=== PATIENT | male | born 1960 | race Caucasian/White ===

== ENCOUNTER 2019-11-02 23:58 | Inpatient (IN) ==
[2019-11-03] MEDS ORDERED: methylPREDNISolone 125 MG/2 ML VIAL IV STA (00:19)
[2019-11-03] MEDS ORDERED: ALBUT/IPRATROP 3MG/0.5MG NEB 3 ML VIAL NEB ONE (00:19)
[2019-11-03] MEDS ORDERED: ASPIRIN 300 MG SUPP PR ONE (00:21)
[2019-11-03 00:28] LABS: iSTAT Creatinine 2.4 mg/dl (0.6-1.3); iSTAT Hemoglobin 14.6 g/dl (14.0-18.0); iSTAT Ionized Calcium 1.13 mmol/l (1.12-1.32); iSTAT Potassium 4.3 mEq/L (3.3-5.0)
[2019-11-03] MEDS ORDERED: SODIUM CHLORIDE 0.9% 1000ML 1,000 ML IV SCH (00:30)
[2019-11-03] MEDS: MAGNESIUM SULFATE / D5W 1 GM/100 ML BAG IV SCH ×2 (00:30→01:48)
[2019-11-03] MEDS ORDERED: OPTIRAY 320 125ml IV PRN (00:31)
[2019-11-03] MEDS ORDERED: fentaNYL citrate 100 MCG/2 ML VIAL IV STA (00:31)
[2019-11-03] MEDS ORDERED: ONDANSETRON INJ 2 MG/ML 2 ML VIAL IV STA (00:31)
[2019-11-03] MEDS ORDERED: RAPID SEQUENCE INDUCTION BAG ONE (00:35)
[2019-11-03 00:41] LABS: Basophils # (auto) 0.05 K/uL (0-0.2); Basophils % (auto) 0.4 %; Eosinophils # (auto) 0.27 K/uL (0-0.5); Eosinophils % (auto) 2.4 %; Hematocrit (blood only) 40.2 % (42-52); Immature Granulocytes # (auto) 0.03 K/uL (0.00-0.02); Immature Granulocytes % (auto) 0.3 %; Lymphocytes # (auto) 4.31 K/uL (1.2-3.4); Lymphocytes % (auto) 37.6 %; Mean Corpuscular Hemoglobin 33.3 pg (25-34); Mean Corpuscular Hgb Conc 34.8 g/dL (32-36); Mean Corpuscular Volume 95.5 fL (80-100); Mean Platelet Volume 9.4 fL (7.4-10.4); Monocytes # (auto) 1.26 K/uL (0.11-0.59); Neutrophils # (auto) 5.53 K/uL (1.4-6.5); Neutrophils % (auto) 48.3 %; Platelet Count 282 K/uL (130-400); RDW Coefficient of Variation 13.2 % (11.5-14.5); RDW Standard Deviation 46.1 fL (36.4-46.3); Red Blood Count 4.21 M/uL (4.7-6.1); White Blood Count 11.45 K/uL (4.8-10.8)
[2019-11-03] MEDS ORDERED: FUROSEMIDE 40 MG/4 ML VIAL IV STA (00:46)
[2019-11-03] MEDS ORDERED: PROPOFOL IV EMULSION 10 MG/ML 100 ML VIAL IV ONE (00:46)
[2019-11-03] MEDS ORDERED: NITROGLYCERIN 2% OINTMENT 30GM TUBE EXT STA (00:48)
[2019-11-03] MEDS ORDERED: FUROSEMIDE 40 MG/4 ML VIAL IV ONE (00:48)
[2019-11-03 00:49] LABS: Albumin Level 3.3 gm/dl (3.4-5.0); BUN Creatinine Ratio 9.9 (10-20); Calcium 8.7 mg/dl (8.5-10.1); Creatinine Clr Calc Pharmacy 30.9 ml/min; Est GFR (Non-African American) 30.2; Potassium 4.2 mmol/L (3.5-5.1)
[2019-11-03] MEDS ORDERED: NITROGLYCERIN 2% OINTMENT 30GM TUBE ONE (00:49)
[2019-11-03 00:52] LABS: Albumin Globulin Ratio 0.8 (0.9-2); Bilirubin,Total 0.3 mg/dl (0.2-1); Globulin 4.3 gm/dl (2.5-4.0); Total Protein 7.6 gm/dl (6.4-8.2)
[2019-11-03 00:53] LABS: INR 0.9 (0.9-1.1); Partial Thromboplastin Ratio 0.9; Partial Thromboplastin Time 24.8 Seconds (21.0-31.0); Prothrombin Time 9.7 Seconds (9.0-12.0)
[2019-11-03] MEDS: PROPOFOL 1,000 MG/100 ML VIAL IV SCH ×2 (00:53→07:16)
[2019-11-03] MEDS ORDERED: PROPOFOL IV EMULSION 10 MG/ML 20 ML VIAL IV STA (01:05)
[2019-11-03] MEDS ORDERED: fentaNYL citrate 100 MCG/2 ML VIAL IV ONE (01:32)
--- NOTE | 2019-11-03 01:39 | History & Physical Report ---
Date of Service November 03, 2019 Assessment & Plan (1) Admitted to intensive care unit: Patient is admitted to the intensive care unit with acute respiratory failure and intubated in ED. Present on Admission?: Yes (2) Acute respiratory failure with hypoxia and hypercapnia: Acute respiratory failure with hypoxia and hypercapnia/acute exacerbation of CHF/COPD- Admitted to the ICU on mechanical ventilator- Follow serial CBC with differential, chemistry profile, magnesium, coags, serial troponins, and ABGs. Order 2D echocardiogram with Dopplers. Bicarb supplementation by push or drip Present on Admission?: Yes (3) Acute exacerbation of CHF (congestive heart failure): Order 2D echocardiogram with Dopplers. Chest x-ray suggests CHF. Will need diuresis. Pressure will need to be monitored closely, and may need to be supported while diuresing Present on Admission?: Yes (4) COPD (chronic obstructive pulmonary disease): Placed on duo nebs. Patient did have vomiting after intubation. OG tube was placed. Monitor for aspiration pneumonia Present on Admission?: Yes (5) Peripheral vascular disease: History of previous surgeries as noted in HPI. No acute issues at this time Present on Admission?: Yes (6) Hyperlipidemia: Unknown if on medications at this time. Check a fasting lipid panel Present on Admission?: Yes (7) Hypertension: Noted in history, Medication list unavailable at this time. Blood pressure decrease significantly from the 170s to the 130s as propofol has been titrated. Severe right kidney injury noted on ultrasound. Noted severe renal artery stenosis on the right and moderate stenosis on the left. Given IV dye by necessity during examination in ED. Monitor labs serially. Present on Admission?: Yes (8) CAD (coronary artery disease): History of severe RCA occlusion noted from chart review in 2003. History is limited. Present on Admission?: Yes History of Present Illness Chief Complaint: The patient initially presented to the emergency department with complaint of chest and left arm pain and shortness of breath that began about 2 hours prior to arrival, and worsened about 1 hour prior to arrival Primary Care Provider: Carmen Viramontes PA-C The patient is a 59-year-old male with a past medical history including PVD s/p right common iliac to right femoral bypass in 1999, aortobifemoral bypass in 06/2004, CAD with chronic RCA occlusion, HTN, tobacco abuse, COPD and hyperlipidemia as determined from chart review. He presented with the above symptoms, worsening during examination in the ED, and was intubated by Dr. Atkinson. At the time of my exam, the patient was intubated and sedated and not able to contribute to HPI or review of systems. Allergies Allergy/AdvReac Type Severity Reaction Status Date / Time No Known Allergies Allergy Unknown Verified 11/03/19 00:34 Home Medications Home Medications Medication Instructions Recorded Confirmed Type aspirin 81 mg PO DAILY 11/03/19 11/03/19 History Past Med/Surg History Medical History No pertinent past medical history Surgical History No pertinent past surgical history Social History Preferred Language: Indonesian Current Living Situation: Other Current Living Situation Comment: unknown pt intubated and sedated. no family present Feels Safe at Home: Yes Smoking Status: Unknown if ever smoked Review of Systems Review of Systems: Unobtainable due to reduced consciousness Physical Exam Physical Exam: The patient is intubated and sedated, normocephalic and atraumatic. HEENT--PERRL, mucous membranes and oropharynx dry. Neck--supple. No JVD. No bruits. Thyroid normal, trachea midline, no adenopathy. Heart--normal S1 and S2. No murmurs, rubs or gallops. Lungs--coarse breath sounds bilaterally. Abdomen--normal bowel sounds and soft. Nontender. Nondistended. Extremities--no cyanosis or clubbing. No edema. Dermatologic--normal skin turgor, normal color, no abnormal lymph nodes, no rash. Neurologic--limited exam Rheumatologic--limited exam Psychiatric--sedated and intubated Results & Data Vital Signs (Past 12 Hours) Vital Signs Temp Pulse Pulse Resp BP Pulse Ox 11/03/19 00:50 94 H 12 90 11/03/19 00:42 91 11/03/19 00:40 119 H 24 90 11/03/19 00:39 93 H 18 91 11/03/19 00:30 105 H 35 H 183/95 H 99 11/03/19 00:25 105 H 35 H 99 11/03/19 00:24 103 H 36 H 179/104 H 96 11/03/19 00:21 104 H 31 H 145/101 H 11/03/19 00:20 94 11/03/19 00:19 109 H 31 H 168/107 H 99 11/03/19 00:03 99 H 30 H 133/80 66 L 11/02/19 23:59 98.4 F 101 H 36 H 133/80 66 L Laboratory Results Laboratory Results WBC 11.45 K/uL (4.8-10.8) H 11/03/19 00:05 RBC 4.21 M/uL (4.7-6.1) L 11/03/19 00:05 Hgb 14.0 g/dL (14.0-18.0) 11/03/19 00:05 POC Hgb 14.6 g/dl (14.0-18.0) 11/03/19 00:16 Hct 40.2 % (42-52) L 11/03/19 00:05 POC Hct 43 % (42-52) 11/03/19 00:16 MCV 95.5 fL (80-100) 11/03/19 00:05 MCH 33.3 pg (25-34) 11/03/19 00:05 MCHC 34.8 g/dL (32-36) 11/03/19 00:05 RDW Std Deviation 46.1 fL (36.4-46.3) 11/03/19 00:05 RDW Coeff of Monika 13.2 % (11.5-14.5) 11/03/19 00:05 Plt Count 282 K/uL (130-400) 11/03/19 00:05 MPV 9.4 fL (7.4-10.4) 11/03/19 00:05 Immature Gran % (Auto) 0.3 % 11/03/19 00:05 Neut % (Auto) 48.3 % 11/03/19 00:05 Lymph % (Auto) 37.6 % 11/03/19 00:05 Irwin % (Auto) 11.0 % 11/03/19 00:05 Eos % (Auto) 2.4 % 11/03/19 00:05 Baso % (Auto) 0.4 % 11/03/19 00:05 Immature Gran # (Auto) 0.03 K/uL (0.00-0.02) H 11/03/19 00:05 Neut # (Auto) 5.53 K/uL (1.4-6.5) 11/03/19 00:05 Lymph # (Auto) 4.31 K/uL (1.2-3.4) H 11/03/19 00:05 Irwin # (Auto) 1.26 K/uL (0.11-0.59) H 11/03/19 00:05 Eos # (Auto) 0.27 K/uL (0-0.5) 11/03/19 00:05 Baso # (Auto) 0.05 K/uL (0-0.2) 11/03/19 00:05 PT 9.7 Seconds (9.0-12.0) 11/03/19 00:05 INR 0.9 (0.9-1.1) 11/03/19 00:05 APTT 24.8 Seconds (21.0-31.0) 11/03/19 00:05 PTT Ratio 0.9 11/03/19 00:05 POC Sodium 128 mEq/L (135-144) L 11/03/19 00:16 Sodium 129 mmol/L (136-145) L 11/03/19 00:05 POC Potassium 4.3 mEq/L (3.3-5.0) 11/03/19 00:16 Potassium 4.2 mmol/L (3.5-5.1) 11/03/19 00:05 POC Chloride 98 mEq/L (101-112) L 11/03/19 00:16 Chloride 97 mmol/L (98-107) L 11/03/19 00:05 Carbon Dioxide 21 mmol/L (21-32) 11/03/19 00:05 POC Total CO2 21 mEq/l (24-31) L 11/03/19 00:16 Anion Gap 11.0 (3-11) 11/03/19 00:05 POC Anion Gap 14.0 mmol/L (16-25) L 11/03/19 00:16 POC BUN 22 mg/dl (7-18) H 11/03/19 00:16 BUN 22 mg/dl (7-18) H 11/03/19 00:05 Creatinine 2.26 mg/dl (0.6-1.4) H 11/03/19 00:05 POC Creatinine 2.4 mg/dl (0.6-1.3) H 11/03/19 00:16 Est Cr Clr Drug Dosing 30.9 ml/min 11/03/19 00:05 Est GFR ( Amer) 35.0 11/03/19 00:05 Est GFR (Non-Af Amer) 30.2 11/03/19 00:05 BUN/Creatinine Ratio 9.9 (10-20) L 11/03/19 00:05 Glucose 104 mg/dl (70-99) H 11/03/19 00:05 POC Glucose (other) 104 mg/dl (70-99) H 11/03/19 00:16 Lactate 1.6 mmol/L (0.4-2.0) 11/03/19 01:36 Calcium 8.7 mg/dl (8.5-10.1) 11/03/19 00:05 POC Ioniz Calcium Alejandro 1.13 mmol/l (1.12-1.32) 11/03/19 00:16 Total Bilirubin 0.3 mg/dl (0.2-1) 11/03/19 00:05 AST 20 U/L (15-37) 11/03/19 00:05 ALT 16 U/L (12-78) 11/03/19 00:05 Alkaline Phosphatase 89 U/L (45-117) 11/03/19 00:05 POC Troponin I 0.07 ng/ml (0-0.045) H 11/03/19 00:22 Troponin I 0.619 ng/ml (0-0.045) H* 11/03/19 01:36 Total Protein 7.6 gm/dl (6.4-8.2) 11/03/19 00:05 Albumin 3.3 gm/dl (3.4-5.0) L 11/03/19 00:05 Globulin 4.3 gm/dl (2.5-4.0) H 11/03/19 00:05 Albumin/Globulin Ratio 0.8 (0.9-2) L 11/03/19 00:05 Lipase 359 U/L (73-393) 11/03/19 00:05 Ethyl Alcohol mg/dL < 3.0 mg/dl (0-3) 11/03/19 01:36 Code Status & VTE Plan Code Status Full code VTE Prophylaxis Plan VTE Prophylaxis will be ordered: Yes Critical Care Time Critical Care Time: Yes Total Critical Care Time: 45 Total critical care time was 45 minutes PG Care Time/CCT Total # of Minutes Spent Total Time Spent with Patient: Total time spent is greater than 50% in coordination of care (as documented) at patient's floor/unit and/or counseling patient: Critical Care Time: Yes Total Critical Care Time: 45
--- NOTE | 2019-11-03 01:45 | Emergency Department Note ---
Entered by Binta Gómez acting as a scribe for Maki Atkinson MD History of Present Illness General Chief complaint: Chest Pain Stated complaint: CAN'T BREATHE,CHEST PAIN,PAIN LFT ARM Source: patient History of Present Illness Onset (ago): hour(s) 2 Location: chest Severity: similar to prior episodes Pain Consistency: + constant Maximum Pain Intensity: 10 Current Pain Intensity: 10 Exacerbated By: + other (breathing) Associated symptoms: + denies other symptoms (denies back pain), + chest pain and + shortness of breath The patient is a 59 year old male who presents to the Emergency Room with complaints of chest pain that first began 2 hours prior to arrival, around 22:00. The patient states that he was in bed tonight when he experienced pain in his left chest and left arm, which was exacerbated with breathing. He reports that about an hour later, he was unable to catch his breath. The patient notes that he has had a heart attack in the past, but denies a history of coronary stents. He denies back pain. The patient has a history of smoking and drinking. Home Medications Home Medications Medication Instructions Recorded Confirmed Type aspirin 81 mg PO DAILY 11/03/19 11/03/19 History Allergies Allergy/AdvReac Type Severity Reaction Status Date / Time No Known Allergies Allergy Unknown Verified 11/03/19 00:34 Past Med/Surg History Medical History CAD (coronary artery disease) COPD (chronic obstructive pulmonary disease) Hyperlipidemia Hypertension No pertinent past medical history Peripheral vascular disease Surgical History No pertinent past surgical history Social History Preferred Language: Amharic Current Living Situation: Other Current Living Situation Comment: unknown pt intubated and sedated. no family present Feels Safe at Home: Yes Smoking Status: Unknown if ever smoked Review of Systems See HPI for pertinent positives & negatives. and A total of 10 systems reviewed and were otherwise negative Physical Exam Vital Signs Vital Signs - 24 hr 11/02/19 23:59 11/03/19 00:03 11/03/19 00:19 Temperature 36.9 C Temperature Source Oral Pulse Rate 101 H 99 H 109 H Pulse Rate [Right Finger] Pulse Rate from SpO2 Sensor 100 H 108 H Pulse Rhythm Regular Pulse Strength Normal Respiratory Rate 36 H 30 H 31 H Respiratory Effort / Characteristics Labored Retracting Short of Breath Respiratory Depth Respiratory Pattern Regular Blood Pressure 133/80 133/80 168/107 H Blood Pressure Mean 97 84 131 Blood Pressure Position Lying Pulse Oximetry 66 L 66 L 99 Oxygen Delivery Method Room Air Oxygen Flow Rate Fraction of Inspired Oxygen Sepsis Recent Fever Within 48 Hours No Sepsis New/Unexplained Change in Mental Status No Sepsis Action Taken by Nursing No Action Required 11/03/19 00:20 11/03/19 00:21 11/03/19 00:24 Temperature Temperature Source Pulse Rate 104 H 103 H Pulse Rate [Right Finger] Pulse Rate from SpO2 Sensor 103 H Pulse Rhythm Pulse Strength Respiratory Rate 31 H 36 H Respiratory Effort / Characteristics Respiratory Depth Respiratory Pattern Blood Pressure 145/101 H 179/104 H Blood Pressure Mean 119 121 Blood Pressure Position Pulse Oximetry 94 96 Oxygen Delivery Method Non-rebreather Oxygen Flow Rate 15 Fraction of Inspired Oxygen Sepsis Recent Fever Within 48 Hours Sepsis New/Unexplained Change in Mental Status Sepsis Action Taken by Nursing 11/03/19 00:25 11/03/19 00:30 11/03/19 00:39 Temperature Temperature Source Pulse Rate 105 H 93 H Pulse Rate [Right Finger] 105 H Pulse Rate from SpO2 Sensor 104 H Pulse Rhythm Pulse Strength Respiratory Rate 35 H 35 H 18 Respiratory Effort / Characteristics Spontaneous Accessory Muscle Use Moaning Spontaneous Accessory Muscle Use Labored Respiratory Depth Deep Respiratory Pattern Tachypnea Blood Pressure 183/95 H Blood Pressure Mean 139 Blood Pressure Position Pulse Oximetry 99 99 91 Oxygen Delivery Method BiPAP Oxygen Flow Rate Fraction of Inspired Oxygen 70 70 100 Sepsis Recent Fever Within 48 Hours Sepsis New/Unexplained Change in Mental Status Sepsis Action Taken by Nursing 11/03/19 00:40 11/03/19 00:42 11/03/19 00:50 Temperature Temperature Source Pulse Rate 119 H 94 H Pulse Rate [Right Finger] Pulse Rate from SpO2 Sensor 120 H 94 H Pulse Rhythm Pulse Strength Respiratory Rate 24 12 Respiratory Effort / Characteristics Respiratory Depth Respiratory Pattern Blood Pressure Blood Pressure Mean Blood Pressure Position Pulse Oximetry 90 91 90 Oxygen Delivery Method Oxygen Flow Rate Fraction of Inspired Oxygen Sepsis Recent Fever Within 48 Hours Sepsis New/Unexplained Change in Mental Status Sepsis Action Taken by Nursing 11/03/19 01:00 11/03/19 01:10 11/03/19 01:15 Temperature Temperature Source Pulse Rate 107 H 95 H 95 H Pulse Rate [Right Finger] Pulse Rate from SpO2 Sensor 108 H 95 H 97 H Pulse Rhythm Pulse Strength Respiratory Rate 32 H 34 H 35 H Respiratory Effort / Characteristics Respiratory Depth Respiratory Pattern Blood Pressure 175/93 H 154/81 H Blood Pressure Mean 128 115 Blood Pressure Position Pulse Oximetry 90 92 95 Oxygen Delivery Method Oxygen Flow Rate Fraction of Inspired Oxygen Sepsis Recent Fever Within 48 Hours Sepsis New/Unexplained Change in Mental Status Sepsis Action Taken by Nursing 11/03/19 01:20 11/03/19 01:25 11/03/19 01:30 Temperature Temperature Source Pulse Rate 101 H 93 H 94 H Pulse Rate [Right Finger] Pulse Rate from SpO2 Sensor 101 H 94 H 95 H Pulse Rhythm Pulse Strength Respiratory Rate 36 H 30 H 30 H Respiratory Effort / Characteristics Respiratory Depth Respiratory Pattern Blood Pressure 153/70 H 143/76 H Blood Pressure Mean 96 93 Blood Pressure Position Pulse Oximetry 94 97 96 Oxygen Delivery Method Oxygen Flow Rate Fraction of Inspired Oxygen Sepsis Recent Fever Within 48 Hours Sepsis New/Unexplained Change in Mental Status Sepsis Action Taken by Nursing Vital signs reviewed. General: Critically ill-appearing male, in no significant distress. HEENT: No scleral icterus, PERRLA, neck supple. Atraumatic. Cardiovascular: Tachycardic. Regular rate and rhythm, no extra sounds. Pulmonary: Tachypneic. Course breath sounds bilaterally, increased work of breathing. Abdomen: Soft, nontender, nondistended, positive bowel sounds. Post-surgical change to the mid abdomen Musculoskeletal: Atraumatic, no peripheral edema. Neurologic: Awake but somnolent. Answers simple questions appropriately Skin: Warm, dry, no rash Procedures Intubation Time out performed: Yes sedative: Etomidate Mg Given: 20 paralytic: Succinylcholine Mg Given: 100 Laryngoscope: fiber optic video scope ET Tube Size: 7.5 ET Tube Uncuffed: No Tube Secured Depth (cm): 23 Tube Secured Location: teeth Tube Placement Confirmation: visualized tube passing through cords, equal breath sounds bilaterally and confirmation by capnometry Patient Tolerated Procedure: well and no complications Intubation Complications: none Course Course 0002: Past medical records reviewed. The patient was evaluated in room A09B. A complete history and physical exam was performed. 0010: The patient will go for CT. 0057: I rechecked on the patient, who is going for ultrasound and receiving a Propofol bolus and Lasix 0148: I spoke to Dr. Thomas, who agreed to take over care of the patient. He is evaluating the patient at bedside. Administered Medications Propofol (Diprivan) 1,000 mg in 100 mls @ 11.448 mls/hr IV .Q8H45M [facility]; Protocol Stop: 11/06/19 00:59 Last Titration: 11/03/19 06:59 Dose: 35 mcg/kg/min, 13.4 mls/hr Documented by: [id number] Cosigned by: [id number] Titration: 11/03/19 06:45 Dose: 30 mcg/kg/min, 11.4 mls/hr Documented by: [id number] Cosigned by: [id number] Titration: 11/03/19 05:25 Dose: 30 mcg/kg/min, 11.4 mls/hr Documented by: [id number] Titration: 11/03/19 01:43 Dose: 35 mcg/kg/min, 13.4 mls/hr Documented by: [id number] Titration: 11/03/19 01:15 Dose: 30 mcg/kg/min, 11.4 mls/hr Documented by: [id number] Titration: 11/03/19 01:10 Dose: 20 mcg/kg/min, 7.6 mls/hr Documented by: [id number] Titration: 11/03/19 00:58 Dose: 10 mcg/kg/min, 3.8 mls/hr Documented by: [id number] Admin: 11/03/19 00:53 Dose: 5 mcg/kg/min, 1.9 mls/hr Documented by: [id number] Cosigned by: [id number] Famotidine 20 mg/ Syringe 5 mls @ 2.5 mls/min IV Q12H [facility] Stop: 12/03/19 02:59 Last Admin: 11/03/19 03:20 Dose: 2.5 mls/min Documented by: [id number] Fentanyl Citrate (Fentanyl Drip) 1,250 mcg in 250 mls @ 10 mls/hr IV .Q24H [facility]; Protocol Stop: 11/17/19 02:31 Last Titration: 11/03/19 06:59 Dose: 50 mcg/hr, 10 mls/hr Documented by: [id number] Cosigned by: [id number] Titration: 11/03/19 04:38 Dose: 50 mcg/hr, 10 mls/hr Documented by: [id number] Admin: 11/03/19 03:20 Dose: 25 mcg/hr, 5 mls/hr Documented by: [id number] Cosigned by: [id number] Discontinued Medications Albuterol (Duoneb) 12 ml NEB ONE ONE Stop: 11/03/19 00:20 Last Admin: 11/03/19 01:05 Dose: 12 ml Documented by: [id number] Aspirin (Aspirin) 300 mg OH ONE ONE Stop: 11/03/19 00:22 Last Admin: 11/03/19 00:31 Dose: 300 mg Documented by: [id number] Fentanyl Citrate (Fentanyl Citrate) 50 mcg IV NOW STA Stop: 11/03/19 00:32 Last Admin: 11/03/19 00:44 Dose: Not Given Documented by: [id number] Fentanyl Citrate (Fentanyl Citrate) 25 mcg IV NOW ONE Stop: 11/03/19 01:33 Last Admin: 11/03/19 01:43 Dose: 25 mcg Documented by: [id number] Furosemide (Lasix) 40 mg IV NOW STA Stop: 11/03/19 00:47 Last Admin: 11/03/19 00:53 Dose: 40 mg Documented by: [id number] Furosemide (Lasix) Confirm Administered Dose 40 mg IV .STK-MED ONE Stop: 11/03/19 00:49 Last Admin: 11/03/19 00:54 Dose: Not Given Documented by: [id number] Sodium Chloride (Nss 1000ml) 1,000 mls @ 100 mls/hr IV .Q10H [facility] Stop: 11/03/19 10:29 Last Infusion: 11/03/19 01:46 Dose: 0 mls/hr Documented by: [id number] Admin: 11/03/19 00:30 Dose: 100 mls/hr Documented by: [id number] Magnesium Sulfate/Dextrose (Magnesium Sulfate / D5w) 1 gm in 100 mls @ 100 mls/hr IV Q1H [facility] Stop: 11/03/19 02:29 Last Infusion: 11/03/19 02:14 Dose: 0 mls/hr Documented by: [id number] Admin: 11/03/19 01:48 Dose: 100 mls/hr Documented by: [id number] Infusion: 11/03/19 01:46 Dose: 0 mls/hr Documented by: [id number] Admin: 11/03/19 00:30 Dose: 100 mls/hr Documented by: [id number] Furosemide 40 mg/ Syringe 4 mls @ 4 mls/min IV ONE ONE Stop: 11/03/19 03:46 Last Admin: 11/03/19 04:04 Dose: 4 mls/min Documented by: [id number] Ioversol (Optiray 320 125ml) 125 ml IV ONCE PRN PRN Reason: Interaction Checking Stop: 11/07/19 00:30 Last Admin: 11/03/19 00:32 Dose: 118 ml Documented by: [id number] Methylprednisolone (Solumedrol) 125 mg IV NOW STA Stop: 11/03/19 00:20 Last Admin: 11/03/19 00:30 Dose: 125 mg Documented by: [id number] Miscellaneous () Confirm Administered Dose 1 ea .ROUTE .STK-MED ONE Stop: 11/03/19 00:36 Last Admin: 11/03/19 00:54 Dose: 1 ea Documented by: [id number] Nitroglycerin (Nitro-Bid 2%) 1 inch EXT NOW STA Stop: 11/03/19 00:49 Last Admin: 11/03/19 00:53 Dose: 1 inch Documented by: [id number] Nitroglycerin (Nitro-Bid 2%) Confirm Administered Dose 18 inch .ROUTE .STK-MED ONE Stop: 11/03/19 00:50 Last Admin: 11/03/19 00:54 Dose: Not Given Documented by: [id number] Ondansetron HCl (Zofran) 4 mg IV NOW STA Stop: 11/03/19 00:32 Last Admin: 11/03/19 00:44 Dose: Not Given Documented by: [id number] Propofol (Diprivan) Confirm Administered Dose 1,000 mg IV .STK-MED ONE Stop: 11/03/19 00:47 Last Admin: 11/03/19 00:54 Dose: Not Given Documented by: [id number] Propofol (Diprivan) 50 mg IV NOW STA Stop: 11/03/19 01:06 Last Admin: 11/03/19 01:00 Dose: 50 mg Documented by: [id number] Cosigned by: [id number] Critical Care Time Critical Care Time: Yes I have personally spent greater than 60 minutes of critical care time in the direct management of this patient. This includes bedside care, interpretation of diagnostic studies, and testing, discussion with consultants, patient, and family members, and other required patient management activities. This 60 minutes is in excess of all separately billable procedures. Medical Decision Making Differential Diagnosis Differential diagnosis: Etiologies such as infections, reactive airway disease, COPD, pneumonia, pleural effusion, pulmonary edema, ARDS, pneumothorax, CHF, cardiac ischemia, cardiac tamponade, dysrhythmia, anemia, pulmonary embolism, musculoskeletal, gastrointestinal process, as well as others were entertained. Medical Records Attestation: I reviewed the patient's medical records. Home Medications Current Medication List: was personally reviewed by me Laboratory Data Attestation: I reviewed the patient's lab results. Result diagrams: 11/03/19 04:55 11/03/19 04:55 Lab Results 11/03/19 11/03/19 11/03/19 Range/Units 00:05 00:05 00:05 WBC 11.45 H (4.8-10.8) K/uL RBC 4.21 L (4.7-6.1) M/uL Hgb 14.0 (14.0-18.0) g/dL POC Hgb (14.0-18.0) g/dl Hct 40.2 L (42-52) % POC Hct (42-52) % MCV 95.5 (80-100) fL MCH 33.3 (25-34) pg MCHC 34.8 (32-36) g/dL RDW Std Deviation 46.1 (36.4-46.3) fL RDW Coeff of Monika 13.2 (11.5-14.5) % Plt Count 282 (130-400) K/uL MPV 9.4 (7.4-10.4) fL Immature Gran % (Auto) 0.3 % Neut % (Auto) 48.3 % Lymph % (Auto) 37.6 % [place] % (Auto) 11.0 % Eos % (Auto) 2.4 % Baso % (Auto) 0.4 % Immature Gran # (Auto) 0.03 H (0.00-0.02) K/uL Neut # (Auto) 5.53 (1.4-6.5) K/uL Lymph # (Auto) 4.31 H (1.2-3.4) K/uL [place] # (Auto) 1.26 H (0.11-0.59) K/uL Eos # (Auto) 0.27 (0-0.5) K/uL Baso # (Auto) 0.05 (0-0.2) K/uL PT 9.7 (9.0-12.0) Seconds INR 0.9 (0.9-1.1) APTT 24.8 (21.0-31.0) Seconds PTT Ratio 0.9 POC Sodium (135-144) mEq/L Sodium 129 L (136-145) mmol/L POC Potassium (3.3-5.0) mEq/L Potassium 4.2 (3.5-5.1) mmol/L POC Chloride (101-112) mEq/L Chloride 97 L (98-107) mmol/L Carbon Dioxide 21 (21-32) mmol/L POC Total CO2 (24-31) mEq/l Anion Gap 11.0 (3-11) POC Anion Gap (16-25) mmol/L POC BUN (7-18) mg/dl BUN 22 H (7-18) mg/dl Creatinine 2.26 H (0.6-1.4) mg/dl POC Creatinine (0.6-1.3) mg/dl Est Cr Clr Drug Dosing 30.9 ml/min Est GFR ( Amer) 35.0 Est GFR (Non-Af Amer) 30.2 BUN/Creatinine Ratio 9.9 L (10-20) Glucose 104 H (70-99) mg/dl POC Glucose (other) (70-99) mg/dl Lactate (0.4-2.0) mmol/L Calcium 8.7 (8.5-10.1) mg/dl POC Ioniz Calcium Alejandro (1.12-1.32) mmol/l Total Bilirubin 0.3 (0.2-1) mg/dl AST 20 (15-37) U/L ALT 16 (12-78) U/L Alkaline Phosphatase 89 (45-117) U/L POC Troponin I (0-0.045) ng/ml Troponin I (0-0.045) ng/ml Total Protein 7.6 (6.4-8.2) gm/dl Albumin 3.3 L (3.4-5.0) gm/dl Globulin 4.3 H (2.5-4.0) gm/dl Albumin/Globulin Ratio 0.8 L (0.9-2) Lipase 359 (73-393) U/L Ethyl Alcohol mg/dL (0-3) mg/dl 11/03/19 11/03/19 11/03/19 Range/Units 00:16 00:22 01:36 WBC (4.8-10.8) K/uL RBC (4.7-6.1) M/uL Hgb (14.0-18.0) g/dL POC Hgb 14.6 (14.0-18.0) g/dl Hct (42-52) % POC Hct 43 (42-52) % MCV (80-100) fL MCH (25-34) pg MCHC (32-36) g/dL RDW Std Deviation (36.4-46.3) fL RDW Coeff of Monika (11.5-14.5) % Plt Count (130-400) K/uL MPV (7.4-10.4) fL Immature Gran % (Auto) % Neut % (Auto) % Lymph % (Auto) % [place] % (Auto) % Eos % (Auto) % Baso % (Auto) % Immature Gran # (Auto) (0.00-0.02) K/uL Neut # (Auto) (1.4-6.5) K/uL Lymph # (Auto) (1.2-3.4) K/uL [place] # (Auto) (0.11-0.59) K/uL Eos # (Auto) (0-0.5) K/uL Baso # (Auto) (0-0.2) K/uL PT (9.0-12.0) Seconds INR (0.9-1.1) APTT (21.0-31.0) Seconds PTT Ratio POC Sodium 128 L (135-144) mEq/L Sodium (136-145) mmol/L POC Potassium 4.3 (3.3-5.0) mEq/L Potassium (3.5-5.1) mmol/L POC Chloride 98 L (101-112) mEq/L Chloride (98-107) mmol/L Carbon Dioxide (21-32) mmol/L POC Total CO2 21 L (24-31) mEq/l Anion Gap (3-11) POC Anion Gap 14.0 L (16-25) mmol/L POC BUN 22 H (7-18) mg/dl BUN (7-18) mg/dl Creatinine (0.6-1.4) mg/dl POC Creatinine 2.4 H (0.6-1.3) mg/dl Est Cr Clr Drug Dosing ml/min Est GFR ( Amer) Est GFR (Non-Af Amer) BUN/Creatinine Ratio (10-20) Glucose (70-99) mg/dl POC Glucose (other) 104 H (70-99) mg/dl Lactate 1.6 (0.4-2.0) mmol/L Calcium (8.5-10.1) mg/dl POC Ioniz Calcium Alejandro 1.13 (1.12-1.32) mmol/l Total Bilirubin (0.2-1) mg/dl AST (15-37) U/L ALT (12-78) U/L Alkaline Phosphatase (45-117) U/L POC Troponin I 0.07 H (0-0.045) ng/ml Troponin I (0-0.045) ng/ml Total Protein (6.4-8.2) gm/dl Albumin (3.4-5.0) gm/dl Globulin (2.5-4.0) gm/dl Albumin/Globulin Ratio (0.9-2) Lipase (73-393) U/L Ethyl Alcohol mg/dL (0-3) mg/dl 11/03/19 11/03/19 Range/Units 01:36 01:36 WBC (4.8-10.8) K/uL RBC (4.7-6.1) M/uL Hgb (14.0-18.0) g/dL POC Hgb (14.0-18.0) g/dl Hct (42-52) % POC Hct (42-52) % MCV (80-100) fL MCH (25-34) pg MCHC (32-36) g/dL RDW Std Deviation (36.4-46.3) fL RDW Coeff of Monika (11.5-14.5) % Plt Count (130-400) K/uL MPV (7.4-10.4) fL Immature Gran % (Auto) % Neut % (Auto) % Lymph % (Auto) % [place] % (Auto) % Eos % (Auto) % Baso % (Auto) % Immature Gran # (Auto) (0.00-0.02) K/uL Neut # (Auto) (1.4-6.5) K/uL Lymph # (Auto) (1.2-3.4) K/uL [place] # (Auto) (0.11-0.59) K/uL Eos # (Auto) (0-0.5) K/uL Baso # (Auto) (0-0.2) K/uL PT (9.0-12.0) Seconds INR (0.9-1.1) APTT (21.0-31.0) Seconds PTT Ratio POC Sodium (135-144) mEq/L Sodium (136-145) mmol/L POC Potassium (3.3-5.0) mEq/L Potassium (3.5-5.1) mmol/L POC Chloride (101-112) mEq/L Chloride (98-107) mmol/L Carbon Dioxide (21-32) mmol/L POC Total CO2 (24-31) mEq/l Anion Gap (3-11) POC Anion Gap (16-25) mmol/L POC BUN (7-18) mg/dl BUN (7-18) mg/dl Creatinine (0.6-1.4) mg/dl POC Creatinine (0.6-1.3) mg/dl Est Cr Clr Drug Dosing ml/min Est GFR ( Amer) Est GFR (Non-Af Amer) BUN/Creatinine Ratio (10-20) Glucose (70-99) mg/dl POC Glucose (other) (70-99) mg/dl Lactate (0.4-2.0) mmol/L Calcium (8.5-10.1) mg/dl POC Ioniz Calcium Alejandro (1.12-1.32) mmol/l Total Bilirubin (0.2-1) mg/dl AST (15-37) U/L ALT (12-78) U/L Alkaline Phosphatase (45-117) U/L POC Troponin I (0-0.045) ng/ml Troponin I 0.619 H* (0-0.045) ng/ml Total Protein (6.4-8.2) gm/dl Albumin (3.4-5.0) gm/dl Globulin (2.5-4.0) gm/dl Albumin/Globulin Ratio (0.9-2) Lipase (73-393) U/L Ethyl Alcohol mg/dL < 3.0 (0-3) mg/dl Imaging Data Radiologist's Impression: Radiology results as stated below per my review and the radiologist's interpretation: CT CHEST Without Contrast: Interstitial edema and trace bilateral pleural effusions. No pneumonia CTA CHEST: No pulmonary embolism or acute aortic syndrome. Coronary artery calcifications. No pericardial effusion. 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 Severe stenosis within the right renal artery. Moderate stenosis in the left renal artery. US RENAL: Severe right hydronephrosis with diffuse cortical thinning in proximal ureteral dilatation as was seen on the prior CT on 02/03/2014. Unremarkable appearance of the left kidney. Radiologist: Kobi Cleveland MD Study ready at 01:46 and initial results transmitted at 01:51 ECG Data Attestation: I personally reviewed and interpreted this ECG as follows: Indication: + chest pain Rate (beats per minute): 98 Rhythm: + normal sinus ECG Intervals/blocks: + Left bundle branch block and + Prolonged QT (490) ECG [place]: + Left axis deviation ECG ST segments: + ST depression (Lateral) Additional Comments: 0019: Sinus tachycardia. PACs present. Left axis deviation. LBBB. Prolonged QTC at 501. Persistent T wave abnormalities in lateral leads 0057: Normal sinus rhythm, rate of 95. Left atrial enlargement. Left axis dev iation. Prolonged QTC. Lateral repolarization abnormality. LBBB. Blood Pressure Blood Pressure Findings: Normal blood pressure MDM Narrative This patient was evaluated and appeared to be in significant respiratory difficulty. IV access was obtained and laboratory work was drawn. Patient was placed on the monitor worker. EKG reveals no evidence of acute ischemia, left bundle branch block. He was placed on a nonrebreather with improvement in his oxygen saturations. Patient was taken quickly to CT scan to rule out aortic dissection given his history of vasculopathy. This study was obtained and is negative. There is evidence of congestive failure. Patient seemed to be getting fatigued with his respirations and was placed on BiPAP. Patient's initial laboratory work is fairly reassuring with the exception of a creatinine of 2.3. CT imaging does reveal a grossly abnormal right kidney. Follow-up ultrasound was performed and reveals a hydronephrosis that is consistent with previous imaging. Patient's initial troponin is only slightly elevated at 0.07. Lactic acid is normal at 1.6. Patient was intubated shortly after returning to the emergency department for respiratory fatigue and hypoxia on BiPAP. Please see my procedure note above. Follow-up chest x-ray reveals gross pulmonary edema. Patient was given 40 mg of IV Lasix and 1 inch of Nitropaste was applied. Patient was discussed with Dr. Canales of the hospitalist service as well as Jgauar Mcdowell PA-C of the ICU. Patient will be evaluated for further management. Impression & Plan Acute exacerbation of CHF (congestive heart failure), Flash pulmonary edema Discharge Plan Visit Data *Final* Discharge Date/Time: 11/03/19 01:57 Chief Complaint: Chest Pain Stated Complaint: CAN'T BREATHE,CHEST PAIN,PAIN LFT ARM ED Provider: Maki Atkinson Discharge Problem: Acute exacerbation of CHF (congestive heart failure), Flash pulmonary edema Patient Disposition: Admitted As Inpatient Discharge Instructions Interventions: ED Discharge Assessment Last Done: 11/03/19 01:57 The scribe's documentation has been prepared under my direction and personally reviewed by me in its entirety. I confirm that the note above accurately reflects all work, treatment, procedures, and medical decision making performed by me.
[2019-11-03] MEDS ORDERED: ICU PROTOCOL FOR HYPERGLYCEMIA PRN (02:31)
[2019-11-03] MEDS ORDERED: fentaNYL citrate 100 MCG/2 ML VIAL IV PRN ×2 (02:32)
[2019-11-03] MEDS ORDERED: fentaNYL DRIP 1,250 MCG/250 ML BAG IV SCH (02:32)
--- NOTE | 2019-11-03 02:34 | Critical Care Consultation ---
Date of Consultation November 03, 2019 Assessment & Plan (1) Admitted to intensive care unit: Reason Critically Ill: 59-year-old male with flash pulmonary edema with acute hypoxia with respiratory failure requiring emergent endotracheal intubation and close hemodynamic monitoring. Noted to have an STEMI with concerning findings of left bundle branch block on EKG. NEURO - * CAM ICU: NEGATIVE * Sedation: Propofol gtt * Pain: Fenanyl gtt * Chronic EtOH Abuse: * Currently on Propofol gtt. * Consider transitioning to CIWA protocol w/ benzos when extubated. CARDIAC/VASCULAR - * Acute CHF Exacerbation: * Florid pulmonary edema noted on initial CXR. * Received IV Lasix and topical nitroglycerin in the emergency department. * Slight elevation of troponin on presentation. * Initially hypertensive. * Continue with spot dose Lasix and scheduled nitro. * Aggressive ventilator therapy. * NSETMI: * Leaked troponins of concern with acute presentation of CHF. EKG concerning with left bundle branch block as well. Unable to find previous EKGs. When patient arrived in the ICU, he is awake, alert, and oriented. He declines any pain, specifically chest pain at this time. * Will trend troponins. * Repeat EKGs with complaints of chest pain. * Concerning in the patient with history of coronary artery disease/peripheral arterial disease * EKG: ST@108bpm. LBBB, No ST elevation. QTc 501ms. * Monitor on telemetry. RESPIRATORY - * Acute hypoxic with hypercapnic respiratory failure in the setting of acute pulmonary edema: * Required emergent endotracheal intubation. * Initial ABG in the emergency department of 7.18/60/97/23. * Concerning for severe ARDS with a P:F ration of 97. * On exam, patient appears to have mixed pulmonary disease with COPD likely contributing as well as he is dyssynchronous with the ventilator and with inspiratory wheezes. After adequate sedation and albuterol nebulizers, the patient did improve and became much more synchronous with the ventilator and was moving air much better. * Repeat ABG after sedation demonstrates improvement with a blood gas of 7.306/43/272/22.1. Will titrate down FiO2. Will not proceed with ARDSNet protocol at this time. * Did have vomiting shortly after intubation. Will add Zosyn. GI/NUTRITION - * N.p.o. at this time. * Prophylaxis: Famotidine RENAL/LYTES - * Acute kidney injury: * Unknown from baseline. * Will attempt diuresis in this patient with caution. * Monitor lytes - replace appropriately. * Hyponatremia: * Presumed to be related to chronic EtOH abuse. * IVF: Will hold initially while attempting to diurese. - * Ding in place - Strict I&Os. ENDO - * No h/o DM or Thyroid Dz. * BSGs per unit protocol. ISS --> gtt per unit policy. HEME - * Stable H&H ID - * Will add Zosyn for ?? Aspiration event. LINES/IV ACCESS - * PIVs x2 * LEFT Radial A-line. * Ding DVT PROPHYLAXIS - * Heparin gtt to be started 2/2 NSTEMI w/ LBBB and elevated Troponin. * SCDs I have personally spent 75 minutes of critical care time in the direct management of this patient. This is a life/limb threatening event. This includes time spent evaluating patient, direct bedside care, chart review, placing orders, interpretation of diagnostic studies, discussion with consultants, patient, and family members, as well as other required patient management activities. This time is exclusive of all separately billable procedures, and teaching time and separate from and in addition to any other critical care service time. Thank you for allowing us to participate in the care of this patient. Please refer to my attending physician's documentation for any further recommendations. (2) Acute respiratory failure with hypoxia and hypercapnia: (3) Acute exacerbation of CHF (congestive heart failure): (4) COPD (chronic obstructive pulmonary disease): (5) Peripheral vascular disease: (6) Hyperlipidemia: (7) Hypertension: (8) CAD (coronary artery disease): (9) NSTEMI (non-ST elevated myocardial infarction): (10) Flash pulmonary edema: (11) Respiratory acidosis: (12) LINDSAY (acute kidney injury): (13) Hyponatremia: Supervising Physician Co-Signing Physician Notes I was made aware of the patient via telephone call at approximately 7 AM. Please refer to my documentation for further details. History of Present Illness Attending Physician: Abimael Thomas MD History of Present Illness Patient is a 59-year-old male with a significant past medical history of peripheral arterial disease, coronary artery disease, COPD, hyperlipidemia, and hypertension who presented to the emergency department with abrupt onset of shortness of breath that started approximately 1/2 hours prior to arrival in the emergency department. Patient was brought by private vehicle and upon arrival in the emergency department his oxygen saturations were in the 60s. His respiratory rate was in the 40s. He initially was tried on BiPAP without succes s. He was subsequently intubated and emergently sent for CTA of the chest with concern for possible dissection. Chest x-ray postintubation was concerning for fluid pulmonary edema. He received IV Lasix and received topical nitroglycerin. EKG concerning for left bundle branch block. No recent EKGs available for comparison. Upon evaluation in the emergency department, the patient is intubated and sedated. He is dyssynchronous with the ventilator. He is tachypneic. Patient tachycardic with heart rate in the 1 teens. Patient does not respond at this time secondary to sedation. Allergies Allergy/AdvReac Type Severity Reaction Status Date / Time No Known Allergies Allergy Unknown Verified 11/03/19 00:34 Home Medications Home Medications Medication Instructions Recorded Confirmed Type aspirin 81 mg PO DAILY 11/03/19 11/03/19 History Patient History Medical History CAD (coronary artery disease) COPD (chronic obstructive pulmonary disease) Hyperlipidemia Hypertension No pertinent past medical history Peripheral vascular disease Surgical History No pertinent past surgical history Social History Preferred Language: Qat[place] Current Living Situation: Other Current Living Situation Comment: unknown pt intubated and sedated. no family present Feels Safe at Home: Yes Smoking Status: Unknown if ever smoked Review of Systems Review of Systems: Unobtainable due to cognitive status and Unobtainable due to endotracheal tube Physical Exam Physical Exam: VITAL SIGNS - Vital signs and nursing notes were reviewed. GENERAL - 59-year-old male appearing older than h is stated age who is in no acute distress. Intubated and sedated. Respiratory distress. SKIN - Without rashes. HEAD - NC/AT. EYES - PERRL with EOMI bilaterally. Sclera anicteric. EARS - No deformities of external structures noted on gross examination bilaterally. NOSE - Midline and without cyanosis. No epistaxis or purulent drainage noted. MOUTH/OROPHARYNX - Without perioral cyanosis. ET Tube in place. NECK - Neck with FROM. Supple to palpation. No nuchal rigidity. LUNGS -tachypneic and dyssynchronous with the ventilator. Decreased breath sounds noted to the RIGHT sided lung field with scant inspiratory wheezes noted. Coarse breath sounds at the bases bilaterally. CARDIAC - RRR with S1/S2. No murmur, rubs, or gallops appreciated. ABDOMEN - Abdominal contour flat without pulsations or visible masses. BS normoactive all four quadrants. No tenderness, palpable masses, hepatosplenomegaly, or ascites noted. EXTREMITIES - No clubbing or peripheral cyanosis. Slight pretibial edema present. +3/5 radial and dorsalis pedis pulses palpated throughout. +5/5 strength noted in UE/LE bilaterally. NEUROLOGIC - No focal neurological deficits. Results & Data Vital Signs (Past 12 Hours) Vital Signs Temp Pulse Pulse Resp BP BP Pulse Ox 11/03/19 02:10 94 H 100 11/03/19 02:09 98 H 11/03/19 02:05 36.5 C 100 H 33 H 152/81 H 100 11/03/19 01:50 89 124/75 100 11/03/19 01:47 94 H 130/75 98 11/03/19 01:45 24 11/03/19 01:42 185 H 98 11/03/19 01:40 187 H 150/82 H 98 11/03/19 01:39 98 H 146/106 H 97 11/03/19 01:30 94 H 30 H 96 11/03/19 01:25 93 H 30 H 143/76 H 97 11/03/19 01:20 101 H 36 H 153/70 H 94 11/03/19 01:15 95 H 35 H 154/81 H 95 11/03/19 01:10 95 H 34 H 92 11/03/19 01:00 107 H 32 H 175/93 H 90 11/03/19 00:50 94 H 12 90 11/03/19 00:42 91 11/03/19 00:40 119 H 24 90 11/03/19 00:39 93 H 18 91 11/03/19 00:30 105 H 35 H 183/95 H 99 11/03/19 00:25 105 H 35 H 99 11/03/19 00:24 103 H 36 H 179/104 H 96 11/03/19 00:21 104 H 31 H 145/101 H 11/03/19 00:20 94 11/03/19 00:19 109 H 31 H 168/107 H 99 11/03/19 00:03 99 H 30 H 133/80 66 L 11/02/19 23:59 36.9 C 101 H 36 H 133/80 66 L Coding Level of Care Code Critical Care 1st 30-74 mins Diagnoses Admitted to intensive care unit Z78.9 Acute respiratory failure with hypoxia and hypercapnia J96.01; J96.02 Acute exacerbation of CHF (congestive heart failure) I50.9 COPD (chronic obstructive pulmonary disease) J44.9 Peripheral vascular disease I73.9 Hyperlipidemia E78.5 Hypertension I10 CAD (coronary artery disease) I25.10 NSTEMI (non-ST elevated myocardial infarction) I21.4 Flash pulmonary edema J81.0 Respiratory acidosis E87.2 LINDSAY (acute kidney injury) N17.9 Hyponatremia E87.1 Time Spent (min) 75
[2019-11-03] MEDS ORDERED: FAMOTIDINE 20 MG in SYRINGE 3 ML IV SCH (03:00)
--- NOTE | 2019-11-03 03:03 | Procedure Note ---
Procedure Note Date of Service November 03, 2019 Procedure: Arterial Line Placement Attending: Dr. Vega APC: Jaguar Mcdowell PA-C Indication: Monitoring on Pressors Anesthesia: Lidocaine 1% Emergent consent implied in the setting of acute respiratory failure requiring endotracheal intubation and need for frequent ABGs. Patient is able to nod yes/no and agrees to procedure. A time-out was completed verifying correct patient, procedure, site, positioning, and implant(s) or special equipment if applicable. Allens test was performed to ensure adequate perfusion. Patients LEFT wrist was prepped and draped in the usual sterile fashion. Ultrasound guidance was used to aid needle placement. A 20g Arrow arterial line was introduced into the LEFT Radial artery. Catheter was threaded, and the needle was removed with appropriate blood return. Good waveform was observed. The patient tolerated the procedure well. Confirmation of placement with ultrasound. Blood Loss: Minimal Complications: None Procedural Ultrasound Guidance: Procedure Date: 11/03/2019 Indication: Frequent ABGs, BP Monitoring Attending: Dr. Vega APC: Jaguar Mcdowell PA-C Artery Identified: YES Line confirmed in Artery with ultrasound: YES Complications: NONE Patient tolerated procedure: WELL Coding CPT Codes Tubes, Drains, and Vasc Access - Tubes, Drains, and Vasc Access: [id number] Place Catheter In Artery ([id number])
[2019-11-03 03:25] LABS: iSTAT Arterial Blood Gas HCO3 22 meg/L (19-24); iSTAT Arterial Blood Gas pCO2 44 mmHg (35-46); iSTAT Arterial Blood Gas pH 7.31 (7.35-7.45); iSTAT Arterial Blood Gas pO2 274 mmHg (80-95); iSTAT Carbon Dioxide 23 mEq/l (24-31); iSTAT Site Art Line
[2019-11-03] MEDS ORDERED: FUROSEMIDE 40 MG in SYRINGE 0 ML IV ONE (03:45)
[2019-11-03 05:18] LABS: Basophils # (auto) 0.01 K/uL (0-0.2); Basophils % (auto) 0.1 %; Hematocrit (blood only) 34.7 % (42-52); Hemoglobin 12.2 g/dL (14.0-18.0); Immature Granulocytes # (auto) 0.03 K/uL (0.00-0.02); Immature Granulocytes % (auto) 0.3 %; Lymphocytes # (auto) 0.38 K/uL (1.2-3.4); Lymphocytes % (auto) 4.2 %; Mean Corpuscular Hemoglobin 32.9 pg (25-34); Mean Corpuscular Hgb Conc 35.2 g/dL (32-36); Mean Corpuscular Volume 93.5 fL (80-100); Mean Platelet Volume 9.3 fL (7.4-10.4); Monocytes # (auto) 0.17 K/uL (0.11-0.59); Monocytes % (auto) 1.9 %; Neutrophils # (auto) 8.55 K/uL (1.4-6.5); Neutrophils % (auto) 93.5 %; Platelet Count 239 K/uL (130-400); RDW Coefficient of Variation 13.2 % (11.5-14.5); RDW Standard Deviation 45.4 fL (36.4-46.3); Red Blood Count 3.71 M/uL (4.7-6.1); White Blood Count 9.14 K/uL (4.8-10.8)
[2019-11-03 05:27] LABS: Partial Thromboplastin Ratio 0.9; Partial Thromboplastin Time 24.5 Seconds (21.0-31.0)
[2019-11-03 05:46] LABS: iSTAT Arterial Blood Gas HCO3 20 meg/L (19-24); iSTAT Arterial Blood Gas pCO2 36 mmHg (35-46); iSTAT Arterial Blood Gas pH 7.36 (7.35-7.45); iSTAT Arterial Blood Gas pO2 132 mmHg (80-95); iSTAT Carbon Dioxide 21 mEq/l (24-31); iSTAT Site Art Line
[2019-11-03 05:58] LABS: Alanine Aminotransferase 19 U/L (12-78); Albumin Level 2.7 gm/dl (3.4-5.0); Alkaline Phosphatase 77 U/L (45-117); Aspartate Aminotransferase 71 U/L (15-37); Bilirubin Direct < 0.1 mg/dl (0-0.2); Bilirubin,Total 0.3 mg/dl (0.2-1); Lipase 170 U/L (73-393); Magnesium 2.9 mg/dl (1.8-2.4); Total Protein 6.4 gm/dl (6.4-8.2)
[2019-11-03] MEDS ORDERED: HEPARIN SODIUM/DEXTROSE 25,000 UNITS/500 ML BAG IV SCH (06:15)
[2019-11-03 06:23] LABS: BUN Creatinine Ratio 10.9 (10-20); Creatinine Clr Calc Pharmacy 32.1 ml/min; Est GFR (African American) 36.3; Est GFR (Non-African American) 31.3; Potassium 4.8 mmol/L (3.5-5.1)
[2019-11-03] MEDS ORDERED: NITROGLYCERIN 2% OINTMENT 30GM TUBE EXT SCH (07:00)
[2019-11-03] MEDS ORDERED: ALBUT/IPRATROP 3MG/0.5MG NEB 3 ML VIAL INH SCH (07:00)
--- NOTE | 2019-11-03 07:14 | XRay Report ---
XR chest 1V portable HISTORY: intubation COMPARISON: None. FINDINGS: Endotracheal tube terminates 6.8 cm in the dorina. No pneumothorax. The heart is mildly enl arged. Trace bilateral pleural effusions. Diffuse interstitial thickening with perihilar hazy airspac e opacities. This likely represents pulmonary edema. IMPRESSION: 1. The endotracheal tube terminates 6.8 cm from the dorina. This should be advanced by approximately 3 cm. 2. Moderate to severe pulmonary edema. 3. These findings were called/faxed to the referring physician following dictation. ACT 112: Negative or not required by law. Electronically signed by: Uvaldo Bolaños M.D. 11/03/2019 7:13 AM
--- NOTE | 2019-11-03 07:18 | Ultrasound Report ---
RENAL ULTRASOUND HISTORY: Right-sided hydronephrosis. R renal abnormality on CT, unstable resp, creat 2.4 COMPARISON: Chest CTA 11/03/2019. Abdomen and pelvis CTA 02/03/2014. FINDINGS: Right kidney: 13.7 cm. Chronic moderate to severe hydroureteronephrosis to the level of the mid urete r. This is similar to the prior studies. Diffuse thinning and echogenic renal cortex likely secondary to the chronic hydronephrosis. This is also unchanged. Left kidney: 9.8 cm. No hydronephrosis. Normal corticomedullary differentiation and cortical thicknes s. Bladder: Decompressed by Ding catheter and not well visualized. IMPRESSION: 1. Chronic moderate to severe right-sided hydroureteronephrosis. This is not significantly changed co mpared to the 2013 examination. 2. Normal left kidney. ACT 112: Negative or not required by law. Electronically signed by: Uvaldo Bolaños M.D. 11/03/2019 7:17 AM
--- NOTE | 2019-11-03 07:28 | XRay Report ---
KUB HISTORY: Nasogastric tube placement COMPARISON: None. FINDINGS: Moderate well-formed stool seen throughout the colon. No evidence for bowel obstruction. Na sogastric tube terminates in the expected location of the body of the stomach. No renal calculi. No ureteral calculi. No pneumoperitoneum or pneumatosis. IMPRESSION: Nasogastric tube terminates in the body of the stomach. ACT 112: Negative or not required by law. Electronically signed by: Uvaldo Bolaños M.D. 11/03/2019 7:27 AM
--- NOTE | 2019-11-03 07:33 | CT Scan Report ---
CT ANGIOGRAM OF THE CHEST COMBO CLINICAL HISTORY: Cough and dyspnea. COMPARISON STUDY: No priors. TECHNIQUE: Before and following the IV administration of 118 cc of Optiray 320, CT angiogram of the c hest was performed from the thoracic inlet to the upper abdomen utilizing the dissection protocol. Im ages are reviewed in the axial, sagittal, and coronal planes. 3-D MIPS images are created and assesse d. IV contrast was administered without complication. A dose lowering technique was utilized adherin g to the principles of ALARA. The examination is compromised by motion artifact. CT DOSE: 561.09 mGy.cm FINDINGS: Thyroid: Imaged portions of the thyroid gland are normal in size and attenuation. Thoracic aorta: No intramural hematoma is seen on the unenhanced series. There is atherosclerotic arturo cification of the thoracic aorta, which is normal in caliber and demonstrates standard 3-vessel arch anatomy. No thoracic aorta dissection is seen. The arch vessels are patent. 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 Question dissection versus low bifurcation of the left common carotid artery . This is only seen on image #1. Heart: The heart is mildly enlarged and without pericardial effusion. The coronary arteries are dense ly calcified. The pulmonary trunk is normal in caliber. Lungs and pleural spaces: Evaluation of the lung parenchyma is degraded by motion artifact. Emphysema tous change is noted. Diffuse peribronchial thickening is observed. Additionally, there is diffuse in traocular septal thickening consistent with congestive failure. There are small pleural effusions wit h bibasilar atelectasis. A 1.5 cm nodular density is questioned at the right lung base on image #182 of the postcontrast series. Layering secretions are noted in the trachea. Mediastinum: There are numerous subcentimeter mediastinal lymph nodes. These are not pathologically e nlarged by size criteria. Ester: Clear. Axillae: There is no axillary lymphadenopathy. Upper abdomen: There is a small hiatal hernia. The partially visualized kidneys are atrophic. Moderat e to severe right-sided hydronephrosis is noted. There is high-grade stenosis of the superior mesente khadijah artery seen on image #350. High-grade stenosis is also seen at the origin of the right renal alyssa ry. Skeletal structures: The skeletal structures are osteopenic. Mild degenerative change is noted in the shoulders and thoracic spine. No lytic or blastic bony lesions are seen. IMPRESSION: 1. There is no aneurysm or dissection of the thoracic aorta. 2. Cardiomegaly and emphysema with evidence of congestive failure and interstitial edema. 3. Small pleural effusions. 4. A 1.5 cm nodular density is questioned at the right lung base. This is not well assessed due to badillo rrounding atelectasis. A follow-up chest CT in 3 months time is recommended for reassessment. 5. 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 6. Question dissection versus low bifurcation of the left common carotid artery. This is only partial ly visualized and follow-up with a CT angiogram of the neck is recommended for further assessment. 7. 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 8. Moderate to severe right-sided hydronephrosis. 9. Additional findings as above. ACT 112: Positive. There are findings on this exam that require communication between the performing entity and the patient following Patient Test Result Information Act ([place] Act 112) guidelines. Electronically signed by: Tyler Gresham M.D. 11/03/2019 7:32 AM
--- NOTE | 2019-11-03 07:38 | XRay Report ---
XR chest 1V portable CLINICAL HISTORY: f/u dyspnea COMPARISON STUDY: 11/03/2019 12:43 AM FINDINGS: Endotracheal tube 5.4 cm with a chronic. Findings a mildly improved pulmonary edema. Diaphragms are smooth. Small left as well as right pleural effusion. IMPRESSION: 1. Improving pulmonary edema. 2. Endotracheal tube 5.4 cm above the dorina. ACT 112: Negative or not required by law. The above report was generated using voice recognition software. It may contain grammatical, syntax or spelling errors. Electronically signed by: Erlin Navarro M.D. 11/03/2019 7:36 AM
[2019-11-03] MEDS ORDERED: PIPERACILL/TAZOBAC CONSULT ACTIVE PRN (07:39)
[2019-11-03] MEDS: [UNRECOGNIZED DRUG - REMARK] IV SCH ×2 (07:51→07:52)
[2019-11-03] MEDS ORDERED: PIPERACILLIN/TAZOBACTAM 4.5 GM in DEXTROSE 5% 100 ML IV STA (07:58)
[2019-11-03] MEDS ORDERED: MIDAZOLAM HCL 125 MG/250 ML BAG IV SCH (09:03)
[2019-11-03] MEDS ORDERED: HEPARIN SOD (PORCINE) 1000 UNIT/ML 10 ML VIAL IV STA (09:07)
--- NOTE | 2019-11-03 09:17 | Cardiology Consultation ---
Date of Consultation November 03, 2019 Assessment & Plan (1) NSTEMI (non-ST elevated myocardial infarction): Patient has significant elevation in his cardiac biomarkers. His presentation is consistent with an acute coronary syndrome. It is possible that he had decompensation a prior cardiomyopathy resulting in demand ischemia, but I think more likely scenario given his known vascular disease is acute coronary syndrome. He was placed on heparin infusion. He did receive aspirin. We will give him beta-blockade. Given his renal dysfunction we will defer Karl inhibition currently. He currently claims to be pain free. Unfortunately, his left bundle branch block precludes use of the EKG has a valuable tool. He will need consideration for coronary angiography. As we cannot perform this at our institution currently, we will arrange for transfer. (2) Peripheral vascular disease: He is known to have stenosis of the right renal artery, claudication involving both lower extremities, surgical revascularization including an ileo femoral bypass on the right and subsequent aortobifemoral bypass. His recent CT also suggests occlusion of the vertebral artery as well as stenosis of the superior mesenteric artery. (3) Acute respiratory failure with hypoxia and hypercapnia: This appears to be related to pulmonary edema. Likely from acute ischemia. With diuresis and positive pressure ventilation he has improved significantly. (4) Aortic regurgitation: [id number] (5) Left bundle branch block: Unknown chronicity (6) CAD (coronary artery disease): Reported to have occlusion of the right coronary artery. Whether this is chronic and total occlusion is unclear by report. (7) Cardiomyopathy: Likely ischemic. Of unknown chronicity. Certainly acute LV failure resulted in significant pulmonary edema which is now resolving. This could been related to acute ischemia. It is unclear what his outpatient medical regimen consisted of. He does not endorse frequent visits with a adolescent coordinator. However, he will be on beta-blockade. He has undergone diuresis. Ideally he would also be on Karl inhibition but will need to monitor his renal function before initiating that therapy. Revascularization may also improve his LV function. History of Present Illness Reason for Consultation: Congestive heart failure, elevated troponin Requesting Physician: July Attending Physician: Maik Spencer History of Present Illness The patient is a 59-year-old gentleman with extensive history of both peripheral and coronary vascular disease who experienced the acute onset of substernal chest and left arm discomfort last evening. This quickly progressed to involve significant breathing difficulty as well. He was driven to our facility where he experienced decompensation due to declining pulmonary status and required intubation with mechanical ventilation. Patient is known to have occlusion of the right coronary artery by history. He also has significant peripheral vascular disease to involve both an ileo femoral bypass on the right followed by a aortobifemoral bypass several years later. Right renal artery stenosis. Occlusion the vertebral artery based on CT performed last evening. Nonfunctioning right kidney with hydronephrosis. 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 The history is limited as the patient is currently intubated and sedated. However, he is able to respond to questions. He denies any symptoms of chest pain currently. He did endorse symptoms of chest pain and arm discomfort last evening. He denies any abdominal complaints. He does endorse claudication. Allergies Allergy/AdvReac Type Severity Reaction Status Date / Time No Known Allergies Allergy Unknown Verified 11/03/19 00:34 Home Medications Home Medications Medication Instructions Recorded Confirmed Type aspirin 81 mg PO DAILY 11/03/19 11/03/19 History Patient History Medical History CAD (coronary artery disease) COPD (chronic obstructive pulmonary disease) Hyperlipidemia Hypertension No pertinent past medical history Peripheral vascular disease Surgical History No pertinent past surgical history Social History Preferred Language: Frisian Current Living Situation: Other Current Living Situation Comment: unknown pt intubated and sedated. no family present Feels Safe at Home: Yes Smoking Status: Unknown if ever smoked Review of Systems Review of Systems: Unobtainable due to endotracheal tube Physical Exam Physical Exam: The patient is alert and can answer questions despite being intubated. HEENT: Pupils are equal and reactive to light and accommodation. Extraocular movements are intact. The sclerae are anicteric. Neuro: Cranial nerves intact Neck: Patient's neck is supple. Lungs: Clear to auscultation bilaterally. Some coarse upper airway sounds. He has good air movement without use of accessory muscles. No rales wheezes or rhonchi. Cardiac: Heart demonstrates a regular rate and rhythm. Normal S1 and S2. Very soft crescendo systolic murmur. Pulses: There is a radial art line and left radial artery. The right radial pulses faint. There is a strong palpable right femoral pulse. Left femoral pulses normal. No bruits. Extremities: There was no evidence of hypoperfusion. There is no cyanosis or clubbing. There is no edema. Skin: I did not appreciate any rashes on examination today. Results & Data Vital Signs (Past 12 Hours) Vital Signs Temp Pulse Pulse Resp BP BP Pulse Ox 11/03/19 07:35 68 68 20 100 11/03/19 06:00 68 126/66 100 11/03/19 05:30 65 20 100 11/03/19 05:00 69 93/58 L 98 11/03/19 04:03 103 H 112/67 98 11/03/19 04:00 72 94 11/03/19 03:43 77 22 98 11/03/19 03:33 94 H 102/64 97 11/03/19 03:15 93 H 124/66 100 11/03/19 03:01 91 H 129/77 100 11/03/19 03:00 93 H 99 11/03/19 02:51 87 99/67 L 100 11/03/19 02:15 100 H 152/81 H 11/03/19 02:10 94 H 100 11/03/19 02:09 98 H 11/03/19 02:05 36.5 C 100 H 33 H 152/81 H 100 11/03/19 01:50 89 124/75 100 11/03/19 01:47 94 H 130/75 98 11/03/19 01:45 24 11/03/19 01:42 185 H 98 11/03/19 01:40 187 H 150/82 H 98 11/03/19 01:39 98 H 146/106 H 97 11/03/19 01:30 94 H 30 H 96 11/03/19 01:25 93 H 30 H 143/76 H 97 11/03/19 01:20 101 H 36 H 153/70 H 94 11/03/19 01:15 95 H 35 H 154/81 H 95 11/03/19 01:10 95 H 34 H 92 11/03/19 01:00 107 H 32 H 175/93 H 90 11/03/19 00:50 94 H 12 90 11/03/19 00:42 91 12/30/19 00:40 119 H 24 90 11/03/19 00:39 93 H 18 91 11/03/19 00:30 105 H 35 H 183/95 H 99 11/03/19 00:25 105 H 35 H 99 11/03/19 00:24 103 H 36 H 179/104 H 96 11/03/19 00:21 104 H 31 H 145/101 H 11/03/19 00:20 94 11/03/19 00:19 109 H 31 H 168/107 H 99 11/03/19 00:03 99 H 30 H 133/80 66 L 11/02/19 23:59 36.9 C 101 H 36 H 133/80 66 L Laboratory Results Abnormal Lab Results 11/03/19 11/03/19 11/03/19 00:05 00:05 00:05 WBC 11.45 H RBC 4.21 L Hgb 14.0 POC Hgb Hct 40.2 L POC Hct MCV 95.5 MCH 33.3 MCHC 34.8 RDW Std Deviation 46.1 RDW Coeff of Monika 13.2 Plt Count 282 MPV 9.4 Immature Gran % (Auto) 0.3 Neut % (Auto) 48.3 Lymph % (Auto) 37.6 Jackson % (Auto) 11.0 Eos % (Auto) 2.4 Baso % (Auto) 0.4 Immature Gran # (Auto) 0.03 H Neut # (Auto) 5.53 Lymph # (Auto) 4.31 H Jackson # (Auto) 1.26 H Eos # (Auto) 0.27 Baso # (Auto) 0.05 PT 9.7 INR 0.9 APTT 24.8 PTT Ratio 0.9 Sample Site POC pH POC pCO2 POC pO2 POC HCO3 POC Base Excess POC ABG O2 Sat Michael Test O2 Delivery Device POC O2 Rate Minute Ventilation Tidal Volume PEEP POC Sodium Sodium 129 L POC Potassium Potassium 4.2 POC Chloride Chloride 97 L Carbon Dioxide 21 POC Total CO2 Anion Gap 11.0 POC Anion Gap POC BUN BUN 22 H Creatinine 2.26 H POC Creatinine Est Cr Clr Drug Dosing 30.9 Est GFR ( Amer) 35.0 Est GFR (Non-Af Amer) 30.2 BUN/Creatinine Ratio 9.9 L Glucose 104 H POC Glucose (other) Lactate Calcium 8.7 POC Ioniz Calcium Alejandro Phosphorus Magnesium Total Bilirubin 0.3 Direct Bilirubin AST 20 ALT 16 Alkaline Phosphatase 89 POC Troponin I Troponin I Total Protein 7.6 Albumin 3.3 L Globulin 4.3 H Albumin/Globulin Ratio 0.8 L Lipase 359 Procalcitonin Random Cortisol Nasal Screen MRSA (PCR) Ethyl Alcohol mg/dL 11/03/19 11/03/19 11/03/19 00:16 00:22 01:36 WBC RBC Hgb POC Hgb 14.6 Hct POC Hct 43 MCV MCH MCHC RDW Std Deviation RDW Coeff of Monika Plt Count MPV Immature Gran % (Auto) Neut % (Auto) Lymph % (Auto) Jackson % (Auto) Eos % (Auto) Baso % (Auto) Immature Gran # (Auto) Neut # (Auto) Lymph # (Auto) Jackson # (Auto) Eos # (Auto) Baso # (Auto) PT INR APTT PTT Ratio Sample Site POC pH POC pCO2 POC pO2 POC HCO3 POC Base Excess POC ABG O2 Sat Michael Test O2 Delivery Device POC O2 Rate Minute Ventilation Tidal Volume PEEP POC Sodium 128 L Sodium POC Potassium 4.3 Potassium POC Chloride 98 L Chloride Carbon Dioxide POC Total CO2 21 L Anion Gap POC Anion Gap 14.0 L POC BUN 22 H BUN Creatinine POC Creatinine 2.4 H Est Cr Clr Drug Dosing Est GFR ( Amer) Est GFR (Non-Af Amer) BUN/Creatinine Ratio Glucose POC Glucose (other) 104 H Lactate 1.6 Calcium POC Ioniz Calcium Alejandro 1.13 Phosphorus Magnesium Total Bilirubin Direct Bilirubin AST ALT Alkaline Phosphatase POC Troponin I 0.07 H Troponin I Total Protein Albumin Globulin Albumin/Globulin Ratio Lipase Procalcitonin Random Cortisol Nasal Screen MRSA (PCR) Ethyl Alcohol mg/dL 11/03/19 11/03/19 11/03/19 01:36 01:36 02:15 WBC RBC Hgb POC Hgb Hct POC Hct MCV MCH MCHC RDW Std Deviation RDW Coeff of Monika Plt Count MPV Immature Gran % (Auto) Neut % (Auto) Lymph % (Auto) Jackson % (Auto) Eos % (Auto) Baso % (Auto) Immature Gran # (Auto) Neut # (Auto) Lymph # (Auto) Jackson # (Auto) Eos # (Auto) Baso # (Auto) PT INR APTT PTT Ratio Sample Site POC pH POC pCO2 POC pO2 POC HCO3 POC Base Excess POC ABG O2 Sat Michael Test O2 Delivery Device POC O2 Rate Minute Ventilation Tidal Volume PEEP POC Sodium Sodium POC Potassium Potassium POC Chloride Chloride Carbon Dioxide POC Total CO2 Anion Gap POC Anion Gap POC BUN BUN Creatinine POC Creatinine Est Cr Clr Drug Dosing Est GFR ( Amer) Est GFR (Non-Af Amer) BUN/Creatinine Ratio Glucose POC Glucose (other) Lactate Calcium POC Ioniz Calcium Alejandro Phosphorus Magnesium Total Bilirubin Direct Bilirubin AST ALT Alkaline Phosphatase POC Troponin I Troponin I 0.619 H* Total Protein Albumin Globulin Albumin/Globulin Ratio Lipase Procalcitonin Random Cortisol Nasal Screen MRSA (PCR) Negative Ethyl Alcohol mg/dL < 3.0 11/03/19 11/03/19 11/03/19 03:08 04:55 04:55 WBC 9.14 RBC 3.71 L Hgb 12.2 L POC Hgb Hct 34.7 L POC Hct MCV 93.5 MCH 32.9 MCHC 35.2 RDW Std Deviation 45.4 RDW Coeff of Monika 13.2 Plt Count 239 MPV 9.3 Immature Gran % (Auto) 0.3 Neut % (Auto) 93.5 Lymph % (Auto) 4.2 Jackson % (Auto) 1.9 Eos % (Auto) 0.0 Baso % (Auto) 0.1 Immature Gran # (Auto) 0.03 H Neut # (Auto) 8.55 H Lymph # (Auto) 0.38 L Jackson # (Auto) 0.17 Eos # (Auto) 0.00 Baso # (Auto) 0.01 PT 10.0 INR 1.0 APTT 24.5 PTT Ratio 0.9 Sample Site Art Line POC pH 7.31 L POC pCO2 44 POC pO2 274 H POC HCO3 22 POC Base Excess -4.0 POC ABG O2 Sat 100.0 H Michael Test NA O2 Delivery Device Ventilator POC O2 Rate 24 Minute Ventilation 16.9 Tidal Volume 500 PEEP 10 POC Sodium Sodium POC Potassium Potassium POC Chloride Chloride Carbon Dioxide POC Total CO2 23 L Anion Gap POC Anion Gap POC BUN BUN Creatinine POC Creatinine Est Cr Clr Drug Dosing Est GFR ( Amer) Est GFR (Non-Af Amer) BUN/Creatinine Ratio Glucose POC Glucose (other) Lactate Calcium POC Ioniz Calcium Alejandro Phosphorus Magnesium Total Bilirubin Direct Bilirubin AST ALT Alkaline Phosphatase POC Troponin I Troponin I Total Protein Albumin Globulin Albumin/Globulin Ratio Lipase Procalcitonin Random Cortisol Nasal Screen MRSA (PCR) Ethyl Alcohol mg/dL 11/03/19 11/03/19 11/03/19 04:55 04:55 04:55 WBC RBC Hgb POC Hgb Hct POC Hct MCV MCH MCHC RDW Std Deviation RDW Coeff of Monika Plt Count MPV Immature Gran % (Auto) Neut % (Auto) Lymph % (Auto) Jackson % (Auto) Eos % (Auto) Baso % (Auto) Immature Gran # (Auto) Neut # (Auto) Lymph # (Auto) Jackson # (Auto) Eos # (Auto) Baso # (Auto) PT INR APTT PTT Ratio Sample Site POC pH POC pCO2 POC pO2 POC HCO3 POC Base Excess POC ABG O2 Sat Michael Test O2 Delivery Device POC O2 Rate Minute Ventilation Tidal Volume PEEP POC Sodium Sodium POC Potassium Potassium POC Chloride Chloride Carbon Dioxide POC Total CO2 Anion Gap POC Anion Gap POC BUN BUN Creatinine POC Creatinine Est Cr Clr Drug Dosing Est GFR ( Amer) Est GFR (Non-Af Amer) BUN/Creatinine Ratio Glucose POC Glucose (other) Lactate 0.8 Calcium POC Ioniz Calcium Alejandro Phosphorus 4.0 Magnesium 2.9 H Total Bilirubin 0.3 Direct Bilirubin < 0.1 AST 71 H ALT 19 Alkaline Phosphatase 77 POC Troponin I Troponin I 10.500 H* Total Protein 6.4 Albumin 2.7 L Globulin Albumin/Globulin Ratio Lipase 170 Procalcitonin Random Cortisol 37.55 Nasal Screen MRSA (PCR) Ethyl Alcohol mg/dL 11/03/19 11/03/19 11/03/19 04:55 04:55 05:30 WBC RBC Hgb POC Hgb Hct POC Hct MCV MCH MCHC RDW Std Deviation RDW Coeff of Monika Plt Count MPV Immature Gran % (Auto) Neut % (Auto) Lymph % (Auto) Jackson % (Auto) Eos % (Auto) Baso % (Auto) Immature Gran # (Auto) Neut # (Auto) Lymph # (Auto) Jackson # (Auto) Eos # (Auto) Baso # (Auto) PT INR APTT PTT Ratio Sample Site Art Line POC pH 7.36 POC pCO2 36 POC pO2 132 H POC HCO3 20 POC Base Excess -5.0 POC ABG O2 Sat 99.0 H Michael Test NA O2 Delivery Device Ventilator POC O2 Rate 22 Minute Ventilation 10.4 Tidal Volume 500 PEEP 8 POC Sodium Sodium 127 L POC Potassium Potassium 4.8 POC Chloride Chloride 94 L Carbon Dioxide 22 POC Total CO2 21 L Anion Gap 11.0 POC Anion Gap POC BUN BUN 24 H Creatinine 2.19 H POC Creatinine Est Cr Clr Drug Dosing 32.1 Est GFR ( Amer) 36.3 Est GFR (Non-Af Amer) 31.3 BUN/Creatinine Ratio 10.9 Glucose 137 H POC Glucose (other) Lactate Calcium 8.0 L POC Ioniz Calcium Alejandro Phosphorus Magnesium Total Bilirubin Direct Bilirubin AST ALT Alkaline Phosphatase POC Troponin I Troponin I Total Protein Albumin Globulin Albumin/Globulin Ratio Lipase Procalcitonin 0.20 Random Cortisol Nasal Screen MRSA (PCR) Ethyl Alcohol mg/dL Diagnostic Findings CT of the chest did not reveal any pulmonary embolus. He did have pulmonary edema and a pulmonary nodule. Vertebral artery is felt to be occluded. There was notable stenosis of the right renal artery with right kidney hydronephrosis. There is evidence stenosis involving the superior mesenteric artery. Chest x-ray demonstrated severe pulmonary edema Echocardiogram performed today revealed moderately reduced LV systolic function with an estimated ejection fraction 35 percent. Mild to moderate aortic insufficiency. Regional wall motion abnormalities. ECG Additional Comments: Normal sinus rhythm with left bundle branch block PG Care Time/CCT Total # of Minutes Spent Total Time Spent with Patient: Total time spent is greater than 50% in coordination of care (as documented) at patient's floor/unit and/or counseling patient:
[2019-11-03] MEDS ORDERED: DOXYCYCLINE HYCLATE 200 MG in DEXTROSE 5% 250 ML IV STA (09:34)
--- NOTE | 2019-11-03 09:36 | Communication Note ---
Date of Service: November 03, 2019 I have seen and evaluated the patient. Patient is able to follow complex commands despite sedation, he reports that he is not having active chest pain at this time. In review of prior records and discussion with my PA, the patient syndrome started with 2 hours of chest pain with radiation into the left arm preceding his presentation to the ED. In the emergency department he was found to have acute hypoxic respiratory failure and required intubation. His initial troponins were elevated mildly we thought this was a type II ischemic complex, he gets most of his care from the DC in [place], I do not have prior records. His initial EKG demonstrated a left bundle dirk block, age indeterminate, repeat EKGs x2 have not demonstrated significant change. Repeat troponins revealed an elevation to 10. At this time we have received an echo and he has been evaluated by cardiology. At the time of this dictation the creative technologist is interpreting his echo, it is their opinion that the patient needs emergent transfer to a facility that can perform cardiac PCI. We contacted [facility] they do not have a Criminal Justice Program Director. The second choice was [facility] there is a 4- hour wait for beds and they encourage us to look elsewhere. At this time [facility] has an available bed and he is being transferred to the neuro ICU under the care of Dr. Carrillo. He was started on a heparin infusion without bolus, when I evaluated the patient he had been on the infusion for 2 hours we have decided to give him a bolus of 5000 units. We will transition from propofol sedation to Versed and fentanyl. He has been treated empirically with Zosyn for possible pneumonia. Per report the patient vomited at some point after intubation. His KUB demonstrates a large amount of stool in the colon, we will continue with NG suction however he is only had approximately 300 mL's out since OG placement. If this is a pneumonia we will cover atypical organisms with Doxy 200 mg load IV x1, his QTC was prolonged on EKG therefore I am avoiding fluoroquinolones and macrolides. He has been treated with Solu-Medrol, he is got a 300 mg aspirin suppository, he received 2 doses of Lasix and had urine output of 1 L since admission. I discussed with Dr. Quinonez of cardiology his echo of her via verbal report revealed an EF of 35% focal regional wall abnormalities to include the inferior wall and the distal anterior wall he has mild to moderate aortic regurgitation. Of note I was informed by cardiology he underwent a renal perfusion scan his right kidney is nonfunctional via scanning in August of this year and he had a renal artery stenosis on the right kidney. His current ventilator settings mode: PRVC tidal volume 500 ml, PEEP of 8, rate of 22, FiO2 75 Most recent ABG at 530 demonstrated a pH of 7.36, PCO2 36, PaO2 of 132 bicarb 20 base excess of -5 sats 99%. Most recent labs demonstrate sodium 127, potassium 4.8, chloride mildly low at 94, carbon dioxide 22 normal anion gap, BUN mildly elevated at 24, creatinine mildly improved from admission 2.19 (of note patient received contrast CT scan to rule out PE from the emergency department) glucose mildly elevated 137 calcium low at 8, magnesium 2.9 AST is mildly elevated at 71 ALT within normal limits at 19. Troponins elevated from 0.619-10.5, lipase procalcitonin and random cortisol all normal. At this point time we are attempting to secure emergent ground transportation, we have contacted both [employer] and and [facility] which are not flying. At this time the closest facility that can accept the patient in a timely fashion is [facility]. I have personally spent 105 minutes of critical care time in the direct management of this patient. This is a life/limb threatening event. This includes time spent evaluating patient, direct bedside care, chart review, placing orders, interpretation of diagnostic studies, discussion with consultants, patient, and/or family members regarding treatment decisions, as well as other required patient management activities. This time is exclusive of all separately billable procedures, and teaching time and separate from and in addition to any other critical care service time. Of note the the [facility] is in contact for possible transfer, at this time the closest [facility] facility would be [facility] which would be a 3-hour ground transport while [facility] would be 1 hour in the setting of having a possible acute coronary syndrome it is my medical recommendation that the patient transfer to [facility].
[2019-11-03] MEDS ORDERED: METOPROLOL TARTRATE 1 MG/ML VIAL IV STA (09:38)
[2019-11-03] MEDS ORDERED: FENTANYL BOLUS FROM BAG IV ONE (10:00)
[2019-11-03] MEDS ORDERED: SUCCINYLCHOLINE CHLORIDE 20 MG/ML 10 ML VIAL IV ONE (11:32)
[2019-11-03] MEDS ORDERED: ETOMIDATE 2 MG/ML 20 ML VIAL IV ONE (11:32)
--- NOTE | 2019-11-05 22:49 | Discharge Summary ---
Date of Service November 03, 2019 Admission HPI Per Admitting Provider The patient is a 59-year-old male with a past medical history including PVD s/p right common iliac to right femoral bypass in 1999, aortobifemoral bypass in 06/2004, CAD with chronic RCA occlusion, HTN, tobacco abuse, COPD and hyperlipidemia as determined from chart review. He presented with the above symptoms, worsening during examination in the ED, and was intubated by Dr. Atkisnon. At the time of my exam, the patient was intubated and sedated and not able to contribute to HPI or review of systems. Principal Diagnosis Acute respiratory failure Discharge Exam The patient is intubated and sedated, normocephalic and atraumatic. HEENT--PERRL, mucous membranes and oropharynx dry. Neck--supple. No JVD. No bruits. Thyroid normal, trachea midline, no adenopathy. Heart--normal S1 and S2. No murmurs, rubs or gallops. Lungs--coarse breath sounds bilaterally. Abdomen--normal bowel sounds and soft. Nontender. Nondistended. Extremities--no cyanosis or clubbing. No edema. Dermatologic--normal skin turgor, normal color, no abnormal lymph nodes, no rash. Neurologic--limited exam Rheumatologic--limited exam Psychiatric--sedated and intubated Discharge Data Allergies Allergy/AdvReac Type Severity Reaction Status Date / Time No Known Allergies Allergy Unknown Verified 11/03/19 00:34 Consultations 11/03/19 00:52 ED Decision to Admit Stat 11/03/19 02:31 Consult Case Management - Discharge Planning Routine Consult Trial Management Associate Routine 11/03/19 06:04 Consult Cardiology Routine 11/03/19 09:42 Burn CD for patient Stat Ordered Studies 11/03/19 00:05 CT angio chest dissec wo/w con Urgent 11/03/19 00:27 US renal/blad retro comp Urgent Hospital Course (1) Admitted to intensive care unit: Patient is admitted to the intensive care unit with acute respiratory failure and intubated in ED. Patient was evaluated by Trial Management Associate. [facility]l be transferred to [facility]. Appreciate input from Trial Management Associate: Noted below: Patient is able to follow complex commands despite sedation, he reports that he is not having active chest pain at this time. In review of prior records and discussion with my PA, the patient syndrome started with 2 hours of chest pain with radiation into the left arm preceding his presentation to the ED. In the emergency department he was found to have acute hypoxic respiratory failure and required intubation. His initial troponins were elevated mildly we thought this was a type II ischemic complex, he gets most of his care from the [facility] in [place], I do not have prior records. His initial EKG demonstrated a left bundle dirk block, age indeterminate, repeat EKGs x2 have not demonstrated significant change. Repeat troponins revealed an elevation to 10. At this time we have received an echo and he has been evaluated by cardiology. At the time of this dictation the clinical auditor is interpreting his echo, it is their opinion that the patient needs emergent transfer to a facility that can perform cardiac PCI. We contacted [facility] they do not have a [facility]. The second choice was [facility] there is a 4-hour wait for beds and they encourage us to look elsewhere. At this time [facility] has an available bed and he is being transferred to the neuro ICU under the care of Dr. Carrillo. He was started on a heparin infusion without bolus, when I evaluated the patient he had been on the infusion for 2 hours we have decided to give him a bolus of 5000 units. We will transition from propofol sedation to Versed and fentanyl. He has been treated empirically with Zosyn for possible pneumonia. Per report the patient vomited at some point after intubation. His KUB demonstrates a large amount of stool in the colon, we will continue with NG suction however he is only had approximately 300 mL's out since OG placement. If this is a pneumonia we will cover atypical organisms with Doxy 200 mg load IV x1, his QTC was prolonged on EKG therefore I am avoiding fluoroquinolones and macrolides. He has been treated with Solu-Medrol, he is got a 300 mg aspirin suppository, he received 2 doses of Lasix and had urine output of 1 L since admission. I discussed with Dr. Quinonez of cardiology his echo of her via verbal report revealed an EF of 35% focal regional wall abnormalities to include the inferior wall and the distal anterior wall he has mild to moderate aortic regurgitation. Of note I was informed by cardiology he underwent a renal perfusion scan his right kidney is nonfunctional via scanning in August of this year and he had a renal artery stenosis on the right kidney. His current ventilator settings mode: PRVC tidal volume 500 ml, PEEP of 8, rate of 22, FiO2 75 Most recent ABG at 530 demonstrated a pH of 7.36, PCO2 36, PaO2 of 132 bicarb 20 base excess of -5 sats 99%. Most recent labs demonstrate sodium 127, potassium 4.8, chloride mildly low at 94, carbon dioxide 22 normal anion gap, BUN mildly elevated at 24, creatinine mildly improved from admission 2.19 (of note patient received contrast CT scan to rule out PE from the emergency department) glucose mildly elevated 137 calcium low at 8, magnesium 2.9 AST is mildly elevated at 71 ALT within normal limits at 19. Troponins elevated from 0.619-10.5, lipase procalcitonin and random cortisol all normal. At this point time we are attempting to secure emergent ground transportation, we have contacted both [facility] and and [facility] which are not flying. At this time the closest facility that can accept the patient in a timely fashion is [facility]. (2) Acute respiratory failure with hypoxia and hypercapnia: Acute respiratory failure with hypoxia and hypercapnia/acute exacerbation of CHF/COPD- Admitted to the ICU on mechanical ventilator- Follow serial CBC with differential, chemistry profile, magnesium, coags, serial troponins, and ABGs. Order 2D echocardiogram with Dopplers. Bicarb supplementation by push or drip (3) Acute exacerbation of CHF (congestive heart failure): Order 2D echocardiogram with Dopplers. Chest x-ray suggests CHF. Will need diuresis. Pressure will need to be monitored closely, and may need to be supported while diuresing (4) COPD (chronic obstructive pulmonary disease): Placed on duo nebs. Patient did have vomiting after intubation. OG tube was placed. Monitor for aspiration pneumonia (5) Peripheral vascular disease: History of previous surgeries as noted in HPI. No acute issues at this time (6) Hyperlipidemia: Unknown if on medications at this time. Check a fasting lipid panel (7) Hypertension: Noted in history, Medication list unavailable at this time. Blood pressure decrease significantly from the 170s to the 130s as propofol has been titrated. Severe right kidney injury noted on ultrasound. Noted severe renal artery stenosis on the right and moderate stenosis on the left. Given IV dye by necessity during examination in ED. Monitor labs serially. (8) CAD (coronary artery disease): History of severe RCA occlusion noted from chart review in 2003. History is limited. Total Time Total Time Spent Total Time Spent (In Minutes): 32 Discharge Plan Discharge Items Patient Disposition: Transfer Acute Care Hospital Reason For Visit: ACUTE RESPIRATORY FAILURE W/ HYPOXIA & HYPERCAPNEA Discharge Diagnosis: Acute Coronary Syndrome, Pulmonary Edema, CHF Activity: As commented below Non-emergency contact: Hospitalist and Hog Worker Call non-emergency contact if: your symptoms worsen and your pain is worsening Follow-up/Referrals: Carmen Viramontes PA-C [Primary Care Provider] - Diet: Heart Healthy Addtl Attending Provider Instructions: Patient 59 year old man with no direct PMH here for 1 hour history of chest pain and left shoulder pain. ECG with possibly new left bundle and elevated troponins .65 on admission up to 10 on repeat. Patient decompensated shortly after arriving in ED and was intubated and chest x ray showed florid pulmonary edema. patient diuresing well down about a liter since admission and O2 requirement on vent decreasing Pending Studies at Discharge: No Stand-Alone Forms: Call Back Authorization, [facility] Skilled Items Patient informed of condition?: Yes DNR: No Discharge Level of Care: Other Communicable Disease: No Discharge Prognosis: Improving Lines: Peripheral IV Urinary Catheter: Yes Medications and DC Order Prescriptions: Continued aspirin 81 mg Tablet,Delayed Release (Dr/Ec) 81 mg PO DAILY RF: 0 Discharge Orders: Discharge Order (Routine); Ordered 11/03/19 Ordered By: Walter Singh Admission Data Admit Date/Time: 11/03/19 01:37 Attending Provider: Maik Spencer Admit Provider: Abimael Thomas Primary Care Provider: Carmen Viramontes Other Providers: Abimael Thomas ; Wilfred Piedra ; Apolinar Doherty Other Interventions: Discharge Summary Assessment (RN) Last Done: 11/03/19 11:29 DC Date/Time DO NOT enter until pt leaves facility: 11/03/19 11:33
== END 2019-11-03 11:33 | disposition short-term general hospital (02) | DRG 189 ==
LOC: ED 23:58 → SUATTDRO 11-03 01:37 → 1E 11-03 01:37

== ENCOUNTER 2019-11-30 19:27 | Inpatient (IN) ==
[2019-11-30] MEDS ORDERED: ALBUT/IPRATROP 3MG/0.5MG NEB 3 ML VIAL NEB STA (19:45)
[2019-11-30] MEDS ORDERED: PIPERACILLIN/TAZOBACTAM 4.5 GM/120 ML BAG IV ONE (19:45)
[2019-11-30] MEDS ORDERED: PIPERACILL/TAZOBAC CONSULT ACTIVE PRN (19:45)
[2019-11-30] MEDS ORDERED: METOCLOPRAMIDE HCL INJ 5 MG/ML 2 ML VIAL IV STA (19:57)
--- NOTE | 2019-11-30 20:00 | XRay Report ---
XR chest 1V portable HISTORY: 59 years-old Male Dyspnea acute shortness of breath COMPARISON: Chest radiograph 11/03/2019, CTA chest 11/03/2019 TECHNIQUE: Portable AP view of the chest FINDINGS: Cardiac silhouette is enlarged, unchanged. Calcified plaque of the thoracic aortic arch. Pulmonary va scular congestion with suggestion of mild pulmonary edema. No pneumothorax. Small pleural effusions w ith right greater than left bibasilar opacities. Emphysema with chronic fibrotic changes. Degenerativ e changes of the shoulders and spine. IMPRESSION: 1. Cardiomegaly with pulmonary edema and small pleural effusions. 2. Right greater than left bibasilar opacities suggest probable atelectasis. 3. Emphysema. ACT 112: Negative or not required by law. The above report was generated using voice recognition software. It may contain grammatical, syntax o r spelling errors. Electronically signed by: Ranulfo Horton M.D. 11/30/2019 7:59 PM
[2019-11-30 20:17] LABS: Basophils # (auto) 0.03 K/uL (0-0.2); Basophils % (auto) 0.2 %; Eosinophils # (auto) 0.25 K/uL (0-0.5); Eosinophils % (auto) 2.1 %; Hematocrit (blood only) 32.5 % (42-52); Hemoglobin 11.2 g/dL (14.0-18.0); Immature Granulocytes # (auto) 0.05 K/uL (0.00-0.02); Immature Granulocytes % (auto) 0.4 %; Lymphocytes # (auto) 2.97 K/uL (1.2-3.4); Lymphocytes % (auto) 24.6 %; Mean Corpuscular Hemoglobin 31.8 pg (25-34); Mean Corpuscular Hgb Conc 34.5 g/dL (32-36); Mean Corpuscular Volume 92.3 fL (80-100); Mean Platelet Volume 9.5 fL (7.4-10.4); Monocytes # (auto) 1.14 K/uL (0.11-0.59); Monocytes % (auto) 9.4 %; Neutrophils # (auto) 7.64 K/uL (1.4-6.5); Neutrophils % (auto) 63.3 %; Platelet Count 290 K/uL (130-400); RDW Coefficient of Variation 13.4 % (11.5-14.5); RDW Standard Deviation 44.8 fL (36.4-46.3); Red Blood Count 3.52 M/uL (4.7-6.1); White Blood Count 12.08 K/uL (4.8-10.8)
[2019-11-30 20:17] LABS: Base Excess VBG -10.2 mEq/L; Oxygen Saturation VBG 83.8 %; pH VBG 7.28 (7.36-7.41)
[2019-11-30 20:29] LABS: Alanine Aminotransferase 13 U/L (12-78); Albumin Level 3.4 gm/dl (3.4-5.0); Aspartate Aminotransferase 15 U/L (15-37); BUN Creatinine Ratio 12.2 (10-20); Blood Urea Nitrogen 25 mg/dl (7-18); Calcium 8.9 mg/dl (8.5-10.1); Carbon Dioxide 15 mmol/L (21-32); Chloride 96 mmol/L (98-107); Est GFR (African American) 39.4; Glucose 113 mg/dl (70-99); Magnesium 2.1 mg/dl (1.8-2.4); Potassium 4.3 mmol/L (3.5-5.1); Sodium 127 mmol/L (136-145)
[2019-11-30 20:34] LABS: Albumin Globulin Ratio 0.8 (0.9-2); Alkaline Phosphatase 99 U/L (45-117); Bilirubin,Total 0.4 mg/dl (0.2-1); Globulin 4.4 gm/dl (2.5-4.0); NT Pro B Type Natriuretic Pept 6044 pg/ml (0-900); Total Protein 7.8 gm/dl (6.4-8.2); Troponin I 0.033 ng/ml (0-0.045)
[2019-11-30 20:38] LABS: Influenza A virus by PCR Neg for Influ A (Neg); Influenza B virus by PCR Neg for Influ B (Neg)
[2019-11-30] MEDS ORDERED: NITROGLYCERIN 2% OINTMENT 30GM TUBE EXT STA (20:38)
[2019-11-30] MEDS ORDERED: FUROSEMIDE 40 MG/4 ML VIAL IV STA ×2 (20:38→22:12)
[2019-11-30 22:03] LABS: Appearance Urine Clear (Clear); Bacteria Urine Automated Negative (Negative); Bilirubin Urine Negative (Negative); Blood Urine Trace (Negative); Cast Urine Automated 0 /lpf (0-5); Color Urine Yellow; Epithelial Cell Urine Auto 0-5 /lpf (0-5); Glucose Urine UA Negative (Negative); Ketones Urine Negative (Negative); Leukocyte Esterase Urine Negative (Negative); Nitrite Urine Negative (Negative); Protein Urine 2+ (Negative); RBC Urine Automated 0-4 /hpf (0-4); Specific Gravity Urine 1.008 (1.000-1.030); Urobilinogen Urine Negative (Negative); WBC Urine Automated 0 /hpf (0-5); pH Urine 5.5 (4.5-7.5)
[2019-11-30 22:12] LABS: Partial Thromboplastin Ratio 0.9; Partial Thromboplastin Time 23.2 Seconds (21.0-31.0); Prothrombin Time 10.4 Seconds (9.0-12.0)
--- NOTE | 2019-11-30 22:30 | History & Physical Report ---
Date of Service November 30, 2019 Assessment & Plan (1) Acute respiratory failure with hypoxia and hypercapnia: Acute respiratory failure with hypoxia and hypercapnia/acute CHF exacerbation- Continue BiPAP, taper as clinically improves to nasal cannula. Increase Lasix to 40 mg IV now and every morning. Consult cardiology, Dr. Doherty aware Present on Admission?: Yes (2) Acute exacerbation of CHF (congestive heart failure): see above Present on Admission?: Yes (3) Left bundle branch block: stable Present on Admission?: Yes (4) Hyponatremia: Sodium 127 upon admission, due to hypervolemia. Should improve with IV furosemide. Repeat labs in a.m. Present on Admission?: Yes (5) CAD (coronary artery disease): CAD/hypertension/stented coronary arteries x3/cardiomyopathy- Continue amlodipine, aspirin, carvedilol, clopidogrel and lisinopril- Present on Admission?: Yes (6) Cardiomyopathy: Present on Admission?: Yes (7) Hypertension: See above Present on Admission?: Yes (8) Hyperlipidemia: Continue atorvastatin 80 mg daily Present on Admission?: Yes History of Present Illness Chief Complaint: The patient presents to the ED with complaint of the acute onset of SOB shortly after awakening this AM. Primary Care Provider: Carmen Viramontes PA-C The patient is a 59 yo male with PMH cardiomyopathy, LBBB, AI, Hypontremia, LINDSAY, NSTEMI, CAD, HTN, hyperlipidemia, PVD, and acute respiratory failure due to CHF exacerbation on 11/03/2019 requiring intubation. He presents to the ED with the Acute onset today of SOB/DAVIS and acute respiratory failure, somewhat improved on BIPAP in the ED. in the ED he also received Zosyn 4.5 g IV, DuoNeb treatment, Reglan IV, Nitro-Bid, and Lasix 20 mg IV. Allergies Allergy/AdvReac Type Severity Reaction Status Date / Time No Known Allergies Allergy Unknown Verified 11/30/19 20:31 Home Medications Home Medications Medication Instructions Recorded Confirmed Type aspirin 81 mg PO DAILY 11/03/19 11/30/19 History amlodipine 10 mg PO DAILY 11/30/19 11/30/19 History atorvastatin 80 mg PO PM 11/30/19 11/30/19 History carvedilol 6.25 mg PO BID 11/30/19 11/30/19 History clopidogrel [Plavix] 75 mg PO DAILY 11/30/19 11/30/19 History lisinopril 5 mg PO DAILY 11/30/19 11/30/19 History pantoprazole 40 mg PO DAILY 11/30/19 11/30/19 History Past Med/Surg History Medical History CAD (coronary artery disease) COPD (chronic obstructive pulmonary disease) Hyperlipidemia Hypertension No pertinent past medical history Peripheral vascular disease Surgical History No pertinent past surgical history Social History Preferred Language: Maori Communication Ability: Effective Despatch Clerk Required: No Beliefs That Will Affect Care: None Current Living Situation: Alone Current Living Situation Comment: unknown pt intubated and sedated. no family present Other Information That Helps Us Care for You: No Feels Safe at Home: Yes Safety Concerns: Feels Safe At This Time Smoking Status: Former smoker Cigarettes Per Day: 10-15 ; Smoking End Date: 11/2019 ; Hx Alcohol Use: Yes Alcohol type: beer Hx Substance Use: No Review of Systems Review of Systems: The patient denies chest pain, palpitations, cough, lower extremity swelling, sore throat, fevers, chills, sweats, vomiting, diarrhea , constipation, abdominal pain, pelvic pain, blood in urine or stool, dysuria, urinary frequency or urgency, lightheadedness, dizziness, headache, memory loss, loss of consciousness, rash, abnormal bruising or bleeding, imbalance, focal weakness, numbness or tingling in arms or legs, generalized arthralgias or myalgias, back or neck pain, or night sweats. The review of systems is otherwise negative other than for that already noted above, and at least 10 systems have been reviewed. Physical Exam Physical Exam: The patient is awake, alert and oriented 3, well developed and well nourished, wearing BIPAP, sitting upright in bed and in mild respiratory distress. HEENT--PERRL, EOMI, mucous membranes and oropharynx dry. Neck--supple. No JVD. No bruits. Thyroid normal, trachea midline, no adenopathy. Heart--normal S1 and S2. No murmurs, rubs or gallops. Lungs--coarse breath sounds bilaterally with wheezes. Mild respiratory distress, no accessory muscle use. Abdomen--normal bowel sounds and soft. Nontender. Nondistended. Extremities--no cyanosis or clubbing. 1+ bilateral pretibial pitting edema. Dermatologic--normal skin turgor, normal color, no abnormal lymph nodes, no rash. Neurologic--cranial nerves II through XII grossly intact. Rheumatologic--normal range of motion. Psychiatric--normal affect. Results & Data Vital Signs (Past 12 Hours) Vital Signs Pulse Pulse Resp BP Pulse Ox 11/30/19 22:00 16 113/64 99 11/30/19 21:50 22 98 11/30/19 21:40 23 100 11/30/19 21:30 22 125/72 97 11/30/19 21:10 13 94 11/30/19 21:01 22 94 11/30/19 21:00 23 142/62 H 94 11/30/19 20:50 26 H 96 11/30/19 20:48 94 11/30/19 20:40 18 87 L 11/30/19 20:30 22 168/85 H 91 11/30/19 20:20 28 H 98 11/30/19 20:19 88 33 H 96 11/30/19 20:10 24 100 11/30/19 20:01 29 H 100 11/30/19 20:00 93 H 32 H 181/88 H 99 11/30/19 19:58 101 H 35 H 98 11/30/19 19:53 101 H 35 H 98 11/30/19 19:50 107 H 31 H 94 11/30/19 19:41 99 H 26 H 96 11/30/19 19:39 100 H 34 H 176/96 H 95 11/30/19 19:30 105 H 36 H 168/74 H 86 L Laboratory Results Laboratory Results WBC 12.08 K/uL (4.8-10.8) H 11/30/19 20:06 RBC 3.52 M/uL (4.7-6.1) L 11/30/19 20:06 Hgb 11.2 g/dL (14.0-18.0) L 11/30/19 20:06 Hct 32.5 % (42-52) L 11/30/19 20:06 MCV 92.3 fL (80-100) 11/30/19 20:06 MCH 31.8 pg (25-34) 11/30/19 20:06 MCHC 34.5 g/dL (32-36) 11/30/19 20:06 RDW Std Deviation 44.8 fL (36.4-46.3) 11/30/19 20: RDW Coeff of Monika 13.4 % (11.5-14.5) 11/30/19 20: Plt Count 290 K/uL (130-400) 11/30/19 20:06 MPV 9.5 fL (7.4-10.4) 11/30/19 20:06 Immature Gran % (Auto) 0.4 % 11/30/19 20:06 Neut % (Auto) 63.3 % 11/30/19 20:06 Lymph % (Auto) 24.6 % 11/30/19 20:06 [place] % (Auto) 9.4 % 11/30/19 20:06 Eos % (Auto) 2.1 % 11/30/19 20:06 Baso % (Auto) 0.2 % 11/30/19 20:06 Immature Gran # (Auto) 0.05 K/uL (0.00-0.02) H 11/30/19 20:06 Neut # (Auto) 7.64 K/uL (1.4-6.5) H 11/30/19 20:06 Lymph # (Auto) 2.97 K/uL (1.2-3.4) 11/30/19 20:06 [place] # (Auto) 1.14 K/uL (0.11-0.59) H 11/30/19 20:06 Eos # (Auto) 0.25 K/uL (0-0.5) 11/30/19 20:06 Baso # (Auto) 0.03 K/uL (0-0.2) 11/30/19 20:06 PT 10.4 Seconds (9.0-12.0) 11/30/19 21:45 INR 1.0 (0.9-1.1) 11/30/19 21:45 APTT 23.2 Seconds (21.0-31.0) 11/30/19 21:45 PTT Ratio 0.9 11/30/19 21:45 VBG pH 7.28 (7.36-7.41) L 11/30/19 20:02 VBG pCO2 34 mmHg (38-50) L 11/30/19 20:02 VBG pO2 56 mmHg 11/30/19 20:02 VBG HCO3 16 mmol/L 11/30/19 20:02 VBG O2 Saturation 83.8 % 11/30/19 20:02 VBG Base Excess -10.2 mEq/L 11/30/19 20:02 Barometric Pressure 726.6 mm/Hg 11/30/19 20:02 Sodium 127 mmol/L (136-145) L 11/30/19 20:06 Potassium 4.3 mmol/L (3.5-5.1) 11/30/19 20:06 Chloride 96 mmol/L (98-107) L 11/30/19 20:06 Carbon Dioxide 15 mmol/L (21-32) L 11/30/19 20:06 Anion Gap 16.0 (3-11) H 11/30/19 20:06 BUN 25 mg/dl (7-18) H 11/30/19 20:06 Creatinine 2.05 mg/dl (0.6-1.4) H 11/30/19 20:06 Est Cr Clr Drug Dosing Not Reportable 11/30/19 20:06 Est GFR ( Amer) 39.4 11/30/19 20:06 Est GFR (Non-Af Amer) 34.0 11/30/19 20:06 BUN/Creatinine Ratio 12.2 (10-20) 11/30/19 20:06 Glucose 113 mg/dl (70-99) H 11/30/19 20:06 Lactate 1.2 mmol/L (0.4-2.0) 11/30/19 21:50 Calcium 8.9 mg/dl (8.5-10.1) 11/30/19 20:06 Magnesium 2.0 mg/dl (1.8-2.4) 11/30/19 23:07 Total Bilirubin 0.4 mg/dl (0.2-1) 11/30/19 20:06 AST 15 U/L (15-37) 11/30/19 20:06 ALT 13 U/L (12-78) 11/30/19 20:06 Alkaline Phosphatase 99 U/L (45-117) 11/30/19 20:06 Troponin I 0.097 ng/ml (0-0.045) H* 11/30/19 23:07 NT-Pro-B Natriuret Pep 6044 pg/ml (0-900) H 11/30/19 20:06 Total Protein 7.8 gm/dl (6.4-8.2) 11/30/19 20:06 Albumin 3.4 gm/dl (3.4-5.0) 11/30/19 20:06 Globulin 4.4 gm/dl (2.5-4.0) H 11/30/19 20:06 Albumin/Globulin Ratio 0.8 (0.9-2) L 11/30/19 20:06 Urine Color Yellow 11/30/19 21:49 Urine Appearance Clear (Clear) 11/30/19 21:49 Urine pH 5.5 (4.5-7.5) 11/30/19 21:49 Ur Specific [place] 1.008 (1.000-1.030) 11/30/19 21:49 Urine Protein 2+ (Negative) H 11/30/19 21:49 Urine Glucose (UA) Negative (Negative) 11/30/19 21:49 Urine Ketones Negative (Negative) 11/30/19 21:49 Urine Blood Trace (Negative) H 11/30/19 21:49 Urine Nitrite Negative (Negative) 11/30/19 21:49 Urine Bilirubin Negative (Negative) 11/30/19 21:49 Urine Urobilinogen Negative (Negative) 11/30/19 21:49 Ur Leukocyte Esterase Negative (Negative) 11/30/19 21:49 Urine WBC (Auto) 0 /hpf (0-5) 11/30/19 21:49 Urine RBC (Auto) 0-4 /hpf (0-4) 11/30/19 21:49 U Hyaline Cast (Auto) 0 /lpf (0-5) 11/30/19 21:49 U Epithel Cells (Auto) 0-5 /lpf (0-5) 11/30/19 21:49 Urine Bacteria (Auto) Negative (Negative) 11/30/19 21:49 Nasal Screen MRSA (PCR) Negative (Negative) 11/30/19 20:50 Influenza Type A (PCR) Neg for Influ A (Neg) 11/30/19 19:51 Influenza Type B (PCR) Neg for Influ B (Neg) 11/30/19 19:51 Diagnostic Findings [facility] [place], [place] [phone] XRay Report Patient: JULIAN ARGUETA Date: 11/30/19 MR#: [id number]: [address] Acct ID:[id number]: Date: 1960[facility] Zip: [place] [id number] Age: 59Location: ED Sex: M Room/Bed: Att Phy:Diagnosis: SOB Tyesha Phy: Carmen Viramontes PA-CService Date: 11/30/19 Fam Phy:Interpreting Phy: John Horton Admit Phy: Ordering Phy: Gopal Baez M.D. cc: ~ XR chest 1V portable HISTORY: 59 years-old Male Dyspnea acute shortness of breath COMPARISON: Chest radiograph 11/03/2019, CTA chest 11/03/2019 TECHNIQUE: Portable AP view of the chest FINDINGS: Cardiac silhouette is enlarged, unchanged. Calcified plaque of the thoracic aortic arch. Pulmonary vascular congestion with suggestion of mild pulmonary edema. No pneumothorax. Small pleural effusions with right greater than left bibasilar opacities. Emphysema with chronic fibrotic changes. Degenerative changes of the shoulders and spine. IMPRESSION: 1. Cardiomegaly with pulmonary edema and small pleural effusions. 2. Right greater than left bibasilar opacities suggest probable atelectasis. 3. Emphysema. ACT 112: Negative or not required by law. The above report was generated using voice recognition software. It may contain grammatical, syntax or spelling errors. Electronically signed by: Ranulfo Horton M.D. 11/30/2019 7:59 PM Dictated: 11/30/191956 Transcribed: 11/30/191956 Code Status & VTE Plan Code Status FULL CODE VTE Prophylaxis Plan VTE Prophylaxis will be ordered: Yes PG Care Time/CCT Total # of Minutes Spent Total Time Spent with Patient: Total time spent is greater than 50% in coordination of care (as documented) at patient's floor/unit and/or counseling patient: Coding Level of Care Code 35475 Initial Inpt Care Lvl 3 Diagnoses Acute respiratory failure with hypoxia and hypercapnia J96.01; J96.02 Acute exacerbation of CHF (congestive heart failure) I50.9 Left bundle branch block I44.7 Hyponatremia E87.1 CAD (coronary artery disease) I25.10 Cardiomyopathy I42.9 Hypertension I10 Hyperlipidemia E78.5
[2019-11-30] MEDS ORDERED: ALUMINUM/MAGNESIUM SUSP 30 ML UDC PO PRN (22:50)
[2019-11-30] MEDS ORDERED: ONDANSETRON INJ 2 MG/ML 2 ML VIAL IV PRN (22:50)
[2019-11-30] MEDS ORDERED: MAGNESIUM HYDROXIDE SUSP 30 ML UDC PO PRN (22:50)
[2019-11-30] MEDS ORDERED: ACETAMINOPHEN 325 MG TAB PO PRN (22:50)
[2019-11-30] MEDS ORDERED: PATIENT'S HEIGHT AND/OR WEIGHT NEEDED SCH (23:15)
[2019-11-30 23:56] LABS: Troponin I 0.097 ng/ml (0-0.045)
[2019-12-01] MEDS: carvediloL 6.25 MG TAB PO SCH ×3 (00:14→20:26)
--- NOTE | 2019-12-01 00:52 | Emergency Department Note ---
Entered by Binta Gómez acting as a scribe for Gopal Baez MD History of Present Illness General Chief complaint: Shortness of Breath/Dyspnea Stated complaint: SOB Time Seen by Provider: 11/30/19 19:35 Source: patient History of Present Illness Onset (ago): minute(s) 30 Location: chest Pain Consistency: + constant Quality: + other (shortness of breath) Relieved By: + other (supplemental oxygen) Associated symptoms: + denies other symptoms (denies abdominal pain), + chest pain and + shortness of breath; no cough and no fever/chills Treatments prior to arrival: aspirin and other (Plavix) The patient is a 59 year old white male w/ PMHx CAD, COPD, and hypertension, who presents to the ED w/ CC of shortness of breath beginning earlier today and worsening about a half hour ago. The patient has been taking aspirin and Plavix. He notes that his shortness of breath worsened about a half hour ago. He comp lains of some chest pain. The patient denies cough, fever, abdominal pain, swelling in legs, and recent travel. The patient notes that his symptoms improve with supplemental oxygen, and he states that he does not use it at home. Home Medications Home Medications Medication Instructions Recorded Confirmed Type aspirin 81 mg PO DAILY 11/03/19 11/30/19 History amlodipine 10 mg PO DAILY 11/30/19 11/30/19 History atorvastatin 80 mg PO PM 11/30/19 11/30/19 History carvedilol 6.25 mg PO BID 11/30/19 11/30/19 History clopidogrel [Plavix] 75 mg PO DAILY 11/30/19 11/30/19 History lisinopril 5 mg PO DAILY 11/30/19 11/30/19 History pantoprazole 40 mg PO DAILY 11/30/19 11/30/19 History Allergies Allergy/AdvReac Type Severity Reaction Status Date / Time No Known Allergies Allergy Unknown Verified 11/30/19 20:31 Past Med/Surg History Medical History CAD (coronary artery disease) COPD (chronic obstructive pulmonary disease) Hyperlipidemia Hypertension No pertinent past medical history Peripheral vascular disease Surgical History No pertinent past surgical history Social History Preferred Language: Gambian Communication Ability: Effective Supervisor Last Model Department Required: No Beliefs That Will Affect Care: None Current Living Situation: Alone Current Living Situation Comment: unknown pt intubated and sedated. no family present Other Information That Helps Us Care for You: No Feels Safe at Home: Yes Safety Concerns: Feels Safe At This Time Smoking Status: Former smoker Cigarettes Per Day: 10-15 ; Smoking End Date: 11/2019 ; Hx Alcohol Use: Yes Alcohol type: beer Hx Substance Use: No Review of Systems See HPI for pertinent positives & negatives. and A total of 10 systems reviewed and were otherwise negative Physical Exam Vital Signs Vital Signs - 24 hr 11/30/19 19:30 11/30/19 19:39 11/30/19 19:41 Pulse Rate 105 H 100 H 99 H Pulse Rate [Finger] Pulse Rate from SpO2 Sensor Respiratory Rate 36 H 34 H 26 H Respiratory Effort / Characteristics Spontaneous Labored Short of Breath Respiratory Depth Shallow Respiratory Pattern Regular Blood Pressure 168/74 H 176/96 H Blood Pressure Mean 105 129 Pulse Oximetry 86 L 95 96 Oxygen Delivery Method Room Air Oxygen Flow Rate 6 Fraction of Inspired Oxygen Sepsis Recent Fever Within 48 Hours No Sepsis Action Taken by Nursing No Action Required Oxygen Flow Rate - Titration 15 Pulse Oximetry Post Tiitration 97 11/30/19 19:50 11/30/19 19:53 11/30/19 19:58 Pulse Rate 107 H 101 H Pulse Rate [Finger] 101 H Pulse Rate from SpO2 Sensor Respiratory Rate 31 H 35 H 35 H Respiratory Effort / Characteristics Spontaneous Short of Breath Spontaneous Short of Breath Respiratory Depth Deep Respiratory Pattern Tachypnea Blood Pressure Blood Pressure Mean Pulse Oximetry 94 98 98 Oxygen Delivery Method BiPAP Oxygen Flow Rate Fraction of Inspired Oxygen 40 40 Sepsis Recent Fever Within 48 Hours Sepsis Action Taken by Nursing Oxygen Flow Rate - Titration Pulse Oximetry Post Tiitration 11/30/19 20:00 11/30/19 20:01 11/30/19 20:10 Pulse Rate 93 H Pulse Rate [Finger] Pulse Rate from SpO2 Sensor 90 93 H Respiratory Rate 32 H 29 H 24 Respiratory Effort / Characteristics Respiratory Depth Respiratory Pattern Blood Pressure 181/88 H Blood Pressure Mean 132 Pulse Oximetry 99 100 100 Oxygen Delivery Method BiPAP Oxygen Flow Rate Fraction of Inspired Oxygen 40 Sepsis Recent Fever Within 48 Hours Sepsis Action Taken by Nursing Oxygen Flow Rate - Titration Pulse Oximetry Post Tiitration 11/30/19 20:19 11/30/19 20:20 11/30/19 20:29 Pulse Rate 88 Pulse Rate [Finger] Pulse Rate from SpO2 Sensor 90 Respiratory Rate 33 H 28 H Respiratory Effort / Characteristics Spontaneous Short of Breath Respiratory Depth Deep Respiratory Pattern Tachypnea Blood Pressure Blood Pressure Mean Pulse Oximetry 96 98 94 Oxygen Delivery Method BiPAP Oxygen Flow Rate Fraction of Inspired Oxygen 30 40 21 Sepsis Recent Fever Within 48 Hours Sepsis Action Taken by Nursing Oxygen Flow Rate - Titration Pulse Oximetry Post Tiitration 11/30/19 20:30 11/30/19 20:40 11/30/19 20:48 Pulse Rate Pulse Rate [Finger] Pulse Rate from SpO2 Sensor 98 H 95 H Respiratory Rate 22 18 Respiratory Effort / Characteristics Respiratory Depth Respiratory Pattern Blood Pressure 168/85 H Blood Pressure Mean 106 Pulse Oximetry 91 87 L 94 Oxygen Delivery Method BiPAP BiPAP Oxygen Flow Rate Fraction of Inspired Oxygen 20 20 28 Sepsis Recent Fever Within 48 Hours Sepsis Action Taken by Nursing Oxygen Flow Rate - Titration Pulse Oximetry Post Tiitration 11/30/19 20:50 11/30/19 21:00 11/30/19 21:01 Pulse Rate Pulse Rate [Finger] Pulse Rate from SpO2 Sensor 92 H 78 73 Respiratory Rate 26 H 23 22 Respiratory Effort / Characteristics Respiratory Depth Respiratory Pattern Blood Pressure 142/62 H Blood Pressure Mean 82 Pulse Oximetry 96 94 94 Oxygen Delivery Method BiPAP BiPAP BiPAP Oxygen Flow Rate Fraction of Inspired Oxygen 28 28 28 Sepsis Recent Fever Within 48 Hours Sepsis Action Taken by Nursing Oxygen Flow Rate - Titration Pulse Oximetry Post Tiitration 11/30/19 21:10 11/30/19 21:20 11/30/19 21:30 Pulse Rate Pulse Rate [Finger] Pulse Rate from SpO2 Sensor 75 71 Respiratory Rate 13 22 Respiratory Effort / Characteristics Respiratory Depth Respiratory Pattern Blood Pressure 125/72 Blood Pressure Mean 99 Pulse Oximetry 94 98 97 Oxygen Delivery Method BiPAP BiPAP Oxygen Flow Rate Fraction of Inspired Oxygen 28 40 28 Sepsis Recent Fever Within 48 Hours Sepsis Action Taken by Nursing Oxygen Flow Rate - Titration Pulse Oximetry Post Tiitration 11/30/19 21:40 11/30/19 21:50 11/30/19 22:00 Pulse Rate Pulse Rate [Finger] Pulse Rate from SpO2 Sensor 69 66 63 Respiratory Rate 23 22 16 Respiratory Effort / Characteristics Respiratory Depth Respiratory Pattern Blood Pressure 113/64 Blood Pressure Mean 72 Pulse Oximetry 100 98 99 Oxygen Delivery Method BiPAP BiPAP BiPAP Oxygen Flow Rate Fraction of Inspired Oxygen 40 40 Sepsis Recent Fever Within 48 Hours Sepsis Action Taken by Nursing Oxygen Flow Rate - Titration Pulse Oximetry Post Tiitration GENERAL: Severe distress. Tachypneic. EYE EXAM: Normal conjunctiva. PERRL, no anisocoria and EOM's grossly intact w/o pain. OROPHARYNX: Moist mucous membranes. Grossly normal dentition. NECK: Supple, no nuchal rigidity. No signs of meningismus. LUNGS: Tachypnea noted. Coarse breath sounds, more to the right base. HEART: NSR, no MRG. ABDOMEN: Well healed surgical scar. Abdomen soft, non-tender, no masses, no rebound or guarding. BACK: No CVA TTP. SKIN: No rashes and no bruising. UPPER EXTREMITIES: Upper extremities are grossly normal. LOWER EXTREMITIES: No pitting edema. No calf pain. Extremities are warm and soft no crepitus. NEURO EXAM: A&O x3, cranial nerves II-XII grossly intact, normal speech, moves all 4 extremities on command w/o issue. Course Course 1937: Past medical records reviewed. The patient was evaluated in room A04B. A complete history and physical exam was performed. 2019: I rechecked on the patient, who looks somewhat better. He is now on Bipap. 2112: I spoke to Dr. Thomas, [facility] hospitalist, regarding the patient. He recommended talking to cardiology since the patient has had 3 stents. 2114: I spoke to Dr. Doherty, [facility] corrections officer, who recommended that blood pressure management and current management is appropriate. He states that if there was a true cardiac stent issue, the patient would most likely have chest pain as well as EKG changes. 2130: After speaking with Dr. Thomas again, he agrees to take over care of the patient. The patient is agreeable to staying in the hospital and understands the treatment plan. The patient will be evaluated for further treatment. Administered Medications Carvedilol (Coreg) 6.25 mg PO BID GILBERT Stop: 12/30/19 22:49 Last Admin: 12/01/19 00:14 Dose: Not Given Documented by: [id number] Discontinued Medications Albuterol (Duoneb) 6 ml NEB NOW STA Stop: 11/30/19 19:46 Last Admin: 11/30/19 19:58 Dose: 6 ml Documented by: [id number] Furosemide (Lasix) 20 mg IV NOW STA Stop: 11/30/19 20:39 Last Admin: 11/30/19 20:47 Dose: 20 mg Documented by: [id number] Furosemide (Lasix) 20 mg IV NOW STA Stop: 11/30/19 22:13 Last Admin: 11/30/19 22:15 Dose: 20 mg Documented by: [id number] Piperacillin Sod/Tazobactam Sod (Zosyn) 4.5 gm in 120 mls @ 240 mls/hr IV NOW ONE Stop: 11/30/19 20:14 Last Infusion: 11/30/19 20:53 Dose: 0 mls/hr Documented by: [id number] Admin: 11/30/19 20:13 Dose: 240 mls/hr Documented by: [id number] Metoclopramide HCl (Reglan) 10 mg IV NOW STA Stop: 11/30/19 19:58 Last Admin: 11/30/19 20:13 Dose: 10 mg Documented by: [id number] Miscellaneous (Patient's Height And/Or Weight Needed) 1 ea N/A Q2H GILBERT Stop: 12/30/19 23:14 Last Admin: 12/01/19 00:36 Dose: Not Given Documented by: [id number] Nitroglycerin (Nitro-Bid 2%) 1 inch EXT NOW STA Stop: 11/30/19 20:39 Last Admin: 11/30/19 20:46 Dose: 1 inch Documented by: [id number] Critical Care Time Critical Care Time: Yes Total Critical Care Time: 95 I have personally spent 95 minutes of critical care time in the direct management of this patient. This includes bedside care, interpretation of diagnostic studies, and testing, discussion with consultants, patient, and family members, and other required patient management activities. This 95 minutes is in excess of all separately billable procedures. Medical Decision Making Differential Diagnosis Differential diagnosis includes: infections, reactive airway disease, pneumonia, pneumothorax, COPD, CHF, cardiac ischemia, pulmonary embolism, musculoskeletal, gastrointestinal, as well as others were entertained. Medical Records Attestation: I reviewed the patient's medical records. Home Medications Current Medication List: was personally reviewed by me Laboratory Data Attestation: I reviewed the patient's lab results. Result diagrams: 11/30/19 20:06 11/30/19 20:06 Lab Results 11/30/19 11/30/19 11/30/19 Range/Units 19:51 20:02 20:02 WBC (4.8-10.8) K/uL RBC (4.7-6.1) M/uL Hgb (14.0-18.0) g/dL Hct (42-52) % MCV (80-100) fL MCH (25-34) pg MCHC (32-36) g/dL RDW Std Deviation (36.4-46.3) fL RDW Coeff of Monika (11.5-14.5) % Plt Count (130-400) K/uL MPV (7.4-10.4) fL Immature Gran % (Auto) % Neut % (Auto) % Lymph % (Auto) % Callahan % (Auto) % Eos % (Auto) % Baso % (Auto) % Immature Gran # (Auto) (0.00-0.02) K/uL Neut # (Auto) (1.4-6.5) K/uL Lymph # (Auto) (1.2-3.4) K/uL Callahan # (Auto) (0.11-0.59) K/uL Eos # (Auto) (0-0.5) K/uL Baso # (Auto) (0-0.2) K/uL PT INR APTT PTT Ratio VBG pH 7.28 L (7.36-7.41) VBG pCO2 34 L (38-50) mmHg VBG pO2 56 mmHg VBG HCO3 16 mmol/L VBG O2 Saturation 83.8 % VBG Base Excess -10.2 mEq/L Barometric Pressure 726.6 mm/Hg Sodium (136-145) mmol/L Potassium (3.5-5.1) mmol/L Chloride (98-107) mmol/L Carbon Dioxide (21-32) mmol/L Anion Gap (3-11) BUN (7-18) mg/dl Creatinine (0.6-1.4) mg/dl Est Cr Clr Drug Dosing Est GFR ( Amer) Est GFR (Non-Af Amer) BUN/Creatinine Ratio (10-20) Glucose (70-99) mg/dl Lactate 3.7 H* (0.4-2.0) mmol/L Calcium (8.5-10.1) mg/dl Magnesium (1.8-2.4) mg/dl Total Bilirubin (0.2-1) mg/dl AST (15-37) U/L ALT (12-78) U/L Alkaline Phosphatase (45-117) U/L Troponin I (0-0.045) ng/ml NT-Pro-B Natriuret Pep (0-900) pg/ml Total Protein (6.4-8.2) gm/dl Albumin (3.4-5.0) gm/dl Globulin (2.5-4.0) gm/dl Albumin/Globulin Ratio (0.9-2) Urine Color Urine Appearance (Clear) Urine pH (4.5-7.5) Ur Specific [place] (1.000-1.030) Urine Protein (Negative) Urine Glucose (UA) (Negative) Urine Ketones (Negative) Urine Blood (Negative) Urine Nitrite (Negative) Urine Bilirubin (Negative) Urine Urobilinogen (Negative) Ur Leukocyte Esterase (Negative) Urine WBC (Auto) (0-5) /hpf Urine RBC (Auto) (0-4) /hpf U Hyaline Cast (Auto) (0-5) /lpf U Epithel Cells (Auto) (0-5) /lpf Urine Bacteria (Auto) (Negative) Nasal Screen MRSA (PCR) (Negative) Influenza Type A (PCR) Neg for Influ A (Neg) Influenza Type B (PCR) Neg for Influ B (Neg) 11/30/19 11/30/19 11/30/19 Range/Units 20:06 20:06 20:06 WBC 12.08 H (4.8-10.8) K/uL RBC 3.52 L (4.7-6.1) M/uL Hgb 11.2 L (14.0-18.0) g/dL Hct 32.5 L (42-52) % MCV 92.3 (80-100) fL MCH 31.8 (25-34) pg MCHC 34.5 (32-36) g/dL RDW Std Deviation 44.8 (36.4-46.3) fL RDW Coeff of Monika 13.4 (11.5-14.5) % Plt Count 290 (130-400) K/uL MPV 9.5 (7.4-10.4) fL Immature Gran % (Auto) 0.4 % Neut % (Auto) 63.3 % Lymph % (Auto) 24.6 % Callahan % (Auto) 9.4 % Eos % (Auto) 2.1 % Baso % (Auto) 0.2 % Immature Gran # (Auto) 0.05 H (0.00-0.02) K/uL Neut # (Auto) 7.64 H (1.4-6.5) K/uL Lymph # (Auto) 2.97 (1.2-3.4) K/uL Callahan # (Auto) 1.14 H (0.11-0.59) K/uL Eos # (Auto) 0.25 (0-0.5) K/uL Baso # (Auto) 0.03 (0-0.2) K/uL PT Cancelled INR Cancelled APTT Cancelled PTT Ratio Cancelled VBG pH (7.36-7.41) VBG pCO2 (38-50) mmHg VBG pO2 mmHg VBG HCO3 mmol/L VBG O2 Saturation % VBG Base Excess mEq/L Barometric Pressure mm/Hg Sodium 127 L (136-145) mmol/L Potassium 4.3 (3.5-5.1) mmol/L Chloride 96 L (98-107) mmol/L Carbon Dioxide 15 L (21-32) mmol/L Anion Gap 16.0 H (3-11) BUN 25 H (7-18) mg/dl Creatinine 2.05 H (0.6-1.4) mg/dl Est Cr Clr Drug Dosing Not Reportable Est GFR ( Amer) 39.4 Est GFR (Non-Af Amer) 34.0 BUN/Creatinine Ratio 12.2 (10-20) Glucose 113 H (70-99) mg/dl Lactate (0.4-2.0) mmol/L Calcium 8.9 (8.5-10.1) mg/dl Magnesium 2.1 (1.8-2.4) mg/dl Total Bilirubin 0.4 (0.2-1) mg/dl AST 15 (15-37) U/L ALT 13 (12-78) U/L Alkaline Phosphatase 99 (45-117) U/L Troponin I 0.033 (0-0.045) ng/ml NT-Pro-B Natriuret Pep 6044 H (0-900) pg/ml Total Protein 7.8 (6.4-8.2) gm/dl Albumin 3.4 (3.4-5.0) gm/dl Globulin 4.4 H (2.5-4.0) gm/dl Albumin/Globulin Ratio 0.8 L (0.9-2) Urine Color Urine Appearance (Clear) Urine pH (4.5-7.5) Ur Specific [place] (1.000-1.030) Urine Protein (Negative) Urine Glucose (UA) (Negative) Urine Ketones (Negative) Urine Blood (Negative) Urine Nitrite (Negative) Urine Bilirubin (Negative) Urine Urobilinogen (Negative) Ur Leukocyte Esterase (Negative) Urine WBC (Auto) (0-5) /hpf Urine RBC (Auto) (0-4) /hpf U Hyaline Cast (Auto) (0-5) /lpf U Epithel Cells (Auto) (0-5) /lpf Urine Bacteria (Auto) (Negative) Nasal Screen MRSA (PCR) (Negative) Influenza Type A (PCR) (Neg) Influenza Type B (PCR) (Neg) 11/30/19 11/30/19 11/30/19 Range/Units 20:50 21:45 21:49 WBC (4.8-10.8) K/uL RBC (4.7-6.1) M/uL Hgb (14.0-18.0) g/dL Hct (42-52) % MCV (80-100) fL MCH (25-34) pg MCHC (32-36) g/dL RDW Std Deviation (36.4-46.3) fL RDW Coeff of Monika (11.5-14.5) % Plt Count (130-400) K/uL MPV (7.4-10.4) fL Immature Gran % (Auto) % Neut % (Auto) % Lymph % (Auto) % Callahan % (Auto) % Eos % (Auto) % Baso % (Auto) % Immature Gran # (Auto) (0.00-0.02) K/uL Neut # (Auto) (1.4-6.5) K/uL Lymph # (Auto) (1.2-3.4) K/uL Callahan # (Auto) (0.11-0.59) K/uL Eos # (Auto) (0-0.5) K/uL Baso # (Auto) (0-0.2) K/uL PT 10.4 INR 1.0 APTT 23.2 PTT Ratio 0.9 VBG pH (7.36-7.41) VBG pCO2 (38-50) mmHg VBG pO2 mmHg VBG HCO3 mmol/L VBG O2 Saturation % VBG Base Excess mEq/L Barometric Pressure mm/Hg Sodium (136-145) mmol/L Potassium (3.5-5.1) mmol/L Chloride (98-107) mmol/L Carbon Dioxide (21-32) mmol/L Anion Gap (3-11) BUN (7-18) mg/dl Creatinine (0.6-1.4) mg/dl Est Cr Clr Drug Dosing Est GFR ( Amer) Est GFR (Non-Af Amer) BUN/Creatinine Ratio (10-20) Glucose (70-99) mg/dl Lactate (0.4-2.0) mmol/L Calcium (8.5-10.1) mg/dl Magnesium (1.8-2.4) mg/dl Total Bilirubin (0.2-1) mg/dl AST (15-37) U/L ALT (12-78) U/L Alkaline Phosphatase (45-117) U/L Troponin I (0-0.045) ng/ml NT-Pro-B Natriuret Pep (0-900) pg/ml Total Protein (6.4-8.2) gm/dl Albumin (3.4-5.0) gm/dl Globulin (2.5-4.0) gm/dl Albumin/Globulin Ratio (0.9-2) Urine Color Yellow Urine Appearance Clear (Clear) Urine pH 5.5 (4.5-7.5) Ur Specific [place] 1.008 (1.000-1.030) Urine Protein 2+ H (Negative) Urine Glucose (UA) Negative (Negative) Urine Ketones Negative (Negative) Urine Blood Trace H (Negative) Urine Nitrite Negative (Negative) Urine Bilirubin Negative (Negative) Urine Urobilinogen Negative (Negative) Ur Leukocyte Esterase Negative (Negative) Urine WBC (Auto) 0 (0-5) /hpf Urine RBC (Auto) 0-4 (0-4) /hpf U Hyaline Cast (Auto) 0 (0-5) /lpf U Epithel Cells (Auto) 0-5 (0-5) /lpf Urine Bacteria (Auto) Negative (Negative) Nasal Screen MRSA (PCR) Negative (Negative) Influenza Type A (PCR) (Neg) Influenza Type B (PCR) (Neg) 11/30/19 Range/Units 21:50 WBC (4.8-10.8) K/uL RBC (4.7-6.1) M/uL Hgb (14.0-18.0) g/dL Hct (42-52) % MCV (80-100) fL MCH (25-34) pg MCHC (32-36) g/dL RDW Std Deviation (36.4-46.3) fL RDW Coeff of Monika (11.5-14.5) % Plt Count (130-400) K/uL MPV (7.4-10.4) fL Immature Gran % (Auto) % Neut % (Auto) % Lymph % (Auto) % Callahan % (Auto) % Eos % (Auto) % Baso % (Auto) % Immature Gran # (Auto) (0.00-0.02) K/uL Neut # (Auto) (1.4-6.5) K/uL Lymph # (Auto) (1.2-3.4) K/uL Callahan # (Auto) (0.11-0.59) K/uL Eos # (Auto) (0-0.5) K/uL Baso # (Auto) (0-0.2) K/uL PT INR APTT PTT Ratio VBG pH (7.36-7.41) VBG pCO2 (38-50) mmHg VBG pO2 mmHg VBG HCO3 mmol/L VBG O2 Saturation % VBG Base Excess mEq/L Barometric Pressure mm/Hg Sodium (136-145) mmol/L Potassium (3.5-5.1) mmol/L Chloride (98-107) mmol/L Carbon Dioxide (21-32) mmol/L Anion Gap (3-11) BUN (7-18) mg/dl Creatinine (0.6-1.4) mg/dl Est Cr Clr Drug Dosing Est GFR ( Amer) Est GFR (Non-Af Amer) BUN/Creatinine Ratio (10-20) Glucose (70-99) mg/dl Lactate 1.2 (0.4-2.0) mmol/L Calcium (8.5-10.1) mg/dl Magnesium (1.8-2.4) mg/dl Total Bilirubin (0.2-1) mg/dl AST (15-37) U/L ALT (12-78) U/L Alkaline Phosphatase (45-117) U/L Troponin I (0-0.045) ng/ml NT-Pro-B Natriuret Pep (0-900) pg/ml Total Protein (6.4-8.2) gm/dl Albumin (3.4-5.0) gm/dl Globulin (2.5-4.0) gm/dl Albumin/Globulin Ratio (0.9-2) Urine Color Urine Appearance (Clear) Urine pH (4.5-7.5) Ur Specific [place] (1.000-1.030) Urine Protein (Negative) Urine Glucose (UA) (Negative) Urine Ketones (Negative) Urine Blood (Negative) Urine Nitrite (Negative) Urine Bilirubin (Negative) Urine Urobilinogen (Negative) Ur Leukocyte Esterase (Negative) Urine WBC (Auto) (0-5) /hpf Urine RBC (Auto) (0-4) /hpf U Hyaline Cast (Auto) (0-5) /lpf U Epithel Cells (Auto) (0-5) /lpf Urine Bacteria (Auto) (Negative) Nasal Screen MRSA (PCR) (Negative) Influenza Type A (PCR) (Neg) Influenza Type B (PCR) (Neg) Imaging Data Radiologist's Impression: Radiology results as stated below per my review and the radiologist's interpretation: XR chest 1V portable HISTORY: 59 years-old Male Dyspnea acute shortness of breath COMPARISON: Chest radiograph 11/03/2019, CTA chest 11/03/2019 TECHNIQUE: Portable AP view of the chest FINDINGS: Cardiac silhouette is enlarged, unchanged. Calcified plaque of the thoracic aortic arch. Pulmonary vascular congestion with suggestion of mild pulmonary edema. No pneumothorax. Small pleural effusions with right greater than left bibasilar opacities. Emphysema with chronic fibrotic changes. Degenerative changes of the shoulders and spine. IMPRESSION: 1. Cardiomegaly with pulmonary edema and small pleural effusions. 2. Right greater than left bibasilar opacities suggest probable atelectasis. 3. Emphysema. ACT 112: Negative or not required by law. The above report was generated using voice recognition software. It may contain grammatical, syntax or spelling errors. Electronically signed by: Ranulfo Horton M.D. 11/30/2019 7:59 PM ECG Data Attestation: I personally reviewed and interpreted this ECG as follows: Indication: + SOB/dyspnea Rate (beats per minute): 103 Rhythm: + sinus tachycardia ECG Intervals/blocks: + Left bundle branch block ECG Findings: + Other (wide QRS) Comparison ECG Date: from (11/03/19) Change: the following changes noted (Rate is faster. LBBB is old. Mims un changed. Q waves unchanged. ) Blood Pressure Blood Pressure Findings: Elevated blood pressure Blood Pressure Disposition: further management by hospitalist JUDAH Sharp The patient is a 59 year old white male w/ PMHx CAD, COPD, and hypertension, who presents to the ED w/ CC of shortness of breath beginning earlier today and worsening about a half hour ago. Patient was seen and evaluated the bedside. The patient was in severe respiratory distress and I was concerned about the possibility of the patient requiring intubation. The patient was immediately placed on a nonrebreather. T he patient was subsequently placed on BiPAP at the bedside after being called. Patient did have some coarse breath sounds worse on the right side. The patient did have a chest x-ray blood work blood and urine cultures and the patient was ordered Zosyn given the concern for possible chest infection. Patient does relate he had recently did have LAD stents placed. The patient denies any chest pains. The patient does have mildly elevated heart rate as well. The patient does have baseline CKD and hyponatremia. Troponin is not elevated but BNP is. The patient's chest x-ray does show pulmonary edema. MRSA swab was ordered. The patient was given Zosyn. The patient is much improved after the nitro, Lasix, and BiPAP. I did speak the on-call corrections officer who recommended the same treatment given the circumstances. I did speak the on-call hospitalist agreed to further evaluate treat the patient. Patient was subsequently made to the medicine service. Impression & Plan Acute respiratory failure with hypoxia, Hypertensive crisis, Volume overload Discharge Plan Visit Data *Final* Discharge Date/Time: 11/30/19 22:26 Chief Complaint: Shortness of Breath/Dyspnea Stated Complaint: SOB ED Provider: Gopal Baez Discharge Problem: Acute respiratory failure with hypoxia, Hypertensive crisis, Volume overload Patient Disposition: Admitted As Inpatient Discharge Instructions Interventions: ED Discharge Assessment Last Done: 11/30/19 22:26 Discharge Problem: Volume overload Qualifiers: Hypervolemia type: unspecified Qualified Code(s): E87.70 - Fluid overload, unspecified The scribe's documentation has been prepared under my direction and personally reviewed by me in its entirety. I confirm that the note above accurately reflects all work, treatment, procedures, and medical decision making performed by me.
[2019-12-01] MEDS: PIPERACILLIN/TAZOBACTAM 3.375 GM in DEXTROSE 5% 100 ML IV SCH ×3 (01:59→17:21)
[2019-12-01] MEDS: NITROGLYCERIN 2% OINTMENT 30GM TUBE EXT SCH ×3 (04:50→16:35)
[2019-12-01 07:27] LABS: Basophils # (auto) 0.03 K/uL (0-0.2); Basophils % (auto) 0.5 %; Eosinophils # (auto) 0.09 K/uL (0-0.5); Eosinophils % (auto) 1.6 %; Hematocrit (blood only) 26.3 % (42-52); Hemoglobin 9.1 g/dL (14.0-18.0); Immature Granulocytes # (auto) 0.01 K/uL (0.00-0.02); Immature Granulocytes % (auto) 0.2 %; Lymphocytes # (auto) 1.32 K/uL (1.2-3.4); Lymphocytes % (auto) 23.3 %; Mean Corpuscular Hemoglobin 31.5 pg (25-34); Mean Corpuscular Hgb Conc 34.6 g/dL (32-36); Mean Platelet Volume 9.2 fL (7.4-10.4); Monocytes # (auto) 0.72 K/uL (0.11-0.59); Monocytes % (auto) 12.7 %; Neutrophils % (auto) 61.7 %; Platelet Count 214 K/uL (130-400); RDW Coefficient of Variation 13.3 % (11.5-14.5); RDW Standard Deviation 44.1 fL (36.4-46.3); Red Blood Count 2.89 M/uL (4.7-6.1); White Blood Count 5.67 K/uL (4.8-10.8)
[2019-12-01 07:40] LABS: Prothrombin Time 10.7 Seconds (9.0-12.0)
[2019-12-01 07:48] LABS: Albumin Level 2.8 gm/dl (3.4-5.0); BUN Creatinine Ratio 11.2 (10-20); Calcium 8.6 mg/dl (8.5-10.1); Creatinine Clr Calc Pharmacy 29.9 ml/min; Est GFR (African American) 33.4; Est GFR (Non-African American) 28.8; Potassium 4.3 mmol/L (3.5-5.1)
[2019-12-01 07:51] LABS: Albumin Globulin Ratio 0.8 (0.9-2); Bilirubin,Total 0.6 mg/dl (0.2-1); Globulin 3.7 gm/dl (2.5-4.0); Total Protein 6.5 gm/dl (6.4-8.2)
[2019-12-01] MEDS: PANTOprazole 40 MG TAB PO SCH (08:22)
[2019-12-01] MEDS: AMLODIPINE BESYLATE 5 MG TAB PO SCH (08:22)
[2019-12-01] MEDS: CLOPIDOGREL BISULFATE 75 MG TAB PO SCH (08:22)
[2019-12-01] MEDS: ASPIRIN 81 MG ECTAB PO SCH (08:23)
[2019-12-01] MEDS ORDERED: lisinopriL 5 MG TAB PO SCH (09:00)
[2019-12-01 12:21] LABS: iSTAT Arterial Blood Gas pCO2 27 mmHg (35-46); iSTAT Arterial Blood Gas pH 7.41 (7.35-7.45); iSTAT Arterial Blood Gas pO2 59 mmHg (80-95); iSTAT Carbon Dioxide 18 mmol/L (24-31); iSTAT Hematocrit 30 % (42-52); iSTAT Hemoglobin 10.2 g/dl (14.0-18.0); iSTAT Potassium 4.8 mmol/L (3.3-5.0); iSTAT Sodium 125 mmol/L (135-144)
[2019-12-01 12:22] LABS: iSTAT Arterial Blood Gas HCO3 17 meg/L (19-24); iSTAT Sample Type Arterial
--- NOTE | 2019-12-01 12:23 | Cardiology Consultation ---
Date of Consultation December 01, 2019 Assessment & Plan (1) Cardiomyopathy: (2) Left bundle branch block: (3) Aortic regurgitation: (4) CAD (coronary artery disease): (5) Hypertension: (6) Acute exacerbation of CHF (congestive heart failure): 1. Decompensated congestive heart failure: The patient presented with pulmonary edema. He seems to respond well to the therapies described above. The etiology for decompensation is unclear. He certainly follows a high sodium diet, but no change recently. His blood pressures were also elevated at the time of admission which could have contributed. I do not think this was likely related to ischemia. His dyspnea seem to precede any chest pain that he had. His biomarkers are not significantly elevated. No evidence of an arrhythmia causes decompensation. Seems to have diuresed quite well and respond well clinically. He still has an element of pulmonary vascular congestion I would advocate additional doses of diuretic. He may benefit from being placed on a daily dose of diuretic. We will need to monitor his renal function closely. He effectively has a single functioning kidney. 2. Coronary disease: Recent PCI to the LAD. Do not believe his mildly elevated biomarkers are reflective any recent event or stent thrombosis. I will continue aggressive secondary prevention. This includes dual anti-platelet therapy and high-dose atorvastatin. 3. Cardiomyopathy: Echocardiogram pending. Patient does have a known cardiomyopathy that is likely ischemic in nature. He is on lisinopril although with compromised renal function. Will continue beta-blockade and likely increase medications given his presenting hypertension. 4. Hypertension: He will require more aggressive antihypertensive therapy. Would advocate increasing his carvedilol and continuing low-dose nitrates. Increase in lisinopril and adding spironolactone would generally be attractive options given his cardiomyopathy, but his degree of renal dysfunction likely precludes this therapy. History of Present Illness Reason for Consultation: Dyspnea Requesting Physician: Lisa Attending Physician: Emre Carroll DO History of Present Illness He reports very mild chest discomfort at that time but nothing severe. He has not been aware of any additional symptoms earlier in the day such as palpitations, dizziness or lightheadedness. He did not report symptoms of syncope. He has not report constitutional symptoms recently such as fevers, chills, coughing or upper respiratory illness. He denies any recent swelling in his lower extremities. At the time of presentation the patient was significantly dyspneic and tachypn eic. He did undergo noninvasive ventilation with BiPAP, diuresis and application nitroglycerin both for pulmonary vascular congestion as well as hypertension. His symptoms appear to have improved. This morning he states his breathing is nearly back to baseline. Appears quite comfortable. He is not endorsing symptoms of chest discomfort. He has not been aware of any palpitations recently. He denies dizziness or lightheadedness currently. Claims to be eating and drinking well. No specific change in his diet although he does eat lunch meat and ham fairly regularly. Allergies Allergy/AdvReac Type Severity Reaction Status Date / Time No Known Allergies Allergy Unknown Verified 11/30/19 20:31 Home Medications Home Medications Medication Instructions Recorded Confirmed Type aspirin 81 mg PO DAILY 11/03/19 11/30/19 History amlodipine 10 mg PO DAILY 11/30/19 11/30/19 History atorvastatin 80 mg PO PM 11/30/19 11/30/19 History carvedilol 6.25 mg PO BID 11/30/19 11/30/19 History clopidogrel [Plavix] 75 mg PO DAILY 11/30/19 11/30/19 History lisinopril 5 mg PO DAILY 11/30/19 11/30/19 History pantoprazole 40 mg PO DAILY 11/30/19 11/30/19 History Patient History Medical History CAD (coronary artery disease) COPD (chronic obstructive pulmonary disease) Hyperlipidemia Hypertension No pertinent past medical history Peripheral vascular disease Surgical History No pertinent past surgical history Social History Preferred Language: Beninese 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 no family present Other Information That Helps Us Care for You: No Feels Safe at Home: Yes Safety Concerns: Feels Safe At This Time Smoking Status: Former smoker Cigarettes Per Day: 10-15 ; Smoking End Date: 11/2019 ; Hx Alcohol Use: Yes Alcohol type: beer Hx Substance Use: No Review of Systems Review of Systems: All systems reviewed & are unremarkable except as noted in HPI & below Physical Exam Physical Exam: The patient is alert and oriented. Mood and affect appeared normal. He answered all questions appropriately. HEENT: Pupils are equal and reactive to light and accommodation. Extraocular movements are intact. The sclerae are anicteric. Neuro: Cranial nerves intact Neck: Patient's neck is supple. He has palpable carotid pulses bilaterally without bruits on auscultation. There is no evidence of jugular venous distention. The thyroid is not enlarged. Lungs: Crackles in the bases bilaterally. Good air movement overall. Prolonged expiratory phase. No expiratory wheezing. Cardiac: Heart demonstrates a regular rate and rhythm. Normal S1 and S2. Harsh holosystolic murmur. Pulses: The patient has palpable radial pulses bilaterally that are equal in intensity Extremities: There was no evidence of hypoperfusion. There is no cyanosis or clubbing. There is no edema. Skin: I did not appreciate any rashes on examination today. Results & Data Vital Signs (Past 12 Hours) Vital Signs Temp Pulse Pulse Pulse Resp BP BP 12/01/19 12:04 37.3 C 83 22 149/67 H 12/01/19 08:00 60 12/01/19 07:52 36.7 C 60 19 118/64 12/01/19 07:05 64 19 12/01/19 03:53 36.6 C 73 20 128/68 12/01/19 02:22 83 Pulse Ox 12/01/19 12:04 12/01/19 08:00 12/01/19 07:52 97 12/01/19 07:05 98 12/01/19 03:53 100 12/01/19 02:22 Laboratory Results Abnormal Lab Results 11/30/19 11/30/19 11/30/19 19:51 20:02 20:02 WBC RBC Hgb POC Hgb Hct POC Hct MCV MCH MCHC RDW Std Deviation RDW Coeff of Monika Plt Count MPV Immature Gran % (Auto) Neut % (Auto) Lymph % (Auto) Whitfield % (Auto) Eos % (Auto) Baso % (Auto) Immature Gran # (Auto) Neut # (Auto) Lymph # (Auto) Whitfield # (Auto) Eos # (Auto) Baso # (Auto) PT INR APTT PTT Ratio Specimen Type POC pH POC pCO2 POC pO2 POC HCO3 POC Total CO2 POC Base Excess POC O2 Saturation VBG pH 7.28 L VBG pCO2 34 L VBG pO2 56 VBG HCO3 16 VBG O2 Saturation 83.8 VBG Base Excess -10.2 Barometric Pressure 726.6 POC Sodium Sodium POC Potassium Potassium Chloride Carbon Dioxide Anion Gap BUN Creatinine Est Cr Clr Drug Dosing Est GFR ( Amer) Est GFR (Non-Af Amer) BUN/Creatinine Ratio Glucose Lactate 3.7 H* Calcium Magnesium Total Bilirubin AST ALT Alkaline Phosphatase Troponin I NT-Pro-B Natriuret Pep Total Protein Albumin Globulin Albumin/Globulin Ratio Urine Color Urine Appearance Urine pH Ur Specific Den[place] Urine Protein Urine Glucose (UA) Urine Ketones Urine Blood Urine Nitrite Urine Bilirubin Urine Urobilinogen Ur Leukocyte Esterase Urine WBC (Auto) Urine RBC (Auto) U Hyaline Cast (Auto) U Epithel Cells (Auto) Urine Bacteria (Auto) Nasal Screen MRSA (PCR) Influenza Type A (PCR) Neg for Influ A Influenza Type B (PCR) Neg for Influ B 11/30/19 11/30/19 11/30/19 20:06 20:06 20:06 WBC 12.08 H RBC 3.52 L Hgb 11.2 L POC Hgb Hct 32.5 L POC Hct MCV 92.3 MCH 31.8 MCHC 34.5 RDW Std Deviation 44.8 RDW Coeff of Monika 13.4 Plt Count 290 MPV 9.5 Immature Gran % (Auto) 0.4 Neut % (Auto) 63.3 Lymph % (Auto) 24.6 Whitfield % (Auto) 9.4 Eos % (Auto) 2.1 Baso % (Auto) 0.2 Immature Gran # (Auto) 0.05 H Neut # (Auto) 7.64 H Lymph # (Auto) 2.97 Whitfield # (Auto) 1.14 H Eos # (Auto) 0.25 Baso # (Auto) 0.03 PT Cancelled INR Cancelled APTT Cancelled PTT Ratio Cancelled Specimen Type POC pH POC pCO2 POC pO2 POC HCO3 POC Total CO2 POC Base Excess POC O2 Saturation VBG pH VBG pCO2 VBG pO2 VBG HCO3 VBG O2 Saturation VBG Base Excess Barometric Pressure POC Sodium Sodium 127 L POC Potassium Potassium 4.3 Chloride 96 L Carbon Dioxide 15 L Anion Gap 16.0 H BUN 25 H Creatinine 2.05 H Est Cr Clr Drug Dosing Not Reportable Est GFR ( Amer) 39.4 Est GFR (Non-Af Amer) 34.0 BUN/Creatinine Ratio 12.2 Glucose 113 H Lactate Calcium 8.9 Magnesium 2.1 Total Bilirubin 0.4 AST 15 ALT 13 Alkaline Phosphatase 99 Troponin I 0.033 NT-Pro-B Natriuret Pep 6044 H Total Protein 7.8 Albumin 3.4 Globulin 4.4 H Albumin/Globulin Ratio 0.8 L Urine Color Urine Appearance Urine pH Ur Specific [place] Urine Protein Urine Glucose (UA) Urine Ketones Urine Blood Urine Nitrite Urine Bilirubin Urine Urobilinogen Ur Leukocyte Esterase Urine WBC (Auto) Urine RBC (Auto) U Hyaline Cast (Auto) U Epithel Cells (Auto) Urine Bacteria (Auto) Nasal Screen MRSA (PCR) Influenza Type A (PCR) Influenza Type B (PCR) 11/30/19 11/30/19 11/30/19 20:50 21:18 21:45 WBC RBC Hgb POC Hgb 10.2 L Hct POC Hct 30 L MCV MCH MCHC RDW Std Deviation RDW Coeff of Monika Plt Count MPV Immature Gran % (Auto) Neut % (Auto) Lymph % (Auto) Whitfield % (Auto) Eos % (Auto) Baso % (Auto) Immature Gran # (Auto) Neut # (Auto) Lymph # (Auto) Whitfield # (Auto) Eos # (Auto) Baso # (Auto) PT 10.4 INR 1.0 APTT 23.2 PTT Ratio 0.9 Specimen Type Arterial POC pH 7.41 POC pCO2 27 L POC pO2 59 L POC HCO3 17 L POC Total CO2 18 L POC Base Excess -7.0 POC O2 Saturation 91 VBG pH VBG pCO2 VBG pO2 VBG HCO3 VBG O2 Saturation VBG Base Excess Barometric Pressure POC Sodium 125 L Sodium POC Potassium 4.8 Potassium Chloride Carbon Dioxide Anion Gap BUN Creatinine Est Cr Clr Drug Dosing Est GFR ( Amer) Est GFR (Non-Af Amer) BUN/Creatinine Ratio Glucose Lactate Calcium Magnesium Total Bilirubin AST ALT Alkaline Phosphatase Troponin I NT-Pro-B Natriuret Pep Total Protein Albumin Globulin Albumin/Globulin Ratio Urine Color Urine Appearance Urine pH Ur Specific [place] Urine Protein Urine Glucose (UA) Urine Ketones Urine Blood Urine Nitrite Urine Bilirubin Urine Urobilinogen Ur Leukocyte Esterase Urine WBC (Auto) Urine RBC (Auto) U Hyaline Cast (Auto) U Epithel Cells (Auto) Urine Bacteria (Auto) Nasal Screen MRSA (PCR) Negative Influenza Type A (PCR) Influenza Type B (PCR) 11/30/19 11/30/19 11/30/19 21:49 21:50 23:07 WBC RBC Hgb POC Hgb Hct POC Hct MCV MCH MCHC RDW Std Deviation RDW Coeff of Monika Plt Count MPV Immature Gran % (Auto) Neut % (Auto) Lymph % (Auto) Whitfield % (Auto) Eos % (Auto) Baso % (Auto) Immature Gran # (Auto) Neut # (Auto) Lymph # (Auto) Whitfield # (Auto) Eos # (Auto) Baso # (Auto) PT INR APTT PTT Ratio Specimen Type POC pH POC pCO2 POC pO2 POC HCO3 POC Total CO2 POC Base Excess POC O2 Saturation VBG pH VBG pCO2 VBG pO2 VBG HCO3 VBG O2 Saturation VBG Base Excess Barometric Pressure POC Sodium Sodium POC Potassium Potassium Chloride Carbon Dioxide Anion Gap BUN Creatinine Est Cr Clr Drug Dosing Est GFR ( Amer) Est GFR (Non-Af Amer) BUN/Creatinine Ratio Glucose Lactate 1.2 Calcium Magnesium 2.0 Total Bilirubin AST ALT Alkaline Phosphatase Troponin I 0.097 H* NT-Pro-B Natriuret Pep Total Protein Albumin Globulin Albumin/Globulin Ratio Urine Color Yellow Urine Appearance Clear Urine pH 5.5 Ur Specific Den[place] 1.008 Urine Protein 2+ H Urine Glucose (UA) Negative Urine Ketones Negative Urine Blood Trace H Urine Nitrite Negative Urine Bilirubin Negative Urine Urobilinogen Negative Ur Leukocyte Esterase Negative Urine WBC (Auto) 0 Urine RBC (Auto) 0-4 U Hyaline Cast (Auto) 0 U Epithel Cells (Auto) 0-5 Urine Bacteria (Auto) Negative Nasal Screen MRSA (PCR) Influenza Type A (PCR) Influenza Type B (PCR) 12/01/19 12/01/19 12/01/19 07:06 07:06 07:06 WBC 5.67 RBC 2.89 L Hgb 9.1 L POC Hgb Hct 26.3 L POC Hct MCV 91.0 MCH 31.5 MCHC 34.6 RDW Std Deviation 44.1 RDW Coeff of Monika 13.3 Plt Count 214 MPV 9.2 Immature Gran % (Auto) 0.2 Neut % (Auto) 61.7 Lymph % (Auto) 23.3 Whitfield % (Auto) 12.7 Eos % (Auto) 1.6 Baso % (Auto) 0.5 Immature Gran # (Auto) 0.01 Neut # (Auto) 3.50 Lymph # (Auto) 1.32 Whitfield # (Auto) 0.72 H Eos # (Auto) 0.09 Baso # (Auto) 0.03 PT 10.7 INR 1.0 APTT PTT Ratio Specimen Type POC pH POC pCO2 POC pO2 POC HCO3 POC Total CO2 POC Base Excess POC O2 Saturation VBG pH VBG pCO2 VBG pO2 VBG HCO3 VBG O2 Saturation VBG Base Excess Barometric Pressure POC Sodium Sodium 130 L POC Potassium Potassium 4.3 Chloride 99 Carbon Dioxide 22 Anion Gap 9.0 BUN 26 H Creatinine 2.35 H D Est Cr Clr Drug Dosing 29.9 Est GFR ( Amer) 33.4 Est GFR (Non-Af Amer) 28.8 BUN/Creatinine Ratio 11.2 Glucose 96 Lactate Calcium 8.6 Magnesium Total Bilirubin 0.6 AST 13 L ALT 11 L Alkaline Phosphatase 81 Troponin I NT-Pro-B Natriuret Pep Total Protein 6.5 Albumin 2.8 L Globulin 3.7 Albumin/Globulin Ratio 0.8 L Urine Color Urine Appearance Urine pH Ur Specific [place] Urine Protein Urine Glucose (UA) Urine Ketones Urine Blood Urine Nitrite Urine Bilirubin Urine Urobilinogen Ur Leukocyte Esterase Urine WBC (Auto) Urine RBC (Auto) U Hyaline Cast (Auto) U Epithel Cells (Auto) Urine Bacteria (Auto) Nasal Screen MRSA (PCR) Influenza Type A (PCR) Influenza Type B (PCR) 12/01/19 07:06 WBC RBC Hgb POC Hgb Hct POC Hct MCV MCH MCHC RDW Std Deviation RDW Coeff of Monika Plt Count MPV Immature Gran % (Auto) Neut % (Auto) Lymph % (Auto) Whitfield % (Auto) Eos % (Auto) Baso % (Auto) Immature Gran # (Auto) Neut # (Auto) Lymph # (Auto) Whitfield # (Auto) Eos # (Auto) Baso # (Auto) PT INR APTT PTT Ratio Specimen Type POC pH POC pCO2 POC pO2 POC HCO3 POC Total CO2 POC Base Excess POC O2 Saturation VBG pH VBG pCO2 VBG pO2 VBG HCO3 VBG O2 Saturation VBG Base Excess Barometric Pressure POC Sodium Sodium POC Potassium Potassium Chloride Carbon Dioxide Anion Gap BUN Creatinine Est Cr Clr Drug Dosing Est GFR ( Amer) Est GFR (Non-Af Amer) BUN/Creatinine Ratio Glucose Lactate Calcium Magnesium Total Bilirubin AST ALT Alkaline Phosphatase Troponin I 0.115 H* NT-Pro-B Natriuret Pep Total Protein Albumin Globulin Albumin/Globulin Ratio Urine Color Urine Appearance Urine pH Ur Specific [place] Urine Protein Urine Glucose (UA) Urine Ketones Urine Blood Urine Nitrite Urine Bilirubin Urine Urobilinogen Ur Leukocyte Esterase Urine WBC (Auto) Urine RBC (Auto) U Hyaline Cast (Auto) U Epithel Cells (Auto) Urine Bacteria (Auto) Nasal Screen MRSA (PCR) Influenza Type A (PCR) Influenza Type B (PCR) Diagnostic Findings Echocardiogram performed 11/03/2019: Moderate reduced LV systolic function with ejection fraction 35-40%. Aortic valve sclerosis without stenosis. Siva-pi-wviejulr aortic regurgitation. Cardiac catheterization performed 11/06/2019: 95% mid LAD lesion. Total occlusion of the right coronary artery. Nonobstructive disease involving the circumflex system. PCI to the LAD x3 PG Care Time/CCT Total # of Minutes Spent Total Time Spent with Patient: Total time spent is greater than 50% in coordination of care (as documented) at patient's floor/unit and/or counseling patient: Coding Level of Care Code 39732 Office/OBS Consult Lvl 4 Diagnoses Cardiomyopathy I42.9 Left bundle branch block I44.7 Aortic regurgitation I35.1 CAD (coronary artery disease) I25.10 Hypertension I10 Acute exacerbation of CHF (congestive heart failure) I50.9
[2019-12-01 12:29] LABS: Base Excess VBG -1.3 mEq/L; Oxygen Saturation VBG 88.8 %; pH VBG 7.51 (7.36-7.41)
--- NOTE | 2019-12-01 13:27 | Hospitalist Progress Note ---
Date of Service December 01, 2019 Assessment & Plan (1) Acute respiratory failure with hypoxia: 59 y/o M w/ pMHx. of cardiomyopathy, LBBB, hyponatremia, LINDSAY, NSTEMI, CKD III, HTN, HLD, CAD, Discharged from [facility] [address] after heart attack w/ stents placed presenting with acute hypoxic respiratory failure. - AHRF likely 2/2 acute CHF exacerbation ECHO 11/03 EF 35-40% repeat today EF 35-40% w/ left ventricle borderline dilated. LVSF is mildly reduced. Mild global hypokinesis of left ventricle. Moderate aortic regurgitation - initial VBG - pH 7.28, pCO2 34 - CXR w/ cardiomegaly, pulmonary edema, small effusions, and R>L probable atelectasis and emphysema - weaned from BiPAP to NC this AM - Lasix 40 mg given yesterday - Cr. bumped from 2.05 to 2.35 - Troponin elevated but downtrendin/26 @ 23:07 - 0.097 ; 12/01 @ 7:06 - 0.115 ; 12/01 @ 14:40 0.080 - Cardiology consulted appreciate recs - continue to monitor BMP and patient's fluid status (2) LINDSAY (acute kidney injury): - History of CKD stage III Cr. at discharge from [facility] [address] was 2.1 - Cr. 2.35 today - continue to monitor with AM BMP (3) CAD (coronary artery disease): - s/p stents X3 - continue ASA, Clopidogrel, Amlodipine, Carvedilol - continue Atorvastatin 80 mg - Holding Lisinopril given elevated Cr. (4) Hyponatremia: - improving w/ current Na. at 130 - continue to monitor w/ AM BMP Supervising Physician Co-Signing Physician Notes I saw the patient with the resident physician and I agree with the above impression and plan. The patient generally feels somewhat better this morning compared to admission. Echocardiogram shows decreased LV function, 35-40% range. Cardiology consultation appreciated. Acute respiratory failure with hypoxia, secondary to acute on chronic systolic heart failure He does not appear to be on a diuretic at home; will need to review records from [facility] to confirm. Discontinue antibiotics Repeat CXR in AM CKD, III, with acute kidney injury Cr 2.35 today, up from 2.1 at [facility] Will need to monitor with diuretic dosing Hyponatremia Assume hypervolemic BMP in AM CAD S/P stenting at [facility] cardiology consult ASA, Plavix, Beta feli, CCB, high dose statin Hold ASHLIE for now Anemia Does not appear acute Monitor Subjective He was feeling better this morning. He states that he was switched from BiPAP to NC this morning at 7:30 AM. His one question this morning was why this continues to happen. I informed him that we were waiting on the results of the ECHO and that we would continue to evaluate him through the day. Review of Systems Constitutional: no fever and no chills Respiratory: no cough and no sputum production denies shortness of breath this morning Cardiovascular: no chest pain and no palpitations Gastrointestinal: + vomiting (last night) Physical Exam Constitutional: WD/WN, vitals as above Eyes: PERRL, conjunctivae normal, anicteric sclerae ENMT: external ear and nose normal, oropharynx normal Neck: trachea midline, no thyromegaly Respiratory: normal respiratory effort, lungs clear to auscultation Cardiovascular: Rate/Rhythm: regular rate and regular rhythm Extremities: no edema 2/6 murmur heard best at the right sternal border Gastrointestinal (Abdomen): normal bowel sounds, soft, nontender, no hepatosplenomegaly Skin: no rashes, warm and dry Psychiatric: A+Ox3, euthymic affect Results & Data Vital Signs (Past 12 Hours) Vital Signs Temp Pulse Pulse Pulse Resp BP BP 12/01/19 13:04 12/01/19 12:04 37.3 C 83 22 149/67 H 12/01/19 08:00 60 12/01/19 07:52 36.7 C 60 19 118/64 12/01/19 07:05 64 19 12/01/19 03:53 36.6 C 73 20 128/68 12/01/19 02:22 83 Pulse Ox 12/01/19 13:04 96 12/01/19 12:04 12/01/19 08:00 12/01/19 07:52 97 12/01/19 07:05 98 12/01/19 03:53 100 12/01/19 02:22 Resident Activity Tracking Resident Involvement: Resident Care Provided Care Provided: Adult Hospital Medicine
[2019-12-01] MEDS: NICOTINE 7 MG/24 HR TDSY TD SCH (15:08)
[2019-12-01] MEDS: [UNRECOGNIZED DRUG - REMARK] SCH (15:42)
--- NOTE | 2019-12-01 19:55 | Electrocardiogram Report ---
Test Reason : Blood Pressure : / mmHG Vent. Rate : 103 BPM Atrial Rate : 103 BPM P-R Int : 142 ms QRS Dur : 142 ms QT Int : 374 ms P-R-T Axes : 053 -25 110 degrees QTc Int : 489 ms Poor data quality, interpretation may be adversely affected Sinus tachycardia Possible Left atrial enlargement Left bundle branch block Abnormal ECG When compared with ECG of 03-NOV-2019 08:14, Vent. rate has increased BY 39 BPM Inverted T waves have replaced nonspecific T wave abnormality in Lateral leads Confirmed by David Doherty ([id number]) on 12/01/2019 7:55:21 PM Referred By: REFERRED SELF Confirmed By:Ankit Doherty
--- NOTE | 2019-12-01 20:02 | Electrocardiogram Report ---
Test Reason : Blood Pressure : / mmHG Vent. Rate : 065 BPM Atrial Rate : 065 BPM P-R Int : 140 ms QRS Dur : 142 ms QT Int : 492 ms P-R-T Axes : 076 -32 086 degrees QTc Int : 511 ms Normal sinus rhythm Left axis deviation Left bundle branch block Abnormal ECG When compared with ECG of 30-NOV-2019 19:39, (unconfirmed) Vent. rate has decreased BY 38 BPM T wave inversion no longer evident in Lateral leads Confirmed by David Doherty ([id number]) on 12/01/2019 8:01:50 PM Referred By: REFERRED SELF Confirmed By:Ankit Doherty
[2019-12-01] MEDS: ATORVASTATIN 40 MG TAB PO SCH (20:26)
[2019-12-02] MEDS: [UNRECOGNIZED DRUG - REMARK] SCH ×4 (01:08→23:39)
[2019-12-02] MEDS: PIPERACILLIN/TAZOBACTAM 3.375 GM in DEXTROSE 5% 100 ML IV SCH (02:24)
[2019-12-02 07:11] LABS: Basophils # (auto) 0.04 K/uL (0-0.2); Basophils % (auto) 0.7 %; Eosinophils # (auto) 0.35 K/uL (0-0.5); Eosinophils % (auto) 5.8 %; Hematocrit (blood only) 26.8 % (42-52); Hemoglobin 9.2 g/dL (14.0-18.0); Immature Granulocytes # (auto) 0.01 K/uL (0.00-0.02); Immature Granulocytes % (auto) 0.2 %; Mean Corpuscular Hemoglobin 31.7 pg (25-34); Mean Corpuscular Hgb Conc 34.3 g/dL (32-36); Mean Corpuscular Volume 92.4 fL (80-100); Mean Platelet Volume 9.3 fL (7.4-10.4); Monocytes # (auto) 0.83 K/uL (0.11-0.59); Monocytes % (auto) 13.7 %; Neutrophils # (auto) 2.83 K/uL (1.4-6.5); Neutrophils % (auto) 46.6 %; Platelet Count 221 K/uL (130-400); RDW Coefficient of Variation 13.5 % (11.5-14.5); RDW Standard Deviation 45.5 fL (36.4-46.3); White Blood Count 6.06 K/uL (4.8-10.8)
[2019-12-02 07:18] LABS: Prothrombin Time 10.7 Seconds (9.0-12.0)
[2019-12-02 07:47] LABS: Albumin Level 2.7 gm/dl (3.4-5.0); BUN Creatinine Ratio 10.8 (10-20); Calcium 8.5 mg/dl (8.5-10.1); Creatinine Clr Calc Pharmacy 27.6 ml/min; Est GFR (African American) 30.8; Est GFR (Non-African American) 26.6; Potassium 4.3 mmol/L (3.5-5.1)
[2019-12-02 07:49] LABS: Albumin Globulin Ratio 0.8 (0.9-2); Bilirubin,Total 0.5 mg/dl (0.2-1); Globulin 3.6 gm/dl (2.5-4.0); Total Protein 6.3 gm/dl (6.4-8.2)
--- NOTE | 2019-12-02 08:35 | XRay Report ---
XR chest 2V PA/lateral HISTORY: Congestive heart failure. Shortness of breath. COMPARISON: Chest 11/30/2019. FINDINGS: Interval improvement in the mild congestive change and small bilateral pleural effusions. T he heart is normal in size. No pneumothorax. No new focal lung consolidations. IMPRESSION: Improvement in the mild congestive change and small bilateral pleural effusions. ACT 112: Negative or not required by law. Electronically signed by: Uvaldo Bolaños M.D. 12/02/2019 8:34 AM
[2019-12-02] MEDS: AMLODIPINE BESYLATE 5 MG TAB PO SCH (08:42)
[2019-12-02] MEDS: CLOPIDOGREL BISULFATE 75 MG TAB PO SCH (08:42)
[2019-12-02] MEDS: carvediloL 6.25 MG TAB PO SCH (08:42)
[2019-12-02] MEDS: PANTOprazole 40 MG TAB PO SCH (08:43)
[2019-12-02] MEDS: ASPIRIN 81 MG ECTAB PO SCH (08:43)
--- NOTE | 2019-12-02 10:33 | XCELERA ---
[id number] \\[id number]
--- NOTE | 2019-12-02 11:19 | Hospitalist Progress Note ---
Date of Service December 02, 2019 Assessment & Plan (1) Acute respiratory failure with hypoxia: 59 y/o M w/ pMHx. of cardiomyopathy, LBBB, hyponatremia, LINDSAY, NSTEMI, CKD III, HTN, HLD, CAD, Discharged from [facility] after heart attack w/ stents placed presenting with acute hypoxic respiratory failure. Overnight was back on BiPAP and then CPAP. We are considering that sleep apnea may be contributing to his oxygen requirement overnight. - AHRF likely 2/2 acute CHF exacerbation ECHO 11/03 EF 35-40% repeat EF 35-40% w/ left ventricle borderline dilated. LVSF is mildly reduced. Mild global hypokinesis of left ventricle. Moderate aortic regurgitation - CXR 12/02 - improvement in mild congestive change and small bilateral pleural effusion - weaned from BiPAP to NC this AM - placed order for CPAP HS - Cr. bumped from 2.35 again to 2.51 - Troponin initially elevated but downtrendin/26 @ 23:07 - 0.097 ; 12/01 @ 7:06 - 0.115 ; 12/01 @ 14:40 0.080 - Cardiology consulted appreciate recs - continue to monitor BMP and patient's fluid status Code: Full (2) LINDSAY (acute kidney injury): - History of CKD stage III Cr. at discharge from [facility] was 2.1 - Cr. 2.51 today up from 2.35 12/01 - continue to monitor with AM BMP - if Cr. increases in the AM will consult nephrology (3) CAD (coronary artery disease): - s/p stents X3 - continue ASA, Clopidogrel, Amlodipine, - increased Carvedilol to 12.5 BID - continue Atorvastatin 80 mg - Holding Lisinopril given elevated Cr. (4) Hyponatremia: - improving w/ current Na. at 131 - continue to monitor w/ AM BMP Supervising Physician Co-Signing Physician Notes I saw the patient with the resident physician and I confirmed peck portions of the history and physical examination. I agree with the above impression and plan as noted the resident documentation. Acute respiratory failure with hypoxia, secondary to acute on chronic systolic heart failure Repeat chest x-ray shows improvement in congestive change He will probably need a low-dose diuretic, although we will need to see what his kidney will tolerate. If is able to follow daily weights, may need to have a as needed dose. Reinforced low-salt diet CKD, III, with acute kidney injury Creatinine up to 2.5 from 2.3 Daily BMP Hyponatremia Assume hypervolemic Trending up Daily BMP CAD S/P stenting at [facility] cardiology consult ASA, Plavix, Beta feli, CCB, high dose statin Increase Coreg to 12.5 mg p.o. twice daily Continue to hold ASHLIE inhibitor in light of renal function Anemia Does not appear acute Monitor Subjective He is doing well today. He was having shortness of breath when he was lying in bed overnight. He was interested with getting CPAP at home. We discussed using CPAP overnight while he is here in the hospital. The patient in the bed next to his did state that he did snore overnight. Review of Systems Constitutional: no fever and no chills Respiratory: no cough and no sputum production admits shortness of breath that has improved Cardiovascular: no chest pain and no palpitations Gastrointestinal: no vomiting Physical Exam Constitutional: WD/WN, vitals as above Eyes: PERRL, conjunctivae normal, anicteric sclerae ENMT: external ear and nose normal, oropharynx normal Neck: trachea midline, no thyromegaly Respiratory: normal respiratory effort, lungs clear to auscultation Cardiovascular: Rate/Rhythm: regular rate and regular rhythm Extremities: no edema Gastrointestinal (Abdomen): normal bowel sounds, soft, nontender, no hepatosplenomegaly Skin: no rashes, warm and dry Psychiatric: A+Ox3, euthymic affect Results & Data Vital Signs (Past 12 Hours) Vital Signs Temp Pulse Pulse Pulse Resp BP BP 12/02/19 08:00 59 L 12/02/19 07:10 36.5 C 59 L 18 130/66 12/02/19 03:50 36.5 C 74 18 126/69 12/02/19 02:59 69 15 12/02/19 00:05 76 Pulse Ox 12/02/19 08:00 12/02/19 07:10 94 12/02/19 03:50 100 12/02/19 02:59 97 12/02/19 00:05 Resident Activity Tracking Resident Involvement: Resident Care Provided Care Provided: Adult Hospital Medicine
[2019-12-02] MEDS: NICOTINE 7 MG/24 HR TDSY TD SCH (13:38)
[2019-12-02] MEDS: carvediloL 12.5 MG TAB PO SCH (20:05)
[2019-12-02] MEDS: ATORVASTATIN 40 MG TAB PO SCH (20:05)
[2019-12-03 05:35] LABS: Basophils # (auto) 0.04 K/uL (0-0.2); Basophils % (auto) 0.6 %; Eosinophils # (auto) 0.52 K/uL (0-0.5); Eosinophils % (auto) 8.1 %; Hematocrit (blood only) 29.2 % (42-52); Immature Granulocytes # (auto) 0.03 K/uL (0.00-0.02); Immature Granulocytes % (auto) 0.5 %; Lymphocytes # (auto) 1.79 K/uL (1.2-3.4); Lymphocytes % (auto) 27.8 %; Mean Corpuscular Hemoglobin 31.8 pg (25-34); Mean Corpuscular Hgb Conc 34.2 g/dL (32-36); Monocytes # (auto) 1.03 K/uL (0.11-0.59); Neutrophils # (auto) 3.04 K/uL (1.4-6.5); Platelet Count 211 K/uL (130-400); RDW Coefficient of Variation 13.7 % (11.5-14.5); RDW Standard Deviation 46.2 fL (36.4-46.3); Red Blood Count 3.14 M/uL (4.7-6.1); White Blood Count 6.45 K/uL (4.8-10.8)
[2019-12-03 05:43] LABS: INR 1.1 (0.9-1.1); Prothrombin Time 10.9 Seconds (9.0-12.0)
[2019-12-03 06:00] LABS: Albumin Level 2.6 gm/dl (3.4-5.0); BUN Creatinine Ratio 11.9 (10-20); Calcium 8.8 mg/dl (8.5-10.1); Creatinine Clr Calc Pharmacy 27.3 ml/min; Est GFR (African American) 30.4; Est GFR (Non-African American) 26.2; Potassium 4.5 mmol/L (3.5-5.1)
[2019-12-03 06:02] LABS: Albumin Globulin Ratio 0.7 (0.9-2); Bilirubin,Total 0.3 mg/dl (0.2-1); Globulin 3.8 gm/dl (2.5-4.0); Total Protein 6.4 gm/dl (6.4-8.2)
[2019-12-03] MEDS: AMLODIPINE BESYLATE 5 MG TAB PO SCH (08:23)
[2019-12-03] MEDS: ASPIRIN 81 MG ECTAB PO SCH (08:23)
[2019-12-03] MEDS: CLOPIDOGREL BISULFATE 75 MG TAB PO SCH (08:23)
[2019-12-03] MEDS: PANTOprazole 40 MG TAB PO SCH (08:23)
[2019-12-03] MEDS: [UNRECOGNIZED DRUG - REMARK] SCH (08:23)
[2019-12-03] MEDS: carvediloL 12.5 MG TAB PO SCH (08:23)
--- NOTE | 2019-12-03 17:29 | Electrocardiogram Report ---
Test Reason : Blood Pressure : / mmHG Vent. Rate : 061 BPM Atrial Rate : 061 BPM P-R Int : 138 ms QRS Dur : 140 ms QT Int : 478 ms P-R-T Axes : 039 -33 050 degrees QTc Int : 481 ms Normal sinus rhythm Left axis deviation Left bundle branch block Abnormal ECG When compared with ECG of 01-DEC-2019 06:35, No significant change was found Confirmed by David Doherty ([id number]) on 12/03/2019 5:29:07 PM Referred By: REFERRED SELF Confirmed By:Ankit Doherty
--- NOTE | 2019-12-03 21:47 | Discharge Summary ---
Date of Service December 03, 2019 Admission HPI Per Admitting Provider The patient is a 59 yo male with PMH cardiomyopathy, LBBB, AI, Hypontremia, LINDSAY, NSTEMI, CAD, HTN, hyperlipidemia, PVD, and acute respiratory failure due to CHF exacerbation on 11/03/2019 requiring intubation. He presents to the ED with the Acute onset today of SOB/DAVIS and acute respiratory failure, somewhat improved on BIPAP in the ED. in the ED he also received Zosyn 4.5 g IV, DuoNeb treatment, Reglan IV, Nitro-Bid, and Lasix 20 mg IV. Admission Exam Per Admitting Provider The patient is awake, alert and oriented 3, well developed and well nourished, wearing BIPAP, sitting upright in bed and in mild respiratory distress. HEENT--PERRL, EOMI, mucous membranes and oropharynx dry. Neck--supple. No JVD. No bruits. Thyroid normal, trachea midline, no adenopathy. Heart--normal S1 and S2. No murmurs, rubs or gallops. Lungs--coarse breath sounds bilaterally with wheezes. Mild respiratory distress, no accessory muscle use. Abdomen--normal bowel sounds and soft. Nontender. Nondistended. Extremities--no cyanosis or clubbing. 1+ bilateral pretibial pitting edema. Dermatologic--normal skin turgor, normal color, no abnormal lymph nodes, no rash. Neurologic--cranial nerves II through XII grossly intact. Rheumatologic--normal range of motion. Psychiatric--normal affect. Principal Diagnosis CHF acute hypoxic respiratory failure 2/2 acute CHF exacerbation LINDSAY CKD CAD Hyponatremia LBBB HTN HLD Discharge Exam Constitutional WD/WN, vitals as above Eyes PERRL, conjunctivae normal, anicteric sclerae ENMT external ear and nose normal, oropharynx normal Neck trachea midline, no thyromegaly Respiratory normal respiratory effort, lungs clear to auscultation Cardiovascular Rate/Rhythm: regular rate and regular rhythm Extremities: no edema Gastrointestinal (Abdomen) normal bowel sounds, soft, nontender, no hepatosplenomegaly Skin no rashes, warm and dry Psychiatric A+Ox3, euthymic affect Discharge Data Allergies Allergy/AdvReac Type Severity Reaction Status Date / Time No Known Allergies Allergy Unknown Verified 11/30/19 20:31 Consultations 11/30/19 20:38 ED Decision to Admit Stat 11/30/19 22:50 Consult Cardiology Routine Consult Case Management - Discharge Planning Routine Hospital Course (1) Acute respiratory failure with hypoxia: 59 y/o M w/ pMHx. of cardiomyopathy, LBBB, hyponatremia, LINDSAY, NSTEMI, CKD III, HTN, HLD, CAD, Discharged from [facility] after heart attack (1/) w/ stents placed presenting with acute hypoxic respiratory failure. was initially on BiPAP and weaned to room air prior to discharge. We are considering that sleep apnea may be contributing to his oxygen requirement since he is did have some difficulty with saturations primarily at night. - AHRF likely 2/2 acute CHF exacerbation ECHO 11/03 EF 35-40% repeat during hospitalization with EF 35-40% w/ left ventricle borderline dilated. LVSF is mildly reduced. Mild global hypokinesis of left ventricle. Moderate aortic regurgitation - CXR 12/02 - improvement in mild congestive change and small bilateral pleural effusion - weaned from BiPAP to to nasal canula and eventually to room air and was given a walking trial which he paced - Cr. bumped from prior hospitalization where it was 2.1 and during this hospitalization he was between 2.3 and 2.5 - Troponin initially elevated but downtrended: 11/30 @ 23:07 - 0.097 ; 12/01 @ 7:06 - 0.115 ; 12/01 @ 14:40 0.080 - Cardiology consulted appreciate recs - Lisinopril was discontinued during the hospitalization due to worsening kidney function but was added back at 2.5 mg at discharge - Lasix was given in the ER and was found to improve his difficulty breathing, we discharged him on 20 mg lasix every other day. - Follow up with Dr. Duncan with [facility] on Tuesday 11/07 - recommend BMP during clinic visit to monitor kidney function Code: Full (2) LINDSAY (acute kidney injury): - History of CKD stage III Cr. at discharge from [facility] was 2.1 - Cr. trended up to 2.5 but stabilized before discharge - continue to monitor with BMP outpatient (3) CAD (coronary artery disease): - s/p stents X3 - continue ASA, Clopidogrel, Amlodipine, - increased Carvedilol to 12.5 BID - continue Atorvastatin 80 mg (4) Hyponatremia: - improving w/ current Na. at 136 at discharge - continue to monitor with outpatient BMP Total Time Total Time Spent Total Time Spent (In Minutes): Discharge Plan Discharge Items Patient Disposition: Home - Self-Care Reason For Visit: ACUTE ON CHRONIC RESP FAILURE W HYPOXIA AND HYPERC Discharge Diagnosis: Acute hypoxic respiratory failure 2/2 acute CHF exacerbation LINDSAY CKD CAD Hyponatremia Activity: Per Instructions section Non-emergency contact: Primary Care Provider and Ghost Writer Call non-emergency contact if: your symptoms worsen Follow-up/Referrals: Carmen Schroeder PA-C [Physician Supervisor Rides] - 12/10/19 2:00 pm Carmen Viramontes PA-C [Primary Care Provider] - Diet: Heart Healthy and Low Sodium (2gm) Addtl Attending Provider Instructions: You were admitted to the hospital for worsening heart failure that was causing you to have shortness of breath. Your heart is weak and does not squeeze normally. Symptoms of heart failure include trouble breathing - at first, people might have trouble breathing only with activity. Over time, they can have trouble breathing when resting or lying down. You may experience swelling in your feet, ankles, legs, or belly. You may also feel tired. Treatment of heart failure includes taking medications. Changes to your medications include decreasing your Lisinopril to 2.5 from 5 mg. The other change to your medications will be to add Lasix. you will take 20 mg of Lasix every other day. It will be important to follow up with your Ghost Writer on Sunday to inform him of the changes that have been made to the medication and discuss the hospitalization. You will need to have blood work to evaluate your kidney function. Call your doctor if you are dizzy or weak, or you lose or gain weight suddenly. Weigh yourself every morning after you urinate but before breakfast. Try to wear about the same amount of clothes every time. Bring your daily weights to your cardiology visit. Pending Studies at Discharge: Yes Studies:: blood cultures negative at 48 hours Stand-Alone Forms: My [employer], Smoking Cessation Medications and DC Order Prescriptions: New lisinopril 2.5 mg tablet 2.5 mg PO DAILY Qty: 30 RF: 0 furosemide [Lasix] 20 mg tablet 20 mg PO Q OTHER DAY Qty: 30 RF: 0 lisinopril 2.5 mg tablet 2.5 mg PO DAILY Qty: 10 RF: 0 furosemide [Lasix] 20 mg tablet 20 mg PO Q OTHER DAY Qty: 5 RF: 0 furosemide [Lasix] 20 mg tablet 20 mg PO Q OTHER DAY Qty: 5 RF: 0 lisinopril 2.5 mg tablet 2.5 mg PO DAILY Qty: 10 RF: 0 Continued aspirin 81 mg Tablet,Delayed Release (Dr/Ec) 81 mg PO DAILY RF: 0 atorvastatin 80 mg Tablet 80 mg PO PM RF: 0 carvedilol 12.5 mg Tablet 6.25 mg PO BID RF: 0 clopidogrel [Plavix] 75 mg Tablet 75 mg PO DAILY RF: 0 amlodipine 10 mg Tablet 10 mg PO DAILY RF: 0 pantoprazole 40 mg Tablet,Delayed Release (Dr/Ec) 40 mg PO DAILY RF: 0 Discontinued lisinopril 10 mg Tablet 5 mg PO DAILY RF: 0 Discharge Orders: Discharge Order (Routine); Ordered 12/03/19 Ordered By: Buddy Toscano/Other Patient Handouts: Hypertension Control, Heart Failure, Heart Failure Tracking Weight, Heart Failure Diet Changes, Hypertension Dc, Lisinopril Oral tablet, Furosemide Oral tablet Admission Data Admit Date/Time: 11/30/19 22:09 Attending Provider: Emre Carroll Admit Provider: Abimael Thomas Primary Care Provider: Carmen Viramontes Other Providers: Abimael Thomas ; Apolinar Doherty ; Carmen Schroeder Other Interventions: Discharge Summary Assessment (RN) Last Done: 12/03/19 12:11 DC Date/Time DO NOT enter until pt leaves facility: 12/03/19 13:03 Supervising Physician Co-Signing Physician Notes I saw the patient with the resident physician and I confirmed peck portions of the history and physical examination. I agree with the above impression and plan as noted the resident documentation. Acute respiratory failure with hypoxia, secondary to acute on chronic systolic heart failure Lasix 20 mg every other day He will probably need a low-dose diuretic, although we will need to see what his kidney will tolerate. If is able to follow daily weights, may need to have a as needed dose. Reinforced low-salt diet CKD, III, with acute kidney injury Creatinine 2.5 upon discharge, baseline around 2 Lisinopril 2.5 mg daily (reduced from 5 mg upon admission) Monitor creatinine CAD S/P stenting at [facility] in [place] in early November He has outpatient follow-up with [facility] next week ASA, Plavix, Beta feli, CCB, high dose statin Increase Coreg to 12.5 mg p.o. twice daily this admission Resident Activity Tracking Resident Involvement: Resident Care Provided Care Provided: Adult Hospital Medicine
== END 2019-12-03 13:03 | disposition home or self-care (01) | DRG 189 ==
LOC: ED 19:27 → SUATTDRO 22:09 → 2S 22:09

== ENCOUNTER 2019-12-24 21:20 | Inpatient (IN) ==
[2019-12-24] MEDS ORDERED: ALBUT/IPRATROP 3MG/0.5MG NEB 3 ML VIAL INH STA (21:38)
[2019-12-24] MEDS ORDERED: NITROGLYCERIN 2% OINTMENT 30GM TUBE ONE (21:38)
[2019-12-24] MEDS ORDERED: FUROSEMIDE 40 MG/4 ML VIAL IV STA (21:41)
[2019-12-24] MEDS ORDERED: ONDANSETRON INJ 2 MG/ML 2 ML VIAL IV STA (21:44)
--- NOTE | 2019-12-24 21:57 | XRay Report ---
SINGLE VIEW CHEST CLINICAL HISTORY: Dyspnea. FINDINGS: An AP, portable, upright chest radiograph is compared to study dated 11/24/2019 and correlat ed with chest CT dated 11/03/2019. The examination is degraded by portable technique and patient rota tion. The heart is enlarged noting atherosclerotic calcification of the thoracic aorta. There is pulm onary vascular congestion with evidence of interstitial edema. Airspace opacities are noted in the jean ng bases. There are small layering pleural effusions. No pneumothorax is seen. The skeletal structure s are osteopenic. The bony thorax is grossly intact. IMPRESSION: 1. Cardiomegaly with evidence of congestive failure and interstitial edema. 2. Small layering pleural effusions. 3. Bibasilar airspace opacities likely represent atelectasis/edema. Correlate clinically for evidence of superimposed pneumonia. ACT 112: Negative or not required by law. Electronically signed by: Tyler Gresham M.D. 12/24/2019 9:56 PM
[2019-12-24] MEDS: LORazepam 1 MG/2 ML VIAL IV STA ×2 (21:59→22:15)
[2019-12-24 22:04] LABS: Basophils # (auto) 0.12 K/uL (0-0.2); Basophils % (auto) 0.9 %; Eosinophils % (auto) 3.8 %; Hematocrit (blood only) 30.2 % (42-52); Hemoglobin 10.2 g/dL (14.0-18.0); Immature Granulocytes # (auto) 0.03 K/uL (0.00-0.02); Immature Granulocytes % (auto) 0.2 %; Lymphocytes # (auto) 3.36 K/uL (1.2-3.4); Lymphocytes % (auto) 25.5 %; Mean Corpuscular Hemoglobin 30.6 pg (25-34); Mean Corpuscular Hgb Conc 33.8 g/dL (32-36); Mean Corpuscular Volume 90.7 fL (80-100); Mean Platelet Volume 9.6 fL (7.4-10.4); Monocytes # (auto) 1.25 K/uL (0.11-0.59); Monocytes % (auto) 9.5 %; Neutrophils # (auto) 7.93 K/uL (1.4-6.5); Neutrophils % (auto) 60.1 %; Platelet Count 357 K/uL (130-400); RDW Coefficient of Variation 13.3 % (11.5-14.5); RDW Standard Deviation 43.9 fL (36.4-46.3); Red Blood Count 3.33 M/uL (4.7-6.1); White Blood Count 13.19 K/uL (4.8-10.8)
[2019-12-24 22:15] LABS: Partial Thromboplastin Ratio 0.8; Prothrombin Time 10.3 Seconds (9.0-12.0)
[2019-12-24 22:20] LABS: Alanine Aminotransferase 15 U/L (12-78); Albumin Level 3.5 gm/dl (3.4-5.0); Aspartate Aminotransferase 15 U/L (15-37); BUN Creatinine Ratio 15.4 (10-20); Blood Urea Nitrogen 37 mg/dl (7-18); Calcium 8.8 mg/dl (8.5-10.1); Carbon Dioxide 19 mmol/L (21-32); Chloride 105 mmol/L (98-107); Creatinine Clr Calc Pharmacy 29.7 ml/min; Est GFR (Non-African American) 27.6; Glucose 107 mg/dl (70-99); Magnesium 2.3 mg/dl (1.8-2.4); Potassium 4.1 mmol/L (3.5-5.1); Sodium 134 mmol/L (136-145)
[2019-12-24] MEDS ORDERED: ALBUT/IPRATROP 3MG/0.5MG NEB 3 ML VIAL NEB STA (22:21)
[2019-12-24 22:25] LABS: Albumin Globulin Ratio 0.8 (0.9-2); Alkaline Phosphatase 93 U/L (45-117); Bilirubin,Total 0.3 mg/dl (0.2-1); Globulin 4.5 gm/dl (2.5-4.0); NT Pro B Type Natriuretic Pept 6077 pg/ml (0-900); Troponin I < 0.015 ng/ml (0-0.045)
[2019-12-24 22:50] LABS: Influenza A virus by PCR Neg for Influ A (Neg); Influenza B virus by PCR Neg for Influ B (Neg)
--- NOTE | 2019-12-24 23:38 | History & Physical Report ---
Date of Service December 24, 2019 Assessment & Plan (1) Acute respiratory failure with hypoxia: Acute respiratory failure with hypoxia/acute CHF with pulmonary edema- Continue on BiPAP for now, and try to titrate downward as situation improves. Present on Admission?: Yes (2) CAD (coronary artery disease): CAD/hypertension/flash pulmonary edema/cardiomyopathy/left bundle branch block/aortic regurgitation- The patient will be admitted to telemetry for serial cardiac enzymes, serial EKG's, cardiac rhythm monitoring and a 2-D echocardiogram with Dopplers. Continue amlodipine 10 mg p.o. daily, aspirin 81 mg daily, carvedilol 6.25 mg p.o. twice daily, clopidogrel 75 mg p.o. daily, isosorbide dinitrate 30 mg daily. Patient is responding to Lasix 60 mg IV in ED will continue at 40 mg IV every 8 hours, and follow laboratory serially Continue Nitropaste added onto isosorbide dinitrate for antianginal effect and to help with diuresis. Present on Admission?: Yes (3) Flash pulmonary edema: See above Present on Admission?: Yes (4) Cardiomyopathy: See above Present on Admission?: Yes (5) Left bundle branch block: Stable Present on Admission?: Yes (6) Aortic regurgitation: Will repeat echo Present on Admission?: Yes (7) Peripheral vascular disease: See above Present on Admission?: Yes (8) Hypertension: See above Present on Admission?: Yes (9) Acute kidney injury superimposed on chronic kidney disease: Creatinine 2.43, with range 2.05-2.54. Follow serially Present on Admission?: Yes (10) Hyperlipidemia: Continue atorvastatin 80 mg daily Present on Admission?: Yes History of Present Illness Chief Complaint: The patient presents to the ED with the acute onset of SOB at 8:00 this evening while lying down. Primary Care Provider: Carmen petit PA-C The patient is a 59yo male with PMH of CM, LBBB, AI, Hyponatremia, NSTEMI, CAD, HTN, HLD, PVD, and most recent admission for acute resp failure secondary to acute CHF from 11/30-12/03/19. He presents to the ED with similar symptoms of acute onset of SOB at 8:00 this evening. In the ED CXR was suggestive of CHF, and he did begin to respond to the Furosemide 60mg IV given by the ED, but kelley catheter did need to be placed due urinary retention. He also noes significant fatigue. Allergies Allergy/AdvReac Type Severity Reaction Status Date / Time No Known Allergies Allergy Unknown Verified 12/24/19 22:49 Home Medications Home Medications Medication Instructions Recorded Confirmed Type aspirin 81 mg PO DAILY 11/03/19 12/24/19 History amlodipine 10 mg PO DAILY 11/30/19 12/24/19 History atorvastatin 80 mg PO PM 11/30/19 12/24/19 History carvedilol 6.25 mg PO BID 11/30/19 12/24/19 History clopidogrel [Plavix] 75 mg PO DAILY 11/30/19 12/24/19 History pantoprazole 40 mg PO DAILY 11/30/19 12/24/19 History furosemide [Lasix] 20 mg PO Q OTHER DAY #5 tab 12/03/19 12/24/19 Rx isosorbide dinitrate 30 mg tablet 30 mg PO DAILY tab 12/10/19 12/24/19 History cholecalciferol (vitamin D3) 2,000 unit PO DAILY 12/24/19 12/24/19 History Past Med/Surg History Medical History CAD (coronary artery disease) COPD (chronic obstructive pulmonary disease) Hyperlipidemia Hypertension No pertinent past medical history Peripheral vascular disease Surgical History No pertinent past surgical history Social History Preferred Language: Nepali Communication Ability: Effective Building Performance Specialist Required: No Beliefs That Will Affect Care: None Current Living Situation: Alone Current Living Situation Comment: unknown pt intubated and sedated. no family present Feels Safe at Home: Yes Smoking Status: Former smoker Cigarettes Per Day: 10-15 ; Hx Alcohol Use: Yes Alcohol type: beer Hx Substance Use: No Review of Systems Review of Systems: The patient denies cough, lower extremity swelling, sore throat, fevers, chills, sweats, nausea, vomiting, diarrhea , constipation, abdominal pain, pelvic pain, blood in urine or stool, dysuria, urinary frequency or urgency, lightheadedness, dizziness, headache, memory loss, loss of consciousness, rash, abnormal bruising or bleeding, imbalance, focal or generalized weakness, numbness or tingling in arms or legs, generalized arthralgias or myalgias, back or neck pain, or night sweats. The review of systems is otherwise negative other than for that already noted above, and at least 10 systems have been reviewed. Physical Exam Physical Exam: The patient is awake, alert and oriented 3, well developed and well nourished, normocephalic and atraumatic, sitting upright in bed with BiPAP mask in place, and in mild respiratory distress. HEENT--PERRL, EOMI, mucous membranes and oropharynx normal. Neck--supple. No JVD. No bruits. Thyroid normal, trachea midline, no adenopathy. Heart--normal S1 and S2. No murmurs, rubs or gallops. Lungs--coarse breath sounds bilaterally but overall decreased throughout. Mild respiratory distress, no accessory muscle use. Abdomen--normal bowel sounds and soft. Nontender. Nondistended. Extremities--no cyanosis or clubbing. There is 1+ bilateral pretibial pitting edema. Dermatologic--normal skin turgor, normal color, no abnormal lymph nodes, no rash. Neurologic--cranial nerves II through XII grossly intact. Rheumatologic--normal range of motion. Psychiatric--normal affect. Results & Data Vital Signs (Past 12 Hours) Vital Signs Temp Pulse Pulse Resp BP Pulse Ox 12/24/19 23:15 77 21 112/70 100 12/24/19 23:00 79 23 121/63 100 12/24/19 22:45 86 28 H 115/74 100 12/24/19 22:40 90 30 H 99 12/24/19 22:30 151 H 37 H 145/73 H 95 12/24/19 22:15 114 H 33 H 167/88 H 94 12/24/19 22:10 115 H 28 H 88 L 12/24/19 22:01 117 H 27 H 90 12/24/19 22:00 121 H 39 H 164/84 H 91 12/24/19 21:52 108 H 29 H 164/82 H 92 12/24/19 21:44 116 H 27 H 96 12/24/19 21:39 118 H 32 H 90 12/24/19 21:35 124 H 20 170/94 H 97 12/24/19 21:24 97.5 F L 105 H 32 H 151/77 H 84 L Laboratory Results Laboratory Results WBC 13.19 K/uL (4.8-10.8) H 12/24/19 21:52 RBC 3.33 M/uL (4.7-6.1) L 12/24/19 21:52 Hgb 10.2 g/dL (14.0-18.0) L 12/24/19 21:52 Hct 30.2 % (42-52) L 12/24/19 21:52 MCV 90.7 fL (80-100) 12/24/19 21:52 MCH 30.6 pg (25-34) 12/24/19 21:52 MCHC 33.8 g/dL (32-36) 12/24/19 21:52 RDW Std Deviation 43.9 fL (36.4-46.3) 12/24/19 21:52 RDW Coeff of Monika 13.3 % (11.5-14.5) 12/24/19 21:52 Plt Count 357 K/uL (130-400) 12/24/19 21:52 MPV 9.6 fL (7.4-10.4) 12/24/19 21:52 Immature Gran % (Auto) 0.2 % 12/24/19 21:52 Neut % (Auto) 60.1 % 12/24/19 21:52 Lymph % (Auto) 25.5 % 12/24/19 21:52 Greene % (Auto) 9.5 % 12/24/19 21:52 Eos % (Auto) 3.8 % 12/24/19 21:52 Baso % (Auto) 0.9 % 12/24/19 21:52 Immature Gran # (Auto) 0.03 K/uL (0.00-0.02) H 12/24/19 21:52 Neut # (Auto) 7.93 K/uL (1.4-6.5) H 12/24/19 21:52 Lymph # (Auto) 3.36 K/uL (1.2-3.4) 12/24/19 21:52 Greene # (Auto) 1.25 K/uL (0.11-0.59) H 12/24/19 21:52 Eos # (Auto) 0.50 K/uL (0-0.5) 12/24/19 21:52 Baso # (Auto) 0.12 K/uL (0-0.2) 12/24/19 21:52 PT 10.3 Seconds (9.0-12.0) 12/24/19 21:52 INR 1.0 (0.9-1.1) 12/24/19 21:52 APTT 23.0 Seconds (21.0-31.0) 12/24/19 21:52 PTT Ratio 0.8 12/24/19 21:52 Sodium 134 mmol/L (136-145) L 12/24/19 21:52 Potassium 4.1 mmol/L (3.5-5.1) 12/24/19 21:52 Chloride 105 mmol/L (98-107) 12/24/19 21:52 Carbon Dioxide 19 mmol/L (21-32) L 12/24/19 21:52 Anion Gap 11.0 (3-11) 12/24/19 21:52 BUN 37 mg/dl (7-18) H 12/24/19 21:52 Creatinine 2.43 mg/dl (0.6-1.4) H 12/24/19 21:52 Est Cr Clr Drug Dosing 29.7 ml/min 12/24/19 21:52 Est GFR ( Amer) 32.0 12/24/19 21:52 Est GFR (Non-Af Amer) 27.6 12/24/19 21:52 BUN/Creatinine Ratio 15.4 (10-20) 12/24/19 21:52 Glucose 107 mg/dl (70-99) H 12/24/19 21:52 Calcium 8.8 mg/dl (8.5-10.1) 12/24/19 21:52 Magnesium 2.3 mg/dl (1.8-2.4) 12/24/19 21:52 Total Bilirubin 0.3 mg/dl (0.2-1) 12/24/19 21:52 AST 15 U/L (15-37) 12/24/19 21:52 ALT 15 U/L (12-78) 12/24/19 21:52 Alkaline Phosphatase 93 U/L (45-117) 12/24/19 21:52 Troponin I < 0.015 ng/ml (0-0.045) 12/24/19 21:52 NT-Pro-B Natriuret Pep 6077 pg/ml (0-900) H 12/24/19 21:52 Total Protein 8.0 gm/dl (6.4-8.2) 12/24/19 21:52 Albumin 3.5 gm/dl (3.4-5.0) 12/24/19 21:52 Globulin 4.5 gm/dl (2.5-4.0) H 12/24/19 21:52 Albumin/Globulin Ratio 0.8 (0.9-2) L 12/24/19 21:52 Influenza Type A (PCR) Neg for Influ A (Neg) 12/24/19 21:30 Influenza Type B (PCR) Neg for Influ B (Neg) 12/24/19 21:30 Diagnostic Findings [facility], [place] [phone] XRay Report Patient: JULIAN ARGUETA EAdmit Date: 12/24/19 MR#: [id number]: [address] [facility] [address] Acct ID:[id number]: Date: 1960[facility] [place] [id number] Age: 59Location: ED Sex: M Room/Bed: Att Phy:Diagnosis: FLUID IN LUNGS - CANT CATCH BREATH Tyesha Phy: Carmen Viramontes PA-CService Date: 12/24/19 Fam Phy:Interpreting Phy: Tyler Gresham MD Admit Phy: Ordering Phy: Tyler Baltazar M.D. cc: ~ SINGLE VIEW CHEST CLINICAL HISTORY: Dyspnea. FINDINGS: An AP, portable, upright chest radiograph is compared to study dated 11/24/2019 and correlated with chest CT dated 11/03/2019. The examination is degraded by portable technique and patient rotation. The heart is enlarged noting atherosclerotic calcification of the thoracic aorta. There is pulmonary vascular congestion with evidence of interstitial edema. Airspace opacities are noted in the lung bases. There are small layering pleural effusions. No pneumothorax is seen. The skeletal structures are osteopenic. The bony thorax is grossly intact. IMPRESSION: 1. Cardiomegaly with evidence of congestive failure and interstitial edema. 2. Small layering pleural effusions. 3. Bibasilar airspace opacities likely represent atelectasis/edema. Correlate clinically for evidence of superimposed pneumonia. ACT 112: Negative or not required by law. Electronically signed by: Tyler Gresham M.D. 12/24/2019 9:56 PM Dictated: 12/24/192154 Transcribed: 12/24/192154 Code Status & VTE Plan Code Status Full code VTE Prophylaxis Plan VTE Prophylaxis will be ordered: Yes PG Care Time/CCT Total # of Minutes Spent Total Time Spent with Patient: Total time spent is greater than 50% in coordination of care (as documented) at patient's floor/unit and/or counseling patient: Coding Level of Care Code 52143 Initial Inpt Care Lvl 3 Diagnoses Acute respiratory failure with hypoxia J96.01 CAD (coronary artery disease) I25.10 Flash pulmonary edema J81.0 Cardiomyopathy I42.9 Left bundle branch block I44.7 Aortic regurgitation I35.1 Peripheral vascular disease I73.9 Hypertension I10 Acute kidney injury superimposed on chronic kidney disease N17.9; N18.9 Hyperlipidemia E78.5
--- NOTE | 2019-12-25 00:55 | Emergency Department Note ---
Entered by Olga Loredo acting as a scribe for History of Present Illness General Chief complaint: Respiratory Problems Stated complaint: FLUID IN LUNGS - CANT CATCH BREATH Time Seen by Provider: 12/24/19 21:34 Source: patient History of Present Illness Onset (ago): minute(s) 30 Location: chest Severity: similar to prior episodes Pain Consistency: + other (persistent ) Maximum Pain Intensity: 9 Quality: + other (shortness of breath ) Associated symptoms: + cough The patient is a 59 year old male who presents to the Emergency Room with complaints of persistent shortness of breath that began at 2100, approximately 30 minutes prior to arrival. The patient states that he began to have a cough at this time as well. The patient states that he felt at his baseline the entire day until his symptoms began. The patient states that this is similar to prior episodes for him, stating that last time he was in the ED for similar symptoms he was told this was due to fluid buildup. The patient denies being on oxygen at home. He states that he has never had a COPD diagnosis. The patient reports that he recently quit smoking approximately 52 days ago. The patient's history and ROS are limited secondary to significant respiratory distress. Home Medications Home Medications Medication Instructions Recorded Confirmed Type aspirin 81 mg PO DAILY 11/03/19 12/24/19 History amlodipine 10 mg PO DAILY 11/30/19 12/24/19 History atorvastatin 80 mg PO PM 11/30/19 12/24/19 History carvedilol 6.25 mg PO BID 11/30/19 12/24/19 History clopidogrel [Plavix] 75 mg PO DAILY 11/30/19 12/24/19 History pantoprazole 40 mg PO DAILY 11/30/19 12/24/19 History furosemide [Lasix] 20 mg PO Q OTHER DAY #5 tab 12/03/19 12/24/19 Rx isosorbide dinitrate 30 mg tablet 30 mg PO DAILY tab 12/10/19 12/24/19 History cholecalciferol (vitamin D3) 2,000 unit PO DAILY 12/24/19 12/24/19 History Allergies Allergy/AdvReac Type Severity Reaction Status Date / Time No Known Allergies Allergy Unknown Verified 12/24/19 22:49 Past Med/Surg History Medical History CAD (coronary artery disease) COPD (chronic obstructive pulmonary disease) Hyperlipidemia Hypertension No pertinent past medical history Peripheral vascular disease Surgical History No pertinent past surgical history Social History Preferred Language: Mexican Communication Ability: Effective Mortgage Loan Assistant Required: No Beliefs That Will Affect Care: None Current Living Situation: Alone Current Living Situation Comment: unknown pt intubated and sedated. no family present Feels Safe at Home: Yes Smoking Status: Former smoker Tobacco Type: cigarettes ; Cigarettes Per Day: 10-15 ; Second Hand Exposure: No ; Hx Alcohol Use: Yes Alcohol type: beer Hx Substance Use: No Review of Systems The patient's history and ROS are limited secondary to significant respiratory distress. Physical Exam Vital Signs Vital Signs - 24 hr 12/24/19 21:21 12/24/19 21:24 12/24/19 21:35 Temperature 36.4 C L Temperature Source Oral Pulse Rate 105 H 124 H Pulse Rate [Left Finger] Pulse Rate from SpO2 Sensor 104 H Respiratory Rate 32 H 20 Respiratory Effort / Characteristics Spontaneous Labored Non-Labored Respiratory Depth Retractive Normal Respiratory Pattern Tachypnea Regular Blood Pressure 151/77 H 170/94 H Blood Pressure Mean 101 130 Pulse Oximetry 84 L 97 Oxygen Delivery Method Non-rebreather Room Air Oxygen Flow Rate Fraction of Inspired Oxygen Sepsis Recent Fever Within 48 Hours No Sepsis Action Taken by Nursing No Action Required Oxygen Flow Rate - Titration Pulse Oximetry Post Tiitration 12/24/19 21:39 12/24/19 21:44 12/24/19 21:52 Temperature Temperature Source Pulse Rate 118 H 116 H 108 H Pulse Rate [Left Finger] Pulse Rate from SpO2 Sensor 118 H 109 H Respiratory Rate 32 H 27 H 29 H Respiratory Effort / Characteristics Respiratory Depth Respiratory Pattern Blood Pressure 164/82 H Blood Pressure Mean 120 Pulse Oximetry 90 96 92 Oxygen Delivery Method Non-rebreather Oxygen Flow Rate 2 Fraction of Inspired Oxygen Sepsis Recent Fever Within 48 Hours Sepsis Action Taken by Nursing Oxygen Flow Rate - Titration 15 Pulse Oximetry Post Tiitration 90 12/24/19 22:00 12/24/19 22:01 12/24/19 22:10 Temperature Temperature Source Pulse Rate 121 H 117 H Pulse Rate [Left Finger] 115 H Pulse Rate from SpO2 Sensor 111 H 115 H Respiratory Rate 39 H 27 H 28 H Respiratory Effort / Characteristics Spontaneous Accessory Muscle Use Short of Breath Respiratory Depth Respiratory Pattern Blood Pressure 164/84 H Blood Pressure Mean 123 Pulse Oximetry 91 90 88 L Oxygen Delivery Method Non-rebreather Oxygen Flow Rate 16 Fraction of Inspired Oxygen 100 Sepsis Recent Fever Within 48 Hours Sepsis Action Taken by Nursing Oxygen Flow Rate - Titration Pulse Oximetry Post Tiitration 12/24/19 22:15 12/24/19 22:30 12/24/19 22:40 Temperature Temperature Source Pulse Rate 114 H 151 H Pulse Rate [Left Finger] 90 Pulse Rate from SpO2 Sensor 114 H 101 H Respiratory Rate 33 H 37 H 30 H Respiratory Effort / Characteristics Spontaneous Accessory Muscle Use Short of Breath Spontaneous Short of Breath Respiratory Depth Normal Respiratory Pattern Tachypnea Blood Pressure 167/88 H 145/73 H Blood Pressure Mean 119 99 Pulse Oximetry 94 95 99 Oxygen Delivery Method BiPAP Oxygen Flow Rate Fraction of Inspired Oxygen 100 100 Sepsis Recent Fever Within 48 Hours Sepsis Action Taken by Nursing Oxygen Flow Rate - Titration Pulse Oximetry Post Tiitration 12/24/19 22:45 12/24/19 23:00 12/24/19 23:15 Temperature Temperature Source Pulse Rate 86 79 77 Pulse Rate [Left Finger] Pulse Rate from SpO2 Sensor 88 82 76 Respiratory Rate 28 H 23 21 Respiratory Effort / Characteristics Respiratory Depth Respiratory Pattern Blood Pressure 115/74 121/63 112/70 Blood Pressure Mean 78 74 75 Pulse Oximetry 100 100 100 Oxygen Delivery Method Oxygen Flow Rate Fraction of Inspired Oxygen Sepsis Recent Fever Within 48 Hours Sepsis Action Taken by Nursing Oxygen Flow Rate - Titration Pulse Oximetry Post Tiitration GENERAL: Patient is in significant respiratory distress. HEENT: No acute trauma, normocephalic atraumatic, mucous membranes moist, no nasal congestion, no scleral icterus. NECK: No stridor, no adenopathy, no meningismus, trachea is midline. LUNGS: Significant respiratory distress. Wheezing and rhonchi at the bilateral bases. Diminished breath sounds bilaterally. Increased respiratory rate. HEART: Tachycardic. Regular rhythm. No murmurs. ABDOMEN: Soft, nontender, bowel sounds positive, no hernias, no peritonitis. EXTREMITIES: Mild edema. No cyanosis, full range of motion of all the joints without pain or difficulty, no signs for acute trauma. NEUROLOGIC: Oriented x 3, no acute motor or sensory deficits, no focal weakness. SKIN: No rash, no jaundice, no diaphoresis. Course Course 2133: Past medical records reviewed. The patient was evaluated in room A9B. A complete history and physical exam was performed. 2219: Upon reevaluation, the patient is currently being placed on Bipap. 2247: The patient's condition is improving with the use of Bipap. 2258: I discussed the case with Dr. Thomas-[facility] Hospitalist who accepts the patient for further evaluation. 2301: The patient's condition is continuing to improve on Bipap. Administered Medications Carvedilol (Coreg) 6.25 mg PO BID GILBERT Stop: 01/24/20 01:14 Last Admin: 12/25/19 01:52 Dose: 6.25 mg Documented by: [id number] Discontinued Medications Albuterol (Duoneb) 3 ml INH NOW STA Stop: 12/24/19 21:39 Last Admin: 12/24/19 22:10 Dose: 3 ml Documented by: [id number] Albuterol (Duoneb) 3 ml NEB NOW STA Stop: 12/24/19 22:22 Last Admin: 12/24/19 22:27 Dose: 3 ml Documented by: [id number] Furosemide (Lasix) 60 mg IV NOW STA Stop: 12/24/19 21:42 Last Admin: 12/24/19 21:55 Dose: 60 mg Documented by: [id number] Lorazepam (Ativan) 1 mg in 2 mls @ 2 mls/min IV NOW STA Stop: 12/24/19 21:46 Last Admin: 12/24/19 22:15 Dose: 2 mls/min Documented by: [id number] Nitroglycerin (Nitro-Bid 2%) Confirm Administered Dose 54 inch .ROUTE .STK-MED ONE Stop: 12/24/19 21:39 Last Admin: 12/24/19 21:55 Dose: 2 inch Documented by: [id number] Nitroglycerin (Nitro-Bid 2%) 1 inch EXT Q6 GILBERT Stop: 01/24/20 01:14 Last Admin: 12/25/19 01:52 Dose: 1 inch Documented by: [id number] Ondansetron HCl (Zofran) 4 mg IV NOW STA Stop: 12/24/19 21:45 Last Admin: 12/24/19 21:55 Dose: 4 mg Documented by: [id number] Critical Care Time Critical Care Time: Yes Total Critical Care Time: 46 I have personally spent 46 minutes of critical care time in the direct management of this patient. This includes bedside care, interpretation of diagnostic studies, and testing, discussion with consultants, patient, and family members, and other required patient management activities. This 46 minutes is in excess of all separately billable procedures. Medical Decision Making Differential Diagnosis Differential diagnoses include CHF, exacerbation of COPD, pneumonia, pneumothorax, anemia, electrolyte imbalance, renal failure, influenza, OR, and others were considered. Medical Records Attestation: I reviewed the patient's medical records. Home Medications Current Medication List: was personally reviewed by me Laboratory Data Attestation: I reviewed the patient's lab results. Result diagrams: 12/24/19 21:52 12/24/19 21:52 Lab Results 12/24/19 12/24/19 12/24/19 Range/Units 21:30 21:52 21:52 WBC 13.19 H (4.8-10.8) K/uL RBC 3.33 L (4.7-6.1) M/uL Hgb 10.2 L (14.0-18.0) g/dL Hct 30.2 L (42-52) % MCV 90.7 (80-100) fL MCH 30.6 (25-34) pg MCHC 33.8 (32-36) g/dL RDW Std Deviation 43.9 (36.4-46.3) fL RDW Coeff of Monika 13.3 (11.5-14.5) % Plt Count 357 (130-400) K/uL MPV 9.6 (7.4-10.4) fL Immature Gran % (Auto) 0.2 % Neut % (Auto) 60.1 % Lymph % (Auto) 25.5 % [place] % (Auto) 9.5 % Eos % (Auto) 3.8 % Baso % (Auto) 0.9 % Immature Gran # (Auto) 0.03 H (0.00-0.02) K/uL Neut # (Auto) 7.93 H (1.4-6.5) K/uL Lymph # (Auto) 3.36 (1.2-3.4) K/uL [place] # (Auto) 1.25 H (0.11-0.59) K/uL Eos # (Auto) 0.50 (0-0.5) K/uL Baso # (Auto) 0.12 (0-0.2) K/uL PT (9.0-12.0) Seconds INR (0.9-1.1) APTT (21.0-31.0) Seconds PTT Ratio Sodium 134 L (136-145) mmol/L Potassium 4.1 (3.5-5.1) mmol/L Chloride 105 (98-107) mmol/L Carbon Dioxide 19 L (21-32) mmol/L Anion Gap 11.0 (3-11) BUN 37 H (7-18) mg/dl Creatinine 2.43 H (0.6-1.4) mg/dl Est Cr Clr Drug Dosing 29.7 ml/min Est GFR ( Amer) 32.0 Est GFR (Non-Af Amer) 27.6 BUN/Creatinine Ratio 15.4 (10-20) Glucose 107 H (70-99) mg/dl Calcium 8.8 (8.5-10.1) mg/dl Magnesium 2.3 (1.8-2.4) mg/dl Total Bilirubin 0.3 (0.2-1) mg/dl AST 15 (15-37) U/L ALT 15 (12-78) U/L Alkaline Phosphatase 93 (45-117) U/L Troponin I < 0.015 (0-0.045) ng/ml NT-Pro-B Natriuret Pep 6077 H (0-900) pg/ml Total Protein 8.0 (6.4-8.2) gm/dl Albumin 3.5 (3.4-5.0) gm/dl Globulin 4.5 H (2.5-4.0) gm/dl Albumin/Globulin Ratio 0.8 L (0.9-2) Influenza Type A (PCR) Neg for Influ A (Neg) Influenza Type B (PCR) Neg for Influ B (Neg) 12/24/19 Range/Units 21:52 WBC (4.8-10.8) K/uL RBC (4.7-6.1) M/uL Hgb (14.0-18.0) g/dL Hct (42-52) % MCV (80-100) fL MCH (25-34) pg MCHC (32-36) g/dL RDW Std Deviation (36.4-46.3) fL RDW Coeff of Monika (11.5-14.5) % Plt Count (130-400) K/uL MPV (7.4-10.4) fL Immature Gran % (Auto) % Neut % (Auto) % Lymph % (Auto) % [place] % (Auto) % Eos % (Auto) % Baso % (Auto) % Immature Gran # (Auto) (0.00-0.02) K/uL Neut # (Auto) (1.4-6.5) K/uL Lymph # (Auto) (1.2-3.4) K/uL [place] # (Auto) (0.11-0.59) K/uL Eos # (Auto) (0-0.5) K/uL Baso # (Auto) (0-0.2) K/uL PT 10.3 (9.0-12.0) Seconds INR 1.0 (0.9-1.1) APTT 23.0 (21.0-31.0) Seconds PTT Ratio 0.8 Sodium (136-145) mmol/L Potassium (3.5-5.1) mmol/L Chloride (98-107) mmol/L Carbon Dioxide (21-32) mmol/L Anion Gap (3-11) BUN (7-18) mg/dl Creatinine (0.6-1.4) mg/dl Est Cr Clr Drug Dosing ml/min Est GFR ( Amer) Est GFR (Non-Af Amer) BUN/Creatinine Ratio (10-20) Glucose (70-99) mg/dl Calcium (8.5-10.1) mg/dl Magnesium (1.8-2.4) mg/dl Total Bilirubin (0.2-1) mg/dl AST (15-37) U/L ALT (12-78) U/L Alkaline Phosphatase (45-117) U/L Troponin I (0-0.045) ng/ml NT-Pro-B Natriuret Pep (0-900) pg/ml Total Protein (6.4-8.2) gm/dl Albumin (3.4-5.0) gm/dl Globulin (2.5-4.0) gm/dl Albumin/Globulin Ratio (0.9-2) Influenza Type A (PCR) (Neg) Influenza Type B (PCR) (Neg) Imaging Data Radiologist's Impression: Radiology results as stated below per my review and the radiologist's interpretation: SINGLE VIEW CHEST CLINICAL HISTORY: Dyspnea. FINDINGS: An AP, portable, upright chest radiograph is compared to study dated 11/24/2019 and correlated with chest CT dated 11/03/2019. The examination is degraded by portable technique and patient rotation. The heart is enlarged noting atherosclerotic calcification of the thoracic aorta. There is pulmonary vascular congestion with evidence of interstitial edema. Airspace opacities are noted in the lung bases. There are small layering pleural effusions. No pneumothorax is seen. The skeletal structures are osteopenic. The bony thorax is grossly intact. IMPRESSION: 1. Cardiomegaly with evidence of congestive failure and interstitial edema. 2. Small layering pleural effusions. 3. Bibasilar airspace opacities likely represent atelectasis/edema. Correlate clinically for evidence of superimposed pneumonia. ACT 112: Negative or not required by law. Electronically signed by: Tyler Gresham M.D. 12/24/2019 9:56 PM ECG Data Attestation: I personally reviewed and interpreted this ECG as follows: Indication: + SOB/dyspnea Rate (beats per minute): 106 Rhythm: + sinus tachycardia ECG Intervals/blocks: + Left bundle branch block and + Prolonged QT (512 ) ECG ST segments: no ST elevation ECG Findings: + Other (baseline artifact ); no PVCs Comparison ECG Date: from (12/02/19) Change: no significant change (rate increased today; more artifact today) Blood Pressure Blood Pressure Findings: Elevated blood pressure Blood Pressure Disposition: further management by hospitalist [facility] Narrative There is a mild leukocytosis, this could be consistent with infection or his respiratory distress. A mild anemia was noted with a hemoglobin of 10.2. The anemia finding is baseline. There was no coagulopathy. Creatinine was elevated but this is baseline. No significant electrolyte abnormality requiring correction. No concerning liver enzyme elevation. BNP was elevated consistent with fluid overload. EKG showed a sinus tachycardia with a left bundle branch block, there was no acute ischemia. Cardiac enzyme testing x1 is not consistent with acute cardiac injury. Chest film does suggest CHF, no pneumothorax, no pneumonia. Influenza testing was negative. The patient was in respiratory distress. He was aggressively managed. He received O2 supplementation. He was given nitroglycerin paste, IV Lasix. He was given a DuoNeb, the patient was eventually placed on BiPAP and then was given a second DuoNeb. He did receive IV Ativan for anxiety. He was given IV Zofran for nausea. The patient has made some improvement in his breathing with the above treatment. He is in need of a hospital stay. I spoke to the patient and case management, the on-call hospitalist has been consulted. I do think the pulmonary edema led to his sudden respiratory distress. Continuous Cardiac Monitoring: An order was placed for continuous cardiac monitoring. The monitor shows a rate of 115 with sinus tachycardia. Impression & Plan Respiratory distress, Hypoxia, Pulmonary edema, Wheezing Discharge Plan Visit Data *Final* Discharge Date/Time: 12/25/19 00:28 Chief Complaint: Respiratory Problems Stated Complaint: FLUID IN LUNGS - CANT CATCH BREATH ED Provider: Tyler Baltazar Discharge Problem: Respiratory distress, Hypoxia, Pulmonary edema, Wheezing Patient Disposition: Admitted As Inpatient Discharge Instructions Interventions: ED Discharge Assessment Last Done: 12/25/19 00:28 Discharge Problem: Pulmonary edema Qualifiers: Chronicity: acute Qualified Code(s): J81.0 - Acute pulmonary edema The scribe's documentation has been prepared under my direction and personally reviewed by me in its entirety. I confirm that the note above accurately refle cts all work, treatment, procedures, and medical decision making performed by me.
[2019-12-25] MEDS ORDERED: POLYETHYLENE (MIRALAX) 17 GM PACK PO PRN (01:15)
[2019-12-25] MEDS ORDERED: carvediloL 6.25 MG TAB PO ONE (01:15)
[2019-12-25] MEDS ORDERED: ACETAMINOPHEN 325 MG TAB PO PRN (01:15)
[2019-12-25] MEDS ORDERED: ONDANSETRON INJ 2 MG/ML 2 ML VIAL IV PRN (01:15)
[2019-12-25] MEDS ORDERED: ALUMINUM/MAGNESIUM SUSP 30 ML UDC PO PRN (01:15)
[2019-12-25] MEDS ORDERED: MAGNESIUM HYDROXIDE SUSP 30 ML UDC PO PRN (01:15)
[2019-12-25] MEDS ORDERED: NITROGLYCERIN 2% OINTMENT 30GM TUBE EXT SCH (01:15)
[2019-12-25] MEDS ORDERED: MoRPHine SULFATE 2 MG/ML CARP IV PRN (01:15)
[2019-12-25] MEDS: carvediloL 6.25 MG TAB PO SCH ×3 (01:52→20:29)
[2019-12-25 06:02] LABS: Basophils # (auto) 0.04 K/uL (0-0.2); Basophils % (auto) 0.5 %; Eosinophils # (auto) 0.09 K/uL (0-0.5); Hematocrit (blood only) 25.6 % (42-52); Hemoglobin 8.5 g/dL (14.0-18.0); Immature Granulocytes # (auto) 0.01 K/uL (0.00-0.02); Immature Granulocytes % (auto) 0.1 %; Lymphocytes # (auto) 1.49 K/uL (1.2-3.4); Lymphocytes % (auto) 17.4 %; Mean Corpuscular Hemoglobin 30.1 pg (25-34); Mean Corpuscular Hgb Conc 33.2 g/dL (32-36); Mean Corpuscular Volume 90.8 fL (80-100); Mean Platelet Volume 9.3 fL (7.4-10.4); Monocytes # (auto) 0.97 K/uL (0.11-0.59); Monocytes % (auto) 11.3 %; Neutrophils # (auto) 5.98 K/uL (1.4-6.5); Neutrophils % (auto) 69.7 %; Platelet Count 258 K/uL (130-400); RDW Coefficient of Variation 13.3 % (11.5-14.5); RDW Standard Deviation 44.2 fL (36.4-46.3); Red Blood Count 2.82 M/uL (4.7-6.1); White Blood Count 8.58 K/uL (4.8-10.8)
[2019-12-25 06:13] LABS: Prothrombin Time 10.6 Seconds (9.0-12.0)
[2019-12-25 06:33] LABS: BUN Creatinine Ratio 15.7 (10-20); Calcium 8.5 mg/dl (8.5-10.1); Est GFR (Non-African American) 26.7; Potassium 4.4 mmol/L (3.5-5.1)
[2019-12-25 06:34] LABS: Phosphorus 4.4 mg/dl (2.5-4.9)
[2019-12-25] MEDS: NITROGLYCERIN 2% OINTMENT 30GM TUBE EXT SCH ×3 (07:45→20:25)
[2019-12-25] MEDS: CHOLECALCIFEROL 1,000 UNITS 25 MCG TAB PO SCH (07:46)
[2019-12-25] MEDS: ASPIRIN 81 MG ECTAB PO SCH (07:47)
[2019-12-25] MEDS: PANTOprazole 40 MG TAB PO SCH (07:47)
[2019-12-25] MEDS: ISOSORBIDE MONO EXTENDED REL 30 MG TABCR PO SCH (07:47)
[2019-12-25] MEDS: AMLODIPINE BESYLATE 5 MG TAB PO SCH (07:47)
[2019-12-25] MEDS: CLOPIDOGREL BISULFATE 75 MG TAB PO SCH (07:48)
[2019-12-25] MEDS: NICOTINE 7 MG/24 HR TDSY TD SCH (07:48)
[2019-12-25] MEDS: FUROSEMIDE 40 MG in SYRINGE 0 ML IV SCH ×2 (07:50→17:12)
[2019-12-25] MEDS: HEPARIN SOD 5,000 UNIT/0.5 ML VIAL SQ SCH ×2 (07:51→20:30)
[2019-12-25] MEDS ORDERED: FUROSEMIDE 20 MG TAB PO SCH (09:00)
--- NOTE | 2019-12-25 11:03 | Cardiology Consultation ---
Date of Consultation December 25, 2019 Assessment & Plan (1) Acute on chronic heart failure with reduced ejection fraction and diastolic dysfunction: (2) Cardiorenal syndrome: (3) Ischemic cardiomyopathy: (4) Elevated troponin I level: (5) Aortic regurgitation: Complex 59-year-old patient admitted with acute decompensated heart failure secondary to systolic dysfunction. Per history, patient has gained weight slowly over the past 3 weeks. Most recent dry weight approximately 135 pounds. Continue IV diuretic therapy with close attention to fluid balance, daily weight, electrolytes, and GFR. Mildly elevated troponin secondary to acute decompensated heart failure. Coronary anatomy recently defined for cardiac catheterization with intervention to left anterior descending artery. Current symptoms were not consistent with acute stent thrombosis. Patient will require titration of diuretic therapy in the outpatient setting to maintain euvolemia. Likely will transition Lasix to 20 mg daily. Continue topical nitrates for afterload reduction currently. Continue dual antiplatelet therapy for minimum of 6 months post drug-eluting stent implantation. Subcutaneous heparin ordered for DVT prophylaxis. No indication for intravenous anticoagulation at this time. I will continue to follow patient during hospitalization. Thank you for allowing to participate in the care of your patient. History of Present Illness Reason for Consultation: Congestive heart failure Requesting Physician: Dr. Hampton Attending Physician: Michael Hampton MD History of Present Illness 59-year-old patient admitted with acute shortness of breath. Patient recently transitioned his cardiovascular care from [facility] to [facility]. Complex cardiovascular medical history listed below. Patient describes acute onset of shortness of breath last evening while watching television. Assess his daily weight. Dry weight at time of most recent hospital discharge was 135 pounds. His weight has slowly trended upward to 141 pounds per his home scale. Patient treated with intravenous diuretic therapy and BiPAP overnight. He has improved clinically. Currently lying flat without dyspnea. No peripheral edema, PND, or orthopnea. Denies palpitations, lightheadedness, dizziness, syncope, or near syncope. Denies chest pain or heaviness. Mildly elevated troponin noted. Denies any fever, chills, dysuria, or sick contacts. Influenza screen is negative. 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 Patient is followed by the [facility]. Cardiac catheterization report summary 11/07/2019: The proximal LAD had a 70% lesion s/p PCI with a 2.75 x 16 mm synergy MARY.The mid LAD had a 95% calcified stenosis s/p PCI with a 2.5 x 20 mm synergy MARY and a 2.5 x 8 mm synergy MARY.The 2nd marginal had a 40% stenosis.The medium sized RCA had a chronic total occlusion. Cardiovascular medical history: 1. ASCVD, ischemic cardiomyopathy, ejection fraction 35% 2. Chronic RCA occlusion 3. Status post PCI to the proximal and mid LAD with 3 drug-eluting stents. Residual 40% 2nd obtuse marginal stenosis. 4. [place] heart Association class 3 dyspnea 5. Left bundle branch block 6. Valvular heart disease, mixed aortic valve disease, mitral regurgitation 7. Hyponatremia 8. Peripheral vascular disease with bilateral carotid bruits bilateral SFA occlusions, history of presumed right fem-pop bypass, right 5th toe amputation, aortobifemoral bypass in 2003, prior right iliofemoral bypass. 9. 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 Stage 3 to 4 chronic kidney disease 12. Hypertension 13. Dyslipidemia 14. Tobacco abuse 15. Impotence 16. Osteoarthritis Allergies Allergy/AdvReac Type Severity Reaction Status Date / Time No Known Allergies Allergy Unknown Verified 12/24/19 22:49 Home Medications Home Medications Medication Instructions Recorded Confirmed Type aspirin 81 mg PO DAILY 11/03/19 12/24/19 History amlodipine 10 mg PO DAILY 11/30/19 12/24/19 History atorvastatin 80 mg PO PM 11/30/19 12/24/19 History carvedilol 6.25 mg PO BID 11/30/19 12/24/19 History clopidogrel [Plavix] 75 mg PO DAILY 11/30/19 12/24/19 History pantoprazole 40 mg PO DAILY 11/30/19 12/24/19 History furosemide [Lasix] 20 mg PO Q OTHER DAY #5 tab 12/03/19 12/24/19 Rx isosorbide dinitrate 30 mg tablet 30 mg PO DAILY tab 12/10/19 12/24/19 History cholecalciferol (vitamin D3) 2,000 unit PO DAILY 12/24/19 12/24/19 History Patient History Medical History CAD (coronary artery disease) COPD (chronic obstructive pulmonary disease) Hyperlipidemia Hypertension No pertinent past medical history Peripheral vascular disease Surgical History No pertinent past surgical history Social History Preferred Language: Iraqi Communication Ability: Effective Malted Milk Mixer Required: No Beliefs That Will Affect Care: None Current Living Situation: Alone Current Living Situation Comment: unknown pt intubated and sedated. no family present Feels Safe at Home: Yes Smoking Status: Former smoker Tobacco Type: cigarettes ; Cigarettes Per Day: 10-15 ; Second Hand Exposure: No ; Hx Alcohol Use: Yes Alcohol type: beer Hx Substance Use: No Review of Systems Review of Systems: All systems reviewed & are unremarkable except as noted in HPI & below Physical Exam Constitutional: well developed and well nourished; no acute distress Respiratory: normal respiratory effort; no respiratory distress, no labored breathing, no retractions and does not use accessory muscles Auscultation: + diminished lung sounds (Bases bilaterally) and + rales (Bases bilaterally); no rhonchi and no wheezes Cardiovascular: Rate/Rhythm: regular rate and regular rhythm Heart Sounds: normal S1 and normal S2; no gallop, no murmur and no cardiac rub Palpation: normal PMI Vessels: radial pulses present; no JVD Extremities: no edema Gastrointestinal (Abdomen): Inspection/Auscultation: abdomen normal to inspection and normal bowel sounds; abdomen not distended Percussion/Palpation: abdomen soft; abdomen nontender, no guarding and abdomen not rigid Musculoskeletal: no cyanosis or clubbing, extremities motor strength 5/5 Skin: no rashes, warm and dry Neurologic: moves all extremities; no focal motor deficits Psychiatric: A+Ox3, euthymic affect Results & Data ([facility]) Vital Signs (Past 12 Hours) Vital Signs Temp Pulse Pulse Resp BP BP Pulse Ox 12/25/19 08:16 69 12/25/19 07:23 36.4 C L 70 20 134/72 93 12/25/19 03:34 36.7 C 88 18 127/72 97 12/25/19 00:35 36.6 C 74 22 150/80 H 99 12/25/19 00:25 74 25 H 99 12/25/19 00:15 104 H 25 H 110/80 100 12/25/19 00:00 74 20 108/59 L 100 12/24/19 23:46 77 22 128/86 100 12/24/19 23:30 71 19 122/70 100 12/24/19 23:15 77 21 112/70 100 12/24/19 23:00 79 23 121/63 100 (1) Aortic regurgitation Cardiac valve disease etiology: nonrheumatic Qualified Code(s): I35.1 - Nonrheumatic aortic (valve) insufficiency
--- NOTE | 2019-12-25 15:25 | Hospitalist Progress Note ---
Date of Service December 25, 2019 Assessment & Plan (1) Acute on chronic systolic (congestive) heart failure: EF is 35-40% on echo in 11/2019. Baseline weight is ~135 lbs on patient's home scale. Over the last few weeks, he has climbed to 141.6 lbs. He has also had gradually increasing dyspnea on exertion and orthopnea. - Continue Lasix IV - Monitor I&Os; daily weights - Supplemental O2 PRN (2) CAD (coronary artery disease): S/p 1 MARY to proximal LAD (70%) and 2 MARY to the mid-LAD (95% lesion) on 11/07/2019. RCA was completely occluded, but appeared chronic and no intervention done. No chest pain presently. - Continue ASA, Plavix, beta-feli, Imdur, statin (3) Left bundle branch block: Stable. - No issues inpatient (4) Aortic regurgitation: Noted on prior echo. I do not believe this is acutely contributing to his hospitalization. - Follow up echo. (5) Hypertension: BP presently 130/70. - Continue home meds: amlodipine, beta-feli, and Imdur (6) DVT prophylaxis: Heparin 5000 units SQ Q12h Admission and Anticipated Discharge Date Admission Date: December 24, 2019 Subjective Feels better already after a few doses of Lasix. Less shortness of breath. Reports no fevers/chills, chest pain, abdominal pain, nausea, or vomiting. Physical Exam Constitutional: WD/WN, vitals as above Eyes: EOM intact bilaterally; no conjunctival abnormality ENMT: external ear and nose normal, oropharynx normal Neck: trachea midline, no thyromegaly normal visual inspection Respiratory: normal respiratory effort, lungs clear to auscultation no respiratory distress Cardiovascular: RRR, no murmur, no edema Gastrointestinal (Abdomen): Inspection/Auscultation: abdomen normal to inspe ction; abdomen not distended Musculoskeletal: no cyanosis or clubbing, extremities motor strength 5/5 Skin: no rashes, warm and dry Neurologic: moves all extremities and awake Psychiatric: Orientation: alert, oriented to person and cooperative Results & Data ([facility]) Vital Signs (Past 12 Hours) Vital Signs Temp Pulse Pulse Resp BP Pulse Ox 12/25/19 11:11 36.8 C 98 H 20 120/52 L 95 12/25/19 08:16 69 12/25/19 07:23 36.4 C L 70 20 134/72 93 12/25/19 03:34 36.7 C 88 18 127/72 97 PG Care Time/CCT Total # of Minutes Spent Total Time Spent with Patient: Total time spent is greater than 50% in coordination of care (as documented) at patient's floor/unit and/or counseling patient: Coding Level of Care Code 77463 Subseq Hosp Care Lvl 3 Diagnoses Acute on chronic systolic (congestive) heart failure I50.23 CAD (coronary artery disease) I25.10 Left bundle branch block I44.7 Aortic regurgitation I35.1 Cardiac valve disease etiology: nonrheumatic Hypertension I10 DVT prophylaxis Z29.9 (1) Aortic regurgitation Cardiac valve disease etiology: nonrheumatic Qualified Code(s): I35.1 - Nonrheumatic aortic (valve) insufficiency
--- NOTE | 2019-12-25 19:51 | XCELERA ---
[id number] \\[id number]
[2019-12-25] MEDS: ATORVASTATIN 40 MG TAB PO SCH (20:29)
--- NOTE | 2019-12-25 22:27 | Electrocardiogram Report ---
Test Reason : Blood Pressure : / mmHG Vent. Rate : 098 BPM Atrial Rate : 098 BPM P-R Int : 134 ms QRS Dur : 142 ms QT Int : 412 ms P-R-T Axes : 058 -21 078 degrees QTc Int : 525 ms Normal sinus rhythm Possible Left atrial enlargement Left bundle branch block Abnormal ECG When compared with ECG of 02-DEC-2019 06:43, Vent. rate has increased BY 37 BPM T wave amplitude has increased in Inferior leads Confirmed by Jean-Claude Payton ([id number]) on 12/25/2019 10:27:52 PM Referred By: REFERRED SELF Confirmed By:Jean-Claude Payton
--- NOTE | 2019-12-25 22:41 | Electrocardiogram Report ---
Test Reason : Blood Pressure : / mmHG Vent. Rate : 072 BPM Atrial Rate : 072 BPM P-R Int : 138 ms QRS Dur : 144 ms QT Int : 458 ms P-R-T Axes : 055 -33 074 degrees QTc Int : 501 ms Normal sinus rhythm Possible Left atrial enlargement Left axis deviation Left bundle branch block Abnormal ECG When compared with ECG of 24-DEC-2019 22:35, No significant change was found Confirmed by Jean-Claude Payton ([id number]) on 12/25/2019 10:42:06 PM Referred By: REFERRED SELF Confirmed By:Jean-Claude Payton
[2019-12-26] MEDS: FUROSEMIDE 40 MG in SYRINGE 0 ML IV SCH (00:40)
[2019-12-26] MEDS: NITROGLYCERIN 2% OINTMENT 30GM TUBE EXT SCH ×2 (02:03→08:19)
[2019-12-26 05:59] LABS: Basophils # (auto) 0.05 K/uL (0-0.2); Basophils % (auto) 0.8 %; Eosinophils # (auto) 0.58 K/uL (0-0.5); Eosinophils % (auto) 9.2 %; Hematocrit (blood only) 25.9 % (42-52); Hemoglobin 8.7 g/dL (14.0-18.0); Immature Granulocytes # (auto) 0.01 K/uL (0.00-0.02); Immature Granulocytes % (auto) 0.2 %; Lymphocytes # (auto) 2.45 K/uL (1.2-3.4); Lymphocytes % (auto) 38.8 %; Mean Corpuscular Hemoglobin 30.2 pg (25-34); Mean Corpuscular Hgb Conc 33.6 g/dL (32-36); Mean Corpuscular Volume 89.9 fL (80-100); Mean Platelet Volume 9.9 fL (7.4-10.4); Monocytes # (auto) 0.71 K/uL (0.11-0.59); Monocytes % (auto) 11.3 %; Neutrophils # (auto) 2.51 K/uL (1.4-6.5); Neutrophils % (auto) 39.7 %; Platelet Count 265 K/uL (130-400); RDW Coefficient of Variation 13.4 % (11.5-14.5); RDW Standard Deviation 44.2 fL (36.4-46.3); Red Blood Count 2.88 M/uL (4.7-6.1); White Blood Count 6.31 K/uL (4.8-10.8)
[2019-12-26 06:24] LABS: Prothrombin Time 10.5 Seconds (9.0-12.0)
[2019-12-26 06:39] LABS: Albumin Level 3.1 gm/dl (3.4-5.0); BUN Creatinine Ratio 15.7 (10-20); Calcium 8.7 mg/dl (8.5-10.1); Creatinine Clr Calc Pharmacy 23.6 ml/min; Est GFR (Non-African American) 23.3; Phosphorus 4.1 mg/dl (2.5-4.9); Potassium 3.6 mmol/L (3.5-5.1)
[2019-12-26] MEDS: carvediloL 6.25 MG TAB PO SCH ×2 (08:05→20:39)
[2019-12-26] MEDS: CLOPIDOGREL BISULFATE 75 MG TAB PO SCH (08:05)
[2019-12-26] MEDS: ASPIRIN 81 MG ECTAB PO SCH (08:06)
[2019-12-26] MEDS: CHOLECALCIFEROL 1,000 UNITS 25 MCG TAB PO SCH (08:06)
[2019-12-26] MEDS: AMLODIPINE BESYLATE 5 MG TAB PO SCH (08:06)
[2019-12-26] MEDS: PANTOprazole 40 MG TAB PO SCH (08:06)
[2019-12-26] MEDS: ISOSORBIDE MONO EXTENDED REL 30 MG TABCR PO SCH (08:06)
[2019-12-26] MEDS: NICOTINE 7 MG/24 HR TDSY TD SCH (08:06)
[2019-12-26] MEDS: HEPARIN SOD 5,000 UNIT/0.5 ML VIAL SQ SCH ×2 (08:07→20:40)
--- NOTE | 2019-12-26 11:06 | Cardiology Progress Note ---
Date of Service December 26, 2019 Assessment & Plan (1) Acute on chronic heart failure with reduced ejection fraction and diastolic dysfunction: (2) Cardiorenal syndrome: (3) Ischemic cardiomyopathy: (4) Elevated troponin I level: (5) Aortic regurgitation: Volume status improved with IV diuretic therapy. Weight down to 135 pounds which is patient's dry weight. Creatinine trending upward to 2.8 today. Unfortunately, management of volume status has been challenging due to cardiorenal syndrome. Patient instructed to take additional Lasix if weight increases more than 2 pounds in 1 week. Recommend holding diuretic therapy for an additional 24 hours. Restart Lasix on a daily basis in the outpatient setting Sunday. Previously taking Lasix every other day. Close outpatient cardiology CHF clinic follow-up in 1 week with repeat basic metabolic panel. Continue other cardiovascular medications as previously ordered. Subjective Patient seen and examined the bedside. Weight is down to 135 pounds which appears to be his outpatient dry weight. Ambulating in the halls with mild dyspnea. Notes mild headache this morning as well. No orthopnea or PND. No dysrhythmias on telemetry. Denies chest pain, lightheadedness, dizziness, syncope, or near syncope. Review of Systems Review of Systems: All systems reviewed & are unremarkable except as noted in HPI & below Physical Exam Constitutional: well developed and well nourished; no acute distress Respiratory: normal respiratory effort; no respiratory distress, no labored breathing, no retractions and does not use accessory muscles Auscultation: no diminished lung sounds (Bases bilaterally), no rales (Bases bilaterally), no rhonchi and no wheezes Cardiovascular: Rate/Rhythm: regular rate and regular rhythm Heart Sounds: normal S1 and normal S2; no gallop, no murmur and no cardiac rub Palpation: normal PMI Vessels: radial pulses present; no JVD Extremities: no edema Gastrointestinal (Abdomen): Inspection/Auscultation: abdomen normal to inspection and normal bowel sounds; abdomen not distended Percussion/Palpation: abdomen soft; abdomen nontender, no guarding and abdomen not rigid Musculoskeletal: no cyanosis or clubbing, extremities motor strength 5/5 Skin: no rashes, warm and dry Neurologic: moves all extremities; no focal motor deficits Psychiatric: A+Ox3, euthymic affect Results & Data Vital Signs (Past 12 Hours) Vital Signs Temp Pulse Pulse Resp BP BP Pulse Ox 12/26/19 08:25 96 12/26/19 07:53 36.8 C 60 19 135/65 97 12/26/19 04:44 36.7 C 66 17 123/69 100 12/26/19 00:00 36.8 C 75 68 17 131/58 L 100 (1) Aortic regurgitation Cardiac valve disease etiology: nonrheumatic Qualified Code(s): I35.1 - Nonrheumatic aortic (valve) insufficiency
--- NOTE | 2019-12-26 15:46 | Hospitalist Progress Note ---
Date of Service December 26, 2019 Assessment & Plan (1) Acute on chronic systolic (congestive) heart failure: EF is 35-40% on echo in 11/2019. Baseline weight is ~135 lbs on patient's home scale. Over the last few weeks, he has climbed to 141.6 lbs. He has also had gradually increasing dyspnea on exertion and orthopnea. - Temporarily hold Lasix IV -> Restart tomorrow after BMP. - Monitor I&Os; daily weights - Supplemental O2 PRN (2) CAD (coronary artery disease): S/p 1 MARY to proximal LAD (70%) and 2 MARY to the mid-LAD (95% lesion) on 11/07/2019. RCA was completely occluded, but appeared chronic and no intervention done. No chest pain presently. - Continue ASA, Plavix, beta-feli, Imdur, statin (3) Left bundle branch block: Stable. - No issues inpatient (4) Aortic regurgitation: Noted on prior echo. I do not believe this is acutely contributing to his hospitalization. - Follow up echo. (5) Hypertension: BP presently 140/70. - Continue home meds: amlodipine, beta-feli, and Imdur (6) DVT prophylaxis: Heparin 5000 units SQ Q12h Admission and Anticipated Discharge Date Admission Date: December 24, 2019 Subjective Feels like he is still shortness of breath with exertion. Reports no fevers/chills, chest pain, abdominal pain, nausea, or vomiting. Physical Exam Constitutional: WD/WN, vitals as above Eyes: EOM intact bilaterally; no conjunctival abnormality ENMT: external ear and nose normal, oropharynx normal Neck: trachea midline, no thyromegaly normal visual inspection Respiratory: normal respiratory effort, lungs clear to auscultation no respiratory distress Cardiovascular: RRR, no murmur, no edema Gastrointestinal (Abdomen): Inspection/Auscultation: abdomen normal to inspection; abdomen not distended Musculoskeletal: no cyanosis or clubbing, extremities motor strength 5/5 Skin: no rashes, warm and dry Neurologic: moves all extremities and awake Psychiatric: Orientation: alert, oriented to person and cooperative Results & Data ([facility]) Vital Signs (Past 12 Hours) Vital Signs Temp Pulse Pulse Resp BP BP Pulse Ox 12/26/19 15:25 68 12/26/19 15:11 36.4 C L 67 19 143/73 H 94 12/26/19 11:02 36.6 C 58 L 18 119/62 95 12/26/19 08:25 96 12/26/19 07:53 36.8 C 60 19 135/65 97 12/26/19 04:44 36.7 C 66 17 123/69 100 PG Care Time/CCT Total # of Minutes Spent Total Time Spent with Patient: Total time spent is greater than 50% in coordination of care (as documented) at patient's floor/unit and/or counseling patient: Coding Level of Care Code 33878 Subseq Hosp Care Lvl 2 Diagnoses Acute on chronic systolic (congestive) heart failure I50.23 CAD (coronary artery disease) I25.10 Left bundle branch block I44.7 Aortic regurgitation I35.1 Cardiac valve disease etiology: nonrheumatic Hypertension I10 DVT prophylaxis Z29.9 (1) Aortic regurgitation Cardiac valve disease etiology: nonrheumatic Qualified Code(s): I35.1 - Nonrheumatic aortic (valve) insufficiency
[2019-12-26] MEDS: ATORVASTATIN 40 MG TAB PO SCH (20:39)
--- NOTE | 2019-12-26 21:25 | Electrocardiogram Report ---
Test Reason : Blood Pressure : / mmHG Vent. Rate : 065 BPM Atrial Rate : 065 BPM P-R Int : 146 ms QRS Dur : 142 ms QT Int : 464 ms P-R-T Axes : 071 -51 096 degrees QTc Int : 482 ms Normal sinus rhythm Left axis deviation Left bundle branch block Abnormal ECG When compared with ECG of 25-DEC-2019 06:56, No significant change was found Confirmed by Jean-Claude Payton ([id number]) on 12/26/2019 9:24:46 PM Referred By: REFERRED SELF Confirmed By:Jean-Claude Payton
[2019-12-27 06:11] LABS: Hematocrit (blood only) 26.6 % (42-52); Hemoglobin 8.8 g/dL (14.0-18.0); Mean Corpuscular Hgb Conc 33.1 g/dL (32-36); Mean Corpuscular Volume 90.8 fL (80-100); Mean Platelet Volume 9.8 fL (7.4-10.4); Platelet Count 288 K/uL (130-400); RDW Coefficient of Variation 13.4 % (11.5-14.5); RDW Standard Deviation 44.1 fL (36.4-46.3); Red Blood Count 2.93 M/uL (4.7-6.1); White Blood Count 7.82 K/uL (4.8-10.8)
[2019-12-27 06:47] LABS: Calcium 8.8 mg/dl (8.5-10.1); Est GFR (African American) 27.8; Potassium 4.2 mmol/L (3.5-5.1)
[2019-12-27 06:58] LABS: Ferritin 15.9 ng/ml (8-388)
[2019-12-27] MEDS ORDERED: IRON SUCROSE 200 MG in 0.9 % SODIUM CHLORIDE 100 ML IV ONE (07:30)
[2019-12-27] MEDS: CLOPIDOGREL BISULFATE 75 MG TAB PO SCH (07:33)
[2019-12-27] MEDS: carvediloL 6.25 MG TAB PO SCH (07:33)
[2019-12-27] MEDS: ASPIRIN 81 MG ECTAB PO SCH (07:34)
[2019-12-27] MEDS: ISOSORBIDE MONO EXTENDED REL 30 MG TABCR PO SCH (07:34)
[2019-12-27] MEDS: AMLODIPINE BESYLATE 5 MG TAB PO SCH (07:34)
[2019-12-27] MEDS: NICOTINE 7 MG/24 HR TDSY TD SCH (07:34)
[2019-12-27] MEDS: PANTOprazole 40 MG TAB PO SCH (07:34)
[2019-12-27] MEDS: CHOLECALCIFEROL 1,000 UNITS 25 MCG TAB PO SCH (07:34)
[2019-12-27 09:21] LABS: Folate (Folic Acid) 5.98 ng/ml (>5.38)
[2019-12-27] MEDS: HEPARIN SOD 5,000 UNIT/0.5 ML VIAL SQ SCH (09:25)
--- NOTE | 2019-12-27 16:05 | Discharge Summary ---
Date of Service December 27, 2019 Admission HPI Per Admitting Provider The patient is a 59yo male with PMH of CM, LBBB, AI, Hyponatremia, NSTEMI, CAD, HTN, HLD, PVD, and most recent admission for acute resp failure secondary to acute CHF from 11/30-12/03/19. He presents to the ED with similar symptoms of acute onset of SOB at 8:00 this evening. In the ED CXR was suggestive of CHF, and he did begin to respond to the Furosemide 60mg IV given by the ED, but kelley catheter did need to be placed due urinary retention. He also noes significant fatigue. Principal Diagnosis CHF exacerbation Discharge Exam Constitutional WD/WN, vitals as above Eyes EOM intact bilaterally; no conjunctival abnormality ENMT external ear and nose normal, oropharynx normal Neck trachea midline, no thyromegaly normal visual inspection Respiratory normal respiratory effort, lungs clear to auscultation no respiratory distress Cardiovascular RRR, no murmur, no edema Gastrointestinal (Abdomen) Inspection/Auscultation: abdomen normal to inspection; abdomen not distended Musculoskeletal no cyanosis or clubbing, extremities motor strength 5/5 Skin no rashes, warm and dry Neurologic moves all extremities and awake Psychiatric Orientation: alert, oriented to person and cooperative Discharge Data Allergies Allergy/AdvReac Type Severity Reaction Status Date / Time No Known Allergies Allergy Unknown Verified 12/24/19 22:49 Consultations 12/24/19 23:00 ED Decision to Admit Stat 12/25/19 01:15 Consult Case Management - Discharge Planning Routine 12/25/19 07:29 Consult Cardiology Routine Hospital Course (1) Acute on chronic systolic (congestive) heart failure: EF is 35-40% on echo in 11/2019. Baseline weight is ~135 lbs on patient's home scale. Over the last few weeks, he has climbed to 141.6 lbs. He has also had gradually increasing dyspnea on exertion and orthopnea. - Quickly diuresed with IV Lasix. - Discharged on Lasix 20 mg PO daily. Multiple, long conversations about needing to contact cardiology even if his weight gradually goes up or if s ymptoms gradually worsen. He was overall back to baseline by discharge. Dry weight is likely ~135 lbs, and he was asked to go home and weigh himself right away to get his new "dry" weight on his home scales. - Will follow up with [facility] Heart Failure (2) Iron deficiency anemia: Hgb noted to be ~11 in 11/2019, now in the 9 range. - Iron studies review iron deficiency with ferritin of 15. Given 200 mg IV iron on the day of discharge and sent out on QOD iron supplement. - Can discuss with PCP: 1) Whether he needs repeat colonoscopy (last one 2-3 years ago he reports) or EGD 2) Any further iron IV. Studies indicate iron repletion can reduce CHF symptoms and exacerbations, so occasional IV iron may be beneficial for him. (3) CAD (coronary artery disease): S/p 1 MARY to proximal LAD (70%) and 2 MARY to the mid-LAD (95% lesion) on 11/07/2019. RCA was completely occluded, but appeared chronic and no intervention done. No chest pain presently. - Continued ASA, Plavix, beta-feli, Imdur, statin (4) Left bundle branch block: Stable. - No issues inpatient (5) Aortic regurgitation: Noted on prior echo. I do not believe this is acutely contributing to his hospitalization. - Follow up echo. (6) Hypertension: BP presently 140/70. - Continue home meds: amlodipine, beta-feli, and Imdur (7) DVT prophylaxis: Heparin 5000 units SQ Q12h Total Time Total Time Spent Total Time Spent (In Minutes): 35 Discharge Plan Discharge Items Patient Disposition: Home - Self-Care Reason For Visit: ACUTE RESPIRATORY FAILURE WITH HYPOXIA Discharge Diagnosis: Acute CHF exacerbation Activity: Resume your previous activity Non-emergency contact: Primary Care Provider and [employer] Call non-emergency contact if: your symptoms worsen Follow-up/Referrals: Erlin Duncan [Physician Retail Support Specialist] - (Please see Mr. Winterardo next week.) Carmen Viramontes PA-C [Primary Care Provider] - (THE [facility] OFFICE WILL CALL YOU WITH AN APT THIS WEEK. ) Diet: Heart Healthy and Low Sodium (2gm) Addtl Attending Provider Instructions: Starting tomorrow, take Lasix 20 mg (1 tablet) every day. Your dry weight is 135 lbs on our scales. Please go home, dress in your usual pajamas, and weigh yourself. This is your "dry weight," meaning you should aim to stay around this weight. If you gain more than 3 lbs. from your dry weight (even if it's over more than a few days), please call the [facility] cardiology team to ask about how to adjust your Lasix. You may need to double a dose or take two doses for a few days to get you back to your weight. If your symptoms get worse (harder walking around the house, more trouble lying flat, more shortness of breath with stairs), please call your cardiology team right away. Do this even if your weight is not changing. The peck to staying out of the hospital is to keep in contact your heart doctors if you see changes that are concerning to you. Finally, we found that your iron levels are low. Please see your PCP about this. You indicated you had a clear colonoscopy in the last 2-3 years. Your PCP may refer you to a GI doctor for a scope of your esophagus and stomach (called an EGD). I would encourage you to start an iron tablet every other day. You do not need to take one every day and not two or three times per day. Your body doesn't absorb the iron that quickly, and it is a waste of money and can cause upset stomach and constipation. Taking it every other day will help your body absorb the most iron the most effectively. Pending Studies at Discharge: No Stand-Alone Forms: My [facility], Smoking Cessation Medications and DC Order Prescriptions: New furosemide 20 mg tablet 20 mg PO DAILY Qty: 30 RF: 0 ferrous sulfate [iron] 325 mg (65 mg iron) tablet 325 mg PO Q OTHER DAY Qty: 30 RF: 0 Continued isosorbide dinitrate 30 mg tablet 30 mg PO DAILY RF: 0 aspirin 81 mg Tablet,Delayed Release (Dr/Ec) 81 mg PO DAILY RF: 0 atorvastatin 80 mg Tablet 80 mg PO PM RF: 0 carvedilol 12.5 mg Tablet 6.25 mg PO BID RF: 0 clopidogrel [Plavix] 75 mg Tablet 75 mg PO DAILY RF: 0 amlodipine 10 mg Tablet 10 mg PO DAILY RF: 0 pantoprazole 40 mg Tablet,Delayed Release (Dr/Ec) 40 mg PO DAILY RF: 0 cholecalciferol (vitamin D3) 2,000 unit Tablet,Chewable 2,000 unit PO DAILY RF: 0 Discontinued furosemide [Lasix] 20 mg tablet 20 mg PO Q OTHER DAY Qty: 5 RF: 0 Discharge Orders: Discharge Order (Routine); Ordered 12/27/19 Ordered By: Michael Toscano/Other Patient Handouts: Heart Failure, Heart Failure Tracking Weight, Heart Failure Proctor, Heart Failure Making Changes to Your Diet, Cardiomyopathy Dc Admission Data Admit Date/Time: 12/24/19 23:20 Attending Provider: Michael Hampton Admit Provider: Abimael Thomas Primary Care Provider: Carmen Viramontes Other Providers: Michael Hampton ; Azam De La Cruz Other Interventions: Discharge Summary Assessment (RN) Last Done: 12/27/19 11:09 DC Date/Time DO NOT enter until pt leaves facility: 12/27/19 11:47 Coding Level of Care Code D/C Day Management >30 mins Diagnoses Acute on chronic systolic (congestive) heart failure I50.23 Iron deficiency anemia D50.9 CAD (coronary artery disease) I25.10 Left bundle branch block I44.7 Aortic regurgitation I35.1 Cardiac valve disease etiology: nonrheumatic Hypertension I10 DVT prophylaxis Z29.9
== END 2019-12-27 11:47 | disposition home or self-care (01) | DRG 189 ==
LOC: ED 21:20 → 2S 23:20 → SUATTDRO 23:20 → 2S 12-25 00:28

== ENCOUNTER 2020-02-17 11:24 | Inpatient (IN) ==
[2020-02-17] MEDS ORDERED: ONDANSETRON INJ 2 MG/ML 2 ML VIAL IV STA (11:31)
[2020-02-17] MEDS ORDERED: ALBUT/IPRATROP 3MG/0.5MG NEB 3 ML VIAL NEB STA ×2 (11:32→13:05)
[2020-02-17 12:02] LABS: Basophils # (auto) 0.08 K/uL (0-0.2); Basophils % (auto) 0.7 %; Eosinophils # (auto) 0.36 K/uL (0-0.5); Eosinophils % (auto) 3.1 %; Hematocrit (blood only) 35.2 % (42-52); Hemoglobin 11.7 g/dL (14.0-18.0); Immature Granulocytes # (auto) 0.04 K/uL (0.00-0.02); Immature Granulocytes % (auto) 0.3 %; Lymphocytes # (auto) 2.71 K/uL (1.2-3.4); Lymphocytes % (auto) 23.1 %; Mean Corpuscular Hemoglobin 30.5 pg (25-34); Mean Corpuscular Hgb Conc 33.2 g/dL (32-36); Mean Corpuscular Volume 91.7 fL (80-100); Mean Platelet Volume 9.8 fL (7.4-10.4); Monocytes # (auto) 0.83 K/uL (0.11-0.59); Monocytes % (auto) 7.1 %; Neutrophils # (auto) 7.69 K/uL (1.4-6.5); Neutrophils % (auto) 65.7 %; Platelet Count 312 K/uL (130-400); RDW Coefficient of Variation 15.5 % (11.5-14.5); RDW Standard Deviation 52.4 fL (36.4-46.3); Red Blood Count 3.84 M/uL (4.7-6.1); White Blood Count 11.71 K/uL (4.8-10.8)
--- NOTE | 2020-02-17 12:02 | XRay Report ---
SINGLE VIEW CHEST CLINICAL HISTORY: Atypical chest pain. FINDINGS: An AP, portable, upright chest radiograph is compared to study dated 12/24/2019 and correlat ed with chest CT dated 11/03/2019. The examination is degraded by portable technique and patient rota tion. The heart is enlarged noting atherosclerotic calcification of the thoracic aorta. There is pulm onary vascular congestion with evidence of interstitial edema. Emphysema and chronic interstitial thi ckening are similar to previous. There are small pleural effusions with bibasilar consolidation. Pleu ral thickening is noted at the right lateral apex. No pneumothorax is seen. The skeletal structures a re osteopenic. The bony thorax is grossly intact. IMPRESSION: 1. Cardiomegaly and emphysema. There is evidence of congestive failure and interstitial edema. 2. Small pleural effusions with bibasilar consolidation which likely represents atelectasis. Correlat e clinically for evidence of superimposed pneumonia. Radiographic follow-up to resolution is recommen ded. 3. Pleural thickening is again seen at the lateral right apex. The right lower lobe nodular density q uestioned by CT on 11/03/2019 cannot be assessed by x-ray. ACT 112: Negative or not required by law. Electronically signed by: Tyler Gresham M.D. 02/17/2020 12:01 PM
[2020-02-17 12:06] LABS: Base Excess VBG -6.6 mEq/L; Oxygen Saturation VBG 91.9 %; pH VBG 7.27 (7.36-7.41)
[2020-02-17 12:13] LABS: Partial Thromboplastin Ratio 0.9; Partial Thromboplastin Time 25.6 Seconds (21.0-31.0)
--- NOTE | 2020-02-17 12:22 | Emergency Department Note ---
Impression & Plan Acute respiratory failure, Left bundle branch block, Cardiomyopathy, Pulmonary edema, Wheezing ED Provider Note NAME: JULIAN ARGUETA AGE: 60 SEX: M ARRIVES VIA: Walk-In INFORMANT: Patient, ED PROVIDER(S): Sohail Shipley MD CHIEF COMPLAINT: Respiratory distress PLAN: Disposition: Admit MEDICAL DECISION MAKING: The patient is a pleasant 60-year-old gentleman with a past medical history of ischemic cardiomyopathy with an EF of 35%, CKD, chronic left bundle branch block, hypertension, hyperlipidemia, COPD, aortic regurgitation who presents [facility] department for evaluation of severe respiratory distress acute elevation of blood pressure of 160s/100s which occurred in the setting of having outpatient EGD performed for concern for GI bleed/blood loss anemia where he had received 400 cc of IV fluids in preparation for his procedure procedure and prior to receiving any medications for sedation he lay flat and suddenly became acutely short of breath with significant work of breathing and with production of white frothy sputum referred to the emergency department for evaluation. The patient denies any recent illness including fevers, cough, congestion, nausea, vomiting, diarrhea prior to his outpatient procedure today. He denies any travel to high risk areas or contact with any known individuals diagnosed with COVID-19. He reports he quit smoking 110 days ago. On arrival the patient is in severe respiratory distress, tachypneic with increased work of breathing. On exam the patient had scattered rales and rhonchi with scant intermittent wheeze. Given the report of the acute onset of symptoms in the setting of his exam fi ndings the patient's presentation is most consistent with flash pulmonary edema, so he was placed immediately on BiPAP with improvement in his work of breathing. Given the patient's history of COPD with evidence of bronchospasm on exam he was also given duo nebs with steroid. Chest x-ray demonstrates congestive failure with interstitial edema. There is also comment of small pleural effusions with bibasilar validation which is likely atelectasis. WBC 11.7, nonspecific. H/H 11.7/35.2 improved from prior values. Platelets within normal limits. VBG with pH of 7.27 likely related to transient acute onset hypercapnia that is now resolved. 124 with serum and urine osms pending. Calcium 3.4 with repletion provided. Creatinine 2.09 approximate 2 prior range of values. Electrolytes and LFTs otherwise unremarkable. Troponin negative/undetectable. BNP 4400, just decreased from patient's prior values. The patient's component of bronchospasm will additionally treated with dose of doxycycline. Of note, I did speak with Kendra Estrada who explained that they would still like to proceed with his endoscopy during his admission once the patient is stabilized from a respiratory perspective. They will reach out to the admitting team. Case was discussed with Dr. Woods, [facility] hospitalist, who will evaluate the patient for admission. Triage Nursing notes reviewed and agree them. Prior medical records reviewed Vital Signs: reviewed and remarkable for no significant abnormalities Differential diagnosis: Reactive airway disease, pneumonia, pneumothorax, COPD, CHF, infections, cardiac ischemia, pulmonary embolism, musculoskeletal, gastrointestinal, as well as other pathologies. ER treatment provided: See Below. Diagnostics interpreted by me: ECG: Sinus rhythm, 90 bpm, left bundle branch block, no ectopy, No Sgarbossa criteria. Cardiac Monitoring: An order for cardiac monitoring was placed. Normal sinus rhythm, 90 bpm, no ectopy. Laboratory studies: See below Imaging studies: SINGLE VIEW CHEST CLINICAL HISTORY: Atypical chest pain. FINDINGS: An AP, portable, upright chest radiograph is compared to study dated 12/24/2019 and correlated with chest CT dated 11/03/2019. The examination is degraded by portable technique and patient rotation. The heart is enlarged noting atherosclerotic calcification of the thoracic aorta. There is pulmonary vascular congestion with evidence of interstitial edema. Emphysema and chronic interstitial thickening are similar to previous. There are small pleural effusions with bibasilar consolidation. Pleural thickening is noted at the right lateral apex. No pneumothorax is seen. The skeletal structures are osteopenic. The bony thorax is grossly intact. IMPRESSION: 1. Cardiomegaly and emphysema. There is evidence of congestive failure and interstitial edema. 2. Small pleural effusions with bibasilar consolidation which likely represents atelectasis. Correlate clinically for evidence of superimposed pneumonia. Radiographic follow-up to resolution is recommended. 3. Pleural thickening is again seen at the lateral right apex. The right lower lobe nodular density questioned by CT on 11/03/2019 cannot be assessed by x-ray. Consultation(s): None HPI: The patient is a pleasant 60-year-old gentleman with a past medical history of ischemic cardiomyopathy with an EF of 35%, CKD, chronic left bundle branch block, hypertension, hyperlipidemia, COPD, aortic regurgitation who presents emergency department for evaluation of severe respiratory distress acute elevation of blood pressure of 160s/100s which occurred in the setting of having outpatient EGD performed for concern for GI bleed/blood loss anemia where he had received 400 cc of IV fluids in preparation for his procedure procedure and prior to receiving any medications for sedation he lay flat and suddenly became acutely short of breath with significant work of breathing and with production of white frothy sputum referred to the emergency department for evaluation. The patient denies any recent illness including fevers, cough, congestion, nausea, vomiting, diarrhea prior to his outpatient procedure today. He denies any travel to high risk areas or contact with any known individuals diagnosed with COVID-19. He reports he quit smoking 110 days ago. ROS: See above HPI for pertinent positives & negatives. A total of 10 systems reviewed and were otherwise negative. PAST MEDICAL HISTORY:See Below PAST SURGICAL HISTORY:See Below FAMILY HISTORY:See Below SOCIAL HISTORY:See Below HOME MEDICATIONS:See Below ALLERGIES:See Below VITALS:See Below PHYSICAL EXAMINATION: GENERAL: Awake, alert, comfortable/ill-appearing, in severe respiratory distress. HENT: Normocephalic, atraumatic. Oropharynx unremarkable. EYES: Normal conjunctiva. Sclera non-icteric. NECK: Supple. No nuchal rigidity. FROM. No JVD. RESPIRATORY: Severe respiratory distress, tachypneic with increased work of breathing. He has scattered rales and rhonchi throughout with scant intermittent wheezes. CARDIAC: Tachycardic rate, normal rhythm. Extremities warm and well perfused. Pulses equal. ABDOMEN: Soft, non-distended. No tenderness to palpation. No rebound or guarding. No masses. RECTAL: Deferred. MUSCULOSKELETAL: Chest examination reveals no tenderness. The back is symmetrical on inspection without obvious abnormality. There is no CVA tenderness to palpation. No joint edema. LOWER EXTREMITIES: Calves are equal size bilaterally and non-tender. No edema. No discoloration. NEURO: Normal sensorium. No sensory or motor deficits noted. SKIN: No rash or jaundice noted. Critical Care: I have personally spent greater than 75 minutes of critical care time in the direct management of this patient. This includes bedside care, interpretation of diagnostic studies, and testing, discussion with consultants, patient, and family members, and other required patient management activities. This 75 minutes is in excess of all separately billable procedures. Sohail Shipley MD Past Med/Surg History Medical History Anemia CAD (coronary artery disease) MIXED AORTIC VALVE DISORDER; MITRAL REGURGITATION Chronic congestive heart failure 02/16/2020 - CURRENTLY DENIES ANY INCREASED SHORTNESS OF BREATH FROM BASELINE. CHEST PAIN HAS SUBSIDED SINCE STARTING HYDRALAZINE Chronic kidney disease STAGE 3-4 COPD (chronic obstructive pulmonary disease) Heme positive stool REASON FOR COLONOSCOPY/EGD Hyperlipidemia Hypertension Hyponatremia CHRONIC Iron deficiency anemia REASON FOR COLONOSCOPY/EGD Ischemic cardiomyopathy EJECTION FRACTION 35-40% Left bundle branch block (Acute) Nocturnal hypoxemia due to emphysema 3 L OF O2 AT HS. DOES NOT NEED ANY OXYGEN DURING THE DAY. 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 RESIDUAL 40% 2ND OBTUSE MARGINAL STENOSIS. (PATIENT INSTRUCTED TO STAY ON BOTH ASPIRIN AND PLAVIX FOR HIS COLONOSCOPY AND EGD PROCEDURE ON 02/17/2020.) Social History Preferred Language: Moroccan Communication Ability: Effective Senior Solutions Architect Required: No Beliefs That Will Affect Care: None Current Living Situation: Alone Current Living Situation Comment: unknown pt intubated and sedated. no family present Other Information That Helps Us Care for You: No Feels Safe at Home: Yes Safety Concerns: Feels Safe At This Time Smoking Status: Former smoker Tobacco Type: cigarettes ; Cigarettes Per Day: QUIT 11/02/2019 ; Do You Dip or Chew Tobacco: No ; Smoking End Date: 11/02/2019 ; Second Hand Exposure: No ; Tobacco Cessation Education Requested by Patient: No Hx Alcohol Use: Yes Alcohol type: beer Hx Substance Use: No Allergies Allergies Allergy/AdvReac Type Severity Reaction Status Date / Time No Known Allergies Allergy Unknown Verified 02/17/20 12:52 Home Meds Home Medications Medication Instructions Recorded Confirmed aspirin 81 mg PO QAM 11/03/19 02/17/20 amlodipine 10 mg PO QAM 11/30/19 02/17/20 atorvastatin 80 mg PO HS 11/30/19 02/17/20 carvedilol 6.25 mg PO BID 11/30/19 02/17/20 clopidogrel [Plavix] 75 mg PO QAM 11/30/19 02/17/20 pantoprazole 40 mg PO QAM 11/30/19 02/17/20 cholecalciferol (vitamin D3) 2,000 unit PO QAM 12/24/19 02/17/20 ferrous sulfate [iron] 325 mg PO QAM 02/16/20 02/17/20 furosemide 20 mg PO [facility] 02/16/20 02/17/20 furosemide [Lasix] 40 mg PO QAM 02/16/20 02/17/20 hydralazine 12.5 mg PO BID 02/16/20 02/17/20 isosorbide mononitrate 30 mg PO DAILY 02/17/20 02/17/20 Results & Data (ED) Vital Signs Vital Signs - 24 hr 02/17/20 11:28 02/17/20 11:29 02/17/20 11:30 Temperature Temperature Source Pulse Rate 93 H 100 H 104 H Pulse Rate [Left] Pulse Rate from SpO2 Sensor 93 H 99 H 107 H Pulse Rhythm Pulse Strength Respiratory Rate 23 20 27 H Respiratory Effort / Characteristics Respiratory Depth Respiratory Pattern Blood Pressure 146/87 H Blood Pressure Mean 108 Blood Pressure Position Pulse Oximetry 92 84 L 80 L Oxygen Delivery Method Oxygen Flow Rate Fraction of Inspired Oxygen Sepsis Recent Fever Within 48 Hours Sepsis New/Unexplained Change in Mental Status Sepsis Action Taken by Nursing 02/17/20 11:32 02/17/20 11:40 02/17/20 11:44 Temperature Temperature Source Pulse Rate 102 H 95 H Pulse Rate [Left] Pulse Rate from SpO2 Sensor 103 H Pulse Rhythm Pulse Strength Respiratory Rate 30 H 30 H Respiratory Effort / Characteristics Spontaneous Tripoding Spontaneous Gasping/Agonal Grunting Labored Respiratory Depth Shallow Normal Respiratory Pattern Tachypnea Regular Blood Pressure Blood Pressure Mean Blood Pressure Position Pulse Oximetry 85 L 95 Oxygen Delivery Method Oxymask Oxygen Flow Rate 10 Fraction of Inspired Oxygen 50 Sepsis Recent Fever Within 48 Hours Sepsis New/Unexplained Change in Mental Status Sepsis Action Taken by Nursing 02/17/20 11:46 02/17/20 11:49 02/17/20 11:50 Temperature 36.4 C L Temperature Source Oral Pulse Rate 91 H 91 H Pulse Rate [Left] 95 H Pulse Rate from SpO2 Sensor 91 H Pulse Rhythm Regular Pulse Strength Normal Respiratory Rate 28 H 32 H 27 H Respiratory Effort / Characteristics Spontaneous Grunting Labored Tripoding Respiratory Depth Shallow Respiratory Pattern Tachypnea Blood Pressure 146/87 H Blood Pressure Mean 106 Blood Pressure Position Sitting Pulse Oximetry 98 88 L 98 Oxygen Delivery Method BiPAP Oxymask Oxygen Flow Rate 10 Fraction of Inspired Oxygen 50 Sepsis Recent Fever Within 48 Hours No Sepsis New/Unexplained Change in Mental Status No Sepsis Action Taken by Nursing No Action Required 02/17/20 11:55 02/17/20 12:00 02/17/20 12:09 Temperature Temperature Source Pulse Rate 90 95 H Pulse Rate [Left] Pulse Rate from SpO2 Sensor 89 96 H Pulse Rhythm Pulse Strength Respiratory Rate 34 H 35 H Respiratory Effort / Characteristics Respiratory Depth Respiratory Pattern Blood Pressure 172/81 H Blood Pressure Mean 115 Blood Pressure Position Pulse Oximetry 98 97 Oxygen Delivery Method BiPAP Oxygen Flow Rate Fraction of Inspired Oxygen 50 Sepsis Recent Fever Within 48 Hours Sepsis New/Unexplained Change in Mental Status Sepsis Action Taken by Nursing 02/17/20 12:10 02/17/20 12:20 02/17/20 12:30 Temperature Temperature Source Pulse Rate 94 H 88 89 Pulse Rate [Left] Pulse Rate from SpO2 Sensor 94 H 88 89 Pulse Rhythm Pulse Strength Respiratory Rate 32 H 27 H 31 H Respiratory Effort / Characteristics Respiratory Depth Respiratory Pattern Blood Pressure 158/77 H Blood Pressure Mean 96 Blood Pressure Position Pulse Oximetry 99 99 99 Oxygen Delivery Method Oxygen Flow Rate Fraction of Inspired Oxygen Sepsis Recent Fever Within 48 Hours Sepsis New/Unexplained Change in Mental Status Sepsis Action Taken by Nursing 02/17/20 12:40 02/17/20 12:45 02/17/20 12:50 Temperature Temperature Source Pulse Rate 87 86 85 Pulse Rate [Left] Pulse Rate from SpO2 Sensor 86 86 85 Pulse Rhythm Pulse Strength Respiratory Rate 32 H 33 H 29 H Respiratory Effort / Characteristics Respiratory Depth Respiratory Pattern Blood Pressure 163/100 H Blood Pressure Mean 110 Blood Pressure Position Pulse Oximetry 99 100 100 Oxygen Delivery Method Oxygen Flow Rate Fraction of Inspired Oxygen Sepsis Recent Fever Within 48 Hours Sepsis New/Unexplained Change in Mental Status Sepsis Action Taken by Nursing 02/17/20 13:00 02/17/20 13:02 02/17/20 13:10 Temperature Temperature Source Pulse Rate 87 83 Pulse Rate [Left] Pulse Rate from SpO2 Sensor 89 83 84 Pulse Rhythm Pulse Strength Respiratory Rate 34 H 30 H 29 H Respiratory Effort / Characteristics Respiratory Depth Respiratory Pattern Blood Pressure 134/60 Blood Pressure Mean 74 Blood Pressure Position Pulse Oximetry 100 100 100 Oxygen Delivery Method Oxygen Flow Rate Fraction of Inspired Oxygen Sepsis Recent Fever Within 48 Hours Sepsis New/Unexplained Change in Mental Status Sepsis Action Taken by Nursing Laboratory Data Attestation: I reviewed the patient's lab results. Result diagrams: 02/17/20 11:48 02/17/20 11:48 Lab Results 02/17/20 02/17/20 02/17/20 Range/Units 11:48 11:48 11:48 WBC 11.71 H (4.8-10.8) K/uL RBC 3.84 L (4.7-6.1) M/uL Hgb 11.7 L (14.0-18.0) g/dL Hct 35.2 L (42-52) % MCV 91.7 (80-100) fL MCH 30.5 (25-34) pg MCHC 33.2 (32-36) g/dL RDW Std Deviation 52.4 H (36.4-46.3) fL RDW Coeff of Monika 15.5 H (11.5-14.5) % Plt Count 312 (130-400) K/uL MPV 9.8 (7.4-10.4) fL Immature Gran % (Auto) 0.3 % Neut % (Auto) 65.7 % Lymph % (Auto) 23.1 % Wilkin % (Auto) 7.1 % Eos % (Auto) 3.1 % Baso % (Auto) 0.7 % Immature Gran # (Auto) 0.04 H (0.00-0.02) K/uL Neut # (Auto) 7.69 H (1.4-6.5) K/uL Lymph # (Auto) 2.71 (1.2-3.4) K/uL Wilkin # (Auto) 0.83 H (0.11-0.59) K/uL Eos # (Auto) 0.36 (0-0.5) K/uL Baso # (Auto) 0.08 (0-0.2) K/uL PT 11.0 (9.0-12.0) Seconds INR 1.0 (0.9-1.1) APTT 25.6 (21.0-31.0) Seconds PTT Ratio 0.9 VBG pH (7.36-7.41) VBG pCO2 (38-50) mmHg VBG pO2 mmHg VBG HCO3 mmol/L VBG O2 Saturation % VBG Base Excess mEq/L Barometric Pressure mm/Hg Sodium 124 L (136-145) mmol/L Potassium 3.4 L (3.5-5.1) mmol/L Chloride 94 L (98-107) mmol/L Carbon Dioxide 23 (21-32) mmol/L Anion Gap 7.0 (3-11) BUN 29 H (7-18) mg/dl Creatinine 2.09 H (0.6-1.4) mg/dl Est Cr Clr Drug Dosing 35.5 ml/min Est GFR ( Amer) 38.2 Est GFR (Non-Af Amer) 32.9 BUN/Creatinine Ratio 13.8 (10-20) Glucose 176 H (70-99) mg/dl Osmolality (280-300) mOsm/kg Calcium 8.6 (8.5-10.1) mg/dl Phosphorus 4.4 (2.5-4.9) mg/dl Magnesium 1.9 (1.8-2.4) mg/dl Total Bilirubin 0.6 (0.2-1) mg/dl Direct Bilirubin 0.2 (0-0.2) mg/dl AST 19 (15-37) U/L ALT 17 (12-78) U/L Alkaline Phosphatase 82 (45-117) U/L Troponin I < 0.015 (0-0.045) ng/ml NT-Pro-B Natriuret Pep 4440 H (0-900) pg/ml Total Protein 7.6 (6.4-8.2) gm/dl Albumin 3.7 (3.4-5.0) gm/dl Globulin 3.9 (2.5-4.0) gm/dl Albumin/Globulin Ratio 0.9 (0.9-2) Lipase 99 (73-393) U/L Blood Type Antibody Screen 02/17/20 02/17/20 02/17/20 Range/Units 11:48 11:48 11:55 WBC (4.8-10.8) K/uL RBC (4.7-6.1) M/uL Hgb (14.0-18.0) g/dL Hct (42-52) % MCV (80-100) fL MCH (25-34) pg MCHC (32-36) g/dL RDW Std Deviation (36.4-46.3) fL RDW Coeff of Monika (11.5-14.5) % Plt Count (130-400) K/uL MPV (7.4-10.4) fL Immature Gran % (Auto) % Neut % (Auto) % Lymph % (Auto) % Wilkin % (Auto) % Eos % (Auto) % Baso % (Auto) % Immature Gran # (Auto) (0.00-0.02) K/uL Neut # (Auto) (1.4-6.5) K/uL Lymph # (Auto) (1.2-3.4) K/uL Wilkin # (Auto) (0.11-0.59) K/uL Eos # (Auto) (0-0.5) K/uL Baso # (Auto) (0-0.2) K/uL PT (9.0-12.0) Seconds INR (0.9-1.1) APTT (21.0-31.0) Seconds PTT Ratio VBG pH 7.27 L (7.36-7.41) VBG pCO2 45 (38-50) mmHg VBG pO2 75 mmHg VBG HCO3 20 mmol/L VBG O2 Saturation 91.9 % VBG Base Excess -6.6 mEq/L Barometric Pressure 734.2 mm/Hg Sodium (136-145) mmol/L Potassium (3.5-5.1) mmol/L Chloride (98-107) mmol/L Carbon Dioxide (21-32) mmol/L Anion Gap (3-11) BUN (7-18) mg/dl Creatinine (0.6-1.4) mg/dl Est Cr Clr Drug Dosing ml/min Est GFR ( Amer) Est GFR (Non-Af Amer) BUN/Creatinine Ratio (10-20) Glucose (70-99) mg/dl Osmolality 275 L (280-300) mOsm/kg Calcium (8.5-10.1) mg/dl Phosphorus (2.5-4.9) mg/dl Magnesium (1.8-2.4) mg/dl Total Bilirubin (0.2-1) mg/dl Direct Bilirubin (0-0.2) mg/dl AST (15-37) U/L ALT (12-78) U/L Alkaline Phosphatase (45-117) U/L Troponin I (0-0.045) ng/ml NT-Pro-B Natriuret Pep (0-900) pg/ml Total Protein (6.4-8.2) gm/dl Albumin (3.4-5.0) gm/dl Globulin (2.5-4.0) gm/dl Albumin/Globulin Ratio (0.9-2) Lipase (73-393) U/L Blood Type AB Positive Antibody Screen NEGATIVE Administered Medications Albuterol (Duoneb) 3 ml NEB QIDR GILBERT Stop: 03/18/20 14:59 Last Admin: 02/17/20 15:27 Dose: 3 ml Documented by: [id number] Discontinued Medications Albuterol (Duoneb) 3 ml NEB NOW STA Stop: 02/17/20 11:33 Last Admin: 02/17/20 11:39 Dose: 3 ml Documented by: [id number] Albuterol (Duoneb) 3 ml NEB NOW STA Stop: 02/17/20 13:06 Last Admin: 02/17/20 13:34 Dose: 3 ml Documented by: [id number] Dexamethasone Sodium Phosphate (Decadron Pf) 10 mg IV NOW ONE Stop: 02/17/20 13:06 Last Admin: 02/17/20 13:14 Dose: 10 mg Documented by: [id number] Furosemide (Lasix) 20 mg IV NOW STA Stop: 02/17/20 12:34 Last Admin: 02/17/20 12:49 Dose: 20 mg Documented by: [id number] Potassium Chloride (K David / Wtr) 10 meq in 100 mls @ 100 mls/hr IV ONE ONE Stop: 02/17/20 13:31 Last Infusion: 02/17/20 14:59 Dose: 0 mls/hr Documented by: [id number] Admin: 02/17/20 12:49 Dose: 100 mls/hr Documented by: [id number] Doxycycline Hyclate 100 mg/ (Dextrose) 110 mls @ 50 mls/hr IV NOW STA Stop: 02/17/20 15:16 Last Infusion: 02/17/20 16:03 Dose: 0 mls/hr Documented by: [id number] Admin: 02/17/20 13:51 Dose: 50 mls/hr Documented by: [id number] Furosemide 40 mg/ Syringe 4 mls @ 4 mls/min IV TODAY@1515 ONE Stop: 02/17/20 15:16 Last Admin: 02/17/20 15:34 Dose: 4 mls/min Documented by: [id number] Ondansetron HCl (Zofran) 4 mg IV NOW STA Stop: 02/17/20 11:32 Last Admin: 02/17/20 11:45 Dose: 4 mg Documented by: [id number] Potassium Chloride (Klor-Con M20) 40 meq PO NOW STA Stop: 02/17/20 12:33 Last Admin: 02/17/20 12:49 Dose: 40 meq Documented by: [id number] Blood Pressure Blood Pressure Findings: Elevated blood pressure Blood Pressure Disposition: further management by hospitalist Discharge Plan Visit Data *Final* Discharge Date/Time: 02/17/20 14:09 Chief Complaint: Shortness of Breath/Dyspnea Stated Complaint: Endo procedure, sudden onset SOB/cough ED Provider: Sohail Shipley Discharge Problem: Acute respiratory failure, Left bundle branch block, Cardiomyopathy, Pulmonary edema, Wheezing Patient Disposition: Admitted As Inpatient Discharge Instructions Interventions: ED Discharge Assessment Last Done: 02/17/20 14:09 Discharge Problem: Acute respiratory failure Qualifiers: Respiratory failure complication: hypoxia Qualified Code(s): J96.01 - Acute respiratory failure with hypoxia Cardiomyopathy Qualifiers: Cardiomyopathy type: ischemic Qualified Code(s): I25.5 - Ischemic cardiomyopathy Pulmonary edema Qualifiers: Chronicity: acute Qualified Code(s): J81.0 - Acute pulmonary edema
[2020-02-17 12:23] LABS: Alanine Aminotransferase 17 U/L (12-78); Albumin Level 3.7 gm/dl (3.4-5.0); Aspartate Aminotransferase 19 U/L (15-37); BUN Creatinine Ratio 13.8 (10-20); Bilirubin Direct 0.2 mg/dl (0-0.2); Bilirubin,Total 0.6 mg/dl (0.2-1); Blood Urea Nitrogen 29 mg/dl (7-18); Calcium 8.6 mg/dl (8.5-10.1); Carbon Dioxide 23 mmol/L (21-32); Chloride 94 mmol/L (98-107); Creatinine Clr Calc Pharmacy 35.5 ml/min; Est GFR (African American) 38.2; Est GFR (Non-African American) 32.9; Glucose 176 mg/dl (70-99); Lipase 99 U/L (73-393); Magnesium 1.9 mg/dl (1.8-2.4); Phosphorus 4.4 mg/dl (2.5-4.9); Potassium 3.4 mmol/L (3.5-5.1); Sodium 124 mmol/L (136-145)
[2020-02-17 12:25] LABS: Albumin Globulin Ratio 0.9 (0.9-2); Alkaline Phosphatase 82 U/L (45-117); Globulin 3.9 gm/dl (2.5-4.0); NT Pro B Type Natriuretic Pept 4440 pg/ml (0-900); Total Protein 7.6 gm/dl (6.4-8.2); Troponin I < 0.015 ng/ml (0-0.045)
[2020-02-17] MEDS ORDERED: POTASSIUM CHLORIDE 20 MEQ TABCR PO STA (12:32)
[2020-02-17] MEDS ORDERED: POTASSIUM CHLORIDE / WTR 10 MEQ/100 ML PLCT IV ONE (12:32)
[2020-02-17] MEDS ORDERED: FUROSEMIDE 40 MG/4 ML VIAL IV STA ×2 (12:33→13:28)
--- NOTE | 2020-02-17 12:41 | Gastrointestinal Consultation ---
Date of Consultation February 17, 2020 Assessment & Plan (1) Iron deficiency anemia: (2) Heme positive stool: (3) Respiratory distress: (4) Congestive heart disease: (5) Pulmonary edema: Pt is a 60 y/o male who was originally scheduled for EGD/Colonoscopy for anemia, heme positive stools evaluation. Procedures aborted as pt started having coughing, SOB, retching while in exam room. CXR showed signs of pulmonary edema and congestive failure. EGD/colonoscopy aborted. Pt currently in ED on BiPAP FiO2 50%, O2 sat 99%. Plans for hospital admission. Please place pt on CL diet. GI will re-evaluated pt tomorrow and once he's optimized from cardiopulmonary status will plan for EGD/colonoscopy evaluation prior to pt's discharge. Supervising Physician Co-Signing Physician Notes I performed a history and physical examination of the patient today, including specifically on physical exam - soft abdomen. I have discussed the patient's management with the advanced practitioner. Please refer to the nurse practition er's note for the documented findings and plan of care. History of Present Illness Reason for Consultation: Anemia Requesting Physician: Dr. Sohail Shipley Attending Physician: Dr. Alex Robison History of Present Illness Pt is a 60 y/o male w hx of CKD, ischemic cardiomyopathy, on dual antiplatelet therapy for hx of NSTEMI, CAD s/p 3 stents placement 11/2019, emphysema; who was scheduled for EGD/Colonoscopy today for evaluation of anemia, heme positive stools. He started to have coughing, SOB, retching prior to endoscopic procedure was started. The procedures were canceled and he was referred to ED for further evaluation. He is afebrile. CXR: 1. Cardiomegaly and emphysema. There is evidence of congestive failure and interstitial edema. 2. Small pleural effusions with bibasilar consolidation which likely represents atelectasis. Correlate clinically for evidence of superimposed pneumonia. Radiographic follow-up to resolution is recommended. 3. Pleural thickening is again seen at the lateral right apex. The right lower lobe nodular density questioned by CT on 11/03/2019 cannot be assessed by x-ray. Allergies Allergy/AdvReac Type Severity Reaction Status Date / Time No Known Allergies Allergy Unknown Verified 02/17/20 12:52 Home Medications Home Medications Medication Instructions Recorded Confirmed Type aspirin 81 mg PO QAM 11/03/19 02/17/20 History amlodipine 10 mg PO QAM 11/30/19 02/17/20 History atorvastatin 80 mg PO HS 11/30/19 02/17/20 History carvedilol 6.25 mg PO BID 11/30/19 02/17/20 History clopidogrel [Plavix] 75 mg PO QAM 11/30/19 02/17/20 History pantoprazole 40 mg PO QAM 11/30/19 02/17/20 History isosorbide dinitrate 30 mg tablet 30 mg PO QAM tab 12/10/19 02/17/20 History cholecalciferol (vitamin D3) 2,000 unit PO QAM 12/24/19 02/17/20 History ferrous sulfate [iron] 325 mg PO QAM 02/16/20 02/17/20 History furosemide 20 mg PO TUTH 02/16/20 02/17/20 History furosemide [Lasix] 40 mg PO QAM 02/16/20 02/17/20 History hydralazine 12.5 mg PO BID 02/16/20 02/17/20 History Patient History Medical History Anemia CAD (coronary artery disease) MIXED AORTIC VALVE DISORDER; MITRAL REGURGITATION Chronic congestive heart failure 02/16/2020 - CURRENTLY DENIES ANY INCREASED SHORTNESS OF BREATH FROM BASELINE. CHEST PAIN HAS SUBSIDED SINCE STARTING HYDRALAZINE Chronic kidney disease STAGE 3-4 COPD (chronic obstructive pulmonary disease) Heme positive stool REASON FOR COLONOSCOPY/EGD Hyperlipidemia Hypertension Hyponatremia CHRONIC Iron deficiency anemia REASON FOR COLONOSCOPY/EGD Ischemic cardiomyopathy EJECTION FRACTION 35-40% Left bundle branch block Nocturnal hypoxemia due to emphysema 3 L OF O2 AT HS. DOES NOT NEED ANY OXYGEN DURING THE DAY. 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 RESIDUAL 40% 2ND OBTUSE MARGINAL STENOSIS. (PATIENT INSTRUCTED TO STAY ON BOTH ASPIRIN AND PLAVIX FOR HIS COLONOSCOPY AND EGD PROCEDURE ON 02/17/2020.) Social History Preferred Language: Bulgarian Communication Ability: Effective Grain Sacker Required: No Beliefs That Will Affect Care: None Current Living Situation: Alone Current Living Situation Comment: unknown pt intubated and sedated. no family present Other Information That Helps Us Care for You: No Feels Safe at Home: Yes Safety Concerns: Feels Safe At This Time Smoking Status: Former smoker Tobacco Type: cigarettes ; Cigarettes Per Day: QUIT 11/02/2019 ; Do You Dip or Chew Tobacco: No ; Smoking End Date: 11/02/2019 ; Second Hand Exposure: No ; Tobacco Cessation Education Requested by Patient: No Hx Alcohol Use: Yes Alcohol type: beer Hx Substance Use: No Review of Systems Review of Systems: All systems reviewed & are unremarkable except as noted in HPI & below Physical Exam Constitutional: WD/WN, vitals as above well groomed, cooperative and comfortable Eyes: PERRL, conjunctivae normal, anicteric sclerae ENMT: external ear and nose normal, oropharynx normal Respiratory: normal respiratory effort; no respiratory distress on BiPAP Cardiovascular: Rate/Rhythm: regular rate and regular rhythm Skin: no rashes, warm and dry no jaundice Psychiatric: A+Ox3, euthymic affect Lymphatic: no lymphedema Results & Data ([facility]) Vital Signs (Past 12 Hours) Vital Signs Temp Pulse Pulse Resp BP Pulse Ox 02/17/20 12:20 88 27 H 99 02/17/20 12:10 94 H 32 H 99 02/17/20 12:09 95 H 35 H 172/81 H 97 02/17/20 12:00 90 34 H 98 02/17/20 11:50 91 H 27 H 98 02/17/20 11:49 36.4 C L 91 H 32 H 146/87 H 88 L 02/17/20 11:46 95 H 28 H 98 02/17/20 11:44 95 H 30 H 95 02/17/20 11:40 102 H 30 H 85 L 02/17/20 11:30 104 H 27 H 80 L 02/17/20 11:29 100 H 20 84 L 02/17/20 11:28 93 H 23 146/87 H 92
--- NOTE | 2020-02-17 13:04 | History & Physical Report ---
Date of Service February 17, 2020 Assessment & Plan (1) Acute respiratory failure with hypoxia: Secondary to pulmonary edema as below. No chest pain to suggest ACS and EKG similar to prior with some right axis. Possible concern for aspiration given retching noted prior to procedure starting therefore will have low threshold to starting antibiotics to cover for aspiration pneumonia if he spikes a fever. Aim O2 sats > 94% in light of recent TX. Continue BiPAP as needed during the day and at night. (2) Acute on chronic heart failure with reduced ejection fraction and diastolic dysfunction: Admit to PCU Multiple hospitalizations since November for heart failure after NSTEMI - patient quickly diureses with small doses of lasix. Flash pulmonary edema and bilateral pleural effusions related to lying flat prior to EGD, holding lasix and given IV fluids this morning. EKG with LBBB similar to prior, will trend troponins. Daily weights, strict I&Os. Lasix 20mg IV given in ER. Additional 40mg IV lasix once he gets to the tucker. Usual home dosing of 40mg QAM (+ additional 20mg on /). Will presumptively start on lasix 40mg IV BID but future dosing to be determined as per renal function and clinical status. Noted history of urinary retention on prior admission requiring kelley catheter and we should have a low threshold to perform bladder scan if output is lower than expected. (3) Ischemic cardiomyopathy: Continue carvedilol. Not on ACEi/ARB presumably due to reduced renal function. LVEF 35-40% with moderate mitral regurgitation. (4) Acute hyponatremia: Suspected due to acute heart failure versus GI losses with bowel prep. Will continue to trend with diuretic use. (5) Left bundle branch block: Noted. Not acute. (6) Chronic kidney disease, stage 3 (moderate): Stable. Continue to monitor Cr with lasix use. (7) Wheezing: Suspected due to pulmonary edema as above rather than COPD exacerbation. Dexamethasone, doxycyline and duonebs given in ER due to concern for this however since patient was feeling well prior to lying flat this is much more consistent with flash pulmonary edema. Given improvement with duonebs will continue these QID but fold further steroids or antibiotics at this stage. (8) CAD (coronary artery disease): s/p 1 MARY to proximal LAD (70%) and 2 MARY to the mid-LAD (95% lesion) on 11/07/2019 (NSTEMI). RCA was completely occluded, but appeared chronic and no intervention done. No chest pain presently. - Continued ASA, Plavix, beta-feli, Imdur, statin (9) Hypertension: Continue home doses of amlodipine, carvedilol, ISMN, hydralazine. Lasix as above. Could consider restarting ACEi if Cr stable. (10) Peripheral vascular disease: s/p right common iliac to right femoral bypass in 1999, aortobifemoral bypass in 06/2004 (11) COPD (chronic obstructive pulmonary disease): On no inhalers for this. No outpatient PFTs. CXR consistent with PFTs and given improvement with duonebs could consider a maintenance inhaler on discharge with PFTs in approx 6 weeks once feeling well. (12) Iron deficiency anemia: Transferrin saturation 4% in December. Will repeat with AM labs. Reason for EGD/colonoscopy. Noted GI consult - I do not feel the patient will be medically optimized for this tomorrow. Given history since TX that he has orthopnea while lying flat unless he can have his head elevated for the duration of the procedure it appears unlikely he will be optimized this admission. Although notably would be safer performed as inpatient. (13) Pulmonary nodule seen on imaging study: Noted on CT on October. Patient reports outpatient CT scan planned as follow up. Possible cause of hyponatremia above with SIADH but suspect this is less likely than GI losses vs. hypervolemia as above.If hyponatremia not correcting with diuretics would entertain this diagnosis more. (14) DVT prophylaxis: Hold off VTE prophylaxis at present and monitor Hgb given investigations for GI bleed. Admission and Anticipated Discharge Date Admission Date: 02/17/20 History of Present Illness Chief Complaint: Shortness of breath Primary Care Provider: Carmen Viramontes PA-C Keron Fall is a 60 year old male with recent NSTEMI who presented to the ER due to acute onset shortness of breath, cough and retching prior to planned outpatient EGD/colonoscopy today for iron def. anemia. Reportedly he held his lasix this morning and was given 400cc IV fluid prior to the procedure. Only became short of breath once he lied down flat. He reports sleeping with two pillows since his heart attack due to shortness of breath when lying flat. Even prior to this episode he has not been able to walk upstairs. He became hypoxic and therefore was transferred to the ER for continued care. He reports feeling well leading up to this procedure. Managed to tolerate the bowel prep. He denies any chest pain, diaphoresis, fevers, chills, palpitations, claudication. Allergies Allergy/AdvReac Type Severity Reaction Status Date / Time No Known Allergies Allergy Unknown Verified 02/17/20 12:52 Home Medications Home Medications Medication Instructions Recorded Confirmed Type aspirin 81 mg PO QAM 11/03/19 02/17/20 History amlodipine 10 mg PO QAM 11/30/19 02/17/20 History atorvastatin 80 mg PO HS 11/30/19 02/17/20 History carvedilol 6.25 mg PO BID 11/30/19 02/17/20 History clopidogrel [Plavix] 75 mg PO QAM 11/30/19 02/17/20 History pantoprazole 40 mg PO QAM 11/30/19 02/17/20 History cholecalciferol (vitamin D3) 2,000 unit PO QAM 12/24/19 02/17/20 History ferrous sulfate [iron] 325 mg PO QAM 02/16/20 02/17/20 History furosemide 20 mg PO TUTH 02/16/20 02/17/20 History furosemide [Lasix] 40 mg PO QAM 02/16/20 02/17/20 History hydralazine 12.5 mg PO BID 02/16/20 02/17/20 History isosorbide mononitrate 30 mg PO DAILY 02/17/20 02/17/20 History Past Med/Surg History Medical History Anemia CAD (coronary artery disease) MIXED AORTIC VALVE DISORDER; MITRAL REGURGITATION Chronic congestive heart failure 02/16/2020 - CURRENTLY DENIES ANY INCREASED SHORTNESS OF BREATH FROM BASELINE. CHEST PAIN HAS SUBSIDED SINCE STARTING HYDRALAZINE Chronic kidney disease STAGE 3-4 COPD (chronic obstructive pulmonary disease) Heme positive stool REASON FOR COLONOSCOPY/EGD Hyperlipidemia Hypertension Hyponatremia CHRONIC Iron deficiency anemia REASON FOR COLONOSCOPY/EGD Ischemic cardiomyopathy EJECTION FRACTION 35-40% Left bundle branch block (Acute) Nocturnal hypoxemia due to emphysema 3 L OF O2 AT HS. DOES NOT NEED ANY OXYGEN DURING THE DAY. 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 RESIDUAL 40% 2ND OBTUSE MARGINAL STENOSIS. (PATIENT INSTRUCTED TO STAY ON BOTH ASPIRIN AND PLAVIX FOR HIS COLONOSCOPY AND EGD PROCEDURE ON 02/17/2020.) Social History Preferred Language: Hebrew Communication Ability: Effective Director Of Event Marketing Required: No Beliefs That Will Affect Care: None Current Living Situation: Alone Current Living Situation Comment: unknown pt intubated and sedated. no family present Other Information That Helps Us Care for You: No Feels Safe at Home: Yes Safety Concerns: Feels Safe At This Time Smoking Status: Former smoker Tobacco Type: cigarettes ; Cigarettes Per Day: QUIT 11/02/2019 ; Do You Dip or Chew Tobacco: No ; Smoking End Date: 11/02/2019 ; Second Hand Exposure: No ; Tobacco Cessation Education Requested by Patient: No Hx Alcohol Use: Yes Alcohol type: beer Hx Substance Use: No Review of Systems Review of Systems: All systems reviewed & are unremarkable except as noted in HPI & below Physical Exam Constitutional: well developed, well nourished and + acute distress (respiratory distress on BiPAP) Eyes: + anicteric sclerae; normal pupil size ENMT: Ears: no external ear abnormality Nose: no external nose abnormality Neck: trachea midline Respiratory: + respiratory distress (on BiPAP), + retractions and + uses accessory muscles; + abnormal respiratory effort, no cough, + not able to speak in complete sentence and normal respiratory pattern Auscultation: no diminished lung sounds, no crackles, no rales, no rhonchi and no wheezes Cardiovascular: Rate/Rhythm: regular rate and regular rhythm Heart Sounds: no murmur Extremities: normal capillary refill; no calf tenderness and no pedal edema Gastrointestinal (Abdomen): normal bowel sounds, soft, nontender, no hepatosplenomegaly Musculoskeletal: no cyanosis or clubbing, extremities motor strength 5/5 Skin: no rashes, warm and dry Neurologic: moves all extremities and awake; no focal motor deficits and not confused Psychiatric: A+Ox3, euthymic affect Lymphatic: no cervical or axillary lymphadenopathy Results & Data Results & Data ([facility]) Vital Signs (Past 12 Hours) Vital Signs Temp Pulse Pulse Resp BP Pulse Ox 02/17/20 12:20 88 27 H 99 02/17/20 12:10 94 H 32 H 99 02/17/20 12:09 95 H 35 H 172/81 H 97 02/17/20 12:00 90 34 H 98 02/17/20 11:50 91 H 27 H 98 02/17/20 11:49 36.4 C L 91 H 32 H 146/87 H 88 L 02/17/20 11:46 95 H 28 H 98 02/17/20 11:44 95 H 30 H 95 02/17/20 11:40 102 H 30 H 85 L 02/17/20 11:30 104 H 27 H 80 L 02/17/20 11:29 100 H 20 84 L 02/17/20 11:28 93 H 23 146/87 H 92 Diagnostic Findings SINGLE VIEW CHEST IMPRESSION: 1. Cardiomegaly and emphysema. There is evidence of congestive failure and interstitial edema. 2. Small pleural effusions with bibasilar consolidation which likely represents atelectasis. Correlate clinically for evidence of superimposed pneumonia. Radiographic follow-up to resolution is recommended. 3. Pleural thickening is again seen at the lateral right apex. The right lower lobe nodular density questioned by CT on 11/03/2019 cannot be assessed by x-ray. ECG Indication: SOB/dyspnea Rate (beats per minute): 90 Rhythm: normal sinus Findings: + LBBB Comparison ECG Date: from (12/26/19) Change: no significant change Code Status & VTE Plan Code Status Full as discussed with the patient VTE Prophylaxis Plan VTE Prophylaxis will be ordered: Yes PG Care Time/CCT Total # of Minutes Spent Total Time Spent with Patient: Total time spent is greater than 50% in c oordination of care (as documented) at patient's floor/unit and/or counseling patient: Coding Level of Care Code 90821 Initial Inpt Care Lvl 3 Diagnoses Acute respiratory failure with hypoxia J96.01 Acute on chronic heart failure with reduced ejection fraction and diastolic dysfunction I50.43 Ischemic cardiomyopathy I25.5 Acute hyponatremia E87.1 Left bundle branch block I44.7 Chronic kidney disease, stage 3 (moderate) N18.3 Wheezing R06.2 CAD (coronary artery disease) I25.10 Associated angina: without angina Coronary Disease-Associated Artery/Lesion type: [place] artery [place] vs. transplanted heart: kake heart Hypertension I10 Peripheral vascular disease I73.9 COPD (chronic obstructive pulmonary disease) J44.9 Iron deficiency anemia D50.9 Iron deficiency anemia type: unspecified iron deficiency Pulmonary nodule seen on imaging study R91.1 DVT prophylaxis Z29.9 (1) CAD (coronary artery disease) Associated angina: without angina Coronary Disease-Associated Artery/Lesion type: [place] artery [place] vs. transplanted heart: k[place] heart Qualified Code(s): I25.10 - Atherosclerotic heart disease of [place] coronary artery without angina pectoris (2) Iron deficiency anemia Iron deficiency anemia type: unspecified iron deficiency Qualified Code(s): D50.9 - Iron deficiency anemia, unspecified
[2020-02-17] MEDS ORDERED: DOXYCYCLINE HYCLATE 100 MG in DEXTROSE 5% 100 ML IV STA (13:05)
[2020-02-17] MEDS ORDERED: DEXAMETHASONE **PF** INJ 10 MG/ML VIAL IV ONE (13:05)
[2020-02-17] MEDS ORDERED: ACETAMINOPHEN 325 MG TAB PO PRN (14:41)
[2020-02-17] MEDS ORDERED: ONDANSETRON INJ 2 MG/ML 2 ML VIAL IV PRN (14:41)
[2020-02-17] MEDS ORDERED: FUROSEMIDE 40 MG in SYRINGE 0 ML IV ONE (15:15)
[2020-02-17] MEDS: ALBUT/IPRATROP 3MG/0.5MG NEB 3 ML VIAL NEB SCH ×2 (15:27→19:06)
--- NOTE | 2020-02-17 16:14 | Electrocardiogram Report ---
Test Reason : Blood Pressure : / mmHG Vent. Rate : 090 BPM Atrial Rate : 090 BPM P-R Int : 146 ms QRS Dur : 154 ms QT Int : 432 ms P-R-T Axes : 059 -19 081 degrees QTc Int : 528 ms Poor data quality, interpretation may be adversely affected Normal sinus rhythm Possible Left atrial enlargement Left bundle branch block Abnormal ECG When compared with ECG of 26-DEC-2019 06:27, QRS axis Shifted right Confirmed by Jean-Claude Payton ([id number]) on 02/17/2020 4:13:55 PM Referred By: REFERRED SELF Confirmed By:Jean-Claude Payton
[2020-02-17 19:10] LABS: Appearance Urine Clear (Clear); Bacteria Urine Automated Negative (Negative); Bilirubin Urine Negative (Negative); Blood Urine Trace (Negative); Color Urine Yellow; Epithelial Cell Urine Auto 0-5 /lpf (0-5); Glucose Urine UA Negative (Negative); Ketones Urine Negative (Negative); Leukocyte Esterase Urine Negative (Negative); Nitrite Urine Negative (Negative); Protein Urine 2+ (Negative); RBC Urine Automated 0-4 /hpf (0-4); Urobilinogen Urine Negative (Negative); WBC Urine Automated 0 /hpf (0-5); pH Urine 5.5 (4.5-7.5)
[2020-02-17 20:08] LABS: BUN Creatinine Ratio 13.9 (10-20); Calcium 8.5 mg/dl (8.5-10.1); Creatinine Clr Calc Pharmacy 34.3 ml/min; Est GFR (African American) 36.7; Est GFR (Non-African American) 31.7; Potassium 4.2 mmol/L (3.5-5.1)
[2020-02-17 20:31] LABS: Troponin I 0.067 ng/ml (0-0.045)
[2020-02-17] MEDS: ATORVASTATIN 40 MG TAB PO SCH (21:17)
[2020-02-17] MEDS: carvediloL 6.25 MG TAB PO SCH (21:17)
[2020-02-18] MEDS: ALBUT/IPRATROP 3MG/0.5MG NEB 3 ML VIAL NEB SCH ×5 (05:38→19:42)
[2020-02-18] MEDS ORDERED: FUROSEMIDE 40 MG in SYRINGE 0 ML IV STA (05:54)
[2020-02-18] MEDS ORDERED: FUROSEMIDE 40 MG/4 ML VIAL IV ONE ×2 (05:54→06:21)
[2020-02-18] MEDS ORDERED: methylPREDNISolone 125 MG/2 ML VIAL ONE (06:00)
[2020-02-18 06:07] LABS: Hematocrit (blood only) 34.6 % (42-52); Hemoglobin 11.7 g/dL (14.0-18.0); Immature Granulocytes # (auto) 0.02 K/uL (0.00-0.02); Immature Granulocytes % (auto) 0.2 %; Lymphocytes # (auto) 1.21 K/uL (1.2-3.4); Lymphocytes % (auto) 13.3 %; Mean Corpuscular Hgb Conc 33.8 g/dL (32-36); Mean Corpuscular Volume 91.8 fL (80-100); Mean Platelet Volume 9.9 fL (7.4-10.4); Monocytes % (auto) 3.3 %; Neutrophils # (auto) 7.57 K/uL (1.4-6.5); Neutrophils % (auto) 83.2 %; Platelet Count 317 K/uL (130-400); RDW Coefficient of Variation 15.6 % (11.5-14.5); Red Blood Count 3.77 M/uL (4.7-6.1)
[2020-02-18 06:15] LABS: Base Excess ABG -8.3 mEq/L (-9-1.8); HCO3 ABG 17 mmol/L (19-24); Oxygen Saturation ABG 80.2 % (90-95); PCO2 ABG 33 mmHg (35-46); PO2 ABG 50 mmHg (80-95); pH ABG 7.32 (7.35-7.45)
[2020-02-18] MEDS ORDERED: methylPREDNISolone 125 MG in SYRINGE 0 ML IV ONE (06:15)
[2020-02-18] MEDS ORDERED: CEFEPIME 2,000 MG in SYRINGE 7.5 ML IV ONE (06:15)
[2020-02-18 06:17] LABS: Allen Test Pos (Pos)
[2020-02-18] MEDS ORDERED: FUROSEMIDE 40 MG in SYRINGE 0 ML IV ONE (06:19)
[2020-02-18] MEDS ORDERED: PANTOprazole 40 MG in SYRINGE 0 ML IV ONE (06:45)
[2020-02-18 06:46] LABS: BUN Creatinine Ratio 13.8 (10-20); Creatinine Clr Calc Pharmacy 30.4 ml/min; Est GFR (African American) 32.8; Est GFR (Non-African American) 28.3; Magnesium 2.1 mg/dl (1.8-2.4); Potassium 4.2 mmol/L (3.5-5.1)
[2020-02-18 06:57] LABS: Thyroid Stimulating Hormone 2.39 uIu/ml (0.300-4.500); Troponin I 0.063 ng/ml (0-0.045)
[2020-02-18] MEDS ORDERED: MoRPHine SULFATE 2 MG/ML CARP ONE (06:57)
[2020-02-18] MEDS ORDERED: MoRPHine SULFATE 2 MG/ML CARP IV STA (07:15)
--- NOTE | 2020-02-18 07:40 | Critical Care Consultation ---
Date of Consultation February 18, 2020 Assessment & Plan (1) Admitted to intensive care unit: Reason Critically Ill: 60-year-old male admitted for CHF exacerbation, transferred to the ICU for worsening S OB with hypoxia Neuro - [facility] ICU: Negative Cardiac - Ischemic cardiomyopathy/diastolic heart failure with reduced EF/aortic regurg -EF from December 35%, global hypokinesis -Mild elevation in troponin likely attributed to CKD/ischemic demand, will trend -EKG sinus rhythm with chronic LBBB -Elevated BNP -We will continue with diuresis -Monitor strict I's and O's and daily weights -Continue Imdur, Plavix, Coreg, Lipitor, ASA regimen Respiratory - Hypoxic respiratory failure/COPDpatient became significantly hypoxic respiratory distress following 400 mL bolus yesterday -Most likely CHF exacerbation given history, no indications for infection at this time -Hypoxia worsened despite high flow nasal cannula, transition to BiPAP and wean as tolerated -Chest x-ray consistent with pulmonary congestion -Patient was previously started on Solu-Medrol and nebs for COPD -Given 40 Lasix prior to transfer, will continue to diuresis as indicated -Minimize IV intake, monitor strict I's and O's -Continuous monitoring pulse ox GI - GIB?Patient with prior heme positive stools and anemia, was undergoing EGD to rule out GI bleed -Continue PPI -GI consulted, follow-up recs -Monitor RENAL/LYTES - CKD stage IIIcreatinine at baseline, will trend -Careful with IV fluids as patient is in CHF exacerbation -Avoid nephrotoxins -Monitor routine BMPs, replete electrolytes as necessary - Foleystrict I's and as ENDO - No history diabetes or thyroid disease, TSH within normal limits ICU hyperglycemic protocol HEME - Anemiahistory of iron deficiency anemia and recent heme positive stools -Was scheduled for EGD yesterday but canceled due to respiratory insufficien cy -H&H currently stable, will follow up with GI in regards to rescheduling -Continue ferrous sulfate -Trend CBCs ID - Patient afebrile, WBC within normal limits No indication for infectious process at this time LINES/IV ACCESS - Peripheral IVs DVT PROPHYLAXIS - SCDs, no anticoagulation as patient is under investigation for GI bleeding I have personally spent 40 minutes of critical care time in the direct management of this patient. This is a life/limb threatening event. This includes time spent evaluating patient, direct bedside care, chart review, placing orders, interpretation of diagnostic studies, discussion with consultants, patient, and family members, as well as other required patient management activities. This time is exclusive of all separately billable procedures, and teaching time and separate from and in addition to any other critical care service time. Thank you for allowing us to participate in the care of this patient. Please refer to my attending physician's documentation for any further recommendations. (2) Chronic kidney disease, stage 3 (moderate): (3) Acute hyponatremia: (4) Acute respiratory failure with hypoxia: (5) Pulmonary edema: (6) Congestive heart disease: (7) Heme positive stool: (8) Aortic regurgitation: (9) Acute on chronic heart failure with reduced ejection fraction and diastolic dysfunction: (10) COPD (chronic obstructive pulmonary disease): Supervising Physician Co-Signing Physician Notes I have personally evaluated and examined this patient. I agree with assessment and plan of Cris JOHNSON. Patient improved during my examination. Weaning noninvasive pressure support. Should be able to be discontinued later today. Patient to ambulate about the room and wear SCDs in order to avoid chemoprophylaxis. Discussed with gastroenterology plan for EGD tomorrow, n.p.o. after midnight, additional 1 L of GoLYTELY not full container for bowel prep. I feel it is prudent that the patient can remain in the ICU given fluid issues. Continue volume restriction despite GoLYTELY to avoid flash pulmonary edema. Patient was discussed on multi disciplinary rounds. History of Present Illness Attending Physician: Bhavesh Frye DO History of Present Illness Mr. Fall is a 60-year-old male with past medical history of ischemic cardiomyopathy with a EF of 35%, recent and STEMI, CKD, LBBB, HTN, aortic regurg who presented to the hospital yesterday for a scheduled outpatient EGD for work- up of anemia and suspected GI bleed. Preprocedure he received 400 cc of crystalloid and became short of breath and hypoxic and was transferred to the ER and admitted to the hospital. He was initially placed on BiPAP but had been switched to HF NC for patient's comfort last night. He continued to decompensate and became increasingly hypoxic, tachypneic and was exhibiting labored breathing and use of accessory muscles. At this point I was contacted regarding the patient's respiratory distress and patient was transferred to the ICU. He was given IV Lasix prior to transfer and placed on BiPAP on arrival and showed significant improvement. On arrival to the ICU patient reports significant shortness of breath and anxi ety which was significantly improved with application of BiPAP and IV morphine. He currently denies recent illness, fevers, contact with COVID-19 patient. He does report having to sleep upright sentences DE in November. He denies headache, dizziness, sore throat, chest pain, palpitations, abdominal pain, nausea or vomiting. Patient to remain in ICU for further management at this time. Allergies Allergy/AdvReac Type Severity Reaction Status Date / Time No Known Allergies Allergy Unknown Verified 02/17/20 12:52 Home Medications Home Medications Medication Instructions Recorded Confirmed Type aspirin 81 mg PO QAM 11/03/19 02/17/20 History amlodipine 10 mg PO QAM 11/30/19 02/17/20 History atorvastatin 80 mg PO HS 11/30/19 02/17/20 History carvedilol 6.25 mg PO BID 11/30/19 02/17/20 History clopidogrel [Plavix] 75 mg PO QAM 11/30/19 02/17/20 History pantoprazole 40 mg PO QAM 11/30/19 02/17/20 History cholecalciferol (vitamin D3) 2,000 unit PO QAM 12/24/19 02/17/20 History ferrous sulfate [iron] 325 mg PO QAM 02/16/20 02/17/20 History furosemide 20 mg PO TUTH 02/16/20 02/17/20 History furosemide [Lasix] 40 mg PO QAM 02/16/20 02/17/20 History hydralazine 12.5 mg PO BID 02/16/20 02/17/20 History isosorbide mononitrate 30 mg PO DAILY 02/17/20 02/17/20 History Patient History Medical History Anemia CAD (coronary artery disease) MIXED AORTIC VALVE DISORDER; MITRAL REGURGITATION Chronic congestive heart failure 02/16/2020 - CURRENTLY DENIES ANY INCREASED SHORTNESS OF BREATH FROM BASELINE. CHEST PAIN HAS SUBSIDED SINCE STARTING HYDRALAZINE Chronic kidney disease STAGE 3-4 COPD (chronic obstructive pulmonary disease) Heme positive stool REASON FOR COLONOSCOPY/EGD Hyperlipidemia Hypertension Hyponatremia CHRONIC Iron deficiency anemia REASON FOR COLONOSCOPY/EGD Ischemic cardiomyopathy EJECTION FRACTION 35-40% Left bundle branch block (Acute) Nocturnal hypoxemia due to emphysema 3 L OF O2 AT HS. DOES NOT NEED ANY OXYGEN DURING THE DAY. 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 RESIDUAL 40% 2ND OBTUSE MARGINAL STENOSIS. (PATIENT INSTRUCTED TO STAY ON BOTH ASPIRIN AND PLAVIX FOR HIS COLONOSCOPY AND EGD PROCEDURE ON 02/17/2020.) Social History Preferred Language: Wolof Communication Ability: Effective Chart Clerk Required: No Beliefs That Will Affect Care: None Current Living Situation: Alone Current Living Situation Comment: unknown pt intubated and sedated. no family present Other Information That Helps Us Care for You: No Feels Safe at Home: Yes Safety Concerns: Feels Safe At This Time Smoking Status: Former smoker Tobacco Type: cigarettes ; Cigarettes Per Day: QUIT 11/02/2019 ; Do You Dip or Chew Tobacco: No ; Smoking End Date: 11/02/2019 ; Second Hand Exposure: No ; Tobacco Cessation Education Requested by Patient: No Hx Alcohol Use: Yes Alcohol type: beer Hx Substance Use: No Review of Systems Review of Systems: All systems reviewed & are unremarkable except as noted in HPI & below Physical Exam Constitutional: cooperative and + in distress Eyes: PERRL, conjunctivae normal, anicteric sclerae Respiratory: Fine crackles auscultated bilaterally in all lung mccormack, symmetrical chest wall movement, tachypnea, nonproductive cough, labored breathing with use of accessory muscles. Cardiovascular: Rate/Rhythm: regular rate and regular rhythm Heart Sounds: normal S1 and normal S2 Extremities: normal capillary refill; no edema Gastrointestinal (Abdomen): normal bowel sounds, soft, nontender, no hepatosp lenomegaly Skin: no rashes, warm and dry Neurologic: PERRL, EOMI, accommodation nl, no face palsy, no dysarthria Psychiatric: A+Ox3, euthymic affect Genitourinary: Indwelling Ding present Results & Data Results & Data ([facility]) Vital Signs (Past 12 Hours) Vital Signs Temp Pulse Pulse Resp BP BP Pulse Ox 02/18/20 07:04 97 H 94 02/18/20 06:55 109 H 97 02/18/20 06:54 112 H 93 02/18/20 06:50 118 H 118 H 34 H 79 L 02/18/20 06:21 125 H 36 H 140/77 91 02/18/20 06:05 113 H 36 H 91 02/18/20 05:38 113 H 36 H 30 L 02/18/20 03:15 36.6 C 79 17 121/69 98 02/18/20 00:43 78 16 97 02/17/20 23:51 36.6 C 74 19 134/71 97 02/17/20 22:07 81 23 100 02/17/20 19:46 36.8 C 72 17 143/77 H 100 Coding Level of Care Code Critical Care 1st 30-74 mins Diagnoses Admitted to intensive care unit Z78.9 Chronic kidney disease, stage 3 (moderate) N18.3 Acute hyponatremia E87.1 Acute respiratory failure with hypoxia J96.01 Pulmonary edema J81.0 Chronicity: acute Congestive heart disease I50.9 Heme positive stool R19.5 Aortic regurgitation I35.1 Cardiac valve disease etiology: nonrheumatic Acute on chronic heart failure with reduced ejection fraction and diastolic dysfunction I50.43 COPD (chronic obstructive pulmonary disease) J44.9 (1) Aortic regurgitation Cardiac valve disease etiology: nonrheumatic Qualified Code(s): I35.1 - Nonrheumatic aortic (valve) insufficiency (2) Pulmonary edema Chronicity: acute Qualified Code(s): J81.0 - Acute pulmonary edema
--- NOTE | 2020-02-18 07:44 | XRay Report ---
XR chest 1V portable HISTORY: 60 years-old Male SOB acute shortness of breath COMPARISON: Chest radiograph 02/17/2020, CTA chest 11/03/2019 TECHNIQUE: Portable AP view of the chest FINDINGS: Cardiac silhouette is enlarged. Pulmonary vascular congestion with interstitial coarsening, not signi ficant changed. No pneumothorax. Small pleural effusions with bibasilar mild consolidation. Emphysema . There is no significant change from comparison study. Degenerative changes of the shoulders and spi ne. Dense opacity of the lateral aspect right upper hemithorax appears unchanged and may correlate wi th soft tissue density seen within this distribution on comparison CTA. IMPRESSION: 1. Cardiomegaly with unchanged pulmonary edema. 2. Small pleural effusions with bibasilar opacities suggestive of atelectasis versus pneumonitis. 3. Emphysema. ACT 112: Negative or not required by law. The above report was generated using voice recognition software. It may contain grammatical, syntax o r spelling errors. Electronically signed by: Ranulfo Horton M.D. 02/18/2020 7:42 AM
[2020-02-18] MEDS ORDERED: AMLODIPINE BESYLATE 5 MG TAB PO SCH (09:00)
[2020-02-18] MEDS ORDERED: PANTOprazole 40 MG TAB PO SCH (09:00)
[2020-02-18] MEDS: FERROUS SULFATE 325 MG TAB PO SCH (09:10)
[2020-02-18] MEDS: ASPIRIN 81 MG ECTAB PO SCH (09:11)
[2020-02-18] MEDS: PANTOprazole 40 MG TAB PO SCH (09:12)
[2020-02-18] MEDS: ISOSORBIDE MONO EXTENDED REL 30 MG TABCR PO SCH (09:12)
[2020-02-18] MEDS: CHOLECALCIFEROL 1,000 UNITS 25 MCG TAB PO SCH (09:12)
[2020-02-18] MEDS: carvediloL 6.25 MG TAB PO SCH ×2 (09:13→20:09)
[2020-02-18] MEDS: CLOPIDOGREL BISULFATE 75 MG TAB PO SCH (09:13)
[2020-02-18] MEDS ORDERED: BUMETANIDE 0.5 MG in SYRINGE 0 ML IV ONE (10:15)
[2020-02-18] MEDS ORDERED: POTASSIUM CHLORIDE 20 MEQ TABCR PO ONE (10:15)
--- NOTE | 2020-02-18 10:52 | Gastroenterology Progress Note ---
Date of Service February 18, 2020 Assessment & Plan (1) Iron deficiency anemia: (2) Heme positive stool: (3) Respiratory distress: (4) Congestive heart disease: (5) Pulmonary edema: Pt is a 60 y/o male w hx of anemia, heme positive stools scheduled yesterday for EGD/Colonoscopy evals but this was aborted due to pt developed flash pulmonary edema w IVF. He was transferred to ICU overnight due to continued respiratory distress, maintained on BiPAP. Blood ct stable, no abd pain, n/v. - Will continue to evaluate pt's condition and defer endoscopic workup until his cardiopulmonary status is optimized and stable. If he's able to tolerate being off BiPAP, may have CL diet from our standpoint Admission and Anticipated Discharge Date Admission Date: February 17, 2020 Supervising Physician Co-Signing Physician Notes I performed a history and physical examination of the patient today, including specifically on physical exam - soft abdomen. I have discussed the patient's management with the advanced practitioner. Please refer to the nurse practitioner's note for the documented findings and plan of care. Significantly improved today. EGD/colonoscopy tomorrow. Subjective Pt sitting up in ICU bed, on BiPAP 50% 92%. Denies CP, reports breathing a little better compared to a few hours ago. Per hospitalist pt couldn't tolerate being off BiPAP even for 5 mins. Denies abd pain, n/v symptoms. Review of Systems Review of Systems: All systems reviewed & are unremarkable except as noted in HPI & below Physical Exam Constitutional: + frail appearing, well groomed, cooperative and comfortable Eyes: PERRL, conjunctivae normal, anicteric sclerae ENMT: external ear and nose normal, oropharynx normal Respiratory: Auscultation: + crackles and + rhonchi on BiPAP Cardiovascular: Rate/Rhythm: regular rate and regular rhythm Skin: no rashes, warm and dry no jaundice Psychiatric: A+Ox3, euthymic affect Lymphatic: no lymphedema Results & Data ([facility]) Vital Signs (Past 12 Hours) Vital Signs Temp Pulse Pulse Resp BP BP Pulse Ox 02/18/20 10:16 35.7 C L 89 20 137/80 83 L 02/18/20 10:13 96 H 25 H 99 02/18/20 09:00 96 H 139/72 98 02/18/20 08:00 100 H 22 147/81 H 98 04/15/20 07:44 94 H 02/18/20 07:04 97 H 94 02/18/20 07:00 35.7 C L 100 H 22 128/74 98 02/18/20 06:55 109 H 97 02/18/20 06:54 112 H 93 02/18/20 06:50 118 H 118 H 34 H 79 L 02/18/20 06:21 125 H 36 H 140/77 91 02/18/20 06:05 113 H 36 H 91 02/18/20 05:38 113 H 36 H 30 L 02/18/20 03:15 36.6 C 79 17 121/69 98 02/18/20 00:43 78 16 97 02/17/20 23:51 36.6 C 74 19 134/71 97 (1) Pulmonary edema Chronicity: acute Qualified Code(s): J81.0 - Acute pulmonary edema (2) Iron deficiency anemia Iron deficiency anemia type: unspecified iron deficiency Qualified Code(s): D50.9 - Iron deficiency anemia, unspecified
[2020-02-18] MEDS: DOCUSATE SODIUM 100 MG CAP PO SCH ×2 (13:14→20:09)
--- NOTE | 2020-02-18 13:24 | Hospitalist Progress Note ---
Date of Service February 18, 2020 Assessment & Plan (1) Acute respiratory failure with hypoxia: Secondary to significant acute CHF as described below. Patient seems to be tolerating BiPAP for now and should be continued while the patient is being diuresed. (2) Acute on chronic heart failure with reduced ejection fraction and diastolic dysfunction: Patient has combined systolic and diastolic failure. Acute component causing hypoxia at this time. Patient is previously documented LVEF of 35-40%. Currently being diuresed with Lasix 40 mg every 12 hours. Fluid balance over the past 24 hours is -540 mL's but the patient was just yesterday afternoon. Considering significant cardiac history, would suggest cardiology consultation, will defer to planishing press operator as he is in the ICU. (3) Ischemic cardiomyopathy: Continue carvedilol. Not on ACEi/ARB presumably due to reduced renal function. LVEF 35-40% with moderate mitral regurgitation. (4) Acute hyponatremia: Suspected due to acute heart failure versus GI losses with bowel prep. Will continue to trend with diuretic use. (5) Left bundle branch block: Noted. Not acute. (6) Chronic kidney disease, stage 3 (moderate): Stable. Continue to monitor Cr with lasix use. (7) Wheezing: Suspected due to pulmonary edema as above rather than COPD exacerbation. Dexamethasone, doxycyline and duonebs given in ER due to concern for this however since patient was feeling well prior to lying flat this is much more consistent with flash pulmonary edema. I believe the patient's pathology is more our cardiac event pulmonary, hold further antibiotics and steroids. (8) CAD (coronary artery disease): s/p 1 MARY to proximal LAD (70%) and 2 MARY to the mid-LAD (95% lesion) on 11/07/2019 (NSTEMI). RCA was completely occluded, but appeared chronic and no intervention done. No chest pain presently. - Continued ASA, Plavix, beta-feli, Imdur, statin (9) Hypertension: Continue home doses of amlodipine, carvedilol, ISMN, hydralazine. Lasix as above. Could consider restarting ACEi if Cr stable. (10) Peripheral vascular disease: s/p right common iliac to right femoral bypass in 1999, aortobifemoral bypass in 06/2004 (11) COPD (chronic obstructive pulmonary disease): On no inhalers for this. No outpatient PFTs. CXR consistent with PFTs and given improvement with duonebs could consider a maintenance inhaler on discharge with PFTs in approx 6 weeks once feeling well. (12) Iron deficiency anemia: Transferrin saturation 4% in December. Will repeat with AM labs. Reason for EGD/colonoscopy. Noted GI consult -patient has known iron deficiency and was initially scheduled for an EGD and colonoscopy to be done electively to rule out GI sources of bleeding. I did speak to the endoscopy lab earlier today. Considering the patient's significant cardiac issues and active CHF, I did request that this procedure be postponed until the patient is more optimized from that standpoint. Therefore the procedure is on hold for the time being. (13) Pulmonary nodule seen on imaging study: Noted on CT on October. Patient reports outpatient CT scan planned as follow up. Possible cause of hyponatremia above with SIADH but suspect this is less likely than GI losses vs. hypervolemia as above.If hyponatremia not correcting with diuretics would entertain this diagnosis more. (14) DVT prophylaxis: Hold off VTE prophylaxis at present and monitor Hgb given investigations for GI bleed. Admission and Anticipated Discharge Date Admission Date: February 17, 2020 Subjective Patient seen and examined earlier today. He is awake alert in no distress. He is currently on BiPAP which is tolerating well. He does admit to some orthopnea if he tries to lie flat. He tells me that early in the morning he was taken off BiPAP but was having significant shortness of breath within 5 minutes in the mask needed to be replaced. He denies any chest pain. Physical Exam Constitutional: cooperative; no acute distress Neck: trachea midline, no thyromegaly Respiratory: normal respiratory effort Auscultation: lungs clear to auscultation bilaterally and + rales (Coarse rales bilaterally, no dullness to percussion); no crackles, no rhonchi and no wheezes Cardiovascular: Rate/Rhythm: regular rate and regular rhythm Heart Sounds: normal S1 and normal S2 Vessels: + JVD Extremities: + pedal edema (Minimal, patient has SCDs in place) Gastrointestinal (Abdomen): Inspection/Auscultation: abdomen normal to inspection Percussion/Palpation: abdomen soft; abdomen nontender, no guarding, abdomen not rigid and no hepatosplenomegaly Skin: no rashes, warm and dry Results & Data Results & Data ([facility]) Vital Signs (Past 12 Hours) Vital Signs Temp Pulse Pulse Resp BP BP Pulse Ox 02/18/20 12:00 36.5 C 100 H 22 129/70 91 02/18/20 11:01 76 76 17 97 02/18/20 11:00 36.5 C 80 20 135/71 99 02/18/20 10:16 35.7 C L 89 20 137/80 96 02/18/20 10:13 96 H 25 H 99 02/18/20 09:00 96 H 139/72 98 02/18/20 08:00 100 H 22 147/81 H 98 02/18/20 07:44 94 H 02/18/20 07:04 97 H 94 02/18/20 07:00 35.7 C L 100 H 22 128/74 98 02/18/20 06:55 109 H 97 02/18/20 06:54 112 H 93 02/18/20 06:52 85 L 02/18/20 06:50 118 H 118 H 34 H 79 L 02/18/20 06:21 125 H 36 H 140/77 91 02/18/20 06:05 113 H 36 H 91 02/18/20 05:38 113 H 36 H 30 L 02/18/20 03:15 36.6 C 79 17 121/69 98 PG Care Time/CCT Total # of Minutes Spent Total Time Spent with Patient: Total time spent is greater than 50% in coordination of care (as documented) at patient's floor/unit and/or counseling patient: Coding Level of Care Code 05170 Subseq Hosp Care Lvl 2 Diagnoses Acute respiratory failure with hypoxia J96.01 Acute on chronic heart failure with reduced ejection fraction and diastolic dysfunction I50.43 Ischemic cardiomyopathy I25.5 Acute hyponatremia E87.1 Left bundle branch block I44.7 Chronic kidney disease, stage 3 (moderate) N18.3 Wheezing R06.2 CAD (coronary artery disease) I25.10 Coronary Disease-Associated Artery/Lesion type: [place] artery Pala vs. transplanted heart: iliamna heart Associated angina: without angina Hypertension I10 Peripheral vascular disease I73.9 COPD (chronic obstructive pulmonary disease) J44.9 Iron deficiency anemia D50.9 Iron deficiency anemia type: unspecified iron deficiency Pulmonary nodule seen on imaging study R91.1 DVT prophylaxis Z29.9 (1) CAD (coronary artery disease) Coronary Disease-Associated Artery/Lesion type: [place] artery Pal[place] vs. transplanted heart: ili[place]na heart Associated angina: without angina Qualified Code(s): I25.10 - Atherosclerotic heart disease of [place] coronary artery without angina pectoris (2) Iron deficiency anemia Iron deficiency anemia type: unspecified iron deficiency Qualified Code(s): D50.9 - Iron deficiency anemia, unspecified
[2020-02-18] MEDS ORDERED: methylPREDNISolone 60 MG in SYRINGE 0 ML IV SCH (14:00)
[2020-02-18] MEDS ORDERED: LAVAGE SOLUTION 4000ML PO SCH (14:45)
[2020-02-18] MEDS: LAVAGE SOLN 240ML BOTTLE PO SCH ×4 (16:46→18:28)
[2020-02-18] MEDS: ATORVASTATIN 40 MG TAB PO SCH (20:10)
[2020-02-18] MEDS: MAGNESIUM OXIDE 400 MG TAB PO SCH (20:11)
[2020-02-19 04:16] LABS: Basophils # (auto) 0.01 K/uL (0-0.2); Basophils % (auto) 0.1 %; Hematocrit (blood only) 30.6 % (42-52); Hemoglobin 10.4 g/dL (14.0-18.0); Immature Granulocytes # (auto) 0.03 K/uL (0.00-0.02); Immature Granulocytes % (auto) 0.3 %; Lymphocytes # (auto) 0.85 K/uL (1.2-3.4); Lymphocytes % (auto) 7.3 %; Mean Corpuscular Hemoglobin 30.8 pg (25-34); Mean Corpuscular Volume 90.5 fL (80-100); Mean Platelet Volume 9.4 fL (7.4-10.4); Monocytes # (auto) 0.97 K/uL (0.11-0.59); Monocytes % (auto) 8.3 %; Neutrophils # (auto) 9.77 K/uL (1.4-6.5); Platelet Count 264 K/uL (130-400); RDW Coefficient of Variation 15.9 % (11.5-14.5); RDW Standard Deviation 52.6 fL (36.4-46.3); Red Blood Count 3.38 M/uL (4.7-6.1); White Blood Count 11.63 K/uL (4.8-10.8)
[2020-02-19 04:38] LABS: Albumin Level 3.4 gm/dl (3.4-5.0); BUN Creatinine Ratio 15.6 (10-20); Calcium 8.6 mg/dl (8.5-10.1); Est GFR (African American) 28.7; Est GFR (Non-African American) 24.7; Magnesium 2.1 mg/dl (1.8-2.4)
[2020-02-19 04:40] LABS: Albumin Globulin Ratio 0.9 (0.9-2); Bilirubin,Total 0.5 mg/dl (0.2-1); Globulin 3.6 gm/dl (2.5-4.0)
[2020-02-19] MEDS: ALBUT/IPRATROP 3MG/0.5MG NEB 3 ML VIAL NEB SCH ×4 (08:00→19:58)
[2020-02-19] MEDS ORDERED: LIDOCAINE HCL 2% 2 ML VIAL/AMP(20MG/ML) INFIL ONE (08:52)
[2020-02-19] MEDS ORDERED: PROPOFOL IV EMULSION 10 MG/ML 20 ML VIAL IV ONE (08:52)
--- NOTE | 2020-02-19 08:52 | Critical Care Progress Note ---
Date of Service February 19, 2020 Assessment & Plan (1) Admitted to intensive care unit: Reason Critically Ill: 60-year-old male admitted for CHF exacerbation, transferred to the ICU for worsening S OB with hypoxia Neuro - CAM ICU: Negative Cardiac - Ischemic cardiomyopathy/diastolic heart failure with reduced EF/aortic regurg -EF from December 35%, global hypokinesis -Mild elevation in troponin likely attributed to CKD/ischemic demand, will trend -EKG sinus rhythm with chronic LBBB -Restarting Lasix today Respiratory - Hypoxic respiratory failure/COPD: Improved y -On minimal nasal cannula GI - Gastritis Colon polyps -Status post EGD and colonoscopy RENAL/LYTES - CKD stage IIIcreatinine at baseline - Foleydiscontinue today ENDO - No history diabetes or thyroid disease, TSH within normal limits ICU hyperglycemic protocol HEME - Anemiahistory of iron deficiency anemia and recent heme positive stools -Was scheduled for EGD yesterday but canceled due to respiratory insufficiency -H&H currently stable, will follow up with GI in regards to rescheduling -Continue ferrous sulfate ID - Patient afebrile, WBC within normal limits No indication for infectious process at this time LINES/IV ACCESS - Peripheral IVs DVT PROPHYLAXIS - SCDs, patient is also ambulatory no strong indication for chemical prophylaxis Disposition: Patient stable for downgrade out of ICU. (2) Chronic kidney disease, stage 3 (moderate): (3) Acute hyponatremia: (4) Acute respiratory failure with hypoxia: (5) Pulmonary edema: (6) Congestive heart disease: (7) Heme positive stool: (8) Aortic regurgitation: (9) Acute on chronic heart failure with reduced ejection fraction and diastolic dysfunction: (10) COPD (chronic obstructive pulmonary disease): Admission and Anticipated Discharge Date Admission Date: February 17, 2020 Subjective Finished bowel prep overnight. Went to endoscopy and has subsequently returned. Patient not complaining of chest pain shortness of breath, lightheadedness or dizziness. Feels reasonably back to baseline, would like to know if he needs to take his Lasix for today. Review of Systems Review of Systems: As per the HPI. Physical Exam Physical Exam: General: Alert. nontoxic. Skin: Warm, dry, Head: Atraumatic Ears, nose, mouth and throat: airway patent Cardiovascular: Normal peripheral perfusion Respiratory: no respiratory distress Gastrointestinal: Non distended Musculoskeletal: No deformity Results & Data Results & Data ([facility]) Vital Signs (Past 12 Hours) Vital Signs Temp Pulse Pulse Resp BP BP Pulse Ox 02/19/20 08:30 81 132/72 91 02/19/20 08:00 70 19 97 02/19/20 07:30 36.7 C 68 129/74 98 02/19/20 06:00 84 19 97 02/19/20 05:40 79 17 138/76 96 02/19/20 05:00 36.8 C 66 69 16 132/79 96 02/19/20 04:00 36.8 C 74 20 131/69 95 02/19/20 03:35 105 H 24 98 02/19/20 03:00 36.8 C 70 22 131/72 02/19/20 02:00 83 15 97 02/19/20 01:50 77 14 95 02/19/20 01:41 79 13 96 02/19/20 01:40 73 13 132/65 98 02/19/20 01:30 77 13 93 02/19/20 01:20 83 16 92 02/19/20 01:10 83 16 95 02/19/20 01:00 79 12 96 02/19/20 00:41 95 H 18 148/98 H 98 02/19/20 00:00 36.7 C 93 H 17 96 02/18/20 23:40 87 16 122/78 97 02/18/20 23:00 79 16 93 02/18/20 22:46 88 18 96 02/18/20 22:00 95 H 19 92 02/18/20 21:50 98 H 19 92 02/18/20 21:41 86 17 94 02/18/20 21:40 92 H 16 125/72 92 02/18/20 21:30 92 H 20 92 02/18/20 21:20 105 H 21 91 02/18/20 21:10 112 H 15 88 L 02/18/20 21:00 106 H 21 89 L Laboratory Results 02/19/20 02/19/20 02/19/20 Range/Units 11:47 04:04 04:04 WBC 11.63 H (4.8-10.8) K/uL RBC 3.38 L (4.7-6.1) M/uL Hgb 10.4 L (14.0-18.0) g/dL Hct 30.6 L (42-52) % MCV 90.5 (80-100) fL MCH 30.8 (25-34) pg MCHC 34.0 (32-36) g/dL RDW Std Deviation 52.6 H (36.4-46.3) fL RDW Coeff of Monika 15.9 H (11.5-14.5) % Plt Count 264 (130-400) K/uL MPV 9.4 (7.4-10.4) fL Immature Gran % (Auto) 0.3 % Neut % (Auto) 84.0 % Lymph % (Auto) 7.3 % [place] % (Auto) 8.3 % Eos % (Auto) 0.0 % Baso % (Auto) 0.1 % Immature Gran # (Auto) 0.03 H (0.00-0.02) K/uL Neut # (Auto) 9.77 H (1.4-6.5) K/uL Lymph # (Auto) 0.85 L (1.2-3.4) K/uL [place] # (Auto) 0.97 H (0.11-0.59) K/uL Eos # (Auto) 0.00 (0-0.5) K/uL Baso # (Auto) 0.01 (0-0.2) K/uL Sodium 124 L (136-145) mmol/L Potassium 4.0 (3.5-5.1) mmol/L Chloride 98 (98-107) mmol/L Carbon Dioxide 21 (21-32) mmol/L Anion Gap 5.0 (3-11) BUN 41 H (7-18) mg/dl Creatinine 2.65 H (0.6-1.4) mg/dl Est Cr Clr Drug Dosing 28.0 ml/min Est GFR ( Amer) 28.7 Est GFR (Non-Af Amer) 24.7 BUN/Creatinine Ratio 15.6 (10-20) Glucose 115 H (70-99) mg/dl POC Glucose 109 H (70-99) mg/dl Calcium 8.6 (8.5-10.1) mg/dl Phosphorus 4.0 (2.5-4.9) mg/dl Magnesium 2.1 (1.8-2.4) mg/dl Total Bilirubin 0.5 (0.2-1) mg/dl AST 103 H (15-37) U/L ALT 28 (12-78) U/L Alkaline Phosphatase 66 (45-117) U/L Total Protein 7.0 (6.4-8.2) gm/dl Albumin 3.4 (3.4-5.0) gm/dl Globulin 3.6 (2.5-4.0) gm/dl Albumin/Globulin Ratio 0.9 (0.9-2) 02/18/20 Range/Units 16:18 WBC (4.8-10.8) K/uL RBC (4.7-6.1) M/uL Hgb (14.0-18.0) g/dL Hct (42-52) % MCV (80-100) fL MCH (25-34) pg MCHC (32-36) g/dL RDW Std Deviation (36.4-46.3) fL RDW Coeff of Monika (11.5-14.5) % Plt Count (130-400) K/uL MPV (7.4-10.4) fL Immature Gran % (Auto) % Neut % (Auto) % Lymph % (Auto) % [place] % (Auto) % Eos % (Auto) % Baso % (Auto) % Immature Gran # (Auto) (0.00-0.02) K/uL Neut # (Auto) (1.4-6.5) K/uL Lymph # (Auto) (1.2-3.4) K/uL [place] # (Auto) (0.11-0.59) K/uL Eos # (Auto) (0-0.5) K/uL Baso # (Auto) (0-0.2) K/uL Sodium (136-145) mmol/L Potassium (3.5-5.1) mmol/L Chloride (98-107) mmol/L Carbon Dioxide (21-32) mmol/L Anion Gap (3-11) BUN (7-18) mg/dl Creatinine (0.6-1.4) mg/dl Est Cr Clr Drug Dosing ml/min Est GFR ( Amer) Est GFR (Non-Af Amer) BUN/Creatinine Ratio (10-20) Glucose (70-99) mg/dl POC Glucose 130 H (70-99) mg/dl Calcium (8.5-10.1) mg/dl Phosphorus (2.5-4.9) mg/dl Magnesium (1.8-2.4) mg/dl Total Bilirubin (0.2-1) mg/dl AST (15-37) U/L ALT (12-78) U/L Alkaline Phosphatase (45-117) U/L Total Protein (6.4-8.2) gm/dl Albumin (3.4-5.0) gm/dl Globulin (2.5-4.0) gm/dl Albumin/Globulin Ratio (0.9-2) Coding Level of Care Code 56665 Subseq Hosp Care Lvl 3 Diagnoses Admitted to intensive care unit Z78.9 Chronic kidney disease, stage 3 (moderate) N18.3 Acute hyponatremia E87.1 Acute respiratory failure with hypoxia J96.01 Pulmonary edema J81.0 Chronicity: acute Congestive heart disease I50.9 Heme positive stool R19.5 Aortic regurgitation I35.1 Cardiac valve disease etiology: nonrheumatic Acute on chronic heart failure with reduced ejection fraction and diastolic dysfunction I50.43 COPD (chronic obstructive pulmonary disease) J44.9 (1) Aortic regurgitation Cardiac valve disease etiology: nonrheumatic Qualified Code(s): I35.1 - Nonrheumatic aortic (valve) insufficiency (2) Pulmonary edema Chronicity: acute Qualified Code(s): J81.0 - Acute pulmonary edema
--- NOTE | 2020-02-19 09:13 | Anesthesiology Consultation ---
Date of Service February 19, 2020 Assessment & Plan (1) Encounter for pre-operative examination: Chart Review Chart Review: Acceptable Risk for Surgery and Patient NOT seen in Pre Admission Testing Consults Requested none ASA ASA4 Proposed Anesthesia Anesthesia Type: MAC Risk / Benefits Reviewed With: PT / POA / Parent / Guardian, Accepts Plan and Informed Consent Obtained History Surgery Operation Date: 02/19/20 16:30 Proposed Procedures p Colonoscopy EGD Dr. Robison - Alex Robison MD Height/Weight Height: 5 ft 8 in Weight: 69 kg Allergies Allergy/AdvReac Type Severity Reaction Status Date / Time No Known Allergies Allergy Unknown Verified 02/17/20 12:52 Medications Home Medications Medication Instructions Recorded Confirmed Last Taken aspirin 81 mg PO QAM 11/03/19 02/17/20 02/17/20 05:00 amlodipine 10 mg PO QAM 11/30/19 02/17/20 02/17/20 05:00 atorvastatin 80 mg PO HS 11/30/19 02/17/20 02/17/20 05:00 carvedilol 6.25 mg PO BID 11/30/19 02/17/20 02/17/20 05:00 clopidogrel [Plavix] 75 mg PO QAM 11/30/19 02/17/20 02/17/20 05:00 pantoprazole 40 mg PO QAM 11/30/19 02/17/20 02/17/20 05:00 cholecalciferol (vitamin D3) 2,000 unit PO QAM 12/24/19 02/17/20 02/17/20 ferrous sulfate [iron] 325 mg PO QAM 02/16/20 02/17/20 02/17/20 furosemide 20 mg PO TUTH 02/16/20 02/17/20 02/17/20 furosemide [Lasix] 40 mg PO QAM 02/16/20 02/17/20 02/17/20 hydralazine 12.5 mg PO BID 02/16/20 02/17/20 02/17/20 05:00 isosorbide mononitrate 30 mg PO DAILY 02/17/20 02/17/20 Unknown Active Medications Generic Name Dose Route Start Last Admin Trade Name Freq PRN Reason Stop Dose Admin Albuterol 3 ml 02/17/20 15:00 02/19/20 08:00 Duoneb NEB 03/18/20 14:59 3 ml QIDR GILBERT Administration Aspirin 81 mg 02/18/20 09:00 02/18/20 09:11 Ecotrin Ectab PO 03/19/20 08:59 81 mg QAM GILBERT Administration Atorvastatin Calcium 80 mg 02/17/20 21:00 02/18/20 20:10 Lipitor PO 03/18/20 20:59 80 mg HS GILBERT Administration Carvedilol 6.25 mg 02/17/20 21:00 02/18/20 20:09 Coreg PO 03/18/20 20:59 6.25 mg BID GILBERT Administration Clopidogrel Bisulfate 75 mg 02/18/20 09:00 02/18/20 09:13 Plavix PO 03/19/20 08:59 75 mg QAM GILBERT Administration Docusate Sodium 100 mg 02/18/20 12:30 02/18/20 20:09 Colace PO 03/19/20 12:29 100 mg BID GILBERT Administration Ferrous Sulfate 325 mg 02/18/20 09:00 02/18/20 09:10 Feosol PO 03/19/20 08:59 325 mg QAM GILBERT Administration Isosorbide Mononitrate 30 mg 02/18/20 09:00 02/18/20 09:12 Imdur Extended Rel PO 03/19/20 08:59 30 mg QAM GILBERT Administration Magnesium Oxide 400 mg 02/18/20 21:00 02/18/20 20:11 Mag-Ox PO 03/19/20 20:59 400 mg QPM GILBERT Administration Pantoprazole Sodium 40 mg 02/18/20 09:00 02/18/20 09:12 Protonix PO 03/19/20 08:59 40 mg QAM GILBERT Administration Vitamin D 2,000 units 02/18/20 09:00 02/18/20 09:12 Vitamin D3 PO 03/19/20 08:59 2,000 units QAM GILBERT Administration Past Medical History Medical History Anemia CAD (coronary artery disease) MIXED AORTIC VALVE DISORDER; MITRAL REGURGITATION Chronic congestive heart failure 02/16/2020 - CURRENTLY DENIES ANY INCREASED SHORTNESS OF BREATH FROM BASELINE. CHEST PAIN HAS SUBSIDED SINCE STARTING HYDRALAZINE Chronic kidney disease STAGE 3-4 COPD (chronic obstructive pulmonary disease) Heme positive stool REASON FOR COLONOSCOPY/EGD Hyperlipidemia Hypertension Hyponatremia CHRONIC Iron deficiency anemia REASON FOR COLONOSCOPY/EGD Ischemic cardiomyopathy EJECTION FRACTION 35-40% Left bundle branch block (Acute) Nocturnal hypoxemia due to emphysema 3 L OF O2 AT HS. DOES NOT NEED ANY OXYGEN DURING THE DAY. NSTEMI (non-ST elevated myocardial infarction) Osteoarthritis Peripheral vascular disease WITH BL CAROTID BRUITS BILATERL SFA OCCLUSIONS Exercise / Class Metabolic Activity II 4-5 Yardwork/Stairs/Walk up hill Past Surgical History Surgical History Amputation of fifth toe of right foot H/O vascular surgery RIGHT FEM-POP BYBASS, AORTOBIFEMORAL BYPASS IN 2003, PRIOR RIGHT ILIOFEMORAL BYPASS (PATIENT STATE HE HAS HAD 4 VASCULAR SURGERIES) History of cardiac cath S/P PCI TO THE PROCIMAL AND MID LAD WITH 3 DRUG-ELUTING STENTS NOVEMBER 06, 2019. RESIDUAL 40% 2ND OBTUSE MARGINAL STENOSIS. (PATIENT INSTRUCTED TO STAY ON BOTH ASPIRIN AND PLAVIX FOR HIS COLONOSCOPY AND EGD PROCEDURE ON 02/17/2020.) Past Anesthesia History No Hx of Anesthesia Complications and No Family Hx of Anesthesia Complications History of PONV No Hx of PONV and No Hx of Motion Sickness Social History Smoking Status: Former smoker tobacco type: cigarettes Smoking cigarettes per day: QUIT 11/02/2019 Do You Dip or Chew Tobacco: No Smoking End Date: 11/02/2019 Hx Alcohol Use: Yes Alcohol type: beer alcohol intake frequency: 0-2 drinks per day Hx Substance Use: No substance use type: does not use Substance Use Type Other:: unknown pt intubated and sedated Physical Exam Vital Signs Last Vital Signs Temp 36.7 C 02/19/20 07:30 Pulse 81 02/19/20 08:30 Resp 19 02/19/20 08:00 BP 132/72 02/19/20 08:30 Pulse Ox 91 02/19/20 08:30 ENMT Mouth: no dentition abnormality Thyromental Distance: > or= 3.5 Finger Breadths Mallampati Class: II Neck normal visual inspection Respiratory normal respiratory effort Auscultation: + diminished lung sounds Cardiovascular Rate/Rhythm: regular rate and regular rhythm Psychiatric Orientation: alert Testing Laboratory Results 02/19/20 04:04 02/19/20 04:04 PT 11.0 Seconds (9.0-12.0) 02/17/20 11:48 INR 1.0 (0.9-1.1) 02/17/20 11:48 APTT 25.6 Seconds (21.0-31.0) 02/17/20 11:48 Urine Color Yellow 02/17/20 19:00 Urine Appearance Clear (Clear) 02/17/20 19:00 Urine pH 5.5 (4.5-7.5) 02/17/20 19:00 Ur Specific [place] 1.010 (1.000-1.030) 02/17/20 19:00 Urine Protein 2+ (Negative) H 02/17/20 19:00 Urine Glucose (UA) Negative (Negative) 02/17/20 19:00 Urine Ketones Negative (Negative) 02/17/20 19:00 Urine Nitrite Negative (Negative) 02/17/20 19:00 Ur Leukocyte Esterase Negative (Negative) 02/17/20 19:00 Urine WBC (Auto) 0 /hpf (0-5) 02/17/20 19:00 Urine RBC (Auto) 0-4 /hpf (0-4) 02/17/20 19:00 U Hyaline Cast (Auto) 1-5 /lpf (0-5) 02/17/20 19:00 U Epithel Cells (Auto) 0-5 /lpf (0-5) 02/17/20 19:00 Urine Bacteria (Auto) Negative (Negative) 02/17/20 19:00 Blood Type AB Positive 02/17/20 11:48 Antibody Screen NEGATIVE 02/17/20 11:48
--- NOTE | 2020-02-19 09:33 | Gastroenterology Progress Note ---
Date of Service February 19, 2020 Assessment & Plan (1) Iron deficiency anemia: (2) Heme positive stool: (3) Respiratory distress: (4) Congestive heart disease: (5) Pulmonary edema: Pt is a 60 y/o male w hx of anemia, heme positive stools scheduled 02/16 for EGD/Colonoscopy evals but this was aborted due to pt developed flash pulmonary edema w IVF. He was transferred to ICU overnight due to continued respiratory distress, maintained on BiPAP. Blood ct stable, no abd pain, n/v. He is tolerating O2 per NC now, had 2L UOP w diuresis. Lung sounds clearer than yesterday. Will attempt EGD/Colonoscopy. He had been NPO and given 1L Golytely prep overnight. Admission and Anticipated Discharge Date Admission Date: February 17, 2020 Supervising Physician Co-Signing Physician Notes I performed a history and physical examination of the patient today, including specifically on physical exam - soft abdomen. I have discussed the patient's management with the advanced practitioner. Please refer to the nurse practitioner's note for the documented findings and plan of care. Subjective Pt on BiPAP overnight but currently on O2 4L per NC, sat 92%. He feels less dyspneic, denies CP, abd pain, n/v. Review of Systems Review of Systems: All systems reviewed & are unremarkable except as noted in HPI & below Physical Exam Constitutional: + frail appearing, well groomed, cooperative and comfortable Eyes: PERRL, conjunctivae normal, anicteric sclerae ENMT: external ear and nose normal, oropharynx normal Respiratory: Auscultation: + diminished lung sounds; no crackles, no rhonchi and no wheezes Cardiovascular: RRR, no murmur, no edema Gastrointestinal (Abdomen): normal bowel sounds, soft, nontender, no hepatosplenomegaly Skin: no rashes, warm and dry no jaundice Psychiatric: A+Ox3, euthymic affect Lymphatic: no lymphedema Results & Data ([facility]) Vital Signs (Past 12 Hours) Vital Signs Temp Pulse Pulse Resp BP BP Pulse Ox 02/19/20 09:12 36.4 C L 92 H 20 135/84 92 02/19/20 08:30 81 132/72 91 02/19/20 08:00 90 70 19 97 02/19/20 07:30 36.7 C 68 129/74 98 02/19/20 06:00 84 19 97 02/19/20 05:40 79 17 138/76 96 02/19/20 05:00 36.8 C 66 69 16 132/79 96 02/19/20 04:00 36.8 C 74 20 131/69 95 02/19/20 03:35 105 H 24 98 02/19/20 03:00 36.8 C 70 22 131/72 02/19/20 02:00 83 15 97 02/19/20 01:50 77 14 95 02/19/20 01:41 79 13 96 02/19/20 01:40 73 13 132/65 98 02/19/20 01:30 77 13 93 02/19/20 01:20 83 16 92 02/19/20 01:10 83 16 95 02/19/20 01:00 79 12 96 02/19/20 00:41 95 H 18 148/98 H 98 02/19/20 00:00 36.7 C 93 H 17 96 02/18/20 23:40 87 16 122/78 97 02/18/20 23:00 79 16 93 02/18/20 22:46 88 18 96 02/18/20 22:00 95 H 19 92 02/18/20 21:50 98 H 19 92 02/18/20 21:41 86 17 94 02/18/20 21:40 92 H 16 125/72 92 (1) Pulmonary edema Chronicity: acute Qualified Code(s): J81.0 - Acute pulmonary edema (2) Iron deficiency anemia Iron deficiency anemia type: unspecified iron deficiency Qualified Code(s): D50.9 - Iron deficiency anemia, unspecified
--- NOTE | 2020-02-19 10:40 | GI REPORT ---
Patient Name: Keron Fall Procedure Date: 02/19/2020 9:26 AM Date of : 1960 Admit Type: Inpatient Age: 60 Gender: Male Attending MD: Alex Robison MD Procedure: Upper GI endoscopy Providers: Alex Robison MD Referring MD: Jacinda Tai Indications: Heme positive stool, Anemia Medicines: Propofol per Anesthesia Complications: No immediate complications. Estimated Blood Loss: Estimated blood loss: none. Procedure: Pre-Anesthesia Assessment: - Prior to the procedure, a History and Physical was performed, and patient medications, allergies and sensitivities were reviewed. The patient's tolerance of previous anesthesia was reviewed. - The risks and benefits of the procedure and the sedation options and risks were discussed with the patient. All questions were answered and informed consent was obtained. - Patient identification and proposed procedure were verified prior to the procedure by the physician and the nurse. The procedure was verified in the procedure room. - Pre-procedure physical examination revealed no contraindications to sedation. After obtaining informed consent, the endoscope was passed under direct vision. Throughout the procedure, the patient's blood pressure, pulse, and oxygen saturations were monitored continuously. The scope was introduced through the mouth, and advanced to the second part of duodenum. The upper GI endoscopy was accomplished without difficulty. The patient tolerated the procedure well. Findings: The examined esophagus was normal. Mild inflammation characterized by erosions and erythema was found in the gastric body. Biopsies were taken with a cold forceps for Helicobacter pylori testing. Verification of patient identification for the specimen was done by the physician and nurse using the patient's name and date. A single medium angioectasia with no bleeding was found in the gastric body. Vaporization for hemostasis using argon plasma was successful. For hemostasis, three hemostatic clips were successfully placed (MR conditional). There was no bleeding at the end of the procedure. The duodenal bulb and second portion of the duodenum were normal. Biopsies were taken with a cold forceps for histology. A single 6 mm sessile polyp was found in the second portion of the duodenum. The polyp was removed with a cold snare. Resection and retrieval were complete. Impression: - Normal esophagus. - Gastritis. Biopsied. - A single non-bleeding angioectasia in the stomach. Treated with argon plasma coagulation (APC). Clips (MR conditional) were placed. - Normal duodenal bulb and second portion of the duodenum. Biopsied. - A single duodenal polyp. Resected and retrieved. Recommendation: - Await pathology results. - Perform a colonoscopy today. Alex Robison MD 02/19/2020 10:40:13 AM This report has been signed electronically. Note Initiated On: 02/19/2020 9:26 AM Number of Addenda: 0 I attest to the content of the Intraoperative Record and orders documented therein, exceptions below {[id number]}
--- NOTE | 2020-02-19 10:44 | GI REPORT ---
Patient Name: Keron Fall Procedure Date: 02/19/2020 9:44 AM Date of : 1960 Admit Type: Inpatient Age: 60 Gender: Male Attending MD: Alex Robison MD Procedure: Colonoscopy Providers: Alex Robison MD Referring MD: Jacinda Tai Indications: Heme positive stool, Anemia Medicines: Propofol per Anesthesia Complications: No immediate complications. Estimated Blood Loss: Estimated blood loss: none. Procedure: Pre-Anesthesia Assessment: - Prior to the procedure, a History and Physical was performed, and patient medications, allergies and sensitivities were reviewed. The patient's tolerance of previous anesthesia was reviewed. - The risks and benefits of the procedure and the sedation options and risks were discussed with the patient. All questions were answered and informed consent was obtained. - Patient identification and proposed procedure were verified prior to the procedure by the physician and the nurse. The procedure was verified in the procedure room. - Pre-procedure physical examination revealed no contraindications to sedation. After I obtained informed consent, the scope was passed under direct vision. Throughout the procedure, the patient's blood pressure, pulse, and oxygen saturations were monitored continuously. The Scope was introduced through the anus and advanced to the cecum, identified by appendiceal orifice and ileocecal valve. The colonoscopy was performed without difficulty. The patient tolerated the procedure well. The quality of the bowel preparation was fair. The ileocecal valve, appendiceal orifice, and rectum were photographed. Findings: The perianal and digital rectal examinations were normal. Two sessile polyps were found in the cecum. The polyps were 6 mm in size. These polyps were removed with a cold snare. Resection and retrieval were complete. Verification of patient identification for the specimen was done by the physician and nurse using the patient's name and date. Two sessile polyps were found in the descending colon. The polyps were 6 mm in size. These polyps were removed with a cold snare. Resection and retrieval were complete. Non-bleeding internal hemorrhoids were found during retroflexion. The hemorrhoids were small. Impression: - Preparation of the colon was fair. - Two 6 mm polyps in the cecum, removed with a cold snare. Resected and retrieved. - Two 6 mm polyps in the descending colon, removed with a cold snare. Resected and retrieved. - Non-bleeding internal hemorrhoids. Recommendation: - Return patient to ICU for ongoing care. - Resume regular diet. - Await pathology results. - Repeat colonoscopy in 2 years for surveillance. - Iron therapy for 2 months, if H/H remains low then schedule VCE to evaluate small bowel. - Recall GI if needed. Alex Robison MD 02/19/2020 10:44:07 AM This report has been signed electronically. Note Initiated On: 02/19/2020 9:44 AM Number of Addenda: 0 I attest to the content of the Intraoperative Record and orders documented therein, exceptions below {[id number]}
[2020-02-19] MEDS: carvediloL 6.25 MG TAB PO SCH ×2 (11:50→20:39)
[2020-02-19] MEDS: CHOLECALCIFEROL 1,000 UNITS 25 MCG TAB PO SCH (11:51)
[2020-02-19] MEDS: DOCUSATE SODIUM 100 MG CAP PO SCH ×2 (11:51→20:41)
[2020-02-19] MEDS: FERROUS SULFATE 325 MG TAB PO SCH (11:51)
[2020-02-19] MEDS: PANTOprazole 40 MG TAB PO SCH (11:51)
[2020-02-19] MEDS: CLOPIDOGREL BISULFATE 75 MG TAB PO SCH (11:51)
[2020-02-19] MEDS: ISOSORBIDE MONO EXTENDED REL 30 MG TABCR PO SCH (11:51)
[2020-02-19] MEDS: ASPIRIN 81 MG ECTAB PO SCH (11:51)
[2020-02-19] MEDS ORDERED: FUROSEMIDE 40 MG TAB PO SCH (13:30)
--- NOTE | 2020-02-19 13:59 | Anesthesiology Progress Note ---
Date of Service February 19, 2020 Anesthesia Post Procedure Vital Signs Vital Signs: Temp Pulse Pulse Resp BP BP BP 02/19/20 12:30 83 21 129/70 02/19/20 12:01 85 23 119/81 02/19/20 11:45 74 17 125/66 02/19/20 11:30 80 20 127/66 02/19/20 11:25 71 20 114/63 02/19/20 11:15 78 18 125/68 02/19/20 10:57 78 21 123/67 02/19/20 10:35 74 18 104/62 02/19/20 10:20 65 16 91/50 L 02/19/20 09:12 36.4 C L 92 H 20 135/84 02/19/20 08:30 81 132/72 02/19/20 08:00 90 70 19 02/19/20 07:30 36.7 C 68 129/74 02/19/20 06:00 84 19 02/19/20 05:40 79 17 138/76 02/19/20 05:00 36.8 C 66 69 16 132/79 02/19/20 04:00 36.8 C 74 20 131/69 02/19/20 03:35 105 H 24 02/19/20 03:00 36.8 C 70 22 131/72 02/19/20 02:00 83 15 02/19/20 01:50 77 14 02/19/20 01:41 79 13 02/19/20 01:40 73 13 132/65 02/19/20 01:30 77 13 02/19/20 01:20 83 16 02/19/20 01:10 83 16 02/19/20 01:00 79 12 02/19/20 00:41 95 H 18 148/98 H 02/19/20 00:00 36.7 C 93 H 17 02/18/20 23:40 87 16 122/78 02/18/20 23:00 79 16 02/18/20 22:46 88 18 02/18/20 22:00 95 H 19 02/18/20 21:50 98 H 19 02/18/20 21:41 86 17 02/18/20 21:40 92 H 16 125/72 02/18/20 21:30 92 H 20 02/18/20 21:20 105 H 21 02/18/20 21:10 112 H 15 02/18/20 21:00 106 H 21 02/18/20 20:10 89 18 02/18/20 20:00 83 20 146/76 H 02/18/20 19:45 80 18 02/18/20 19:30 87 19 02/18/20 19:00 36.8 C 87 82 26 H 128/67 02/18/20 18:40 79 18 128/67 02/18/20 18:30 73 16 02/18/20 18:00 79 78 18 131/97 02/18/20 17:40 88 21 131/97 02/18/20 17:30 73 18 02/18/20 17:00 36.7 C 77 74 20 133/72 02/18/20 16:40 87 14 133/72 02/18/20 16:30 78 16 02/18/20 16:23 02/18/20 16:22 81 02/18/20 16:00 78 83 20 128/69 02/18/20 15:40 86 21 128/69 02/18/20 15:30 79 13 02/18/20 15:09 77 18 02/18/20 15:00 36.7 C 81 80 19 132/70 02/18/20 14:40 76 20 132/70 02/18/20 14:30 82 15 02/18/20 14:00 36.5 C 88 74 22 142/76 H Pulse Ox 02/19/20 12:30 92 02/19/20 12:01 91 02/19/20 11:45 92 02/19/20 11:30 94 02/19/20 11:25 99 02/19/20 11:15 92 02/19/20 10:57 94 02/19/20 10:35 100 02/19/20 10:20 99 02/19/20 09:12 92 02/19/20 08:30 91 02/19/20 08:00 97 02/19/20 07:30 98 02/19/20 06:00 97 02/19/20 05:40 96 02/19/20 05:00 96 02/19/20 04:00 95 02/19/20 03:35 98 02/19/20 03:00 02/19/20 02:00 97 02/19/20 01:50 95 02/19/20 01:41 96 02/19/20 01:40 98 02/19/20 01:30 93 02/19/20 01:20 92 02/19/20 01:10 95 02/19/20 01:00 96 02/19/20 00:41 98 02/19/20 00:00 96 02/18/20 23:40 97 02/18/20 23:00 93 02/18/20 22:46 96 02/18/20 22:00 92 02/18/20 21:50 92 02/18/20 21:41 94 02/18/20 21:40 92 02/18/20 21:30 92 02/18/20 21:20 91 02/18/20 21:10 88 L 02/18/20 21:00 89 L 02/18/20 20:10 89 L 02/18/20 20:00 89 L 02/18/20 19:45 90 02/18/20 19:30 91 02/18/20 19:00 93 02/18/20 18:40 92 02/18/20 18:30 93 02/18/20 18:00 93 02/18/20 17:40 95 02/18/20 17:30 94 02/18/20 17:00 94 02/18/20 16:40 93 02/18/20 16:30 94 02/18/20 16:23 94 02/18/20 16:22 02/18/20 16:00 94 02/18/20 15:40 95 02/18/20 15:30 94 02/18/20 15:09 92 02/18/20 15:00 92 02/18/20 14:40 92 02/18/20 14:30 91 02/18/20 14:00 88 L Transfer of Care Handoff Completed per policy Notes Mental Status: alert / awake / arousable Patient Amnestic to Procedure: Yes Nausea / Vomiting: adequately controlled Pain: adequately controlled Airway Patency, RR, SpO2: stable & adequate BP & HR: stable & adequate Hydration State: stable & adequate Anesthetic Complications: no major complications apparent
--- NOTE | 2020-02-19 18:48 | Hospitalist Progress Note ---
Date of Service February 19, 2020 Assessment & Plan (1) Acute respiratory failure with hypoxia: doing better. unclear inciting factor (2) Acute on chronic heart failure with reduced ejection fraction and diastolic dysfunction: Patient has combined systolic and diastolic failure. Acute component causing hypoxia at this time.- but is improving Patient is previously documented LVEF of 35-40%. looking dry - will cautiously hold lasix further right now (3) Ischemic cardiomyopathy: Continue carvedilol. Not on ACEi/ARB presumably due to reduced renal function. LVEF 35-40% with moderate mitral regurgitation. (4) Acute hyponatremia: acute on chronic - likely CHF volumee + GI losses; ?chronic either from chronic CHF or ?siadh (5) Left bundle branch block: Noted. Not acute. (6) Chronic kidney disease, stage 3 (moderate): Stable. Continue to monitor Cr with lasix use. (7) Wheezing: resolved (8) CAD (coronary artery disease): s/p 1 MARY to proximal LAD (70%) and 2 MARY to the mid-LAD (95% lesion) on 11/07/2019 (NSTEMI). RCA was completely occluded, but appeared chronic and no intervention done. - Continued ASA, Plavix, beta-feli, Imdur, statin (9) Hypertension: Continue home doses of amlodipine, carvedilol, ISMN, hydralazine. Lasix as above. hopefully entresto once creat allows (10) Peripheral vascular disease: s/p right common iliac to right femoral bypass in 1999, aortobifemoral bypass in 06/2004 (11) COPD (chronic obstructive pulmonary disease): On no inhalers for this. No outpatient PFTs. CXR consistent with PFTs and given improvement with duonebs could consider a maintenance inhaler on discharge with PFTs in approx 6 weeks once feeling well. (12) Iron deficiency anemia: Transferrin saturation 4% in December. ?culprit lesion on EGD? will need to f/u w GI on this. stable now. (13) Pulmonary nodule seen on imaging study: Noted on CT on October. Patient reports outpatient CT scan planned as follow up. 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 notes no dyspnea. no f/c/s. reviewed scopes with pt. d/w ICU - agree safe for transfer out of ICU Review of Systems Review of Systems: All systems reviewed & are unremarkable except as noted in HPI & below Physical Exam Physical Exam: gen aao pleasant nad heent nc at mmm lungs cta maybe faintly diminished bibasilar no accessory muscles good effort skin no rashes no pallor or icterus neuro no focal deficits Results & Data Results & Data ([facility]) Vital Signs (Past 12 Hours) Vital Signs Temp Pulse Pulse Pulse Resp BP BP 02/19/20 14:55 72 20 02/19/20 14:09 81 19 122/71 02/19/20 13:39 88 22 134/84 02/19/20 12:30 83 21 129/70 02/19/20 12:01 85 23 119/81 02/19/20 11:45 74 17 125/66 02/19/20 11:30 80 20 127/66 02/19/20 11:25 71 20 114/63 02/19/20 11:15 78 18 125/68 02/19/20 10:57 78 21 123/67 02/19/20 10:35 74 18 104/62 02/19/20 10:20 65 16 91/50 L 02/19/20 09:12 97.5 F L 92 H 20 135/84 02/19/20 08:30 81 132/72 02/19/20 08:00 90 70 19 02/19/20 07:30 98.1 F 68 129/74 Pulse Ox 02/19/20 14:55 93 02/19/20 14:09 95 02/19/20 13:39 96 02/19/20 12:30 92 02/19/20 12:01 91 02/19/20 11:45 92 02/19/20 11:30 94 02/19/20 11:25 99 02/19/20 11:15 92 02/19/20 10:57 94 02/19/20 10:35 100 02/19/20 10:20 99 02/19/20 09:12 92 02/19/20 08:30 91 02/19/20 08:00 97 02/19/20 07:30 98 PG Care Time/CCT Total # of Minutes Spent Total Time Spent with Patient: Total time spent is greater than 50% in coordination of care (as documented) at patient's floor/unit and/or counseling patient: Coding Level of Care Code 82079 Subseq Hosp Care Lvl 3 Diagnoses Acute respiratory failure with hypoxia J96.01 Acute on chronic heart failure with reduced ejection fraction and diastolic dysfunction I50.43 Ischemic cardiomyopathy I25.5 Acute hyponatremia E87.1 Left bundle branch block I44.7 Chronic kidney disease, stage 3 (moderate) N18.3 Wheezing R06.2 CAD (coronary artery disease) I25.10 Coronary Disease-Associated Artery/Lesion type: [place] artery [place] vs. transplanted heart: [place] heart Associated angina: without angina Hypertension I10 Peripheral vascular disease I73.9 COPD (chronic obstructive pulmonary disease) J44.9 Iron deficiency anemia D50.9 Iron deficiency anemia type: unspecified iron deficiency Pulmonary nodule seen on imaging study R91.1 DVT prophylaxis Z29.9 Discharge planning issues Z02.9 (1) CAD (coronary artery disease) Coronary Disease-Associated Artery/Lesion type: [place] artery [place] vs. transplanted heart: [place] heart Associated angina: without angina Qualified Code(s): I25.10 - Atherosclerotic heart disease of [place] coronary artery without angina pectoris (2) Iron deficiency anemia Iron deficiency anemia type: unspecified iron deficiency Qualified Code(s): D50.9 - Iron deficiency anemia, unspecified
[2020-02-19] MEDS: ATORVASTATIN 40 MG TAB PO SCH (20:39)
[2020-02-19] MEDS: MAGNESIUM OXIDE 400 MG TAB PO SCH (20:40)
[2020-02-20 05:14] LABS: BUN Creatinine Ratio 17.2 (10-20); Calcium 8.2 mg/dl (8.5-10.1); Creatinine Clr Calc Pharmacy 27.2 ml/min; Est GFR (African American) 27.8; Potassium 3.5 mmol/L (3.5-5.1)
[2020-02-20] MEDS: ALBUT/IPRATROP 3MG/0.5MG NEB 3 ML VIAL NEB SCH ×2 (07:16→11:16)
[2020-02-20] MEDS ORDERED: POTASSIUM CHLORIDE 20 MEQ TABCR PO STA (08:25)
[2020-02-20] MEDS ORDERED: MAGNESIUM OXIDE 400 MG TAB PO ONE (08:26)
[2020-02-20] MEDS: carvediloL 6.25 MG TAB PO SCH ×2 (09:15→20:55)
[2020-02-20] MEDS: ASPIRIN 81 MG ECTAB PO SCH (09:16)
[2020-02-20] MEDS: CLOPIDOGREL BISULFATE 75 MG TAB PO SCH (09:16)
[2020-02-20] MEDS: CHOLECALCIFEROL 1,000 UNITS 25 MCG TAB PO SCH (09:16)
[2020-02-20] MEDS: DOCUSATE SODIUM 100 MG CAP PO SCH ×3 (09:17→20:56)
[2020-02-20] MEDS: PANTOprazole 40 MG TAB PO SCH (09:17)
[2020-02-20] MEDS: ISOSORBIDE MONO EXTENDED REL 30 MG TABCR PO SCH (09:17)
[2020-02-20] MEDS: FERROUS SULFATE 325 MG TAB PO SCH (09:17)
--- NOTE | 2020-02-20 17:03 | Hospitalist Progress Note ---
Date of Service February 20, 2020 Assessment & Plan (1) Acute respiratory failure with hypoxia: doing better. after review - inciting factor was massive sodium load with pot pie. educated. (2) Acute on chronic heart failure with reduced ejection fraction and diastolic dysfunction: Patient has combined systolic and diastolic failure. now improving. resumed hydralazine to get ACEi-like benefit from hydralazine/imdur combo - on review baseline kidney function and apparent troubles with hyperkalemia will likely unfortunately preclude entresto caused by massive salt load in pot pie. educated. (3) Ischemic cardiomyopathy: Continue carvedilol. Not on ACEi/ARB due to reduced renal function and apparently hyperkalemia as well LVEF 35-40% with moderate mitral regurgitation. (4) Acute hyponatremia: acute on chronic - likely CHF volumee + GI losses; ?chronic either from chronic CHF or ?siadh - continue to follow inpt and then routinely as outpt but doing better today (5) Left bundle branch block: Noted. Not acute. short burst of vtach early this AM - replaced K and gave additional mag (6) Chronic kidney disease, stage 3 (moderate): higher end of basically baseline range now - continue to follow (7) Wheezing: resolved (8) CAD (coronary artery disease): s/p 1 MARY to proximal LAD (70%) and 2 MARY to the mid-LAD (95% lesion) on 11/07/2019 (NSTEMI). RCA was completely occluded, but appeared chronic and no intervention done. - Continued ASA, Plavix, beta-feli, Imdur, statin - no anginal complaints today (9) Hypertension: Continue home doses of amlodipine, carvedilol, ISMN, hydralazine (resumed today). Lasix as above. (10) Peripheral vascular disease: s/p right common iliac to right femoral bypass in 1999, aortobifemoral bypass in 06/2004 (11) COPD (chronic obstructive pulmonary disease): On no inhalers for this. No outpatient PFTs. CXR consistent with PFTs and given improvement with duonebs could consider a maintenance inhaler on discharge with PFTs in approx 6 weeks once feeling well. (12) Iron deficiency anemia: Transferrin saturation 4% in December. ?culprit lesion on EGD? will need to f/u w GI on this. stable now. (13) Pulmonary nodule seen on imaging study: Noted on CT on October. Patient reports outpatient CT scan planned as follow up. 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 outlined risks - he expressed good understanding. (also outlined risk of sodium content in typical camping foods) Admission and Anticipated Discharge Date Admission Date: February 17, 2020 Subjective feeling better breathing better wants to go home - did walk halls twice today - early in the day fairly dyspnic and pulse ox dropped to 88%; later walked 2 laps, less dyspnic and dropped only to a low of 90% after discussions he remembered that he did have ham pot pie the night before admission - on quick online search reasonable to assume that 1 cup has more than 3000mg sodium. he is aware asks about camping season and beer - normally drinks 8-10 beers a day over a weekend when camping. no other new complaints - generally feeling much better Review of Systems Review of Systems: All systems reviewed & are unremarkable except as noted in HPI & below Physical Exam Physical Exam: gen aao pleasant nad heent nc at mmm lungs cta b/l no rr//w good effort no accessory msucles good effort skin no rashes no pallor or icterus Results & Data Results & Data ([facility]) Vital Signs (Past 12 Hours) Vital Signs Temp Pulse Pulse Resp BP BP Pulse Ox 02/20/20 16:00 98.1 F 74 16 145/68 H 90 02/20/20 15:16 71 02/20/20 11:59 98.6 F 85 16 125/67 91 02/20/20 11:16 63 16 93 02/20/20 08:00 99.0 F 80 82 18 142/73 H 90 02/20/20 07:16 69 18 94 02/20/20 05:42 72 19 124/62 PG Care Time/CCT Total # of Minutes Spent Total Time Spent with Patient: Total time spent is greater than 50% in coordination of care (as documented) at patient's floor/unit and/or counseling patient: Coding Level of Care Code 23117 Subseq Hosp Care Lvl 3 Diagnoses Acute respiratory failure with hypoxia J96.01 Acute on chronic heart failure with reduced ejection fraction and diastolic dysfunction I50.43 Ischemic cardiomyopathy I25.5 Acute hyponatremia E87.1 Left bundle branch block I44.7 Chronic kidney disease, stage 3 (moderate) N18.3 Wheezing R06.2 CAD (coronary artery disease) I25.10 Coronary Disease-Associated Artery/Lesion type: [place] artery [place] vs. transplanted heart: [place] heart Associated angina: without angina Hypertension I10 Peripheral vascular disease I73.9 COPD (chronic obstructive pulmonary disease) J44.9 Iron deficiency anemia D50.9 Iron deficiency anemia type: unspecified iron deficiency Pulmonary nodule seen on imaging study R91.1 DVT prophylaxis Z29.9 Discharge planning issues Z02.9 Alcohol use disorder (1) CAD (coronary artery disease) Coronary Disease-Associated Artery/Lesion type: [place] artery [place] vs. transplanted heart: [place] heart Associated angina: without angina Qualified Code(s): I25.10 - Atherosclerotic heart disease of [place] coronary artery without angina pectoris (2) Iron deficiency anemia Iron deficiency anemia type: unspecified iron deficiency Qualified Code(s): D50.9 - Iron deficiency anemia, unspecified
[2020-02-20] MEDS: ALBUT/IPRATROP 3MG/0.5MG NEB 3 ML VIAL NEB PRN (20:42)
[2020-02-20] MEDS: MAGNESIUM OXIDE 400 MG TAB PO SCH (20:52)
[2020-02-20] MEDS: ATORVASTATIN 40 MG TAB PO SCH (20:56)
[2020-02-21 05:36] LABS: BUN Creatinine Ratio 18.8 (10-20); Calcium 8.6 mg/dl (8.5-10.1); Creatinine Clr Calc Pharmacy 25.9 ml/min; Est GFR (African American) 29.2; Est GFR (Non-African American) 25.2; Potassium 3.9 mmol/L (3.5-5.1)
[2020-02-21] MEDS: FERROUS SULFATE 325 MG TAB PO SCH (08:44)
[2020-02-21] MEDS: ISOSORBIDE MONO EXTENDED REL 30 MG TABCR PO SCH (08:44)
[2020-02-21] MEDS: ASPIRIN 81 MG ECTAB PO SCH (08:44)
[2020-02-21] MEDS: DOCUSATE SODIUM 100 MG CAP PO SCH (08:44)
[2020-02-21] MEDS: CLOPIDOGREL BISULFATE 75 MG TAB PO SCH (08:44)
[2020-02-21] MEDS: PANTOprazole 40 MG TAB PO SCH (08:44)
[2020-02-21] MEDS: carvediloL 6.25 MG TAB PO SCH (08:45)
[2020-02-21] MEDS: CHOLECALCIFEROL 1,000 UNITS 25 MCG TAB PO SCH (08:45)
[2020-02-21] MEDS ORDERED: FUROSEMIDE 40 MG TAB PO SCH (09:00)
[2020-02-21] MEDS: ALBUT/IPRATROP 3MG/0.5MG NEB 3 ML VIAL NEB PRN (09:02)
--- NOTE | 2020-02-21 14:40 | Discharge Summary ---
Date of Service February 21, 2020 Admission HPI Per Admitting Provider Keron Fall is a 60 year old male with recent NSTEMI who presented to the ER due to acute onset shortness of breath, cough and retching prior to planned outpatient EGD/colonoscopy today for iron def. anemia. Reportedly he held his lasix this morning and was given 400cc IV fluid prior to the procedure. Only became short of breath once he lied down flat. He reports sleeping with two pillows since his heart attack due to shortness of breath when lying flat. Even prior to this episode he has not been able to walk upstairs. He became hypoxic and therefore was transferred to the ER for continued care. He reports feeling well leading up to this procedure. Managed to tolerate the bowel prep. He denies any chest pain, diaphoresis, fevers, chills, palpitations, claudication. Principal Diagnosis acute on chronic systolic CHF brought on by massive salt load of ham pot-pie Discharge Exam gen aaox3 pleasant nad heent nc at mmm lungs cta b/l maybe very faintly diminished bibasilar but for all practical purposes normal no accessory muscles no overt r/r/w good effort. gait slow but steady, normal. does desaturate to 88% on RA after about 100ft walk with me. mild dyspnea at worst and quickly recovers. cn 2-12 grossly intact gross motor/sensory intact. no rashes no pallor or icterus Discharge Data Allergies Allergy/AdvReac Type Severity Reaction Status Date / Time No Known Allergies Allergy Unknown Verified 02/17/20 12:52 Consultations 02/17/20 12:36 ED Decision to Admit Stat 02/18/20 07:00 Consult Sales Driver Routine Procedures Performed Operation Date: 02/19/20 16:30 Actual Procedures s Colonoscopy Polypectomy - Alex Robison MD p EGD Polypectomy(Left) - Alex Robison MD Hospital Course (1) Acute respiratory failure with hypoxia: doing better. after review - inciting factor was massive sodium load with pot pie. educated repeatedly. does have ongoing hypoxia with activity - suspect some probably chronic (see below) - qualifies for home O2 with exertion - only has concentrator for HS use but has enough tubing to get around apartment -- [facility] now [facility] not [facility] to get [facility]; however, he only desaturates mildly with modest activity and is OK on RA at rest -- sister is coming to take him home -- and he really desires to leave the hospital. risk/benefit is that it is probably more dangerous from potential for hospital acquired infection and/or deconditioning to keep him in-house until Sunday to get approval from [place] for portable oxygen than it is for him to move slow and easy on the way home and then use his stationary O2 at home until portable O2 can be set up. he does have pulse ox and talks good understanding of how to use and interpret it. (2) Acute on chronic heart failure with reduced ejection fraction and diastolic dysfunction: Patient has combined systolic and diastolic failure. now improving. continue hydralazine bid, increase imdur to bid in order to get ACEi-like benefit from hydralazine/imdur combo (educated on orthostasis risk) - on review baseline kidney function and apparent troubles with hyperkalemia will likely unfortunately preclude entresto caused by massive salt load in pot pie. educated extensively, repeatedly, verbally and in writing. (3) Ischemic cardiomyopathy: Continue carvedilol. Not on ACEi/ARB due to reduced renal function and apparently hyperkalemia as well LVEF 35-40% with moderate mitral regurgitation. (4) Acute hyponatremia: acute on chronic - likely CHF volumee + GI losses; ?chronic either from chronic CHF or ?siadh - doing ok now - outpatient f/u of BMP (5) Left bundle branch block: Noted. Not acute. outpatient cardiology follow up. (6) Chronic kidney disease, stage 3 (moderate): higher end of basically baseline range now - continue to follow up as outpt - BMP as outpt in near future (7) Wheezing: resolved (8) CAD (coronary artery disease): s/p 1 MARY to proximal LAD (70%) and 2 MARY to the mid-LAD (95% lesion) on 11/07/2019 (NSTEMI). RCA was completely occluded, but appeared chronic and no intervention done. - Continued ASA, Plavix, beta-feli, Imdur, statin - no anginal complaints (9) Hypertension: Continue home doses of amlodipine, carvedilol, ISMN, hydralazine (resumed today). Lasix as above. (10) Peripheral vascular disease: s/p right common iliac to right femoral bypass in 1999, aortobifemoral bypass in 06/2004 (11) COPD (chronic obstructive pulmonary disease): does not recall having outpt PFTs, smoked for 46yrs. with walking desaturations but no significant dyspnea with this i suspect that he probably does harbor underlying COPD -PFTs ~4-6wks (once he's had a chance to return to baseline) -spiriva daily (and if PFTs show no COPD then can stop)(if PFTs do show COPD then depending on breathing can later add LABA/corticosteroid) -albuterol w spacer prn sob/wheeze (12) Iron deficiency anemia: Transferrin saturation 4% in December. probable culprit lesion cauterized by EGD. continue iron. CBC as outpt later this week. repeat iron studies in ~3 months (13) Pulmonary nodule seen on imaging study: Noted on CT on October. Patient reports outpatient CT scan planned as follow up. Possible cause of hyponatremia above with SIADH (14) DVT prophylaxis: no pharmacologic due to GI bleed concerns, scds and ambulation utilized (15) Alcohol use disorder: cautioned about his binge drinking with camping now that he has CHF/CKD. outlined risks - he expressed good understanding. (also outlined risk of sodium content in typical camping foods) (16) Discharge planning issues: stable for home, outpt f/u see instructions below as given to pt for further detail Total Time Total Time Spent Total Time Spent (In Minutes): >30 Discharge Plan Discharge Items Patient Disposition: Home - Self-Care Reason For Visit: SHORTNESS OF BREATH Discharge Diagnosis: congestive heart failure - see below Activity: Resume your previous activity Non-emergency contact: Primary Care Provider and Platform Loader Call non-emergency contact if: you have any medication questions Follow-up/Referrals: Carmen Viramontes PA-C [Primary Care Provider] - Diet: Low Sodium (2gm) Addtl Attending Provider Instructions: iron deficiency -the gastroenterologists saw a blood vessel in your stomach that was most likely culprit for the blood loss - they cauterized it, so hopefully things will be more stable from a blood count/iron standpoint -- please continue the iron supplementation for now -we would ask that you have bloodwork done later this week (CBC) as it relates to your blood counts (see below as we'd also want electrolytes checked at the same time as relates to your heart); and also we would recommend having iron studies checked in about 3 months (so around mid May) congestive heart failure -as we've been discussing, your biggest reason for getting SO short of breath when you arrived was fluid backing up into your lungs --> this happened because your heart is weaker than it used to be, and then the salt load from the pot pie caused you to retain more fluid than your heart and kidneys were able to manage. now you're doing much better but it is critically important to restrict sodium -- when you take in too much salt it will usually lead to fluid retention - which can then lead to situations like what happened during this hospital admission. I would suspect you'll do well if you stay at less than 2000mg of sodium a day (as we discussed, the one serving of pot pie may have had as much as 3500 just in that, and a small [employer] burger has somewhere around 1200 just in the burger alone!) - if you find that 2000mg is still leading to weight gain/shortness of breath/swelling, it's possible that you'll need to restrict to as tight as 1500mg a day, but i doubt you'll have to be this tight if you're always good with staying under 2000mg. -below, i pasted in a lengthy set of instructions as it relates to CHF -- please look it over as many folks have found it to be quite helpful in keeping out of trouble! -medication-bowles, the only thing we've switched up is that we added a dose of isosorbide (imdur) at night -- you've normally just been taking it in the morning. just follow to make sure you don't get lightheaded easily - unlikely to happen but if it did it would be when you first go from laying to sitting or sitting to standing --> sometimes people can even have a faint with that. if that were to happen, it's actually a "benign faint" but the problem would be the practical reality of what you hit on the way down -- so if you stay next to the bed or chair for a minute before you start moving, then if you do feel woozy you can just sit back down. if this happens, it usually is something that goes away fairly quickly once your body gets used to the medication changes. -we would recommend that you have bloodwork later this week (BMP - at the same time they draw the CBC referenced above) possible COPD -more than likely with the oxygen levels we're seeing, and with the smoking history you had, we expect that you probably do have a degree of smoker's lung (COPD). this is best diagnosed with what are called "pulmonary function tests" (or PFTs) - where they have you breathe in as deeply as you can, blow out as much as you can, and measure how much air you can move. this is better done on a "good day" when you're feeling well - so we didn't get them while you're in the hospital - but it's something your PCP should be able to set up. -in the meantime, we'll manage your breathing on the assumption that you do have COPD, and then if the PFTs are surprisingly good, they can simply stop the inhalers later -most people with COPD do the best if they have an inhaler of a class called "anticholinergics" (or antimuscarinics) - so usually i'll prescribe spiriva (tiotropium) given that it does well in this class of inhalers and is only once-a-day. it's an inhaler that you take once a day EVERY DAY, and usually people really don't feel much different right after they take it --> it works more slowly over time to reduce inflammation in your lungs; and statistically is the best class of inhaler at helping your breathing/keeping you out of the hospital/etc -we'll also send you out with an albuterol inhaler (a "rescue" inhaler) that you can take as needed - this would be the inhaler you take if you're coughing/wheezing/feeling tight. use the spacer (the plastic tube that clicks on to the end) as that helps the inhaler medicine actually get into your lungs better low oxygen -your oxygen levels are a bit low - i suspect given how short of breath you are NOT, that this is probably more chronic with a little bit of acute (new) thrown on top. because of this we're getting oxygen set up for you to have portable oxygen when you're walking around. unfortunately [facility] not [facility], this will be on hold for the short term. since you have oxygen at home with enough tubing to get around your apartment, as long as you move slow getting home and get the oxygen on once you're there, you'll do OK -use your pulse ox as a guide - generally speaking if you're above 90% you're safe, if you're below you would to either rest or use some oxygen to get you back up to more normal levels -the low oxygen is probably a combination of the CHF and (presumed) COPD alcohol and camping -as we discussed, this year will be a bit different with [facility] (if you're able to go in the midst of the coronavirus pandemic, but that's a different story) than things have been in the past. -given that your heart is now weaker than before, and kidneys don't work as wel l, your typical camping day of 8-10 beers really would put you at risk in 2 different ways: the fluid volume of 100-120 ounces is more than likely enough to really get you in trouble with fluid backing up into your lungs, and at "high doses" (probably more than ~5 beers in a day) alcohol can be directly toxic to your heart muscle making things weaker. -in that respect, technically there's no safe level of alcohol to drink but if you're going to anyway, if you can keep it to around 2 drinks in a day, that can probably be in the range of "playing with fire without getting burned" -- ie i can't safely condone/endorse any amount of beer with what's going on with you medically, but if you keep it that low, you're probably not going to get into trouble. as we discussed as well --> if you only bring a six pack with you for the weekend, it makes it safer to keep you from falling into old habits -the other BIG concern with [facility] is most of the typical [facility] food is absolutely loaded with sodium - so before you start to head out you'll need to really reconsider you menu paying attention to how much sodium you're taking in. nothing would ruin a good night around the campfire quite like getting short of breath and ending up in the ICU again. Congestive Heart Failure: Discharge Instructions Congestive Heart Failure essentially means your heart is able to have a "traffic jam" of fluid that backs up into your lungs. Fluid in lungs then blocks up breathing space making you feel short of breath. In the hospital, our job is to get the fluid off so that you are able to breathe better, and then get you back on track with medication and lifestyle adjustments to keep the traffic jam from happening again. Salt (Sodium) The vast majority of people admitted to the hospital with fluid back up into the lungs get there because of too much salt in their diet. The way our kidneys work: when you take a small amount of sodium, your kidneys hold onto a small amount of water. When you take a large amount of sodium, your kidneys hold onto a large amount of water. When this happens, your blood vessels get flooded, your heart gets overfilled, and the fluid backs up into your lungs. Most people know to avoid the salt shaker, but sodium is in almost anything prepackaged/prepared, as a preservative or as a flavoring agent. Most of the people we take care of who are here with congestive heart failure caused by too much sodium do not use a salt shaker at all. Get into the habit of looking at food labels, so you can see how much sodium is in the foods you eat. The most important number to look at is how much sodium is in each serving. But also notice the size of a serving. Food [employer] will frequently make a serving size so tiny that it does not look like there is much sodium per serving, but a normal person might eat 3 or 4 servings of the food and take in a lot more sodium than they realized. Keep a "budget" of how much sodium you take in in each day. Most people stay out of trouble and stay out of the hospital as long as they stay "under budget". The majority of congestive heart failure patients do well if they take less than 2000 mg of sodium a day. Because our kidneys retain water based on how much sodium they are seeing in any given moment, it is also important to stay at less than about 500 mg in any given meal. This is because even if you stayed at less than 2000 mg of sodium, but ate it all at once, your kidneys would retain fluid at a rate as though you are taking in much more sodium than you actually are. Occasionally your doctor may specifically recommend restricting even further (such as less than 1500mg per day) so if you have been told to be even stricter with sodium, please follow that advice. -Following How You Are Doing (Wet Versus Dry) Because managing congestive heart failure is an ongoing process, it is very important to learn how to follow your signs and symptoms and track how you are doing at home. This will allow you to catch problems before they become a big deal. In general, as your health care team, we look at managing congestive heart failure chronically as a balance of being "wet" (flooded with fluid) versu s being "dry" (dehydrated from treatment). Wet - signs of fluid retention that would warrant further evaluation: Check your weight daily. If your weight goes up by more than 2 pounds in 1 day, it is almost certainly fluid related. This should warrant further thought, and/or a call to your doctor Follow your breathingmost of the time, early on when fluid backs up into your lungs, you will first start to notice shortness of breath when walking, or when lying flat. If you notice either of these, this should warrant further thought, and/or a call to your doctor If you notice both an increase in weight and worsening breathing, that definitely warrants getting seen as soon as possible "Dry"while the goal of managing the disease is to keep you from getting "wet, the medications can sometimes cause a degree of dehydration. Most people with congestive heart failure need frequent lab work (basic metabolic panel). Generally when there has been a change in diuretic dosing (a change in the water pill) or any other major changes, lab work should be followed closely and more frequently afterwards. This is because lab work will frequently show early signs of dehydration before you start to feel bad. Frequent symptoms of being dehydrated include: feeling weak and lightheaded, hav ing lower blood pressures, making less urine than usual, or having a very dry mouth. If you notice any of these signs/symptoms, and you are not due for lab work, it would be quite reasonable to call your doctor to see if lab work or a visit could be arranged. Heart Failure Management Checklist: Limit Salt (Sodium) Intake to 2000mg (2g) per day and 500mg (0.5g) per meal Check weight daily (in same clothes, without shoes) every morning Use the provided chart to enter your weight and salt intake for the day Are you too wet? If you gained 2lb or more - make sure to take your water pill If your breathing is not good (you are more short of breath than usual) call your doctor regardless of weight change If you gained 2lb or more and you are short of breath, see your doctor or come to the emergency room Are you too dry? If you feel weak or lightheaded, have lower blood pressures, make less urine than usual, or have a very dry mouth. Call your doctor Pending Studies at Discharge: No Stand-Alone Forms: My [facility], Smoking Cessation Medications and DC Order Prescriptions: New Spiriva with HandiHaler 18 mcg capsule, w/inhalation device 1 cap INH DAILY Qty: 30 RF: 0 albuterol sulfate 90 mcg/actuation HFA aerosol inhaler 1 puffs INH Q6H PRN (Reason: shortness of breath or wheezing) Qty: 18 RF: 0 (DME) Spacer for Inhaler Misc See Rx Instructions .ROUTE .MEDSUPPLY Qty: 1 RF: 0 Continued aspirin 81 mg Tablet,Delayed Release (Dr/Ec) 81 mg PO QAM RF: 0 atorvastatin 80 mg Tablet 80 mg PO HS RF: 0 carvedilol 12.5 mg Tablet 6.25 mg PO BID RF: 0 clopidogrel [Plavix] 75 mg Tablet 75 mg PO QAM RF: 0 amlodipine 10 mg Tablet 10 mg PO QAM RF: 0 pantoprazole 40 mg Tablet,Delayed Release (Dr/Ec) 40 mg PO QAM RF: 0 cholecalciferol (vitamin D3) 2,000 unit Tablet,Chewable 2,000 unit PO QAM RF: 0 hydralazine 25 mg Tablet 12.5 mg PO BID RF: 0 ferrous sulfate [iron] 325 mg (65 mg iron) tablet 325 mg PO QAM RF: 0 furosemide [Lasix] 40 mg Tablet 40 mg PO QAM RF: 0 furosemide 20 mg tablet 20 mg PO TUTH RF: 0 Changed isosorbide mononitrate 30 mg tablet extended release 24 hr 30 mg PO BID Qty: 60 RF: 0 Discharge Orders: Discharge Order (Routine); Ordered 02/21/20 Ordered By: Nikhil Toscano/Other Patient Handouts: Shortness of Breath Maximizing Your Energy, Spirometer Incentive, Deep Breathing Admission Data Admit Date/Time: 02/17/20 13:12 Attending Provider: Nikhil Rivers Admit Provider: Zheng Woods Primary Care Provider: Carmen Viramontes Other Providers: Bhavesh Frye ; Zheng Woods ; Yonathan Vega Other Interventions: Discharge Summary Assessment (RN) Last Done: 02/21/20 13:17 DC Date/Time DO NOT enter until pt leaves facility: 02/21/20 14:20 Coding Level of Care Code D/C Day Management >30 mins Diagnoses Acute respiratory failure with hypoxia J96.01 Acute on chronic heart failure with reduced ejection fraction and diastolic dysfunction I50.43 Ischemic cardiomyopathy I25.5 Acute hyponatremia E87.1 Left bundle branch block I44.7 Chronic kidney disease, stage 3 (moderate) N18.3 Wheezing R06.2 CAD (coronary artery disease) I25.10 Coronary Disease-Associated Artery/Lesion type: [place] artery [place] vs. transplanted heart: [place] heart Associated angina: without angina Hypertension I10 Peripheral vascular disease I73.9 COPD (chronic obstructive pulmonary disease) J44.9 Iron deficiency anemia D50.9 Iron deficiency anemia type: unspecified iron deficiency Pulmonary nodule seen on imaging study R91.1 DVT prophylaxis Z29.9 Alcohol use disorder Discharge planning issues Z02.9
== END 2020-02-21 14:20 | disposition home or self-care (01) | DRG 291 ==
LOC: ED 11:24 → SUATTDRO 13:12 → 2S 13:12 → 1E 02-18 06:47 → 3E 02-20 16:22

== ENCOUNTER 2020-02-25 00:20 | Inpatient (IN) ==
[2020-02-25] MEDS ORDERED: RAPID SEQUENCE INDUCTION BAG ONE (00:29)
[2020-02-25] MEDS ORDERED: PROPOFOL IV EMULSION 10 MG/ML 100 ML VIAL IV ONE (00:31)
[2020-02-25] MEDS ORDERED: PROPOFOL IV EMULSION 10 MG/ML 20 ML VIAL IV ONE (00:32)
[2020-02-25] MEDS ORDERED: ALBUTEROL 0.083% NEBU SOLN 3 ML VIAL ONE (00:34)
[2020-02-25] MEDS ORDERED: methylPREDNISolone 125 MG/2 ML VIAL ONE (00:34)
[2020-02-25] MEDS ORDERED: ALBUT/IPRATROP 3MG/0.5MG NEB 3 ML VIAL ONE (00:34)
[2020-02-25] MEDS ORDERED: FUROSEMIDE 40 MG/4 ML VIAL IV STA (00:46)
[2020-02-25] MEDS ORDERED: NITROGLYCERIN 2% OINTMENT 30GM TUBE EXT ONE (00:46)
--- NOTE | 2020-02-25 01:03 | Emergency Department Note ---
Impression & Plan Respiratory failure with hypoxia, Elevated troponin I level, CHF (congestive heart failure), Hypertensive emergency ED Provider Note NAME: JULIAN ARGUETA AGE: 60 SEX: M : 1960 ARRIVES VIA: Ambulance INFORMANT: EMS ED PROVIDER(S): Gopal Baez MD Chief Complaint: Shortness of breath HPI: Upon my arrival to the room the patient was unresponsive. The patient would not respond to sternal rub but I was informed that the patient was complaining of some shortness of breath. The patient had recently been admitted has a very poor EF as well as a history of COPD. History is limited secondary to clinical acuity. ROS: Limited secondary to clinical acuity. Past medical history: See below Surgical history: See below Social history: See below Physical Exam: GENERAL: Severe distress, unresponsive. Wearing a mask. EYE EXAM: Normal conjunctiva. PERRL, no anisocoria. NECK: Supple, no nuchal rigidity, no adenopathy, non-tender. No signs of meningismus. Non-stridulous. LUNGS: Clear to auscultation. Normal chest wall mechanics. HEART: NSR, no MRG. ABDOMEN: Abdomen soft, non-tender, normo-active bowel sounds, no masses, no rebound or guarding. Midline scar well healed. BACK: No CVA TTP. SKIN: No rashes and no bruising. UPPER EXTREMITIES: Upper extremities are grossly normal. LOWER EXTREMITIES: Grossly normal, no edema. NEURO EXAM: Patient does not to move to sternal rub and does not open eyes or make any noises. Breathing spontaneously. GCS of 3. Differential diagnoses: Reactive airway disease, pneumonia, pneumothorax, COPD, CHF, infections, cardiac ischemia, pulmonary embolism, musculoskeletal, gastrointestinal, as well as other pathologies. Course: Patient was seen in [facility] at the bedside. Patient was in respiratory distress nonresponsive and was immediately moved to be 1. Patient was intubated emergently due to concern for respiratory failure and unresponsiveness. I did speak with Jaguar Mcdowell PA-C ICU. He also did speak with the [facility] medicine resident as well as Dr. Jimena Arce [facility] physician group hospitalist service. Patient was admitted to the intensive care unit X-ray was obtained. ET tube appears to be 4 cm above the dorina. I did ask RT to advance the tube 2 cm. EKG: Indication: Shortness of breath Sinus tachycardia, rate of 109, wide QRS, left bundle branch block pattern, T wave flattening in the lateral and high lateral leads. Q waves throughout. Imaging Studies: Chest x-ray 1 view Indication status post intubation Impression: ET tube 4 cm above the dorina, no obvious consolidation or pneumothorax. Cardiac monitoring: An order was placed for continuous cardiac monitoring. The monitor shows a rate of 95 with sinus rhythm. Procedures: Endotracheal Intubation performed by Dr. Baez Indication: Respiratory failure, unresponsiveness. The patient was on 100% oxygen via NRB prior to the procedure. Suction, airway equipment, RSI drugs, respiratory equipment, and appropriate personnel were prepared prior to the initiation of the procedure. A time out was taken. Induction was performed with rocuronium 75 mg. After observing the clinical benefit of the medications, the airway was easily visualized utilizing a glide scope 4.0. A 7-1/2 size ETT tube was placed atraumatically to 23 cm using standard technique. The cuff inflated without signs of malfunction. There were bilateral breath sounds, positive colormetric change, no gastric sounds, a good capnography waveform, and post procedure pulse oximetry was 99%. Post intubation sedation and paralysis was administered using propofol. There were no comp lications. Post intubation chest x-ray showed ET tube in place 4 cm above dorina. MDM: Patient was seen and evaluated the bedside. Patient was moved to be wanted respiratory distress subsequently intubated. The patient did have blood work completed and was admitted to the intensive care unit. Patient's initial ABG did show pH 7.1. Did increase the patient's rate and PEEP. EKG showed sinus t achycardia. Patient does have positive troponin elevated BNP. Kidney function is at baseline. White count is elevated. Globin mild anemia. Differin was ordered as needed for his blood pressure is when he initially came in it was 180. I did speak with the on-call hospitalist as well as office specialist. The patient was subsequently admitted to the intensive care unit. I have personally spent 120 minutes of critical care time in direct management of this patient. This includes bedside care, interpretation of diagnostic studies, and testing, discussion with consultants, patient, and family members, and other require inpatient management activities. This 120 minutes is in excess of all separately billable procedures. Past Med/Surg History Medical History Anemia CAD (coronary artery disease) MIXED AORTIC VALVE DISORDER; MITRAL REGURGITATION Chronic congestive heart failure 02/16/2020 - CURRENTLY DENIES ANY INCREASED SHORTNESS OF BREATH FROM BASELINE. CHEST PAIN HAS SUBSIDED SINCE STARTING HYDRALAZINE Chronic kidney disease STAGE 3-4 COPD (chronic obstructive pulmonary disease) Heme positive stool REASON FOR COLONOSCOPY/EGD Hyperlipidemia Hypertension Hyponatremia CHRONIC Iron deficiency anemia REASON FOR COLONOSCOPY/EGD Ischemic cardiomyopathy EJECTION FRACTION 35-40% Left bundle branch block (Acute) Nocturnal hypoxemia due to emphysema 3 L OF O2 AT HS. DOES NOT NEED ANY OXYGEN DURING THE DAY. 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 RESIDUAL 40% 2ND OBTUSE MARGINAL STENOSIS. (PATIENT INSTRUCTED TO STAY ON BOTH ASPIRIN AND PLAVIX FOR HIS COLONOSCOPY AND EGD PROCEDURE ON 02/17/2020.) Social History Preferred Language: Lao Communication Ability: Effective [employer] Required: No Beliefs That Will Affect Care: None Current Living Situation: Alone Current Living Situation Comment: unknown pt intubated and sedated. no family present Feels Safe at Home: Yes Smoking Status: Unknown if ever smoked Hx Alcohol Use: Yes Alcohol type: beer Hx Substance Use: No Allergies Allergies Allergy/AdvReac Type Severity Reaction Status Date / Time No Known Allergies Allergy Unknown Verified 02/25/20 00:53 Home Meds Home Medications Medication Instructions Recorded Confirmed aspirin 81 mg PO QAM 11/03/19 02/25/20 amlodipine 10 mg PO QAM 11/30/19 02/25/20 atorvastatin 80 mg PO HS 11/30/19 02/25/20 carvedilol 6.25 mg PO BID 11/30/19 02/25/20 clopidogrel [Plavix] 75 mg PO QAM 11/30/19 02/25/20 pantoprazole 40 mg PO QAM 11/30/19 02/25/20 cholecalciferol (vitamin D3) 2,000 unit PO QAM 12/24/19 02/25/20 ferrous sulfate [iron] 325 mg PO QAM 02/16/20 02/25/20 furosemide 20 mg PO TUTH 02/16/20 02/25/20 furosemide [Lasix] 40 mg PO QAM 02/16/20 02/25/20 hydralazine 12.5 mg PO BID 02/16/20 02/25/20 Previous Rx's Medication Instructions Recorded Spacer for Inhaler #1 ea 02/21/20 albuterol sulfate 1 puffs INH Q6H PRN #18 gm 02/21/20 isosorbide mononitrate 30 mg PO BID #60 tab 02/21/20 tiotropium bromide [Spiriva with 1 cap INH DAILY #30 puffs 02/21/20 HandiHaler] Results & Data (ED) Vital Signs Vital Signs - 24 hr 02/25/20 00:25 02/25/20 00:27 02/25/20 00:30 Temperature Temperature Source Pulse Rate 99 H 88 Pulse Rate from SpO2 Sensor Respiratory Rate 30 H 31 H 29 H Blood Pressure 191/98 H 191/98 H Blood Pressure Mean 149 129 Pulse Oximetry Oxygen Delivery Method Fraction of Inspired Oxygen Sepsis Recent Fever Within 48 Hours No Sepsis Action Taken by Nursing No Action Required End-Tidal CO2 02/25/20 00:31 02/25/20 00:36 02/25/20 00:40 Temperature Temperature Source Pulse Rate 85 85 117 H Pulse Rate from SpO2 Sensor 78 85 117 H Respiratory Rate Blood Pressure 174/108 H Blood Pressure Mean 142 Pulse Oximetry 100 100 100 Oxygen Delivery Method Fraction of Inspired Oxygen Sepsis Recent Fever Within 48 Hours Sepsis Action Taken by Nursing End-Tidal CO2 02/25/20 00:46 02/25/20 00:50 02/25/20 00:51 Temperature Temperature Source Pulse Rate 99 H 103 H 102 H Pulse Rate from SpO2 Sensor 99 H 103 H 102 H Respiratory Rate 16 Blood Pressure 122/73 145/82 H Blood Pressure Mean 90 100 Pulse Oximetry 100 99 99 Oxygen Delivery Method Fraction of Inspired Oxygen 40 Sepsis Recent Fever Within 48 Hours Sepsis Action Taken by Nursing End-Tidal CO2 64 65 02/25/20 01:00 02/25/20 01:08 02/25/20 01:10 Temperature 36.5 C Temperature Source Oral Pulse Rate 100 H 94 H Pulse Rate from SpO2 Sensor 100 H 94 H Respiratory Rate Blood Pressure Blood Pressure Mean Pulse Oximetry 99 97 96 Oxygen Delivery Method Mechanical Vent Fraction of Inspired Oxygen 60 Sepsis Recent Fever Within 48 Hours Sepsis Action Taken by Nursing End-Tidal CO2 59 55 02/25/20 01:11 02/25/20 01:20 02/25/20 01:30 Temperature Temperature Source Pulse Rate 93 H 88 Pulse Rate from SpO2 Sensor 93 H 88 Respiratory Rate Blood Pressure Blood Pressure Mean Pulse Oximetry 96 95 95 Oxygen Delivery Method Mechanical Vent Fraction of Inspired Oxygen Sepsis Recent Fever Within 48 Hours Sepsis Action Taken by Nursing End-Tidal CO2 55 53 02/25/20 01:40 02/25/20 01:50 02/25/20 02:00 Temperature Temperature Source Pulse Rate 85 83 81 Pulse Rate from SpO2 Sensor 85 83 81 Respiratory Rate Blood Pressure Blood Pressure Mean Pulse Oximetry 97 96 96 Oxygen Delivery Method Fraction of Inspired Oxygen Sepsis Recent Fever Within 48 Hours Sepsis Action Taken by Nursing End-Tidal CO2 41 39 39 02/25/20 02:04 Temperature Temperature Source Pulse Rate 82 Pulse Rate from SpO2 Sensor 82 Respiratory Rate Blood Pressure 165/83 H Blood Pressure Mean 104 Pulse Oximetry 96 Oxygen Delivery Method Fraction of Inspired Oxygen Sepsis Recent Fever Within 48 Hours Sepsis Action Taken by Nursing End-Tidal CO2 39 Home Medications Current Medication List: was personally reviewed by me Laboratory Data Attestation: I reviewed the patient's lab results. Result diagrams: 02/25/20 01:38 02/25/20 00:43 Lab Results 02/25/20 02/25/20 02/25/20 Range/Units 00:43 00:43 00:43 WBC Cancelled RBC Cancelled Hgb Cancelled Hct Cancelled MCV Cancelled MCH Cancelled MCHC Cancelled RDW Std Deviation Cancelled RDW Coeff of Monika Cancelled Plt Count Cancelled MPV Cancelled Immature Gran % (Auto) Cancelled Neut % (Auto) Cancelled Lymph % (Auto) Cancelled [place] % (Auto) Cancelled Eos % (Auto) Cancelled Baso % (Auto) Cancelled Immature Gran # (Auto) Cancelled Neut # (Auto) Cancelled Lymph # (Auto) Cancelled [place] # (Auto) Cancelled Eos # (Auto) Cancelled Baso # (Auto) Cancelled Absolute Nucleated RBC Cancelled Nucleated RBC % (auto) Cancelled Neutrophils % (Manual) Cancelled Band Neutrophils % Cancelled Lymphocytes % (Manual) Cancelled Prolymphocyte % Cancelled Reactive Lymphs % (Man) Cancelled Monocytes % (Manual) Cancelled Eosinophils % (Manual) Cancelled Basophils % (Manual) Cancelled Metamyelocytes % (Man) Cancelled Myelocytes % (Man) Cancelled Promyelocytes % (Man) Cancelled Blast Cells % (Manual) Cancelled Plasma Cell % (Manual) Cancelled Other Cells % Cancelled Nucleated RBC % Cancelled Neutrophils # (Manual) Cancelled Band Neutrophils # Cancelled Total Absolute Neuts Cancelled Lymphocytes # (Manual) Cancelled Prolymphocyte # Cancelled Reactive Lymphs # Cancelled Total Abs Lymphocytes Cancelled Monocytes # (Manual) Cancelled Eosinophils # (Manual) Cancelled Basophils # (Manual) Cancelled Metamyelocytes # (Man) Cancelled Myelocytes # (Manual) Cancelled Promyelocytes # (Man) Cancelled Blast Cells # (Man) Cancelled Plasma Cell # (Manual) Cancelled Other Cells # Cancelled Nucleated RBCs # (Man) Cancelled Hypersegmented Neuts Cancelled Hyposegmented Neuts Cancelled Hypogranular Neuts Cancelled Large Granular Lymphs Cancelled # Lrg Granular Lymphs Cancelled Hairy Cells Cancelled Smudge Cells Cancelled Toxic Granulation Cancelled Toxic Vacuolation Cancelled Dohle Bodies Cancelled Sue Rods Cancelled Platelet Estimate Cancelled Hypogranular Platelets Cancelled Clumped Platelets Cancelled Giant Platelets Cancelled Platelet Satelliting Cancelled RBC Morphology Cancelled Polychromasia Cancelled Hypochromasia Cancelled Poikilocytosis Cancelled Basophilic Stippling Cancelled Anisocytosis Cancelled Microcytosis Cancelled Macrocytosis Cancelled Spherocytes Cancelled Pappenheimer Bodies Cancelled Sickle Cells Cancelled Target Cells Cancelled Tear Drop Cells Cancelled Ovalocytes Cancelled Stomatocytes Cancelled Mazariegos-Penbrook Bodies Cancelled Echinocytes Cancelled Acanthocytes (Spur) Cancelled Rouleaux Cancelled RBC Agglutinates Cancelled Schistocytes Cancelled RBC Morph Comment Cancelled Sezary Cell Cancelled PT INR APTT PTT Ratio Sodium 133 L (136-145) mmol/L Potassium 3.9 (3.5-5.1) mmol/L Chloride 102 (98-107) mmol/L Carbon Dioxide 26 (21-32) mmol/L Anion Gap 5.0 (3-11) BUN 38 H (7-18) mg/dl Creatinine 2.51 H (0.6-1.4) mg/dl Est Cr Clr Drug Dosing Not Reportable Est GFR ( Amer) 30.6 Est GFR (Non-Af Amer) 26.4 BUN/Creatinine Ratio 15.3 (10-20) Glucose 111 H (70-99) mg/dl Lactate (0.4-2.0) mmol/L Calcium 8.9 (8.5-10.1) mg/dl Phosphorus 7.0 H (2.5-4.9) mg/dl Magnesium 2.6 H (1.8-2.4) mg/dl Total Bilirubin 0.3 (0.2-1) mg/dl AST 19 (15-37) U/L ALT 26 (12-78) U/L Alkaline Phosphatase 88 (45-117) U/L Troponin I 0.801 H* (0-0.045) ng/ml NT-Pro-B Natriuret Pep 6366 H (0-900) pg/ml Total Protein 8.4 H (6.4-8.2) gm/dl Albumin 3.8 (3.4-5.0) gm/dl Globulin 4.6 H (2.5-4.0) gm/dl Albumin/Globulin Ratio 0.8 L (0.9-2) Procalcitonin Cancelled 02/25/20 02/25/20 02/25/20 Range/Units 00:43 01:38 01:38 WBC RBC Hgb Hct MCV MCH MCHC RDW Std Deviation RDW Coeff of Monika Plt Count MPV Immature Gran % (Auto) Neut % (Auto) Lymph % (Auto) [place] % (Auto) Eos % (Auto) Baso % (Auto) Immature Gran # (Auto) Neut # (Auto) Lymph # (Auto) [place] # (Auto) Eos # (Auto) Baso # (Auto) Absolute Nucleated RBC Nucleated RBC % (auto) Neutrophils % (Manual) Band Neutrophils % Lymphocytes % (Manual) Prolymphocyte % Reactive Lymphs % (Man) Monocytes % (Manual) Eosinophils % (Manual) Basophils % (Manual) Metamyelocytes % (Man) Myelocytes % (Man) Promyelocytes % (Man) Blast Cells % (Manual) Plasma Cell % (Manual) Other Cells % Nucleated RBC % Neutrophils # (Manual) Band Neutrophils # Total Absolute Neuts Lymphocytes # (Manual) Prolymphocyte # Reactive Lymphs # Total Abs Lymphocytes Monocytes # (Manual) Eosinophils # (Manual) Basophils # (Manual) Metamyelocytes # (Man) Myelocytes # (Manual) Promyelocytes # (Man) Blast Cells # (Man) Plasma Cell # (Manual) Other Cells # Nucleated RBCs # (Man) Hypersegmented Neuts Hyposegmented Neuts Hypogranular Neuts Large Granular Lymphs # Lrg Granular Lymphs Hairy Cells Smudge Cells Toxic Granulation Toxic Vacuolation Dohle Bodies Sue Rods Platelet Estimate Hypogranular Platelets Clumped Platelets Giant Platelets Platelet Satelliting RBC Morphology Polychromasia Hypochromasia Poikilocytosis Basophilic Stippling Anisocytosis Microcytosis Macrocytosis Spherocytes Pappenheimer Bodies Sickle Cells Target Cells Tear Drop Cells Ovalocytes Stomatocytes Mazariegos-Penbrook Bodies Echinocytes Acanthocytes (Spur) Rouleaux RBC Agglutinates Schistocytes RBC Morph Comment Sezary Cell PT Cancelled 11.4 INR Cancelled 1.1 APTT Cancelled 24.5 PTT Ratio Cancelled 0.9 Sodium (136-145) mmol/L Potassium (3.5-5.1) mmol/L Chloride (98-107) mmol/L Carbon Dioxide (21-32) mmol/L Anion Gap (3-11) BUN (7-18) mg/dl Creatinine (0.6-1.4) mg/dl Est Cr Clr Drug Dosing Est GFR ( Amer) Est GFR (Non-Af Amer) BUN/Creatinine Ratio (10-20) Glucose (70-99) mg/dl Lactate (0.4-2.0) mmol/L Calcium (8.5-10.1) mg/dl Phosphorus (2.5-4.9) mg/dl Magnesium (1.8-2.4) mg/dl Total Bilirubin (0.2-1) mg/dl AST (15-37) U/L ALT (12-78) U/L Alkaline Phosphatase (45-117) U/L Troponin I (0-0.045) ng/ml NT-Pro-B Natriuret Pep (0-900) pg/ml Total Protein (6.4-8.2) gm/dl Albumin (3.4-5.0) gm/dl Globulin (2.5-4.0) gm/dl Albumin/Globulin Ratio (0.9-2) Procalcitonin 0.06 02/25/20 02/25/20 Range/Units 01:38 01:49 WBC 20.98 H RBC 3.88 L Hgb 12.0 L Hct 37.2 L MCV 95.9 MCH 30.9 MCHC 32.3 RDW Std Deviation 54.0 H RDW Coeff of Monika 15.3 H Plt Count 326 MPV 10.1 Immature Gran % (Auto) 0.5 Neut % (Auto) 88.0 Lymph % (Auto) 6.3 [place] % (Auto) 3.0 Eos % (Auto) 2.0 Baso % (Auto) 0.2 Immature Gran # (Auto) 0.10 H Neut # (Auto) 18.45 H Lymph # (Auto) 1.32 [place] # (Auto) 0.63 H Eos # (Auto) 0.43 Baso # (Auto) 0.05 Absolute Nucleated RBC Nucleated RBC % (auto) Neutrophils % (Manual) Band Neutrophils % Lymphocytes % (Manual) Prolymphocyte % Reactive Lymphs % (Man) Monocytes % (Manual) Eosinophils % (Manual) Basophils % (Manual) Metamyelocytes % (Man) Myelocytes % (Man) Promyelocytes % (Man) Blast Cells % (Manual) Plasma Cell % (Manual) Other Cells % Nucleated RBC % Neutrophils # (Manual) Band Neutrophils # Total Absolute Neuts Lymphocytes # (Manual) Prolymphocyte # Reactive Lymphs # Total Abs Lymphocytes Monocytes # (Manual) Eosinophils # (Manual) Basophils # (Manual) Metamyelocytes # (Man) Myelocytes # (Manual) Promyelocytes # (Man) Blast Cells # (Man) Plasma Cell # (Manual) Other Cells # Nucleated RBCs # (Man) Hypersegmented Neuts Hyposegmented Neuts Hypogranular Neuts Large Granular Lymphs # Lrg Granular Lymphs Hairy Cells Smudge Cells Toxic Granulation Toxic Vacuolation Dohle Bodies Sue Rods Platelet Estimate Hypogranular Platelets Clumped Platelets Giant Platelets Platelet Satelliting RBC Morphology Polychromasia Hypochromasia Poikilocytosis Basophilic Stippling Anisocytosis Microcytosis Macrocytosis Spherocytes Pappenheimer Bodies Sickle Cells Target Cells Tear Drop Cells Ovalocytes Stomatocytes PanchitoPenbrook Bodies Echinocytes Acanthocytes (Spur) Rouleaux RBC Agglutinates Schistocytes RBC Morph Comment Sezary Cell PT INR APTT PTT Ratio Sodium (136-145) mmol/L Potassium (3.5-5.1) mmol/L Chloride (98-107) mmol/L Carbon Dioxide (21-32) mmol/L Anion Gap (3-11) BUN (7-18) mg/dl Creatinine (0.6-1.4) mg/dl Est Cr Clr Drug Dosing Est GFR ( Amer) Est GFR (Non-Af Amer) BUN/Creatinine Ratio (10-20) Glucose (70-99) mg/dl Lactate 1.2 (0.4-2.0) mmol/L Calcium (8.5-10.1) mg/dl Phosphorus (2.5-4.9) mg/dl Magnesium (1.8-2.4) mg/dl Total Bilirubin (0.2-1) mg/dl AST (15-37) U/L ALT (12-78) U/L Alkaline Phosphatase (45-117) U/L Troponin I (0-0.045) ng/ml NT-Pro-B Natriuret Pep (0-900) pg/ml Total Protein (6.4-8.2) gm/dl Albumin (3.4-5.0) gm/dl Globulin (2.5-4.0) gm/dl Albumin/Globulin Ratio (0.9-2) Procalcitonin Administered Medications Propofol (Diprivan) 1,000 mg in 100 mls @ 1.905 mls/hr IV .Q24H GILBERT; Protocol Stop: 02/28/20 01:14 Last Admin: 02/25/20 01:20 Dose: 5 mcg/kg/min, 1.9 mls/hr Documented by: [id number] Cosigned by: [id number] Discontinued Medications Furosemide (Lasix) 40 mg IV NOW STA Stop: 02/25/20 00:47 Last Admin: 02/25/20 01:00 Dose: 40 mg Documented by: [id number] Miscellaneous () Confirm Administered Dose 1 ea .ROUTE .STK-MED ONE Stop: 02/25/20 00:30 Last Admin: 02/25/20 00:38 Dose: 1 ea Documented by: [id number] Miscellaneous () 1 ea N/A NOW STA Stop: 02/25/20 01:13 Last Admin: 02/25/20 01:38 Dose: 1 ea Documented by: [id number] Propofol (Diprivan) Confirm Administered Dose 1,000 mg IV .STK-MED ONE Stop: 02/25/20 00:32 Last Admin: 02/25/20 01:38 Dose: Not Given Documented by: [id number] Propofol (Diprivan) Confirm Administered Dose 200 mg IV .STK-MED ONE Stop: 02/25/20 00:33 Last Admin: 02/25/20 01:38 Dose: Not Given Documented by: [id number] Blood Pressure Blood Pressure Findings: Elevated blood pressure Blood Pressure Disposition: further management by hospitalist Discharge Plan Visit Data Chief Complaint: Shortness of Breath/Dyspnea Stated Complaint: SHORT OF BREATH ED Provider: Gopal Baez Discharge Problem: Respiratory failure with hypoxia, Elevated troponin I level, CHF (congestive heart failure), Hypertensive emergency Patient Disposition: Admitted As Inpatient Discharge Instructions Interventions: ED Discharge Assessment Last Done: 02/25/20 02:19 Discharge Problem: Respiratory failure with hypoxia Qualifiers: Chronicity: acute on chronic Qualified Code(s): J96.21 - Acute and chronic respiratory failure with hypoxia CHF (congestive heart failure) Qualifiers: Heart failure type: unspecified Heart failure chronicity: acute on chronic Q ualified Code(s): I50.9 - Heart failure, unspecified
[2020-02-25 01:08] LABS: Alanine Aminotransferase 26 U/L (12-78); Albumin Level 3.8 gm/dl (3.4-5.0); Aspartate Aminotransferase 19 U/L (15-37); BUN Creatinine Ratio 15.3 (10-20); Blood Urea Nitrogen 38 mg/dl (7-18); Calcium 8.9 mg/dl (8.5-10.1); Carbon Dioxide 26 mmol/L (21-32); Chloride 102 mmol/L (98-107); Est GFR (African American) 30.6; Est GFR (Non-African American) 26.4; Glucose 111 mg/dl (70-99); Magnesium 2.6 mg/dl (1.8-2.4); Potassium 3.9 mmol/L (3.5-5.1); Sodium 133 mmol/L (136-145)
[2020-02-25] MEDS ORDERED: STAT IV Infusion **Titration per Protocol STA (01:12)
[2020-02-25] MEDS ORDERED: propofoL 1,000 MG/100 ML VIAL IV SCH ×2 (01:15→07:45)
[2020-02-25 01:16] LABS: Albumin Globulin Ratio 0.8 (0.9-2); Alkaline Phosphatase 88 U/L (45-117); Bilirubin,Total 0.3 mg/dl (0.2-1); Globulin 4.6 gm/dl (2.5-4.0); NT Pro B Type Natriuretic Pept 6366 pg/ml (0-900); Total Protein 8.4 gm/dl (6.4-8.2); Troponin I 0.801 ng/ml (0-0.045)
[2020-02-25 01:43] LABS: Appearance Urine Cloudy (Clear); Bacteria Urine Automated Negative (Negative); Bilirubin Urine Negative (Negative); Blood Urine Negative (Negative); Color Urine Yellow; Glucose Urine UA Negative (Negative); Ketones Urine Negative (Negative); Leukocyte Esterase Urine Negative (Negative); Nitrite Urine Negative (Negative); Protein Urine 2+ (Negative); RBC Urine Automated 0-4 /hpf (0-4); Specific Gravity Urine 1.015 (1.000-1.030); Urobilinogen Urine Negative (Negative)
--- NOTE | 2020-02-25 01:56 | History & Physical Report ---
Date of Service February 25, 2020 Assessment & Plan (1) Acute hypoxemic respiratory failure: Keron Fall is a 60-year-old male with a past medical history of an STEMI and CAD status post PCI with MARY to LAD x3 in 12/04/2019 with residual CHF and reduced ejection fraction, CKD 3, hypertension, hyperlipidemia, COPD, and PVD who presented to the emergency department by ambulance after they were reportedly called for Mr. weber having shortness of breath. On arrival to the emergency department patient was unresponsive and did not respond to sternal rub by the emergency department physician and required intubation. Acute hypoxic respiratory failure Unclear etiology, suspect infectious versus cardiac Per family collateral patient without recent travel, COVID exposure, fever, cough, or new respiratory symptoms in the preceding days but notes that he lives alone. Patient has a history of heart failure with reduced ejection fraction and prior decompensations due to dietary indiscretion, chest x-ray with some diffuse congestion but no ghislaine effusion or fluid overload. Legs without pitting edema Leukocytosis appreciated on admission, suspicious for potential pneumonia Intubated for respiratory support, undergoing transfer to ICU Cefepime/vancomycin with renal dosing Procalcitonin pending Blood cultures pending Sputum cultures pending Heart failure with reduced ejection fraction, CAD with recent 3X MARY to LAD in November 2019 Continue prior to admission amlodipine, carvedilol via OG once placed Continue ASA/Plaavix at this time Troponin pending, trend x3 EKG without acute change proBNP mildly elevated from prior If troponin increasing recommend heparinization and cardiac consult Leukocytosis Suspicious for pulmonary origin, cefepime/vancomycin renally dosed as above CBC daily Hypertension Antihypertensives as above COPD Pending PFTs as outpatient Respiratory protocol per ICU at this time, patient intubated Peripheral vascular disease History of right common iliac to right femoral bypass in 1999, aortobifemoral bypass 06/2004 No signs of lower extremity ischemia on admission DVT prophylaxis: Heparin 5000 every 8 hours, pending evaluation of troponins and cardiac function as above CODE STATUS: Full code per history, unable to verify with patient. Pending collateral from family Diet: N.p.o., pending nutritional assessment in ICU Disposition: Admit to ICU (2) Chronic kidney disease, stage 3 (moderate): (3) Congestive heart disease: (4) Ischemic cardiomyopathy: (5) Respiratory acidosis: (6) CAD (coronary artery disease): (7) Hypertension: (8) Hyperlipidemia: (9) Peripheral vascular disease: (10) COPD (chronic obstructive pulmonary disease): History of Present Illness Primary Care Provider: Carmen Viramontes PA-C Keron Fall is a 60-year-old male with a past medical history of an STEMI and CAD status post PCI with MARY to LAD x3 in 12/04/2019 with residual CHF and reduced ejection fraction, CKD 3, hypertension, hyperlipidemia, COPD, and PVD who presented to the emergency department by ambulance after they were reportedly called for Mr. weber having shortness of breath. On arrival to the emergency department patient was unresponsive and did not respond to sternal rub by the emergency department physician. Emergency department physician was also informed that he had been having shortness of breath just prior to admission. Following assessment in the emergency department patient was intubated. Case was discussed with ICU provider and decision was made to admit to the ICU for further care. Of note patient had recently been admitted to the hospital from 02/16 to 02/20 for congestive heart failure due to dietary indiscretion. Call made to his primary contact Thao Middleton, patient's sister, to discuss his care and obtain collateral information. She reports that since his prior discharge he has had shortness of breath with ambulation but has not voiced any worsening or increasing symptoms. She notes that he has gotten portable oxygen at home and is on daytime and nighttime oxygen. She reports that he had not been having any cough, fever, sensation change, he had no recent travel, had not come into contact with any COVID positive patients, and had not been tested for COVID previous to his admission. She reports that he had not expressed any new symptoms or sudden illness on the phone in the previous 2 days. She notes that while he does not have a formal POA, his decision maker would likely be his daughter Munira Marinelli available at [phone]. Medical history: Reviewed in EMR Surgical history: Reviewed in EMR Medications: Reviewed in EMR Allergies: Reviewed in EMR Updated history unobtainable due to ETT. CODE STATUS: Full code on prior admission Allergies Allergy/AdvReac Type Severity Reaction Status Date / Time No Known Allergies Allergy Unknown Verified 02/25/20 00:53 Home Medications Home Medications Medication Instructions Recorded Confirmed Type aspirin 81 mg PO QAM 11/03/19 02/25/20 History amlodipine 10 mg PO QAM 11/30/19 02/25/20 History atorvastatin 80 mg PO HS 11/30/19 02/25/20 History carvedilol 6.25 mg PO BID 11/30/19 02/25/20 History clopidogrel [Plavix] 75 mg PO QAM 11/30/19 02/25/20 History pantoprazole 40 mg PO QAM 11/30/19 02/25/20 History cholecalciferol (vitamin D3) 2,000 unit PO QAM 12/24/19 02/25/20 History ferrous sulfate [iron] 325 mg PO QAM 02/16/20 02/25/20 History furosemide 20 mg PO TUTH 02/16/20 02/25/20 History furosemide [Lasix] 40 mg PO QAM 02/16/20 02/25/20 History hydralazine 12.5 mg PO BID 02/16/20 02/25/20 History Spacer for Inhaler #1 ea 02/21/20 02/25/20 Rx albuterol sulfate 1 puffs INH Q6H PRN #18 gm 02/21/20 02/25/20 Rx isosorbide mononitrate 30 mg PO BID #60 tab 02/21/20 02/25/20 Rx tiotropium bromide [Spiriva with 1 cap INH DAILY #30 puffs 02/21/20 02/25/20 Rx HandiHaler] Past Med/Surg History Medical History Anemia CAD (coronary artery disease) MIXED AORTIC VALVE DISORDER; MITRAL REGURGITATION Chronic congestive heart failure 02/16/2020 - CURRENTLY DENIES ANY INCREASED SHORTNESS OF BREATH FROM BASELINE. CHEST PAIN HAS SUBSIDED SINCE STARTING HYDRALAZINE Chronic kidney disease STAGE 3-4 COPD (chronic obstructive pulmonary disease) Heme positive stool REASON FOR COLONOSCOPY/EGD Hyperlipidemia Hypertension Hyponatremia CHRONIC Iron deficiency anemia REASON FOR COLONOSCOPY/EGD Ischemic cardiomyopathy EJECTION FRACTION 35-40% Left bundle branch block (Acute) Nocturnal hypoxemia due to emphysema 3 L OF O2 AT HS. DOES NOT NEED ANY OXYGEN DURING THE DAY. NSTEMI (non-ST elevated myocardial infarction) Osteoarthritis Peripheral vascular disease WITH BL CAROTID BRUITS BILATERL SFA OCCLUSIONS Surgical History Amputation of fifth toe of right foot H/O vascular surgery RIGHT FEM-POP BYBASS, AORTOBIFEMORAL BYPASS IN 2004, PRIOR RIGHT ILIOFEMORAL BYPASS (PATIENT STATE HE HAS HAD 4 VASCULAR SURGERIES) History of cardiac cath S/P PCI TO THE PROCIMAL AND MID LAD WITH 3 DRUG-ELUTING STENTS NOVEMBER 06, 2019. RESIDUAL 40% 2ND OBTUSE MARGINAL STENOSIS. (PATIENT INSTRUCTED TO STAY ON BOTH ASPIRIN AND PLAVIX FOR HIS COLONOSCOPY AND EGD PROCEDURE ON 02/17/2020.) Social History Preferred Language: Nigerien Communication Ability: Effective Highway Technician Required: No Beliefs That Will Affect Care: None Current Living Situation: Alone Current Living Situation Comment: unknown pt intubated and sedated. no family present Feels Safe at Home: Yes Smoking Status: Unknown if ever smoked Hx Alcohol Use: Yes Alcohol type: beer Hx Substance Use: No Review of Systems Review of Systems: Unobtainable due to cognitive status Physical Exam Physical Exam: General: Intubated. Appears ill. Skin moist. HEENT: Atraumatic, normocephalic. PERLAA. Pulm: Anterior and posterior lung mccormack with diffuse inspiratory and expiratory crackles, without focal rales. Symmetrical chest rise. Cardiac: RRR. 3/6 systolic murmur appreciated at left sternal border.. Radial pulses intact and symmetrical. Abdominal: Nondistended, soft. BS present. Extremities: No pitting edema in the legs bilaterally. PT pulses intact and symmetrical bilaterally. Extremities warm, moist. Results & Data Results & Data ([facility]) Vital Signs (Past 12 Hours) Vital Signs Temp Pulse Resp BP Pulse Ox 02/25/20 01:11 96 02/25/20 01:10 36.5 C 02/25/20 01:08 97 02/25/20 01:00 100 H 99 02/25/20 00:51 102 H 145/82 H 99 02/25/20 00:50 103 H 99 02/25/20 00:46 99 H 122/73 100 02/25/20 00:40 117 H 100 02/25/20 00:36 85 174/108 H 100 02/25/20 00:31 85 100 02/25/20 00:30 29 H 191/98 H 02/25/20 00:27 88 31 H 02/25/20 00:25 99 H 30 H 191/98 H Supervising Physician Co-Signing Physician Notes Patient seen and examined, chart reviewed, case discussed with Dr. Ivey and I agree with his assessment and plan as documented above. Briefly, patient is a 60yo C male with history of CAD s/p STEMI s/p MARY x 3 to LAD on 12/04/19, ICM with EF of 35-40%, CKD3/HTN/HLP/?COPD. He was recently admitted to [facility] for acute exacerbation of CHF secondary to high dietary salt intake. He was discharged home on 02/21/20 in stable condition. He was brought in by EMS this evening for respiratory distress - received Solumedrol and nebs en route to ER. Upon ER evaluation patient was unresponsive to sternal rub therefore was emergently intubated. On exam he is intubated, sedated, appears comfortable Skin -intact, no rashes/lesions HEENT - NC/AT, PERRL, anicteric, ETT in place Heart - +S1/S2, regular, 2/6 JOSÉ ANTONIO Lungs - Coarse breath sounds anteriorly with scattered end-expiratory wheezing Abd - +BS, soft, NT/ND Ext - Warm, well perfused, no clubbing/cyanosis/edema Labs and images reviewed. Significant for neutrophil predominant leukocytosis with WBC=20.98, stable normochromic/normocytic anemia, stable hyponatremia with Bz=502, BUN=38 and Cr=2.51 which is near baseline Lactate normal at 1.2, Procalcitonin=0.06 Troponin mildly elevated at 0.801 - increased from prior value of 0.063 on 02/18/20 BNP elevated at 6366 CXR with bilateral airspace disease - ?pulm edema EKG with LBBB Assessment/Plan -patient with respiratory failure, emergently intubated in the MICU. Broad ddx to include CHF, ACS, COPD, infectious process. Doubt Covid-19 as patient with no known travel or exposure -Admit to MICU -Trend troponin, check 2D echo -Empiric antibiotics -Ventilator management -Remainder of plan as above Resident Activity Tracking Resident Involvement: Resident Care Provided Care Provided: Adult Hospital Medicine (1) CAD (coronary artery disease) Associated angina: without angina Coronary Disease-Associated Artery/Lesion type: [place] artery [place] vs. transplanted heart: [place] heart Qualified Code(s): I25.10 - Atherosclerotic heart disease of [place] coronary artery without angina pectoris
[2020-02-25 02:03] LABS: Basophils # (auto) 0.05 K/uL (0-0.2); Basophils % (auto) 0.2 %; Eosinophils # (auto) 0.43 K/uL (0-0.5); Hematocrit (blood only) 37.2 % (42-52); Immature Granulocytes % (auto) 0.5 %; Lymphocytes # (auto) 1.32 K/uL (1.2-3.4); Lymphocytes % (auto) 6.3 %; Mean Corpuscular Hemoglobin 30.9 pg (25-34); Mean Corpuscular Hgb Conc 32.3 g/dL (32-36); Mean Corpuscular Volume 95.9 fL (80-100); Mean Platelet Volume 10.1 fL (7.4-10.4); Monocytes # (auto) 0.63 K/uL (0.11-0.59); Neutrophils # (auto) 18.45 K/uL (1.4-6.5); Platelet Count 326 K/uL (130-400); RDW Coefficient of Variation 15.3 % (11.5-14.5); Red Blood Count 3.88 M/uL (4.7-6.1); White Blood Count 20.98 K/uL (4.8-10.8)
[2020-02-25 02:13] LABS: INR 1.1 (0.9-1.1); Partial Thromboplastin Ratio 0.9; Partial Thromboplastin Time 24.5 Seconds (21.0-31.0); Prothrombin Time 11.4 Seconds (9.0-12.0)
[2020-02-25] MEDS ORDERED: PATIENT'S HEIGHT NEEDED SCH (02:15)
--- NOTE | 2020-02-25 03:21 | Billing Data ---
Date of Service February 25, 2020 Coding Level of Care Code Critical Care 1st - mins
[2020-02-25] MEDS ORDERED: FUROSEMIDE 40 MG in SYRINGE 0 ML IV ONE ×2 (03:27→10:00)
[2020-02-25] MEDS ORDERED: ICU PROTOCOL FOR HYPERGLYCEMIA PRN ×2 (03:31→03:32)
[2020-02-25] MEDS ORDERED: VANCOMYCIN CONSULT ACTIVE PRN (03:32)
[2020-02-25] MEDS ORDERED: FUROSEMIDE 40 MG/4 ML VIAL IV ONE (03:45)
[2020-02-25] MEDS ORDERED: VANCOMYCIN HCL 1,250 MG in SODIUM CHLORIDE 0.9% 250 ML IV ONE (04:00)
[2020-02-25] MEDS ORDERED: CEFEPIME CONSULT ACTIVE PRN (04:03)
[2020-02-25] MEDS ORDERED: CEFEPIME 2,000 MG in SYRINGE 7.5 ML IV ONE (04:30)
[2020-02-25] MEDS: fentaNYL citrate 100 MCG/2 ML VIAL IV PRN (04:35)
[2020-02-25 05:00] LABS: Basophils # (auto) 0.02 K/uL (0-0.2); Basophils % (auto) 0.1 %; Eosinophils % (auto) 0.6 %; Hematocrit (blood only) 38.3 % (42-52); Hemoglobin 12.3 g/dL (14.0-18.0); Immature Granulocytes # (auto) 0.05 K/uL (0.00-0.02); Immature Granulocytes % (auto) 0.3 %; Lymphocytes # (auto) 0.51 K/uL (1.2-3.4); Lymphocytes % (auto) 3.1 %; Mean Corpuscular Hemoglobin 30.9 pg (25-34); Mean Corpuscular Hgb Conc 32.1 g/dL (32-36); Mean Corpuscular Volume 96.2 fL (80-100); Mean Platelet Volume 9.7 fL (7.4-10.4); Monocytes % (auto) 1.8 %; Neutrophils # (auto) 15.27 K/uL (1.4-6.5); Neutrophils % (auto) 94.1 %; Platelet Count 304 K/uL (130-400); RDW Coefficient of Variation 15.2 % (11.5-14.5); RDW Standard Deviation 53.8 fL (36.4-46.3); Red Blood Count 3.98 M/uL (4.7-6.1); White Blood Count 16.25 K/uL (4.8-10.8)
--- NOTE | 2020-02-25 05:00 | Critical Care Consultation ---
Date of Consultation February 25, 2020 Assessment & Plan (1) Admitted to intensive care unit: Reason Critically Ill: 60-year-old male with acute hypoxic respiratory failure requiring emergent endotracheal intubation. Patient requiring close monitoring with need for changes in ventilator settings. NEURO - * CAM ICU: POSITIVE CARDIAC/VASCULAR - * NSTEMI: * Patient did have downtrending of his troponin during recent admission. While patient does have chronic kidney disease, this is certainly a significant change and uptrend. I am concerned that the patient may have experienced another cardiac event given his history of coronary artery disease and prior episode of similar presentation with subsequent stenting needed. There does not appear to be obvious Scar[place]ossa Criteria given my humble EKG assessment of a patient with chronic left bundle branch block. Patient is able to report that he has no chest pain at this time. We will repeat troponin. Consider addition of heparin drip if we show substantial increase in the patient's troponin or any other acute changes. * CHF: * Strongly feel that this is likely the main contributor to the patient's presentation today. I am familiar with this patient from prior admission. Patient presents acutely short of breath. Chest x-ray does show some congestive changes. Additionally, the patient was reportedly using his inhalers at home as he was concerned that he may be having a COPD flare as well. From prior memory, the patient does tend to develop symptoms of both which can be difficult to treat until the patient is sedated and able to have opening of his airways. That being said, the patient did receive dose of IV Lasix. Will repeat if necessary. Will monitor diuresis. * Presents with hypertension and pulmonary edema more concerning for cardiogenic component in the ischemic cardiomyopathy patient. * EKG: Sinus tachycardia at 109 bpm. Chronic left bundle branch block. No Scarbossa inclusion criteria. QTc 495 ms. * Monitor on telemetry. RESPIRATORY - * Acute hypoxic respiratory failure with hypercapnia: * Requiring emergent endotracheal intubation. Patient's blood gas does appear to be more consistent with COPD exacerbation. * Regardless, will titrate down patient's ventilator settings as tolerated. * Will hold off on steroids at this point as patient has not been officially ruled out for COVID as possible source for respiratory failure. While this appears much less likely, I will defer to my daily colleagues for complete assessment in this regard. * Patient did receive one-time dose of steroids in route to the emergency department. GI/NUTRITION - * N.p.o. at this time. * Prophylaxis: Famotidine RENAL/LYTES - * CKD 3 * IVF: Hold on IV fluids in the setting of likely volume overload. - * Ding in place - Strict I&Os. ENDO - * No history of diabetes or thyroid disease. * BSGs per unit protocol. ISS --> gtt per unit policy. HEME - * Stable H&H. ID - * Cover with antibiotics for possible infiltrative disease. * Patient is presenting with leukocytosis. * Hope to de-escalate quickly. LINES/IV ACCESS - * PIVs x2 * Ding * ET tube DVT PROPHYLAXIS - * Heparin * SCDs I have personally spent 50 minutes of critical care time in the direct management of this patient. This is a life/limb threatening event. This includes time spent evaluating patient, direct bedside care, chart review, placing orders, interpretation of diagnostic studies, discussion with consultants, patient, and family members, as well as other required patient management activities. This time is exclusive of all separately billable procedures, and teaching time and separate from and in addition to any other critical care service time. Thank you for allowing us to participate in the care of this patient. Please refer to my attending physician's documentation for any further recommendations. (2) CHF (congestive heart failure): (3) Elevated troponin I level: (4) Respiratory failure with hypoxia: (5) Acute hypoxemic respiratory failure: (6) Chronic kidney disease, stage 3 (moderate): (7) Elevated troponin I level: (8) Ischemic cardiomyopathy: (9) Acute on chronic heart failure with reduced ejection fraction and diastolic dysfunction: (10) Hypoxia: (11) Pulmonary edema: (12) Left bundle branch block: (13) Aortic regurgitation: (14) Cardiomyopathy: History of Present Illness Attending Physician: Jimena Arce DO History of Present Illness Patient is a 60-year-old male with a significant past medical history of coronary artery disease status post MARY to the LAD in late October 2019, hypertension, hyperlipidemia, significant smoking history, COPD, CHF, alcoholism, and hyponatremia. Patient was recently admitted this facility after CHF exacerbation while being evaluated for hematochezia. Patient turnaround with aggressive Lasix and BiPAP. He was subsequently discharged home without issue. Patient contacted EMS with complaints of shortness of breath in the early hours in the morning. He was brought to the emergency department where he was placed on BiPAP and shortly after he was intubated. He was found to have a moderate leukocytosis. No lymphopenia. LDH is not elevated. He is without fever. Upon evaluation in the ICU, the patient is sedated, but will awaken and answer simple yes/no questions. Patient denies any chest pain at this time. He does not his head yes when asked if he had chest pain earlier in the evening and if this felt like a prior [place]. Unable to provide significant historical information secondary to current state of sedation with intubation. Allergies Allergy/AdvReac Type Severity Reaction Status Date / Time No Known Allergies Allergy Unknown Verified 02/25/20 00:53 Home Medications Home Medications Medication Instructions Recorded Confirmed Type aspirin 81 mg PO QAM 11/03/19 02/25/20 History amlodipine 10 mg PO QAM 11/30/19 02/25/20 History atorvastatin 80 mg PO HS 11/30/19 02/25/20 History carvedilol 6.25 mg PO BID 11/30/19 02/25/20 History clopidogrel [Plavix] 75 mg PO QAM 11/30/19 02/25/20 History pantoprazole 40 mg PO QAM 11/30/19 02/25/20 History cholecalciferol (vitamin D3) 2,000 unit PO QAM 12/24/19 02/25/20 History ferrous sulfate [iron] 325 mg PO QAM 02/16/20 02/25/20 History furosemide 20 mg PO TUTH 02/16/20 02/25/20 History furosemide [Lasix] 40 mg PO QAM 02/16/20 02/25/20 History hydralazine 12.5 mg PO BID 02/16/20 02/25/20 History Spacer for Inhaler #1 ea 02/21/20 02/25/20 Rx albuterol sulfate 1 puffs INH Q6H PRN #18 gm 02/21/20 02/25/20 Rx isosorbide mononitrate 30 mg PO BID #60 tab 02/21/20 02/25/20 Rx tiotropium bromide [Spiriva with 1 cap INH DAILY #30 puffs 02/21/20 02/25/20 Rx HandiHaler] Patient History Medical History Anemia CAD (coronary artery disease) MIXED AORTIC VALVE DISORDER; MITRAL REGURGITATION Chronic congestive heart failure 02/16/2020 - CURRENTLY DENIES ANY INCREASED SHORTNESS OF BREATH FROM BASELINE. CHEST PAIN HAS SUBSIDED SINCE STARTING HYDRALAZINE Chronic kidney disease STAGE 3-4 COPD (chronic obstructive pulmonary disease) Heme positive stool REASON FOR COLONOSCOPY/EGD Hyperlipidemia Hypertension Hyponatremia CHRONIC Iron deficiency anemia REASON FOR COLONOSCOPY/EGD Ischemic cardiomyopathy EJECTION FRACTION 35-40% Left bundle branch block (Acute) Nocturnal hypoxemia due to emphysema 3 L OF O2 AT HS. DOES NOT NEED ANY OXYGEN DURING THE DAY. 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 RESIDUAL 40% 2ND OBTUSE MARGINAL STENOSIS. (PATIENT INSTRUCTED TO STAY ON BOTH ASPIRIN AND PLAVIX FOR HIS COLONOSCOPY AND EGD PROCEDURE ON 02/17/2020.) Social History Preferred Language: Brazilian Communication Ability: Effective Impregnating Machine Operator Required: No Beliefs That Will Affect Care: None Current Living Situation: Alone Current Living Situation Comment: unknown pt intubated and sedated. no family present Feels Safe at Home: Yes Smoking Status: Former smoker Tobacco Type: cigarettes ; Cigarettes Per Day: QUIT 11/02/2019 ; Second Hand Exposure: No ; Hx Alcohol Use: Yes Alcohol type: beer Hx Substance Use: No Review of Systems Review of Systems: Unobtainable due to cognitive status and Unobtainable due to endotracheal tube Physical Exam Physical Exam: VITAL SIGNS - Vital signs and nursing notes were reviewed. GENERAL - 60-year-old male appearing his stated age who is in no acute distress. Intubated and sedated. HEAD - NC/AT. EYES - PERRL bilaterally. Sclera anicteric. Palpebral conjunctiva pink and moist with no injection noted. EARS - No deformities of external structures noted on gross examination bilaterally. NOSE - Midline and without cyanosis. No epistaxis or purulent drainage noted. MOUTH/OROPHARYNX - ET Tube in place. Without perioral cyanosis. Buccal mucosa pink and moist and without leukoplakia. NECK - Neck with FROM. Supple to palpation. LUNGS - Chest wall symmetric without accessory muscle use, intercostals retractions, or central cyanosis. Normal vesicular breath sounds CTA B/L. No wheezes, rales, or rhonchi appreciated. CARDIAC - RRR with S1/S2. No murmur, rubs, or gallops appreciated. No reproducible tenderness to palpation appreciated over the anterior chest wall. ABDOMEN - Abdominal contour flat without pulsations or visible masses. BS normoactive all four quadrants. No tenderness, palpable masses, hepatosplenomegaly, or ascites noted. EXTREMITIES - No clubbing or peripheral cyanosis. No pretibial edema present. +3/5 radial and dorsalis pedis pulses palpated throughout. NEUROLOGIC - Cranial nerves II through XII grossly intact. Results & Data Results & Data ([facility]) Vital Signs (Past 12 Hours) Vital Signs Temp Pulse Pulse Resp BP BP Pulse Ox 02/25/20 03:50 79 28 H 92 02/25/20 03:00 35.1 C L 74 33 H 91/55 L 92 02/25/20 02:04 82 165/83 H 96 02/25/20 02:00 81 96 02/25/20 01:50 83 96 02/25/20 01:40 85 97 02/25/20 01:30 88 95 02/25/20 01:20 93 H 95 02/25/20 01:11 96 02/25/20 01:10 36.5 C 94 H 96 02/25/20 01:08 97 02/25/20 01:00 100 H 99 02/25/20 00:51 102 H 145/82 H 99 02/25/20 00:50 103 H 16 99 02/25/20 00:46 99 H 122/73 100 02/25/20 00:40 117 H 100 02/25/20 00:36 85 174/108 H 100 02/25/20 00:31 85 100 02/25/20 00:30 29 H 191/98 H 02/25/20 00:27 88 31 H 02/25/20 00:25 99 H 30 H 191/98 H Coding Level of Care Code Critical Care 1st 30-74 mins Diagnoses Admitted to intensive care unit Z78.9 CHF (congestive heart failure) I50.9 Heart failure chronicity: acute on chronic Heart failure type: unspecified Elevated troponin I level R79.89 Respiratory failure with hypoxia J96.21 Chronicity: acute on chronic Acute hypoxemic respiratory failure J96.01 Chronic kidney disease, stage 3 (moderate) N18.3 Elevated troponin I level R79.89 Ischemic cardiomyopathy I25.5 Acute on chronic heart failure with reduced ejection fraction and diastolic dysfunction I50.43 Hypoxia R09.02 Pulmonary edema J81.0 Chronicity: acute Left bundle branch block I44.7 Aortic regurgitation I35.1 Cardiac valve disease etiology: nonrheumatic Cardiomyopathy I25.5 Cardiomyopathy type: ischemic Time Spent (min) 50 (1) Respiratory failure with hypoxia Chronicity: acute on chronic Qualified Code(s): J96.21 - Acute and chronic respiratory failure with hypoxia (2) CHF (congestive heart failure) Heart failure chronicity: acute on chronic Heart failure type: unspecified Qualified Code(s): I50.9 - Heart failure, unspecified (3) Aortic regurgitation Cardiac valve disease etiology: nonrheumatic Qualified Code(s): I35.1 - Nonrheumatic aortic (valve) insufficiency (4) Pulmonary edema Chronicity: acute Qualified Code(s): J81.0 - Acute pulmonary edema (5) Cardiomyopathy Cardiomyopathy type: ischemic Qualified Code(s): I25.5 - Ischemic cardiomyopathy
[2020-02-25 05:28] LABS: BUN Creatinine Ratio 16.4 (10-20); C Reactive Protein 0.3 mg/dl (0-0.29); Calcium 8.4 mg/dl (8.5-10.1); Est GFR (Non-African American) 25.9; Magnesium 2.2 mg/dl (1.8-2.4); Phosphorus 7.1 mg/dl (2.5-4.9); Potassium 4.1 mmol/L (3.5-5.1); Troponin I 0.598 ng/ml (0-0.045)
[2020-02-25] MEDS: HEPARIN SOD 5,000 UNIT/0.5 ML VIAL SQ SCH ×2 (07:51→16:04)
[2020-02-25] MEDS ORDERED: PANTOprazole 40 MG TAB PO SCH (08:00)
[2020-02-25] MEDS ORDERED: FAMOTIDINE 20 MG TAB PO SCH (08:00)
--- NOTE | 2020-02-25 08:00 | XRay Report ---
XR chest 1V portable CLINICAL HISTORY: 60 years-old Male presenting with SEPSIS. TECHNIQUE: Portable supine AP view of the chest was obtained. COMPARISON: 02/18/2020. FINDINGS: The patient is now intubated with the endotracheal tube terminating midthoracic trachea approximately 5 cm from the dorina. Atherosclerosis of the aortic arch. Cardiac silhouette mildly enlarged. Lungs and pleural spaces clear. Interval decrease in prior interstitial opacities. There is still moderate interstitial prominence with bronchial wall thickening and central and basilar predominant added dens ity, right greater than left. Pleural effusions have resolved. No pneumothorax. Multiple resolution c lips project in the region of the gastric lumen. IMPRESSION: 1. Slight interval decrease in pulmonary edema and resolved bilateral pleural effusions. A significa nt degree of edema persists. Atypical infection is considered less likely. 2. Underlying chronic lung disease suspected. 3. Appropriately positioned endotracheal tube. ACT 112: Negative or not required by law. Electronically signed by: Toan Segovia M.D. 02/25/2020 7:58 AM
[2020-02-25 10:11] LABS: iSTAT Arterial Blood Gas pH 7.13 (7.35-7.45); iSTAT Hematocrit 38 % (42-52); iSTAT Hemoglobin 12.9 g/dl (14.0-18.0); iSTAT Potassium 3.9 mmol/L (3.3-5.0); iSTAT Sodium 135 mmol/L (135-144)
[2020-02-25 10:12] LABS: iSTAT Arterial Blood Gas HCO3 28 meg/L (19-24); iSTAT Arterial Blood Gas pCO2 83 mmHg (35-46); iSTAT Arterial Blood Gas pO2 98 mmHg (80-95); iSTAT Carbon Dioxide 30 mmol/L (24-31)
[2020-02-25 10:13] LABS: iSTAT Sample Type Arterial
[2020-02-25 11:00] LABS: BUN Creatinine Ratio 17.9 (10-20); Calcium 8.7 mg/dl (8.5-10.1); Creatinine Clr Calc Pharmacy 27.2 ml/min; Est GFR (African American) 30.3; Est GFR (Non-African American) 26.1; Potassium 3.9 mmol/L (3.5-5.1)
[2020-02-25] MEDS: carvediloL 6.25 MG TAB PO SCH ×2 (11:14→20:15)
[2020-02-25] MEDS: CLOPIDOGREL BISULFATE 75 MG TAB PO SCH (11:14)
[2020-02-25] MEDS: ASPIRIN 81 MG ECTAB PO SCH (11:14)
[2020-02-25] MEDS: AMLODIPINE BESYLATE 5 MG TAB PO SCH (11:14)
--- NOTE | 2020-02-25 12:10 | Electrocardiogram Report ---
Test Reason : Blood Pressure : / mmHG Vent. Rate : 109 BPM Atrial Rate : 109 BPM P-R Int : 138 ms QRS Dur : 148 ms QT Int : 368 ms P-R-T Axes : 070 -10 106 degrees QTc Int : 495 ms Sinus tachycardia Possible Left atrial enlargement Left bundle branch block Abnormal ECG When compared with ECG of 17-FEB-2020 12:02, No significant change was found Confirmed by David Doherty ([id number]) on 02/25/2020 12:10:12 PM Referred By: REFERRED SELF Confirmed By:Ankit Doherty
[2020-02-25] MEDS ORDERED: ROCURONIUM BROMIDE 10 MG/ML 10 ML VIAL IV ONE (13:21)
[2020-02-25] MEDS: ATORVASTATIN 40 MG TAB PO SCH (20:15)
[2020-02-26] MEDS: HEPARIN SOD 5,000 UNIT/0.5 ML VIAL SQ SCH ×3 (02:11→17:43)
[2020-02-26 04:23] LABS: Basophils # (auto) 0.01 K/uL (0-0.2); Basophils % (auto) 0.1 %; Eosinophils # (auto) 0.23 K/uL (0-0.5); Eosinophils % (auto) 2.5 %; Hematocrit (blood only) 30.1 % (42-52); Hemoglobin 9.8 g/dL (14.0-18.0); Immature Granulocytes # (auto) 0.03 K/uL (0.00-0.02); Immature Granulocytes % (auto) 0.3 %; Mean Corpuscular Hemoglobin 30.3 pg (25-34); Mean Corpuscular Hgb Conc 32.6 g/dL (32-36); Mean Corpuscular Volume 93.2 fL (80-100); Mean Platelet Volume 9.9 fL (7.4-10.4); Monocytes # (auto) 1.13 K/uL (0.11-0.59); Monocytes % (auto) 12.1 %; Neutrophils # (auto) 6.45 K/uL (1.4-6.5); Platelet Count 272 K/uL (130-400); RDW Coefficient of Variation 15.1 % (11.5-14.5); RDW Standard Deviation 51.7 fL (36.4-46.3); Red Blood Count 3.23 M/uL (4.7-6.1); White Blood Count 9.35 K/uL (4.8-10.8)
[2020-02-26 04:39] LABS: BUN Creatinine Ratio 20.2 (10-20); Calcium 8.2 mg/dl (8.5-10.1); Creatinine Clr Calc Pharmacy 25.9 ml/min; Est GFR (African American) 28.5; Est GFR (Non-African American) 24.6; Magnesium 2.2 mg/dl (1.8-2.4); Potassium 3.7 mmol/L (3.5-5.1)
[2020-02-26 04:41] LABS: Phosphorus 3.7 mg/dl (2.5-4.9)
[2020-02-26] MEDS ORDERED: CEFEPIME 2,000 MG in SYRINGE 7.5 ML IV SCH (06:00)
--- NOTE | 2020-02-26 07:07 | XRay Report ---
XR chest 1V portable CLINICAL HISTORY: f/u dyspnea COMPARISON STUDY: 02/25/2020 FINDINGS: Interval extubation. Improved appearance to the of the pulmonary vasculature considered dim inished. Moderate residual bronchovascular congestion. Diaphragms are smooth. Trace pleural effusion right laureano g base. IMPRESSION: 1. Improved exam with a decrease in components of pulmonary edema and/or congestive failure. 2. Interval extubation. ACT 112: Negative or not required by law. The above report was generated using voice recognition software. It may contain grammatical, syntax or spelling errors. Electronically signed by: Erlin Navarro M.D. 02/26/2020 7:05 AM
[2020-02-26] MEDS: carvediloL 6.25 MG TAB PO SCH ×2 (08:36→21:37)
[2020-02-26] MEDS: ASPIRIN 81 MG ECTAB PO SCH (08:37)
[2020-02-26] MEDS: PANTOprazole 40 MG TAB PO SCH (08:37)
[2020-02-26] MEDS: AMLODIPINE BESYLATE 5 MG TAB PO SCH (08:37)
[2020-02-26] MEDS: CLOPIDOGREL BISULFATE 75 MG TAB PO SCH (08:38)
[2020-02-26] MEDS ORDERED: PANTOprazole 40 MG TAB PO SCH (09:00)
--- NOTE | 2020-02-26 11:06 | XRay Report ---
XR chest 1V portable CLINICAL HISTORY: hypoxia dyspnea COMPARISON STUDY: 02/26/2020 6:47 AM FINDINGS: No significant change compared to the prior study. Mild prominence of the pulmonary vascula ture. Diaphragms are smooth. There is slight blunting right lateral costophrenic angle. IMPRESSION: Pulmonary vascular congestion. No change from the prior study. ACT 112: Negative or not required by law. The above report was generated using voice recognition software. It may contain grammatical, syntax or spelling errors. Electronically signed by: Erlin Navarro M.D. 02/26/2020 11:05 AM
--- NOTE | 2020-02-26 11:48 | XCELERA ---
[id number] \\[email or web address]\PDF_[id number]}___[id number]
[2020-02-26 12:06] LABS: Adenovirus PCR Not Detected (NotDetected); Bordetella parapertussis PCR Not Detected (NotDetected); Bordetella pertussis PCR Not Detected (NotDetected); Chlamydia pneumoniae PCR Not Detected (NotDetected); Coronavirus 229E PCR Not Detected (NotDetected); Coronavirus HKU1 PCR Not Detected (NotDetected); Coronavirus NL63 PCR Not Detected (NotDetected); Coronavirus OC43PCR Not Detected (NotDetected); Human Metapneumovirus PCR Not Detected (NotDetected); Influenza A PCR Not Detected (NotDetected); Influenza B PCR Not Detected (NotDetected); Mycoplasma pneumoniae PCR Not Detected (NotDetected); Parainfluenza Virus 1 PCR Not Detected (NotDetected); Parainfluenza Virus 2 PCR Not Detected (NotDetected); Parainfluenza Virus 3 PCR Not Detected (NotDetected); Parainfluenza Virus 4 PCR Not Detected (NotDetected); Respiratory Syncytial VirusPCR Not Detected (NotDetected); Rhinovirus/Enterovirus PCR Not Detected (NotDetected)
[2020-02-26 13:34] LABS: iSTAT Arterial Blood Gas pH 7.29 (7.35-7.45); iSTAT Hematocrit 39 % (42-52); iSTAT Hemoglobin 13.3 g/dl (14.0-18.0); iSTAT Potassium 4.2 mmol/L (3.3-5.0); iSTAT Sodium 134 mmol/L (135-144)
[2020-02-26 13:35] LABS: iSTAT Art Bld Gas pCO2 Correct 55 mmHg (35-46); iSTAT Art Bld Gas pH Corrected 7.289 (7.35-7.45); iSTAT Arterial Blood Gas HCO3 26 meg/L (19-24); iSTAT Arterial Blood Gas pCO2 55 mmHg (35-46); iSTAT Arterial Blood Gas pO2 70 mmHg (80-95); iSTAT Arterial Blood Gas pO2 C 70; iSTAT Carbon Dioxide 28 mmol/L (24-31); iSTAT FiO2 40 %
[2020-02-26 13:36] LABS: iSTAT Allen Test Acceptable; iSTAT Sample Type Arterial; iSTAT Site L Radial
[2020-02-26 13:37] LABS: iSTAT SpO2 95
[2020-02-26 13:42] LABS: iSTAT Arterial Blood Gas HCO3 26 meg/L (19-24); iSTAT Arterial Blood Gas pCO2 46 mmHg (35-46); iSTAT Arterial Blood Gas pH 7.37 (7.35-7.45); iSTAT Arterial Blood Gas pO2 65 mmHg (80-95); iSTAT Carbon Dioxide 28 mmol/L (24-31)
[2020-02-26 13:43] LABS: iSTAT Sample Type Arterial
[2020-02-26] MEDS: ATORVASTATIN 40 MG TAB PO SCH (21:37)
--- NOTE | 2020-02-26 22:50 | Hospitalist Progress Note ---
Date of Service February 26, 2020 Assessment & Plan (1) Acute hypoxemic respiratory failure: Keron Fall is a 60-year-old male with a past medical history of an STEMI and CAD status post PCI with MARY to LAD x3 in 12/04/2019 with residual CHF and reduced ejection fraction, CKD 3, hypertension, hyperlipidemia, COPD, and PVD who presented to the emergency department by ambulance after they were reportedly called for Mr. weber having shortness of breath. On arrival to the emergency department patient was unresponsive and did not respond to sternal rub by the emergency department physician and required intubation. Acute hypoxic respiratory failure Likely multifactorial from COPD exacerbation and possible CHF component. Per family collateral patient without recent travel, COVID exposure, fever, cough, or new respiratory symptoms in the preceding days but notes that he lives alone. Patient has a history of heart failure with reduced ejection fraction and prior decompensations due to dietary indiscretion, chest x-ray with some diffuse congestion but no ghislaine effusion or fluid overload. Legs without pitting edema Intubated for respiratory support, extubated on same 02/25 stopped antibiotics. -will hold lasix today. will check BNP and chest x ray. Heart failure with reduced ejection fraction, CAD with recent 3X MARY to LAD in November 2019 Continue prior to admission amlodipine, carvedilol via OG once placed Continue ASA/Plaavix at this time Troponin trending down. EKG without acute change proBNP is elevated, patient is improving. Will hold lasix today. Leukocytosis stopped antibiotics. -likely reactive. Hypertension Antihypertensives as above COPD Pending PFTs as outpatient Peripheral vascular disease History of right common iliac to right femoral bypass in 1999, aortobifemoral bypass 06/2004 No signs of lower extremity ischemia on admission DVT prophylaxis: Heparin 5000 every 8 hours, pending evaluation of troponins and cardiac function as above CODE STATUS: Full code per history, unable to verify with patient. Pending collateral from family (2) Chronic kidney disease, stage 3 (moderate): CKD appears to be his new baseline. May consider renal consult. (3) Congestive heart disease: (4) Ischemic cardiomyopathy: (5) Respiratory acidosis: (6) CAD (coronary artery disease): (7) Hypertension: (8) Hyperlipidemia: (9) Peripheral vascular disease: (10) COPD (chronic obstructive pulmonary disease): Admission and Anticipated Discharge Date Admission Date: February 25, 2020 Subjective Patient is a 60 yo male who reports feeling better today. He is not quite back to his baseline. He reports he has questions regarding his inhaler. He feels that he did not improved with it while discharge and was wheezing. He does report that his breathing has improved. Review of Systems Review of Systems: All systems reviewed & are unremarkable except as noted in HPI & below Physical Exam Constitutional: WD/WN, vitals as above well developed Neck: trachea midline, no thyromegaly Respiratory: normal respiratory effort, lungs clear to auscultation (except for crackles in lower lobes) Cardiovascular: RRR, no murmur, no edema Gastrointestinal (Abdomen): normal bowel sounds, soft, nontender, no hepatosplenomegaly Skin: no rashes, warm and dry Neurologic: PERRL, EOMI, accommodation nl, no face palsy, no dysarthria Psychiatric: A+Ox3, euthymic affect Results & Data Results & Data ([facility]) Vital Signs (Past 12 Hours) Vital Signs Temp Pulse Resp BP Pulse Ox 02/26/20 16:41 66 02/26/20 16:00 19 02/26/20 14:12 66 20 134/61 99 02/26/20 14:00 75 23 02/26/20 12:00 36.7 C 68 23 98 02/26/20 11:09 72 20 117/85 PG Care Time/CCT Total # of Minutes Spent Total Time Spent with Patient: Total time spent is greater than 50% in coordination of care (as documented) at patient's floor/unit and/or counseling patient: Coding Level of Care Code 75736 Subseq Hosp Care Lvl 3 Diagnoses Acute hypoxemic respiratory failure J96.01 Chronic kidney disease, stage 3 (moderate) N18.3 Congestive heart disease I50.9 Ischemic cardiomyopathy I25.5 Respiratory acidosis E87.2 CAD (coronary artery disease) I25.10 Associated angina: without angina Coronary Disease-Associated Artery/Lesion type: [place] artery [place] vs. transplanted heart: [place] heart Hypertension I10 Hyperlipidemia E78.5 Peripheral vascular disease I73.9 COPD (chronic obstructive pulmonary disease) J44.9 Time Spent (min) 40 (1) CAD (coronary artery disease) Associated angina: without angina Coronary Disease-Associated Artery/Lesion type: [place] artery [place] vs. transplanted heart: [place] heart Qualified Code(s): I25.10 - Atherosclerotic heart disease of [place] coronary artery without angina pectoris
[2020-02-27] MEDS: HEPARIN SOD 5,000 UNIT/0.5 ML VIAL SQ SCH ×3 (00:12→16:00)
[2020-02-27 04:31] LABS: Basophils # (auto) 0.04 K/uL (0-0.2); Basophils % (auto) 0.4 %; Eosinophils # (auto) 0.72 K/uL (0-0.5); Eosinophils % (auto) 8.1 %; Hematocrit (blood only) 31.7 % (42-52); Hemoglobin 10.2 g/dL (14.0-18.0); Immature Granulocytes # (auto) 0.02 K/uL (0.00-0.02); Immature Granulocytes % (auto) 0.2 %; Lymphocytes # (auto) 3.92 K/uL (1.2-3.4); Mean Corpuscular Hemoglobin 30.1 pg (25-34); Mean Corpuscular Hgb Conc 32.2 g/dL (32-36); Mean Corpuscular Volume 93.5 fL (80-100); Mean Platelet Volume 9.6 fL (7.4-10.4); Monocytes # (auto) 0.87 K/uL (0.11-0.59); Monocytes % (auto) 9.8 %; Neutrophils # (auto) 3.34 K/uL (1.4-6.5); Neutrophils % (auto) 37.5 %; Platelet Count 252 K/uL (130-400); RDW Coefficient of Variation 14.9 % (11.5-14.5); Red Blood Count 3.39 M/uL (4.7-6.1); White Blood Count 8.91 K/uL (4.8-10.8)
[2020-02-27 04:51] LABS: BUN Creatinine Ratio 19.9 (10-20); Calcium 8.2 mg/dl (8.5-10.1); Creatinine Clr Calc Pharmacy 26.8 ml/min; Est GFR (African American) 29.7; Est GFR (Non-African American) 25.7; Magnesium 2.3 mg/dl (1.8-2.4); Potassium 3.6 mmol/L (3.5-5.1)
[2020-02-27] MEDS: PANTOprazole 40 MG TAB PO SCH (07:58)
[2020-02-27] MEDS: AMLODIPINE BESYLATE 5 MG TAB PO SCH (07:58)
[2020-02-27] MEDS: CLOPIDOGREL BISULFATE 75 MG TAB PO SCH (07:58)
[2020-02-27] MEDS: ASPIRIN 81 MG ECTAB PO SCH (07:58)
[2020-02-27] MEDS: carvediloL 6.25 MG TAB PO SCH ×2 (07:59→19:37)
--- NOTE | 2020-02-27 10:27 | Cardiology Consultation ---
Date of Consultation February 27, 2020 Assessment & Plan (1) Acute on chronic heart failure with reduced ejection fraction and diastolic dysfunction: (2) Left bundle branch block: Per review of the patient's record, he has a longstanding history of coronary heart disease. I found an outpatient note dating back to 2003 that describes him having coronary heart disease at that time with a chronic right coronary artery occlusion and mild left ventricular systolic dysfunction with ejection fr action in the mid 40s at that time. There is a lapse in EKG data from up until his recent presentation on 11/03/2019 when he presented with respiratory failure, development of a new or at least newly recognized left bundle branch block, and myocardial infarction. His presenting creatinine at the time of the encounter on 11/03/2019 was 2.26. He subsequently underwent cardiac catheter[place] [facility] [place] with a total of 3 drug- eluting stents in the LAD. Nonobstructive circumflex obtuse marginal disease was noted, and the chronic right coronary artery occlusion was once again documented. Since his myocardial infarction on 11/03/2019, I count at least 4 admissions for decompensated heart failure in the meantime. He does have a history of dietary nonadherence. Diuretic dose however has been limited by his baseline stage III-IV CKD with most recent creatinine of 2.57 mg/d, most recent calculated GFR 25.7 mL/min/m, consistent with stage IV CKD. Ejection fraction as assessed at the time of his repeat echocardiogram on 02/25/2020 was in the range of 35 to 40%. I reviewed the images independently. There is akinesis of the inferior wall consistent with the patient's known history of chronic right coronary artery territory infarction, and septal dyskinesis noted suggestive of left ventricular dyssynchrony in the setting of left bundle branch block. Mild aortic valve regurgitation was present. His recent diuretic dose has been 40 mg daily with 60 mg on Tuesdays and . DIAGNOSTICS: Recommend repeat focused echocardiogram now that he is off the ventilator, for reassessment of his left ventricular systolic function. I think we will get better images at this point, as his apex was foreshortened. THERAPEUTICS: I am going to discontinue his amlodipine, as given his left ventricular systolic dysfunction and recurrent heart failure admissions, would like to avoid calcium channel feli therapy. His blood pressure does not appear to be chronically elevated, and perhaps this would allow us to titrate nitrates and hydralazine for afterload reduction, and may provide more room for diuretic therapy. He is not a candidate for spironolactone, ASHLIE inhibitor or ARB due to his degree of renal insufficiency. Note received a candidate for spironolactone. Given suggestion of the left ventricular dyssynchrony on echocardiogram, left bundle branch block with QRS duration with 144 ms, perhaps he would be a candidate for implantation of a biventricular pacemaker for cardiac resynchronization therapy depending on the results of the repeat LVEF assesment. At some point in the near future, may need to employ the help of nephrology given his degree of renal insufficiency. I am going to place him back on his furosemide 40 mg for tomorrow. His coronary heart disease, continue chronic dual antiplatelet therapy with aspirin and clopidogrel. Continue current dose of carvedilol 6.25 mg twice daily. Continue atorvastatin 80 mg daily. Continue subcutaneous heparin for DVT prophylaxis. History of Present Illness Attending Physician: Maik Spencer History of Present Illness Keron Fall is a 60 year old male seen in cardiology consultation per the request of Dr Spencer for evaluation and treatment of congestive heart failure. The patient's most recent outpatient cardiology visit was on 02/03/20 with Erlin Duncan PA-C of our practice. Patient has multiple recent admissions to [facility] including late , November,, December 2019, , and most recently he was readmitted presenting 2 days ago on 02/25/2020. When he was admitted earlier this month, it was in the setting of orthopnea, and he was planned to have endoscopy studies for work-up of iron deficiency anemia. EGD performed 02/19/2020 revealed a single medium angiectasia for which vaporization for hemostasis utilizing argon plasma was performed. 3 hemostatic clips were successfully placed. Several polyps were also removed at time of colonoscopy the same day. He was readmitted on 02/25/2020 with complaints of shortness of breath and cough. The emergency department note describes that the patient was unresponsive after arriving to the emergency room. Arterial blood gas revealed respiratory acidosis with pH of 7.13, PCO2 of 83, PO2 98, and bicarb level of 28 on 02/25/2020 1:25 AM. The patient underwent emergent endotracheal intubation. Coronavirus serologies were negative. The patient was admitted to the intensive care unit and subsequently extubated, having received treatment for both CHF decompensation and acute COPD exacerbation. He is currently comfortable, sitting supine. He is in ICU room 107 as a telemetry overflow at present pending transfer to the PCU. He denies any current chest discomfort or shortness of breath. Past Medical History: His cardiac history dates back to November 02, 2019 when he presented to [facility] with chest discomfort and oxygen saturations reportedly in the 60s which the patient had initially been placed on BiPAP and ultimately was intubated for airway protection. He was found to have pulmonary edema and a left bundle branch block on EKG of unknown duration. He was transferred to [facility] [place] where he was hospitalized from 11/03/2019 until 11/07/2019 with a diagnosis of flash pulmonary edema in the setting of an acute coronary syndrome, acute myocardial infarction. On 11/06/2019 he underwent coronary intervention including PCI of the proximal LAD with a single drug-eluting stent and PCI of the mid LAD with 2 drug-eluting stents. The second obtuse marginal branch was noted to have a 40% stenosis. The right coronary artery was noted to be chronically occluded. Resting echocardiography performed 11/04/2019 revealed moderate left ventricular systolic dysfunction, ejection fraction 35%. 1.ASCVD, ischemic cardiomyopathy, ejection fraction 35-40% 1.Chronic RCA occlusion 2.Status post PCI to the proximal and mid LAD with 3 drug-eluting stents November 06, 2019. Residual 40% 2nd obtuse marginal stenosis. 3.[place] heart [employer] Class III dyspnea 4.Left bundle branch block 2.Valvular heart disease, mixed aortic valve disease, mitral regurgitation 3.Chronic hyponatremia 4.Emphysema 5.Chronic nocturnal hypoxemia, treated with supplemental oxygen (initiated January 30, 2020) 6.Peripheral vascular disease with bilateral carotid bruits bilateral SFA occlusions, history of presumed right fem-pop bypass, right 5th toe amputation, aortobifemoral bypass in 2004, prior right iliofemoral bypass. 7.Right renal artery stenosis 8.SMA stenosis 9.Stage 3 to 4 chronic kidney disease 10Anemia 11.Hypertension 12.Dyslipidemia 13.Tobacco abuse 14.Impotence 15.Osteoarthritis Allergies Allergy/AdvReac Type Severity Reaction Status Date / Time No Known Allergies Allergy Unknown Verified 02/25/20 00:53 Home Medications Home Medications Medication Instructions Recorded Confirmed Type aspirin 81 mg PO QAM 11/03/19 02/25/20 History amlodipine 10 mg PO QAM 11/30/19 02/25/20 History atorvastatin 80 mg PO HS 11/30/19 02/25/20 History carvedilol 6.25 mg PO BID 11/30/19 02/25/20 History clopidogrel [Plavix] 75 mg PO QAM 11/30/19 02/25/20 History pantoprazole 40 mg PO QAM 11/30/19 02/25/20 History cholecalciferol (vitamin D3) 2,000 unit PO QAM 12/24/19 02/25/20 History ferrous sulfate [iron] 325 mg PO QAM 02/16/20 02/25/20 History furosemide 20 mg PO TUTH 02/16/20 02/25/20 History furosemide [Lasix] 40 mg PO QAM 02/16/20 02/25/20 History hydralazine 12.5 mg PO BID 02/16/20 02/25/20 History Spacer for Inhaler #1 ea 02/21/20 02/25/20 Rx albuterol sulfate 1 puffs INH Q6H PRN #18 gm 02/21/20 02/25/20 Rx isosorbide mononitrate 30 mg PO BID #60 tab 02/21/20 02/25/20 Rx tiotropium bromide [Spiriva with 1 cap INH DAILY #30 puffs 02/21/20 02/25/20 Rx HandiHaler] Patient History Medical History Anemia CAD (coronary artery disease) MIXED AORTIC VALVE DISORDER; MITRAL REGURGITATION Chronic congestive heart failure 02/16/2020 - CURRENTLY DENIES ANY INCREASED SHORTNESS OF BREATH FROM BASELINE. CHEST PAIN HAS SUBSIDED SINCE STARTING HYDRALAZINE Chronic kidney disease STAGE 3-4 COPD (chronic obstructive pulmonary disease) Heme positive stool REASON FOR COLONOSCOPY/EGD Hyperlipidemia Hypertension Hyponatremia CHRONIC Iron deficiency anemia REASON FOR COLONOSCOPY/EGD Ischemic cardiomyopathy EJECTION FRACTION 35-40% Left bundle branch block (Acute) Nocturnal hypoxemia due to emphysema 3 L OF O2 AT HS. DOES NOT NEED ANY OXYGEN DURING THE DAY. NSTEMI (non-ST elevated myocardial infarction) Osteoarthritis Peripheral vascular disease WITH BL CAROTID BRUITS BILATERL SFA OCCLUSIONS Surgical History Amputation of fifth toe of right foot H/O vascular surgery RIGHT FEM-POP BYBASS, AORTOBIFEMORAL BYPASS IN 2004, PRIOR RIGHT ILIOFEMORAL BYPASS (PATIENT STATE HE HAS HAD 4 VASCULAR SURGERIES) History of cardiac cath S/P PCI TO THE PROCIMAL AND MID LAD WITH 3 DRUG-ELUTING STENTS NOVEMBER 06, 2019. RESIDUAL 40% 2ND OBTUSE MARGINAL STENOSIS. (PATIENT INSTRUCTED TO STAY ON BOTH ASPIRIN AND PLAVIX FOR HIS COLONOSCOPY AND EGD PROCEDURE ON 02/17/2020.) Social History Preferred Language: Malagasy Communication Ability: Effective Test Engine Evaluator Required: No Beliefs That Will Affect Care: None marital status: Single Current Living Situation: Alone Current Living Situation Comment: unknown pt intubated and sedated. no family present Feels Safe at Home: Yes Smoking Status: Former smoker Tobacco Type: cigarettes ; Cigarettes Per Day: QUIT 11/02/2019 ; Second Hand Exposure: No ; Hx Alcohol Use: Yes Alcohol type: beer Hx Substance Use: No Review of Systems Review of Systems: All systems reviewed & are unremarkable except as noted in HPI & below Physical Exam Physical Exam: Temp Pulse Resp BP Pulse Ox 36.7 C 65 21 120/80 100 02/27/20 04:00 02/27/20 10:00 02/27/20 10:00 02/27/20 09:13 02/27/20 10:00 Constitutional: WD/WN, vitals as above Respiratory: normal respiratory effort, lungs clear to auscultation Cardiovascular: RRR, no murmur, no edema Gastrointestinal (Abdomen): normal bowel sounds, soft, nontender, no hepatosplenomegaly Neurologic: PERRL, EOMI, accommodation nl, no face palsy, no dysarthria Results & Data ([facility]) Vital Signs (Past 12 Hours) Vital Signs Temp Pulse Pulse Resp BP BP Pulse Ox 02/27/20 10:00 65 21 100 02/27/20 09:13 66 23 120/80 96 02/27/20 09:00 62 23 98 02/27/20 08:13 61 21 137/71 100 02/27/20 07:13 57 L 21 133/62 98 02/27/20 04:00 36.7 C 69 16 114/52 L 100 02/27/20 01:00 02/27/20 00:00 36.8 C 66 70 16 135/69 98 Pulse Ox 02/27/20 10:00 02/27/20 09:13 02/27/20 09:00 02/27/20 08:13 02/27/20 07:13 02/27/20 04:00 02/27/20 01:00 98 02/27/20 00:00 Laboratory Results CBC 02/27/20 Range/Units 04:12 WBC 8.91 (4.8-10.8) K/uL RBC 3.39 L (4.7-6.1) M/uL Hgb 10.2 L (14.0-18.0) g/dL Hct 31.7 L (42-52) % Plt Count 252 (130-400) K/uL Neut # (Auto) 3.34 (1.4-6.5) K/uL Lymph # (Auto) 3.92 H (1.2-3.4) K/uL [place] # (Auto) 0.87 H (0.11-0.59) K/uL Eos # (Auto) 0.72 H (0-0.5) K/uL Baso # (Auto) 0.04 (0-0.2) K/uL Comprehensive Metabolic Panel 02/27/20 Range/Units 04:12 Sodium 136 (136-145) mmol/L Potassium 3.6 (3.5-5.1) mmol/L Chloride 106 (98-107) mmol/L Carbon Dioxide 25 (21-32) mmol/L BUN 51 H (7-18) mg/dl Creatinine 2.57 H (0.6-1.4) mg/dl Glucose 96 (70-99) mg/dl Calcium 8.2 L (8.5-10.1) mg/dl Intake and Output 02/26/20 02/27/20 02/27/20 22:59 06:59 14:59 Intake Total 200 / 1520 Output Total 2574 Balance 0 / -1055 -1650 / -1055 Intake: Oral 200 / 1520 Output: Urine Amount (Catheter) 1849 Ding/Indwelling 1849 # Bowel Movements 0 / 0 Other: Weight 63.2 kg Diagnostic Findings EKG performed 02/25/2020 revealed sinus tachycardia at 109 bpm, left bundle branch block, QRS duration 148 ms Repeat EKG performed 02/27/2020 at 10:49 AM revealed sinus bradycardia at 52 bpm, with left bundle branch block, QRS duration 144 ms.
[2020-02-27] MEDS ORDERED: TORSEMIDE 10 MG TAB PO STA (12:04)
--- NOTE | 2020-02-27 12:17 | Nephrology Consultation ---
Date of Consultation February 27, 2020 Assessment & Plan (1) Respiratory failure with hypoxia: 60 year old male with stage IV CKD, coronary artery disease, congestive heart failure, admitted to the hospital with respiratory failure possibly secondary to volume overload. Initially intubated, extubated within 24 hours and now doing well with nasal cannula oxygen. Diuretics has been on hold since admission, has been voiding normally without diuretics and net negative. Chronic kidney disease most likely secondary to renovascular disease as well as malfunctioning right kidney with chronic severe hydronephrosis with ureteral stricture. Although no records available prior to October 2019, history from prior patient indicates having advanced CKD for years. Although currently patient voiding with net negative without diuretics however considering repeated hospital admission for volume overload, with underlying congestive heart failure with systolic and diastolic dysfunction, he will need diuretics to maintain volume status. --resume Lasix at 40 mg p.o. daily, monitor intake and output closely, aim to keep in negative balance. His dry weight seems to be around 62 kg. Considering low GFR, he may need higher dose eventually to maintain euvolemia. --although there is no indication for dialysis at this time, considering underlying advanced CKD and low EF he has high risk for progressive worsening of renal function and needing dialysis in next few months or even sooner. Discus sed renal replacement therapy and different dialysis modality options with the patient. He seems to have good understanding. Will have 1 of our dialysis nurses to come and provide him with more education about different modalities of renal replacement therapy. He would be a good candidate for peritoneal dialysis. --will check iron study, B12, folate, PTH, phosphate --advise to avoid all NSAIDs --he has not been on any ASHLIE inhibitor or ARB, unclear why, Will hold off on that for now --left arm nephrology precaution --monitor renal function electrolyte daily Will follow Thank you for allowing me to participate in your patient's care. It was a pleasure to see Keron. (2) CHF (congestive heart failure): (3) Ischemic cardiomyopathy: (4) Peripheral vascular disease: (5) Chronic kidney disease, stage V: History of Present Illness Reason for Consultation: Stage IV CKD, volume overload, evaluation for possible need for dialysis in near future. Attending Physician: Maik Spencer History of Present Illness Keron Fall is a 60-year-old gentlemen with complex past medical history including stage 4 chronic kidney disease, hypertension, coronary artery disease, congestive heart failure requiring repeated hospital admission, admitted to the hospital with respiratory failure and volume overload. Nephrology consult was requested to evaluate for possible need for dialysis in near future to maintain the volume status. Electronic medical records including labs and imaging are reviewed in detail during patient's visit. Keron aggarwal presented to ER on 02/25/2020 with acute shortness of breath. On admission he was found to be volume overloaded. BNP was elevated and troponin was mildly elevated. COVID-19 was negative. Initially he was started on BiPAP however soon he was intubated in ER as he became less responsive. He was extubated at on 02/26/2020. Since then he has been otherwise doing well with 3 L oxygen via nasal cannula and maintaining oxygen saturation. 2D echo on 02/25/2020 showed EF 35-40%, concentric LVH and diastolic dysfunction. History of coronary artery disease, PTCA and stent in October 2019. He was just recently in hospital with similar symptom and was discharged on 02/21/2020. Prior to that he was on nasal cannula oxygen at night which was changed to O2 3 L via NC all the time. At home he has been continuing on Lasix 40 mg daily and additional 20 mg twice a week. He reports voiding normal at home. Denied any recent NSAID use. Since admission Lasix has been on hold. Creatinine has been staying around 2.5-2.7. Urinalysis with low grade proteinuria, no hematuria pyuria. Has history of stage IIIB/4 chronic kidney disease at least for last 5 years, baseline creatinine seems to be somewhere around 2-2.4, lately staying slightly higher. Renal ultrasound on 11/03/2019 showed right kidney 13.7 and left kidney 9.8 cm, has right kidney chronic moderate to severe hydronephrosis with ureteral stricture. He reports getting stent several times over last few years and eventually stent was taken out as there was no difference with or without stent. Nuclear renal scan in October 2019 showed right kidney mostly nonfunctional with less than 19% function and left kidney more than 81% function. He also reports being told to have right renal artery stenosis before however his blood pressure seems to be pretty well controlled. Denies any known family history of chronic kidney disease or end-stage renal disease. Long history of smoking, quit smoking in October 2019. 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 Lives alone, has grown-up daughter. Currently he denies any specific symptoms, no further episode of shortness of breath, no chest pain. Has been voiding, net negative. Allergies Allergy/AdvReac Type Severity Reaction Status Date / Time No Known Allergies Allergy Unknown Verified 02/25/20 00:53 Home Medications Home Medications Medication Instructions Recorded Confirmed Type aspirin 81 mg PO QAM 11/03/19 02/25/20 History amlodipine 10 mg PO QAM 11/30/19 02/25/20 History atorvastatin 80 mg PO HS 11/30/19 02/25/20 History carvedilol 6.25 mg PO BID 11/30/19 02/25/20 History clopidogrel [Plavix] 75 mg PO QAM 11/30/19 02/25/20 History pantoprazole 40 mg PO QAM 11/30/19 02/25/20 History cholecalciferol (vitamin D3) 2,000 unit PO QAM 12/24/19 02/25/20 History ferrous sulfate [iron] 325 mg PO QAM 02/16/20 02/25/20 History furosemide 20 mg PO TUTH 02/16/20 02/25/20 History furosemide [Lasix] 40 mg PO QAM 02/16/20 02/25/20 History hydralazine 12.5 mg PO BID 02/16/20 02/25/20 History Spacer for Inhaler #1 ea 02/21/20 02/25/20 Rx albuterol sulfate 1 puffs INH Q6H PRN #18 gm 02/21/20 02/25/20 Rx isosorbide mononitrate 30 mg PO BID #60 tab 02/21/20 02/25/20 Rx tiotropium bromide [Spiriva with 1 cap INH DAILY #30 puffs 02/21/20 02/25/20 Rx HandiHaler] Patient History Medical History Anemia CAD (coronary artery disease) MIXED AORTIC VALVE DISORDER; MITRAL REGURGITATION Chronic congestive heart failure 02/16/2020 - CURRENTLY DENIES ANY INCREASED SHORTNESS OF BREATH FROM BASELINE. CHEST PAIN HAS SUBSIDED SINCE STARTING HYDRALAZINE Chronic kidney disease STAGE 3-4 COPD (chronic obstructive pulmonary disease) Heme positive stool REASON FOR COLONOSCOPY/EGD Hyperlipidemia Hypertension Hyponatremia CHRONIC Iron deficiency anemia REASON FOR COLONOSCOPY/EGD Ischemic cardiomyopathy EJECTION FRACTION 35-40% Left bundle branch block (Acute) Nocturnal hypoxemia due to emphysema 3 L OF O2 AT HS. DOES NOT NEED ANY OXYGEN DURING THE DAY. 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 RESIDUAL 40% 2ND OBTUSE MARGINAL STENOSIS. (PATIENT INSTRUCTED TO STAY ON BOTH ASPIRIN AND PLAVIX FOR HIS COLONOSCOPY AND EGD PROCEDURE ON 02/17/2020.) Social History Preferred Language: Persian Communication Ability: Effective Bar Steward Required: No Beliefs That Will Affect Care: None marital status: Single Current Living Situation: Alone Current Living Situation Comment: unknown pt intubated and sedated. no family present Feels Safe at Home: Yes Smoking Status: Former smoker Tobacco Type: cigarettes ; Cigarettes Per Day: QUIT 11/02/2019 ; Second Hand Exposure: No ; Hx Alcohol Use: Yes Alcohol type: beer Hx Substance Use: No Review of Systems Review of Systems: All systems reviewed & are unremarkable except as noted in HPI & below Physical Exam Constitutional: WD/WN, vitals as above well developed and well nourished; no acute distress Eyes: PERRL, conjunctivae normal, anicteric sclerae ENMT: external ear and nose normal, oropharynx normal Ears: no hearing impairment Neck: trachea midline Respiratory: normal respiratory effort, lungs clear to auscultation no cough Auscultation: no crackles, no rales and no wheezes Cardiovascular: RRR, no murmur, no edema Gastrointestinal (Abdomen): normal bowel sounds, soft, nontender, no hepatosplenomegaly Percussion/Palpation: abdomen nontender, no guarding and abdomen not rigid Musculoskeletal: Extremities: extremities normal to inspection Gait: normal gait Skin: no rashes, warm and dry Neurologic: moves all extremities and awake Psychiatric: A+Ox3, euthymic affect Results & Data Vital Signs (Past 12 Hours) Vital Signs Temp Pulse Pulse Resp BP BP Pulse Ox 02/27/20 10:00 65 21 100 02/27/20 09:13 66 23 120/80 96 02/27/20 09:00 62 23 98 02/27/20 08:13 61 21 137/71 100 02/27/20 07:13 57 L 21 133/62 98 02/27/20 04:00 36.7 C 69 16 114/52 L 100 02/27/20 01:00 02/27/20 00:00 36.8 C 66 70 16 135/69 98 Pulse Ox 02/27/20 10:00 02/27/20 09:13 02/27/20 09:00 02/27/20 08:13 02/27/20 07:13 02/27/20 04:00 02/27/20 01:00 98 02/27/20 00:00 PG Care Time/CCT Total # of Minutes Spent Total Time Spent with Patient: Total time spent is greater than 50% in coordination of care (as documented) at patient's floor/unit and/or counseling patient: Coding Level of Care Code 93258 Inpt Consult Level 5 Diagnoses Respiratory failure with hypoxia J96.21 Chronicity: acute on chronic CHF (congestive heart failure) I50.9 Heart failure chronicity: acute on chronic Heart failure type: unspecified Ischemic cardiomyopathy I25.5 Peripheral vascular disease I73.9 Chronic kidney disease, stage V N18.5 (1) Respiratory failure with hypoxia Chronicity: acute on chronic Qualified Code(s): J96.21 - Acute and chronic respiratory failure with hypoxia (2) CHF (congestive heart failure) Heart failure chronicity: acute on chronic Heart failure type: unspecified Qualified Code(s): I50.9 - Heart failure, unspecified
--- NOTE | 2020-02-27 15:29 | Electrocardiogram Report ---
Test Reason : Blood Pressure : / mmHG Vent. Rate : 052 BPM Atrial Rate : 052 BPM P-R Int : 134 ms QRS Dur : 144 ms QT Int : 478 ms P-R-T Axes : 037 -44 100 degrees QTc Int : 444 ms Sinus bradycardia Left axis deviation Left bundle branch block Abnormal ECG When compared with ECG of 25-FEB-2020 00:43, Vent. rate has decreased BY 57 BPM QRS axis Shifted left T wave amplitude has decreased in Anterior leads Confirmed by David Doherty ([id number]) on 02/27/2020 3:29:00 PM Referred By: REFERRED SELF Confirmed By:Ankit Doherty
[2020-02-27] MEDS: ATORVASTATIN 40 MG TAB PO SCH (19:37)
--- NOTE | 2020-02-27 20:19 | XCELERA ---
[id number] \\[id number]
--- NOTE | 2020-02-27 21:23 | Hospitalist Progress Note ---
Date of Service February 27, 2020 Assessment & Plan (1) Acute hypoxemic respiratory failure: Keron Fall is a 60-year-old male with a past medical history of an STEMI and CAD status post PCI with MARY to LAD x3 in 12/04/2019 with residual CHF and reduced ejection fraction, CKD 3, hypertension, hyperlipidemia, COPD, and PVD who presented to the emergency department by ambulance after they were reportedly called for Mr. weber having shortness of breath. On arrival to the emergency department patient was unresponsive and did not respond to sternal rub by the emergency department physician and required intubation. Acute hypoxic respiratory failure Likely multifactorial from COPD exacerbation and possible CHF component. Per family collateral patient without recent travel, COVID exposure, fever, cough, or new respiratory symptoms in the preceding days but notes that he lives alone. Patient has a history of heart failure with reduced ejection fraction and prior decompensations due to dietary indiscretion, chest x-ray with some diffuse congestion but no ghislaine effusion or fluid overload. Legs without pitting edema Intubated for respiratory support, extubated on same 02/25 stopped antibiotics. -will consult nephro and cardio. -Concern over overdiuresing as patient's creatinine has been elevated. -may need dialysis in the near future as GFR and creatinine clearance is low. Heart failure with reduced ejection fraction, CAD with recent 3X MARY to LAD in November 2019 Continue prior to admission amlodipine, carvedilol via OG once placed Continue ASA/Plaavix at this time Troponin trending down. EKG without acute change proBNP is elevated, patient is improving. -Will hold lasix today. Leukocytosis stopped antibiotics. -likely reactive. Hypertension Antihypertensives as above COPD Pending PFTs as outpatient Peripheral vascular disease History of right common iliac to right femoral bypass in 1999, aortobifemoral bypass 06/2004 No signs of lower extremity ischemia on admission DVT prophylaxis: Heparin 5000 every 8 hours, pending evaluation of troponins and cardiac function as above CODE STATUS: Full code per history, unable to verify with patient. Pending collateral from family (2) Chronic kidney disease, stage 3 (moderate): CKD appears to be his new baseline. May consider renal consult. (3) Congestive heart disease: (4) Ischemic cardiomyopathy: (5) Respiratory acidosis: (6) CAD (coronary artery disease): (7) Hypertension: (8) Hyperlipidemia: (9) Peripheral vascular disease: (10) COPD (chronic obstructive pulmonary disease): Admission and Anticipated Discharge Date Admission Date: February 25, 2020 Subjective Patient reports breathing close to baseline. He continues to have a cough. Review of Systems Review of Systems: All systems reviewed & are unremarkable except as noted in HPI & below Physical Exam Constitutional: WD/WN, vitals as above well developed Neck: trachea midline, no thyromegaly Respiratory: normal respiratory effort, lungs clear to auscultation (except for crackles in lower lobes) Cardiovascular: RRR, no murmur, no edema Gastrointestinal (Abdomen): normal bowel sounds, soft, nontender, no hepatosplenomegaly Skin: no rashes, warm and dry Neurologic: PERRL, EOMI, accommodation nl, no face palsy, no dysarthria Psychiatric: A+Ox3, euthymic affect Results & Data Results & Data ([facility]) Vital Signs (Past 12 Hours) Vital Signs Temp Pulse Pulse Resp BP BP Pulse Ox 02/27/20 19:28 36.4 C L 61 18 113/66 99 02/27/20 15:37 36.3 C L 63 18 130/74 96 02/27/20 14:41 67 02/27/20 14:21 77 02/27/20 14:15 36.3 C L 65 20 145/70 H 98 02/27/20 13:13 64 22 136/66 02/27/20 12:13 88 25 H 127/61 97 02/27/20 11:13 58 L 18 125/58 L 100 02/27/20 10:14 62 18 133/77 96 02/27/20 10:00 65 21 100 PG Care Time/CCT Total # of Minutes Spent Total Time Spent with Patient: Total time spent is greater than 50% in coordina tion of care (as documented) at patient's floor/unit and/or counseling patient: Coding Level of Care Code 66764 Subseq Hosp Care Lvl 3 Diagnoses Acute hypoxemic respiratory failure J96.01 Chronic kidney disease, stage 3 (moderate) N18.3 Congestive heart disease I50.9 Ischemic cardiomyopathy I25.5 Respiratory acidosis E87.2 CAD (coronary artery disease) I25.10 Associated angina: without angina Coronary Disease-Associated Artery/Lesion type: [place] artery [place] vs. transplanted heart: [place] heart Hypertension I10 Hyperlipidemia E78.5 Peripheral vascular disease I73.9 COPD (chronic obstructive pulmonary disease) J44.9 Time Spent (min) 35 (1) CAD (coronary artery disease) Associated angina: without angina Coronary Disease-Associated Artery/Lesion type: [place] artery [place] vs. transplanted heart: [place]ock heart Qualified C ode(s): I25.10 - Atherosclerotic heart disease of [place] coronary artery without angina pectoris
[2020-02-28] MEDS: HEPARIN SOD 5,000 UNIT/0.5 ML VIAL SQ SCH ×4 (00:08→23:34)
[2020-02-28 01:55] LABS: BUN Creatinine Ratio 21.3 (10-20); Calcium 8.4 mg/dl (8.5-10.1); Creatinine Clr Calc Pharmacy 27.3 ml/min; Est GFR (African American) 30.6; Est GFR (Non-African American) 26.4; Potassium 3.5 mmol/L (3.5-5.1)
[2020-02-28 01:57] LABS: Phosphorus 3.7 mg/dl (2.5-4.9)
[2020-02-28] MEDS ORDERED: POTASSIUM CHLORIDE 20 MEQ TABCR PO ONE (02:26)
[2020-02-28 06:17] LABS: Hematocrit (blood only) 33.6 % (42-52); Hemoglobin 10.9 g/dL (14.0-18.0); Mean Corpuscular Hemoglobin 30.1 pg (25-34); Mean Corpuscular Hgb Conc 32.4 g/dL (32-36); Mean Corpuscular Volume 92.8 fL (80-100); Mean Platelet Volume 10.2 fL (7.4-10.4); Platelet Count 274 K/uL (130-400); RDW Coefficient of Variation 14.8 % (11.5-14.5); RDW Standard Deviation 50.9 fL (36.4-46.3); Red Blood Count 3.62 M/uL (4.7-6.1)
[2020-02-28 06:58] LABS: Albumin Globulin Ratio 0.8 (0.9-2); BUN Creatinine Ratio 21.6 (10-20); Calcium 8.6 mg/dl (8.5-10.1); Creatinine Clr Calc Pharmacy 27.9 ml/min; Est GFR (African American) 32.3; Est GFR (Non-African American) 27.9; Globulin 3.6 gm/dl (2.5-4.0); Potassium 4.2 mmol/L (3.5-5.1); Total Protein 6.6 gm/dl (6.4-8.2)
[2020-02-28 07:00] LABS: Bilirubin,Total 0.3 mg/dl (0.2-1); Ferritin 22.6 ng/ml (8-388)
[2020-02-28] MEDS: PANTOprazole 40 MG TAB PO SCH (07:38)
[2020-02-28] MEDS: carvediloL 6.25 MG TAB PO SCH ×2 (07:38→20:48)
[2020-02-28] MEDS: CLOPIDOGREL BISULFATE 75 MG TAB PO SCH (07:39)
[2020-02-28] MEDS: TORSEMIDE 10 MG TAB PO SCH (07:39)
[2020-02-28] MEDS: ASPIRIN 81 MG ECTAB PO SCH (07:39)
[2020-02-28 08:18] LABS: Folate (Folic Acid) 8.12 ng/ml (>5.38)
--- NOTE | 2020-02-28 10:22 | Nephrology Progress Note ---
Date of Service February 28, 2020 Assessment & Plan (1) Chronic kidney disease, stage V: Creatinine relatively stable at 2.4 mg/dL. Urine output acceptable. Responsive to torsemide yesterday. Volume status improving appropriately. Electrolytes within normal limits. Medications are appropriate for kidney function. No emergent indication for LIQUEFIER. Will continue to follow with daily labs. Please document I/O's and check weights daily. (2) Respiratory failure with hypoxia: Improving with treatment for acute on chronic combined diastolic/systolic CHF as well as COPD. (3) CHF (congestive heart failure): Management per cardiology. Tentative plan for biV pacer. Titration of medications including nitrates and hydralazine per cardiology. BP reasonably and Keron is tolerating current therapy well. Volume status appears to be improving appropriately. Would be reasonable to resume furosemide today. I would suggest possibly restarting 40 - 60 mg daily per home Rx. Alternative consideration would be to continue torsemide. I would favor that we continued to avoid spironolactone as well as ACEi/ARB for now due to renal insufficiency. (4) Anemia: Tsat 5 and ferritin 22. Hemoglobin stable at 10.9. YONNY therapy deferred due to Hgb >10 and low Tsat. Encourage iron supplementation. Venofer 200 mg daily started today. (5) Ischemic cardiomyopathy: (6) Peripheral vascular disease: Admission and Anticipated Discharge Date Admission Date: February 25, 2020 Subjective No acute events overnight. Keron was resting comfortably in a bedside chair this morning. He denied significant dyspnea. No fevers or chills. No chest pain. Some mild lightheadedness earlier in the morning has now resolved. Overall, he feels well. Appetite is good. He remains on 2L of O2 via NC. Good UOP in response to Torsemide 20 mg yesterday. Negative 2 L in ~24 hours. Weight 63-->61 kg. Review of Systems Review of Systems: All systems reviewed & are unremarkable except as noted in HPI & below Physical Exam Constitutional: well developed; no acute distress Eyes: + anicteric sclerae ENMT: Mouth: no oral mucosal abnormality and oral mucous membranes not dry Neck: normal visual inspection and trachea midline Respiratory: normal respiratory effort Auscultation: lungs clear to auscultation bilaterally Cardiovascular: Rate/Rhythm: + bradycardic Heart Sounds: normal S1 and normal S2 Vessels: + JVD Extremities: no edema Musculoskeletal: Extremities: no cyanosis and no clubbing Skin: normal turgor Neurologic: Motor/Sensory: no tremor and no asterixis Results & Data ([facility]) Vital Signs (Past 12 Hours) Vital Signs Temp Pulse Pulse Resp BP Pulse Ox 02/28/20 08:00 49 L 02/28/20 07:26 36.5 C 50 L 18 125/63 99 02/28/20 06:00 67 02/28/20 03:35 36.4 C L 53 L 18 137/65 98 02/27/20 23:31 36.7 C 65 18 132/70 100 Laboratory Results Laboratory Results - last 24 hr 02/28/20 02/28/20 02/28/20 01:21 05:51 05:51 WBC 8.60 RBC 3.62 L Hgb 10.9 L Hct 33.6 L MCV 92.8 MCH 30.1 MCHC 32.4 RDW Std Deviation 50.9 H RDW Coeff of Monika 14.8 H Plt Count 274 MPV 10.2 Sodium 136 136 Potassium 3.5 4.2 D Chloride 104 105 Carbon Dioxide 28 25 Anion Gap 4.0 6.0 BUN 53 H 52 H Creatinine 2.51 H 2.40 H Est Cr Clr Drug Dosing 27.3 27.9 Est GFR ( Amer) 30.6 32.3 Est GFR (Non-Af Amer) 26.4 27.9 BUN/Creatinine Ratio 21.3 H 21.6 H Glucose 93 98 Calcium 8.4 L 8.6 Phosphorus 3.7 Magnesium 2.0 Iron 16 L Transferrin 218 Transferrin % Sat 5 L Ferritin 22.6 Total Bilirubin 0.3 AST 16 ALT 23 Alkaline Phosphatase 64 Total Protein 6.6 Albumin 3.0 L Globulin 3.6 Albumin/Globulin Ratio 0.8 L Vitamin B12 Folate 02/28/20 05:51 WBC RBC Hgb Hct MCV MCH MCHC RDW Std Deviation RDW Coeff of Monika Plt Count MPV Sodium Potassium Chloride Carbon Dioxide Anion Gap BUN Creatinine Est Cr Clr Drug Dosing Est GFR ( Amer) Est GFR (Non-Af Amer) BUN/Creatinine Ratio Glucose Calcium Phosphorus Magnesium Iron Transferrin Transferrin % Sat Ferritin Total Bilirubin AST ALT Alkaline Phosphatase Total Protein Albumin Globulin Albumin/Globulin Ratio Vitamin B12 595 Folate 8.12 PG Care Time/CCT Total # of Minutes Spent Total Time Spent with Patient: Total time spent is greater than 50% in coordination of care (as documented) at patient's floor/unit and/or counseling patient: Coding Level of Care Code 96233 Subseq Hosp Care Lvl 3 Diagnoses Chronic kidney disease, stage V N18.5 Respiratory failure with hypoxia J96.21 Chronicity: acute on chronic CHF (congestive heart failure) I50.9 Heart failure chronicity: acute on chronic Heart failure type: unspecified Anemia D64.9 Ischemic cardiomyopathy I25.5 Peripheral vascular disease I73.9 (1) Respiratory failure with hypoxia Chronicity: acute on chronic Qualified Code(s): J96.21 - Acute and chronic respiratory failure with hypoxia (2) CHF (congestive heart failure) Heart failure chronicity: acute on chronic Heart failure type: unspecified Qualified Code(s): I50.9 - Heart failure, unspecified
[2020-02-28] MEDS ORDERED: IRON SUCROSE 200 MG in 0.9 % SODIUM CHLORIDE 100 ML IV ONE (11:15)
--- NOTE | 2020-02-28 12:16 | Cardiology Progress Note ---
Date of Service February 28, 2020 Assessment & Plan (1) Acute on chronic heart failure with reduced ejection fraction and diastolic dysfunction: (2) Cardiorenal syndrome: (3) NSVT (nonsustained ventricular tachycardia): (4) Chronic kidney disease, stage V: Volume status improving. Continue torsemide 20 mg daily. Repeat daily basic metabolic panel. Telemetry findings of nonsustained ventricular tachycardia discussed with patient. Indications for biventricular ICD implantation reviewed. Patient agreeable to proceed as scheduled 03/02/2020. Avoid Aldactone, ASHLIE inhibitor, and ARB's at this time. Add back hydralazine and long-acting nitrates as blood pressure allows during hospitalization. Subjective Patient seen and examined at the bedside. Denies chest pain or unusual shortness of breath. 30 beat natasha of nonsustained ventricular tachycardia recorded at 1 AM. Fluid balance negative approximately 2 L over the past 24 hours. Respiratory status improved. Patient transition from furosemide to torsemide. Tentative plan for biventricular ICD implantation 03/02/2020. Review of Systems Review of Systems: All systems reviewed & are unremarkable except as noted in HPI & below Physical Exam Constitutional: well developed, well nourished and average body habitus; no acute distress Respiratory: normal respiratory effort; no respiratory distress, no labored breathing and no cough Auscultation: breath sounds present, no crackles, no rales, no rhonchi and no wheezes Cardiovascular: Rate/Rhythm: regular rate and regular rhythm Heart Sounds: normal S1 and normal S2; no murmur and no cardiac rub Vessels: no JVD Extremities: no edema Results & Data Vital Signs (Past 12 Hours) Vital Signs Temp Pulse Pulse Resp BP Pulse Ox 02/28/20 11:15 36.5 C 51 L 18 120/67 100 02/28/20 08:00 49 L 02/28/20 07:26 36.5 C 50 L 18 125/63 99 02/28/20 06:00 67 02/28/20 03:35 36.4 C L 53 L 18 137/65 98 (1) Cardiorenal syndrome Heart failure presence: with heart failure Hypertensive chronic kidney disease stage: stage 5 chronic kidney disease or end stage renal disease Qualified Code(s): I13.2 - Hypertensive heart and chronic kidney disease with heart failure and with stage 5 chronic kidney disease, or end stage renal disease
--- NOTE | 2020-02-28 20:21 | Hospitalist Progress Note ---
Date of Service February 28, 2020 Assessment & Plan (1) Acute hypoxemic respiratory failure: Keron Fall is a 60-year-old male with a past medical history of an STEMI and CAD status post PCI with MARY to LAD x3 in 12/04/2019 with residual CHF and reduced ejection fraction, CKD 3, hypertension, hyperlipidemia, COPD, and PVD who presented to the emergency department by ambulance after they were reportedly called for Mr. weber having shortness of breath. On arrival to the emergency department patient was unresponsive and did not respond to sternal rub by the emergency department physician and required intubation. Acute hypoxic respiratory failure -It appears the main culprit was Acute systolic CHF. -COPD also is playing a role. -This has not been officially diagnosed, but patient has over a 30 pack year history of smoking. -Will continue to diurese patient. Intubated for respiratory support on admission, extubated on 02/25 stopped antibiotics. -will consult nephro and cardio. -may need dialysis in the near future as GFR and creatinine clearance is low. Heart failure with reduced ejection fraction, CAD with recent 3X MARY to LAD in November 2019 Continue prior to admission amlodipine, carvedilol via OG once placed Continue ASA/Plaavix at this time Troponin trending down. EKG without acute change proBNP is elevated, patient is improving. -will continue to diurese Leukocytosis stopped antibiotics. -likely reactive. Hypertension Antihypertensives as above COPD Pending PFTs as outpatient Peripheral vascular disease History of right common iliac to right femoral bypass in 1999, aortobifemoral bypass 06/2004 No signs of lower extremity ischemia on admission DVT prophylaxis: Heparin 5000 every 8 hours, pending evaluation of troponins and cardiac function as above CODE STATUS: Full code per history, unable to verify with patient. Pending collateral from family (2) Chronic kidney disease, stage 3 (moderate): CKD appears to be his new baseline. May consider renal consult. (3) Congestive heart disease: (4) Ischemic cardiomyopathy: (5) Respiratory acidosis: (6) CAD (coronary artery disease): (7) Hypertension: (8) Hyperlipidemia: (9) Peripheral vascular disease: (10) COPD (chronic obstructive pulmonary disease): Admission and Anticipated Discharge Date Admission Date: February 25, 2020 Subjective Patient reports feeling well. He has no new complaints. Review of Systems Review of Systems: All systems reviewed & are unremarkable except as noted in HPI & below Physical Exam Constitutional: WD/WN, vitals as above well developed Neck: trachea midline, no thyromegaly Respiratory: normal respiratory effort, lungs clear to auscultation (except for crackles in lower lobes) Cardiovascular: RRR, no murmur, no edema Gastrointestinal (Abdomen): normal bowel sounds, soft, nontender, no hepatosplenomegaly Skin: no rashes, warm and dry Neurologic: PERRL, EOMI, accommodation nl, no face palsy, no dysarthria Psychiatric: A+Ox3, euthymic affect Results & Data Results & Data ([facility]) Vital Signs (Past 12 Hours) Vital Signs Temp Pulse Resp BP Pulse Ox 02/28/20 18:50 36.4 C L 54 L 21 108/65 98 02/28/20 15:36 36.3 C L 64 20 117/68 99 02/28/20 11:15 36.5 C 51 L 18 120/67 100 PG Care Time/CCT Total # of Minutes Spent Total Time Spent with Patient: Total time spent is greater than 50% in coordination of care (as documented) at patient's floor/unit and/or counseling patient: Coding Level of Care Code 62415 Subseq Hosp Care Lvl 3 Diagnoses Acute hypoxemic respiratory failure J96.01 Chronic kidney disease, stage 3 (moderate) N18.3 Congestive heart disease I50.9 Ischemic cardiomyopathy I25.5 Respiratory acidosis E87.2 CAD (coronary artery disease) I25.10 Associated angina: without angina Coronary Disease-Associated Artery/Lesion type: [place] artery [place] vs. transplanted heart: [place] heart Hypertension I10 Hyperlipidemia E78.5 Peripheral vascular disease I73.9 COPD (chronic obstructive pulmonary disease) J44.9 Time Spent (min) 35 (1) CAD (coronary artery disease) Associated angina: without angina Coronary Disease-Associated Artery/Lesion type: [place] artery [place] vs. transplanted heart: [place] heart Qualified Code(s): I25.10 - Atherosclerotic heart disease of [place] coronary artery without angina pectoris
[2020-02-28] MEDS: ATORVASTATIN 40 MG TAB PO SCH (20:48)
[2020-02-29 06:14] LABS: BUN Creatinine Ratio 21.8 (10-20); Calcium 8.7 mg/dl (8.5-10.1); Creatinine Clr Calc Pharmacy 26.5 ml/min; Est GFR (African American) 30.3; Est GFR (Non-African American) 26.1; Phosphorus 3.3 mg/dl (2.5-4.9); Potassium 3.7 mmol/L (3.5-5.1)
[2020-02-29] MEDS: carvediloL 6.25 MG TAB PO SCH ×2 (07:45→20:50)
[2020-02-29] MEDS: ASPIRIN 81 MG ECTAB PO SCH (07:46)
[2020-02-29] MEDS: CLOPIDOGREL BISULFATE 75 MG TAB PO SCH (07:46)
[2020-02-29] MEDS: PANTOprazole 40 MG TAB PO SCH (07:46)
[2020-02-29] MEDS: TORSEMIDE 10 MG TAB PO SCH (07:47)
[2020-02-29] MEDS: HEPARIN SOD 5,000 UNIT/0.5 ML VIAL SQ SCH ×3 (07:48→23:51)
[2020-02-29] MEDS ORDERED: POTASSIUM CHLORIDE 20 MEQ TABCR PO STA (08:28)
[2020-02-29] MEDS ORDERED: FUROSEMIDE 20 MG TAB PO SCH (09:00)
--- NOTE | 2020-02-29 10:32 | Nephrology Progress Note ---
Date of Service February 29, 2020 Assessment & Plan (1) Chronic kidney disease, stage V: Creatinine relatively stable at 2.5 mg/dL. Urine output acceptable. Remains on torsemide 20 mg daily. Volume status acceptable. Adjust diuretic as needed to maintain even or slightly negative fluid balance. Electrolytes within normal limits. KCl 20 mEq daily provided. Medications are appropriate for kidney function. No emergent indication for [place]OB[place] HAULER. Will continue to follow with daily labs. Please document I/O's and check weights daily. (2) CHF (congestive heart failure): Management per cardiology. Tentative plan for biV pacer on Sunday. Titration of medications including nitrates and hydralazine per cardiology. Keron is tolerating current therapy well. Volume status appears to be acceptable. Remains on torsemide 20 mg daily which may be increased as needed. I would favor that we continued to avoid spironolactone as well as ACEi/ARB for now due to renal insufficiency. (3) Anemia: YONNY therapy deferred due to Hgb >10 and low Tsat. Venofer 200 mg provided yesterday. Additional 200 mg IV iron provided today. (4) Ischemic cardiomyopathy: (5) Peripheral vascular disease: Admission and Anticipated Discharge Date Admission Date: February 25, 2020 Subjective No acute events overnight. Weight stable. I/O slightly positive. Good urine output. Fluid restriction reviewed. Review of Systems Review of Systems: All systems reviewed & are unremarkable except as noted in HPI & below Physical Exam Physical Exam: Deferred due to COVID 19 pandemic. Results & Data ([facility]) Vital Signs (Past 12 Hours) Vital Signs Temp Pulse Resp BP Pulse Ox 02/29/20 07:53 36.5 C 53 L 18 130/71 100 02/29/20 04:15 36.3 C L 52 L 18 131/66 97 02/28/20 23:36 36.5 C 65 18 139/66 95 Laboratory Results Laboratory Results - last 24 hr 02/29/20 05:25 Sodium 135 L Potassium 3.7 Chloride 103 Carbon Dioxide 26 Anion Gap 6.0 BUN 55 H Creatinine 2.53 H Est Cr Clr Drug Dosing 26.5 Est GFR ( Amer) 30.3 Est GFR (Non-Af Amer) 26.1 BUN/Creatinine Ratio 21.8 H Glucose 98 Calcium 8.7 Phosphorus 3.3 Albumin 3.0 L PG Care Time/CCT Total # of Minutes Spent Total Time Spent with Patient: Total time spent is greater than 50% in coordination of care (as documented) at patient's floor/unit and/or counseling patient: Coding Level of Care Code 98506 Subseq Hosp Care Lvl 3 Diagnoses Chronic kidney disease, stage V N18.5 CHF (congestive heart failure) I50.9 Heart failure chronicity: acute on chronic Heart failure type: unspecified Anemia D64.9 Ischemic cardiomyopathy I25.5 Peripheral vascular disease I73.9 (1) CHF (congestive heart failure) Heart failure chronicity: acute on chronic Heart failure type: unspecified Qualified Code(s): I50.9 - Heart failure, unspecified
[2020-02-29] MEDS ORDERED: IRON SUCROSE 200 MG in 0.9 % SODIUM CHLORIDE 100 ML IV ONE (11:00)
--- NOTE | 2020-02-29 14:53 | Cardiology Progress Note ---
Date of Service February 29, 2020 Assessment & Plan (1) Acute on chronic heart failure with reduced ejection fraction and diastolic dysfunction: (2) Cardiorenal syndrome: (3) NSVT (nonsustained ventricular tachycardia): (4) Chronic kidney disease, stage V: Continue torsemide 20 mg daily. Repeat daily basic metabolic panel. Indications for biventricular ICD implantation reviewed. Patient agreeable to proceed as scheduled 03/02/2020. Avoid Aldactone, ASHLIE inhibitor, and ARB's at this time. Restart hydralazine 10mg twice daily. (outpatient dose 12.5mg BID) Plan to restart isosorbide monohydrate in the next 24 to 48 hours pending blood pressure response. Subjective Patient seen and examined the bedside. Feeling well today. Fluid balance remains negative. Creatinine stable. No chest pain or unusual shortness of breath. No recurrent ventricular tachycardia on telemetry. Tolerating diet medications. Offers no other concerns/complaints this time. Review of Systems Review of Systems: All systems reviewed & are unremarkable except as noted in HPI & below Physical Exam Constitutional: well developed, well nourished and average body habitus; no acute distress Respiratory: normal respiratory effort; no respiratory distress, no labored breathing and no cough Auscultation: breath sounds present, no crackles, no rales, no rhonchi and no wheezes Cardiovascular: Rate/Rhythm: regular rate and regular rhythm Heart Sounds: normal S1 and normal S2; no murmur and no cardiac rub Vessels: no JVD Extremities: no edema Results & Data Vital Signs (Past 12 Hours) Vital Signs Temp Pulse Resp BP Pulse Ox 02/29/20 11:32 36.6 C 59 L 19 118/60 98 02/29/20 07:53 36.5 C 53 L 18 130/71 100 02/29/20 04:15 36.3 C L 52 L 18 131/66 97 (1) Cardiorenal syndrome Heart failure presence: with heart failure Hypertensive chronic kidney disease stage: stage 5 chronic kidney disease or end stage renal disease Qualified Code(s): I13.2 - Hypertensive heart and chronic kidney disease with heart failure and with stage 5 chronic kidney disease, or end stage renal disease
[2020-02-29] MEDS: HydrALAZINE 10 MG TAB PO SCH (20:50)
[2020-02-29] MEDS: ATORVASTATIN 40 MG TAB PO SCH (20:50)
--- NOTE | 2020-02-29 22:31 | Hospitalist Progress Note ---
Date of Service February 29, 2020 Assessment & Plan (1) Acute hypoxemic respiratory failure: Keron Fall is a 60-year-old male with a past medical history of an STEMI and CAD status post PCI with MARY to LAD x3 in 12/04/2019 with residual CHF and reduced ejection fraction, CKD 3, hypertension, hyperlipidemia, COPD, and PVD who presented to the emergency department by ambulance after they were reportedly called for Mr. weber having shortness of breath. On arrival to the emergency department patient was unresponsive and did not respond to sternal rub by the emergency department physician and required intubation. Acute hypoxic respiratory failure Acute systolic CHF. -It appears the main culprit was Acute systolic CHF. -COPD may also is playing a role. -COPD has not been officially diagnosed, but patient has over a 30 pack year history of smoking. -Will continue to diurese patient as kidneys have been tolerating diuresis.. Intubated for respiratory support on admission, extubated on 02/25 stopped antibiotics. -will consult nephro and cardio. -may need dialysis in the near future as GFR and creatinine clearance is low. Appreciate input from cardiology. Indications for biventricular ICD implantation reviewed. Patient agreeable to proceed as scheduled 03/02/2020. Avoid Aldactone, ASHLIE inhibitor, and ARB's at this time. Restart hydralazine 10mg twice daily. (outpatient dose 12.5mg BID) Acute on Chronic Heart failure with reduced ejection fraction, CAD with recent 3X MARY to LAD in November 2019 Continue prior to admission amlodipine, carvedilol via OG once placed Continue ASA/Plaavix at this time Troponin trending down. EKG without acute change proBNP is elevated, patient is improving. -will continue to diurese Leukocytosis stopped antibiotics. -likely reactive. Hypertension Antihypertensives as above COPD Pending PFTs as outpatient Peripheral vascular disease History of right common iliac to right femoral bypass in 1999, aortobifemoral bypass 06/2004 No signs of lower extremity ischemia on admission DVT prophylaxis: Heparin 5000 every 8 hours, pending evaluation of troponins and cardiac function as above CODE STATUS: Full code per history, unable to verify with patient. Pending collateral from family (2) Chronic kidney disease, stage 3 (moderate): CKD appears to be his new baseline. May consider renal consult. (3) Congestive heart disease: (4) Ischemic cardiomyopathy: (5) Respiratory acidosis: (6) CAD (coronary artery disease): (7) Hypertension: (8) Hyperlipidemia: (9) Peripheral vascular disease: (10) COPD (chronic obstructive pulmonary disease): Admission and Anticipated Discharge Date Admission Date: February 25, 2020 Subjective Patient has no new complaints today. Review of Systems Review of Systems: All systems reviewed & are unremarkable except as noted in HPI & below Physical Exam Constitutional: WD/WN, vitals as above well developed Neck: trachea midline, no thyromegaly Respiratory: normal respiratory effort, lungs clear to auscultation (except for crackles in lower lobes) Cardiovascular: RRR, no murmur, no edema Gastrointestinal (Abdomen): normal bowel sounds, soft, nontender, no hepatosplenomegaly Skin: no rashes, warm and dry Neurologic: PERRL, EOMI, accommodation nl, no face palsy, no dysarthria Psychiatric: A+Ox3, euthymic affect Results & Data Results & Data ([facility]) Vital Signs (Past 12 Hours) Vital Signs Temp Pulse Resp BP Pulse Ox 02/29/20 19:18 36.6 C 59 L 20 113/62 93 02/29/20 15:27 36.7 C 52 L 20 119/64 100 02/29/20 11:32 36.6 C 59 L 19 118/60 98 PG Care Time/CCT Total # of Minutes Spent Total Time Spent with Patient: Total time spent is greater than 50% in coordination of care (as documented) at patient's floor/unit and/or counseling patient: Coding Level of Care Code 36975 Subseq Hosp Care Lvl 2 Diagnoses Acute hypoxemic respiratory failure J96.01 Chronic kidney disease, stage 3 (moderate) N18.3 Congestive heart disease I50.9 Ischemic cardiomyopathy I25.5 Respiratory acidosis E87.2 CAD (coronary artery disease) I25.10 Associated angina: without angina Coronary Disease-Associated Artery/Lesion type: [place] artery [place] vs. transplanted heart: [place] heart Hypertension I10 Hyperlipidemia E78.5 Peripheral vascular disease I73.9 COPD (chronic obstructive pulmonary disease) J44.9 Time Spent (min) 25 (1) CAD (coronary artery disease) Associated angina: without angina Coronary Disease-Associated Artery/Lesion type: [place] artery [place] vs. transplanted heart: [place] heart Qualified Code(s): I25.10 - Atherosclerotic heart disease of [place] coronary artery without angina pectoris
[2020-03-01 07:11] LABS: BUN Creatinine Ratio 22.1 (10-20); Calcium 9.1 mg/dl (8.5-10.1); Creatinine Clr Calc Pharmacy 25.9 ml/min; Est GFR (African American) 29.7; Est GFR (Non-African American) 25.7; Magnesium 2.2 mg/dl (1.8-2.4); Potassium 4.2 mmol/L (3.5-5.1)
[2020-03-01] MEDS: PANTOprazole 40 MG TAB PO SCH (09:09)
[2020-03-01] MEDS: POTASSIUM CHLORIDE 20 MEQ TABCR PO SCH (09:10)
[2020-03-01] MEDS: ASPIRIN 81 MG ECTAB PO SCH (09:10)
[2020-03-01] MEDS: carvediloL 6.25 MG TAB PO SCH ×2 (09:11→19:45)
[2020-03-01] MEDS: CLOPIDOGREL BISULFATE 75 MG TAB PO SCH (09:12)
[2020-03-01] MEDS: TORSEMIDE 10 MG TAB PO SCH (09:12)
[2020-03-01] MEDS: HEPARIN SOD 5,000 UNIT/0.5 ML VIAL SQ SCH ×2 (09:13→15:49)
[2020-03-01] MEDS: HydrALAZINE 10 MG TAB PO SCH ×2 (09:13→21:04)
[2020-03-01] MEDS ORDERED: IRON SUCROSE 200 MG in 0.9 % SODIUM CHLORIDE 100 ML IV ONE (09:30)
--- NOTE | 2020-03-01 11:34 | Cardiology Progress Note ---
Date of Service March 01, 2020 Assessment & Plan (1) Acute on chronic heart failure with reduced ejection fraction and diastolic dysfunction: (2) Cardiorenal syndrome: (3) NSVT (nonsustained ventricular tachycardia): (4) Chronic kidney disease, stage V: Continue torsemide 20 mg daily. Repeat daily basic metabolic panel. Indications for biventricular ICD implantation reviewed. Risk versus benefit reviewed. Patient agreeable to proceed as scheduled tomorrow, 03/02/[address] Sanchez. Avoid Aldactone, ASHLIE inhibitor, and ARB's at this time. Continue hydralazine 10mg twice daily. (outpatient dose 12.5mg BID) Restart isosorbide monohydrate. Patient requesting prescriptions sent to [facility] upon discharge. Subjective Patient seen and examined at the bedside. Fluid balance negative approximately 1000 cc over the past 24 hours. Patient denies chest pain or unusual shortness of breath. No recurrent ventricular tachycardia on telemetry. Hydralazine restarted yesterday. Blood pressure remained stable. He has questions regarding implantation of biventricular defibrillator tomorrow. Offers no other concerns/complaints at this time. Review of Systems Review of Systems: All systems reviewed & are unremarkable except as noted in HPI & below Physical Exam Constitutional: well developed, well nourished and average body habitus; no acute distress Respiratory: normal respiratory effort; no respiratory distress, no labored breathing and no cough Auscultation: breath sounds present, no crackles, no rales, no rhonchi and no wheezes Cardiovascular: Rate/Rhythm: regular rate and regular rhythm Heart Sounds: normal S1 and normal S2; no murmur and no cardiac rub Vessels: no JVD Extremities: no edema Results & Data Vital Signs (Past 12 Hours) Vital Signs Temp Pulse Resp BP BP Pulse Ox 03/01/20 09:15 67 115/63 03/01/20 07:37 36.6 C 62 19 120/65 97 03/01/20 03:18 36.5 C 56 L 19 122/63 98 02/29/20 23:44 36.5 C 58 L 18 123/64 100 (1) Cardiorenal syndrome Heart failure presence: with heart failure Hypertensive chronic kidney disease stage: stage 5 chronic kidney disease or end stage renal disease Qualified Code(s): I13.2 - Hypertensive heart and chronic kidney disease with heart failure and with stage 5 chronic kidney disease, or end stage renal disease
--- NOTE | 2020-03-01 12:38 | Nephrology Progress Note ---
Date of Service March 01, 2020 Assessment & Plan (1) Chronic kidney disease, stage V: Creatinine stable at 2.5 mg/dL. Urine output acceptable. Remains on torsemide 20 mg daily. Volume status controlled. Electrolytes within normal limits. KCl 20 mEq daily provided. Medications are appropriate for kidney function. No emergent indication for [place]. Nephrology will continue to follow peripherally while hospitalized. Please monitor daily labs. Keron will need close outpatient follow up with nephrology. He has been following with a provider through the [place] system prior to admission. (2) CHF (congestive heart failure): I would favor that we continued to avoid spironolactone as well as ACEi/ARB for now due to renal insufficiency. (3) Anemia: YONNY therapy deferred due to Hgb >10 and low Tsat. Venofer 200 mg daily day 3 today. (4) Ischemic cardiomyopathy: (5) Peripheral vascular disease: Admission and Anticipated Discharge Date Admission Date: February 25, 2020 Subjective No acute events overnight. Keron feels well. Tolerating IV iron. Responding well to current therapy and diuretics. Review of Systems Review of Systems: All systems reviewed & are unremarkable except as noted in HPI & below Physical Exam Physical Exam: Deferred due to COVID 19 pandemic Results & Data ([facility]) Vital Signs (Past 12 Hours) Vital Signs Temp Pulse Pulse Resp BP BP Pulse Ox 03/01/20 11:32 36.5 C 60 18 99/55 L 96 03/01/20 09:15 67 115/63 03/01/20 07:37 36.6 C 62 19 120/65 97 03/01/20 03:18 36.5 C 56 L 19 122/63 98 Laboratory Results Laboratory Results - last 24 hr 03/01/20 06:09 Sodium 135 L Potassium 4.2 Chloride 102 Carbon Dioxide 24 Anion Gap 9.0 BUN 57 H Creatinine 2.57 H Est Cr Clr Drug Dosing 25.9 Est GFR ( Amer) 29.7 Est GFR (Non-Af Amer) 25.7 BUN/Creatinine Ratio 22.1 H Glucose 89 Calcium 9.1 Magnesium 2.2 PG Care Time/CCT Total # of Minutes Spent Total Time Spent with Patient: Total time spent is greater than 50% in coordination of care (as documented) at patient's floor/unit and/or counseling patient: Coding Level of Care Code 82851 Subseq Hosp Care Lvl 3 Diagnoses Chronic kidney disease, stage V N18.5 CHF (congestive heart failure) I50.9 Heart failure chronicity: acute on chronic Heart failure type: unspecified Anemia D64.9 Ischemic cardiomyopathy I25.5 Peripheral vascular disease I73.9 (1) CHF (congestive heart failure) Heart failure chronicity: acute on chronic Heart failure type: unspecified Qualified Code(s): I50.9 - Heart failure, unspecified
[2020-03-01] MEDS: ATORVASTATIN 40 MG TAB PO SCH (19:45)
--- NOTE | 2020-03-01 22:51 | Hospitalist Progress Note ---
Date of Service March 01, 2020 Assessment & Plan (1) Acute hypoxemic respiratory failure: Keron Fall is a 60-year-old male with a past medical history of an STEMI and CAD status post PCI with MARY to LAD x3 in 12/04/2019 with residual CHF and reduced ejection fraction, CKD 3, hypertension, hyperlipidemia, COPD, and PVD who presented to the emergency department by ambulance after they were reportedly called for Mr. weber having shortness of breath. On arrival to the emergency department patient was unresponsive and did not respond to sternal rub by the emergency department physician and required intubation. Acute hypoxic respiratory failure Acute systolic CHF. -It appears the main culprit was Acute systolic CHF. -COPD may also is playing a role. -COPD has not been officially diagnosed, but patient has over a 30 pack year history of smoking. -Will continue to diurese patient as kidneys have been tolerating diuresis.. Intubated for respiratory support on admission, extubated on 02/25 stopped antibiotics as likely CHF. -will consult nephro and cardio. -may need dialysis in the near future as GFR and creatinine clearance is low. Appreciate input from cardiology. Indications for biventricular ICD implantation reviewed. Patient agreeable to proceed as scheduled 03/02/2020. Avoid Aldactone, ASHLIE inhibitor, and ARB's at this time. Restart hydralazine 10mg twice daily. (outpatient dose 12.5mg BID) Acute on Chronic Heart failure with reduced ejection fraction, CAD with recent 3X MARY to LAD in November 2019 Continue prior to admission amlodipine, carvedilol via OG once placed Continue ASA/Plaavix at this time Troponin trending down. EKG without acute change proBNP is elevated, patient is improving. -will continue to diurese Leukocytosis stopped antibiotics. -likely reactive. Hypertension Antihypertensives as above COPD Pending PFTs as outpatient Peripheral vascular disease History of right common iliac to right femoral bypass in 1999, aortobifemoral bypass 06/2004 No signs of lower extremity ischemia on admission DVT prophylaxis: Heparin 5000 every 8 hours, pending evaluation of troponins and cardiac function as above CODE STATUS: Full code per history, unable to verify with patient. Pending collateral from family (2) Chronic kidney disease, stage 3 (moderate): CKD appears to be his new baseline. May consider renal consult. (3) Congestive heart disease: (4) Ischemic cardiomyopathy: (5) Respiratory acidosis: (6) CAD (coronary artery disease): (7) Hypertension: (8) Hyperlipidemia: (9) Peripheral vascular disease: (10) COPD (chronic obstructive pulmonary disease): Admission and Anticipated Discharge Date Admission Date: February 25, 2020 Discharge date: 03/01/2020 Subjective Patient reports no new complaints Review of Systems Review of Systems: All systems reviewed & are unremarkable except as noted in HPI & below Physical Exam Constitutional: WD/WN, vitals as above well developed Neck: trachea midline, no thyromegaly Respiratory: normal respiratory effort, lungs clear to auscultation (except for crackles in lower lobes) Cardiovascular: RRR, no murmur, no edema Gastrointestinal (Abdomen): normal bowel sounds, soft, nontender, no hepatosplenomegaly Skin: no rashes, warm and dry Neurologic: PERRL, EOMI, accommodation nl, no face palsy, no dysarthria Psychiatric: A+Ox3, euthymic affect Results & Data Results & Data ([facility]) Vital Signs (Past 12 Hours) Vital Signs Temp Pulse Resp BP BP Pulse Ox 03/01/20 19:47 36.9 C 61 22 111/61 95 03/01/20 15:28 36.7 C 59 L 19 112/61 95 03/01/20 11:32 36.5 C 60 18 99/55 L 96 PG Care Time/CCT Total # of Minutes Spent Total Time Spent with Patient: Total time spent is greater than 50% in coordination of care (as documented) at patient's floor/unit and/or counseling patient: Coding Level of Care Code 35719 Subseq Hosp Care Lvl 2 Diagnoses Acute hypoxemic respiratory failure J96.01 Chronic kidney disease, stage 3 (moderate) N18.3 Congestive heart disease I50.9 Ischemic cardiomyopathy I25.5 Respiratory acidosis E87.2 CAD (coronary artery disease) I25.10 Associated angina: without angina Coronary Disease-Associated Artery/Lesion type: [place] artery [place] vs. transplanted heart: [place] heart Hypertension I10 Hyperlipidemia E78.5 Peripheral vascular disease I73.9 COPD (chronic obstructive pulmonary disease) J44.9 Time Spent (min) 25 (1) CAD (coronary artery disease) Associated angina: without angina Coronary Disease-Associated Artery/Lesion type: [place] artery [place] vs. transplanted heart: [place] heart Qualified Code(s): I25.10 - Atherosclerotic heart disease of [place] coronary artery without angina pectoris
[2020-03-02] MEDS: HEPARIN SOD 5,000 UNIT/0.5 ML VIAL SQ SCH ×4 (00:28→22:18)
[2020-03-02 06:49] LABS: Hematocrit (blood only) 32.2 % (42-52); Hemoglobin 10.4 g/dL (14.0-18.0); Mean Corpuscular Hgb Conc 32.3 g/dL (32-36); Mean Corpuscular Volume 92.8 fL (80-100); Mean Platelet Volume 10.3 fL (7.4-10.4); Platelet Count 254 K/uL (130-400); RDW Coefficient of Variation 14.9 % (11.5-14.5); RDW Standard Deviation 50.7 fL (36.4-46.3); Red Blood Count 3.47 M/uL (4.7-6.1); White Blood Count 7.73 K/uL (4.8-10.8)
[2020-03-02] MEDS ORDERED: LIDOCAINE HCL 1% 20 ML VIAL ONE (07:51)
[2020-03-02] MEDS ORDERED: BUPIVACAINE 0.25% 30 ML VIAL ONE (07:51)
[2020-03-02] MEDS ORDERED: BACITRACIN INJ 50,000 UNIT VIAL ONE (07:52)
--- NOTE | 2020-03-02 08:28 | History & Physical Bridge Note ---
Date of Service March 02, 2020 History & Physical Bridge Note I have examined the patient, reviewed the History & Physical and in the interval since the performance of the History & Physical I have noted the following changes of clinical significance: Pt with ICM, LBBB, chronic heart failure reduced EF secondary to systolic dysfunction NYHA Class III and VT. Pt for biv ICD.
--- NOTE | 2020-03-02 08:28 | Pre Anesthesia Assessment ---
Date of Service March 02, 2020 Pre Sedation Assessment Vital Signs Temp Pulse Pulse Pulse Resp BP BP 03/02/20 07:50 61 16 134/64 03/02/20 07:27 36.4 C L 67 16 123/78 03/02/20 04:28 36.5 C 55 L 18 129/65 03/02/20 00:00 61 03/01/20 23:47 36.8 C 71 17 136/67 03/01/20 19:47 36.9 C 61 22 111/61 03/01/20 15:28 36.7 C 59 L 19 112/61 03/01/20 11:32 36.5 C 60 18 99/55 L 03/01/20 09:15 67 115/63 Pulse Ox 03/02/20 07:50 94 03/02/20 07:27 97 03/02/20 04:28 100 03/02/20 00:00 03/01/20 23:47 100 03/01/20 19:47 95 03/01/20 15:28 95 03/01/20 11:32 96 03/01/20 09:15 Cardiovascular + regular rate and + regular rhythm Respiratory + respiratory effort normal Pre-Sedation Airway Assessment Smoking Status: Former smoker Hx Sleep Apnea: No Short, Thick Neck: No Oral Cavity: + Dentures and + WNL Mallampati Class: II ASA: ASA3 NPO Status Date of Last Intake of Fluids: 03/01/20 Time of Last Intake of Fluids: 19:00 Date of Last Intake of Solid Food: 03/01/20 Time of Last Intake of Solid Foods: 19:00 Procedure Planning Contraindications for Sedation: none Current Medications Reviewed: Yes Notes The planned sedation has been discussed with the patient. Informed Consent was obtained. I have identified the patient, determined the appropriateness of sedation and have assessed the patient immediately prior to the procedure. All medicine(s) and interventions are by my order.
[2020-03-02] MEDS ORDERED: MIDAZOLAM HCL 5 MG/ML 1 ML VIAL ONE ×2 (08:40→09:22)
[2020-03-02] MEDS ORDERED: fentaNYL citrate 100 MCG/2 ML VIAL ONE ×3 (08:40→11:16)
[2020-03-02] MEDS ORDERED: CEFAZOLIN 250 MG/ML 1 GM VIAL ONE ×2 (08:40→08:44)
--- NOTE | 2020-03-02 11:52 | Post Anesthesia Assessment ---
Date of Service March 02, 2020 Post Sedation Assessment Vital Signs Temp Pulse Pulse Pulse Resp BP BP 03/02/20 07:50 61 16 134/64 03/02/20 07:27 36.4 C L 67 16 123/78 03/02/20 04:28 36.5 C 55 L 18 129/65 03/02/20 00:00 61 03/01/20 23:47 36.8 C 71 17 136/67 03/01/20 19:47 36.9 C 61 22 111/61 03/01/20 15:28 36.7 C 59 L 19 112/61 Pulse Ox 03/02/20 07:50 94 03/02/20 07:27 97 03/02/20 04:28 100 03/02/20 00:00 03/01/20 23:47 100 03/01/20 19:47 95 03/01/20 15:28 95 Recovery Score Activity: Moves 4 extremities Respiration: Deep Breath/Cough Circulation: +/-20% PreAnes Value Consciousness: Fully Awake Oxygen Saturation: > 92% On Room Air Discharge Sedation Level of Care: Fast Track Phase II Post Sedation Plan On clinical assessment, the patient appears to have tolerated the sedation without complications. Patient is recovering as anticipated. Patient will continue to be monitored by nursing and may be discharged when sedation discharge criteria are met per below protocol. Upon Completions of procedure up to 15 minutes continue every 5 minute vital signs and the P.A.R. score; then discharge to a Phase I or Fast Track to Phase II per the following guidelines: * Discharge Patient to appropriate Phase II area if PAR is 8 or greater or return to pre- procedure baseline. The post - procedure orders will be as directed. * If PAR score is less than 8 or not return to pre-procedure baseline then patient will follow Phase I monitoring till PAR is reached for Phase II. The Phase I may be done in procedure room or may call to secure a Phase I area. * If naloxone or flumazenil are used for reversal, hold in Phase I for continued monitoring from when last reversal dose was given for a minimum of 60 minutes or longer pending the nurse and/or physician discretion of patient condition before discharge to Phase II. Please call the Sedation Physician to re-evaluate and complete post-note for discharge to Phase II area. Do NOT discharge from procedure sedation or Phase 1 until post- sedation evaluation note is complete by procedure /sedation MD Sedation Discharge Instructions to be given to the patient at discharge to home.
--- NOTE | 2020-03-02 11:53 | Operative Report ---
Post Operative Report Pre & Post Diagnosis ICM, LBBB, Chronic Heart failure with reduced EF secondary to systolic dysfunction Operation Date: 03/02/20 08:00 <No data on this case meets the specified criteria> I identified the patient and participated in the time-out.: Yes Procedure Operation Date: 03/02/20 08:00 Actual Procedures p Cineradiography w/Routine Exam - Mirta Benavidez DO Surgeon Mirta Benavidez DO Food Consultant none Estimated Blood Loss 25 Findings Consistent with Post-Op Diagnosis Specimens none Description of Procedure see official report I attest to the content of the Intraoperative Record and any orders documented therein. Any exceptions are noted below.
[2020-03-02] MEDS: ISOSORBIDE MONO EXTENDED REL 30 MG TABCR PO SCH ×2 (12:27→22:17)
[2020-03-02] MEDS: TORSEMIDE 10 MG TAB PO SCH (12:28)
[2020-03-02] MEDS: HydrALAZINE 10 MG TAB PO SCH ×2 (12:28→22:17)
[2020-03-02] MEDS: PANTOprazole 40 MG TAB PO SCH (12:29)
[2020-03-02] MEDS: CLOPIDOGREL BISULFATE 75 MG TAB PO SCH (12:29)
[2020-03-02] MEDS: ASPIRIN 81 MG ECTAB PO SCH (12:30)
[2020-03-02] MEDS: POTASSIUM CHLORIDE 20 MEQ TABCR PO SCH (12:30)
[2020-03-02] MEDS: fentaNYL citrate 100 MCG/2 ML VIAL IV PRN (13:31)
[2020-03-02] MEDS: carvediloL 6.25 MG TAB PO SCH ×2 (13:44→20:10)
[2020-03-02] MEDS ORDERED: MoRPHine SULFATE 4 MG/ML 1 ML CARP\\VIAL IV PRN (15:30)
[2020-03-02] MEDS: OXYCODONE/ACETAMINOPHEN 5mg/325mg TAB PO PRN ×2 (15:47→22:16)
--- NOTE | 2020-03-02 16:00 | Electrocardiogram Report ---
Test Reason : Blood Pressure : / mmHG Vent. Rate : 067 BPM Atrial Rate : 067 BPM P-R Int : 128 ms QRS Dur : 120 ms QT Int : 418 ms P-R-T Axes : 045 014 205 degrees QTc Int : 441 ms Atrial-sensed ventricular-paced rhythm Abnormal ECG When compared with ECG of 27-FEB-2020 10:49, Pacer now present Confirmed by Amos Ambriz ([id number]) on 03/02/2020 4:00:01 PM Referred By: REFERRED SELF Confirmed By:Amos Ambriz
--- NOTE | 2020-03-02 18:44 | Hospitalist Progress Note ---
Date of Service March 02, 2020 Assessment & Plan (1) Acute hypoxemic respiratory failure: Keron Fall is a 60-year-old male with a past medical history of an STEMI and CAD status post PCI with MARY to LAD x3 in 12/04/2019 with residual CHF and reduced ejection fraction, CKD 3, hypertension, hyperlipidemia, COPD, and PVD who presented to the emergency department by ambulance after they were reportedly called for Mr. weber having shortness of breath. On arrival to the emergency department patient was unresponsive and did not respond to sternal rub by the emergency department physician and required intubation. Acute hypoxic respiratory failure Acute systolic CHF. -recurrent acute systolic CHF - appearing quite brittle due to low EF and CKD. diuresed, device placed today. reaffirmed low Na diet - may need to go home on higher dosing of diuretic Acute on Chronic Heart failure with reduced ejection fraction, CAD with recent 3X MARY to LAD in November 2019 no angina. med management as above, follow clinically, follow BMP Leukocytosis -likely reactive. normalized. Hypertension Antihypertensives as above - BP shows reasonable control COPD Pending PFTs as outpatient - managing as presumed moderate COPD until then (anticholinergic and rescue inhaler) Peripheral vascular disease History of right common iliac to right femoral bypass in 1999, aortobifemoral bypass 06/2004 No signs of lower extremity ischemia on admission DVT prophylaxis: Heparin 5000 every 8 hours, pending evaluation of troponins and cardiac function as above dispo - anticipate home tomorrow if ongoing improvement in CHF status and stability after procedure. (2) Chronic kidney disease, stage 3 (moderate): CKD appears to be his new baseline. May consider renal consult. (3) Congestive heart disease: (4) Ischemic cardiomyopathy: (5) Respiratory acidosis: (6) CAD (coronary artery disease): (7) Hypertension: (8) Hyperlipidemia: (9) Peripheral vascular disease: (10) COPD (chronic obstructive pulmonary disease): Admission and Anticipated Discharge Date Admission Date: February 25, 2020 Subjective feeling better and breathing better than when he came in. does have post op pain from ICD site. no other copmlaints. was trying to eat well w low Na while home - relates having had cereal, denies any sodium laden foods. then remembers a burger - but notes was just plain beef no bun. Review of Systems Review of Systems: All systems reviewed & are unremarkable except as noted in HPI & below Physical Exam Physical Exam: gen aao pleasant nad heent nc at mmm breathing unlabored no accessory muscles good effort skin no rashes no pallor or icterus, L upper chest wall site c/d/i dressed Results & Data Results & Data ([facility]) Vital Signs (Past 12 Hours) Vital Signs Temp Pulse Pulse Resp BP BP Pulse Ox 03/02/20 15:00 97.9 F 72 16 104/58 L 96 03/02/20 14:30 97.7 F 69 16 107/61 94 03/02/20 14:00 97.7 F 94 H 68 16 121/59 L 94 03/02/20 13:30 80 16 119/68 93 03/02/20 13:00 79 18 126/69 94 03/02/20 12:45 97.7 F 80 16 117/68 93 03/02/20 12:30 97.5 F L 78 18 125/77 94 03/02/20 12:15 97.5 F L 67 16 123/68 93 03/02/20 12:05 68 16 126/67 94 03/02/20 11:50 67 16 135/71 94 03/02/20 07:50 61 16 134/64 94 03/02/20 07:27 97.5 F L 67 16 123/78 97 PG Care Time/CCT Total # of Minutes Spent Total Time Spent with Patient: Total time spent is greater than 50% in coordination of care (as documented) at patient's floor/unit and/or counseling patient: Coding Level of Care Code 42249 Subseq Hosp Care Lvl 2 Diagnoses Acute hypoxemic respiratory failure J96.01 Chronic kidney disease, stage 3 (moderate) N18.3 Congestive heart disease I50.9 Ischemic cardiomyopathy I25.5 Respiratory acidosis E87.2 CAD (coronary artery disease) I25.10 Coronary Disease-Associated Artery/Lesion type: [place] artery [place] vs. transplanted heart: [place] heart Associated angina: without angina Hypertension I10 Hyperlipidemia E78.5 Peripheral vascular disease I73.9 COPD (chronic obstructive pulmonary disease) J44.9 (1) CAD (coronary artery disease) Coronary Disease-Associated Artery/Lesion type: [place] artery [place] vs. transplanted heart: [place] heart Associated angina: without angina Qualified Code(s): I25.10 - Atherosclerotic heart disease of [place] coronary artery w ithout angina pectoris
[2020-03-02] MEDS: ATORVASTATIN 40 MG TAB PO SCH (20:10)
[2020-03-03] MEDS: OXYCODONE/ACETAMINOPHEN 5mg/325mg TAB PO PRN ×3 (02:27→16:27)
[2020-03-03 06:51] LABS: BUN Creatinine Ratio 20.8 (10-20); Calcium 8.6 mg/dl (8.5-10.1); Est GFR (African American) 22.9; Est GFR (Non-African American) 19.8; Potassium 4.4 mmol/L (3.5-5.1)
[2020-03-03] MEDS: HydrALAZINE 10 MG TAB PO SCH ×2 (07:20→20:16)
[2020-03-03] MEDS: POTASSIUM CHLORIDE 20 MEQ TABCR PO SCH (07:20)
[2020-03-03] MEDS: TORSEMIDE 10 MG TAB PO SCH (07:21)
[2020-03-03] MEDS: ISOSORBIDE MONO EXTENDED REL 30 MG TABCR PO SCH ×2 (07:21→20:17)
[2020-03-03] MEDS: PANTOprazole 40 MG TAB PO SCH (07:22)
[2020-03-03] MEDS: ASPIRIN 81 MG ECTAB PO SCH (07:22)
[2020-03-03] MEDS: CLOPIDOGREL BISULFATE 75 MG TAB PO SCH (07:22)
[2020-03-03] MEDS: HEPARIN SOD 5,000 UNIT/0.5 ML VIAL SQ SCH ×3 (07:23→23:53)
[2020-03-03] MEDS: carvediloL 6.25 MG TAB PO SCH ×2 (07:23→20:16)
--- NOTE | 2020-03-03 07:28 | XRay Report ---
XR chest 2V PA/lateral CLINICAL HISTORY: post his bundle BiV ICD PACEMAKER PLACEMENT COMPARISON STUDY: 02/26/2020 FINDINGS: There is a left subclavian pacer/defibrillator present. Electrode position appears unremark able. There is no pneumothorax. There is no overt failure. There are mild fibrotic changes present th e lung bases left greater than right. There is no lobar consolidation.[ IMPRESSION: No evidence of pneumothorax status post placement of a biventricular pacemaker/defibrilla tor. ACT 112: Negative or not required by law. Electronically signed by: Kali Medina M.D. 03/03/2020 7:27 AM
--- NOTE | 2020-03-03 11:22 | Cardiology Progress Note ---
Date of Service March 03, 2020 Assessment & Plan (1) Acute on chronic heart failure with reduced ejection fraction and diastolic dysfunction: (2) Cardiorenal syndrome: (3) NSVT (nonsustained ventricular tachycardia): (4) Acute on chronic renal insufficiency: (5) Chronic kidney disease, stage V: Results of a.m. labs discussed with patient. Recommend continued observation for additional 24 hours. Hold torsemide. Repeat BMP in a.m. Encouraged patient to modestly increase his oral hydration today. Recommendations discussed with nursing. Postprocedural activity restrictions reviewed. Avoid Aldactone, ASHLIE inhibitor, and ARB's. Continue hydralazine 10mg twice daily and isosorbide monohydrate. Subjective Patient seen and examined at the bedside. Feeling well post biventricular ICD implantation. Arm sling in place. Creatinine trending upward this morning. 50 cc of IV contrast given during procedure. Patient feels well without complaints. No recurrent ventricular tachycardia on telemetry. Remains in sinus rhythm. Review of Systems Review of Systems: All systems reviewed & are unremarkable except as noted in HPI & below Physical Exam Constitutional: well developed, well nourished and average body habitus; no acute distress Respiratory: normal respiratory effort; no respiratory distress, no labored breathing and no cough Auscultation: breath sounds present, no crackles, no rales, no rhonchi and no wheezes Cardiovascular: Rate/Rhythm: regular rate and regular rhythm Heart Sounds: normal S1 and normal S2; no murmur and no cardiac rub Vessels: no JVD Extremities: no edema Gastrointestinal (Abdomen): Inspection/Auscultation: abdomen normal to inspection and normal bowel sounds; abdomen not distended Percussion/Palpation: abdomen soft; abdomen nontender, no guarding and abdomen not rigid Musculoskeletal: Extremities: strength 5/5 throughout Skin: + wound (Left upper chest ICD dressing in place. No erythema or drainage.) Neurologic: CN's II-XI intact bilaterally and moves all extremities; no focal motor deficits Psychiatric: Mood: + irritable mood Results & Data Vital Signs (Past 12 Hours) Vital Signs Temp Pulse Resp BP Pulse Ox 03/03/20 07:17 36.7 C 60 19 115/62 95 03/03/20 02:55 36.5 C 59 L 19 115/61 100 (1) Cardiorenal syndrome Heart failure presence: with heart failure Hypertensive chronic kidney disease stage: stage 5 chronic kidney disease or end stage renal disease Qualified Code(s): I13.2 - Hypertensive heart and chronic kidney disease with heart failure and with stage 5 chronic kidney disease, or end stage renal disease
--- NOTE | 2020-03-03 11:32 | Nephrology Progress Note ---
Date of Service March 03, 2020 Assessment & Plan (1) Chronic kidney disease, stage V: Creatinine increased slightly from 2.5 to 3.1 mg/dL. Urine output acceptable. Remains on torsemide 20 mg daily. Volume status remains controlled. Hemodynamically stable throughout procedure yesterday. Electrolytes within normal limits. Medications remain appropriate for kidney function. No emergent indication for COFFEE BREWER. UA/microscopy to assess for casts. Bladder scan for PVR and possible post procedural urinary retention. Document I/O's and repeat metabolic profile tomorrow AM. Fluid restriction was removed at the patient's request. (2) CHF (congestive heart failure): Volume status reasonably controlled. No evidence of decompensated CHF. Adequate urine output. BP acceptable. POD #1 s/p BiV ICD placement. (3) Anemia: YONNY therapy deferred due to Hgb >10 and low [place]. Venofer 200 mg daily x 3 doses provided. (4) Ischemic cardiomyopathy: (5) Peripheral vascular disease: Admission and Anticipated Discharge Date Admission Date: February 25, 2020 Subjective No complications with pacer placement. Overall Keron feels well. Disappointed that discharge has been delayed. Breathing comfortably. No urinary complaints. No fevers or chills. Denies significant pain. Review of Systems Review of Systems: All systems reviewed & are unremarkable except as noted in HPI & below Physical Exam Constitutional: well developed; no acute distress Eyes: + anicteric sclerae ENMT: Mouth: no oral mucosal abnormality and oral mucous membranes not dry Neck: normal visual inspection and trachea midline Respiratory: normal respiratory effort Auscultation: lungs clear to auscultation bilaterally Cardiovascular: Rate/Rhythm: + bradycardic Heart Sounds: normal S1 and normal S2 Extremities: no edema Musculoskeletal: Extremities: no cyanosis and no clubbing L arm sling Skin: normal turgor Neurologic: Motor/Sensory: no tremor and no asterixis Results & Data ([facility]) Vital Signs (Past 12 Hours) Vital Signs Temp Pulse Resp BP Pulse Ox 03/03/20 07:17 36.7 C 60 19 115/62 95 03/03/20 02:55 36.5 C 59 L 19 115/61 100 Laboratory Results Laboratory Results - last 24 hr 03/03/20 03/03/20 05:56 11:05 Sodium 134 L Potassium 4.4 Chloride 102 Carbon Dioxide 24 Anion Gap 9.0 BUN 66 H Creatinine 3.19 H D Est Cr Clr Drug Dosing 21.0 Est GFR ( Amer) 22.9 Est GFR (Non-Af Amer) 19.8 BUN/Creatinine Ratio 20.8 H Glucose 93 Calcium 8.6 Urine Color Pending Urine Appearance Pending Urine pH Pending Ur Specific [place] Pending Urine Protein Pending Urine Glucose (UA) Pending Urine Ketones Pending Urine Blood Pending Urine Nitrite Pending Urine Bilirubin Pending Urine Urobilinogen Pending Ur Leukocyte Esterase Pending PG Care Time/CCT Total # of Minutes Spent Total Time Spent with Patient: Total time spent is greater than 50% in c oordination of care (as documented) at patient's floor/unit and/or counseling patient: Coding Level of Care Code 94648 Subseq Hosp Care Lvl 3 Diagnoses Chronic kidney disease, stage V N18.5 CHF (congestive heart failure) I50.9 Heart failure chronicity: acute on chronic Heart failure type: unspecified Anemia D64.9 Ischemic cardiomyopathy I25.5 Peripheral vascular disease I73.9 (1) CHF (congestive heart failure) Heart failure chronicity: acute on chronic Heart failure type: unspecified Qualified Code(s): I50.9 - Heart failure, unspecified
[2020-03-03 12:31] LABS: Appearance Urine Clear (Clear); Bacteria Urine Automated Negative (Negative); Bilirubin Urine Negative (Negative); Blood Urine Negative (Negative); Color Urine Yellow; Epithelial Cell Urine Auto 0-5 /lpf (0-5); Glucose Urine UA Negative (Negative); Ketones Urine Negative (Negative); Leukocyte Esterase Urine Negative (Negative); Nitrite Urine Negative (Negative); Protein Urine 1+ (Negative); RBC Urine Automated 0-4 /hpf (0-4); Specific Gravity Urine 1.013 (1.000-1.030); Urobilinogen Urine Negative (Negative); pH Urine 5.5 (4.5-7.5)
--- NOTE | 2020-03-03 16:43 | Hospitalist Progress Note ---
Date of Service March 03, 2020 Assessment & Plan (1) Acute hypoxemic respiratory failure: Keron Fall is a 60-year-old male with a past medical history of an STEMI and CAD status post PCI with MARY to LAD x3 in 12/04/2019 with residual CHF and reduced ejection fraction, CKD 3, hypertension, hyperlipidemia, COPD, and PVD who presented to the emergency department by ambulance after they were reportedly called for Mr. weber having shortness of breath. On arrival to the emergency department patient was unresponsive and did not respond to sternal rub by the emergency department physician and required intubation. Acute hypoxic respiratory failure Acute systolic CHF. -recurrent acute systolic CHF - appearing quite brittle due to low EF and CKD. diuresed, device placed 03/02. now appearing on the dry side of euvolemic (Cr would suggest a little dry) CKDV - given risks vs benefits - keep inpt to follow into tomorrow to allow for more dynamic management if his creat were to continue to worsen. holding diuretic. very delicate balance between wet and dry explained to pt Acute on Chronic Heart failure with reduced ejection fraction, CAD with recent 3X MARY to LAD in November 2019 no angina. med management as above, follow clinically, follow BMP Leukocytosis -likely reactive. normalized. Hypertension Antihypertensives as above - BP shows overall adequate control COPD Pending PFTs as outpatient - managing as presumed moderate COPD until then (anticholinergic and rescue inhaler); no breathing complaints today Peripheral vascular disease History of right common iliac to right femoral bypass in 1999, aortobifemoral bypass 06/2004 No signs of lower extremity ischemia on admission DVT prophylaxis: Heparin 5000 every 8 hours, pending evaluation of troponins and cardiac function as above dispo -home once Cr improving again (2) Congestive heart disease: (3) Ischemic cardiomyopathy: (4) Respiratory acidosis: (5) CAD (coronary artery disease): (6) Hypertension: (7) Hyperlipidemia: (8) Peripheral vascular disease: (9) COPD (chronic obstructive pulmonary disease): Admission and Anticipated Discharge Date Admission Date: February 25, 2020 Subjective physically feels ok- just very frustrated that he's not going home today. after discussions of risks/benefits and probabilities, as well as why it's more prudent to follow BMP into tomorrow rather than sending home w outpt labs - on the comparative risk of things going wrong - he then expresses understanding. pain at op site controlled no sob eating well Review of Systems Review of Systems: All systems reviewed & are unremarkable except as noted in HPI & below Physical Exam Physical Exam: gen aao pleasant nad heent nc at mmm breathing unlabored no accessory muscles good effort skin no rashes no pallor or icterus Results & Data Results & Data ([facility]) Vital Signs (Past 12 Hours) Vital Signs Temp Pulse Resp BP BP Pulse Ox 03/03/20 15:21 98.2 F 60 20 124/62 97 03/03/20 11:52 97.9 F 68 19 123/58 L 93 03/03/20 07:17 98.1 F 60 19 115/62 95 PG Care Time/CCT Total # of Minutes Spent Total Time Spent with Patient: Total time spent is greater than 50% in coordinat ion of care (as documented) at patient's floor/unit and/or counseling patient: Coding Level of Care Code 24006 Subseq Hosp Care Lvl 3 Diagnoses Acute hypoxemic respiratory failure J96.01 Congestive heart disease I50.9 Ischemic cardiomyopathy I25.5 Respiratory acidosis E87.2 CAD (coronary artery disease) I25.10 Coronary Disease-Associated Artery/Lesion type: [place] artery [place] vs. transplanted heart: [place] heart Associated angina: without angina Hypertension I10 Hyperlipidemia E78.5 Peripheral vascular disease I73.9 COPD (chronic obstructive pulmonary disease) J44.9 (1) CAD (coronary artery disease) Coronary Disease-Associated Artery/Lesion type: [place] artery [place] vs. transplanted heart: [place] heart Associated angina: without angina Qualified Code(s): I25.10 - Atherosclerotic heart disease of [place] coronary artery without angina pectoris
--- NOTE | 2020-03-03 18:58 | Operative Report (OR) ---
DATE OF OPERATION: 02/29/2020 PREOPERATIVE DIAGNOSES: Ischemic cardiomyopathy; left bundle branch block; chronic systolic heart failure, [place] [employer] class 3 and VT. POSTOPERATIVE DIAGNOSES: Ischemic cardiomyopathy; left bundle branch block; chronic systolic heart failure, [place] [employer] class 3 and VT. PROCEDURE: Biventricular implantable cardiac defibrillator rate responsive under fluoroscopic guidance along with peripheral venogram and coronary sinus venogram as well as electric intracardiac EKG mapping of the His bundle region. SURGEON: Mirta Benavidez DO. ASSISTANTS: None. ANESTHESIA: Monitored conscious sedation administered under my supervision by Aaliyah Bravo. Start time 8:54, end time 11:51. Total of 9 mg of Versed, 225 mcg of fentanyl. IV FLUIDS: 45 mL. CONTRAST: 40 mL. ANTIBIOTICS: 1 gram of Ancef. COMPLICATIONS: None. CONDITION: Stable. URINE OUTPUT: Not applicable. SPECIMENS: None. FINDINGS: See below. DRAINS: None. 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 He has known carotid bilateral bruits and renal artery stenosis and SMA stenosis, chronic kidney disease stage III-IV, hypertension, hyperlipidemia, tobacco use and osteoarthritis. He was recommended biventricular implantable cardiac defibrillator due to ischemic cardiomyopathy, left bundle-branch block and recurrent systolic heart failure. CONSENT: Consent was obtained prior to the patient going into the Electrophysiology Lab. The patient was informed of the risks, benefits and alternative procedure. Risks include but not limited to sudden cardiac ; cardiac arrhythmias; cerebrovascular accident; myocardial infarction; injury to the blood vessels, chamber of the heart, lung; bleeding and infection. The patient understood these risks and agreed with procedure as planned. Informed consent was obtained. DESCRIPTION OF THE PROCEDURE: The patient was brought into the Electrophysiology Lab in a fasting state. He was connected to continuous sculpture instructor. Timeout was performed to ensure patient identity and procedure correctly. The patient was prepped and draped over the left infraclavicular space in normal surgical standard fashion. Monitored conscious sedation was given throughout the procedure for the patient's comfort level. [place] precautions were maintained throughout the procedure. He received prophylactic antibiotics prior to incision. A 10 mL of 1% lidocaine, bupivacaine mixture were given in the left deltopectoral groove. Incision was made in left deltopectoral groove. Blunt dissection was performed down to identify the cephalic vein. The cephalic vein was identified, but it was tiny and I was not really able to pass a Glidewire through it. Then a peripheral venogram was performed using 10 mL of IV contrast diluted in 10 mL of saline followed by 20 mL flush to identify the axillary vein where I then did 2 venous axillary sticks without any problems. A guidewire was inserted without any resistance through both the sticks. Through the most proximal stick, I placed an 8-Salvadorean sheath and then removed the dilator and put a second guidewire in to allow for retained venous access. The sheath was removed. Then a 9.5-Salvadorean sheath was inserted over the retained guidewires in the more proximal stick into the axillary vein. The guidewire and dilator removed. Then the right ventricular defibrillator lead was advanced into the right ventricle and positioned in intraventricular apex under fluoroscopic guidance. There was adequate pacing and sensing thresholds and no diaphragmatic stimulation with high output pacing. The 9.5-Salvadorean sheath was peeled away and lead was fixated to pectoralis muscle using 0 silk suture. I ended up having to use a long 7-Salvadorean sheath passing out over the retained guidewire in the more proximal axillary stick. Then the dilator and guidewire were removed and the right atrial lead was ultimately positioned into right atrial appendage under fluoroscopic guidance. I did have to reposition it a couple of times. There was adequate pacing and sensing thresholds. There is no diaphragmatic stimulation with high output pacing. The 7-Salvadorean sheath was peeled away and lead was fixated to pectoralis muscle using 0 silk suture. Through the lateral axillary stick, a 9.5-Salvadorean sheath was advanced over the guidewire without any resistance. Guidewire and dilator were removed. Then a Medtronic coronary sinus MPX sheath was advanced over a Glidewire into the right atrium. Then the Glidewire and dilator were removed. Then, the coronary sinus was cannulated using a diagnostic EP Biosense Decapolar catheter. The MPX was then advanced into the coronary sinus over the EP catheter and a coronary sinus venogram was performed which identified a few branches higher up, but they were really more anteriorly positioned, no good posterolateral position, so I opted not to do a standard left ventricular lead on the coronary sinus and instead we did a His bundle lead. So, we set up to do the His bundle lead. The MPX sheath was removed and over the preformed Medtronic, His sheath was advanced over a Glidewire through the 9.5-Salvadorean sheath into the right atrium. The dilator and sheath were removed. Lead was then advanced through the His sheath and I performed an electrogram intracardiac mapping to identify the His bundle region. We identified a nice His bundle with the AH measuring 60 milliseconds, HV about 80 milliseconds. We had some decent capture unipolar, so then I opted to screw in the lead and the capture was still good with unipolar and bipolar, so ultimately the His sheath was then slit under fluoroscopic guidance. Then the 9.5-Salvadorean sheath was peeled away and lead was fixated to pectoralis muscle using 0 silk suture. A defibrillator pocket was created using blunt dissection over the pectoralis muscle within the pectoralis fascia. The pocket was flushed with copious amounts of bacitracin saline wash and inspected for hemostasis. The defibrillator was then attached to the leads making sure that the pins were in appropriate position, passed set screw and set screws were all tightened. Defibrillator was then placed in an antibiotic pouch followed then by being placed in the pocket, making sure that all the leads were lying flat beneath the device. The incision was closed in 3-layer fashion with 2-0 Vicryl interrupted suture, followed by 3-0 Vicryl interrupted suture, followed by 4-0 Monocryl running stitch, followed then by Dermabond and a Tegaderm and micropore dressing. EQUIPMENT: 1. The generator is a [employer] UTILITY SYSTEMS REPAIRER OPERATOR-D SureScan [id number], serial number [id number]. 2. The Tyrx pouch was reference number [id number], lot number [id number], expiration 03/04/2020. 3. Right atrial lead is Medtronic 5076-52 cm, serial number [id number]. 4. Right ventricular lead 6935M-62 cm, serial number [id number]. 5. His bundle lead is a Medtronic 3830-69 cm, serial number [id number]. INTRAOPERATIVE TESTIN. Right atrial lead: P waves 1.5 millivolts, impedance 437 ohms, threshold 0.6 volts at 0.5 milliseconds. 2. Right ventricular lead: R waves 13.8 millivolts, impedance 570 ohms, threshold 0.6 volts at 0.5 milliseconds. 3. The His bundle lead: His waves were 0.8 millivolts, impedance 456 ohms, threshold 2 volts at 1 millisecond. 4. The AH was 60 milliseconds, the HV was 80 milliseconds. FINAL MEASUREMENTS THROUGH THE DEVICE: 1. Right atrial lead: P waves 1.1 millivolts, impedance 456 ohms, threshold 0.5 volts at 0.4 milliseconds. 2. Right ventricular lead: R waves 14 millivolts, impedance 570 ohms, threshold 0.5 volts at 0.4 milliseconds. 3. The RV coil is 75 ohms. 4. The His bundle lead impedance 437 ohms, threshold 2 volts at 1 millisecond. 5. The [place] QRS measured to be 157 milliseconds. The His paced QRS was 82 milliseconds. FINAL PARAMETERS: DDDR 60/130. Right ventricular and right atrial leads amplitude is 3.5 volts, pulse width 0.4 milliseconds, sensitivity 0.3 millivolts. The His bundle lead is 4 millivolts and pulse width 1 millisecond. The VT monitor zone at 133 beats per minute for 32 detection intervals, the VT zone at 167 beats per minute for 16 detection intervals and VF zone at 200 beats per minute for 30 out of 40 detection intervals. IMPRESSION: Successful implantation of the biventricular His bundle rate responsive implantable cardiac defibrillator placed under fluoroscopic guidance along with a peripheral and coronary sinus venogram and intracardiac electrogram mapping of the His bundle region. PLAN: Monitor the patient overnight, 12-lead ECG, chest x-ray. He is not allowed to lift left elbow or left shoulder for 1 month. He cannot lift more than 10 pounds with the left arm for 2 weeks. He is to leave the dressing on and the area dry until his wound check next week at [facility], which will be on 03/10/2020, at 1:00 p.m. If he notices any swelling or any concerns, he is to call our office immediately. I attest to the content of the Intraoperative Record and any orders documented therein. Any exceptions are noted below. SELINA
[2020-03-03] MEDS: ACETAMINOPHEN 325 MG TAB PO PRN (20:14)
[2020-03-03] MEDS: ATORVASTATIN 40 MG TAB PO SCH (20:16)
[2020-03-04 04:00] VITALS: TEMP 97.7
[2020-03-04] MEDS: ACETAMINOPHEN 325 MG TAB PO PRN (06:49)
[2020-03-04 07:17] VITALS: BP 129/56; O2SAT 93
[2020-03-04] MEDS: ASPIRIN 81 MG ECTAB PO SCH (08:09)
[2020-03-04] MEDS: POTASSIUM CHLORIDE 20 MEQ TABCR PO SCH (08:09)
[2020-03-04] MEDS: ISOSORBIDE MONO EXTENDED REL 30 MG TABCR PO SCH (08:09)
[2020-03-04] MEDS: HydrALAZINE 10 MG TAB PO SCH (08:09)
[2020-03-04] MEDS: PANTOprazole 40 MG TAB PO SCH (08:09)
[2020-03-04] MEDS: CLOPIDOGREL BISULFATE 75 MG TAB PO SCH (08:10)
[2020-03-04] MEDS: HEPARIN SOD 5,000 UNIT/0.5 ML VIAL SQ SCH (08:10)
[2020-03-04] MEDS: carvediloL 6.25 MG TAB PO SCH (08:10)
[2020-03-04 08:30] LABS: Albumin Level 3.2 gm/dl (3.4-5.0); BUN Creatinine Ratio 23.7 (10-20); Calcium 8.7 mg/dl (8.5-10.1); Creatinine Clr Calc Pharmacy 23.3 ml/min; Est GFR (African American) 26.1; Est GFR (Non-African American) 22.5; Phosphorus 4.3 mg/dl (2.5-4.9); Potassium 4.8 mmol/L (3.5-5.1)
--- NOTE | 2020-03-04 10:09 | Nephrology Progress Note ---
Date of Service March 04, 2020 Assessment & Plan (1) Chronic kidney disease, stage V: Creatinine slightly improved. Urine output acceptable. UA +1 protein; microscopy +hyaline casts. Remains on torsemide 20 mg daily. Volume status well controlled. BP acceptable. Electrolytes within normal limits. Medications remain appropriate for kidney function. No emergent indication for UNDERWRITING CONSULTANT. From a nephrology perspective, Keron is stable for discharge with close outpatient follow up. Please have a renal profile obtained early next week. Keron should follow up with his roll line operator within the next 2 weeks. He may contact our office at [phone] with questions or concerns. In addition to sending follow up labs to his roll line operator at the [place], a copy can be sent to my office for review ([phone]). (2) CHF (congestive heart failure): Risk factor modification reviewed. (3) Anemia: YONNY therapy deferred due to Hgb >10 and low Tsat. Venofer 200 mg daily x 3 doses provided during admission. (4) Ischemic cardiomyopathy: (5) Peripheral vascular disease: Admission and Anticipated Discharge Date Admission Date: February 25, 2020 Subjective No acute events overnight. Keron feels well today. He denies significant pain. No fevers or chills. No urinary complaints. PVR 0. Appetite good. Breathing comfortably. Review of Systems Review of Systems: All systems reviewed & are unremarkable except as noted in HPI & below Physical Exam Physical Exam: Deferred due to COVID 19 pandemic Constitutional: no acute distress Cardiovascular: Rate/Rhythm: + bradycardic Extremities: no edema Results & Data ([facility]) Vital Signs (Past 12 Hours) Vital Signs Temp Pulse Pulse Resp BP Pulse Ox 03/04/20 07:15 36.5 C 63 22 129/56 L 93 03/04/20 07:00 61 03/04/20 03:59 36.5 C 61 18 133/63 100 03/03/20 23:15 36.6 C 67 16 135/68 100 03/03/20 23:00 74 Laboratory Results Laboratory Results - last 24 hr 03/03/20 03/04/20 11:05 07:42 Sodium 135 L Potassium 4.8 Chloride 102 Carbon Dioxide 24 Anion Gap 8.0 BUN 68 H Creatinine 2.86 H D Est Cr Clr Drug Dosing 23.3 Est GFR ( Amer) 26.1 Est GFR (Non-Af Amer) 22.5 BUN/Creatinine Ratio 23.7 H Glucose 94 Calcium 8.7 Phosphorus 4.3 Albumin 3.2 L Urine Color Yellow Urine Appearance Clear Urine pH 5.5 Ur Specific [place]ck[place] 1.013 Urine Protein 1+ H Urine Glucose (UA) Negative Urine Ketones Negative Urine Blood Negative Urine Nitrite Negative Urine Bilirubin Negative Urine Urobilinogen Negative Ur Leukocyte Esterase Negative Urine WBC (Auto) 1-5 Urine RBC (Auto) 0-4 U Hyaline Cast (Auto) 1-5 U Epithel Cells (Auto) 0-5 Urine Bacteria (Auto) Negative PG Care Time/CCT Total # of Minutes Spent Total Time Spent with Patient: Total time spent is greater than 50% in coordination of care (as documented) at patient's floor/unit and/or counseling patient: Coding Level of Care Code 74029 Subseq Hosp Care Lvl 3 Diagnoses Chronic kidney disease, stage V N18.5 CHF (congestive heart failure) I50.9 Heart failure chronicity: acute on chronic Heart failure type: unspecified Anemia D64.9 Ischemic cardiomyopathy I25.5 Peripheral vascular disease I73.9 (1) CHF (congestive heart failure) Heart failure chronicity: acute on chronic Heart failure type: unspecified Qualified Code(s): I50.9 - Heart failure, unspecified
[2020-03-04 10:37] VITALS: PULSE 94
--- NOTE | 2020-03-04 12:27 | Cardiology Progress Note ---
Date of Service March 04, 2020 Assessment & Plan (1) S/P ICD (internal cardiac defibrillator) procedure: (2) Acute on chronic heart failure with reduced ejection fraction and diastolic dysfunction: (3) Cardiorenal syndrome: (4) NSVT (nonsustained ventricular tachycardia): (5) Acute on chronic renal insufficiency: (6) Chronic kidney disease, stage V: Renal function improved this a.m. Continue current cardiovascular medications including isosorbide monohydrate, hydralazine, torsemide, carvedilol, aspirin, Plavix and atorvastatin. Postprocedural activity restrictions reviewed. Avoid Aldactone, ASHLIE inhibitor, and ARB's. Patient stable for discharge from a cardiovascular perspective. Outpatient follow-up and wound check scheduled for next 03/10/2020. Cardiology will sign off. Please call with questions. Subjective Patient seen examined the bedside. Denies chest pain or shortness of breath. No recurrent ventricular tachycardia on telemetry. Feeling well from a cardiovascular perspective. Creatinine trending downward. No orthopnea, PND, palpitations, lower extremity edema, claudication. Postoperative shoulder discomfort controlled. Offers no concerns/complaints at this time. Requesting discharge if possible. Review of Systems Review of Systems: All systems reviewed & are unremarkable except as noted in HPI & below Physical Exam Constitutional: well developed, well nourished and average body habitus; no acute distress Respiratory: normal respiratory effort; no respiratory distress, no labored breathing and no cough Auscultation: breath sounds present, no crackles, no rales, no rhonchi and no wheezes Cardiovascular: Rate/Rhythm: regular rate and regular rhythm Heart Sounds: normal S1 and normal S2; no murmur and no cardiac rub Vessels: no JVD Extremities: no edema Gastrointestinal (Abdomen): Inspection/Auscultation: abdomen normal to inspection and normal bowel sounds; abdomen not distended Percussion/Palpation: abdomen soft; abdomen nontender, no guarding and abdomen not rigid Musculoskeletal: Extremities: strength 5/5 throughout Skin: + wound (Left upper chest ICD dressing in place. No erythema or drainage.) Neurologic: CN's II-XI intact bilaterally and moves all extremities; no focal motor deficits Psychiatric: Mood: + irritable mood Results & Data Vital Signs (Past 12 Hours) Vital Signs Temp Pulse Pulse Pulse Resp BP Pulse Ox 03/04/20 10:34 36.5 C 94 H 63 22 129/56 L 93 03/04/20 07:15 36.5 C 63 22 129/56 L 93 03/04/20 07:00 61 03/04/20 03:59 36.5 C 61 18 133/63 100 (1) Cardiorenal syndrome Heart failure presence: with heart failure Hypertensive chronic kidney disease stage: stage 5 chronic kidney disease or end stage renal disease Qualified Code(s): I13.2 - Hypertensive heart and chronic kidney disease with heart failure and with stage 5 chronic kidney disease, or end stage renal disease
--- NOTE | 2020-03-04 18:16 | Discharge Summary ---
Date of Service March 04, 2020 Admission HPI Per Admitting Provider Keron Fall is a 60-year-old male with a past medical history of an STEMI and CAD status post PCI with MARY to LAD x3 in 12/04/2019 with residual CHF and reduced ejection fraction, CKD 3, hypertension, hyperlipidemia, COPD, and PVD who presented to the emergency department by ambulance after they were reportedly called for Mr. weber having shortness of breath. On arrival to the emergency department patient was unresponsive and did not respond to sternal rub by the emergency department physician. Emergency department physician was also informed that he had been having shortness of breath just prior to admission. Following assessment in the emergency department patient was intubated. Case was discussed with ICU provider and decision was made to admit to the ICU for further care. Of note patient had recently been admitted to the hospital from 02/16 to 02/20 for congestive heart failure due to dietary indiscretion. Call made to his primary contact Thao Middleton, patient's sister, to discuss his care and obtain collateral information. She reports that since his prior discharge he has had shortness of breath with ambulation but has not voiced any worsening or increasing symptoms. She notes that he has gotten portable oxygen at home and is on daytime and nighttime oxygen. She reports that he had not been having any cough, fever, sensation change, he had no recent travel, had not come into contact with any COVID positive patients, and had not been tested for COVID previous to his admission. She reports that he had not expressed any new symptoms or sudden illness on the phone in the previous 2 days. She notes that while he does not have a formal POA, his decision maker would likely be his daughter Munira Marinelli available at [phone]. Medical history: Reviewed in EMR Surgical history: Reviewed in EMR Medications: Reviewed in EMR Allergies: Reviewed in EMR Updated history unobtainable due to ETT. CODE STATUS: Full code on prior admission Principal Diagnosis acute on chronic systolic CHF, CKDV, cardiorenal syndrome Discharge Exam gen aao pleasant nad heent nc at mmm breathing unlabored no accessory muscles good effort skin no rashes no pallor or icterus L arm in sling no focal neuro deficits Discharge Data Allergies Allergy/AdvReac Type Severity Reaction Status Date / Time No Known Allergies Allergy Unknown Verified 02/25/20 00:53 Consultations 02/25/20 00:50 ED Decision to Admit Stat 02/25/20 03:32 Consult Case Management - Discharge Planning Routine 02/25/20 03:32 Consult Case Management - Discharge Planning Routine Consult Website Developer Routine 02/26/20 09:20 Consult Patient Rep / Service Excellence [Consult Patient Services] Routine 02/27/20 08:33 Consult Nephrology Routine 02/27/20 08:37 [facility] CHF Program Referral Routine 02/27/20 09:01 Consult Cardiology Routine Procedures Performed Operation Date: 03/02/20 08:00 Actual Procedures p ICD Insertion Single or Dual - Mirta Benavidez DO s Lead LV (No Priopr Implant) - Mirta Benavidez DO s Venogram, Unilateral - Mirta Benavidez DO Ordered Studies 03/02/20 07:15 EP Lab Images for PACS ONCE Hospital Course (1) Acute hypoxemic respiratory failure: Keron Fall is a 60-year-old male with a past medical history of an STEMI and CAD status post PCI with MARY to LAD x3 in 12/04/2019 with residual CHF and reduced ejection fraction, CKD 3, hypertension, hyperlipidemia, COPD, and PVD who presented to the emergency department by ambulance after they were reportedly called for Mr. weber having shortness of breath. On arrival to the emergency department patient was unresponsive and did not respond to sternal rub by the emergency department physician and required intubation. Acute hypoxic respiratory failure Acute systolic CHF. -recurrent acute systolic CHF - appearing quite brittle due to low EF and CKD. diuresed, device placed 03/02. now on dry side of euvolemic - stable for home, tosemide 20mg daily per cardiology, BMP early next week and cardiology f/u next week CKDV -creatinine back in baseline range Acute on Chronic Heart failure with reduced ejection fraction, CAD with recent 3X MARY to LAD in November 2019 no angina. med management as above, follow clinically, follow BMP as outpt Leukocytosis -likely reactive. normalized. Hypertension Antihypertensives as above - BP shows overall adequate control COPD Pending PFTs as outpatient - managing as presumed moderate COPD until then (anticholinergic and rescue inhaler) Peripheral vascular disease History of right common iliac to right femoral bypass in 1999, aortobifemoral bypass 06/2004 No signs of lower extremity ischemia on admission DVT prophylaxis: Heparin 5000 every 8 hours, pending evaluation of troponins and cardiac function as above dispo -home w close f/u (2) Congestive heart disease: (3) Ischemic cardiomyopathy: (4) Respiratory acidosis: (5) CAD (coronary artery disease): (6) Hypertension: (7) Hyperlipidemia: (8) Peripheral vascular disease: (9) COPD (chronic obstructive pulmonary disease): Total Time Total Time Spent Total Time Spent (In Minutes): <30 Discharge Plan Discharge Items Patient Disposition: Home - Home Health Services Reason For Visit: AHRF Discharge Diagnosis: recurrent congestive heart failure exacerbation Activity: As commented below Activity Comment: do not lift the left elbow over the left shoulder for 1 month Lifting: No more than 10 pounds Lifting Comment: do not lift more than 10 pounds with left arm for 2 weeks Bathing: Keep incision dry Bathing Comment: keep incision dry and dressing on until wound check on 03/09 Sexual Activity: After two weeks Driving/Machine Use: Resume 3 days after discharge Non-emergency contact: Primary Care Provider and Tack Puller Machine Call non-emergency contact if: you have any medication questions Follow-up/Referrals: Carmen Viramontes PA-C [Primary Care Provider] - Diet: Low Sodium (2gm) Addtl Attending Provider Instructions: Device and wound check on Saturday 03/10 at 1pm at [facility] F/u with Erlin Duncan at [facility] on Saturday 03/10 at 1pm Cardiology has changed your diuretic to torsemide -- so STOP the furosemide and take 20mg toresemide daily instead. you should have repeat labwork (BMP) drawn early next week (and then weekly thereafter for at least the short term but foreseeable future) to try to help better keep tabs on the balance between "wet and dry" - results to Erlin Duncan / [facility] cardiology everything in your prior discharge instructions about staying tight on sodium (less than 1500mg a day given how brittle things have been) and self monitoring (daily weights, symptoms, etc) continue to hold true - so keep that prior set of instructions as a reference as well as we discussed, a reasonable "rule of thumb" for getting seen right away with your breathing would be if you feel short of breath and it doesn't get better pretty quickly with a puff or two from your inhaler, you should get checked out. we also definitely want you on an anticholinergic inhaler (antimuscarinic, LAMA are the other names for that class of inhaler) - of which the spiriva is one, there are also incruse or tudorza as fairly comparable but different brands; and atrovent is similar as well (except that you have to take atrovent 4 times a day every day to really get the effect, which is tough to remember) -- so if the [facility] doesn't approve the spiriva, they should approve one of the other ones. Pending Studies at Discharge: No Stand-Alone Forms: My [facility], Smoking Cessation Medications and DC Order Prescriptions: New torsemide 10 mg Tablet 20 mg PO QAM Qty: 30 RF: 0 Continued aspirin 81 mg Tablet,Delayed Release (Dr/Ec) 81 mg PO QAM RF: 0 Spiriva with HandiHaler 18 mcg capsule, w/inhalation device 1 cap INH DAILY Qty: 30 RF: 0 albuterol sulfate 90 mcg/actuation HFA aerosol inhaler 1 puffs INH Q6H PRN (Reason: shortness of breath or wheezing) Qty: 18 RF: 0 (DME) Spacer for Inhaler Misc See Rx Instructions .ROUTE .MEDSUPPLY Qty: 1 RF: 0 isosorbide mononitrate 30 mg tablet extended release 24 hr 30 mg PO BID Qty: 60 RF: 0 atorvastatin 80 mg Tablet 80 mg PO HS RF: 0 carvedilol 12.5 mg Tablet 6.25 mg PO BID RF: 0 clopidogrel [Plavix] 75 mg Tablet 75 mg PO QAM RF: 0 amlodipine 10 mg Tablet 10 mg PO QAM RF: 0 pantoprazole 40 mg Tablet,Delayed Release (Dr/Ec) 40 mg PO QAM RF: 0 cholecalciferol (vitamin D3) 2,000 unit Tablet,Chewable 2,000 unit PO QAM RF: 0 hydralazine 25 mg Tablet 12.5 mg PO BID RF: 0 ferrous sulfate [iron] 325 mg (65 mg iron) tablet 325 mg PO QAM RF: 0 Discontinued furosemide [Lasix] 40 mg Tablet 40 mg PO QAM RF: 0 furosemide 20 mg tablet 20 mg PO TUTH RF: 0 Discharge Orders: Discharge Order (Routine); Ordered 03/04/20 Ordered By: Nikhil Toscano/Other Patient Handouts: Discharge Instructions for Implantable Cardioverter-Defibrillator ICD, Torsemide tablets Admission Data Admit Date/Time: 02/25/20 02:05 Attending Provider: Nikhil Rivers Admit Provider: Toan Ivey Primary Care Provider: Carmen Viramontes Other Providers: Jimena Arce ; Zaheer Grimm ; Heide Handy ; Carmen Schroeder ; Azam De La Cruz ; Maik Spencer Other Interventions: Discharge Summary Assessment (RN) Last Done: 03/04/20 10:34 DC Date/Time DO NOT enter until pt leaves facility: 03/04/20 12:05 Coding Level of Care Code D/C Day Management <30 mins Diagnoses Acute hypoxemic respiratory failure J96.01 Congestive heart disease I50.9 Ischemic cardiomyopathy I25.5 Respiratory acidosis E87.2 CAD (coronary artery disease) I25.10 Coronary Disease-Associated Artery/Lesion type: [place] artery [place] vs. transplanted heart: [place] heart Associated angina: without angina Hypertension I10 Hyperlipidemia E78.5 Peripheral vascular disease I73.9 COPD (chronic obstructive pulmonary disease) J44.9
== END 2020-03-04 12:05 | disposition home health service (06) | DRG 226 ==
LOC: ED 00:20 → SUATTDRO 02:05 → 1E 02:05 → 2S 02-27 14:17
PROC: EPB.ICD (2020-03-02 08:00)

== ENCOUNTER 2021-01-22 14:44 | Inpatient (IN) ==
[2021-01-22] MEDS ORDERED: ACETAMINOPHEN 500 MG TAB PO STA (15:13)
[2021-01-22] MEDS ORDERED: SODIUM CHLORIDE 0.9% 1000ML 1,000 ML IV SCH (15:15)
[2021-01-22] MEDS ORDERED: ALBUT/IPRATROP 3MG/0.5MG NEB 3 ML VIAL NEB STA (15:15)
[2021-01-22 16:10] LABS: Basophils # (auto) 0.02 K/uL (0-0.2); Basophils % (auto) 0.4 %; Hematocrit (blood only) 37.1 % (42-52); Hemoglobin 13.4 g/dL (14.0-18.0); Immature Granulocytes # (auto) 0.01 K/uL (0.00-0.02); Immature Granulocytes % (auto) 0.2 %; Lymphocytes # (auto) 0.51 K/uL (1.2-3.4); Lymphocytes % (auto) 9.9 %; Mean Corpuscular Hemoglobin 33.2 pg (25-34); Mean Corpuscular Hgb Conc 36.1 g/dL (32-36); Mean Corpuscular Volume 91.8 fL (80-100); Mean Platelet Volume 10.7 fL (7.4-10.4); Monocytes # (auto) 0.39 K/uL (0.11-0.59); Monocytes % (auto) 7.6 %; Neutrophils # (auto) 4.22 K/uL (1.4-6.5); Neutrophils % (auto) 81.9 %; Platelet Count 175 K/uL (130-400); RDW Coefficient of Variation 13.7 % (11.5-14.5); Red Blood Count 4.04 M/uL (4.7-6.1); White Blood Count 5.15 K/uL (4.8-10.8)
[2021-01-22 16:20] LABS: INR 1.2 (0.9-1.1); Partial Thromboplastin Time 27.4 Seconds (21.0-31.0); Prothrombin Time 12.2 Seconds (9.0-12.0)
--- NOTE | 2021-01-22 16:24 | XRay Report ---
XR chest 1V portable HISTORY: Dyspnea COMPARISON: Chest 06/02/2020. FINDINGS: The heart is mildly enlarged. There are small bilateral pleural effusions. Progressive inte rstitial and vascular thickening consistent with pulmonary edema. No pneumothorax. There is a left-si ded pacemaker/defibrillator. IMPRESSION: Interval development of pulmonary edema and small bilateral pleural effusions. ACT 112: Negative or not required by law. Electronically signed by: Uvaldo Bolaños M.D. 01/22/2021 4:23 PM
[2021-01-22 16:27] LABS: Albumin Level 3.3 gm/dl (3.4-5.0); BUN Creatinine Ratio 17.8 (10-20); Calcium 8.2 mg/dl (8.5-10.1); Creatinine Clr Calc Pharmacy 19.5 ml/min; Est GFR (African American) 18.5; Potassium 4.2 mmol/L (3.5-5.1)
[2021-01-22 16:30] LABS: Albumin Globulin Ratio 0.8 (0.9-2); Bilirubin,Total 0.9 mg/dl (0.2-1); Globulin 4.2 gm/dl (2.5-4.0); Total Protein 7.5 gm/dl (6.4-8.2)
[2021-01-22 16:58] LABS: Influenza A virus by PCR Negative (Neg); Influenza B virus by PCR Negative (Neg); RSV by PCR Negative (Neg)
[2021-01-22 17:38] LABS: SARS CoV2 RNA(COVID-19) InHosp POSITIVE (Negative)
--- NOTE | 2021-01-22 18:19 | History & Physical Report ---
Date of Service January 22, 2021 Assessment & Plan (1) Pneumonia due to COVID-19 virus: Not candidate for remdesivir due to EGFR less than 30. Initially held off steroids until O2 sats consistently < 94%, which occurred on the floor therefore start dexamethasone 6 mg IV daily for 10 days or until discharge. CRP added to labs to better assess progression of illness. (2) Diarrhea: This appears to be his main symptom of COVID as he has minimal O2 req uirement C. diff toxin to rule this out prior to loperamide use (3) Bilateral pleural effusion: Suspect chronic rather than acute CHF (4) Elevated procalcitonin: Plan to trend currently. No immediate need for antibiotics. If trending upwards consider coverage for secondary bacterial infection. (5) Elevated d-dimer: Concerning for PE in setting of COVID-19 PNA. IV heparin drip without bolus overnight Consider V/Q scan in AM (6) Acute hyponatremia: Suspect due torsemide use and dehydration rather than failure despite elevated BNP. 1L NSS given in ER (7) LINDSAY (acute kidney injury): High risk of needing dialysis given usually with poor renal function from cardiorenal syndrome. Will place kelley cath to closely monitor urine output BMP with AM labs Suspect his uremia is causing his anion gap without acidosis (8) Ischemic cardiomyopathy: LVEF 30-34% Continue carvedilol but hold losartan as below (9) Systolic CHF: Appears hypovolemic on admission despite BNP and XR findings (I suspect findings on CXR represent COVID-19 pneumonia rather than CHF given improvement with IV fluids in ER) Hold torsemide (10) CAD (coronary artery disease): Continue ASA, clopidogrel, carvedilol, atorvastatin (11) Hypertension: Continue carvedilol to avoid rebound tachycardia Continue ISMN to avoid angina Hold torsemide, hydralazine and losartan to allow improved perfusion (12) COPD (chronic obstructive pulmonary disease): No current exacerbation. (13) Elevated lactic acid level: Resolved with IV fluids given in ER (14) DVT prophylaxis: IV heparin drip as above Admission and Anticipated Discharge Date Admission Date: January 22, 2021 History of Present Illness Chief Complaint: Diarrhea, fatigue Primary Care Provider: Nixon Pollack MD Keron Fall is a 60-year-old male with congestive heart failure with ischemic cardiomyopathy, CKD stage IV (fistula placed but not on dialysis), PVD and COPD who presents to the ER with increasing fatigue and diarrhea for the last 8 days. He denies any abdominal pain. Diarrhea is loose but not watery. Associated nausea and vomiting. He has continued to take all his routine medications during this illness. He denies any shortness of breath although appears to be using accessory muscles in the room. He does report COVID-19 symptoms of myalgia, sore throat, diarrhea, nausea, vomiting. No cough, loss of taste or smell, nasal congestion, chest or abdominal pain. In the ER chest x-ray was concerning for interval development of pulmonary edema with small bilateral pleural effusions. SARS-CoV-2 PCR positive. And since his chest x-ray appeared to be consistent with COVID-19 pneumonia he was given 1L bolus NSS rather than diuresed despite elevated BNP. Diarrhea and dry mucous membranes would fit with a hypervolemic status. Allergies Allergy/AdvReac Type Severity Reaction Status Date / Time No Known Allergies Allergy Unknown Verified 01/22/21 17:46 Home Medications Medication Instructions Recorded Confirmed Type aspirin 81 mg PO QAM 11/03/19 01/22/21 History atorvastatin 80 mg PO HS 11/30/19 01/22/21 History cholecalciferol (vitamin D3) 2,000 unit PO QAM 12/24/19 01/22/21 History ferrous sulfate [iron] 325 mg PO QAM 02/16/20 01/22/21 History Spacer for Inhaler #1 ea 02/21/20 11/25/20 Rx albuterol sulfate 1 puffs INH Q6H PRN #18 gm 02/21/20 01/22/21 Rx isosorbide mononitrate 30 mg PO BID #60 tab 02/21/20 01/22/21 Rx carvedilol 6.25 mg tablet 6.25 mg PO BID 05/10/20 01/22/21 History hydralazine 50 mg tablet 50 mg PO TID 05/10/20 01/22/21 History pantoprazole 40 mg tablet,delayed 40 mg PO QAM 05/10/20 01/22/21 History release PreserVision AREDS-2 1 tab PO BID 07/13/20 01/22/21 History Spiriva with HandiHaler 1 cap INH QDL 07/13/20 01/22/21 History losartan 25 mg PO QAM 07/13/20 01/22/21 History torsemide 20 mg tablet 50 mg PO QAM tab 12/13/20 01/22/21 History acetaminophen [Tylenol] 325 mg PO QID PRN 01/22/21 01/22/21 History clopidogrel [Plavix] 75 mg PO DAILY 01/22/21 01/22/21 History Past Med/Surg History Medical History (Updated 01/23/21 @ 12:06 by Zheng Woods MD) AV fistula RIGHT UPPER ARM> NOT WORKING> REASON FOR PROCEDURE CAD (coronary artery disease) Chronic RCA occlusion; s/p three MARY 11/06/19 to LAD; residual 40% OM2 stenosis Chronic congestive heart failure 02/2020 [facility] - SOB and fluid around heart and lungs - had pacer placed. Chronic kidney disease, stage V no diaylsis currently. will see Dr Handy in August 2020. COPD (chronic obstructive pulmonary disease) DOES GET OCCASIONAL D.O.E COPD with emphysema Hx of pulmonary edema "flash" during endo/colon 02/2020 [facility]. Hyperlipidemia Hypertension Hyponatremia CHRONIC Iron deficiency anemia REASON FOR COLONOSCOPY/EGD 02/2020 Ischemic cardiomyopathy EJECTION FRACTION 30-34% Left bundle branch block Lung nodule monitoring Metabolic acidosis Nocturnal hypoxemia due to emphysema placed on CPAP, no home oxygen currently. NSTEMI (non-ST elevated myocardial infarction) 10/2019 Pacemaker placed 02/2020 [facility]. last checked JUL 2020> FOLLOWS IRENE DUNCAN Peripheral vascular disease WITH BL CAROTID BRUITS- RIGHT AND LEFT ICA 50-69% PER 08/2020 CAROTID DOPPLER SFA OCCLUSIONS SMA stenosis Surgical History Amputation of fifth toe of right foot 2014 H/O vascular surgery RIGHT FEM-POP BYBASS in 2014, AORTOBIFEMORAL BYPASS IN 2003, PRIOR RIGHT ILIOFEMORAL BYPASS IN 1999 (PATIENT STATE HE HAS HAD 4 VASCULAR SURGERIES) History of angioplasty Right LE approx 2014 History of cardiac cath S/P PCI TO THE PROXIMAL AND MID LAD WITH 3 DRUG-ELUTING STENTS NOVEMBER 06, 2019. RESIDUAL 40% 2ND OBTUSE MARGINAL STENOSIS. History of colonoscopy 02/2020 History of esophagogastroduodenoscopy (EGD) History of heart artery stent x3 Nov [address] [facility] Duncan. S/P cardiac pacemaker procedure 02/2020 [facility] Family History Other No family history of adverse response to anesthesia Social History Smoking Status: Former smoker packs per day: 2; Years Smoked: 45; Smoking End Date: 02/2020; Second Hand Exposure: No; Hx Alcohol Use: Yes Alcohol type: beer Hx Substance Use: No Preferred Language: Amharic Communication Ability: Effective [employer] Account Manager Required: No Beliefs That Will Affect Care: None marital status: Single Current Living Situation: Alone How many Children do You have: 0 Other Information That Helps Us Care for You: No Feels Safe at Home: Yes Safety Concerns: Feels Safe At This Time Assistive Devices: Denture - Upper, Glasses and Hearing Aid - Bilateral Assistive Devices Comment: glasses with patient Review of Systems Review of Systems: All systems reviewed & are unremarkable except as noted in HPI & below Constitutional: + fatigue Gastrointestinal: + nausea and + diarrhea/loose stools; no abdominal pain Physical Exam Constitutional: well developed; + not well nourished and no acute distress Eyes: PERRL, conjunctivae normal, anicteric sclerae Neck: trachea midline, no thyromegaly Respiratory: normal respiratory effort, lungs clear to auscultation + retractions, + uses accessory muscles and able to speak in complete sentences; no cough, normal respiratory pattern, expiratory phase not prolonged and no audible wheezes Auscultation: no diminished lung sounds, no crackles and no wheezes Cardiovascular: Rate/Rhythm: regular rate and regular rhythm Heart Sounds: no murmur Vessels: no JVD Extremities: normal capillary refill and + pedal edema (Trace pretibial, equal bilaterally); no calf tenderness Gastrointestinal (Abdomen): Inspection/Auscultation: normal bowel sounds; abdomen not distended Percussion/Palpation: abdomen soft; abdomen nontender, no guarding and abdomen not rigid Musculoskeletal: no cyanosis or clubbing, extremities motor strength 5/5 Skin: no rashes, warm and dry Neurologic: moves all extremities and awake; no focal motor deficits and not confused Speech / Cognition: normal speech Motor/Sensory: no tremor and no pronator drift Psychiatric: A+Ox3, euthymic affect Results & Data Results & Data ([facility]) Vital Signs (Past 12 Hours) Vital Signs Temp Pulse Pulse Resp BP BP Pulse Ox 01/22/21 18:01 97 H 29 H 131/82 95 01/22/21 17:10 94 H 90 01/22/21 17:00 94 H 92 01/22/21 16:50 94 H 92 01/22/21 16:40 95 H 23 01/22/21 16:30 97 H 90 01/22/21 16:20 98 H 24 90 01/22/21 16:10 100 H 16 98 01/22/21 16:07 102 H 22 92 01/22/21 16:00 103 H 91 01/22/21 15:50 101 H 24 91 01/22/21 15:40 102 H 92 01/22/21 15:37 93 01/22/21 15:30 106 H 01/22/21 15:26 105 H 92 01/22/21 15:23 105 H 129/76 92 01/22/21 14:52 38.0 C H 112 H 16 129/81 89 L Diagnostic Findings XR chest 1V portable IMPRESSION: Interval development of pulmonary edema and small bilateral pleural effusions. Medications Administered ER medications given: NSS 1 hour bolus Acetaminophen 1 g p.o. DuoNeb 3 mL ECG Indication: weakness Rate (beats per minute): 103 Findings: + paced rhythm (Atrial sensed); no acute ischemic change Comparison ECG Date: from (June 02, 2020) Change: no significant change Code Status & VTE Plan Code Status Full VTE Prophylaxis Plan VTE Prophylaxis will be ordered: Yes PG Care Time/CCT Total # of Minutes Spent Total Time Spent with Patient: Total time spent is greater than 50% in coordination of care (as documented) at patient's floor/unit and/or counseling patient: Coding Level of Care Code 31627 Initial Inpt Care Lvl 3 Diagnoses Pneumonia due to COVID-19 virus U07.1; J12.82 Diarrhea R19.7 Bilateral pleural effusion J90 Elevated procalcitonin R79.89 Elevated d-dimer R79.89 Acute hyponatremia E87.1 LINDSAY (acute kidney injury) N17.9 Ischemic cardiomyopathy I25.5 Systolic CHF I50.22 Heart failure chronicity: chronic CAD (coronary artery disease) I25.10 Associated angina: without angina Coronary Disease-Associated Artery/Lesion type: [place] artery [place] vs. transplanted heart: [place] heart Hypertension I10 Hypertension type: essential hypertension COPD (chronic obstructive pulmonary disease) J44.9 Elevated lactic acid level R79.89 DVT prophylaxis Z29.9 (1) Systolic CHF Heart failure chronicity: chronic Qualified Code(s): I50.22 - Chronic systolic (congestive) heart failure (2) CAD (coronary artery disease) Associated angina: without angina Coronary Disease-Associated Artery/Lesion type: [place] artery [place] vs. transplanted heart: [place] heart Qualified Code(s): I25.10 - Atherosclerotic heart disease of [place] coronary artery without angina pectoris (3) Hypertension Hypertension type: essential hypertension Qualified Code(s): I10 - Essential (primary) hypertension
[2021-01-22 22:07] LABS: BUN Creatinine Ratio 18.8 (10-20); Blood Urea Nitrogen 68 mg/dl (7-18); Calcium 8.1 mg/dl (8.5-10.1); Carbon Dioxide 15 mmol/L (21-32); Chloride 96 mmol/L (98-107); Creatinine Clr Calc Pharmacy 20.4 ml/min; Est GFR (African American) 19.6; Est GFR (Non-African American) 16.9; Glucose 100 mg/dl (70-99); Potassium 3.8 mmol/L (3.5-5.1); Sodium 127 mmol/L (136-145)
[2021-01-22 22:12] LABS: C Reactive Protein 5.81 mg/dl (0-0.29); NT Pro B Type Natriuretic Pept > 35000 pg/ml (0-900)
[2021-01-22 22:37] LABS: D Dimer 6950 ug/L FEU (0-500)
[2021-01-22] MEDS: ATORVASTATIN 40 MG TAB PO SCH (22:40)
[2021-01-22] MEDS: CEROVITE ADV FORMULA TAB PO SCH (22:41)
[2021-01-22] MEDS: carvediloL 6.25 MG TAB PO SCH (22:43)
--- NOTE | 2021-01-22 23:04 | Emergency Department Note ---
Impression & Plan Pneumonia due to 2019 novel coronavirus, CRF (chronic renal failure), Elevated lactic acid level ED Provider Note NAME: JULIAN ARGUETA AGE: 60 SEX: M ARRIVES VIA: Walk-In INFORMANT: Patient ED PROVIDER(S): Maki Atkinson MD CHIEF COMPLAINT: Cough, SOB, diarrhea PLAN: Disposition: inpatient Condition: Fair Referral: Hospitalist MEDICAL DECISION MAKING: This pt was evaluated and appeared to be in no distress. IV access was obtained and lab work was drawn. Pt was placed on the color television console monitor and noted to be in a paced rhythm. CXR was performed and was read as vascular congestion, however pt was known to be COVID + and did not present in fluid overload. Lab work is c/w ESRD with creatinine of 3.8 and stable K+ of 4.2. Pt's lactate was elevated, IVF were initiated. Blood cx pending. Acetaminophen and a duoneb tx were given. Given the pt's extensive comorbidities, elevated lactate and COVID infection, he was d/w the [facility] hospitalist service for admission and further management. Triage Nursing notes reviewed. Prior medical records reviewed. Vital Signs: reviewed and remarkable for temp 38.0, mild RA hypoxia. Differential diagnosis: Viral syndrome/COVID, otitis, pharyngitis, pneumonia, influenza, meningitis, urinary tract infection, sepsis, bacteremia, as well as other pathologies. ER treatment provided: IVF acetaminophen duoneb Diagnostics interpreted by me: ECG: atrial sensed and ventricularly paced at 103 bpm. Prolonged QT at 516. No PVC, no PAC. When compared to 06/02/20 rate has increased by 39 bpm, QTc has lengthened. Cardiac Monitoring: and order for cardiac monitoring was placed and pt is noted to be in a paced rhythm at 84 bpm. Laboratory studies: See below Imaging studies: [facility], [id number] XRay Report Patient: JULIAN ARGUETA EAdmit Date: 01/22/21MR#: [id number]: [address]Acct ID:[id number]: Date: 1960[facility] Zip: [place] [address]Evp: 60Location: EDSex: MRoom/Bed:Att Phy:Diagnosis: dehydratedPri Phy: Nixon Pollack MDService Date: 01/22/21Fa Phy:Interpreting Phy: Uvaldo Bolaños MDAdmit Phy: Ordering Phy: Maki Atkinson M.D. cc: ~ XR chest 1V portable HISTORY: Dyspnea COMPARISON: Chest 06/02/2020. FINDINGS: The heart is mildly enlarged. There are small bilateral pleural effusions. Progressive interstitial and vascular thickening consistent with pulmonary edema. No pneumothorax. There is a left-sided pacemaker/defibrillator. IMPRESSION: Interval development of pulmonary edema and small bilateral pleural effusions. ACT 112: Negative or not required by law. Electronically signed by: Uvaldo Bolaños M.D. 01/22/2021 4:23 PM Dictated: 01/22/211621Transcribed: 01/22/211621 Consultation(s): hospitalist HPI: 60/M arrives for evaluation of SOB, cough, diarrhea and fatigue x 8 days. Pt states he is dehydrated d/t his diarrhea. He has been drinking fluids, but he nauseated and his appetite is down. He denies known fevers. Pt has h/o smoking but quit when he has a heart attack in [facility] last year. He suffers from COPD, but does not wear oxygen at home. Pt does have h/o renal failure and had a fistula placed in the RUE which failed. He now has a "fake tube" (graft) in same location. He does not currently receive dialysis. ROS: See above HPI for pertinent positives & negatives. A total of 10 systems reviewed and were otherwise negative. PAST MEDICAL HISTORY:See Below PAST SURGICAL HISTORY:See Below FAMILY HISTORY:See Below SOCIAL HISTORY:See Below HOME MEDICATIONS:See Below ALLERGIES:See Below VITALS:See Below PHYSICAL EXAMINATION: Vital signs reviewed. General: Chronically ill-appearing 60 yo male, in no distress. HEENT: No scleral icterus, PERRLA, neck supple. Atraumatic. Cardiovascular: Regular rate and rhythm, no extra sounds. Pulmonary: Coarse BS to auscultation bilaterally, moist cough, slight increased work of breathing, on RA Abdomen: Soft, nontender, nondistended, positive bowel sounds. Musculoskeletal: Atraumatic, no peripheral edema. Neurologic: Patient awake alert and oriented x 3 Skin: Warm, dry, no rash Maki Atkinson MD Past Med/Surg History Medical History AV fistula RIGHT UPPER ARM> NOT WORKING> REASON FOR PROCEDURE CAD (coronary artery disease) Chronic RCA occlusion; s/p three MARY 11/06/19 to LAD; residual 40% OM2 stenosis Chronic congestive heart failure 02/2020 [facility] - SOB and fluid around heart and lungs - had pacer placed. Chronic kidney disease, stage V no diaylsis currently. will see Dr Handy in August 2020. COPD (chronic obstructive pulmonary disease) DOES GET OCCASIONAL D.O.E COPD with emphysema Hx of pulmonary edema "flash" during endo/colon 02/2020 [facility]. Hyperlipidemia Hypertension Hyponatremia CHRONIC Iron deficiency anemia REASON FOR COLONOSCOPY/EGD 02/2020 Ischemic cardiomyopathy EJECTION FRACTION 30-34% Left bundle branch block Lung nodule monitoring Metabolic acidosis Nocturnal hypoxemia due to emphysema placed on CPAP, no home oxygen currently. NSTEMI (non-ST elevated myocardial infarction) 10/2019 Pacemaker placed 02/2020 [facility]. last checked JUL 2020> FOLLOWS IRENE BUSBY Peripheral vascular disease WITH BL CAROTID BRUITS- RIGHT AND LEFT ICA 50-69% PER 08/2020 CAROTID DOPPLER SFA OCCLUSIONS SMA stenosis Surgical History Amputation of fifth toe of right foot 2014 H/O vascular surgery RIGHT FEM-POP BYBASS in 2014, AORTOBIFEMORAL BYPASS IN 2003, PRIOR RIGHT ILIOFEMORAL BYPASS IN 1999 (PATIENT STATE HE HAS HAD 4 VASCULAR SURGERIES) History of angioplasty Right LE approx 2014 History of cardiac cath S/P PCI TO THE PROXIMAL AND MID LAD WITH 3 DRUG-ELUTING STENTS NOVEMBER 06, 2019. RESIDUAL 40% 2ND OBTUSE MARGINAL STENOSIS. History of colonoscopy 02/2020 History of esophagogastroduodenoscopy (EGD) History of heart artery stent x3 Nov [address] [facility] [address] Busby. 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 Beliefs That Will Affect Care: None marital status: Single Current Living Situation: Alone How many Children do You have: 0 Other Information That Helps Us Care for You: No Feels Safe at Home: Yes Safety Concerns: Feels Safe At This Time Assistive Devices: Glasses and Oxygen - Continuous Assistive Devices Comment: glasses with patient Allergies Allergies Allergy/AdvReac Type Severity Reaction Status Date / Time No Known Allergies Allergy Unknown Verified 01/22/21 17:46 Home Meds Home Medications Medication Instructions Recorded Confirmed aspirin 81 mg PO QAM 11/03/19 01/22/21 atorvastatin 80 mg PO HS 11/30/19 01/22/21 cholecalciferol (vitamin D3) 2,000 unit PO QAM 12/24/19 01/22/21 ferrous sulfate [iron] 325 mg PO QAM 02/16/20 01/22/21 carvedilol 6.25 mg tablet 6.25 mg PO BID 05/10/20 01/22/21 hydralazine 50 mg tablet 50 mg PO TID 05/10/20 01/22/21 pantoprazole 40 mg tablet,delayed 40 mg PO QAM 05/10/20 01/22/21 release PreserVision AREDS-2 1 tab PO BID 07/13/20 01/22/21 Spiriva with HandiHaler 1 cap INH QDL 07/13/20 01/22/21 losartan 25 mg PO QAM 07/13/20 01/22/21 torsemide 20 mg tablet 50 mg PO QAM tab 12/13/20 01/22/21 acetaminophen [Tylenol] 325 mg PO QID PRN 01/22/21 01/22/21 clopidogrel [Plavix] 75 mg PO DAILY 01/22/21 01/22/21 Previous Rx's Medication Instructions Recorded Spacer for Inhaler #1 ea 02/21/20 albuterol sulfate 1 puffs INH Q6H PRN #18 gm 02/21/20 isosorbide mononitrate 30 mg PO BID #60 tab 02/21/20 Results & Data (ED) Vital Signs Vital Signs - 24 hr 01/22/21 14:52 01/22/21 15:23 01/22/21 15:26 Temperature 38.0 C H Temperature Source Temporal Artery Scan Pulse Rate 112 H 105 H 105 H Pulse Rate [Apical] Pulse Rate from SpO2 Sensor 105 H 105 H Pulse Rhythm Regular Pulse Strength Normal Respiratory Rate 16 Respiratory Effort / Characteristics Non-Labored Respiratory Depth Normal Respiratory Pattern Regular Blood Pressure 129/81 129/76 Blood Pressure [Right Arm] Blood Pressure Mean 97 93 Blood Pressure Mean [Right Arm] Blood Pressure Position Sitting Pulse Oximetry 89 L 92 92 Oxygen Delivery Method Room Air Sepsis Recent Fever Within 48 Hours No Sepsis New/Unexplained Change in Mental Status N/A Sepsis Action Taken by Nursing No Action Required 01/22/21 15:30 01/22/21 15:37 01/22/21 15:40 Temperature Temperature Source Pulse Rate 106 H 102 H Pulse Rate [Apical] Pulse Rate from SpO2 Sensor 103 H Pulse Rhythm Pulse Strength Respiratory Rate Respiratory Effort / Characteristics Respiratory Depth Respiratory Pattern Blood Pressure Blood Pressure [Right Arm] Blood Pressure Mean Blood Pressure Mean [Right Arm] Blood Pressure Position Pulse Oximetry 93 92 Oxygen Delivery Method Room Air Sepsis Recent Fever Within 48 Hours Sepsis New/Unexplained Change in Mental Status Sepsis Action Taken by Nursing 01/22/21 15:50 01/22/21 16:00 01/22/21 16:07 Temperature Temperature Source Pulse Rate 101 H 103 H Pulse Rate [Apical] 102 H Pulse Rate from SpO2 Sensor 101 H 103 H Pulse Rhythm Pulse Strength Respiratory Rate 24 22 Respiratory Effort / Characteristics Non-Labored Spontaneous Respiratory Depth Respiratory Pattern Blood Pressure Blood Pressure [Right Arm] Blood Pressure Mean Blood Pressure Mean [Right Arm] Blood Pressure Position Pulse Oximetry 91 91 92 Oxygen Delivery Method Room Air Sepsis Recent Fever Within 48 Hours Sepsis New/Unexplained Change in Mental Status Sepsis Action Taken by Nursing 01/22/21 16:10 01/22/21 16:20 01/22/21 16:30 Temperature Temperature Source Pulse Rate 100 H 98 H 97 H Pulse Rate [Apical] Pulse Rate from SpO2 Sensor 99 H 98 H 96 H Pulse Rhythm Pulse Strength Respiratory Rate 16 24 Respiratory Effort / Characteristics Respiratory Depth Respiratory Pattern Blood Pressure Blood Pressure [Right Arm] Blood Pressure Mean Blood Pressure Mean [Right Arm] Blood Pressure Position Pulse Oximetry 98 90 90 Oxygen Delivery Method Sepsis Recent Fever Within 48 Hours Sepsis New/Unexplained Change in Mental Status Sepsis Action Taken by Nursing 01/22/21 16:40 01/22/21 16:50 01/22/21 17:00 Temperature Temperature Source Pulse Rate 95 H 94 H 94 H Pulse Rate [Apical] Pulse Rate from SpO2 Sensor 96 H 94 H 94 H Pulse Rhythm Pulse Strength Respiratory Rate 23 Respiratory Effort / Characteristics Respiratory Depth Respiratory Pattern Blood Pressure Blood Pressure [Right Arm] Blood Pressure Mean Blood Pressure Mean [Right Arm] Blood Pressure Position Pulse Oximetry 92 92 Oxygen Delivery Method Sepsis Recent Fever Within 48 Hours Sepsis New/Unexplained Change in Mental Status Sepsis Action Taken by Nursing 01/22/21 17:10 01/22/21 17:20 01/22/21 17:30 Temperature Temperature Source Pulse Rate 94 H 92 H 91 H Pulse Rate [Apical] Pulse Rate from SpO2 Sensor 94 H 91 H 91 H Pulse Rhythm Pulse Strength Respiratory Rate 21 25 H Respiratory Effort / Characteristics Respiratory Depth Respiratory Pattern Blood Pressure Blood Pressure [Right Arm] Blood Pressure Mean Blood Pressure Mean [Right Arm] Blood Pressure Position Pulse Oximetry 90 92 94 Oxygen Delivery Method Sepsis Recent Fever Within 48 Hours Sepsis New/Unexplained Change in Mental Status Sepsis Action Taken by Nursing 01/22/21 17:40 01/22/21 17:50 01/22/21 18:00 Temperature Temperature Source Pulse Rate 93 H 95 H 98 H Pulse Rate [Apical] Pulse Rate from SpO2 Sensor 90 Pulse Rhythm Pulse Strength Respiratory Rate 18 27 H 11 L Respiratory Effort / Characteristics Respiratory Depth Respiratory Pattern Blood Pressure Blood Pressure [Right Arm] Blood Pressure Mean Blood Pressure Mean [Right Arm] Blood Pressure Position Pulse Oximetry 90 Oxygen Delivery Method Sepsis Recent Fever Within 48 Hours Sepsis New/Unexplained Change in Mental Status Sepsis Action Taken by Nursing 01/22/21 18:01 01/22/21 18:02 01/22/21 18:10 Temperature Temperature Source Pulse Rate 95 H 89 Pulse Rate [Apical] 97 H Pulse Rate from SpO2 Sensor Pulse Rhythm Pulse Strength Respiratory Rate 29 H 19 24 Respiratory Effort / Characteristics Respiratory Depth Respiratory Pattern Blood Pressure 131/82 Blood Pressure [Right Arm] 131/82 Blood Pressure Mean 98 Blood Pressure Mean [Right Arm] 98 Blood Pressure Position Pulse Oximetry 95 Oxygen Delivery Method Sepsis Recent Fever Within 48 Hours Sepsis New/Unexplained Change in Mental Status Sepsis Action Taken by Nursing 01/22/21 18:20 01/22/21 18:30 01/22/21 18:40 Temperature Temperature Source Pulse Rate 91 H 88 90 Pulse Rate [Apical] Pulse Rate from SpO2 Sensor 88 90 Pulse Rhythm Pulse Strength Respiratory Rate 32 H 30 H 31 H Respiratory Effort / Characteristics Respiratory Depth Respiratory Pattern Blood Pressure Blood Pressure [Right Arm] Blood Pressure Mean Blood Pressure Mean [Right Arm] Blood Pressure Position Pulse Oximetry 90 90 Oxygen Delivery Method Sepsis Recent Fever Within 48 Hours Sepsis New/Unexplained Change in Mental Status Sepsis Action Taken by Nursing 01/22/21 18:50 01/22/21 19:00 01/22/21 19:10 Temperature Temperature Source Pulse Rate 89 88 87 Pulse Rate [Apical] Pulse Rate from SpO2 Sensor 89 88 87 Pulse Rhythm Pulse Strength Respiratory Rate 28 H 31 H 28 H Respiratory Effort / Characteristics Respiratory Depth Respiratory Pattern Blood Pressure Blood Pressure [Right Arm] Blood Pressure Mean Blood Pressure Mean [Right Arm] Blood Pressure Position Pulse Oximetry 93 93 92 Oxygen Delivery Method Sepsis Recent Fever Within 48 Hours Sepsis New/Unexplained Change in Mental Status Sepsis Action Taken by Nursing 01/22/21 19:20 01/22/21 19:30 01/22/21 19:40 Temperature Temperature Source Pulse Rate 86 89 87 Pulse Rate [Apical] Pulse Rate from SpO2 Sensor 86 89 87 Pulse Rhythm Pulse Strength Respiratory Rate 29 H 22 26 H Respiratory Effort / Characteristics Respiratory Depth Respiratory Pattern Blood Pressure Blood Pressure [Right Arm] Blood Pressure Mean Blood Pressure Mean [Right Arm] Blood Pressure Position Pulse Oximetry 95 94 94 Oxygen Delivery Method Sepsis Recent Fever Within 48 Hours Sepsis New/Unexplained Change in Mental Status Sepsis Action Taken by Jail Medications Current Medication List: was personally reviewed by me Laboratory Data Attestation: I reviewed the patient's lab results. Result diagrams: 01/23/21 07:11 01/24/21 05:35 Lab Results 01/22/21 01/22/21 01/22/21 Range/Units 15:27 15:27 15:40 WBC (4.8-10.8) K/uL RBC (4.7-6.1) M/uL Hgb (14.0-18.0) g/dL Hct (42-52) % MCV (80-100) fL MCH (25-34) pg MCHC (32-36) g/dL RDW Std Deviation (36.4-46.3) fL RDW Coeff of Monika (11.5-14.5) % Plt Count (130-400) K/uL MPV (7.4-10.4) fL Immature Gran % (Auto) % Neut % (Auto) % Lymph % (Auto) % [place] % (Auto) % Eos % (Auto) % Baso % (Auto) % Neut # (Auto) (1.4-6.5) K/uL Lymph # (Auto) (1.2-3.4) K/uL [place] # (Auto) (0.11-0.59) K/uL Eos # (Auto) (0-0.5) K/uL Baso # (Auto) (0-0.2) K/uL Immature Gran # (Auto) (0.00-0.02) K/uL PT (9.0-12.0) Seconds INR (0.9-1.1) APTT (21.0-31.0) Seconds PTT Ratio Sodium 125 L (136-145) mmol/L Potassium 4.2 (3.5-5.1) mmol/L Chloride 93 L (98-107) mmol/L Carbon Dioxide 15 L (21-32) mmol/L Anion Gap 16.0 H (3-11) BUN 68 H (7-18) mg/dl Creatinine 3.80 H (0.6-1.4) mg/dl Est Cr Clr Drug Dosing 19.5 ml/min Est GFR ( Amer) 18.5 Est GFR (Non-Af Amer) 16.0 BUN/Creatinine Ratio 17.8 (10-20) Glucose 100 H (70-99) mg/dl Lactate (0.4-2.0) mmol/L Calcium 8.2 L (8.5-10.1) mg/dl Magnesium 2.0 (1.8-2.4) mg/dl Total Bilirubin 0.9 (0.2-1) mg/dl AST 49 H (15-37) U/L ALT 26 (12-78) U/L Alkaline Phosphatase 81 (45-117) U/L Total Protein 7.5 (6.4-8.2) gm/dl Albumin 3.3 L (3.4-5.0) gm/dl Globulin 4.2 H (2.5-4.0) gm/dl Albumin/Globulin Ratio 0.8 L (0.9-2) COVID-19 Eval Order CovFluRsv at [facility] SARS-CoV-2 (PCR) POSITIVE A* (Negative) Influenza Type A (PCR) Negative (Neg) Influenza Type B (PCR) Negative (Neg) RSV (RT-PCR) Negative (Neg) 01/22/21 01/22/21 01/22/21 Range/Units 15:40 15:40 15:40 WBC 5.15 (4.8-10.8) K/uL RBC 4.04 L (4.7-6.1) M/uL Hgb 13.4 L (14.0-18.0) g/dL Hct 37.1 L (42-52) % MCV 91.8 (80-100) fL MCH 33.2 (25-34) pg MCHC 36.1 H (32-36) g/dL RDW Std Deviation 46.0 (36.4-46.3) fL RDW Coeff of Monika 13.7 (11.5-14.5) % Plt Count 175 (130-400) K/uL MPV 10.7 H (7.4-10.4) fL Immature Gran % (Auto) 0.2 % Neut % (Auto) 81.9 % Lymph % (Auto) 9.9 % [place] % (Auto) 7.6 % Eos % (Auto) 0.0 % Baso % (Auto) 0.4 % Neut # (Auto) 4.22 (1.4-6.5) K/uL Lymph # (Auto) 0.51 L (1.2-3.4) K/uL [place]osa # (Auto) 0.39 (0.11-0.59) K/uL Eos # (Auto) 0.00 (0-0.5) K/uL Baso # (Auto) 0.02 (0-0.2) K/uL Immature Gran # (Auto) 0.01 (0.00-0.02) K/uL PT 12.2 H (9.0-12.0) Seconds INR 1.2 H (0.9-1.1) APTT 27.4 (21.0-31.0) Seconds PTT Ratio 1.0 Sodium (136-145) mmol/L Potassium (3.5-5.1) mmol/L Chloride (98-107) mmol/L Carbon Dioxide (21-32) mmol/L Anion Gap (3-11) BUN (7-18) mg/dl Creatinine (0.6-1.4) mg/dl Est Cr Clr Drug Dosing ml/min Est GFR ( Amer) Est GFR (Non-Af Amer) BUN/Creatinine Ratio (10-20) Glucose (70-99) mg/dl Lactate 2.5 H* (0.4-2.0) mmol/L Calcium (8.5-10.1) mg/dl Magnesium (1.8-2.4) mg/dl Total Bilirubin (0.2-1) mg/dl AST (15-37) U/L ALT (12-78) U/L Alkaline Phosphatase (45-117) U/L Total Protein (6.4-8.2) gm/dl Albumin (3.4-5.0) gm/dl Globulin (2.5-4.0) gm/dl Albumin/Globulin Ratio (0.9-2) COVID-19 Eval Order SARS-CoV-2 (PCR) (Negative) Influenza Type A (PCR) (Neg) Influenza Type B (PCR) (Neg) RSV (RT-PCR) (Neg) 01/22/21 Range/Units 18:07 WBC (4.8-10.8) K/uL RBC (4.7-6.1) M/uL Hgb (14.0-18.0) g/dL Hct (42-52) % MCV (80-100) fL MCH (25-34) pg MCHC (32-36) g/dL RDW Std Deviation (36.4-46.3) fL RDW Coeff of Monika (11.5-14.5) % Plt Count (130-400) K/uL MPV (7.4-10.4) fL Immature Gran % (Auto) % Neut % (Auto) % Lymph % (Auto) % [place] % (Auto) % Eos % (Auto) % Baso % (Auto) % Neut # (Auto) (1.4-6.5) K/uL Lymph # (Auto) (1.2-3.4) K/uL [place] # (Auto) (0.11-0.59) K/uL Eos # (Auto) (0-0.5) K/uL Baso # (Auto) (0-0.2) K/uL Immature Gran # (Auto) (0.00-0.02) K/uL PT (9.0-12.0) Seconds INR (0.9-1.1) APTT (21.0-31.0) Seconds PTT Ratio Sodium (136-145) mmol/L Potassium (3.5-5.1) mmol/L Chloride (98-107) mmol/L Carbon Dioxide (21-32) mmol/L Anion Gap (3-11) BUN (7-18) mg/dl Creatinine (0.6-1.4) mg/dl Est Cr Clr Drug Dosing ml/min Est GFR ( Amer) Est GFR (Non-Af Amer) BUN/Creatinine Ratio (10-20) Glucose (70-99) mg/dl Lactate 1.8 (0.4-2.0) mmol/L Calcium (8.5-10.1) mg/dl Magnesium (1.8-2.4) mg/dl Total Bilirubin (0.2-1) mg/dl AST (15-37) U/L ALT (12-78) U/L Alkaline Phosphatase (45-117) U/L Total Protein (6.4-8.2) gm/dl Albumin (3.4-5.0) gm/dl Globulin (2.5-4.0) gm/dl Albumin/Globulin Ratio (0.9-2) COVID-19 Eval Order SARS-CoV-2 (PCR) (Negative) Influenza Type A (PCR) (Neg) Influenza Type B (PCR) (Neg) RSV (RT-PCR) (Neg) Administered Medications Aspirin (Aspirin 81 Mg Ectab) 81 mg PO [facility] Stop: 02/22/21 08:59 Last Admin: 01/24/21 08:03 Dose: 81 mg Documented by: [id number] Admin: 01/23/21 09:49 Dose: 81 mg Documented by: [id number] Atorvastatin Calcium (Atorvastatin 40 Mg Tab) 80 mg PO [facility] Stop: 02/21/21 21:29 Last Admin: 01/23/21 20:49 Dose: 80 mg Documented by: [id number] Admin: 01/22/21 22:40 Dose: 80 mg Documented by: [id number] Carvedilol (Carvedilol 6.25 Mg Tab) 6.25 mg PO BID [facility] Stop: 02/21/21 21:29 Last Admin: 01/24/21 08:03 Dose: 6.25 mg Documented by: [id number] Admin: 01/23/21 20:49 Dose: 6.25 mg Documented by: [id number] Admin: 01/23/21 09:49 Dose: 6.25 mg Documented by: [id number] Admin: 01/22/21 22:43 Dose: 6.25 mg Documented by: [id number] Clopidogrel Bisulfate (Clopidogrel Bisulfate 75 Mg Tab) 75 mg PO DAILY [facility] Stop: 02/22/21 08:59 Last Admin: 01/24/21 08:06 Dose: 75 mg Documented by: [id number] Admin: 01/23/21 09:49 Dose: 75 mg Documented by: [id number] Ferrous Sulfate (Ferrous Sulfate 325 Mg Tab) 325 mg PO QAM [facility] Stop: 02/22/21 08:59 Last Admin: 01/24/21 08:04 Dose: 325 mg Documented by: [id number] Admin: 01/23/21 09:49 Dose: 325 mg Documented by: [id number] Dexamethasone 6 mg/ Syringe 1.5 mls @ 1 mls/min IV QAM [facility] Stop: 02/01/21 08:59 Last Admin: 01/24/21 08:04 Dose: 1 mls/min Documented by: [id number] Admin: 01/23/21 09:49 Dose: 1 mls/min Documented by: [id number] Isosorbide Mononitrate (Isosorbide Coosa Extended Rel 30 Mg Tabcr) 30 mg PO BID [facility] Stop: 02/22/21 08:59 Last Admin: 01/24/21 08:05 Dose: 30 mg Documented by: [id number] Admin: 01/23/21 20:50 Dose: 30 mg Documented by: [id number] Admin: 01/23/21 09:49 Dose: 30 mg Documented by: [id number] Multivitamins/Minerals (Cerovite Adv Formula Tab) 1 tab PO BID [facility] Stop: 02/21/21 21:29 Last Admin: 01/24/21 08:05 Dose: 1 tab Documented by: [id number] Admin: 01/23/21 20:50 Dose: 1 tab Documented by: [id number] Admin: 01/23/21 09:49 Dose: 1 tab Documented by: [id number] Admin: 01/22/21 22:41 Dose: 1 tab Documented by: [id number] Pantoprazole Sodium (Pantoprazole 40 Mg Tab) 40 mg PO QAM [facility] Stop: 02/22/21 08:59 Last Admin: 01/24/21 08:07 Dose: 40 mg Documented by: [id number] Admin: 01/23/21 09:50 Dose: 40 mg Documented by: [id number] Sodium Bicarbonate (Sodium Bicarbonate 650 Mg Tab) 650 mg PO TID [facility] Stop: 02/22/21 08:59 Last Admin: 01/24/21 08:07 Dose: 650 mg Documented by: [id number] Admin: 01/23/21 20:49 Dose: 650 mg Documented by: [id number] Admin: 01/23/21 13:40 Dose: 650 mg Documented by: [id number] Admin: 01/23/21 09:50 Dose: 650 mg Documented by: [id number] Umeclidinium Sagamore (Umeclidinium [place] 62.5mcg/Blister 7 Puffs/Inhaler) 1 puffs INH QDL [facility] Stop: 02/22/21 11:29 Last Admin: 01/23/21 10:41 Dose: 1 puffs Documented by: [id number] Vitamin D (Cholecalciferol 1,000 Units 25 Mcg Tab) 2,000 units PO QAM [facility] Stop: 02/22/21 08:59 Last Admin: 01/24/21 08:08 Dose: 2,000 units Documented by: [id number] Admin: 01/23/21 09:50 Dose: 2,000 units Documented by: [id number] Discontinued Medications Acetaminophen (Acetaminophen 500 Mg Tab) 1,000 mg PO NOW STA Stop: 01/22/21 15:14 Last Admin: 01/22/21 15:28 Dose: 1,000 mg Documented by: [id number] Albuterol (Albut/Ipratrop 3mg/0.5mg Neb 3 Ml Vial) 3 ml NEB NOW STA Stop: 01/22/21 15:16 Last Admin: 01/22/21 16:04 Dose: 3 ml Documented by: [id number] Heparin Sodium/Dextrose (Heparin Iv Standard *No* Bolus) 1 ea IV Q15M [facility]; Protocol Stop: 02/21/21 23:12 Last Admin: 01/23/21 00:18 Dose: Not Given Documented by: [id number] Sodium Chloride (Nss 1000ml) 1,000 mls @ 999 mls/hr IV .Q1H1M [facility] Stop: 01/22/21 16:15 Last Infusion: 01/22/21 18:01 Dose: 0 mls/hr Documented by: [id number] Admin: 01/22/21 15:57 Dose: 999 mls/hr Documented by: [id number] Heparin Sodium/Dextrose (Heparin Sodium/Dextrose) 25,000 units in 500 mls @ 19 mls/hr IV .Q24H [facility]; Protocol Stop: 02/21/21 23:14 Last Admin: 01/24/21 10:30 Dose: Not Given Documented by: [id number] Titration: 01/24/21 10:28 Dose: 0 units/hr, 0 mls/hr Documented by: [id number] Cosigned by: [id number] Titration: 01/24/21 07:45 Dose: 950 units/hr, 19 mls/hr Documented by: [id number] Cosigned by: [id number] Titration: 01/24/21 07:10 Dose: 0 units/hr, 0 mls/hr Documented by: [id number] Cosigned by: [id number] Titration: 01/24/21 06:33 Dose: 0 units/hr, 0 mls/hr Documented by: [id number] Cosigned by: [id number] Admin: 01/23/21 22:45 Dose: 1,100 units/hr, 22 mls/hr Documented by: [id number] Cosigned by: [id number] Titration: 01/23/21 22:45 Dose: 1,100 units/hr, 22 mls/hr Documented by: [id number] Cosigned by: [id number] Titration: 01/23/21 17:02 Dose: 1,100 units/hr, 22 mls/hr Documented by: [id number] Cosigned by: [id number] Titration: 01/23/21 11:29 Dose: 1,100 units/hr, 22 mls/hr Documented by: [id number] Cosigned by: [id number] Titration: 01/23/21 09:10 Dose: 1,100 units/hr, 22 mls/hr Documented by: [id number] Cosigned by: [id number] Titration: 01/23/21 08:11 Dose: 0 units/hr, 0 mls/hr Documented by: [id number] Cosigned by: [id number] Admin: 01/23/21 00:47 Dose: 1,250 units/hr, 25 mls/hr Documented by: [id number] Cosigned by: [id number] Dexamethasone 6 mg/ Syringe 1.5 mls @ 1 mls/min IV [facility] Stop: 01/22/21 23:18 Last Admin: 01/22/21 23:41 Dose: 1 mls/min Documented by: [id number] Sodium Chloride (Nss 1000ml) 1,000 mls @ 80 mls/hr IV .[id number] GILBERT Stop: 02/22/21 08:29 Last Infusion: 01/23/21 12:15 Dose: 0 mls/hr Documented by: [id number] Admin: 01/23/21 09:49 Dose: 80 mls/hr Documented by: [id number] Discharge Plan Visit Data Chief Complaint: Dehydration Stated Complaint: dehydrated ED Provider: Maki Atkinson Discharge Problem: Pneumonia due to 2019 novel coronavirus, CRF (chronic renal failure), Elevated lactic acid level Patient Disposition: Admitted As Inpatient Discharge Instructions Interventions: ED Discharge Assessment Last Done: 01/22/21 20:33 Discharge Problem: CRF (chronic renal failure) Qualifiers: Chronic kidney disease stage: stage 4 (severe) Qualified Code(s): N18.4 - Chronic kidney disease, stage 4 (severe)
[2021-01-22] MEDS ORDERED: Heparin IV Adult Wt-Based Standard *NO* Bolus Protocol IV SCH (23:13)
[2021-01-22] MEDS ORDERED: dexAMETHasone 6 MG in SYRINGE 0 ML IV STA (23:17)
[2021-01-23] MEDS: HEPARIN SODIUM/DEXTROSE 25,000 UNITS/500 ML BAG IV SCH ×2 (00:47→22:45)
[2021-01-23 03:24] LABS: Appearance Urine Clear (Clear); Bacteria Urine Automated Negative (Negative); Bilirubin Urine Negative (Negative); Blood Urine 1+ (Negative); Color Urine Yellow; Glucose Urine UA Negative (Negative); Ketones Urine Trace (Negative); Leukocyte Esterase Urine Negative (Negative); Nitrite Urine Negative (Negative); Protein Urine 3+ (Negative); RBC Urine Automated 0-4 /hpf (0-4); Specific Gravity Urine 1.018 (1.000-1.030); Urobilinogen Urine Negative (Negative)
[2021-01-23 07:34] LABS: Basophils # (auto) 0.01 K/uL (0-0.2); Basophils % (auto) 0.3 %; Hematocrit (blood only) 37.2 % (42-52); Hemoglobin 13.3 g/dL (14.0-18.0); Immature Granulocytes # (auto) 0.01 K/uL (0.00-0.02); Immature Granulocytes % (auto) 0.3 %; Lymphocytes # (auto) 0.35 K/uL (1.2-3.4); Lymphocytes % (auto) 9.6 %; Mean Corpuscular Hemoglobin 32.8 pg (25-34); Mean Corpuscular Hgb Conc 35.8 g/dL (32-36); Mean Corpuscular Volume 91.9 fL (80-100); Mean Platelet Volume 10.9 fL (7.4-10.4); Monocytes # (auto) 0.13 K/uL (0.11-0.59); Monocytes % (auto) 3.6 %; Neutrophils # (auto) 3.13 K/uL (1.4-6.5); Neutrophils % (auto) 86.2 %; Platelet Count 176 K/uL (130-400); RDW Coefficient of Variation 13.7 % (11.5-14.5); RDW Standard Deviation 45.9 fL (36.4-46.3); Red Blood Count 4.05 M/uL (4.7-6.1); White Blood Count 3.63 K/uL (4.8-10.8)
[2021-01-23 07:54] LABS: Partial Thromboplastin Ratio 3.8
[2021-01-23 07:57] LABS: Partial Thromboplastin Time 99.1 Seconds (21.0-31.0)
[2021-01-23 07:58] LABS: BUN Creatinine Ratio 20.7 (10-20); Calcium 8.5 mg/dl (8.5-10.1); Creatinine Clr Calc Pharmacy 21.2 ml/min; Est GFR (African American) 20.5; Est GFR (Non-African American) 17.7; Potassium 4.1 mmol/L (3.5-5.1)
[2021-01-23] MEDS ORDERED: SODIUM CHLORIDE 0.9% 1000ML 1,000 ML IV SCH (08:30)
[2021-01-23] MEDS: FERROUS SULFATE 325 MG TAB PO SCH (09:49)
[2021-01-23] MEDS: ASPIRIN 81 MG ECTAB PO SCH (09:49)
[2021-01-23] MEDS: dexAMETHasone 6 MG in SYRINGE 0 ML IV SCH (09:49)
[2021-01-23] MEDS: ISOSORBIDE MONO EXTENDED REL 30 MG TABCR PO SCH ×2 (09:49→20:50)
[2021-01-23] MEDS: carvediloL 6.25 MG TAB PO SCH ×2 (09:49→20:49)
[2021-01-23] MEDS: CEROVITE ADV FORMULA TAB PO SCH ×2 (09:49→20:50)
[2021-01-23] MEDS: CLOPIDOGREL BISULFATE 75 MG TAB PO SCH (09:49)
[2021-01-23] MEDS: SODIUM BICARBONATE 650 MG TAB PO SCH ×3 (09:50→20:49)
[2021-01-23] MEDS: CHOLECALCIFEROL 1,000 UNITS 25 MCG TAB PO SCH (09:50)
[2021-01-23] MEDS: PANTOprazole 40 MG TAB PO SCH (09:50)
--- NOTE | 2021-01-23 10:15 | Electrocardiogram Report ---
Test Reason : Blood Pressure : / mmHG Vent. Rate : 103 BPM Atrial Rate : 103 BPM P-R Int : 116 ms QRS Dur : 158 ms QT Int : 394 ms P-R-T Axes : 062 -18 111 degrees QTc Int : 516 ms Atrial-sensed ventricular-paced rhythm Abnormal ECG When compared with ECG of 02-JUN-2020 10:56, Vent. rate has increased BY 39 BPM Sinus tachycardia has replaced NSR Confirmed by Yosvany Samuel ([id number]) on 01/23/2021 10:14:39 AM Referred By: Confirmed By:Yosvany Samuel
[2021-01-23] MEDS: UMECLIDINIUM BROMIDE 62.5MCG/BLISTER 7 PUFFS/INHALER INH SCH (10:41)
--- NOTE | 2021-01-23 11:57 | Nephrology Consultation ---
Date of Consultation January 23, 2021 Assessment & Plan (1) LINDSAY (acute kidney injury): 60 y o m with stage 4 CKD, b/l cr around 2.5 to 2.6 secondary to atrophic right kidney chronic moderate to severe hydronephrosis with ureteral stricture. Has right BC AV graft placement in September 2020. Admitted with COVID pneumonia. Found to have LINDSAY, hyponatremia and metabolic acidosis. LINDSAY most likely prerenal with volume depletion with diarrhea nd poor po intake, which may have contributed to hyponatremia and acidosis. --DC IV fluid, monitor volume status close with h/o cardiomyopathy and CHF before. --start on Na bicarb 650 mg BID --repeat Na in few hours and then q12h --continue dexamethasone. Will follow Thank you for the consult. (2) Pneumonia due to COVID-19 virus: (3) Cardiomyopathy: (4) Acute hyponatremia: (5) Chronic kidney disease, stage 4 (severe): (6) Hypertension: (7) Metabolic acidosis: History of Present Illness Reason for Consultation: LINDSAY on CKD, metabolic acidosis. Attending Physician: Mathew Nascimento DO History of Present Illness Mr. Fall is a 60 y o M with PMH of Stage 4 CKD, COPD, cardiomyopathy, HTN, CAD, PVD admitted on 01/22/21 with COVID Pneumonia and LINDSAY. Nephrology consult was requested to manage LINDSAY on CKD, metabolic acidosis. EMR records were reviewed in detail during pts visit. Mr. Fall received first dose of COVId vaccine on 01/17/21. He started having diarrhea, loss of appetite, cough, fever, chills and overall feeling poorly 1 day after receiving the vaccine. He presented to ER yesterday as he continued to feel poorly associated with some respiratory distress. On admission COVID test was positive. D dimer was elevated. CXR with b/l pleural effusion and pulmonary congestion. Lab showed LINDSAY with cr 3.8, Na 127, and Bicarb 19. K was normal. He was started on IV NS. Has been having decent UO. Diarrhea better. Po intake better. SOB slightly improved with NC 02. Remdesivir was not given as GFR <30. Keron has stage 4 CKD, b/l cr 2.5 to 2.6 with right kidney chronic moderate to severe hydronephrosis with ureteral stricture. Had stent several times over last few years and eventually stent was taken out as there was no difference with or without stent. Nuclear renal scan in October 2019 showed right kidney mostly nonfunctional with less than 19% function and left kidney more than 81% function. He also reports being told to have right renal artery stenosis before. Denies any known family history of chronic kidney disease or end-stage renal disease. Long history of smoking, quit smoking in October 2019. 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 Lives alone, has grown-up daughter. Had right brachiocephalic AV fistula on 07/20/2020 with the primary failure, eventually had AV graft placement in September 2020. He is planning to do hemodialysis when needed. Hypertension, well controlled on losartan 25 mg and carvedilol. Has history of cardiomyopathy, Ef 30 to 35%, status post pacemaker, usually on Torsemide 50 mg/d at home. 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 Allergies Allergy/AdvReac Type Severity Reaction Status Date / Time No Known Allergies Allergy Unknown Verified 01/22/21 17:46 Home Medications Medication Instructions Recorded Confirmed Type aspirin 81 mg PO QAM 11/03/19 01/22/21 History atorvastatin 80 mg PO HS 11/30/19 01/22/21 History cholecalciferol (vitamin D3) 2,000 unit PO QAM 12/24/19 01/22/21 History ferrous sulfate [iron] 325 mg PO QAM 02/16/20 01/22/21 History Spacer for Inhaler #1 ea 02/21/20 11/25/20 Rx albuterol sulfate 1 puffs INH Q6H PRN #18 gm 02/21/20 01/22/21 Rx isosorbide mononitrate 30 mg PO BID #60 tab 02/21/20 01/22/21 Rx carvedilol 6.25 mg tablet 6.25 mg PO BID 05/10/20 01/22/21 History hydralazine 50 mg tablet 50 mg PO TID 05/10/20 01/22/21 History pantoprazole 40 mg tablet,delayed 40 mg PO QAM 05/10/20 01/22/21 History release PreserVision AREDS-2 1 tab PO BID 07/13/20 01/22/21 History Spiriva with HandiHaler 1 cap INH QDL 07/13/20 01/22/21 History losartan 25 mg PO QAM 07/13/20 01/22/21 History torsemide 20 mg tablet 50 mg PO QAM tab 12/13/20 01/22/21 History acetaminophen [Tylenol] 325 mg PO QID PRN 01/22/21 01/22/21 History clopidogrel [Plavix] 75 mg PO DAILY 01/22/21 01/22/21 History Patient History Medical History (Updated 01/23/21 @ 11:52 by Heide Handy MD) AV fistula RIGHT UPPER ARM> NOT WORKING> REASON FOR PROCEDURE CAD (coronary artery disease) Chronic RCA occlusion; s/p three MARY 11/06/19 to LAD; residual 40% OM2 stenosis Chronic congestive heart failure 02/2020 [facility] - SOB and fluid around heart and lungs - had pacer placed. Chronic kidney disease, stage V no diaylsis currently. will see Dr Handy in August 2020. COPD (chronic obstructive pulmonary disease) DOES GET OCCASIONAL D.O.E COPD with emphysema Hx of pulmonary edema "flash" during endo/colon 02/2020 [facility]. Hyperlipidemia Hypertension Hyponatremia CHRONIC Iron deficiency anemia REASON FOR COLONOSCOPY/EGD 02/2020 Ischemic cardiomyopathy EJECTION FRACTION 30-34% Left bundle branch block Lung nodule monitoring Metabolic acidosis Nocturnal hypoxemia due to emphysema placed on CPAP, no home oxygen currently. NSTEMI (non-ST elevated myocardial infarction) 10/2019 Pacemaker placed 02/2020 [facility]. last checked JUL 2020> FOLLOWS IRENE BUSBY Peripheral vascular disease WITH BL CAROTID BRUITS- RIGHT AND LEFT ICA 50-69% PER 08/2020 CAROTID DOPPLER SFA OCCLUSIONS SMA stenosis Surgical History Amputation of fifth toe of right foot 2014 H/O vascular surgery RIGHT FEM-POP BYBASS in 2014, AORTOBIFEMORAL BYPASS IN 2003, PRIOR RIGHT ILIOFEMORAL BYPASS IN 1999 (PATIENT STATE HE HAS HAD 4 VASCULAR SURGERIES) History of angioplasty Right LE approx 2014 History of cardiac cath S/P PCI TO THE PROXIMAL AND MID LAD WITH 3 DRUG-ELUTING STENTS NOVEMBER 06, 2019. RESIDUAL 40% 2ND OBTUSE MARGINAL STENOSIS. History of colonoscopy 02/2020 History of esophagogastroduodenoscopy (EGD) History of heart artery stent x3 Nov [address] [facility] Busby. S/P cardiac pacemaker procedure 02/2020 [facility] Family History Other No family history of adverse response to anesthesia Social History Smoking Status: Former smoker packs per day: 2; Years Smoked: 45; Smoking End Date: 02/2020; Second Hand Exposure: No; Hx Alcohol Use: Yes Alcohol type: beer Hx Substance Use: No Preferred Language: Tajik Communication Ability: Effective Dry Janitor Required: No Beliefs That Will Affect Care: None marital status: Single Current Living Situation: Alone How many Children do You have: 0 Other Information That Helps Us Care for You: No Feels Safe at Home: Yes Safety Concerns: Feels Safe At This Time Assistive Devices: Denture - Upper, Glasses and Hearing Aid - Bilateral Assistive Devices Comment: glasses with patient Review of Systems Review of Systems: All systems reviewed & are unremarkable except as noted in Subjective Physical Exam Constitutional: WD/WN, vitals as above + ill appearing; no acute distress Eyes: PERRL, conjunctivae normal, anicteric sclerae ENMT: external ear and nose normal, oropharynx normal Ears: no hearing impairment Neck: + anterior neck swelling Respiratory: + respiratory distress, + cough and + tachypneic Auscultation: + crackles; no wheezes Cardiovascular: Rate/Rhythm: regular rate and regular rhythm Heart Sounds: normal S1 and normal S2 Extremities: no edema Gastrointestinal (Abdomen): normal bowel sounds, soft, nontender, no hepatosplenomegaly Percussion/Palpation: abdomen nontender, no guarding and abdomen not rigid Musculoskeletal: Extremities: extremities normal to inspection Gait: normal gait Skin: no rashes, warm and dry Neurologic: moves all extremities and awake Psychiatric: A+Ox3, euthymic affect Results & Data ([facility]) Vital Signs (Past 12 Hours) Vital Signs Temp Pulse Pulse Resp BP Pulse Ox 01/23/21 08:16 36.5 C 98 H 20 130/62 95 01/23/21 04:22 85 PG Care Time/CCT Total # of Minutes Spent Total Time Spent with Patient: Total time spent is greater than 50% in coordination of care (as documented) at patient's floor/unit and/or counseling patient: Coding Level of Care Code 57503 Inpt Consult Level 5 Diagnoses LINDSAY (acute kidney injury) N17.9 Pneumonia due to COVID-19 virus U07.1; J12.82 Cardiomyopathy I25.5 Cardiomyopathy type: ischemic Acute hyponatremia E87.1 Chronic kidney disease, stage 4 (severe) N18.4 Hypertension I10 Metabolic acidosis E87.2 (1) Cardiomyopathy Cardiomyopathy type: ischemic Qualified Code(s): I25.5 - Ischemic cardiomyopathy
--- NOTE | 2021-01-23 14:39 | Hospitalist Progress Note ---
Date of Service January 23, 2021 Assessment & Plan (1) Pneumonia due to COVID-19 virus: Not candidate for remdesivir due to EGFR less than 30. he is now requiring 2L NC, started on dexamethasone 6mg IV on 01/22 day 2 today, continue for 10 days he is breathing comfortably at rest, has a dry cough monitor for any signs of worsening breathing (2) Diarrhea: This appears to be his main symptom of COVID as he has minimal O2 requirement has not given us a sample, doubt C diff start Imodium PRN (3) Bilateral pleural effusion: Suspect chronic rather than acute CHF (4) Elevated procalcitonin: Plan to trend currently. No immediate need for antibiotics. If trending upwards consider coverage for secondary bacterial infection. (5) Elevated d-dimer: Concerning for PE in setting of COVID-19 PNA. IV heparin drip without bolus overnight most likely it is just due to COVID will get venous dopplers, if not DVT then stop heparin drip cannot get CTA chest due to Cr and cannot get V/Q on weekend (6) Acute hyponatremia: Suspect due torsemide use and dehydration rather than failure despite elevated BNP. 1L NSS given in ER no further fluids, he is eating and drinking better today (7) LINDSAY (acute kidney injury): Will place kelley cath to closely monitor urine output BMP with AM labs Suspect his uremia is causing his anion gap without acidosis Cr is 3.4, stable, encourage PO intake, drinking better K is stable consulted Dr. Handy sodium bicarb added for metabolic acidosis (8) Ischemic cardiomyopathy: LVEF 30-34% Continue carvedilol but hold losartan due to LINDSAY (9) Systolic CHF: Appears hypovolemic on admission despite BNP and XR findings Hold torsemide drinking better today, no need for IV fluids (10) CAD (coronary artery disease): Continue ASA, clopidogrel, carvedilol, atorvastatin (11) Hypertension: Continue carvedilol to avoid rebound tachycardia Continue ISMN to avoid angina Hold torsemide, hydralazine and losartan to allow improved perfusion (12) COPD (chronic obstructive pulmonary disease): No current exacerbation. (13) Elevated lactic acid level: Resolved with IV fluids given in ER (14) DVT prophylaxis: IV heparin drip as above Admission and Anticipated Discharge Date Admission Date: January 22, 2021 Subjective patient now on 2L, he was started on dexamethasone last night breathing well, no distress he is eating and drinking more today, no diarrhea, first time in several days reviewed his labs, has a metabolic acidosis, Cr is 3.49, Na is [address] Handy he is on heparin drip for possible PE but cannot get CTA chest due to renal function and cannot get V/Q on weekend likely that elevated D dimer due to COVID alone will check venous dopplers in room, if no DVT then stop heparin drip Review of Systems Review of Systems: All systems reviewed & are unremarkable except as noted in Subjective Constitutional: + weakness; no fever, no chills, no sweats and no fatigue Respiratory: + cough and + dyspnea on exertion; no dyspnea, no pain with cough and no sputum production Cardiovascular: no chest pain, no palpitations and no edema Gastrointestinal: no abdominal pain, no nausea, no vomiting, no constipation and no diarrhea/loose stools Physical Exam Constitutional: WD/WN, vitals as above Neck: trachea midline, no thyromegaly Respiratory: normal respiratory effort, lungs clear to auscultation Cardiovascular: RRR, no murmur, no edema Gastrointestinal (Abdomen): normal bowel sounds, soft, nontender, no hepatosplenomegaly Musculoskeletal: no cyanosis or clubbing, extremities motor strength 5/5 Skin: no rashes, warm and dry Neurologic: patellar DTR's 2+ bilat, sensation intact and PERRL, EOMI, accommodation nl, no face palsy, no dysarthria Psychiatric: A+Ox3, euthymic affect Lymphatic: no cervical or axillary lymphadenopathy Results & Data Results & Data ([facility]) Vital Signs (Past 12 Hours) Vital Signs Temp Pulse Pulse Resp BP Pulse Ox 01/23/21 08:16 36.5 C 98 H 20 130/62 95 01/23/21 04:22 85 Laboratory Results Laboratory Results - last 24 hr 01/22/21 01/22/21 01/22/21 15:27 15:27 15:40 WBC RBC Hgb Hct MCV MCH MCHC RDW Std Deviation RDW Coeff of Monika Plt Count MPV Immature Gran % (Auto) Neut % (Auto) Lymph % (Auto) [place] % (Auto) Eos % (Auto) Baso % (Auto) Neut # (Auto) Lymph # (Auto) [place] # (Auto) Eos # (Auto) Baso # (Auto) Immature Gran # (Auto) PT INR APTT PTT Ratio D-Dimer VBG pH Sodium 125 L Potassium 4.2 Chloride 93 L Carbon Dioxide 15 L Anion Gap 16.0 H BUN 68 H Creatinine 3.80 H Est Cr Clr Drug Dosing 19.5 Est GFR ( Amer) 18.5 Est GFR (Non-Af Amer) 16.0 BUN/Creatinine Ratio 17.8 Glucose 100 H Lactate Calcium 8.2 L Magnesium 2.0 Total Bilirubin 0.9 AST 49 H ALT 26 Alkaline Phosphatase 81 C-Reactive Protein NT-Pro-B Natriuret Pep Total Protein 7.5 Albumin 3.3 L Globulin 4.2 H Albumin/Globulin Ratio 0.8 L Procalcitonin Urine Color Urine Appearance Urine pH Ur Specific [place] Urine Protein Urine Glucose (UA) Urine Ketones Urine Blood Urine Nitrite Urine Bilirubin Urine Urobilinogen Ur Leukocyte Esterase Urine WBC (Auto) Urine RBC (Auto) U Hyaline Cast (Auto) U Epithel Cells (Auto) Urine Bacteria (Auto) COVID-19 Eval Order CovFluRsv at [facility] SARS-CoV-2 (PCR) POSITIVE A* Influenza Type A (PCR) Negative Influenza Type B (PCR) Negative RSV (RT-PCR) Negative 01/22/21 01/22/21 01/22/21 15:40 15:40 15:40 WBC 5.15 RBC 4.04 L Hgb 13.4 L Hct 37.1 L MCV 91.8 MCH 33.2 MCHC 36.1 H RDW Std Deviation 46.0 RDW Coeff of Monika 13.7 Plt Count 175 MPV 10.7 H Immature Gran % (Auto) 0.2 Neut % (Auto) 81.9 Lymph % (Auto) 9.9 [place] % (Auto) 7.6 Eos % (Auto) 0.0 Baso % (Auto) 0.4 Neut # (Auto) 4.22 Lymph # (Auto) 0.51 L [place] # (Auto) 0.39 Eos # (Auto) 0.00 Baso # (Auto) 0.02 Immature Gran # (Auto) 0.01 PT 12.2 H INR 1.2 H APTT 27.4 PTT Ratio 1.0 D-Dimer VBG pH Sodium Potassium Chloride Carbon Dioxide Anion Gap BUN Creatinine Est Cr Clr Drug Dosing Est GFR ( Amer) Est GFR (Non-Af Amer) BUN/Creatinine Ratio Glucose Lactate 2.5 H* Calcium Magnesium Total Bilirubin AST ALT Alkaline Phosphatase C-Reactive Protein NT-Pro-B Natriuret Pep Total Protein Albumin Globulin Albumin/Globulin Ratio Procalcitonin Urine Color Urine Appearance Urine pH Ur Specific [place] Urine Protein Urine Glucose (UA) Urine Ketones Urine Blood Urine Nitrite Urine Bilirubin Urine Urobilinogen Ur Leukocyte Esterase Urine WBC (Auto) Urine RBC (Auto) U Hyaline Cast (Auto) U Epithel Cells (Auto) Urine Bacteria (Auto) COVID-19 Eval Order SARS-CoV-2 (PCR) Influenza Type A (PCR) Influenza Type B (PCR) RSV (RT-PCR) 01/22/21 01/22/21 01/22/21 18:07 21:33 21:33 WBC RBC Hgb Hct MCV MCH MCHC RDW Std Deviation RDW Coeff of Monika Plt Count MPV Immature Gran % (Auto) Neut % (Auto) Lymph % (Auto) [place] % (Auto) Eos % (Auto) Baso % (Auto) Neut # (Auto) Lymph # (Auto) [place] # (Auto) Eos # (Auto) Baso # (Auto) Immature Gran # (Auto) PT INR APTT PTT Ratio D-Dimer VBG pH 7.41 Sodium 127 L Potassium 3.8 Chloride 96 L Carbon Dioxide 15 L Anion Gap 15.0 H BUN 68 H Creatinine 3.63 H Est Cr Clr Drug Dosing 20.4 Est GFR ( Amer) 19.6 Est GFR (Non-Af Amer) 16.9 BUN/Creatinine Ratio 18.8 Glucose 100 H Lactate 1.8 Calcium 8.1 L Magnesium Total Bilirubin AST ALT Alkaline Phosphatase C-Reactive Protein 5.81 H NT-Pro-B Natriuret Pep > 39181 H Total Protein Albumin Globulin Albumin/Globulin Ratio Procalcitonin Urine Color Urine Appearance Urine pH Ur Specific [place] Urine Protein Urine Glucose (UA) Urine Ketones Urine Blood Urine Nitrite Urine Bilirubin Urine Urobilinogen Ur Leukocyte Esterase Urine WBC (Auto) Urine RBC (Auto) U Hyaline Cast (Auto) U Epithel Cells (Auto) Urine Bacteria (Auto) COVID-19 Eval Order SARS-CoV-2 (PCR) Influenza Type A (PCR) Influenza Type B (PCR) RSV (RT-PCR) 01/22/21 01/22/21 01/22/21 21:33 21:33 23:30 WBC RBC Hgb Hct MCV MCH MCHC RDW Std Deviation RDW Coeff of Monika Plt Count MPV Immature Gran % (Auto) Neut % (Auto) Lymph % (Auto) [place] % (Auto) Eos % (Auto) Baso % (Auto) Neut # (Auto) Lymph # (Auto) [place] # (Auto) Eos # (Auto) Baso # (Auto) Immature Gran # (Auto) PT INR APTT PTT Ratio D-Dimer 6950 H* VBG pH Sodium Potassium Chloride Carbon Dioxide Anion Gap BUN Creatinine Est Cr Clr Drug Dosing Est GFR ( Amer) Est GFR (Non-Af Amer) BUN/Creatinine Ratio Glucose Lactate Calcium Magnesium Total Bilirubin AST ALT Alkaline Phosphatase C-Reactive Protein NT-Pro-B Natriuret Pep Total Protein Albumin Globulin Albumin/Globulin Ratio Procalcitonin 0.68 H Urine Color Yellow Urine Appearance Clear Urine pH 5.0 Ur Specific [place] 1.018 Urine Protein 3+ H Urine Glucose (UA) Negative Urine Ketones Trace H Urine Blood 1+ H Urine Nitrite Negative Urine Bilirubin Negative Urine Urobilinogen Negative Ur Leukocyte Esterase Negative Urine WBC (Auto) 1-5 Urine RBC (Auto) 0-4 U Hyaline Cast (Auto) 1-5 U Epithel Cells (Auto) 5-10 H Urine Bacteria (Auto) Negative COVID-19 Eval Order SARS-CoV-2 (PCR) Influenza Type A (PCR) Influenza Type B (PCR) RSV (RT-PCR) 01/23/21 01/23/21 01/23/21 07:11 07:11 07:11 WBC 3.63 L RBC 4.05 L Hgb 13.3 L Hct 37.2 L MCV 91.9 MCH 32.8 MCHC 35.8 RDW Std Deviation 45.9 RDW Coeff of Monika 13.7 Plt Count 176 MPV 10.9 H Immature Gran % (Auto) 0.3 Neut % (Auto) 86.2 Lymph % (Auto) 9.6 [place] % (Auto) 3.6 Eos % (Auto) 0.0 Baso % (Auto) 0.3 Neut # (Auto) 3.13 Lymph # (Auto) 0.35 L [place] # (Auto) 0.13 Eos # (Auto) 0.00 Baso # (Auto) 0.01 Immature Gran # (Auto) 0.01 PT INR APTT PTT Ratio D-Dimer VBG pH Sodium 127 L Potassium 4.1 Chloride 95 L Carbon Dioxide 18 L Anion Gap 14.0 H BUN 72 H Creatinine 3.49 H Est Cr Clr Drug Dosing 21.2 Est GFR ( Amer) 20.5 Est GFR (Non-Af Amer) 17.7 BUN/Creatinine Ratio 20.7 H Glucose 117 H Lactate Calcium 8.5 Magnesium Total Bilirubin AST ALT Alkaline Phosphatase C-Reactive Protein NT-Pro-B Natriuret Pep Total Protein Albumin Globulin Albumin/Globulin Ratio Procalcitonin 0.71 H Urine Color Urine Appearance Urine pH Ur Specific [place] Urine Protein Urine Glucose (UA) Urine Ketones Urine Blood Urine Nitrite Urine Bilirubin Urine Urobilinogen Ur Leukocyte Esterase Urine WBC (Auto) Urine RBC (Auto) U Hyaline Cast (Auto) U Epithel Cells (Auto) Urine Bacteria (Auto) COVID-19 Eval Order SARS-CoV-2 (PCR) Influenza Type A (PCR) Influenza Type B (PCR) RSV (RT-PCR) 01/23/21 01/23/21 07:11 12:14 WBC RBC Hgb Hct MCV MCH MCHC RDW Std Deviation RDW Coeff of Monika Plt Count MPV Immature Gran % (Auto) Neut % (Auto) Lymph % (Auto) [place] % (Auto) Eos % (Auto) Baso % (Auto) Neut # (Auto) Lymph # (Auto) [place] # (Auto) Eos # (Auto) Baso # (Auto) Immature Gran # (Auto) PT INR APTT 99.1 H* PTT Ratio 3.8 D-Dimer VBG pH Sodium 127 L Potassium Chloride Carbon Dioxide Anion Gap BUN Creatinine Est Cr Clr Drug Dosing Est GFR ( Amer) Est GFR (Non-Af Amer) BUN/Creatinine Ratio Glucose Lactate Calcium Magnesium Total Bilirubin AST ALT Alkaline Phosphatase C-Reactive Protein NT-Pro-B Natriuret Pep Total Protein Albumin Globulin Albumin/Globulin Ratio Procalcitonin Urine Color Urine Appearance Urine pH Ur Specific [place] Urine Protein Urine Glucose (UA) Urine Ketones Urine Blood Urine Nitrite Urine Bilirubin Urine Urobilinogen Ur Leukocyte Esterase Urine WBC (Auto) Urine RBC (Auto) U Hyaline Cast (Auto) U Epithel Cells (Auto) Urine Bacteria (Auto) COVID-19 Eval Order SARS-CoV-2 (PCR) Influenza Type A (PCR) Influenza Type B (PCR) RSV (RT-PCR) Medications Administered Current Inpatient Medications Aspirin (Aspirin 81 Mg Ectab) 81 mg PO QAM [facility] Stop: 02/22/21 08:59 Last Admin: 01/23/21 09:49 Dose: 81 mg Documented by: Atorvastatin Calcium (Atorvastatin 40 Mg Tab) 80 mg PO HS [facility] Stop: 02/21/21 21:29 Last Admin: 01/22/21 22:40 Dose: 80 mg Documented by: Carvedilol (Carvedilol 6.25 Mg Tab) 6.25 mg PO BID [facility] Stop: 02/21/21 21:29 Last Admin: 01/23/21 09:49 Dose: 6.25 mg Documented by: Clopidogrel Bisulfate (Clopidogrel Bisulfate 75 Mg Tab) 75 mg PO DAILY [facility] Stop: 02/22/21 08:59 Last Admin: 01/23/21 09:49 Dose: 75 mg Documented by: Ferrous Sulfate (Ferrous Sulfate 325 Mg Tab) 325 mg PO QAM [facility] Stop: 02/22/21 08:59 Last Admin: 01/23/21 09:49 Dose: 325 mg Documented by: Heparin Sodium/Dextrose (Heparin Sodium/Dextrose) 25,000 units in 500 mls @ 22 mls/hr IV .[id number] [facility]; Protocol Stop: 02/21/21 23:14 Last Titration: 01/23/21 11:29 Dose: 1,100 units/hr, 22 mls/hr Documented by: Dexamethasone 6 mg/ Syringe 1.5 mls @ 1 mls/min IV QAM [facility] Stop: 02/01/21 08:59 Last Admin: 01/23/21 09:49 Dose: 1 mls/min Documented by: Isosorbide Mononitrate (Isosorbide [place] Extended Rel 30 Mg Tabcr) 30 mg PO BID [facility] Stop: 02/22/21 08:59 Last Admin: 01/23/21 09:49 Dose: 30 mg Documented by: Multivitamins/Minerals (Cerovite Adv Formula Tab) 1 tab PO BID [facility] Stop: 02/21/21 21:29 Last Admin: 01/23/21 09:49 Dose: 1 tab Documented by: Pantoprazole Sodium (Pantoprazole 40 Mg Tab) 40 mg PO QAM [facility] Stop: 02/22/21 08:59 Last Admin: 01/23/21 09:50 Dose: 40 mg Documented by: Sodium Bicarbonate (Sodium Bicarbonate 650 Mg Tab) 650 mg PO TID [facility] Stop: 02/22/21 08:59 Last Admin: 01/23/21 13:40 Dose: 650 mg Documented by: Umeclidinium [place] (Umeclidinium [place] 62.5mcg/Blister 7 Puffs/Inhaler) 1 puffs INH QDL [facility] Stop: 02/22/21 11:29 Last Admin: 01/23/21 10:41 Dose: 1 puffs Documented by: Vitamin D (Cholecalciferol 1,000 Units 25 Mcg Tab) 2,000 units PO QAM [facility] Stop: 02/22/21 08:59 Last Admin: 01/23/21 09:50 Dose: 2,000 units Documented by: PG Care Time/CCT Total # of Minutes Spent Total Time Spent with Patient: Total time spent is greater than 50% in coordination of care (as documented) at patient's floor/unit and/or counseling patient: Coding Level of Care Code 05340 Subseq Hosp Care Lvl 3 Diagnoses Pneumonia due to COVID-19 virus U07.1; J12.82 Diarrhea R19.7 Bilateral pleural effusion J90 Elevated procalcitonin R79.89 Elevated d-dimer R79.89 Acute hyponatremia E87.1 LINDSAY (acute kidney injury) N17.9 Ischemic cardiomyopathy I25.5 Systolic CHF I50.22 Heart failure chronicity: chronic CAD (coronary artery disease) I25.10 Coronary Disease-Associated Artery/Lesion type: [place] artery [place] vs. transplanted heart: [place] heart Associated angina: without angina Hypertension I10 Hypertension type: essential hypertension COPD (chronic obstructive pulmonary disease) J44.9 Elevated lactic acid level R79.89 DVT prophylaxis Z29.9 (1) Systolic CHF Heart failure chronicity: chronic Qualified Code(s): I50.22 - Chronic systolic (congestive) heart failure (2) CAD (coronary artery disease) Coronary Disease-Associated Artery/Lesion type: [place] artery [place] vs. transplanted heart: [place] heart Associated angina: without angina Qualified Code(s): I25.10 - Atherosclerotic heart disease of [place] coronary artery without angina pectoris (3) Hypertension Hypertension type: essential hypertension Qualified Code(s): I10 - Essential (primary) hypertension
[2021-01-23 16:26] LABS: Partial Thromboplastin Ratio 2.5
[2021-01-23 16:37] LABS: Partial Thromboplastin Time 65.8 Seconds (21.0-31.0)
[2021-01-23] MEDS: ATORVASTATIN 40 MG TAB PO SCH (20:49)
[2021-01-24 06:29] LABS: Partial Thromboplastin Ratio 3.8
[2021-01-24 06:32] LABS: Partial Thromboplastin Time 100.2 Seconds (21.0-31.0)
--- NOTE | 2021-01-24 07:20 | Ultrasound Report ---
BILATERAL LOWER EXTREMITY VENOUS DOPPLER HISTORY: elevated d dimer, cannot get CTA chest COMPARISON STUDY: None. FINDINGS: There is normal compressibility, flow, and augmentation within the bilateral lower extremit y deep venous systems. IMPRESSION: No DVT within the right or left lower extremity. ACT 112: Negative or not required by law. Electronically signed by: Uvaldo Bolaños M.D. 01/24/2021 7:19 AM
[2021-01-24] MEDS: ASPIRIN 81 MG ECTAB PO SCH (08:03)
[2021-01-24] MEDS: carvediloL 6.25 MG TAB PO SCH ×2 (08:03→20:06)
[2021-01-24] MEDS: FERROUS SULFATE 325 MG TAB PO SCH (08:04)
[2021-01-24] MEDS: dexAMETHasone 6 MG in SYRINGE 0 ML IV SCH (08:04)
[2021-01-24] MEDS: CEROVITE ADV FORMULA TAB PO SCH ×2 (08:05→20:06)
[2021-01-24] MEDS: ISOSORBIDE MONO EXTENDED REL 30 MG TABCR PO SCH ×2 (08:05→20:06)
[2021-01-24] MEDS: CLOPIDOGREL BISULFATE 75 MG TAB PO SCH (08:06)
[2021-01-24] MEDS: SODIUM BICARBONATE 650 MG TAB PO SCH ×3 (08:07→20:07)
[2021-01-24] MEDS: PANTOprazole 40 MG TAB PO SCH (08:07)
[2021-01-24] MEDS: CHOLECALCIFEROL 1,000 UNITS 25 MCG TAB PO SCH (08:08)
[2021-01-24 09:13] LABS: Albumin Level 2.5 gm/dl (3.4-5.0); BUN Creatinine Ratio 24.7 (10-20); Calcium 7.9 mg/dl (8.5-10.1); Creatinine Clr Calc Pharmacy 22.6 ml/min; Est GFR (African American) 22.1; Est GFR (Non-African American) 19.1; Potassium 3.5 mmol/L (3.5-5.1)
[2021-01-24 09:15] LABS: Phosphorus 3.1 mg/dl (2.5-4.9)
--- NOTE | 2021-01-24 09:58 | Nephrology Progress Note ---
Date of Service January 24, 2021 Assessment & Plan (1) LINDSAY (acute kidney injury): 60 y o m with stage 4 CKD, b/l cr around 2.5 to 2.6 secondary to atrophic right kidney chronic moderate to severe hydronephrosis with ureteral stricture. Has right BC AV graft placement in September 2020. Admitted with COVID pneumonia. Found to have LINDSAY, hyponatremia and metabolic acidosis. LINDSAY most likely prerenal with volume depletion with diarrhea nd poor po intake, which may have contributed to hyponatremia and acidosis. D Dimer elevated but LE venous Doppler negative for DVT. Renal function continues to improve although BUN elevated possibly some contribution from steroid. Acidosis improving, Na still low. --start on Nacl 1 gm BID --continue on Na bicarb 650 mg BID --renal panel and electrolyte daily --no need for IV fluid as long as po intake adequate. --continue dexamethasone. Will follow (2) Metabolic acidosis: (3) Pneumonia due to COVID-19 virus: (4) Acute hyponatremia: Admission and Anticipated Discharge Date Admission Date: January 22, 2021 Subjective Keron was seen and evaluated this morning. Has been having cough but so significant SOB. No F/C. BP acceptable. Cr better but Na still low. Review of Systems Review of Systems: All systems reviewed & are unremarkable except as noted in Subjective Physical Exam Constitutional: WD/WN, vitals as above + ill appearing; no acute distress Neck: + anterior neck swelling Respiratory: normal respiratory effort; no respiratory distress Auscultation: + rales Cardiovascular: RRR, no murmur, no edema Extremities: + AV fistula Skin: no rashes, warm and dry Neurologic: no focal motor deficits and not confused Psychiatric: A+Ox3, euthymic affect Results & Data ([facility]) Vital Signs (Past 12 Hours) Vital Signs Temp Pulse Pulse Resp BP Pulse Ox 01/24/21 07:48 36.5 C 78 20 109/67 95 01/24/21 04:59 84 01/24/21 04:58 36.6 C 80 22 108/67 100 01/23/21 22:44 36.7 C 81 18 113/66 93 PG Care Time/CCT Total # of Minutes Spent Total Time Spent with Patient: Total time spent is greater than 50% in coordination of care (as documented) at patient's floor/unit and/or counseling patient: Coding Level of Care Code 86553 Subseq Hosp Care Lvl 3 Diagnoses LINDSAY (acute kidney injury) N17.9 Metabolic acidosis E87.2 Pneumonia due to COVID-19 virus U07.1; J12.82 Acute hyponatremia E87.1
[2021-01-24] MEDS: HEPARIN SODIUM/DEXTROSE 25,000 UNITS/500 ML BAG IV SCH (10:30)
[2021-01-24] MEDS: SODIUM CHLORIDE 1 GM TABLET PO SCH ×2 (12:09→20:07)
[2021-01-24] MEDS: UMECLIDINIUM BROMIDE 62.5MCG/BLISTER 7 PUFFS/INHALER INH SCH (12:09)
[2021-01-24 13:52] LABS: Basophils # (auto) 0.01 K/uL (0-0.2); Basophils % (auto) 0.2 %; Hematocrit (blood only) 33.9 % (42-52); Hemoglobin 11.7 g/dL (14.0-18.0); Immature Granulocytes # (auto) 0.01 K/uL (0.00-0.02); Immature Granulocytes % (auto) 0.2 %; Lymphocytes # (auto) 0.33 K/uL (1.2-3.4); Lymphocytes % (auto) 5.1 %; Mean Corpuscular Hemoglobin 32.1 pg (25-34); Mean Corpuscular Hgb Conc 34.5 g/dL (32-36); Mean Corpuscular Volume 92.9 fL (80-100); Mean Platelet Volume 10.4 fL (7.4-10.4); Monocytes # (auto) 0.22 K/uL (0.11-0.59); Monocytes % (auto) 3.4 %; Neutrophils # (auto) 5.91 K/uL (1.4-6.5); Neutrophils % (auto) 91.1 %; Platelet Count 202 K/uL (130-400); RDW Coefficient of Variation 13.6 % (11.5-14.5); RDW Standard Deviation 46.3 fL (36.4-46.3); Red Blood Count 3.65 M/uL (4.7-6.1); White Blood Count 6.48 K/uL (4.8-10.8)
[2021-01-24 14:04] LABS: Partial Thromboplastin Ratio 1.1; Partial Thromboplastin Time 28.1 Seconds (21.0-31.0)
--- NOTE | 2021-01-24 19:17 | Hospitalist Progress Note ---
Date of Service January 24, 2021 Assessment & Plan (1) Pneumonia due to COVID-19 virus: Not candidate for remdesivir due to EGFR less than 30. 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 Baseline surfacer 2.5-2.6 Likely secondary to prerenal, dehydration from N/V/D from COVID Initially txd with IVF hydration Improving daily--> today surfacer down to 3.28, BUN up slightly to 80 likely from steroids -continue kelley cath to closely monitor urine output BMP with AM labs Suspect his uremia is causing his anion gap without acidosis -encourage PO intake, drinking better K is stable consulted Dr. Handy-appreciated sodium bicarb added for metabolic acidosis -adding NaCl tabs now for hyponatremia -he has RUE fistula in place if needed for HD (3) Diarrhea: This appears to be his main symptom of COVID as he has minimal O2 requirement Now resolved x 3 days continue Imodium PRN (4) Bilateral pleural effusion: Suspect chronic rather than acute CHF (5) Elevated procalcitonin: Mildly elevated likely secondary to LINDSAY No need for antibiotics. (6) Elevated d-dimer: Initially concerning for PE in setting of COVID-19 PNA. No CTA could be obtained due to renal failure no chest pain, hemodynamically stable, no tachycardia -initially started on IV heparin drip and was supratherapeutic multiple occasions most likely it is just due to COVID Bilat LE venous dopplers negative--> stopped heparin gtt today -start Lovenox 0.5mg/kg q12h for DVT proph (7) Acute hyponatremia: Suspect due torsemide use and dehydration in setting of chronic hyponatremia, LINDSAY also contributing stable at 127, not improving -start NaCl 1 gm bid as per Nephro holding diuretics (8) Ischemic cardiomyopathy: LVEF 30-34% Continue carvedilol but hold losartan due to LINDSAY has ICD in place (9) Systolic CHF: Appears hypovolemic on admission despite BNP and XR findings Hold torsemide drinking better today, no need for IV fluids (10) CAD (coronary artery disease): With a h/o multiple MARY placed -Continue ASA, clopidogrel, carvedilol, atorvastatin, isosorbide (11) Hypertension: Continue carvedilol Continue ISMN to avoid angina Hold torsemide, hydralazine and losartan to allow improved perfusion (12) COPD (chronic obstructive pulmonary disease): No current exacerbation. continue LAMA (13) Elevated lactic acid level: Resolved with IV fluids given in ER (14) Metabolic acidosis: HCO3 improved today to 20 after starting NaHCO3 tabs -continue such follow BMP in AM (15) Anemia: mild, likely Fe def from previous plus anemia of CKD continue FeSO4 (16) Chronic kidney disease, stage 4 (severe): as above -Avoid nephrotoxins -renally dose meds when appropriate -follow BMP (17) Peripheral vascular disease: with a h/o multiple surgeries of LEs for PAD, also with SFA and SMA stenosis continue ASA, Plavix, atorvastatin (18) DVT prophylaxis: IV heparin drip now dcd and started Lovenox Dispo-continued stay on med-tele Admission and Anticipated Discharge Date Admission Date: January 22, 2021 Subjective Pt reports he doesn't feel much better than when he came in although he does state that his N/V/D have all resolved. In fact, he hasn't moved his bowels at all in 3 days. No abd pain. He is making urine. He feels generally "sick." He is happy to hear his kidney function is improving. He is eating and drinking as much as he can. He is having some pain in his gums. Tele with paced rhythm in the 70-80s Review of Systems Review of Systems: All systems reviewed & are unremarkable except as noted in HPI & below Physical Exam Constitutional: WD/WN, vitals as above Eyes: + anicteric sclerae ENMT: Ears: no hearing impairment and no external ear abnormality Mouth: + gingival abnormality Neck: trachea midline, no thyromegaly Respiratory: normal respiratory effort, lungs clear to auscultation Cardiovascular: RRR, no murmur, no edema Chest (Breasts): Chest: normal inspection of chest Gastrointestinal (Abdomen): normal bowel sounds, soft, nontender, no hepatosplenomegaly Musculoskeletal: Extremities: extremities normal to inspection; no cyanosis and no clubbing Skin: no rashes, warm and dry Neurologic: moves all extremities and awake; no focal motor deficits Psychiatric: A+Ox3, euthymic affect Lymphatic: no lymphedema Results & Data Results & Data ([facility]) Vital Signs (Past 12 Hours) Vital Signs Temp Pulse Pulse Resp BP Pulse Ox 01/24/21 19:00 36.5 C 81 20 119/74 95 01/24/21 15:00 72 01/24/21 14:30 36.4 C L 78 18 116/69 95 01/24/21 12:12 36.5 C 80 20 92 01/24/21 10:37 73 01/24/21 07:48 36.5 C 78 20 109/67 95 Laboratory Results 01/24/21 01/24/21 01/24/21 Range/Units 13:41 13:41 05:35 WBC 6.48 (4.8-10.8) K/uL RBC 3.65 L (4.7-6.1) M/uL Hgb 11.7 L (14.0-18.0) g/dL Hct 33.9 L (42-52) % MCV 92.9 (80-100) fL MCH 32.1 (25-34) pg MCHC 34.5 (32-36) g/dL RDW Std Deviation 46.3 (36.4-46.3) fL RDW Coeff of Monika 13.6 (11.5-14.5) % Plt Count 202 (130-400) K/uL MPV 10.4 (7.4-10.4) fL Immature Gran % (Auto) 0.2 % Neut % (Auto) 91.1 % Lymph % (Auto) 5.1 % [place] % (Auto) 3.4 % Eos % (Auto) 0.0 % Baso % (Auto) 0.2 % Neut # (Auto) 5.91 (1.4-6.5) K/uL Lymph # (Auto) 0.33 L (1.2-3.4) K/uL [place] # (Auto) 0.22 (0.11-0.59) K/uL Eos # (Auto) 0.00 (0-0.5) K/uL Baso # (Auto) 0.01 (0-0.2) K/uL Immature Gran # (Auto) 0.01 (0.00-0.02) K/uL APTT 28.1 (21.0-31.0) Seconds PTT Ratio 1.1 Sodium 127 L (136-145) mmol/L Potassium 3.5 (3.5-5.1) mmol/L Chloride 95 L (98-107) mmol/L Carbon Dioxide 20 L (21-32) mmol/L Anion Gap 12.0 H (3-11) BUN 81 H (7-18) mg/dl Creatinine 3.28 H (0.6-1.4) mg/dl Est Cr Clr Drug Dosing 22.6 ml/min Est GFR ( Amer) 22.1 Est GFR (Non-Af Amer) 19.1 BUN/Creatinine Ratio 24.7 H (10-20) Glucose 152 H (70-99) mg/dl Calcium 7.9 L (8.5-10.1) mg/dl Phosphorus 3.1 (2.5-4.9) mg/dl Albumin 2.5 L (3.4-5.0) gm/dl Procalcitonin (0-0.5) ng/ml 01/24/21 01/24/21 Range/Units 05:34 05:34 WBC (4.8-10.8) K/uL RBC (4.7-6.1) M/uL Hgb (14.0-18.0) g/dL Hct (42-52) % MCV (80-100) fL MCH (25-34) pg MCHC (32-36) g/dL RDW Std Deviation (36.4-46.3) fL RDW Coeff of Monika (11.5-14.5) % Plt Count (130-400) K/uL MPV (7.4-10.4) fL Immature Gran % (Auto) % Neut % (Auto) % Lymph % (Auto) % [place] % (Auto) % Eos % (Auto) % Baso % (Auto) % Neut # (Auto) (1.4-6.5) K/uL Lymph # (Auto) (1.2-3.4) K/uL [place] # (Auto) (0.11-0.59) K/uL Eos # (Auto) (0-0.5) K/uL Baso # (Auto) (0-0.2) K/uL Immature Gran # (Auto) (0.00-0.02) K/uL APTT 100.2 H* (21.0-31.0) Seconds PTT Ratio 3.8 Sodium (136-145) mmol/L Potassium (3.5-5.1) mmol/L Chloride (98-107) mmol/L Carbon Dioxide (21-32) mmol/L Anion Gap (3-11) BUN (7-18) mg/dl Creatinine (0.6-1.4) mg/dl Est Cr Clr Drug Dosing ml/min Est GFR ( Amer) Est GFR (Non-Af Amer) BUN/Creatinine Ratio (10-20) Glucose (70-99) mg/dl Calcium (8.5-10.1) mg/dl Phosphorus (2.5-4.9) mg/dl Albumin (3.4-5.0) gm/dl Procalcitonin 0.53 H (0-0.5) ng/ml PG Care Time/CCT Total # of Minutes Spent Total Time Spent with Patient: Total time spent is greater than 50% in coordination of care (as documented) at patient's floor/unit and/or counseling patient: Coding Level of Care Code 19739 Subseq Hosp Care Lvl 3 Diagnoses Pneumonia due to COVID-19 virus U07.1; J12.82 LINDSAY (acute kidney injury) N17.9 Diarrhea R19.7 Bilateral pleural effusion J90 Elevated procalcitonin R79.89 Elevated d-dimer R79.89 Acute hyponatremia E87.1 Ischemic cardiomyopathy I25.5 Systolic CHF I50.22 Heart failure chronicity: chronic CAD (coronary artery disease) I25.10 Associated angina: without angina Coronary Disease-Associated Artery/Lesion type: [place] artery [place] vs. transplanted heart: [place] heart Hypertension I10 Hypertension type: essential hypertension COPD (chronic obstructive pulmonary disease) J44.9 Elevated lactic acid level R79.89 Metabolic acidosis E87.2 Anemia D64.9 Chronic kidney disease, stage 4 (severe) N18.4 Peripheral vascular disease I73.9 DVT prophylaxis Z29.9 (1) Systolic CHF Heart failure chronicity: chronic Qualified Code(s): I50.22 - Chronic systolic (congestive) heart failure (2) CAD (coronary artery disease) Associated angina: without angina Coronary Disease-Associated Artery/Lesion type: [place] artery [place] vs. transplanted heart: [place] heart Qualified Code(s): I25.10 - Atherosclerotic heart disease of [place] coronary artery without angina pectoris (3) Hypertension Hypertension type: essential hypertension Qualified Code(s): I10 - Essential (primary) hypertension
[2021-01-24] MEDS ORDERED: ACETAMINOPHEN 500 MG TAB PO PRN (19:59)
[2021-01-24] MEDS: ENOXAPARIN INJ 40 MG/0.4 ML SYR SQ SCH (20:07)
[2021-01-24] MEDS: ATORVASTATIN 40 MG TAB PO SCH (20:07)
[2021-01-25 06:42] LABS: Albumin Level 2.4 gm/dl (3.4-5.0); BUN Creatinine Ratio 26.8 (10-20); Calcium 8.1 mg/dl (8.5-10.1); Creatinine Clr Calc Pharmacy 24.4 ml/min; Est GFR (African American) 24.3; Est GFR (Non-African American) 20.9; Phosphorus 2.9 mg/dl (2.5-4.9); Potassium 3.5 mmol/L (3.5-5.1)
[2021-01-25] MEDS: carvediloL 6.25 MG TAB PO SCH ×2 (08:37→21:30)
[2021-01-25] MEDS: dexAMETHasone 6 MG in SYRINGE 0 ML IV SCH (08:37)
[2021-01-25] MEDS: ASPIRIN 81 MG ECTAB PO SCH (08:38)
[2021-01-25] MEDS: FERROUS SULFATE 325 MG TAB PO SCH (08:39)
[2021-01-25] MEDS: ISOSORBIDE MONO EXTENDED REL 30 MG TABCR PO SCH ×2 (08:39→21:30)
[2021-01-25] MEDS: ENOXAPARIN INJ 40 MG/0.4 ML SYR SQ SCH (08:40)
[2021-01-25] MEDS: CEROVITE ADV FORMULA TAB PO SCH ×2 (08:42→21:29)
[2021-01-25] MEDS: PANTOprazole 40 MG TAB PO SCH (08:43)
[2021-01-25] MEDS: CLOPIDOGREL BISULFATE 75 MG TAB PO SCH (08:43)
[2021-01-25] MEDS: SODIUM BICARBONATE 650 MG TAB PO SCH ×3 (08:43→21:29)
[2021-01-25] MEDS: CHOLECALCIFEROL 1,000 UNITS 25 MCG TAB PO SCH (08:44)
[2021-01-25] MEDS: SODIUM CHLORIDE 1 GM TABLET PO SCH ×2 (08:44→21:29)
--- NOTE | 2021-01-25 10:24 | Nephrology Progress Note ---
Date of Service January 25, 2021 Assessment & Plan (1) LINDSAY (acute kidney injury): 60 y o m with stage 4 CKD, b/l cr around 2.5 to 2.6 secondary to atrophic right kidney chronic moderate to severe hydronephrosis with ureteral stricture. Has right BC AV graft placement in September 2020. Admitted with COVID pneumonia. Found to have LINDSAY, hyponatremia and metabolic acidosis. LINDSAY most likely prerenal with volume depletion with diarrhea nd poor po intake, which may have contributed to hyponatremia and acidosis. D Dimer elevated but LE venous Doppler negative for DVT. Renal function continues to improve although BUN elevated possibly some contribution from steroid. Acidosis, Hyponatremia improving. --continue on Nacl 1 gm BID, Na bicarb 650 mg BID --renal panel and electrolyte daily --no need for IV fluid as long as po intake adequate. --continue dexamethasone. Will follow (2) Metabolic acidosis: (3) Pneumonia due to COVID-19 virus: (4) Acute hyponatremia: Admission and Anticipated Discharge Date Admission Date: January 22, 2021 Subjective Keron was seen and evaluated this morning. Continues to have cough but no significant SOB, overall feels poorly. Appetite has been OK. No F/C. BP acceptable. Cr close to baseline, Na improving, K acceptable. Review of Systems Review of Systems: All systems reviewed & are unremarkable except as noted in Subjective Physical Exam Constitutional: WD/WN, vitals as above + ill appearing; no acute distress Respiratory: normal respiratory effort, + cough and + tachypneic; no respiratory distress Auscultation: + crackles and + rales; no wheezes Cardiovascular: RRR, no murmur, no edema Rate/Rhythm: regular rate and regular rhythm Heart Sounds: normal S1 and normal S2 Extremities: + AV fistula; no edema Gastrointestinal (Abdomen): normal bowel sounds, soft, nontender, no hepatosplenomegaly Percussion/Palpation: abdomen nontender, no guarding and abdomen not rigid Skin: no rashes, warm and dry Neurologic: moves all extremities and awake; no focal motor deficits and not confused Psychiatric: A+Ox3, euthymic affect Results & Data ([facility]) Vital Signs (Past 12 Hours) Vital Signs Temp Pulse Pulse Resp BP Pulse Ox 01/25/21 08:31 36.4 C L 74 18 118/69 96 01/25/21 07:27 68 01/25/21 03:39 36.5 C 70 18 114/70 96 01/24/21 23:11 36.4 C L 78 18 118/69 97 PG Care Time/CCT Total # of Minutes Spent Total Time Spent with Patient: Total time spent is greater than 50% in coordinat ion of care (as documented) at patient's floor/unit and/or counseling patient: Coding Level of Care Code 63002 Subseq Hosp Care Lvl 3 Diagnoses LINDSAY (acute kidney injury) N17.9 Metabolic acidosis E87.2 Pneumonia due to COVID-19 virus U07.1; J12.82 Acute hyponatremia E87.1
[2021-01-25] MEDS: UMECLIDINIUM BROMIDE 62.5MCG/BLISTER 7 PUFFS/INHALER INH SCH (12:39)
--- NOTE | 2021-01-25 14:23 | Hospitalist Progress Note ---
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 Handy-appreciated sodium bicarb added for metabolic acidosis -added NaCl tabs for hyponatremia which is finally improving -he has RUE fistula in place if needed for HD (2) Pneumonia due to COVID-19 virus: Not candidate for remdesivir due to EGFR less than 30. Was requiring 2L NC and now weaned down to 1 L nasal cannula, started on dexamethasone 6mg IV on 01/22--> last day of tx will be 01/31 he is breathing comfortably at rest, has a dry cough monitor for any signs of worsening breathing He had small amount of hemoptysis today and his Lovenox will be discontinued and replaced with heparin given his renal dysfunction (3) Diarrhea: This appears to be his main symptom of COVID as he has minimal O2 requirement Now resolved for many days continue Imodium PRN (4) Bilateral pleural effusion: Suspect chronic rather than acute CHF (5) Elevated procalcitonin: Mildly elevated likely secondary to LINDSAY No need for antibiotics. (6) Elevated d-dimer: Initially concerning for PE in setting of COVID-19 PNA. No CTA could be obtained due to renal failure no chest pain, hemodynamically stable, no tachycardia -initially started on IV heparin drip and was supratherapeutic multiple occasions most likely it is just due to COVID Bilat LE venous dopplers negative--> stopped heparin gtt and converted to Lovenox SQ, however given renal dysfunction, will transition to heparin SQ today (7) Acute hyponatremia: Suspect due torsemide use and dehydration in setting of chronic hyponatremia, LINDSAY also contributing Finally improved 129 today -Continue NaCl 1 gm bid as per Nephro holding diuretics (8) Ischemic cardiomyopathy: LVEF 30-34% Continue carvedilol but hold losartan due to LINDSAY has ICD in place (9) Systolic CHF: Appears hypovolemic on admission despite BNP and XR findings Hold torsemide drinking better today, no need for IV fluids (10) CAD (coronary artery disease): With a h/o multiple MARY placed -Continue ASA, clopidogrel, carvedilol, atorvastatin, isosorbide (11) Hypertension: Continue carvedilol Continue ISMN to avoid angina Hold torsemide, hydralazine and losartan to allow improved perfusion (12) COPD (chronic obstructive pulmonary disease): No current exacerbation. continue LAMA (13) Elevated lactic acid level: Resolved with IV fluids given in ER (14) Metabolic acidosis: HCO3 improved to 20 after starting NaHCO3 tabs -continue such follow BMP in AM (15) Anemia: mild, likely Fe def from previous plus anemia of CKD continue FeSO4 Follow CBC in the morning (16) Chronic kidney disease, stage 4 (severe): as above -Avoid nephrotoxins -renally dose meds when appropriate -follow BMP (17) Peripheral vascular disease: with a h/o multiple surgeries of LEs for PAD, also with SFA and SMA stenosis continue ASA, Plavix, atorvastatin (18) DVT prophylaxis: IV heparin drip now dcd and now on SQ heparin Dispo-continued stay on med-tele, but may be able to be discharged in the next 2 days if renal function continues to improve Admission and Anticipated Discharge Date Admission Date: January 22, 2021 Subjective Patient feeling a bit better today. He is out of bed to chair. He is weaned to 1 L nasal cannula and pulse ox was 96% when he was talking to me on that. He coughed up a $0.50 piece sized amount of red blood today. Denies any chest pain or shortness of breath. He is making urine. He has not had a bowel movement in several days. Telemetry with paced rhythm in the 70s Review of Systems Review of Systems: All systems reviewed & are unremarkable except as noted in HPI & below Physical Exam Constitutional: WD/WN, vitals as above Eyes: + anicteric sclerae ENMT: Ears: no hearing impairment and no external ear abnormality Mouth: + gingival abnormality Neck: trachea midline, no thyromegaly Respiratory: normal respiratory effort, lungs clear to auscultation Cardiovascular: RRR, no murmur, no edema Chest (Breasts): Chest: normal inspection of chest Gastrointestinal (Abdomen): normal bowel sounds, soft, nontender, no hepatosplenomegaly Musculoskeletal: Extremities: extremities normal to inspection; no cyanosis and no clubbing Skin: no rashes, warm and dry Neurologic: moves all extremities and awake; no focal motor deficits Psychiatric: A+Ox3, euthymic affect Genitourinary: Kelley catheter in place draining dark yellow clear urine Lymphatic: no lymphedema Results & Data Results & Data ([facility]) Vital Signs (Past 12 Hours) Vital Signs Temp Pulse Pulse Resp BP Pulse Ox 01/25/21 12:28 36.3 C L 74 18 125/69 94 01/25/21 08:31 36.4 C L 74 18 118/69 96 01/25/21 07:27 68 01/25/21 03:39 36.5 C 70 18 114/70 96 Laboratory Results 01/25/21 Range/Units 05:31 Sodium 129 L (136-145) mmol/L Potassium 3.5 (3.5-5.1) mmol/L Chloride 98 (98-107) mmol/L Carbon Dioxide 20 L (21-32) mmol/L Anion Gap 11.0 (3-11) BUN 81 H (7-18) mg/dl Creatinine 3.04 H (0.6-1.4) mg/dl Est Cr Clr Drug Dosing 24.4 ml/min Est GFR ( Amer) 24.3 Est GFR (Non-Af Amer) 20.9 BUN/Creatinine Ratio 26.8 H (10-20) Glucose 138 H (70-99) mg/dl Calcium 8.1 L (8.5-10.1) mg/dl Phosphorus 2.9 (2.5-4.9) mg/dl Albumin 2.4 L (3.4-5.0) gm/dl PG Care Time/CCT Total # of Minutes Spent Total Time Spent with Patient: Total time spent is greater than 50% in coordination of care (as documented) at patient's floor/unit and/or counseling patient: Coding Level of Care Code 10325 Subseq Hosp Care Lvl 2 Diagnoses LINDSAY (acute kidney injury) N17.9 Pneumonia due to COVID-19 virus U07.1; J12.82 Diarrhea R19.7 Bilateral pleural effusion J90 Elevated procalcitonin R79.89 Elevated d-dimer R79.89 Acute hyponatremia E87.1 Ischemic cardiomyopathy I25.5 Systolic CHF I50.22 Heart failure chronicity: chronic CAD (coronary artery disease) I25.10 Coronary Disease-Associated Artery/Lesion type: [place] artery [place] vs. transplanted heart: [place] heart Associated angina: without angina Hypertension I10 Hypertension type: essential hypertension COPD (chronic obstructive pulmonary disease) J44.9 Elevated lactic acid level R79.89 Metabolic acidosis E87.2 Anemia D64.9 Chronic kidney disease, stage 4 (severe) N18.4 Peripheral vascular disease I73.9 DVT prophylaxis Z29.9 (1) Systolic CHF Heart failure chronicity: chronic Qualified Code(s): I50.22 - Chronic systolic (congestive) heart failure (2) CAD (coronary artery disease) Coronary Disease-Associated Artery/Lesion type: [place] artery [place] vs. transplanted heart: [place] heart Associated angina: without angina Qualified Code(s): I25.10 - Atherosclerotic heart disease of [place] coronary artery without angina pectoris (3) Hypertension Hypertension type: essential hypertension Qualified Code(s): I10 - Essential (primary) hypertension
[2021-01-25] MEDS: HEPARIN SOD 5,000 UNIT/0.5 ML VIAL SC SCH (21:30)
[2021-01-25] MEDS: ATORVASTATIN 40 MG TAB PO SCH (21:30)
[2021-01-26] MEDS: HEPARIN SOD 5,000 UNIT/0.5 ML VIAL SC SCH ×3 (06:17→21:08)
[2021-01-26 06:19] LABS: Basophils # (auto) 0.01 K/uL (0-0.2); Basophils % (auto) 0.2 %; Hematocrit (blood only) 33.9 % (42-52); Hemoglobin 11.7 g/dL (14.0-18.0); Immature Granulocytes # (auto) 0.01 K/uL (0.00-0.02); Immature Granulocytes % (auto) 0.2 %; Lymphocytes # (auto) 0.51 K/uL (1.2-3.4); Lymphocytes % (auto) 8.4 %; Mean Corpuscular Hemoglobin 32.1 pg (25-34); Mean Corpuscular Hgb Conc 34.5 g/dL (32-36); Mean Corpuscular Volume 92.9 fL (80-100); Mean Platelet Volume 10.3 fL (7.4-10.4); Monocytes % (auto) 9.9 %; Neutrophils # (auto) 4.96 K/uL (1.4-6.5); Neutrophils % (auto) 81.3 %; Platelet Count 239 K/uL (130-400); RDW Coefficient of Variation 13.8 % (11.5-14.5); RDW Standard Deviation 46.7 fL (36.4-46.3); Red Blood Count 3.65 M/uL (4.7-6.1); White Blood Count 6.09 K/uL (4.8-10.8)
[2021-01-26 06:43] LABS: Albumin Level 2.6 gm/dl (3.4-5.0); BUN Creatinine Ratio 29.5 (10-20); Calcium 7.8 mg/dl (8.5-10.1); Creatinine Clr Calc Pharmacy 25.6 ml/min; Est GFR (African American) 25.7; Est GFR (Non-African American) 22.2; Potassium 3.8 mmol/L (3.5-5.1)
[2021-01-26 06:53] LABS: Phosphorus 2.1 mg/dl (2.5-4.9)
[2021-01-26] MEDS: FERROUS SULFATE 325 MG TAB PO SCH (08:18)
[2021-01-26] MEDS: ISOSORBIDE MONO EXTENDED REL 30 MG TABCR PO SCH ×2 (08:18→21:09)
[2021-01-26] MEDS: CLOPIDOGREL BISULFATE 75 MG TAB PO SCH (08:18)
[2021-01-26] MEDS: ASPIRIN 81 MG ECTAB PO SCH (08:18)
[2021-01-26] MEDS: carvediloL 6.25 MG TAB PO SCH ×2 (08:18→21:10)
[2021-01-26] MEDS: dexAMETHasone 6 MG in SYRINGE 0 ML IV SCH (08:18)
[2021-01-26] MEDS: CEROVITE ADV FORMULA TAB PO SCH ×2 (08:18→21:08)
[2021-01-26] MEDS: SODIUM CHLORIDE 1 GM TABLET PO SCH ×2 (08:19→21:08)
[2021-01-26] MEDS: CHOLECALCIFEROL 1,000 UNITS 25 MCG TAB PO SCH (08:19)
[2021-01-26] MEDS: PANTOprazole 40 MG TAB PO SCH (08:19)
[2021-01-26] MEDS: SODIUM BICARBONATE 650 MG TAB PO SCH ×3 (08:19→21:08)
[2021-01-26] MEDS ORDERED: COUGH DROP (SUGAR FREE) LOZ 24 LOZ/1 BOX BUCCAL PRN (09:24)
--- NOTE | 2021-01-26 10:31 | Nephrology Progress Note ---
Date of Service January 26, 2021 Assessment & Plan (1) LINDSAY (acute kidney injury): 60 y o m with stage 4 CKD, b/l cr around 2.5 to 2.6 secondary to atrophic right kidney chronic moderate to severe hydronephrosis with ureteral stricture. Has right BC AV graft placement in September 2020. Admitted with COVID pneumonia. Found to have LINDSAY, hyponatremia and metabolic acidosis. LINDSAY most likely prerenal with volume depletion with diarrhea nd poor po intake, which may have contributed to hyponatremia and acidosis. D Dimer elevated but LE venous Doppler negative for DVT. Renal function close to baseline. Electrolyte acceptable, sodium improving. --continue on Nacl 1 gm BID, Na bicarb 650 mg BID --renal panel and electrolyte daily --no need for IV fluid as long as po intake adequate. --continue dexamethasone. Will sign off but will be available for any question or concern. (2) Metabolic acidosis: (3) Pneumonia due to COVID-19 virus: (4) Acute hyponatremia: Admission and Anticipated Discharge Date Admission Date: January 22, 2021 Subjective Keron was seen and evaluated this morning. Continues to have cough but no SOB, overall feels about the same. Appetite has been OK. No F/C. BP acceptable. Cr close to baseline, Na improving, K acceptable. Review of Systems Review of Systems: All systems reviewed & are unremarkable except as noted in Subjective Physical Exam Constitutional: WD/WN, vitals as above + ill appearing; no acute distress Respiratory: normal respiratory effort, lungs clear to auscultation Cardiovascular: RRR, no murmur, no edema Gastrointestinal (Abdomen): Inspection/Auscultation: normal bowel sounds Percussion/Palpation: abdomen soft; abdomen nontender Skin: no rashes, warm and dry Neurologic: no focal motor deficits and not confused Psychiatric: A+Ox3, euthymic affect Results & Data ([facility]) Vital Signs (Past 12 Hours) Vital Signs Temp Pulse Pulse Resp BP Pulse Ox Pulse Ox 01/26/21 09:16 75 01/26/21 08:08 36.3 C L 78 20 126/74 92 01/26/21 04:25 96 01/26/21 03:20 36.6 C 80 18 126/73 96 01/26/21 01:16 79 01/25/21 23:00 36.4 C L 79 18 130/74 93 PG Care Time/CCT Total # of Minutes Spent Total Time Spent with Patient: Total time spent is greater than 50% in coordination of care (as documented) at patient's floor/unit and/or counseling patient: Coding Level of Care Code 72172 Subseq Hosp Care Lvl 3 Diagnoses LINDSAY (acute kidney injury) N17.9 Metabolic acidosis E87.2 Pneumonia due to COVID-19 virus U07.1; J12.82 Acute hyponatremia E87.1
[2021-01-26] MEDS ORDERED: POLYETHYLENE (MIRALAX) 17 GM PACK PO ONE (11:00)
--- NOTE | 2021-01-26 12:07 | Hospitalist Progress Note ---
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 Handy-appreciated and now signed off, f/u as outpt sodium bicarb added for metabolic acidosis -added NaCl tabs for hyponatremia which is finally improving -he has RUE fistula in place if needed for HD -holding home torsemide and losartan (2) Pneumonia due to COVID-19 virus: Not candidate for remdesivir due to EGFR less than 30. Was requiring 2L NC and now weaned down to 0.5 LNC, started on dexamethasone 6mg IV on 01/22--> last day of tx will be 01/31 he is breathing comfortably at rest, has a dry cough monitor for any signs of worsening breathing He had small amount of hemoptysis on 2 occasions, very scant -ok to continue SQ heparin (3) Diarrhea: This appears to be his main symptom of COVID as he has minimal O2 requirement Now resolved for many days and actually constipated now-requesting Miralax (4) Bilateral pleural effusion: Suspect chronic rather than acute CHF (5) Elevated procalcitonin: Mildly elevated likely secondary to LINDSAY No need for antibiotics. (6) Elevated d-dimer: Initially concerning for PE in setting of COVID-19 PNA. No CTA could be obtained due to renal failure no chest pain, hemodynamically stable, no tachycardia -initially started on IV heparin drip and was supratherapeutic multiple occasions most likely it is just due to COVID Bilat LE venous dopplers negative--> stopped heparin gtt and converted to heparin SQ (7) Acute hyponatremia: Suspect due torsemide use and dehydration from diarrhea x 8 days in setting of chronic hyponatremia, LINDSAY also contributing continues to improve to 131 -Continue NaCl 1 gm bid as per Nephro holding diuretics (8) Ischemic cardiomyopathy: LVEF 30-34% Continue carvedilol but hold losartan due to LINDSAY has ICD in place (9) Systolic CHF: Appears hypovolemic on admission despite BNP and XR findings Hold torsemide drinking better today, no need for IV fluids (10) CAD (coronary artery disease): With a h/o multiple MARY placed -Continue ASA, clopidogrel, carvedilol, atorvastatin, isosorbide (11) Hypertension: Continue carvedilol Continue ISMN to avoid angina Hold torsemide, hydralazine and losartan to allow improved perfusion (12) COPD (chronic obstructive pulmonary disease): No current exacerbation. continue LAMA (13) Elevated lactic acid level: Resolved with IV fluids given in ER (14) Metabolic acidosis: HCO3 improved to 22 after starting NaHCO3 tabs -continue such follow BMP in AM (15) Anemia: mild, likely Fe def from previous plus anemia of CKD continue FeSO4 hgb stable today at 11.7 (16) Chronic kidney disease, stage 4 (severe): as above, 2/2 chronic ureteral stricture and hydronephrosis -Avoid nephrotoxins -renally dose meds when appropriate -follow BMP (17) Peripheral vascular disease: with a h/o multiple surgeries of LEs for PAD, also with SFA and SMA stenosis continue ASA, Plavix, atorvastatin (18) DVT prophylaxis: IV heparin drip now dcd and now on SQ heparin Dispo-continued stay on med-tele, but may be able to be discharged in the next 2 days if renal function continues to improve and feeling better Will consult PT/OT to get him out of bed and moving Will need a 2 step walk test prior to discharge he does live alone but has 6 sisters who help him out Remain on COVID precautions through 01/30 Admission and Anticipated Discharge Date Admission Date: January 22, 2021 Subjective Pt reports feeling lightheaded with standing today. Orthostatics done later and were normal. He is still coughing and coughed up a scant amount of blood into a tissue which he showed me. No chest pain, no SOB, is weaned down to 0.5L NC, POx 92%. He is eating and drinking. [place] too tired to get out of bed today but this was encouraged. States "everybody says I'm doing better and I look better, but I don't feel better." Tele with paced rhythm, rates 70s I discussed his care with Nephrology on the phone Review of Systems Review of Systems: All systems reviewed & are unremarkable except as noted in HPI & below Physical Exam Constitutional: WD/WN, vitals as above Eyes: + anicteric sclerae ENMT: Ears: no hearing impairment and no external ear abnormality Mouth: + gingival abnormality (mild erythema of gums, edentulous on top) Neck: trachea midline, no thyromegaly Respiratory: normal respiratory effort and + cough Auscultation: + crackles (bibasilar); no rhonchi and no wheezes Cardiovascular: RRR, no murmur, no edema Chest (Breasts): Chest: normal inspection of chest Gastrointestinal (Abdomen): normal bowel sounds, soft, nontender, no hepatosplenomegaly Musculoskeletal: Extremities: extremities normal to inspection; no cyanosis and no clubbing Skin: no rashes, warm and dry Neurologic: moves all extremities and awake; no focal motor deficits Psychiatric: A+Ox3, euthymic affect Lymphatic: no lymphedema Results & Data Results & Data ([facility]) Vital Signs (Past 12 Hours) Vital Signs Temp Pulse Pulse Resp BP Pulse Ox Pulse Ox 01/26/21 09:16 75 01/26/21 08:08 36.3 C L 78 20 126/74 92 01/26/21 04:25 96 01/26/21 03:20 36.6 C 80 18 126/73 96 01/26/21 01:16 79 Laboratory Results 01/26/21 01/26/21 Range/Units 05:59 05:59 WBC 6.09 (4.8-10.8) K/uL RBC 3.65 L (4.7-6.1) M/uL Hgb 11.7 L (14.0-18.0) g/dL Hct 33.9 L (42-52) % MCV 92.9 (80-100) fL MCH 32.1 (25-34) pg MCHC 34.5 (32-36) g/dL RDW Std Deviation 46.7 H (36.4-46.3) fL RDW Coeff of Monika 13.8 (11.5-14.5) % Plt Count 239 (130-400) K/uL MPV 10.3 (7.4-10.4) fL Immature Gran % (Auto) 0.2 % Neut % (Auto) 81.3 % Lymph % (Auto) 8.4 % [place] % (Auto) 9.9 % Eos % (Auto) 0.0 % Baso % (Auto) 0.2 % Neut # (Auto) 4.96 (1.4-6.5) K/uL Lymph # (Auto) 0.51 L (1.2-3.4) K/uL [place] # (Auto) 0.60 H (0.11-0.59) K/uL Eos # (Auto) 0.00 (0-0.5) K/uL Baso # (Auto) 0.01 (0-0.2) K/uL Immature Gran # (Auto) 0.01 (0.00-0.02) K/uL Sodium 131 L (136-145) mmol/L Potassium 3.8 (3.5-5.1) mmol/L Chloride 101 (98-107) mmol/L Carbon Dioxide 22 (21-32) mmol/L Anion Gap 9.0 (3-11) BUN 86 H (7-18) mg/dl Creatinine 2.90 H (0.6-1.4) mg/dl Est Cr Clr Drug Dosing 25.6 ml/min Est GFR ( Amer) 25.7 Est GFR (Non-Af Amer) 22.2 BUN/Creatinine Ratio 29.5 H (10-20) Glucose 144 H (70-99) mg/dl Calcium 7.8 L (8.5-10.1) mg/dl Phosphorus 2.1 L (2.5-4.9) mg/dl Albumin 2.6 L (3.4-5.0) gm/dl PG Care Time/CCT Total # of Minutes Spent Total Time Spent with Patient: Total time spent is greater than 50% in coordination of care (as documented) at patient's floor/unit and/or counseling patient: Coding Level of Care Code 19939 Subseq Hosp Care Lvl 3 Diagnoses LINDSAY (acute kidney injury) N17.9 Pneumonia due to COVID-19 virus U07.1; J12.82 Diarrhea R19.7 Bilateral pleural effusion J90 Elevated procalcitonin R79.89 Elevated d-dimer R79.89 Acute hyponatremia E87.1 Ischemic cardiomyopathy I25.5 Systolic CHF I50.22 Heart failure chronicity: chronic CAD (coronary artery disease) I25.10 Associated angina: without angina Coronary Disease-Associated Artery/Lesion type: apache artery [place] vs. transplanted heart: apache heart Hypertension I10 Hypertension type: essential hypertension COPD (chronic obstructive pulmonary disease) J44.9 Elevated lactic acid level R79.89 Metabolic acidosis E87.2 Anemia D64.9 Chronic kidney disease, stage 4 (severe) N18.4 Peripheral vascular disease I73.9 DVT prophylaxis Z29.9 (1) Systolic CHF Heart failure chronicity: chronic Qualified Code(s): I50.22 - Chronic systolic (congestive) heart failure (2) CAD (coronary artery disease) Associated angina: without angina Coronary Disease-Associated Artery/Lesion type: [place] artery [place] vs. transplanted heart: apache heart Qualified Code(s): I25.10 - Atherosclerotic heart disease of apache coronary artery without angina pectoris (3) Hypertension Hypertension type: essential hypertension Qualified Code(s): I10 - Essential (primary) hypertension
[2021-01-26] MEDS: UMECLIDINIUM BROMIDE 62.5MCG/BLISTER 7 PUFFS/INHALER INH SCH (12:13)
[2021-01-26] MEDS: ATORVASTATIN 40 MG TAB PO SCH (21:08)
[2021-01-27] MEDS: HEPARIN SOD 5,000 UNIT/0.5 ML VIAL SC SCH ×3 (06:15→20:54)
[2021-01-27] MEDS: carvediloL 6.25 MG TAB PO SCH ×2 (08:37→20:54)
[2021-01-27] MEDS: dexAMETHasone 6 MG in SYRINGE 0 ML IV SCH (08:38)
[2021-01-27] MEDS: ASPIRIN 81 MG ECTAB PO SCH (08:38)
[2021-01-27] MEDS: FERROUS SULFATE 325 MG TAB PO SCH (08:39)
[2021-01-27] MEDS: PANTOprazole 40 MG TAB PO SCH (08:39)
[2021-01-27] MEDS: POLYETHYLENE (MIRALAX) 17 GM PACK PO SCH (08:39)
[2021-01-27] MEDS: CLOPIDOGREL BISULFATE 75 MG TAB PO SCH (08:40)
[2021-01-27] MEDS: CEROVITE ADV FORMULA TAB PO SCH ×2 (08:40→20:54)
[2021-01-27] MEDS: SODIUM CHLORIDE 1 GM TABLET PO SCH ×2 (08:41→20:54)
[2021-01-27] MEDS: SODIUM BICARBONATE 650 MG TAB PO SCH ×3 (08:41→20:54)
[2021-01-27] MEDS: CHOLECALCIFEROL 1,000 UNITS 25 MCG TAB PO SCH (08:41)
[2021-01-27 08:48] LABS: Albumin Level 2.5 gm/dl (3.4-5.0); BUN Creatinine Ratio 31.3 (10-20); Calcium 8.4 mg/dl (8.5-10.1); Creatinine Clr Calc Pharmacy 29.9 ml/min; Est GFR (Non-African American) 26.8; Potassium 4.1 mmol/L (3.5-5.1)
[2021-01-27 08:49] LABS: Phosphorus 1.8 mg/dl (2.5-4.9)
[2021-01-27] MEDS ORDERED: SODIUM PHOSPHATE 3 MMOL/1 ML INFUSION IV STA (09:19)
[2021-01-27] MEDS ORDERED: SODIUM PHOSPHATE 9 MMOL in SODIUM CHLORIDE 0.9% 250 ML IV ONE (10:00)
[2021-01-27] MEDS: ISOSORBIDE MONO EXTENDED REL 30 MG TABCR PO SCH ×2 (10:17→20:54)
[2021-01-27] MEDS: UMECLIDINIUM BROMIDE 62.5MCG/BLISTER 7 PUFFS/INHALER INH SCH (11:37)
[2021-01-27] MEDS: DOCUSATE SODIUM/SENNA 50/8.6MG TAB PO SCH (14:04)
--- NOTE | 2021-01-27 16:42 | Electrocardiogram Report ---
Test Reason : Blood Pressure : / mmHG Vent. Rate : 071 BPM Atrial Rate : 071 BPM P-R Int : 134 ms QRS Dur : 132 ms QT Int : 450 ms P-R-T Axes : 041 -07 217 degrees QTc Int : 489 ms Suspect unspecified pacemaker failure Atrial-sensed ventricular-paced rhythm Abnormal ECG When compared with ECG of 22-JAN-2021 15:33, Vent. rate has decreased BY 32 BPM Confirmed by David Doherty ([id number]) on 01/27/2021 4:41:59 PM Referred By: REFERRED SELF Confirmed By:Ankit Doherty
--- NOTE | 2021-01-27 16:59 | Cardiology Consultation ---
Date of Consultation January 27, 2021 Assessment & Plan (1) NSVT (nonsustained ventricular tachycardia): (2) Metabolic acidosis: (3) Diarrhea: (4) Pneumonia due to 2019 novel coronavirus: (5) COPD with emphysema: (6) LINDSAY (acute kidney injury): (7) CAD (coronary artery disease): (8) Peripheral vascular disease: (9) COPD (chronic obstructive pulmonary disease): (10) Ischemic cardiomyopathy: (11) Chronic kidney disease, stage 4 (severe): (12) Alcohol use disorder: (13) S/P ICD (internal cardiac defibrillator) procedure: (14) Cardiorenal syndrome: Review of telemetry monitoring did demonstrate short salvos of nonsustained ventricular tachycardia with an otherwise underlying ventricularly paced rhythm. I believe this is understandable given his active COVID-19 pneumonia along with his acute on chronic renal failure and severe electrolyte abnormalities. From a cardiac standpoint would recommend continue to treat his electrolytes, acid-base disorder and acute on chronic renal failure as per our nephrology colleagues. He is already on evidence-based beta-feli with carvedilol, should continued runs of occur consideration could be changing to selective beta-feli metoprolol succinate which is also evidence based for his underlying cardiomyopathy. No further cardiac testing or intervention is indicated at this time. History of Present Illness Reason for Consultation: Nonsustained ventricular tachycardia. Requesting Physician: Dr. Villalta Attending Physician: Kathryn Villalta MD History of Present Illness The patient is a 60-year-old male who routinely follows with Irene Busby of our cardiology practice. He presented to [facility] on 01/22/2021 with complaints of increasing fatigue. He was found to have COVID-19 pneumonia as well as acute on chronic renal failure. He was admitted to telemetry and received care per the primary team and nephrology on the evening of 01/26/2021 the patient had several short bursts of nonsustained ventricular tachycardia and cardiology was consulted. In order to reduce staff exposure to COVID-19 cardiac consultation was performed through review of medical records, discussion with primary team, review of telemetry strips and phone discussion with the patient. As per most recent cardiology consultation: Past Medical History: His cardiac history dates back to November 02, 2019 when he presented to [facility] with chest discomfort and oxygen saturations reportedly in the 60s which the patient had initially been placed on BiPAP and ultimately was intubated for airway protection. He was found to have pulmonary edema and a left bundle branch block on EKG of unknown duration. He was transferred to [facility] where he was hospitalized from 11/03/2019 until 11/07/2019 with a diagnosis of flash pulmonary edema in the setting of an acute coronary syndrome, acute myocardial infarction. On 11/06/2019 he underwent coronary intervention including PCI of the proximal LAD with a single drug-eluting stent and PCI of the mid LAD with 2 drug-eluting stents. The second obtuse marginal branch was noted to have a 40% stenosis. The right coronary artery was noted to be chronically occluded. Resting echocardiography performed 11/04/2019 revealed moderate left ventricular systolic dysfunction, ejection fraction 35%. 1.ASCVD, ischemic cardiomyopathy, ejection fraction 35-40% 1.Chronic RCA occlusion 2.Status post PCI to the proximal and mid LAD with 3 drug-eluting stents November 06, 2019. Residual 40% 2nd obtuse marginal stenosis. 3.[place] heart Association Class III dyspnea 4.Left bundle branch block 2.Valvular heart disease, mixed aortic valve disease, mitral regurgitation 3.Chronic hyponatremia 4.Emphysema 5.Chronic nocturnal hypoxemia, treated with supplemental oxygen (initiated January 30, 2020) 6.Peripheral vascular disease with bilateral carotid bruits bilateral SFA occlusions, history of presumed right fem-pop bypass, right 5th toe amputation, aortobifemoral bypass in 2003, prior right iliofemoral bypass. 7.Right renal artery stenosis 8.SMA stenosis 9.Stage 3 to 4 chronic kidney disease 10Anemia 11.Hypertension 12.Dyslipidemia 13.Tobacco abuse 14.Impotence 15.Osteoarthritis Allergies Allergy/AdvReac Type Severity Reaction Status Date / Time No Known Allergies Allergy Unknown Verified 01/22/21 17:46 Home Medications Medication Instructions Recorded Confirmed Type aspirin 81 mg PO QAM 11/03/19 01/22/21 History atorvastatin 80 mg PO HS 11/30/19 01/22/21 History cholecalciferol (vitamin D3) 2,000 unit PO QAM 12/24/19 01/22/21 History ferrous sulfate [iron] 325 mg PO QAM 02/16/20 01/22/21 History Spacer for Inhaler #1 ea 02/21/20 11/25/20 Rx albuterol sulfate 1 puffs INH Q6H PRN #18 gm 02/21/20 01/22/21 Rx isosorbide mononitrate 30 mg PO BID #60 tab 02/21/20 01/22/21 Rx carvedilol 6.25 mg tablet 6.25 mg PO BID 05/10/20 01/22/21 History hydralazine 50 mg tablet 50 mg PO TID 05/10/20 01/22/21 History pantoprazole 40 mg tablet,delayed 40 mg PO QAM 05/10/20 01/22/21 History release PreserVision AREDS-2 1 tab PO BID 07/13/20 01/22/21 History Spiriva with HandiHaler 1 cap INH QDL 07/13/20 01/22/21 History losartan 25 mg PO QAM 07/13/20 01/22/21 History torsemide 20 mg tablet 50 mg PO QAM tab 12/13/20 01/22/21 History acetaminophen [Tylenol] 325 mg PO QID PRN 01/22/21 01/22/21 History clopidogrel [Plavix] 75 mg PO DAILY 01/22/21 01/22/21 History Patient History Medical History AV fistula RIGHT UPPER ARM> NOT WORKING> REASON FOR PROCEDURE CAD (coronary artery disease) Chronic RCA occlusion; s/p three MARY 11/06/19 to LAD; residual 40% OM2 stenosis Chronic congestive heart failure 02/2020 [facility] - SOB and fluid around heart and lungs - had pacer placed. Chronic kidney disease, stage V no diaylsis currently. will see Dr Handy in August 2020. COPD (chronic obstructive pulmonary disease) DOES GET OCCASIONAL D.O.E COPD with emphysema Hx of pulmonary edema "flash" during endo/colon 02/2020 [facility]. Hyperlipidemia Hypertension Hyponatremia CHRONIC Iron deficiency anemia REASON FOR COLONOSCOPY/EGD 02/2020 Ischemic cardiomyopathy EJECTION FRACTION 30-34% Left bundle branch block Lung nodule monitoring Metabolic acidosis Nocturnal hypoxemia due to emphysema placed on CPAP, no home oxygen currently. NSTEMI (non-ST elevated myocardial infarction) 10/2019 Pacemaker placed 02/2020 [facility]. last checked JUL 2020> FOLLOWS IRENE BUSBY Peripheral vascular disease WITH BL CAROTID BRUITS- RIGHT AND LEFT ICA 50-69% PER 08/2020 CAROTID DOPPLER SFA OCCLUSIONS SMA stenosis Surgical History Amputation of fifth toe of right foot 2014 H/O vascular surgery RIGHT FEM-POP BYBASS in 2014, AORTOBIFEMORAL BYPASS IN 2003, PRIOR RIGHT ILIOFEMORAL BYPASS IN 1999 (PATIENT STATE HE HAS HAD 4 VASCULAR SURGERIES) History of angioplasty Right LE approx 2014 History of cardiac cath S/P PCI TO THE PROXIMAL AND MID LAD WITH 3 DRUG-ELUTING STENTS NOVEMBER 06, 2019. RESIDUAL 40% 2ND OBTUSE MARGINAL STENOSIS. History of colonoscopy 02/2020 History of esophagogastroduodenoscopy (EGD) History of heart artery stent x3 Nov [address] [address] Busby. S/P cardiac pacemaker procedure 02/2020 [facility] Family History Other No family history of adverse response to anesthesia Social History Smoking Status: Former smoker packs per day: 2; Years Smoked: 45; Smoking End Date: 02/2020; Second Hand Exposure: No; Hx Alcohol Use: Yes Alcohol type: beer Hx Substance Use: No Preferred Language: Latvian Communication Ability: Effective Washcoat Wiper Required: No Beliefs That Will Affect Care: None marital status: Single Current Living Situation: Alone How many Children do You have: 0 Other Information That Helps Us Care for You: No Feels Safe at Home: Yes Safety Concerns: Feels Safe At This Time Assistive Devices: Glasses Assistive Devices Comment: glasses with patient Results & Data ([facility]) Vital Signs (Past 12 Hours) Vital Signs Temp Pulse Pulse Resp BP Pulse Ox 01/27/21 11:40 36.3 C L 71 18 123/74 97 01/27/21 08:52 36.3 C L 18 01/27/21 08:25 73 20 132/73 91 01/27/21 08:00 71 01/27/21 02:23 36.4 C L 79 18 137/72 93 (1) CAD (coronary artery disease) Coronary Disease-Associated Artery/Lesion type: circle artery [place] vs. transplanted heart: circle heart Associated angina: without angina Qualified Code(s): I25.10 - Atherosclerotic heart disease of circle coronary artery without angina pectoris (2) Cardiorenal syndrome Heart failure presence: with heart failure Hypertensive chronic kidney disease stage: stage 5 chronic kidney disease or end stage renal disease Qualified Code(s): I13.2 - Hypertensive heart and chronic kidney disease with heart failure and with stage 5 chronic kidney disease, or end stage renal disease
[2021-01-27] MEDS: ATORVASTATIN 40 MG TAB PO SCH (20:54)
--- NOTE | 2021-01-27 21:23 | Hospitalist Progress Note ---
Date of Service January 27, 2021 Assessment & Plan (1) LINDSAY (acute kidney injury): Donor Services Specialist 3.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 Handy-appreciated and now signed off, f/u as outpt sodium bicarb added for metabolic acidosis-we will continue this -added NaCl tabs for hyponatremia which is also almost resolved -he has RUE fistula in place if needed for HD -holding home torsemide and losartan (2) Pneumonia due to COVID-19 virus: Also with acute respiratory failure with hypoxia Not candidate for remdesivir due to EGFR less than 30. Was requiring 2L NC and now weaned down to 0.5 LNC, started on dexamethasone 6mg IV on 01/22--> last day of tx will be 01/31 he is breathing comfortably at rest, has a dry cough monitor for any signs of worsening breathing He had small amount of hemoptysis on 2 occasions, very scant, now resolved -ok to continue SQ heparin He will need a two-step walk test prior to discharge (3) NSVT (nonsustained ventricular tachycardia): With a couple of nonsustained runs with the longest being about 16 beats on the night of 01/26 Discussed with cardiology Could consider increasing beta-feli or transitioning to metoprolol if continues to recur Replace electrolytes as needed Follow on telemetry (4) Diarrhea: This appears to be his main symptom of COVID as he has minimal O2 requ irement Now resolved for many days and actually constipated now x5 days-continue Miralax And add senna/docusate (5) Bilateral pleural effusion: Suspect chronic rather than acute CHF No acute issues (6) Elevated procalcitonin: Mildly elevated likely secondary to LINDSAY No need for antibiotics. (7) Elevated d-dimer: Initially concerning for PE in setting of COVID-19 PNA. No CTA could be obtained due to renal failure no chest pain, hemodynamically stable, no tachycardia -initially started on IV heparin drip and was supratherapeutic multiple occasions most likely it is just due to COVID Bilat LE venous dopplers negative--> stopped heparin gtt and converted to hep ai SQ (8) Acute hyponatremia: Suspect due torsemide use and dehydration from diarrhea x 8 days in setting of chronic hyponatremia, LINDSAY also contributing continues to improve to 134 today -Continue NaCl 1 gm bid as per Nephro but may discontinue this prior to discharge-we will discuss with nephrology holding diuretics (9) Ischemic cardiomyopathy: LVEF 30-34% Continue carvedilol but hold losartan due to LINDSAY has ICD in place (10) Systolic CHF: Appears hypovolemic on admission despite BNP and XR findings Hold torsemide drinking better today, no need for IV fluids (11) CAD (coronary artery disease): With a h/o multiple MARY placed -Continue ASA, clopidogrel, carvedilol, atorvastatin, isosorbide (12) Hypertension: Blood pressures now becoming elevated Continue carvedilol Continue ISMN to avoid angina Hold torsemide, hydralazine and losartan to allow improved perfusion, but will restart hydralazine (13) COPD (chronic obstructive pulmonary disease): No current exacerbation. continue LAMA (14) Elevated lactic acid level: Resolved with IV fluids given in ER (15) Metabolic acidosis: HCO3 improved to 23 after starting NaHCO3 tabs -continue such follow BMP in AM (16) Anemia: mild, likely Fe def from previous plus anemia of CKD continue FeSO4 hgb stable now at 11.7 (17) Chronic kidney disease, stage 4 (severe): as above, 2/2 chronic ureteral stricture and hydronephrosis -Avoid nephrotoxins -renally dose meds when appropriate -follow BMP Follow-up with nephrology as an outpatient (18) Peripheral vascular disease: with a h/o multiple surgeries of LEs for PAD, also with SFA and SMA stenosis continue ASA, Plavix, atorvastatin (19) Hypophosphatemia: Replace with IV phosphorus today Follow phosphorus level in the morning (20) DVT prophylaxis: IV heparin drip now dcd and now on SQ heparin Dispo-continued stay on med-tele, but plan on discharge to home tomorrow with home health and 24/7 care as recommended Appreciate PT/OT consultations Will need a 2 step walk test prior to discharge he does live alone but has 6 sisters who help him out Remain on COVID precautions through 01/30 Admission and Anticipated Discharge Date Admission Date: January 22, 2021 Subjective NursePatient reports he still does not feel much better but he is anxious for discharge. Tried to place him on room air but his pulse ox dropped into the mid upper 80s. He remains on 0.5 L with a pulse ox in the low 90s. He denies shortness of breath but is still coughing. No further hemoptysis. No nausea or vomiting, still no bowel movement in 5 days but feels like he is passing more gas. Denies chest pain. On telemetry overnight he had a few runs of nonsustained ventricular tachycardia, the longest being about 16 beats. I discussed his case with sanitation truck cleaner. He continues to make urine and is not having any retention since Ding catheter was removed. Review of Systems Review of Systems: All systems reviewed & are unremarkable except as noted in HPI & below Physical Exam Constitutional: WD/WN, vitals as above Eyes: + anicteric sclerae ENMT: Ears: no hearing impairment and no external ear abnormality Mouth: + gingival abnormality (mild erythema of gums, edentulous on top) Neck: trachea midline, no thyromegaly Respiratory: + cough Auscultation: + crackles (bibasilar); no rhonchi and no wheezes Cardiovascular: RRR, no murmur, no edema Chest (Breasts): Chest: normal inspection of chest Gastrointestinal (Abdomen): normal bowel sounds, soft, nontender, no hepatosplenomegaly Musculoskeletal: Extremities: extremities normal to inspection; no cyanosis and no clubbing Skin: no rashes, warm and dry Neurologic: moves all extremities and awake; no focal motor deficits Psychiatric: A+Ox3, euthymic affect Lymphatic: no lymphedema Results & Data Results & Data ([facility]) Vital Signs (Past 12 Hours) Vital Signs Temp Pulse Pulse Resp BP Pulse Ox Pulse Ox 01/27/21 20:53 86 157/76 H 01/27/21 19:00 36 C L 83 18 147/80 H 93 01/27/21 16:54 97 01/27/21 16:05 36.4 C L 75 20 134/77 94 01/27/21 15:00 69 01/27/21 13:27 94 01/27/21 11:40 36.3 C L 71 18 123/74 97 Pulse Ox Pulse Ox 01/27/21 20:53 01/27/21 19:00 01/27/21 16:54 01/27/21 16:05 01/27/21 15:00 01/27/21 13:27 93 86 L 01/27/21 11:40 Laboratory Results 01/27/21 Range/Units 07:58 Sodium 134 L (136-145) mmol/L Potassium 4.1 (3.5-5.1) mmol/L Chloride 103 (98-107) mmol/L Carbon Dioxide 23 (21-32) mmol/L Anion Gap 8.0 (3-11) BUN 78 H (7-18) mg/dl Creatinine 2.48 H D (0.6-1.4) mg/dl Est Cr Clr Drug Dosing 29.9 ml/min Est GFR ( Amer) 31.0 Est GFR (Non-Af Amer) 26.8 BUN/Creatinine Ratio 31.3 H (10-20) Glucose 112 H (70-99) mg/dl Calcium 8.4 L (8.5-10.1) mg/dl Phosphorus 1.8 L (2.5-4.9) mg/dl Albumin 2.5 L (3.4-5.0) gm/dl PG Care Time/CCT Total # of Minutes Spent Total Time Spent with Patient: Total time spent is greater than 50% in coordination of care (as documented) at patient's floor/unit and/or counseling patient: Coding Level of Care Code 92955 Subseq Hosp Care Lvl 3 Diagnoses LINDSAY (acute kidney injury) N17.9 Pneumonia due to COVID-19 virus U07.1; J12.82 NSVT (nonsustained ventricular tachycardia) I47.2 Diarrhea R19.7 Bilateral pleural effusion J90 Elevated procalcitonin R79.89 Elevated d-dimer R79.89 Acute hyponatremia E87.1 Ischemic cardiomyopathy I25.5 Systolic CHF I50.22 Heart failure chronicity: chronic CAD (coronary artery disease) I25.10 Coronary Disease-Associated Artery/Lesion type: [place] artery [place] vs. transplanted heart: [place] heart Associated angina: without angina Hypertension I10 Hypertension type: essential hypertension COPD (chronic obstructive pulmonary disease) J44.9 Elevated lactic acid level R79.89 Metabolic acidosis E87.2 Anemia D64.9 Chronic kidney disease, stage 4 (severe) N18.4 Peripheral vascular disease I73.9 Hypophosphatemia E83.39 DVT prophylaxis Z29.9 (1) Systolic CHF Heart failure chronicity: chronic Qualified Code(s): I50.22 - Chronic systolic (congestive) heart failure (2) CAD (coronary artery disease) Coronary Disease-Associated Artery/Lesion type: [place] artery [place] vs. transplanted heart: [place] heart Associated angina: without angina Qualified Code(s): I25.10 - Atherosclerotic heart disease of [place] coronary artery without angina pectoris (3) Hypertension Hypertension type: essential hypertension Qualified Code(s): I10 - Essential (primary) hypertension
[2021-01-28] MEDS ORDERED: BENZONATATE 100 MG CAPSULE PO PRN (04:50)
[2021-01-28] MEDS: HEPARIN SOD 5,000 UNIT/0.5 ML VIAL SC SCH ×2 (05:59→14:28)
[2021-01-28 06:40] LABS: Albumin Level 2.6 gm/dl (3.4-5.0); BUN Creatinine Ratio 37.1 (10-20); Creatinine Clr Calc Pharmacy 30.6 ml/min; Est GFR (Non-African American) 27.6; Magnesium 2.7 mg/dl (1.8-2.4); Phosphorus 1.8 mg/dl (2.5-4.9); Potassium 4.2 mmol/L (3.5-5.1)
[2021-01-28] MEDS: dexAMETHasone 6 MG in SYRINGE 0 ML IV SCH (08:31)
[2021-01-28] MEDS: carvediloL 6.25 MG TAB PO SCH (08:32)
[2021-01-28] MEDS: DOCUSATE SODIUM/SENNA 50/8.6MG TAB PO SCH (08:32)
[2021-01-28] MEDS: FERROUS SULFATE 325 MG TAB PO SCH (08:32)
[2021-01-28] MEDS: hydrALAZINE TAB 50 MG TAB PO SCH ×2 (08:32→15:00)
[2021-01-28] MEDS: SODIUM BICARBONATE 650 MG TAB PO SCH ×2 (08:32→15:00)
[2021-01-28] MEDS: PANTOprazole 40 MG TAB PO SCH (08:32)
[2021-01-28] MEDS: CEROVITE ADV FORMULA TAB PO SCH (08:32)
[2021-01-28] MEDS: SODIUM CHLORIDE 1 GM TABLET PO SCH (08:32)
[2021-01-28] MEDS: CHOLECALCIFEROL 1,000 UNITS 25 MCG TAB PO SCH (08:32)
[2021-01-28] MEDS: ASPIRIN 81 MG ECTAB PO SCH (08:32)
[2021-01-28] MEDS: ISOSORBIDE MONO EXTENDED REL 30 MG TABCR PO SCH (08:32)
[2021-01-28] MEDS: POLYETHYLENE (MIRALAX) 17 GM PACK PO SCH (08:33)
[2021-01-28] MEDS: CLOPIDOGREL BISULFATE 75 MG TAB PO SCH (08:33)
[2021-01-28] MEDS ORDERED: SODIUM PHOSPHATE 3 MMOL/1 ML INFUSION IV STA (08:59)
[2021-01-28] MEDS ORDERED: SODIUM PHOSPHATE 12 MMOL in SODIUM CHLORIDE 0.9% 250 ML IV ONE (09:15)
[2021-01-28] MEDS: UMECLIDINIUM BROMIDE 62.5MCG/BLISTER 7 PUFFS/INHALER INH SCH (11:09)
--- NOTE | 2021-01-28 14:27 | Discharge Summary ---
Date of Service January 28, 2021 Admission HPI Per Admitting Provider Keron Fall is a 60-year-old male with congestive heart failure with ischemic cardiomyopathy, CKD stage IV (fistula placed but not on dialysis), PVD and COPD who presents to the ER with increasing fatigue and diarrhea for the last 8 days. He denies any abdominal pain. Diarrhea is loose but not watery. Associated nausea and vomiting. He has continued to take all his routine medications during this illness. He denies any shortness of breath although appears to be using accessory muscles in the room. He does report COVID-19 symptoms of myalgia, sore throat, diarrhea, nausea, vomiting. No cough, loss of taste or smell, nasal congestion, chest or abdominal pain. In the ER chest x-ray was concerning for interval development of pulmonary edema with small bilateral pleural effusions. SARS-CoV-2 PCR positive. And since his chest x-ray appeared to be consistent with COVID-19 pneumonia he was given 1L bolus NSS rather than diuresed despite elevated BNP. Diarrhea and dry mucous membranes would fit with a hypervolemic status. Principal Diagnosis Acute kidney injury, Covid-19 pneumonia, acute respiratory failure with hypoxia, hyponatremia, metabolic acidosis Discharge Exam Constitutional WD/WN, vitals as above Eyes + anicteric sclerae ENMT Ears: no hearing impairment and no external ear abnormality Mouth: + gingival abnormality (mild erythema of gums, edentulous on top) Neck trachea midline, no thyromegaly Respiratory normal respiratory effort, lungs clear to auscultation + cough Auscultation: + crackles (bibasilar); no rhonchi and no wheezes Cardiovascular RRR, no murmur, no edema Chest (Breasts) Chest: normal inspection of chest Gastrointestinal (Abdomen) normal bowel sounds, soft, nontender, no hepatosplenomegaly Musculoskeletal Extremities: extremities normal to inspection; no cyanosis and no clubbing Skin no rashes, warm and dry Neurologic moves all extremities and awake; no focal motor deficits Psychiatric A+Ox3, euthymic affect Lymphatic no lymphedema Discharge Data Allergies Allergy/AdvReac Type Severity Reaction Status Date / Time No Known Allergies Allergy Unknown Verified 01/22/21 17:46 Consultations 01/22/21 21:04 ED Decision to Admit Stat 01/23/21 08:10 Consult Nephrology Routine 01/27/21 07:13 Consult Cardiology Routine Ordered Studies 01/23/21 14:11 US venous doppler LE Urgent Chest x-ray Hospital Course (1) LINDSAY (acute kidney injury): Die Finisher 3.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 Handy-appreciated and now signed off, f/u as outpt sodium bicarb added for metabolic acidosis-we will continue this twice daily on discharge -added NaCl tabs for hyponatremia which is also almost resolved-nephrology recommends continuing this once daily -he has RUE fistula in place if needed for HD -Held home torsemide and losartan, but will restart losartan 25 mg daily on discharge Continue to hold torsemide until seen by nephrology (2) Pneumonia due to COVID-19 virus: Also with acute respiratory failure with hypoxia Not candidate for remdesivir due to EGFR less than 30. Was requiring 2L NC and now weaned down to room air at rest and will need 2 L with exertion upon discharge -started on dexamethasone 6mg IV on 01/22--> last day of tx will be 01/31-we will finish out course with oral dexamethasone on discharge he is breathing comfortably at rest, has a dry cough monitor for any signs of worsening breathing He had small amount of hemoptysis on 2 occasions, very scant, now resolved -Continue albuterol as needed and Spiriva once daily (3) NSVT (nonsustained ventricular tachycardia): With a couple of nonsustained runs with the longest being about 16 beats on the night of 01/26, none further since then Discussed with cardiology No changes needed Replace electrolytes as needed (4) Diarrhea: This appears to be his main symptom of COVID as he has minimal O2 requirement Now resolved for many days and actually constipated now x5 days-continue Miralax daily as needed at home (5) Bilateral pleural effusion: Suspect chronic rather than acute CHF No acute issues (6) Elevated procalcitonin: Mildly elevated likely secondary to LINDSAY No need for antibiotics. (7) Elevated d-dimer: Initially concerning for PE in setting of COVID-19 PNA. No CTA could be obtained due to renal failure no chest pain, hemodynamically stable, no tachycardia -initially started on IV heparin drip and was supratherapeutic multiple occasions most likely it is just due to COVID Bilat LE venous dopplers negative--> stopped heparin gtt and converted to heparin SQ (8) Acute hyponatremia: Suspect due torsemide use and dehydration from diarrhea x 8 days in setting of chronic hyponatremia, LINDSAY also contributing continues to improve to 134 and stable -Continue NaCl 1 gm once daily as per Nephro and follow-up in the office with nephrology in 2 weeks holding diuretics (9) Ischemic cardiomyopathy: LVEF 30-34% Continue carvedilol but hold losartan due to LINDSAY has ICD in place (10) Systolic CHF: Appeared hypovolemic on admission despite BNP and XR findings Held torsemide and will continue to do so after discharge (11) CAD (coronary artery disease): With a h/o multiple MARY placed -Continue ASA, clopidogrel, carvedilol, atorvastatin, isosorbide (12) Hypertension: Blood pressures initially low with hypovolemia and hydralazine, torsemide, losartan were held Continue carvedilol Continue ISMN to avoid angina -Have since restarted hydralazine and will restart losartan on discharge Hold torsemide (13) COPD (chronic obstructive pulmonary disease): No current exacerbation. continue LAMA, albuterol as needed (14) Elevated lactic acid level: Resolved with IV fluids given in ER (15) Metabolic acidosis: HCO3 improved to 24 after starting NaHCO3 tabs -continue such upon discharge follow BMP as an outpatient (16) Anemia: mild, likely Fe def from previous plus anemia of CKD continue FeSO4 hgb stable now at 11.7 (17) Chronic kidney disease, stage 4 (severe): as above, 2/2 chronic ureteral stricture and hydronephrosis -Avoid nephrotoxins -renally dose meds when appropriate -follow BMP as an outpatient Follow-up with nephrology as an outpatient (18) Peripheral vascular disease: with a h/o multiple surgeries of LEs for PAD, also with SFA and SMA stenosis continue ASA, Plavix, atorvastatin (19) Hypophosphatemia: Replaced with IV phosphorus (20) DVT prophylaxis: IV heparin drip initially and then converted to SQ heparin Dispo-stable for discharge to home Appreciate PT/OT consultations Will be discharged home on 2 L nasal cannula of O2 with exertion-this is to be provided by the [facility] he does live alone but has 6 sisters who help him out Remain on COVID precautions through 01/30 Total Time Total Time Spent Total Time Spent (In Minutes): 40 minutes Total Time Includes: Examination of the Patient, Discharge Planning, Medication Reconciliation and Communication With Other Providers (Nephrology) Discharge Plan Discharge Items Patient Disposition: Home - Home Health Services Reason For Visit: COVID-19 PNEUMONIA Discharge Diagnosis: Acute kidney injury, Covid-19 pneumonia, acute respiratory failure with hypoxia Condition on Discharge: Fair Activity: As commented below Lifting: Gradually increase as tolerated Bathing: No limitations Exercise/Sports: Gradually increase as tolerated Non-emergency contact: Primary Care Provider and Wildland Fire Fighter Specialist Call non-emergency contact if: you have any medication questions and your symptoms worsen Follow-up/Referrals: Heide Handy MD [Physician] - (Follow up within 2 weeks) Nixon Pollack MD [Primary Care Provider] - (Please call the [facility] and schedule an appt with your PCP. You will need to be seen within 1-2 weeks, it is important that you tell them that you were COVID positive) Diet: Heart Healthy Addtl Attending Provider Instructions: You were admitted with acute kidney injury secondary to dehydration from diarrhea and Covid-19. You are also found to have pneumonia and are requiring oxygen at 2 L via the nasal cannula with exertion upon discharge. Please finish out 3 more days of the steroid called dexamethasone to help clear up the inflammation in your lungs. You had low sodium levels and low bicarbonate levels and was placed on salt tablets once daily and sodium bicarbonate tablets twice daily for this. Your kidney function improved back to its baseline and you should follow-up with nephrology in 2 weeks. Please continue to hold off on taking your torsemide until nephrology tells you it is okay to restart it. Please continue to take stool softeners and MiraLAX as needed until your bowels are moving again as you have not moved her bowels in 5 days. Please follow-up with your primary care physician within 1 to 2 weeks. Pending Studies at Discharge: No Stand-Alone Forms: My [facility] [employer], Smoking Cessation Medications and DC Order Prescriptions: New polyethylene glycol 3350 [Miralax] 17 gram Powder In Packet 17 g PO DAILY PRN (Reason: constipation) Qty: 30 RF: 0 sodium chloride 1 gram Tablet 1 g PO QAM Qty: 30 RF: 0 sodium bicarbonate 650 mg Tablet 650 mg PO TID Qty: 60 RF: 0 benzonatate [Tessalon Perles] 100 mg Capsule 200 mg PO Q12 PRN (Reason: cough) Qty: 20 RF: 0 dexamethasone 6 mg tablet 6 mg PO DAILY Qty: 3 RF: 0 Continued carvedilol 6.25 mg tablet 6.25 mg PO BID RF: 0 hydralazine 50 mg tablet 50 mg PO TID RF: 0 pantoprazole 40 mg tablet,delayed release (DR/EC) 40 mg PO QAM RF: 0 aspirin 81 mg Tablet,Delayed Release (Dr/Ec) 81 mg PO QAM RF: 0 (DME) Spacer for Inhaler Misc See Rx Instructions .ROUTE .MEDSUPPLY Qty: 1 RF: 0 isosorbide mononitrate 30 mg tablet extended release 24 hr 30 mg PO BID Qty: 60 RF: 0 PreserVision AREDS-2 [id number] [id number]-cuqt-st-mg Capsule 1 tab PO BID RF: 0 losartan 25 mg tablet 25 mg PO QAM RF: 0 Spiriva with HandiHaler 18 mcg capsule, w/inhalation device 1 cap INH QDL RF: 0 atorvastatin 80 mg Tablet 80 mg PO HS RF: 0 cholecalciferol (vitamin D3) 2,000 unit Tablet,Chewable 2,000 unit PO QAM RF: 0 ferrous sulfate [iron] 325 mg (65 mg iron) tablet 325 mg PO QAM RF: 0 acetaminophen [Tylenol] 325 mg Tablet 325 mg PO QID PRN (Reason: Pain) RF: 0 clopidogrel [Plavix] 75 mg Tablet 75 mg PO DAILY RF: 0 Changed albuterol sulfate 90 mcg/actuation HFA aerosol inhaler 2 puffs INH Q6H PRN (Reason: shortness of breath or wheezing) Qty: 18 RF: 0 Discontinued torsemide 20 mg tablet 50 mg PO QAM RF: 0 Discharge Orders: Discharge Order (Routine); Ordered 01/28/21 Ordered By: Kathryn Villalta Admission Data Admit Date/Time: 01/22/21 19:42 Attending Provider: Kathryn Villalta Admit Provider: Zheng Woods Primary Care Provider: Nixon Pollack Other Providers: Zheng Woods ; Heide Handy ; [facility] ; Johnnie Mas Coding Level of Care Code D/C Day Management >30 mins Diagnoses LINDSAY (acute kidney injury) N17.9 Pneumonia due to COVID-19 virus U07.1; J12.82 NSVT (nonsustained ventricular tachycardia) I47.2 Diarrhea R19.7 Bilateral pleural effusion J90 Elevated procalcitonin R79.89 Elevated d-dimer R79.89 Acute hyponatremia E87.1 Ischemic cardiomyopathy I25.5 Systolic CHF I50.22 Heart failure chronicity: chronic CAD (coronary artery disease) I25.10 Coronary Disease-Associated Artery/Lesion type: [place] artery [place] vs. transplanted heart: [place] heart Associated angina: without angina Hypertension I10 Hypertension type: essential hypertension COPD (chronic obstructive pulmonary disease) J44.9 Elevated lactic acid level R79.89 Metabolic acidosis E87.2 Anemia D64.9 Chronic kidney disease, stage 4 (severe) N18.4 Peripheral vascular disease I73.9 Hypophosphatemia E83.39 DVT prophylaxis Z29.9
== END 2021-01-28 17:35 | disposition home or self-care (01) | DRG 177 ==
LOC: ED 14:44 → SUATTDRO 19:42 → 2S 19:42 → 2N 01-23 10:39

== ENCOUNTER 2021-03-14 09:20 | Inpatient (IN) ==
--- NOTE | 2021-03-14 09:42 | Emergency Department Note ---
Impression & Plan CHF (congestive heart failure), COPD (chronic obstructive pulmonary disease), Breath shortness, CKD (chronic kidney disease) ED Provider Note NAME: JULIAN ARGUETA AGE: 61 SEX: M : 1960 ARRIVES VIA: Walk-In INFORMANT: Patient ED PROVIDER(S): Nikhil Del Rio DO CHIEF COMPLAINT: Shortness of breath HPI: Patient is a 61-year-old male with a past medical history of V. tach, ICD in place, aortic regurg, COPD, hypoxic, chronically on 3 L, CKD, ischemic cardi omyopathy that presents to the ER for shortness of breath which has been present and worsening for the past 2 weeks. Seen by [facility] cards and increased his Lasix as he has been having increased swelling in his legs for the past 2 weeks. He admits to intermittent chest pain. No belly pain, nausea, vomiting, or diarrhea. No dysuria, urgency, or frequency. No other exacerbating or remitting factors. ROS: See above HPI for pertinent positives & negatives. A total of 10 systems reviewed and were otherwise negative. PAST MEDICAL HISTORY:See Below PAST SURGICAL HISTORY:See Below FAMILY HISTORY:See Below SOCIAL HISTORY:See Below HOME MEDICATIONS:See Below ALLERGIES:See Below VITALS:See Below PHYSICAL EXAMINATION: GENERAL: Sitting up in bed, alert, disheveled, tachypneic and dyspneic with conversation EYE EXAM: normal conjunctiva. PERRL and EOM's grossly intact. OROPHARYNX: no exudate, no erythema, lips, buccal mucosa, and tongue normal and mucous membranes are moist NECK: supple, no nuchal rigidity, no adenopathy, non-tender LUNGS: Rhonchi bilateral. Normal chest wall mechanics HEART: no murmurs, S1 normal and S2 normal ABDOMEN: abdomen soft, non-tender, normo-active bowel sounds, no masses, no rebound or guarding. UPPER EXTREMITIES: upper extremities are grossly normal. LOWER EXTREMITIES: Pitting edema bilateral lower extremities NEURO EXAM: Normal sensorium, cranial nerves II-XII grossly intact, normal speech, no gross weakness of arms, no gross weakness of legs. MEDICAL DECISION MAKING: Patient is a 61-year-old male with extensive past medical history which includes COPD, CHF, nonsustained VT as well as ischemic cardiomyopathy the presents the ER for shortness of breath. Follow-up with cardiology on Sunday and increase Lasix. He has been still fairly significantly short of breath. With exertion he was significantly dyspneic on exam. IV was established blood work was obtained.Labs showed no significant leukocytosis or anemia. INR was unremarkable. BMP with creatinine at 2.69 up from baseline of 2.4 although this is fairly expected as his Lasix was recently increased. He has been as high as 3.4. LFTs bilirubin were unremarkable. Troponin was negative. Lipase was unremarkable. Covid was negative. Chest x-ray pleural effusions and cephalization consistent with CHF. He was given IV Lasix. Updated bedside. EKG was nondiagnostic. Discussed with hospitalist for further evaluation Triage Nursing notes reviewed. Limited review of prior medical records performed Vital Signs: reviewed and remarkable for no significant abnormalities Differential diagnosis: Differential diagnoses includes but is not limited to acute coronary syndrome, myocardial infarction, pericarditis, pulmonary embolus, aortic dissection, pneumonia, pneumothorax, musculoskeletal, shingles, esophageal. ER treatment provided: See below Diagnostics interpreted by me: ECG: Atrial sensed ventricular paced rate of 101 Left axis Septal Q waves ST depressions in the lateral leads as well as inferior leads with TWI No significant change from previous Cardiac Monitoring: An order was placed for continuous cardiac monitoring. The monitor shows a rate of 98 with sinus rhythm. Laboratory studies: As stated above and show below. Imaging studies: Chest x-ray as discussed above in MDM Consultation(s): Discussed with Dr. Frye for further evaluation Procedures: none Critical Care: None Past Med/Surg History Medical History (Updated 03/14/21 @ 14:34 by Nikhil Del Rio DO) AV fistula RIGHT UPPER ARM> NOT WORKING> REASON FOR PROCEDURE CAD (coronary artery disease) Chronic RCA occlusion; s/p three MARY 11/06/19 to LAD; residual 40% OM2 stenosis Chronic congestive heart failure 02/2020 [facility] - SOB and fluid around heart and lungs - had pacer placed. Chronic kidney disease, stage V no diaylsis currently. will see Dr Handy in August 2020. COPD (chronic obstructive pulmonary disease) DOES GET OCCASIONAL D.O.E COPD with emphysema History of COVID-19 Hx of pulmonary edema "flash" during endo/colon 02/2020 [facility]. Hyperlipidemia Hypertension Hyponatremia CHRONIC Iron deficiency anemia REASON FOR COLONOSCOPY/EGD 02/2020 Ischemic cardiomyopathy EJECTION FRACTION 30-34% Left bundle branch block Lung nodule monitoring Metabolic acidosis Nocturnal hypoxemia due to emphysema placed on CPAP, no home oxygen currently. Pacemaker placed 02/2020 [facility]. last checked JUL 2020> FOLLOWS IRENE BUSBY Peripheral vascular disease WITH BL CAROTID BRUITS- RIGHT AND LEFT ICA 50-69% PER 08/2020 CAROTID DOPPLER SFA OCCLUSIONS SMA stenosis Surgical History Amputation of fifth toe of right foot 2014 H/O vascular surgery RIGHT FEM-POP BYBASS in 2014, AORTOBIFEMORAL BYPASS IN 2003, PRIOR RIGHT ILIOFEMORAL BYPASS IN 1999 (PATIENT STATE HE HAS HAD 4 VASCULAR SURGERIES) History of angioplasty Right LE approx 2014 History of cardiac cath S/P PCI TO THE PROXIMAL AND MID LAD WITH 3 DRUG-ELUTING STENTS NOVEMBER 06, 2019. RESIDUAL 40% 2ND OBTUSE MARGINAL STENOSIS. History of colonoscopy 02/2020 History of esophagogastroduodenoscopy (EGD) History of heart artery stent x3 Nov [address] [facility] [place] uBsby. S/P cardiac pacemaker procedure 02/2020 [facility] Family History Other No family history of adverse response to anesthesia Social History Smoking Status: Former smoker packs per day: 2; Years Smoked: 45; Second Hand Exposure: No; Hx Alcohol Use: Yes Alcohol type: beer Hx Substance Use: No Preferred Language: Tanzanian Communication Ability: Effective Manager Ob Required: No Beliefs That Will Affect Care: None marital status: Single Current Living Situation: Alone How many Children do You have: 0 Feels Safe at Home: Yes Assistive Devices: Oxygen - Continuous Allergies Allergies Allergy/AdvReac Type Severity Reaction Status Date / Time No Known Allergies Allergy Unknown Verified 03/14/21 12:41 Home Meds Home Medications Medication Instructions Recorded Confirmed aspirin 81 mg PO QAM 11/03/19 03/14/21 atorvastatin 80 mg PO HS 11/30/19 03/14/21 cholecalciferol (vitamin D3) 2,000 unit PO QAM 12/24/19 03/14/21 ferrous sulfate [iron] 325 mg PO QAM 02/16/20 03/14/21 carvedilol 6.25 mg tablet 6.25 mg PO BID 05/10/20 03/14/21 hydralazine 50 mg tablet 50 mg PO TID 05/10/20 03/14/21 pantoprazole 40 mg tablet,delayed 40 mg PO QAM 05/10/20 03/14/21 release PreserVision AREDS-2 1 tab PO BID 07/13/20 03/14/21 losartan 25 mg PO QAM 07/13/20 03/14/21 acetaminophen [Tylenol] 325 mg PO QID PRN 01/22/21 03/14/21 clopidogrel [Plavix] 75 mg PO DAILY 01/22/21 03/14/21 torsemide 30 mg PO QAM 03/14/21 03/14/21 Previous Rx's Medication Instructions Recorded Spacer for Inhaler #1 ea 02/21/20 isosorbide mononitrate 30 mg PO BID #60 tab 02/21/20 albuterol sulfate 2 puffs INH Q6H PRN #18 gm 01/28/21 polyethylene glycol 3350 [Miralax] 17 g PO DAILY PRN #30 ea 01/28/21 sodium bicarbonate 650 mg PO TID #60 tab 01/28/21 albuterol sulfate 90 mcg/actuation 1 inh INHALATION QID PRN #18 g 02/22/21 aerosol inhaler tiotropium 2.5 mcg-olodaterol 2.5 2 puff INHALATION DAILY #4 g 02/22/21 mcg/actuation mist for inhalation Results & Data (ED) Vital Signs Vital Signs - 24 hr 03/14/21 09:26 03/14/21 09:35 03/14/21 09:37 Temperature 36.4 C L Temperature Source Temporal Artery Scan Pulse Rate 108 H 99 H Pulse Rate [Apical] 100 H Pulse Rate from SpO2 Sensor 98 H Pulse Rhythm Regular Pulse Rhythm [Apical] Regular Pulse Strength Normal Pulse Strength [Apical] Normal Respiratory Rate 28 H 27 H Respiratory Effort / Characteristics Spontaneous Accessory Muscle Use Labored Short of Breath SOB on Exertion Short of Breath Respiratory Depth Normal Normal Respiratory Pattern Regular Regular Blood Pressure 116/70 123/68 Blood Pressure [Left Arm] 123/68 Blood Pressure Mean 85 86 Blood Pressure Mean [Left Arm] 86 Blood Pressure Position Sitting Blood Pressure Position [Left Arm] Semi-fowlers Pulse Oximetry 100 97 98 Oxygen Delivery Method Nasal Cannula Nasal Cannula Nasal Cannula Oxygen Flow Rate 3 3 3 Sepsis Recent Fever Within 48 Hours No Sepsis New/Unexplained Change in Mental Status No Sepsis Action Taken by Nursing No Action Required 03/14/21 11:00 03/14/21 13:00 Temperature Temperature Source Pulse Rate Pulse Rate [Apical] 84 79 Pulse Rate from SpO2 Sensor Pulse Rhythm Pulse Rhythm [Apical] Regular Regular Pulse Strength Pulse Strength [Apical] Normal Normal Respiratory Rate 20 16 Respiratory Effort / Characteristics Non-Labored Spontaneous Non-Labored Spontaneous Respiratory Depth Normal Normal Respiratory Pattern Blood Pressure Blood Pressure [Left Arm] 128/72 121/62 Blood Pressure Mean Blood Pressure Mean [Left Arm] 90 81 Blood Pressure Position Blood Pressure Position [Left Arm] Pulse Oximetry 100 99 Oxygen Delivery Method Nasal Cannula Nasal Cannula Oxygen Flow Rate 3 3 Sepsis Recent Fever Within 48 Hours Sepsis New/Unexplained Change in Mental Status Sepsis Action Taken by Nursing Laboratory Data Result diagrams: 03/14/21 09:47 03/14/21 09:47 Lab Results 03/14/21 03/14/21 03/14/21 Range/Units 09:47 09:47 09:47 WBC 10.58 (4.8-10.8) K/uL RBC 3.76 L (4.7-6.1) M/uL Hgb 11.9 L (14.0-18.0) g/dL Hct 36.9 L (42-52) % MCV 98.1 (80-100) fL MCH 31.6 (25-34) pg MCHC 32.2 (32-36) g/dL RDW Std Deviation 54.0 H (36.4-46.3) fL RDW Coeff of Monika 14.9 H (11.5-14.5) % Plt Count 300 (130-400) K/uL MPV 9.4 (7.4-10.4) fL Immature Gran % (Auto) 0.4 % Neut % (Auto) 46.1 % Lymph % (Auto) 19.8 % Ware % (Auto) 8.0 % Eos % (Auto) 25.0 % Baso % (Auto) 0.7 % Neut # (Auto) 4.87 (1.4-6.5) K/uL Lymph # (Auto) 2.10 (1.2-3.4) K/uL Ware # (Auto) 0.85 H (0.11-0.59) K/uL Eos # (Auto) 2.65 H (0-0.5) K/uL Baso # (Auto) 0.07 (0-0.2) K/uL Immature Gran # (Auto) 0.04 H (0.00-0.02) K/uL PT 11.4 (9.0-12.0) Seconds INR 1.1 (0.9-1.1) Sodium 135 L (136-145) mmol/L Potassium 3.8 (3.5-5.1) mmol/L Chloride 100 (98-107) mmol/L Carbon Dioxide 27 (21-32) mmol/L Anion Gap 8.0 (3-11) BUN 39 H (7-18) mg/dl Creatinine 2.69 H (0.6-1.4) mg/dl Est Cr Clr Drug Dosing 27.2 ml/min Est GFR ( Amer) 27.9 Est GFR (Non-Af Amer) 24.1 BUN/Creatinine Ratio 14.5 (10-20) Glucose 98 (70-99) mg/dl Calcium 9.4 (8.5-10.1) mg/dl Total Bilirubin 0.7 (0.2-1) mg/dl AST 16 (15-37) U/L ALT 16 (12-78) U/L Alkaline Phosphatase 109 (45-117) U/L Troponin I < 0.015 (0-0.045) ng/ml Total Protein 7.3 (6.4-8.2) gm/dl Albumin 3.2 L (3.4-5.0) gm/dl Globulin 4.1 H (2.5-4.0) gm/dl Albumin/Globulin Ratio 0.8 L (0.9-2) Lipase 261 (73-393) U/L COVID-19 Eval Order SARS-CoV-2 (PCR) (Negative) Influenza Type A (PCR) (Neg) Influenza Type B (PCR) (Neg) RSV (RT-PCR) (Neg) 03/14/21 03/14/21 Range/Units 10:03 10:03 WBC (4.8-10.8) K/uL RBC (4.7-6.1) M/uL Hgb (14.0-18.0) g/dL Hct (42-52) % MCV (80-100) fL MCH (25-34) pg MCHC (32-36) g/dL RDW Std Deviation (36.4-46.3) fL RDW Coeff of Monika (11.5-14.5) % Plt Count (130-400) K/uL MPV (7.4-10.4) fL Immature Gran % (Auto) % Neut % (Auto) % Lymph % (Auto) % Ware % (Auto) % Eos % (Auto) % Baso % (Auto) % Neut # (Auto) (1.4-6.5) K/uL Lymph # (Auto) (1.2-3.4) K/uL Ware # (Auto) (0.11-0.59) K/uL Eos # (Auto) (0-0.5) K/uL Baso # (Auto) (0-0.2) K/uL Immature Gran # (Auto) (0.00-0.02) K/uL PT (9.0-12.0) Seconds INR (0.9-1.1) Sodium (136-145) mmol/L Potassium (3.5-5.1) mmol/L Chloride (98-107) mmol/L Carbon Dioxide (21-32) mmol/L Anion Gap (3-11) BUN (7-18) mg/dl Creatinine (0.6-1.4) mg/dl Est Cr Clr Drug Dosing ml/min Est GFR ( Amer) Est GFR (Non-Af Amer) BUN/Creatinine Ratio (10-20) Glucose (70-99) mg/dl Calcium (8.5-10.1) mg/dl Total Bilirubin (0.2-1) mg/dl AST (15-37) U/L ALT (12-78) U/L Alkaline Phosphatase (45-117) U/L Troponin I (0-0.045) ng/ml Total Protein (6.4-8.2) gm/dl Albumin (3.4-5.0) gm/dl Globulin (2.5-4.0) gm/dl Albumin/Globulin Ratio (0.9-2) Lipase (73-393) U/L COVID-19 Eval Order CovFluRsv at [facility] SARS-CoV-2 (PCR) NEGATIVE (Negative) Influenza Type A (PCR) Negative (Neg) Influenza Type B (PCR) Negative (Neg) RSV (RT-PCR) Negative (Neg) Administered Medications Discontinued Medications Furosemide (Furosemide 40 Mg/4 Ml Vial) 40 mg IV NOW STA Stop: 03/14/21 12:24 Last Admin: 03/14/21 12:30 Dose: 40 mg Documented by: [id number] Imaging Data Radiologist's Impression: Chest X-Ray 03/14/21 09:37 XR chest 1V portable HISTORY: 61 years-old Male Chest Pain acute atypical chest pain COMPARISON: Chest radiograph 01/22/2021 TECHNIQUE: Portable AP view of the chest FINDINGS: Cardiac silhouette is enlarged. Left subclavian pacer/AICD. Pulmonary vascular congestion with interstitial coarsening. No pneumothorax. Left greater than right layering pleural effusions with bibasilar opacities. Degenerative changes of the shoulders and spine. IMPRESSION: 1. Cardiomegaly with pulmonary edema. 2. Layering pleural effusions with bibasilar opacities suggestive of atelectasis. Infectious or inflammatory pneumonitis could appear similarly. ACT 112: Negative or not required by law. The above report was generated using voice recognition software. It may contain grammatical, syntax or spelling errors. Electronically signed by: John Horton M.D. 03/14/2021 9:59 AM Discharge Plan Visit Data Chief Complaint: Shortness of Breath/Dyspnea Stated Complaint: FLUID IN LUNGS ED Provider: Nikhil Del Rio Discharge Problem: CHF (congestive heart failure), COPD (chronic obstructive pulmonary disease), Breath shortness, CKD (chronic kidney disease) Forms Stand Alone Forms: [facility]oopit Prescriptions Prescriptions: No Action Stiolto Respimat 2.5-2.5 mcg/actuation mist 2 puff inhalation DAILY Qty: 4 RF: 2 albuterol sulfate 90 mcg/actuation HFA aerosol inhaler 1 inh inhalation QID PRN (Reason: shortness of breath or wheezing) Qty: 18 RF: 3 carvedilol 6.25 mg tablet 6.25 mg PO BID RF: 0 hydralazine 50 mg tablet 50 mg PO TID RF: 0 pantoprazole 40 mg tablet,delayed release (DR/EC) 40 mg PO QAM RF: 0 aspirin 81 mg Tablet,Delayed Release (Dr/Ec) 81 mg PO QAM RF: 0 (DME) Spacer for Inhaler Misc See Rx Instructions .ROUTE .MEDSUPPLY Qty: 1 RF: 0 isosorbide mononitrate 30 mg tablet extended release 24 hr 30 mg PO BID Qty: 60 RF: 0 PreserVision AREDS-2 [id number] Capsule 1 tab PO BID RF: 0 losartan 25 mg tablet 25 mg PO QAM RF: 0 atorvastatin 80 mg Tablet 80 mg PO HS RF: 0 cholecalciferol (vitamin D3) 2,000 unit Tablet,Chewable 2,000 unit PO QAM RF: 0 ferrous sulfate [iron] 325 mg (65 mg iron) tablet 325 mg PO QAM RF: 0 torsemide 10 mg tablet 30 mg PO QAM RF: 0 acetaminophen [Tylenol] 325 mg Tablet 325 mg PO QID PRN (Reason: Pain) RF: 0 clopidogrel [Plavix] 75 mg Tablet 75 mg PO DAILY RF: 0 polyethylene glycol 3350 [Miralax] 17 gram Powder In Packet 17 g PO DAILY PRN (Reason: constipation) Qty: 30 RF: 0 sodium bicarbonate 650 mg Tablet 650 mg PO TID Qty: 60 RF: 0 albuterol sulfate 90 mcg/actuation HFA aerosol inhaler 2 puffs INH Q6H PRN (Reason: shortness of breath or wheezing) Qty: 18 RF: 0 Discharge Problem: CHF (congestive heart failure) Qualifiers: Heart failure type: unspecified Heart failure chronicity: unspecified Qualified Code(s): I50.9 - Heart failure, unspecified COPD (chronic obstructive pulmonary disease) Qualifiers: COPD type: unspecified COPD Qualified Code(s): J44.9 - Chronic obstructive pu lmonary disease, unspecified CKD (chronic kidney disease) Qualifiers: Chronic kidney disease stage: unspecified stage Qualified Code(s): N18.9 - Chronic kidney disease, unspecified
[2021-03-14 09:58] LABS: Basophils # (auto) 0.07 K/uL (0-0.2); Basophils % (auto) 0.7 %; Eosinophils # (auto) 2.65 K/uL (0-0.5); Hematocrit (blood only) 36.9 % (42-52); Hemoglobin 11.9 g/dL (14.0-18.0); Immature Granulocytes # (auto) 0.04 K/uL (0.00-0.02); Immature Granulocytes % (auto) 0.4 %; Lymphocytes % (auto) 19.8 %; Mean Corpuscular Hemoglobin 31.6 pg (25-34); Mean Corpuscular Hgb Conc 32.2 g/dL (32-36); Mean Corpuscular Volume 98.1 fL (80-100); Mean Platelet Volume 9.4 fL (7.4-10.4); Monocytes # (auto) 0.85 K/uL (0.11-0.59); Neutrophils # (auto) 4.87 K/uL (1.4-6.5); Neutrophils % (auto) 46.1 %; Platelet Count 300 K/uL (130-400); RDW Coefficient of Variation 14.9 % (11.5-14.5); Red Blood Count 3.76 M/uL (4.7-6.1); White Blood Count 10.58 K/uL (4.8-10.8)
--- NOTE | 2021-03-14 10:00 | XRay Report ---
XR chest 1V portable HISTORY: 61 years-old Male Chest Pain acute atypical chest pain COMPARISON: Chest radiograph 01/22/2021 TECHNIQUE: Portable AP view of the chest FINDINGS: Cardiac silhouette is enlarged. Left subclavian pacer/AICD. Pulmonary vascular congestion with inters titial coarsening. No pneumothorax. Left greater than right layering pleural effusions with bibasilar opacities. Degenerative changes of the shoulders and spine. IMPRESSION: 1. Cardiomegaly with pulmonary edema. 2. Layering pleural effusions with bibasilar opacities suggestive of atelectasis. Infectious or infla mmatory pneumonitis could appear similarly. ACT 112: Negative or not required by law. The above report was generated using voice recognition software. It may contain grammatical, syntax o r spelling errors. Electronically signed by: John Horton M.D. 03/14/2021 9:59 AM
[2021-03-14 10:17] LABS: INR 1.1 (0.9-1.1); Prothrombin Time 11.4 Seconds (9.0-12.0)
[2021-03-14 10:19] LABS: Alanine Aminotransferase 16 U/L (12-78); Albumin Level 3.2 gm/dl (3.4-5.0); BUN Creatinine Ratio 14.5 (10-20); Blood Urea Nitrogen 39 mg/dl (7-18); Calcium 9.4 mg/dl (8.5-10.1); Carbon Dioxide 27 mmol/L (21-32); Chloride 100 mmol/L (98-107); Creatinine Clr Calc Pharmacy 27.2 ml/min; Est GFR (African American) 27.9; Est GFR (Non-African American) 24.1; Glucose 98 mg/dl (70-99); Lipase 261 U/L (73-393); Potassium 3.8 mmol/L (3.5-5.1); Sodium 135 mmol/L (136-145)
[2021-03-14 10:23] LABS: Albumin Globulin Ratio 0.8 (0.9-2); Alkaline Phosphatase 109 U/L (45-117); Aspartate Aminotransferase 16 U/L (15-37); Bilirubin,Total 0.7 mg/dl (0.2-1); Globulin 4.1 gm/dl (2.5-4.0); Total Protein 7.3 gm/dl (6.4-8.2); Troponin I < 0.015 ng/ml (0-0.045)
[2021-03-14 11:26] LABS: Influenza A virus by PCR Negative (Neg); Influenza B virus by PCR Negative (Neg); RSV by PCR Negative (Neg); SARS CoV2 RNA(COVID-19) InHosp NEGATIVE (Negative)
[2021-03-14] MEDS ORDERED: FUROSEMIDE 40 MG/4 ML VIAL IV STA (12:23)
--- NOTE | 2021-03-14 14:21 | History & Physical Report ---
Date of Service March 14, 2021 Assessment & Plan (1) CHF (congestive heart failure): Mr. Fall is a 61-year-old male with a history of CAD s/p PCI of Proximal to Mid LAD (3 drug-eluting stents 11/06/19, Chronic RCA Occlusion, 40% OM2 stenosis), Ischemic Cardiomyopathy (LVEF 30% to 34%) s/p [employer] Claria MRI WORM GROWER-D Bi-V AICD, Valvular Heart Disease, Hypertension, Dyslipidemia, PAD, Stage 4 CKD, Anemia, Chronic Intermittent Hyponatremia, BRYAN on CPAP, and Emphysema/COPD who present to the ER today with an acute exacerbation of chronic systolic CHF. Despite receiving IV Lasix last Sunday in his Project Management Advisor's office and increasing his oral Torsemide to 60 mg b.i.d. and losing about 3 p ounds of fluid weight over the weekend -- his SOB, DAVIS, and leg edema persist. CXR consistent with pulmonary edema. ProBNP is > 35,000 pg/ml. Recommend the followin. Admit to Med-Surg with Telemetry. 2. IV Bumex 2 mg b.i.d.. 3. Closely monitor I&O's, body weights, and renal function. 4. Continue Coreg 6.25 mg b.i.d.. 5. Continue Losartan 25 mg daily - could consider switching to Entresto. 6. Continue Imdur ER 30 mg b.i.d.. 7. Continue Hydralazine 50 mg t.i.d.. (2) Ischemic cardiomyopathy: -- LVEF 30% to 34%. -- Followed by [facility]. -- Continue medications as outlined above. -- Medtronic Claria MRI WORM GROWER-D BiV AICD -- last interrogated 02/23/21. (3) CAD (coronary artery disease): -- CAD s/p PCI of Proximal to Mid LAD with 3 drug-eluting stents 11/06/19. -- Chronic RCA Occlusion. -- 40% Residual OM2 stenosis. -- Continue medical management as outlined above. -- Continue Aspirin 81 mg daily. -- Continue Plavix 75 mg daily. (4) Chronic kidney disease, stage V: -- Monitor daily labs. -- Followed by Dr. Handy. -- s/p RUE AV Fistula. (5) S/P ICD (internal cardiac defibrillator) procedure: -- Medtronic Claria MRI WORM GROWER-D BiV AICD -- last interrogated 02/23/21. -- Has RA lead, RV lead, and LBB lead. -- QRS duration on today's EKG is 120 msec. History of Present Illness Chief Complaint: -- Acute on chronic systolic CHF. -- Ischemic Cardiomyopathy, LVEF 30% to 34%. Primary Care Provider: Nixon Pollack MD Mr. Fall is a 61-year-old male with a history of CAD s/p PCI of Proximal to Mid LAD (3 drug-eluting stents 11/06/19, Chronic RCA Occlusion, 40% OM2 stenosis), Ischemic Cardiomyopathy (LVEF 30% to 34%) s/p Medtronic Claria MRI WORM GROWER-D Bi-V AICD, Valvular Heart Disease, Hypertension, Dyslipidemia, PAD, Stage 4 CKD, Anemia, Chronic Intermittent Hyponatremia, BRYAN on CPAP, and Emphysema/COPD who was hospitalized in January 2021 with pneumonia complicated by acute kidney injury, dehydration, hyponatremia, and nonsustained ventricular tachycardia. Because of his renal injury and his metabolic disturbances, he was discharged from the hospital without Torsemide but he was prescribed sodium chloride 1 g a day along with sodium bicarbonate 650 mg t.i.d.. Following that hospitalization, he began to note gradual weight gain, progressive shortness of breath, and lower extremity edema -- so he restarted torsemide on his own. Unfortunately, he did not have the diuretic response that he was hoping for. He continued to feel poorly, short of breath, and he has been sleeping in his recliner for over a month now. He met with Irene Duncan PA-C at [facility] on 03/11/21 and complained of these same symptoms along with t he significant leg edema. Patient received IV Lasix in the office and his Torsemide was increased to 60 mg b.i.d. -- and although his weight came down about 3 lb since then, he has still not reached his baseline dry weight or his baseline breathing status. Patient offers no other complaints. He denies any exertional chest pain or angina pectoris. He denies any exertional neck, jaw, back, or arm pain. He denies any palpitations, syncope, near-syncope, or any discharges from his defibrillator. Allergies Allergy/AdvReac Type Severity Reaction Status Date / Time No Known Allergies Allergy Unknown Verified 03/14/21 12:41 Home Medications Medication Instructions Recorded Confirmed Type aspirin 81 mg PO QAM 11/03/19 03/14/21 History atorvastatin 80 mg PO HS 11/30/19 03/14/21 History cholecalciferol (vitamin D3) 2,000 unit PO QAM 12/24/19 03/14/21 History ferrous sulfate [iron] 325 mg PO QAM 02/16/20 03/14/21 History Spacer for Inhaler #1 ea 02/21/20 03/14/21 Rx isosorbide mononitrate 30 mg PO BID #60 tab 02/21/20 03/14/21 Rx carvedilol 6.25 mg tablet 6.25 mg PO BID 05/10/20 03/14/21 History hydralazine 50 mg tablet 50 mg PO TID 05/10/20 03/14/21 History pantoprazole 40 mg tablet,delayed 40 mg PO QAM 05/10/20 03/14/21 History release PreserVision AREDS-2 1 tab PO BID 07/13/20 03/14/21 History losartan 25 mg PO QAM 07/13/20 03/14/21 History acetaminophen [Tylenol] 325 mg PO QID PRN 01/22/21 03/14/21 History clopidogrel [Plavix] 75 mg PO DAILY 01/22/21 03/14/21 History albuterol sulfate 2 puffs INH Q6H PRN #18 gm 01/28/21 03/14/21 Rx polyethylene glycol 3350 [Miralax] 17 g PO DAILY PRN #30 ea 01/28/21 03/14/21 Rx sodium bicarbonate 650 mg PO TID #60 tab 01/28/21 03/14/21 Rx albuterol sulfate 90 mcg/actuation 1 inh INHALATION QID PRN #18 g 02/22/21 03/14/21 Rx aerosol inhaler tiotropium 2.5 mcg-olodaterol 2.5 2 puff INHALATION DAILY #4 g 02/22/21 03/14/21 Rx mcg/actuation mist for inhalation torsemide 30 mg PO QAM 03/14/21 03/14/21 History Past Med/Surg History Medical History AV fistula RIGHT UPPER ARM> NOT WORKING> REASON FOR PROCEDURE CAD (coronary artery disease) Chronic RCA occlusion; s/p three MARY 11/06/19 to LAD; residual 40% OM2 stenosis Chronic congestive heart failure 02/2020 [facility] - SOB and fluid around heart and lungs - had pacer placed. Chronic kidney disease, stage V no diaylsis currently. will see Dr Handy in August 2020. COPD (chronic obstructive pulmonary disease) DOES GET OCCASIONAL D.O.E COPD with emphysema History of COVID-19 Hx of pulmonary edema "flash" during endo/colon 02/2020 [facility]. Hyperlipidemia Hypertension Hyponatremia CHRONIC Iron deficiency anemia REASON FOR COLONOSCOPY/EGD 02/2020 Ischemic cardiomyopathy EJECTION FRACTION 30-34% Left bundle branch block Lung nodule monitoring Metabolic acidosis Nocturnal hypoxemia due to emphysema placed on CPAP, no home oxygen currently. Pacemaker placed 02/2020 [facility]. last checked JUL 2020> FOLLOWS IRENE DUNCAN Peripheral vascular disease WITH BL CAROTID BRUITS- RIGHT AND LEFT ICA 50-69% PER 08/2020 CAROTID DOPPLER SFA OCCLUSIONS SMA stenosis Surgical History Amputation of fifth toe of right foot 2014 H/O vascular surgery RIGHT FEM-POP BYBASS in 2014, AORTOBIFEMORAL BYPASS IN 2003, PRIOR RIGHT ILIOFEMORAL BYPASS IN 1999 (PATIENT STATE HE HAS HAD 4 VASCULAR SURGERIES) History of angioplasty Right LE approx 2014 History of cardiac cath S/P PCI TO THE PROXIMAL AND MID LAD WITH 3 DRUG-ELUTING STENTS NOVEMBER 06, 2019. RESIDUAL 40% 2ND OBTUSE MARGINAL STENOSIS. History of colonoscopy 02/2020 History of esophagogastroduodenoscopy (EGD) History of heart artery stent x3 Nov [address] [facility] Duncan. S/P cardiac pacemaker procedure 02/2020 [facility] Family History Other No family history of adverse response to anesthesia Social History Smoking Status: Former smoker packs per day: 2; Years Smoked: 45; Second Hand Exposure: No; Do You Dip or Chew Tobacco: No; Tobacco Cessation Education Requested by Patient: No Hx Alcohol Use: Yes Alcohol type: beer Hx Substance Use: No Preferred Language: Danish Communication Ability: Effective Supervisor Shaving And Splitting Required: No Beliefs That Will Affect Care: None marital status: Single Current Living Situation: Alone How many Children do You have: 0 Feels Safe at Home: Yes Safety Concerns: Feels Safe At This Time Assistive Devices: Denture - Upper, Hearing Aid - Bilateral and Oxygen - Continuous Review of Systems Review of Systems: All systems reviewed & are unremarkable except as noted in Subjective Physical Exam Physical Exam: GENERAL: Chronically ill appearing male in no acute distress. HEENT: Head is atraumatic, normocephalic. EOM's intact. Facies symmetric. No perioral cyanosis. NECK: No JVD. JVP is elevated to 1[address] to the angle of the jaw. Carotid upstrokes are + 2 bilaterally with bilateral bruits vs transmitted murmur. CHEST/LUNGS: Diminished breath sounds throughout, absent breath sounds in the extreme bases. Otherwise bibasilar crackles. CVS: S1 and S2 are regular with a grade 2/6 basal systolic murmur heard best over the right 2nd intercostal space. No obvious diastolic murmurs. No gallops or rubs. PMI is nondisplaced. No lifts, heaves, or thrills. No abdominal aortic or renal bruits. Palpable AICD generator in the left subclavian fossa. ABDOMINAL EXAM: Bowel sounds are present. No masses, organomegaly, or tenderness. EXTREMITIES: No clubbing or cyanosis. +2 Pretibial edema bilaterally. Intact radial pulses bilaterally. RUE AV fistula is present. NEUROLOGIC EXAM: Patient is awake, alert, and oriented. Pleasant and cooperative. Answers questions appropriately. Speech is clear. Normal movement in all 4 extremities. Gait pattern was not assessed. EKG 03/14/21: -- Sinus rhythm with sensed atrial beats with biventricular electronic pacing, occasional PVC's. -- Paced QRS complex duration is 126 msec. Results & Data Results & Data ([facility]) Vital Signs (Past 12 Hours) Vital Signs Temp Pulse Pulse Resp BP BP Pulse Ox 03/14/21 13:00 79 16 121/62 99 03/14/21 11:00 84 20 128/72 100 03/14/21 09:37 99 H 100 H 27 H 123/68 123/68 98 03/14/21 09:35 97 03/14/21 09:26 36.4 C L 108 H 28 H 116/70 100 Laboratory Results Laboratory Results - last 24 hr 03/14/21 03/14/21 03/14/21 09:47 09:47 09:47 WBC 10.58 RBC 3.76 L Hgb 11.9 L Hct 36.9 L MCV 98.1 MCH 31.6 MCHC 32.2 RDW Std Deviation 54.0 H RDW Coeff of Monika 14.9 H Plt Count 300 MPV 9.4 Immature Gran % (Auto) 0.4 Neut % (Auto) 46.1 Lymph % (Auto) 19.8 Pepin % (Auto) 8.0 Eos % (Auto) 25.0 Baso % (Auto) 0.7 Neut # (Auto) 4.87 Lymph # (Auto) 2.10 Pepin # (Auto) 0.85 H Eos # (Auto) 2.65 H Baso # (Auto) 0.07 Immature Gran # (Auto) 0.04 H PT 11.4 INR 1.1 Sodium 135 L Potassium 3.8 Chloride 100 Carbon Dioxide 27 Anion Gap 8.0 BUN 39 H Creatinine 2.69 H Est Cr Clr Drug Dosing 27.2 Est GFR ( Amer) 27.9 Est GFR (Non-Af Amer) 24.1 BUN/Creatinine Ratio 14.5 Glucose 98 Calcium 9.4 Total Bilirubin 0.7 AST 16 ALT 16 Alkaline Phosphatase 109 Troponin I < 0.015 Total Protein 7.3 Albumin 3.2 L Globulin 4.1 H Albumin/Globulin Ratio 0.8 L Lipase 261 COVID-19 Eval Order SARS-CoV-2 (PCR) Influenza Type A (PCR) Influenza Type B (PCR) RSV (RT-PCR) 03/14/21 03/14/21 10:03 10:03 WBC RBC Hgb Hct MCV MCH MCHC RDW Std Deviation RDW Coeff of Monika Plt Count MPV Immature Gran % (Auto) Neut % (Auto) Lymph % (Auto) Pepin % (Auto) Eos % (Auto) Baso % (Auto) Neut # (Auto) Lymph # (Auto) Pepin # (Auto) Eos # (Auto) Baso # (Auto) Immature Gran # (Auto) PT INR Sodium Potassium Chloride Carbon Dioxide Anion Gap BUN Creatinine Est Cr Clr Drug Dosing Est GFR ( Amer) Est GFR (Non-Af Amer) BUN/Creatinine Ratio Glucose Calcium Total Bilirubin AST ALT Alkaline Phosphatase Troponin I Total Protein Albumin Globulin Albumin/Globulin Ratio Lipase COVID-19 Eval Order CovFluRsv at [facility] SARS-CoV-2 (PCR) NEGATIVE Influenza Type A (PCR) Negative Influenza Type B (PCR) Negative RSV (RT-PCR) Negative Diagnostic Findings CXR 03/14/21: 1. Cardiomegaly with pulmonary edema. 2. Layering pleural effusions with bibasilar opacities suggestive of atelectasis. Infectious or inflammatory pneumonitis could appear similarly. Medications Administered Medications aspirin 81 mg PO QAM 11/03/19 [History Confirmed 03/14/21] atorvastatin 80 mg PO HS 11/30/19 [History Confirmed 03/14/21] cholecalciferol (vitamin D3) 2,000 unit PO QAM 12/24/19 [History Confirmed 03/14/21] ferrous sulfate [iron] 325 mg PO QAM 02/16/20 [History Confirmed 03/14/21] Spacer for Inhaler #1 ea 02/21/20 [Rx Confirmed 03/14/21] isosorbide mononitrate 30 mg PO BID #60 tab 02/21/20 [Rx Confirmed 03/14/21] carvedilol 6.25 mg tablet 6.25 mg PO BID 05/10/20 [History Confirmed 03/14/21] hydralazine 50 mg tablet 50 mg PO TID 05/10/20 [History Confirmed 03/14/21] pantoprazole 40 mg tablet,delayed release 40 mg PO QAM 05/10/20 [History Confirmed 03/14/21] PreserVision AREDS-2 1 tab PO BID 07/13/20 [History Confirmed 03/14/21] losartan 25 mg PO QAM 07/13/20 [History Confirmed 03/14/21] acetaminophen [Tylenol] 325 mg PO QID PRN 01/22/21 [History Confirmed 03/14/21] clopidogrel [Plavix] 75 mg PO DAILY 01/22/21 [History Confirmed 03/14/21] albuterol sulfate 2 puffs INH Q6H PRN #18 gm 01/28/21 [Rx Confirmed 03/14/21] polyethylene glycol 3350 [Miralax] 17 g PO DAILY PRN #30 ea 01/28/21 [Rx Confirmed 03/14/21] sodium bicarbonate 650 mg PO TID #60 tab 01/28/21 [Rx Confirmed 03/14/21] albuterol sulfate 90 mcg/actuation aerosol inhaler 1 inh INHALATION QID PRN #18 g 02/22/21 [Rx Confirmed 03/14/21] tiotropium 2.5 mcg-olodaterol 2.5 mcg/actuation mist for inhalation 2 puff INHALATION DAILY #4 g 02/22/21 [Rx Confirmed 03/14/21] torsemide 30 mg PO QAM 03/14/21 [History Confirmed 03/14/21] Code Status & VTE Plan Code Status Full Code VTE Prophylaxis Plan VTE Prophylaxis will be ordered: Yes Supervising Physician Co-Signing Physician Notes Case discussed with WADE, agree with his note above. Patient has complicated cardiac history including CAD and ischemic cardiomyopathy with an LVEF of 30- 34%. Patient initially presents with shortness of breath and worsening lower extremity edema. I did try to treat this on his own with torsemide but continue to worsen. Found to be in acute systolic CHF on presentation. Plan to admit to telemetry, is on IV Bumex 2 mg twice daily. Continue other medications including Coreg, losartan, Imdur, and oral hydralazine. Consult cardiology for further management. There is concern regarding renal dysfunction, patient has an AV fistula in place. If renal function continues to deteriorate, may need to consult nephrology for possible initiation hemodialysis. PG Care Time/CCT Total # of Minutes Spent Total Time Spent with Patient: Total time spent is greater than 50% in coordination of care (as documented) at patient's floor/unit and/or counseling patient:40 Coding Level of Care Code 66797 Initial Inpt Care Lvl 3 Diagnoses CHF (congestive heart failure) I50.9 Heart failure chronicity: unspecified Heart failure type: unspecified Ischemic cardiomyopathy I25.5 CAD (coronary artery disease) I25.10 Associated angina: without angina Coronary Disease-Associated Artery/Lesion type: [place] artery [place] vs. transplanted heart: [place] heart Chronic kidney disease, stage V N18.5 S/P ICD (internal cardiac defibrillator) procedure Z95.810 Time Spent (min) 60 (1) CAD (coronary artery disease) Associated angina: without angina Coronary Disease-Associated Artery/Lesion type: [place] artery [place] vs. transplanted heart: [place]q heart Qualified Code(s): I25.10 - Atherosclerotic heart disease of [place] coronary artery without angina pectoris (2) CHF (congestive heart failure) Heart failure chronicity: unspecified Heart failure type: unspecified Qualified Code(s): I50.9 - Heart failure, unspecified
[2021-03-14] MEDS ORDERED: NITROGLYCERIN SL 0.4 MG/TAB TAB SL PRN (16:27)
[2021-03-14] MEDS ORDERED: MAGNESIUM HYDROXIDE SUSP 30 ML UDC PO PRN (16:27)
[2021-03-14] MEDS ORDERED: ALBUTEROL HFA 8 GM INHALER INH PRN (16:27)
[2021-03-14] MEDS ORDERED: [UNRECOGNIZED DRUG - OTHER] SCH (16:27)
[2021-03-14] MEDS ORDERED: ONDANSETRON INJ 2 MG/ML 2 ML VIAL IV PRN (16:27)
[2021-03-14] MEDS ORDERED: ZOLPIDEM TARTRATE 5 MG TAB PO PRN (16:27)
[2021-03-14] MEDS ORDERED: ACETAMINOPHEN 325 MG TAB PO PRN ×2 (16:27)
[2021-03-14] MEDS ORDERED: POLYETHYLENE (MIRALAX) 17 GM PACK PO PRN ×2 (16:27)
[2021-03-14] MEDS ORDERED: ALUMINUM/MAGNESIUM SUSP 30 ML UDC PO PRN (16:27)
[2021-03-14] MEDS ORDERED: PNEUMOCOCCAL ADMINISTRATION CHARGE ONE (16:41)
[2021-03-14] MEDS ORDERED: PNEUMOCOCCAL POLYSACCHARIDES 25 MCG/0.5 ML VIAL/SYR IM ONE (16:41)
[2021-03-14] MEDS: BUMETANIDE 2 MG in SYRINGE 0 ML IV SCH (18:07)
[2021-03-14] MEDS: ATORVASTATIN 40 MG TAB PO SCH (21:13)
[2021-03-14] MEDS: carvediloL 6.25 MG TAB PO SCH (21:15)
[2021-03-14] MEDS: ISOSORBIDE MONO EXTENDED REL 30 MG TABCR PO SCH (21:16)
[2021-03-14] MEDS: hydrALAZINE TAB 50 MG TAB PO SCH (21:16)
[2021-03-14] MEDS: SODIUM BICARBONATE 650 MG TAB PO SCH (21:17)
[2021-03-14] MEDS: HEPARIN SOD 5,000 UNIT/0.5 ML VIAL SQ SCH (21:17)
--- NOTE | 2021-03-15 06:11 | Electrocardiogram Report ---
Test Reason : Blood Pressure : / mmHG Vent. Rate : 101 BPM Atrial Rate : 101 BPM P-R Int : 126 ms QRS Dur : 126 ms QT Int : 366 ms P-R-T Axes : 055 -10 245 degrees QTc Int : 474 ms Atrial-sensed ventricular-paced rhythm Abnormal ECG When compared with ECG of 27-JAN-2021 10:06, Vent. rate has increased BY 30 BPM Confirmed by Jean-Claude Payton ([id number]) on 03/15/2021 6:11:02 AM Referred By: ED Confirmed By:Jean-Claude Payton
[2021-03-15 06:34] LABS: Basophils # (auto) 0.07 K/uL (0-0.2); Basophils % (auto) 0.8 %; Eosinophils # (auto) 2.27 K/uL (0-0.5); Eosinophils % (auto) 27.2 %; Hematocrit (blood only) 33.5 % (42-52); Hemoglobin 10.9 g/dL (14.0-18.0); Immature Granulocytes # (auto) 0.02 K/uL (0.00-0.02); Immature Granulocytes % (auto) 0.2 %; Lymphocytes # (auto) 1.88 K/uL (1.2-3.4); Lymphocytes % (auto) 22.5 %; Mean Corpuscular Hemoglobin 31.8 pg (25-34); Mean Corpuscular Hgb Conc 32.5 g/dL (32-36); Mean Corpuscular Volume 97.7 fL (80-100); Mean Platelet Volume 9.7 fL (7.4-10.4); Monocytes # (auto) 0.76 K/uL (0.11-0.59); Monocytes % (auto) 9.1 %; Neutrophils # (auto) 3.35 K/uL (1.4-6.5); Neutrophils % (auto) 40.2 %; Platelet Count 280 K/uL (130-400); Red Blood Count 3.43 M/uL (4.7-6.1); White Blood Count 8.35 K/uL (4.8-10.8)
[2021-03-15 07:01] LABS: BUN Creatinine Ratio 15.4 (10-20); Calcium 8.6 mg/dl (8.5-10.1); Creatinine Clr Calc Pharmacy 27.3 ml/min; Est GFR (African American) 29.4; Est GFR (Non-African American) 25.4; Magnesium 2.1 mg/dl (1.8-2.4); Potassium 3.6 mmol/L (3.5-5.1)
[2021-03-15] MEDS: ASPIRIN 81 MG ECTAB PO SCH (08:28)
[2021-03-15] MEDS: SODIUM BICARBONATE 650 MG TAB PO SCH ×4 (08:29→20:02)
[2021-03-15] MEDS: ISOSORBIDE MONO EXTENDED REL 30 MG TABCR PO SCH ×2 (08:29→20:01)
[2021-03-15] MEDS: CHOLECALCIFEROL 1,000 UNITS 25 MCG TAB PO SCH (08:29)
[2021-03-15] MEDS: CEROVITE ADV FORMULA TAB PO SCH (08:29)
[2021-03-15] MEDS: BUMETANIDE 2 MG in SYRINGE 0 ML IV SCH ×2 (08:29→16:23)
[2021-03-15] MEDS: PANTOprazole 40 MG TAB PO SCH (08:29)
[2021-03-15] MEDS: carvediloL 6.25 MG TAB PO SCH ×2 (08:29→20:01)
[2021-03-15] MEDS: LOSARTAN POTASSIUM 25 MG TAB PO SCH (08:29)
[2021-03-15] MEDS: hydrALAZINE TAB 50 MG TAB PO SCH ×3 (08:29→20:00)
[2021-03-15] MEDS: CLOPIDOGREL BISULFATE 75 MG TAB PO SCH (08:29)
[2021-03-15] MEDS: FERROUS SULFATE 325 MG TAB PO SCH (08:29)
[2021-03-15] MEDS: HEPARIN SOD 5,000 UNIT/0.5 ML VIAL SQ SCH ×2 (08:38→20:01)
[2021-03-15] MEDS: UMECLIDINIUM/VILANTEROL 62.5/25MCG 7 PUFFS/INHALER INH SCH (10:11)
--- NOTE | 2021-03-15 19:00 | Cardiology Consultation ---
Date of Consultation March 15, 2021 Assessment & Plan (1) Acute on chronic heart failure with reduced ejection fraction and diastolic dysfunction: (2) Ischemic cardiomyopathy: (3) CKD (chronic kidney disease): The patient's respiratory complaints are in some degree multifactorial given history of COPD, and likely ongoing recovery from SARS-CoV-2 pneumonia. I do think volume overload also noted. He discontinued serum bicarbonate supplementation as an outpatient about a week ago. But this is been resumed while hospitalized. Continue IV Bumex for now. Given his degree of renal insufficiency, with eGFR 25 mL/min/m, nephrology see him in consultation with regards to helping dose di uretics and for advice with regards to whether or not the sodium bicarbonate supplementation is still indicated. History of Present Illness Attending Physician: Maik Spencer History of Present Illness Keron Fall is a 61-year-old male seen in cardiology consultation per the request of Dr. Fuentes for treatment of acute on chronic systolic heart failure. In January, the patient was admitted for pneumonia related to SARS-CoV-2 infection. He received IV dexamethasone. Acute kidney injury was noted with creatinine of 3.8 on admission, baseline 2.5-2.6. Metabolic acidosis was noted and therefore he was treated with oral sodium bicarbonate and transiently r eceived sodium chloride. He was discharged on his chronic dose of torsemide 30 mg daily, but he states that since discharge he has had a persistent cough and he has been unable to lie supine to rest. He was admitted for progressive shortness of breath and orthopnea on 03/14/2021 and placed on IV Bumex milligrams IV twice daily. Although his intake and output summary does not suggest significant diuretic effect, the patient states he feels significant improvement and felt that he was able to lie more comfortably last night than what he has been in a month. His weight is down approximately 8 pounds from 67.8 kg to 65.8 kg. He still demonstrates a nonproductive cough, noted during my interview and exam. Past Medical and Surgical History: 1.ASCVD, ischemic cardiomyopathy, ejection fraction 30-34% 1.Chronic RCA occlusion 2.Status post PCI to the proximal and mid LAD with 3 drug-eluting stents November 06, 2019. 3.Residual 40% 2nd obtuse marginal stenosis. 4.[place] [employer] Class III dyspnea 5.Left bundle branch block 6.Status post March 02, 2020 His bundle rate responsive implantable defibrillator 2.Valvular heart disease, mixed aortic valve disease, mitral regurgitation 3.Chronic intermittent hyponatremia 4.Emphysema. Pulmonary nodule, followed by [facility] [place] [facility] 5.BRYAN, CPAP therapy 6.Peripheral vascular disease. Moderate bilateral internal carotid artery stenosis. Bilateral SFA occlusions. Presumed right fem-pop bypass, right 5th toe amputation, aortobifemoral bypass in 2003, prior right iliofemoral bypass. Right renal artery stenosis. SMA stenosis 7.Stage 4 chronic kidney disease felt to be secondary to renovascular disease, malfunctioning right kidney, severe chronic hydronephrosis with ureteral stricture. -Status post right upper extremity cephalic vein antecubital arteriovenous fistula placement by Dr. Zayas Allergies Allergy/AdvReac Type Severity Reaction Status Date / Time No Known Allergies Allergy Unknown Verified 03/14/21 12:41 Home Medications Medication Instructions Recorded Confirmed Type aspirin 81 mg PO QAM 11/03/19 03/14/21 History atorvastatin 80 mg PO HS 11/30/19 03/14/21 History cholecalciferol (vitamin D3) 2,000 unit PO QAM 12/24/19 03/14/21 History ferrous sulfate [iron] 325 mg PO QAM 02/16/20 03/14/21 History Spacer for Inhaler #1 ea 02/21/20 03/14/21 Rx isosorbide mononitrate 30 mg PO BID #60 tab 02/21/20 03/14/21 Rx carvedilol 6.25 mg tablet 6.25 mg PO BID 05/10/20 03/14/21 History hydralazine 50 mg tablet 50 mg PO TID 05/10/20 03/14/21 History pantoprazole 40 mg tablet,delayed 40 mg PO QAM 05/10/20 03/14/21 History release PreserVision AREDS-2 1 tab PO BID 07/13/20 03/14/21 History losartan 25 mg PO QAM 07/13/20 03/14/21 History acetaminophen [Tylenol] 325 mg PO QID PRN 01/22/21 03/14/21 History clopidogrel [Plavix] 75 mg PO DAILY 01/22/21 03/14/21 History albuterol sulfate 2 puffs INH Q6H PRN #18 gm 01/28/21 03/14/21 Rx polyethylene glycol 3350 [Miralax] 17 g PO DAILY PRN #30 ea 01/28/21 03/14/21 Rx sodium bicarbonate 650 mg PO TID #60 tab 01/28/21 03/14/21 Rx albuterol sulfate 90 mcg/actuation 1 inh INHALATION QID PRN #18 g 02/22/21 03/14/21 Rx aerosol inhaler tiotropium 2.5 mcg-olodaterol 2.5 2 puff INHALATION DAILY #4 g 02/22/21 03/14/21 Rx mcg/actuation mist for inhalation torsemide 30 mg PO QAM 03/14/21 03/14/21 History Patient History Medical History AV fistula RIGHT UPPER ARM> NOT WORKING> REASON FOR PROCEDURE CAD (coronary artery disease) Chronic RCA occlusion; s/p three MARY 11/06/19 to LAD; residual 40% OM2 stenosis Chronic congestive heart failure 02/2020 [facility] - SOB and fluid around heart and lungs - had pacer placed. Chronic kidney disease, stage V no diaylsis currently. will see Dr Handy in August 2020. COPD (chronic obstructive pulmonary disease) DOES GET OCCASIONAL D.O.E COPD with emphysema History of COVID-19 Hx of pulmonary edema "flash" during endo/colon 02/2020 [facility]. Hyperlipidemia Hypertension Hyponatremia CHRONIC Iron deficiency anemia REASON FOR COLONOSCOPY/EGD 02/2020 Ischemic cardiomyopathy EJECTION FRACTION 30-34% Left bundle branch block Lung nodule monitoring Metabolic acidosis Nocturnal hypoxemia due to emphysema placed on CPAP, no home oxygen currently. Pacemaker placed 02/2020 [facility]. last checked JUL 2020> FOLLOWS IRENE DUNCAN Peripheral vascular disease WITH BL CAROTID BRUITS- RIGHT AND LEFT ICA 50-69% PER 08/2020 CAROTID DOPPLER SFA OCCLUSIONS SMA stenosis Surgical History Amputation of fifth toe of right foot 2014 H/O vascular surgery RIGHT FEM-POP BYBASS in 2014, AORTOBIFEMORAL BYPASS IN 2004, PRIOR RIGHT ILIOFEMORAL BYPASS IN 1999 (PATIENT STATE HE HAS HAD 4 VASCULAR SURGERIES) History of angioplasty Right LE approx 2014 History of cardiac cath S/P PCI TO THE PROXIMAL AND MID LAD WITH 3 DRUG-ELUTING STENTS NOVEMBER 06, 2019. RESIDUAL 40% 2ND OBTUSE MARGINAL STENOSIS. History of colonoscopy 02/2020 History of esophagogastroduodenoscopy (EGD) History of heart artery stent x3 Nov [address] [facility] Duncan. S/P cardiac pacemaker procedure 02/2020 [facility] Family History Other No family history of adverse response to anesthesia Social History Smoking Status: Former smoker packs per day: 2; Years Smoked: 45; Second Hand Exposure: No; Do You Dip or Chew Tobacco: No; Tobacco Cessation Education Requested by Patient: No Hx Alcohol Use: Yes Alcohol type: beer Hx Substance Use: No Preferred Language: Tajik Communication Ability: Effective Segment Assembler Required: No Beliefs That Will Affect Care: None marital status: Single Current Living Situation: Alone How many Children do You have: 0 Feels Safe at Home: Yes Safety Concerns: Feels Safe At This Time Assistive Devices: Hearing Aid - Bilateral and Oxygen - Continuous Review of Systems Review of Systems: All systems reviewed & are unremarkable except as noted in HPI & below Physical Exam Physical Exam: Temp Pulse Resp BP Pulse Ox 36.7 C 84 18 106/58 L 99 03/15/21 15:32 03/15/21 16:22 03/15/21 15:32 03/15/21 16:22 03/15/21 15:32 Constitutional: WD/WN, vitals as above Respiratory: + cough Auscultation: + rales (Bilateral at the bases and lower lung mccormack) Cardiovascular: Rate/Rhythm: regular rhythm Heart Sounds: + murmur (1/6 systolic murmur) Gastrointestinal (Abdomen): normal bowel sounds, soft, nontender, no hepatosplenomegaly Neurologic: PERRL, EOMI, accommodation nl, no face palsy, no dysarthria Results & Data ([facility]) Vital Signs (Past 12 Hours) Vital Signs Temp Pulse Pulse Resp BP Pulse Ox 03/15/21 16:22 84 106/58 L 03/15/21 15:32 36.7 C 79 18 106/62 99 03/15/21 15:00 81 03/15/21 13:37 79 92/53 L 03/15/21 11:03 36.6 C 76 16 99/59 L 95 03/15/21 08:28 87 105/58 L 03/15/21 07:52 36.6 C 84 17 105/60 95 03/15/21 07:00 77 Laboratory Results CBC 03/15/21 Range/Units 05:39 WBC 8.35 (4.8-10.8) K/uL RBC 3.43 L (4.7-6.1) M/uL Hgb 10.9 L (14.0-18.0) g/dL Hct 33.5 L (42-52) % Plt Count 280 (130-400) K/uL Neut # (Auto) 3.35 (1.4-6.5) K/uL Lymph # (Auto) 1.88 (1.2-3.4) K/uL Mcdowell # (Auto) 0.76 H (0.11-0.59) K/uL Eos # (Auto) 2.27 H (0-0.5) K/uL Baso # (Auto) 0.07 (0-0.2) K/uL Comprehensive Metabolic Panel 03/15/21 Range/Units 05:39 Sodium 140 (136-145) mmol/L Potassium 3.6 (3.5-5.1) mmol/L Chloride 104 (98-107) mmol/L Carbon Dioxide 27 (21-32) mmol/L BUN 40 H (7-18) mg/dl Creatinine 2.58 H (0.6-1.4) mg/dl Glucose 82 (70-99) mg/dl Calcium 8.6 (8.5-10.1) mg/dl Intake and Output 03/15/21 03/15/21 03/15/21 06:59 14:59 22:59 Intake Total 220 / 480 715 / 715 Output Total 250 / 550 325 / 325 Balance -30 / -70 390 / 390 Intake: Oral 220 / 480 515 / 515 Other 200 / 200 Output: Urine 250 / 550 325 / 325 Other: Weight 65.8 kg Weight Measurement Method Standing Scale Diagnostic Findings EKG performed today reveals sinus rhythm with ventricular paced QRS complexes most recent transthoracic echocardiogram performed as an outpatient 12/29/2020: The left ventricular cavity size is mildly enlarged. The wall thickness is normal in segments with normal wall motion. There is diffuse mild hypokinesis to akinesis. There is a small sized basal septal and inferior scar. The qualitative LV ejection fraction is 30-34% (moderately reduced). The aortic valve is mildly calcified. Moderate aortic valve regurgitation is present. Moderate secondary mitral regurgitation is present. The estimated pulmonary artery systolic pressure is 40-45mm Hg. Compared to prior study of August 04, 2020, there is no significant change. (1) CKD (chronic kidney disease) Chronic kidney disease stage: unspecified stage Qualified Code(s): N18.9 - Chronic kidney disease, unspecified
[2021-03-15] MEDS: ATORVASTATIN 40 MG TAB PO SCH (20:02)
--- NOTE | 2021-03-15 22:51 | Hospitalist Progress Note ---
Date of Service March 15, 2021 Assessment & Plan (1) CHF (congestive heart failure): Mr. Fall is a 61-year-old male with a history of CAD s/p PCI of Proximal to Mid LAD (3 drug-eluting stents 11/06/19, Chronic RCA Occlusion, 40% OM2 stenosis), Ischemic Cardiomyopathy (LVEF 30% to 34%) s/p Med[employer]onic Claria MRI WEDGER MACHINE-D Bi-V AICD, Valvular Heart Disease, Hypertension, Dyslipidemia, PAD, Stage 4 CKD, Anemia, Chronic Intermittent Hyponatremia, BRYAN on CPAP, and Emphysema/COPD who present to the ER today with an acute exacerbation of chronic systolic CHF. 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 and losing about 3 p ounds of fluid weight over the weekend -- his SOB, DAVIS, and leg edema persist. CXR consistent with pulmonary edema. ProBNP is > 35,000 pg/ml. Patient is improving. Will consult Nephro and cardio as patient has remained positive fluid output. Likely attributed to his CKD and CHF. Patient reports he would be against HD unless no other alternative. Will continue IV Bumex 2 mg b.i.d.. Closely monitor I&O's, body weights, and renal function. Continue Coreg 6.25 mg b.i.d.. Continue Losartan 25 mg daily - could consider switching to Entresto. Continue Imdur ER 30 mg b.i.d.. Continue Hydralazine 50 mg t.i.d.. (2) Ischemic cardiomyopathy: -- LVEF 30% to 34%. -- [facility]. -- Continue medications as outlined above. -- Medtronic Claria MRI WEDGER MACHINE-D BiV AICD -- last interrogated 02/23/21. (3) CAD (coronary artery disease): -- CAD s/p PCI of Proximal to Mid LAD with 3 drug-eluting stents 11/06/19. -- Chronic RCA Occlusion. -- 40% Residual OM2 stenosis. -- Continue medical management as outlined above. -- Continue Aspirin 81 mg daily. -- Continue Plavix 75 mg daily. (4) Chronic kidney disease, stage V: -- Monitor daily labs. -- Followed by Dr. Handy. -- s/p RUE AV Fistula. (5) S/P ICD (internal cardiac defibrillator) procedure: -- Medtronic Claria MRI WEDGER MACHINE-D BiV AICD -- last interrogated 02/23/21. -- Has RA lead, RV lead, and LBB lead. -- QRS duration on today's EKG is 120 msec. Admission and Anticipated Discharge Date Admission Date: March 15, 2021 Subjective Patient reports breathing better, but continues to have a dry cough which occurs intermittently. He feels it occurs mainly when he has a deep breath Review of Systems Review of Systems: All systems reviewed & are unremarkable except as noted in HPI & below Physical Exam Physical Exam: GENERAL: Chronically ill appearing male in no acute distress. HEENT: Head is atraumatic, normocephalic. EOM's intact. Facies symmetric. No perioral cyanosis. NECK: No JVD. JVP is elevated to 1[address] to the angle of the jaw. Carotid upstrokes are + 2 bilaterally with bilateral bruits vs transmitted murmur. CHEST/LUNGS: Diminished breath sounds throughout, absent breath sounds in the extreme bases. Otherwise bibasilar crackles. CVS: S1 and S2 are regular with a grade 2/6 basal systolic murmur heard best over the right 2nd intercostal space. No obvious diastolic murmurs. No gallops or rubs. PMI is nondisplaced. No lifts, heaves, or thrills. No abdominal aortic or renal bruits. Palpable AICD generator in the left subclavian fossa. ABDOMINAL EXAM: Bowel sounds are present. No masses, organomegaly, or tenderness. EXTREMITIES: No clubbing or cyanosis. +2 Pretibial edema bilaterally. Intact radial pulses bilaterally. RUE AV fistula is present. NEUROLOGIC EXAM: Patient is awake, alert, and oriented. Pleasant and cooperative. Answers questions appropriately. Speech is clear. Normal movement in all 4 extremities. Gait pattern was not assessed. Results & Data Results & Data ([facility]) Vital Signs (Past 12 Hours) Vital Signs Temp Pulse Pulse Resp BP Pulse Ox 03/15/21 19:00 36.5 C 85 18 119/73 97 03/15/21 16:22 84 106/58 L 03/15/21 15:32 36.7 C 79 18 106/62 99 03/15/21 15:00 81 03/15/21 13:37 79 92/53 L 03/15/21 11:03 36.6 C 76 16 99/59 L 95 PG Care Time/CCT Total # of Minutes Spent Total Time Spent with Patient: Total time spent is greater than 50% in coordination of care (as documented) at patient's floor/unit and/or counseling patient: Coding Level of Care Code 48622 Subseq Hosp Care Lvl 3 Diagnoses CHF (congestive heart failure) I50.9 Heart failure chronicity: unspecified Heart failure type: unspecified Ischemic cardiomyopathy I25.5 CAD (coronary artery disease) I25.10 Associated angina: without angina Coronary Disease-Associated Artery/Lesion type: [place] artery [place] vs. transplanted heart: [place] heart Chronic kidney disease, stage V N18.5 S/P ICD (internal cardiac defibrillator) procedure Z95.810 Time Spent (min) 35 (1) CAD (coronary artery disease) Associated angina: without angina Coronary Disease-Associated Artery/Lesion type: [place] artery [place] vs. transplanted heart: [place] heart Qualified Code(s): I25.10 - Atherosclerotic heart disease of [place] coronary artery without angina pectoris (2) CHF (congestive heart failure) Heart failure chronicity: unspecified Heart failure type: unspecified Qualified Code(s): I50.9 - Heart failure, unspecified
[2021-03-16 06:18] LABS: Basophils # (auto) 0.04 K/uL (0-0.2); Basophils % (auto) 0.4 %; Eosinophils # (auto) 1.53 K/uL (0-0.5); Eosinophils % (auto) 15.9 %; Hematocrit (blood only) 32.1 % (42-52); Hemoglobin 10.8 g/dL (14.0-18.0); Immature Granulocytes # (auto) 0.03 K/uL (0.00-0.02); Immature Granulocytes % (auto) 0.3 %; Lymphocytes # (auto) 1.57 K/uL (1.2-3.4); Lymphocytes % (auto) 16.3 %; Mean Corpuscular Hemoglobin 32.1 pg (25-34); Mean Corpuscular Hgb Conc 33.6 g/dL (32-36); Mean Corpuscular Volume 95.5 fL (80-100); Mean Platelet Volume 9.5 fL (7.4-10.4); Monocytes # (auto) 0.94 K/uL (0.11-0.59); Monocytes % (auto) 9.8 %; Neutrophils % (auto) 57.3 %; Platelet Count 253 K/uL (130-400); RDW Standard Deviation 52.8 fL (36.4-46.3); Red Blood Count 3.36 M/uL (4.7-6.1); White Blood Count 9.61 K/uL (4.8-10.8)
--- NOTE | 2021-03-16 06:28 | Electrocardiogram Report ---
Test Reason : Blood Pressure : / mmHG Vent. Rate : 084 BPM Atrial Rate : 084 BPM P-R Int : 122 ms QRS Dur : 164 ms QT Int : 442 ms P-R-T Axes : 031 -37 096 degrees QTc Int : 522 ms Atrial-sensed ventricular-paced rhythm Abnormal ECG When compared with ECG of 14-MAR-2021 09:36, Vent. rate has decreased BY 17 BPM Reconfirmed by Jean-Claude Payton ([id number]) on 03/17/2021 5:56:02 AM Referred By: Erlin Duncan Confirmed By:Jean-Claude Payton
[2021-03-16 06:40] LABS: BUN Creatinine Ratio 16.2 (10-20); Calcium 8.4 mg/dl (8.5-10.1); Creatinine Clr Calc Pharmacy 26.9 ml/min; Est GFR (African American) 28.8; Est GFR (Non-African American) 24.9; Magnesium 2.2 mg/dl (1.8-2.4); Potassium 3.6 mmol/L (3.5-5.1)
[2021-03-16] MEDS: SODIUM BICARBONATE 650 MG TAB PO SCH ×3 (08:56→20:13)
[2021-03-16] MEDS: ASPIRIN 81 MG ECTAB PO SCH (08:56)
[2021-03-16] MEDS: CHOLECALCIFEROL 1,000 UNITS 25 MCG TAB PO SCH (08:57)
[2021-03-16] MEDS: PANTOprazole 40 MG TAB PO SCH (08:57)
[2021-03-16] MEDS: CLOPIDOGREL BISULFATE 75 MG TAB PO SCH (08:57)
[2021-03-16] MEDS: LOSARTAN POTASSIUM 25 MG TAB PO SCH (08:57)
[2021-03-16] MEDS: CEROVITE ADV FORMULA TAB PO SCH (08:58)
[2021-03-16] MEDS: ISOSORBIDE MONO EXTENDED REL 30 MG TABCR PO SCH ×2 (08:58→20:13)
[2021-03-16] MEDS: carvediloL 6.25 MG TAB PO SCH ×2 (08:58→20:12)
[2021-03-16] MEDS: FERROUS SULFATE 325 MG TAB PO SCH (08:58)
[2021-03-16] MEDS: UMECLIDINIUM/VILANTEROL 62.5/25MCG 7 PUFFS/INHALER INH SCH (08:59)
[2021-03-16] MEDS: HEPARIN SOD 5,000 UNIT/0.5 ML VIAL SQ SCH ×2 (08:59→20:17)
[2021-03-16] MEDS: BUMETANIDE 2 MG in SYRINGE 0 ML IV SCH ×2 (08:59→16:02)
[2021-03-16] MEDS: hydrALAZINE TAB 50 MG TAB PO SCH ×3 (08:59→20:13)
--- NOTE | 2021-03-16 14:02 | Nephrology Consultation ---
Date of Consultation March 16, 2021 Assessment & Plan (1) Acute on chronic heart failure with reduced ejection fraction and diastolic dysfunction: Net negative 900 ml today following IV Bumex. I would provide an additional dose of the diuretic this afternoon. Goal is to encourage a negative fluid balance of >1.5 L/d. Cardiology following. Document I/O's and daily weight. (2) CKD (chronic kidney disease): Kidney function stable. Non-oliguric. Electrolytes acceptable. Volume status improving. No emergent indication for dialysis at this time. Will continue to monitor. Potential indications for dialysis reviewed today. Medications appropriately dosed for kidney dysfunction. (3) Metabolic acidosis: Oral NaHCO3 650 mg decreased to twice daily. Repeat metabolic profile tomorrow AM. (4) Iron deficiency anemia: Chronic, stable. YONNY therapy deferred for now. Iron profile wtih AM labs. History of Present Illness Reason for Consultation: CKD Requesting Physician: Kathryn Villalta MD Attending Physician: Kathryn Villalta MD History of Present Illness Mr. Keron Fall is a 60 year-old male with advanced chronic kidney disease. He follows in the nephrology clinic with Dr. Handy. Keron was admitted to [facility] in January with COVID pneumonia. He has been recovering. Activity tolerance and dyspnea improving. Unfortunately, dyspnea recently worsening. He was admitted to [facility] with fluid retention associated with acute on chronic congestive heart failure. CXR demonstrating notable pulmonary vascular congestion and interstitial edema. Medical history is notable for COPD, ischemic cardiomyopathy (EF 20-25%), HTN, and PAD. Long smoking history. 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 Keron has CKD IV. Baseline creatinine 2.5 mg/dL. He has a chronically obstructed right kidney with moderate to severe hydronephrosis and noted ureteral stricture. This has been stented in the past without noted improvement. Nuclear renal scan in October 2019 showed right kidney to be minimally functional with less than 19% function. Split kidney function with >81% on the left. Right brachiocephalic AV fistula was placed on 07/20/[address] Zayas. Unfortunately there was primary failure resulting AV graft placement in September 2020. He is planning to do hemodialysis when needed. Volume status controlled at home with PO torsemide. Keron remains non-oliguric. IV Bumex provided during the hospitalization. Symptoms improving. Allergies Allergy/AdvReac Type Severity Reaction Status Date / Time No Known Allergies Allergy Unknown Verified 03/14/21 12:41 Home Medications Medication Instructions Recorded Confirmed Type aspirin 81 mg PO QAM 11/03/19 03/14/21 History atorvastatin 80 mg PO HS 11/30/19 03/14/21 History cholecalciferol (vitamin D3) 2,000 unit PO QAM 12/24/19 03/14/21 History ferrous sulfate [iron] 325 mg PO QAM 02/16/20 03/14/21 History Spacer for Inhaler #1 ea 02/21/20 03/14/21 Rx isosorbide mononitrate 30 mg PO BID #60 tab 02/21/20 03/14/21 Rx carvedilol 6.25 mg tablet 6.25 mg PO BID 05/10/20 03/14/21 History hydralazine 50 mg tablet 50 mg PO TID 05/10/20 03/14/21 History pantoprazole 40 mg tablet,delayed 40 mg PO QAM 05/10/20 03/14/21 History release PreserVision AREDS-2 1 tab PO BID 07/13/20 03/14/21 History losartan 25 mg PO QAM 07/13/20 03/14/21 History acetaminophen [Tylenol] 325 mg PO QID PRN 01/22/21 03/14/21 History clopidogrel [Plavix] 75 mg PO DAILY 01/22/21 03/14/21 History albuterol sulfate 2 puffs INH Q6H PRN #18 gm 01/28/21 03/14/21 Rx polyethylene glycol 3350 [Miralax] 17 g PO DAILY PRN #30 ea 01/28/21 03/14/21 Rx sodium bicarbonate 650 mg PO TID #60 tab 01/28/21 03/14/21 Rx albuterol sulfate 90 mcg/actuation 1 inh INHALATION QID PRN #18 g 02/22/21 03/14/21 Rx aerosol inhaler tiotropium 2.5 mcg-olodaterol 2.5 2 puff INHALATION DAILY #4 g 02/22/21 03/14/21 Rx mcg/actuation mist for inhalation torsemide 30 mg PO QAM 03/14/21 03/14/21 History Patient History Medical History AV fistula RIGHT UPPER ARM> NOT WORKING> REASON FOR PROCEDURE CAD (coronary artery disease) Chronic RCA occlusion; s/p three MARY 11/06/19 to LAD; residual 40% OM2 stenosis Chronic congestive heart failure 02/2020 [facility] - SOB and fluid around heart and lungs - had pacer placed. Chronic kidney disease, stage V no diaylsis currently. will see Dr Handy in August 2020. COPD (chronic obstructive pulmonary disease) DOES GET OCCASIONAL D.O.E COPD with emphysema History of COVID-19 Hx of pulmonary edema "flash" during endo/colon 02/2020 [facility]. Hyperlipidemia Hypertension Hyponatremia CHRONIC Iron deficiency anemia REASON FOR COLONOSCOPY/EGD 02/2020 Ischemic cardiomyopathy EJECTION FRACTION 30-34% Left bundle branch block Lung nodule monitoring Metabolic acidosis Nocturnal hypoxemia due to emphysema placed on CPAP, no home oxygen currently. Pacemaker placed 02/2020 [facility]. last checked JUL 2020> FOLLOWS IRENE DUNCAN Peripheral vascular disease WITH BL CAROTID BRUITS- RIGHT AND LEFT ICA 50-69% PER 08/2020 CAROTID DOPPLER SFA OCCLUSIONS SMA stenosis Surgical History Amputation of fifth toe of right foot 2014 H/O vascular surgery RIGHT FEM-POP BYBASS in 2014, AORTOBIFEMORAL BYPASS IN 2003, PRIOR RIGHT ILIOFEMORAL BYPASS IN 1999 (PATIENT STATE HE HAS HAD 4 VASCULAR SURGERIES) History of angioplasty Right LE approx 2014 History of cardiac cath S/P PCI TO THE PROXIMAL AND MID LAD WITH 3 DRUG-ELUTING STENTS NOVEMBER 06, 2019. RESIDUAL 40% 2ND OBTUSE MARGINAL STENOSIS. History of colonoscopy 02/2020 History of esophagogastroduodenoscopy (EGD) History of heart artery stent x3 Nov 2019 [facility] [place]. Follows Dr Duncan. S/P cardiac pacemaker procedure 02/2020 [facility] Family History Other No family history of adverse response to anesthesia Social History Smoking Status: Former smoker packs per day: 2; Years Smoked: 45; Second Hand Exposure: No; Do You Dip or Chew Tobacco: No; Tobacco Cessation Education Requested by Patient: No Hx Alcohol Use: Yes Alcohol type: beer Hx Substance Use: No Preferred Language: [place] Communication Ability: Effective Breast Splitter Required: No Beliefs That Will Affect Care: None marital status: Single Current Living Situation: Alone How many Children do You have: 0 Feels Safe at Home: Yes Safety Concerns: Feels Safe At This Time Assistive Devices: Oxygen - Continuous Review of Systems Review of Systems: All systems reviewed & are unremarkable except as noted in HPI & below Physical Exam Constitutional: well developed; no acute distress Eyes: no scleral abnormality and no corneal abnormality ENMT: Mouth: no oral mucosal abnormality and oral mucous membranes not dry Neck: normal visual inspection and trachea midline Respiratory: normal respiratory effort Auscultation: + rales Cardiovascular: Rate/Rhythm: regular rate Heart Sounds: normal S1 and normal S2 Vessels: + JVD Extremities: + AV fistula; no edema Musculoskeletal: Extremities: no cyanosis and no clubbing Skin: normal turgor; no lesions Neurologic: Motor/Sensory: no tremor and no asterixis Psychiatric: Orientation: alert and oriented x 3 Results & Data ([facility]) Vital Signs (Past 12 Hours) Vital Signs Temp Pulse Pulse Resp BP Pulse Ox 03/16/21 11:05 36.5 C 87 16 109/61 95 03/16/21 07:30 82 03/16/21 07:16 36.5 C 83 16 123/70 96 03/16/21 04:00 36.6 C 83 18 111/61 93 Laboratory Results Laboratory Results - last 24 hr 03/16/21 03/16/21 06:01 06:01 WBC 9.61 RBC 3.36 L Hgb 10.8 L Hct 32.1 L MCV 95.5 MCH 32.1 MCHC 33.6 RDW Std Deviation 52.8 H RDW Coeff of Monika 15.0 H Plt Count 253 MPV 9.5 Immature Gran % (Auto) 0.3 Neut % (Auto) 57.3 Lymph % (Auto) 16.3 [place] % (Auto) 9.8 Eos % (Auto) 15.9 Baso % (Auto) 0.4 Neut # (Auto) 5.50 Lymph # (Auto) 1.57 [place] # (Auto) 0.94 H Eos # (Auto) 1.53 H Baso # (Auto) 0.04 Immature Gran # (Auto) 0.03 H Sodium 138 Potassium 3.6 Chloride 103 Carbon Dioxide 30 Anion Gap 5.0 BUN 42 H Creatinine 2.62 H Est Cr Clr Drug Dosing 26.9 Est GFR ( Amer) 28.8 Est GFR (Non-Af Amer) 24.9 BUN/Creatinine Ratio 16.2 Glucose 98 Calcium 8.4 L Magnesium 2.2 PG Care Time/CCT Total # of Minutes Spent Total Time Spent with Patient: Total time spent is greater than 50% in coordination of care (as documented) at patient's floor/unit and/or counseling patient: Coding Level of Care Code 82719 Inpt Consult Level 4 Diagnoses Acute on chronic heart failure with reduced ejection fraction and diastolic dysfunction I50.43 CKD (chronic kidney disease) N18.9 Chronic kidney disease stage: unspecified stage Metabolic acidosis E87.2 Iron deficiency anemia D50.9 Iron deficiency anemia type: unspecified iron deficiency (1) CKD (chronic kidney disease) Chronic kidney disease stage: unspecified stage Qualified Code(s): N18.9 - Chronic kidney disease, unspecified (2) Iron deficiency anemia Iron deficiency anemia type: unspecified iron deficiency Qualified Code(s): D50.9 - Iron deficiency anemia, unspecified
--- NOTE | 2021-03-16 16:32 | Cardiology Progress Note ---
Date of Service March 16, 2021 Assessment & Plan (1) Acute on chronic heart failure with reduced ejection fraction and diastolic dysfunction: (2) CKD (chronic kidney disease): Nephrology input noted and appreciated. Goal urine output, greater than 1.5 L / 24 hours In addition to Bumex 2 mg IV twice a day, will give an additional dose now. Sodium bicarbonate tablet dosing reduced to twice daily. Repeat chemistry panel tomorrow. Continue subcu heparin for DVT prophylaxis. Admission and Anticipated Discharge Date Admission Date: March 15, 2021 Subjective Patient seen in cardiology follow-up of chief complaint of cough, shortness of breath. Urine output was a bit more vigorous last evening. He remains orthopneic, and describes ongoing cough, which he demonstrated on deep inspiration again today on exam. Telemetry reveals sinus rhythm with ventricular paced QRS complexes in the range of 80 to 90 bpm. Review of Systems Review of Systems: All systems reviewed & are unremarkable except as noted in HPI & below Physical Exam Physical Exam: Temp Pulse Resp BP Pulse Ox 36.8 C 84 16 109/67 92 03/16/21 15:17 03/16/21 15:17 03/16/21 15:17 03/16/21 15:17 03/16/21 15:17 Constitutional: WD/WN, vitals as above Respiratory: + cough Auscultation: + rales (Mild rales bilaterally at the bases); no wheezes Cardiovascular: Rate/Rhythm: regular rhythm Heart Sounds: + murmur (1/6 systolic murmur) Vessels: + JVD Extremities: no edema Gastrointestinal (Abdomen): normal bowel sounds, soft, nontender, no hepatosplenomegaly Neurologic: PERRL, EOMI, accommodation nl, no face palsy, no dysarthria Results & Data ([facility]) Vital Signs (Past 12 Hours) Vital Signs Temp Pulse Pulse Resp BP Pulse Ox 03/16/21 15:17 36.8 C 84 16 109/67 92 03/16/21 15:00 83 03/16/21 11:05 36.5 C 87 16 109/61 95 03/16/21 07:30 82 03/16/21 07:16 36.5 C 83 16 123/70 96 Laboratory Results CBC 03/16/21 Range/Units 06:01 WBC 9.61 (4.8-10.8) K/uL RBC 3.36 L (4.7-6.1) M/uL Hgb 10.8 L (14.0-18.0) g/dL Hct 32.1 L (42-52) % Plt Count 253 (130-400) K/uL Neut # (Auto) 5.50 (1.4-6.5) K/uL Lymph # (Auto) 1.57 (1.2-3.4) K/uL [place] # (Auto) 0.94 H (0.11-0.59) K/uL Eos # (Auto) 1.53 H (0-0.5) K/uL Baso # (Auto) 0.04 (0-0.2) K/uL Comprehensive Metabolic Panel 03/16/21 Range/Units 06:01 Sodium 138 (136-145) mmol/L Potassium 3.6 (3.5-5.1) mmol/L Chloride 103 (98-107) mmol/L Carbon Dioxide 30 (21-32) mmol/L BUN 42 H (7-18) mg/dl Creatinine 2.62 H (0.6-1.4) mg/dl Glucose 98 (70-99) mg/dl Calcium 8.4 L (8.5-10.1) mg/dl Intake and Output 03/16/21 03/16/21 03/16/21 06:59 14:59 22:59 Intake Total 120 / 1075 275 / 275 Output Total 575 / 1450 625 / 625 Balance -455 / -375 -350 / -350 Intake: Oral 120 / 875 275 / 275 Output: Urine 575 / 1450 625 / 625 Other: Weight 66 kg Weight Measurement Method Standing Scale (1) CKD (chronic kidney disease) Chronic kidney disease stage: unspecified stage Qualified Code(s): N18.9 - Chronic kidney disease, unspecified
[2021-03-16] MEDS ORDERED: BUMETANIDE 2 MG in SYRINGE 0 ML IV ONE (17:00)
--- NOTE | 2021-03-16 18:21 | Hospitalist Progress Note ---
Date of Service March 16, 2021 Assessment & Plan (1) Acute on chronic heart failure with reduced ejection fraction and diastolic dysfunction: Mr. Fall is a 61-year-old male with a history of CAD, Ischemic Cardiomyopathy (LVEF 30% to 34%) s/p Bi-V AICD, Valvular Heart Disease, Hypertension, Dyslipidemia, PAD, Stage 4 CKD, Anemia, Chronic Intermittent Hyponatremia, BRYAN on CPAP, and Emphysema/COPD who present to the ER with an acute exacerbation of chronic systolic CHF. 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 and losing about 3 pounds of fluid weight over the weekend -- his SOB, DAVIS, and leg edema persisted. CXR consistent with pulmonary edema. ProBNP is > 35,000 pg/ml. Continues to improve, but is only net -445 mL, weight -2.7 kg, urine output has slowed down Appreciate nephrology and cardiology consultations Patient reports he would be against HD unless no other alternative. Was given 4 mg of IV Bumex on the evening of 03/16 Will continue IV Bumex 2 mg b.i.d. otherwise Closely monitor I&O's, body weights, and renal function. Continue Coreg 6.25 mg b.i.d.. Continue Losartan 25 mg daily - could consider switching to Entresto. Continue Imdur ER 30 mg b.i.d.. Continue Hydralazine 50 mg t.i.d.. (2) Ischemic cardiomyopathy: Ischemic Cardiomyopathy (LVEF 30% to 34%) s/p [employer] Claria MRI CORE MOUNTER-D Bi-V AICD -- [facility] -- Continue medications as outlined above. -- [employer] Claria MRI CORE MOUNTER-D BiV AICD -- last interrogated 02/23/21. (3) CAD (coronary artery disease): s/p PCI of Proximal to Mid LAD (3 drug-eluting stents 11/06/19, Chronic RCA Occlusion, 40% OM2 stenosis), no acute issues -- Continue medical management -- Continue Aspirin 81 mg daily. -- Continue Plavix 75 mg daily. Continue carvedilol, isosorbide, atorvastatin (4) Chronic kidney disease, stage V: Creatinine baseline is a 2.5 which is about where he is at today Secondary to chronic ureteral stricture and hydronephrosis -- Monitor daily labs. -- Followed by Dr. Handy. Appreciate nephrology consultation -- s/p RUE AV Fistula. -Decrease sodium bicarbonate down to 650 mg p.o. twice daily Checking iron studies in the morning (5) S/P ICD (internal cardiac defibrillator) procedure: -- [employer] Claria MRI CORE MOUNTER-D BiV AICD -- last interrogated 02/23/21. -- Has RA lead, RV lead, and LBB lead. -- QRS duration on EKG is 120 msec. (6) COPD (chronic obstructive pulmonary disease): With chronic cough since having Covid Give albuterol as needed-asked for dose now Continue daily Umeclidinium/Vilanterol (7) Iron deficiency anemia: Check iron studies in the morning Follow CBC-hemoglobin today is 10.8 which is stable from previous Continue home ferrous sulfate (8) Hypertension: Blood pressures are stable Continue meds as above (9) Hyperlipidemia: Continue statin (10) Eosinophilia: Eosinophilia is are quite high peripherally at 2650 and now trended downward to 1530 which is still significantly elevated Hemoglobin is mildly low as above likely secondary to chronic kidney disease, but platelets are normal No fevers No ongoing weight loss other than recent fluid weight loss, no diarrhea or abdominal pains Does have persistent cough since having Covid He is not on any new medications -Will consider pulmonology consultation tomorrow as he follows with pulmonology anyway -Check ova and parasites -Will also discuss with hematology in the morning - (11) Hypoxia: With acute on chronic respiratory failure with hypoxia-he has been on 2 L nasal cannula since discharge with Covid-19 pneumonia 2 months ago Now with worsening respiratory distress due to CHF as above Wean back down to 2 L nasal cannula with diuresis (12) DVT prophylaxis: Heparin SQ Disposition-continued stay Admission and Anticipated Discharge Date Admission Date: March 15, 2021 Subjective Patient reports feeling a little bit better today, less short of breath but still with a bad cough that he reports never went away since he had Covid.. He does feel that albuterol has helped him for this in the past but he has not taken any here. He was not urinating much throughout the day and was given an extra dose of Bumex 2 mg to make a total of 4 mg this evening by cardiology and nephrology. He denies chest pain, no nausea or vomiting, no abdominal pain. Telemetry with normal sinus rhythm, rates in the 70s-90s, paced beats Review of Systems Review of Systems: All systems reviewed & are unremarkable except as noted in HPI & below Physical Exam Constitutional: WD/WN, vitals as above Eyes: + anicteric sclerae Neck: trachea midline, no thyromegaly Respiratory: normal respiratory effort and + cough Auscultation: + crackles (bibasilar); no rhonchi and no wheezes Cardiovascular: RRR, no murmur, no edema Chest (Breasts): Chest: normal inspection of chest Gastrointestinal (Abdomen): normal bowel sounds, soft, nontender, no hepatosplenomegaly Musculoskeletal: Extremities: extremities normal to inspection; no cyanosis and no clubbing Skin: no rashes, warm and dry Neurologic: moves all extremities and awake; no focal motor deficits Psychiatric: A+Ox3, euthymic affect Lymphatic: no lymphedema Results & Data Results & Data ([facility]) Vital Signs (Past 12 Hours) Vital Signs Temp Pulse Pulse Resp BP Pulse Ox 03/16/21 15:17 36.8 C 84 16 109/67 92 03/16/21 15:00 83 03/16/21 11:05 36.5 C 87 16 109/61 95 03/16/21 07:30 82 03/16/21 07:16 36.5 C 83 16 123/70 96 Laboratory Results 03/16/21 03/16/21 Range/Units 06:01 06:01 WBC 9.61 (4.8-10.8) K/uL RBC 3.36 L (4.7-6.1) M/uL Hgb 10.8 L (14.0-18.0) g/dL Hct 32.1 L (42-52) % MCV 95.5 (80-100) fL MCH 32.1 (25-34) pg MCHC 33.6 (32-36) g/dL RDW Std Deviation 52.8 H (36.4-46.3) fL RDW Coeff of Monika 15.0 H (11.5-14.5) % Plt Count 253 (130-400) K/uL MPV 9.5 (7.4-10.4) fL Immature Gran % (Auto) 0.3 % Neut % (Auto) 57.3 % Lymph % (Auto) 16.3 % [place] % (Auto) 9.8 % Eos % (Auto) 15.9 % Baso % (Auto) 0.4 % Neut # (Auto) 5.50 (1.4-6.5) K/uL Lymph # (Auto) 1.57 (1.2-3.4) K/uL [place] # (Auto) 0.94 H (0.11-0.59) K/uL Eos # (Auto) 1.53 H (0-0.5) K/uL Baso # (Auto) 0.04 (0-0.2) K/uL Immature Gran # (Auto) 0.03 H (0.00-0.02) K/uL Sodium 138 (136-145) mmol/L Potassium 3.6 (3.5-5.1) mmol/L Chloride 103 (98-107) mmol/L Carbon Dioxide 30 (21-32) mmol/L Anion Gap 5.0 (3-11) BUN 42 H (7-18) mg/dl Creatinine 2.62 H (0.6-1.4) mg/dl Est Cr Clr Drug Dosing 26.9 ml/min Est GFR ( Amer) 28.8 Est GFR (Non-Af Amer) 24.9 BUN/Creatinine Ratio 16.2 (10-20) Glucose 98 (70-99) mg/dl Calcium 8.4 L (8.5-10.1) mg/dl Magnesium 2.2 (1.8-2.4) mg/dl PG Care Time/CCT Total # of Minutes Spent Total Time Spent with Patient: Total time spent is greater than 50% in coordination of care (as documented) at patient's floor/unit and/or counseling patient: Coding Level of Care Code 02880 Subseq Hosp Care Lvl 3 Diagnoses Acute on chronic heart failure with reduced ejection fraction and diastolic dysfunction I50.43 Ischemic cardiomyopathy I25.5 CAD (coronary artery disease) I25.10 Associated angina: without angina Coronary Disease-Associated Artery/Lesion type: rampart artery [place] vs. transplanted heart: rampart heart Chronic kidney disease, stage V N18.5 S/P ICD (internal cardiac defibrillator) procedure Z95.810 COPD (chronic obstructive pulmonary disease) J44.9 COPD type: unspecified COPD Iron deficiency anemia D50.9 Iron deficiency anemia type: unspecified iron deficiency Hypertension I10 Hypertension type: essential hypertension Hyperlipidemia E78.5 Eosinophilia D72.10 Hypoxia R09.02 DVT prophylaxis Z29.9 (1) CAD (coronary artery disease) Associated angina: without angina Coronary Disease-Associated Artery/Lesion type: rampart artery [place] vs. transplanted heart: rampart heart Qualified Code(s): I25.10 - Atherosclerotic heart disease of rampart coronary artery without angina pectoris (2) COPD (chronic obstructive pulmonary disease) COPD type: unspecified COPD Qualified Code(s): J44.9 - Chronic obstructive pulmonary disease, unspecified (3) Iron deficiency anemia Iron deficiency anemia type: unspecified iron deficiency Qualified Code(s): D50.9 - Iron deficiency anemia, unspecified (4) Hypertension Hypertension type: essential hypertension Qualified Code(s): I10 - Essential (primary) hypertension
[2021-03-16] MEDS: ALBUTEROL HFA 8 GM INHALER INH PRN (19:33)
[2021-03-16] MEDS: ATORVASTATIN 40 MG TAB PO SCH (20:11)
[2021-03-17] MEDS: ALBUTEROL HFA 8 GM INHALER INH PRN ×4 (03:55→22:30)
--- NOTE | 2021-03-17 05:55 | Electrocardiogram Report ---
Test Reason : Blood Pressure : / mmHG Vent. Rate : 088 BPM Atrial Rate : 088 BPM P-R Int : 128 ms QRS Dur : 166 ms QT Int : 422 ms P-R-T Axes : 000 -22 147 degrees QTc Int : 510 ms Atrial-sensed ventricular-paced rhythm Abnormal ECG When compared with ECG of 15-MAR-2021 05:44, Vent. rate has increased BY 4 BPM Confirmed by Jean-Claude Payton ([id number]) on 03/17/2021 5:55:16 AM Referred By: Erlin Duncan Confirmed By:Jean-Claude Payton
[2021-03-17 06:07] LABS: Basophils # (auto) 0.05 K/uL (0-0.2); Basophils % (auto) 0.6 %; Hematocrit (blood only) 33.1 % (42-52); Hemoglobin 10.7 g/dL (14.0-18.0); Immature Granulocytes # (auto) 0.01 K/uL (0.00-0.02); Immature Granulocytes % (auto) 0.1 %; Lymphocytes # (auto) 1.83 K/uL (1.2-3.4); Lymphocytes % (auto) 22.6 %; Mean Corpuscular Hemoglobin 31.4 pg (25-34); Mean Corpuscular Hgb Conc 32.3 g/dL (32-36); Mean Corpuscular Volume 97.1 fL (80-100); Mean Platelet Volume 9.6 fL (7.4-10.4); Monocytes # (auto) 0.86 K/uL (0.11-0.59); Monocytes % (auto) 10.6 %; Neutrophils # (auto) 4.05 K/uL (1.4-6.5); Neutrophils % (auto) 50.1 %; Platelet Count 269 K/uL (130-400); RDW Coefficient of Variation 15.1 % (11.5-14.5); RDW Standard Deviation 53.6 fL (36.4-46.3); Red Blood Count 3.41 M/uL (4.7-6.1)
[2021-03-17 06:36] LABS: BUN Creatinine Ratio 15.9 (10-20); Calcium 8.4 mg/dl (8.5-10.1); Creatinine Clr Calc Pharmacy 26.7 ml/min; Est GFR (African American) 28.1 ml/min; Est GFR (Non-African American) 24.2 ml/min; Magnesium 2.2 mg/dl (1.8-2.4); Potassium 3.5 mmol/L (3.5-5.1)
[2021-03-17 06:44] LABS: Ferritin 107.5 ng/ml (8-388)
[2021-03-17] MEDS: SODIUM BICARBONATE 650 MG TAB PO SCH (07:49)
[2021-03-17] MEDS: LOSARTAN POTASSIUM 25 MG TAB PO SCH (07:49)
[2021-03-17] MEDS: ASPIRIN 81 MG ECTAB PO SCH (07:49)
[2021-03-17] MEDS: CLOPIDOGREL BISULFATE 75 MG TAB PO SCH (07:49)
[2021-03-17] MEDS: ISOSORBIDE MONO EXTENDED REL 30 MG TABCR PO SCH ×2 (07:49→20:04)
[2021-03-17] MEDS: PANTOprazole 40 MG TAB PO SCH (07:49)
[2021-03-17] MEDS: BUMETANIDE 2 MG in SYRINGE 0 ML IV SCH (07:50)
[2021-03-17] MEDS: hydrALAZINE TAB 50 MG TAB PO SCH ×3 (07:50→20:03)
[2021-03-17] MEDS: CHOLECALCIFEROL 1,000 UNITS 25 MCG TAB PO SCH (07:50)
[2021-03-17] MEDS: CEROVITE ADV FORMULA TAB PO SCH (07:50)
[2021-03-17] MEDS: FERROUS SULFATE 325 MG TAB PO SCH (07:50)
[2021-03-17] MEDS: carvediloL 6.25 MG TAB PO SCH ×2 (07:50→20:02)
[2021-03-17] MEDS: UMECLIDINIUM/VILANTEROL 62.5/25MCG 7 PUFFS/INHALER INH SCH (07:51)
[2021-03-17] MEDS: HEPARIN SOD 5,000 UNIT/0.5 ML VIAL SQ SCH ×2 (07:54→20:03)
[2021-03-17] MEDS ORDERED: BUMETANIDE 2 MG in SYRINGE 0 ML IV STA (08:10)
--- NOTE | 2021-03-17 11:19 | Nephrology Progress Note ---
Date of Service March 17, 2021 Assessment & Plan (1) Acute on chronic heart failure with reduced ejection fraction and diastolic dysfunction: Discrepancy between I/O's and weights. Goal is to encourage a negative fluid balance of >1.5 L/d. Bumex increased from 2 mg twice daily to 4 mg twice daily this AM. If response to AM dose is not adequate, consider starting gtt. Cardiology following. Document I/O's and daily weight. (2) CKD (chronic kidney disease): Kidney function stable. Non-oliguric. Electrolytes acceptable. No emergent indication for dialysis at this time. Will continue to monitor. Potential indications for dialysis reviewed today. Medications appropriately dosed for kidney dysfunction. (3) Metabolic acidosis: Oral NaHCO3 stopped this AM. Repeat metabolic profile tomorrow AM. (4) Iron deficiency anemia: Chronic, stable. YONNY therapy deferred for now. Tsat low at 20%. IV Venofer 200 mg provided today. Admission and Anticipated Discharge Date Admission Date: March 15, 2021 Subjective No acute events overnight. Keron reports persistent cough. Breathing is a little worse today. He does not feel that he has diuresed well. Keron is concerned that his weight has increased 0.8 kg in the past 24 hours. No fevers or chills. No chest pain. Review of Systems Review of Systems: All systems reviewed & are unremarkable except as noted in HPI & below Physical Exam Constitutional: well developed; no acute distress Eyes: no scleral abnormality and no corneal abnormality ENMT: Mouth: no oral mucosal abnormality and oral mucous membranes not dry Neck: normal visual inspection and trachea midline Respiratory: normal respiratory effort Auscultation: + rales Cardiovascular: Rate/Rhythm: regular rate Heart Sounds: normal S1 and normal S2 Vessels: + JVD Extremities: + AV fistula; no edema Musculoskeletal: Extremities: no cyanosis and no clubbing Skin: normal turgor; no lesions Neurologic: Motor/Sensory: no tremor and no asterixis Psychiatric: Orientation: alert and oriented x 3 Results & Data ([facility]) Vital Signs (Past 12 Hours) Vital Signs Temp Pulse Pulse Resp BP Pulse Ox 03/17/21 07:41 36.9 C 83 20 118/66 96 03/17/21 07:00 91 H 03/17/21 04:30 36.6 C 83 18 103/61 95 03/17/21 03:56 24 03/17/21 00:13 89 03/16/21 23:44 36.5 C 86 20 112/63 96 Laboratory Results Laboratory Results - last 24 hr 03/17/21 03/17/21 05:14 05:14 WBC 8.10 RBC 3.41 L Hgb 10.7 L Hct 33.1 L MCV 97.1 MCH 31.4 MCHC 32.3 RDW Std Deviation 53.6 H RDW Coeff of Monika 15.1 H Plt Count 269 MPV 9.6 Immature Gran % (Auto) 0.1 Neut % (Auto) 50.1 Lymph % (Auto) 22.6 [place] % (Auto) 10.6 Eos % (Auto) 16.0 Baso % (Auto) 0.6 Neut # (Auto) 4.05 Lymph # (Auto) 1.83 [place] # (Auto) 0.86 H Eos # (Auto) 1.30 H Baso # (Auto) 0.05 Immature Gran # (Auto) 0.01 Sodium 136 Potassium 3.5 Chloride 102 Carbon Dioxide 27 Anion Gap 7.0 BUN 43 H Creatinine 2.68 H Est Cr Clr Drug Dosing 26.7 Est GFR ( Amer) 28.1 Est GFR (Non-Af Amer) 24.2 BUN/Creatinine Ratio 15.9 Glucose 94 Calcium 8.4 L Magnesium 2.2 Iron 33 L Transferrin 172 L Transferrin % Sat 14 L Ferritin 107.5 PG Care Time/CCT Total # of Minutes Spent Total Time Spent with Patient: Total time spent is greater than 50% in coordination of care (as documented) at patient's floor/unit and/or counseling patient: Coding Level of Care Code 73359 Subseq Hosp Care Lvl 3 Diagnoses Acute on chronic heart failure with reduced ejection fraction and diastolic dysfunction I50.43 CKD (chronic kidney disease) N18.9 Chronic kidney disease stage: unspecified stage Metabolic acidosis E87.2 Iron deficiency anemia D50.9 Iron deficiency anemia type: unspecified iron deficiency (1) CKD (chronic kidney disease) Chronic kidney disease stage: unspecified stage Qualified Code(s): N18.9 - Chronic kidney disease, unspecified (2) Iron deficiency anemia Iron deficiency anemia type: unspecified iron deficiency Qualified Code(s): D50.9 - Iron deficiency anemia, unspecified
[2021-03-17] MEDS ORDERED: IRON SUCROSE 200 MG in 0.9 % SODIUM CHLORIDE 100 ML IV ONE (11:30)
--- NOTE | 2021-03-17 12:17 | Cardiology Progress Note ---
Date of Service March 17, 2021 Assessment & Plan (1) Acute on chronic heart failure with reduced ejection fraction and diastolic dysfunction: (2) CKD (chronic kidney disease): -Cough is likely multifactorial and related to his recent COVID-19 pneumonia and congestive heart failure. -Creatinine remains relatively stable, 2.68 today, 2.69 on admission. -Bumex dose discussed with Dr. Villalta, increased to 4 mg twice daily. Continue subcu heparin for DVT prophylaxis. Admission and Anticipated Discharge Date Admission Date: March 15, 2021 Subjective Patient seen in cardiology follow-up of his chief complaint of shortness of breath, orthopnea, cough. He expresses being frustrated. He has difficulty sleeping due to ongoing cough. Urine output improved last evening having received an extra dose of Bumex, p.m. of 03/16/2021, 4 mg of Bumex total at that time. Urine output had increased to 1.9 mL overnight. Still with coarse cough, has coughing spells with deep inspiration. Physical Exam Physical Exam: Temp Pulse Resp BP Pulse Ox 36.9 C 83 20 118/66 96 03/17/21 07:41 03/17/21 07:41 03/17/21 07:41 03/17/21 07:41 03/17/21 07:41 Constitutional: WD/WN, vitals as above Respiratory: + cough (Cough reproduced with inspiration) Auscultation: + rales (Mild rales at the bases) Cardiovascular: Rate/Rhythm: regular rhythm Heart Sounds: normal S1 and normal S2; no murmur Extremities: no edema Gastrointestinal (Abdomen): normal bowel sounds, soft, nontender, no hepatosplenomegaly Neurologic: PERRL, EOMI, accommodation nl, no face palsy, no dysarthria Results & Data ([facility]) Vital Signs (Past 12 Hours) Vital Signs Temp Pulse Pulse Resp BP Pulse Ox 03/17/21 07:41 36.9 C 83 20 118/66 96 03/17/21 07:00 91 H 03/17/21 04:30 36.6 C 83 18 103/61 95 03/17/21 03:56 24 Laboratory Results CBC 03/17/21 Range/Units 05:14 WBC 8.10 (4.8-10.8) K/uL RBC 3.41 L (4.7-6.1) M/uL Hgb 10.7 L (14.0-18.0) g/dL Hct 33.1 L (42-52) % Plt Count 269 (130-400) K/uL Neut # (Auto) 4.05 (1.4-6.5) K/uL Lymph # (Auto) 1.83 (1.2-3.4) K/uL [place] # (Auto) 0.86 H (0.11-0.59) K/uL Eos # (Auto) 1.30 H (0-0.5) K/uL Baso # (Auto) 0.05 (0-0.2) K/uL Comprehensive Metabolic Panel 03/17/21 Range/Units 05:14 Sodium 136 (136-145) mmol/L Potassium 3.5 (3.5-5.1) mmol/L Chloride 102 (98-107) mmol/L Carbon Dioxide 27 (21-32) mmol/L BUN 43 H (7-18) mg/dl Creatinine 2.68 H (0.6-1.4) mg/dl Glucose 94 (70-99) mg/dl Calcium 8.4 L (8.5-10.1) mg/dl Intake and Output 03/16/21 03/17/21 03/17/21 22:59 06:59 14:59 Intake Total 390 / 665 Output Total 1974 Balance -385 / -1310 -575 / -1310 Intake: Oral 390 / 665 Output: Urine 1974 Other: Other Intake Source Sips Weight 66.8 kg Weight Measurement Method Standing Scale (1) CKD (chronic kidney disease) Chronic kidney disease stage: unspecified stage Qualified Code(s): N18.9 - Chronic kidney disease, unspecified
[2021-03-17] MEDS ORDERED: guaiFENesin/DEXTROM SYRUP 200MG/20MG 10ML UDC PO PRN (13:55)
[2021-03-17] MEDS ORDERED: COUGH DROP (SUGAR FREE) LOZ 24 LOZ/1 BOX BUCCAL STA (14:18)
[2021-03-17] MEDS ORDERED: methylPREDNISolone 125 MG/2 ML VIAL IV STA (17:16)
--- NOTE | 2021-03-17 17:23 | Hospitalist Progress Note ---
Date of Service March 17, 2021 Assessment & Plan (1) Acute on chronic heart failure with reduced ejection fraction and diastolic dysfunction: Mr. Fall is a 61-year-old male with a history of CAD, Ischemic Cardiomyopathy (LVEF 30% to 34%) s/p Bi-V AICD, Valvular Heart Disease, Hypertension, Dyslipidemia, PAD, Stage 4 CKD, Anemia, Chronic Intermittent Hyponatremia, BRYAN on CPAP, and Emphysema/COPD who present to the ER with an acute exacerbation of chronic systolic CHF. Overall improved, is finally starting to diurese with increased dosing of Bumex I/O net -1.7L, weight -0.9kg kg, not consistent Sluice Tender stable at 2.6 Appreciate nephrology and cardiology consultations Patient reports he would be against HD unless no other alternative. Was given 4 mg of IV Bumex on the evening of 03/16 and had improved UOP -continue IV Bumex 4 mg IV b.i.d. today and then HOLD for AM until see renal fu nction in AM -Nephro suggests Bumex gtt if not having good UOP Closely monitor I&O's, body weights, and renal function. Continue Coreg 6.25 mg b.i.d.. Continue Losartan 25 mg daily - could consider switching to Entresto. Continue Imdur ER 30 mg b.i.d.. Continue Hydralazine 50 mg t.i.d.. (2) Ischemic cardiomyopathy: Ischemic Cardiomyopathy (LVEF 30% to 34%) s/p [employer] GENERATION TECHNOLOGIST-D Bi-V AICD -- [facility] -- Continue medications as outlined above. -- [employer] MRI GENERATION TECHNOLOGIST-D BiV AICD -- last interrogated 02/23/21. (3) Hypoxia: With acute on chronic respiratory failure with hypoxia-he has been on 2 L nasal cannula since discharge with Covid-19 pneumonia 2 months ago Now with worsening respiratory distress due to CHF as above, required 4LNC initially COntinue to wean back down to 2 L nasal cannula with diuresis and tx of COPD (4) COPD (chronic obstructive pulmonary disease): With chronic cough since having Covid which is worsening today, increased wheezing Now with acute on chronic COPD exacerbation With significant hypereosinophilia on admission, unclear if related to pulm process? Continue daily Umeclidinium/Vilanterol -add on prn DUonebs continue albuterol HFA prn -add IV SOlu Medrol -add on guaifenesin DM prn -COnsider PULM consult given eosinophilia and significant cough, wheezing (5) CAD (coronary artery disease): s/p PCI of Proximal to Mid LAD (3 drug-eluting stents 11/06/19, Chronic RCA Occlusion, 40% OM2 stenosis), no acute issues -- Continue medical management -- Continue Aspirin 81 mg daily. -- Continue Plavix 75 mg daily. Continue carvedilol, isosorbide, atorvastatin (6) Chronic kidney disease, stage V: Creatinine baseline is a 2.5 Sluice Tender today stable at 2.6 in setting of IV diuresis Secondary to chronic ureteral stricture and hydronephrosis -- Monitor daily labs. -- Followed by Dr. Handy. Appreciate nephrology consultation -- s/p RUE AV Fistula. -can now dc sodium bicarbonate (7) S/P ICD (internal cardiac defibrillator) procedure: -- [employer] MRI GENERATION TECHNOLOGIST-D BiV AICD -- last interrogated 02/23/21. -- Has RA lead, RV lead, and LBB lead. -- QRS duration on EKG is 120 msec. (8) Iron deficiency anemia: Follow CBC-hemoglobin today is 10.7 which is stable from previous Continue home ferrous sulfate Fe studies here with low transferrin sat 14% -IV Venofer given x 1 (9) Hypertension: Blood pressures are stable Continue meds as above (10) Hyperlipidemia: Continue statin (11) Eosinophilia: Eosinophilia is are quite high peripherally at 2650 and now trended [address] to 1300 which is still significantly elevated Hemoglobin is mildly low as above likely secondary to chronic kidney disease, but platelets are normal No fevers No ongoing weight loss other than recent fluid weight loss, no diarrhea or abdominal pains Does have persistent cough since having Covid-question hypersensitivity pneumonitis He is not on any new medications -Will consider pulmonology consultation tomorrow as he follows with pulmonology anyway -Check ova and parasites-pending/not collected Discussed with Hematology who did not feel was likely related to leukemia (12) DVT prophylaxis: Heparin SQ Disposition-continued stay on tele Admission and Anticipated Discharge Date Admission Date: March 15, 2021 Subjective Pt c/o a lot of coughing today that is very frustrating and non-stop; also wheezing. Still has some SOB at times. Is not making a lot of urine despite the increased dose of Bumex again this AM. Denies chest pain. Is eating. Is moving bowels Tele with paced rhythm, PVCs, rates 70-90s Review of Systems Review of Systems: All systems reviewed & are unremarkable except as noted in HPI & below Physical Exam Constitutional: WD/WN, vitals as above Eyes: + anicteric sclerae Neck: trachea midline, no thyromegaly Respiratory: normal respiratory effort and + cough Auscultation: + crackles (bibasilar) and + wheezes (diffuse bilat); no rhonchi Cardiovascular: RRR, no murmur, no edema Chest (Breasts): Chest: normal inspection of chest Gastrointestinal (Abdomen): normal bowel sounds, soft, nontender, no hepatosplenomegaly Musculoskeletal: Extremities: extremities normal to inspection; no cyanosis and no clubbing Skin: no rashes, warm and dry Neurologic: moves all extremities and awake; no focal motor deficits Psychiatric: A+Ox3, euthymic affect Results & Data Results & Data ([facility]) Vital Signs (Past 12 Hours) Vital Signs Temp Pulse Pulse Resp BP Pulse Ox 03/17/21 17:06 36.8 C 92 H 18 125/76 95 03/17/21 14:53 86 03/17/21 13:13 36.4 C L 94 H 18 94/57 L 94 03/17/21 12:53 36.6 C 91 H 18 117/67 95 03/17/21 12:45 91 H 18 99 03/17/21 12:25 36.6 C 96 H 20 116/63 93 03/17/21 07:41 36.9 C 83 20 118/66 96 03/17/21 07:00 91 H Laboratory Results 03/17/21 03/17/21 Range/Units 05:14 05:14 WBC 8.10 (4.8-10.8) K/uL RBC 3.41 L (4.7-6.1) M/uL Hgb 10.7 L (14.0-18.0) g/dL Hct 33.1 L (42-52) % MCV 97.1 (80-100) fL MCH 31.4 (25-34) pg MCHC 32.3 (32-36) g/dL RDW Std Deviation 53.6 H (36.4-46.3) fL RDW Coeff of Monika 15.1 H (11.5-14.5) % Plt Count 269 (130-400) K/uL MPV 9.6 (7.4-10.4) fL Immature Gran % (Auto) 0.1 % Neut % (Auto) 50.1 % Lymph % (Auto) 22.6 % [place] % (Auto) 10.6 % Eos % (Auto) 16.0 % Baso % (Auto) 0.6 % Neut # (Auto) 4.05 (1.4-6.5) K/uL Lymph # (Auto) 1.83 (1.2-3.4) K/uL [place] # (Auto) 0.86 H (0.11-0.59) K/uL Eos # (Auto) 1.30 H (0-0.5) K/uL Baso # (Auto) 0.05 (0-0.2) K/uL Immature Gran # (Auto) 0.01 (0.00-0.02) K/uL Sodium 136 (136-145) mmol/L Potassium 3.5 (3.5-5.1) mmol/L Chloride 102 (98-107) mmol/L Carbon Dioxide 27 (21-32) mmol/L Anion Gap 7.0 (3-11) BUN 43 H (7-18) mg/dl Creatinine 2.68 H (0.6-1.4) mg/dl Est Cr Clr Drug Dosing 26.7 ml/min Est GFR ( Amer) 28.1 ml/min Est GFR (Non-Af Amer) 24.2 ml/min BUN/Creatinine Ratio 15.9 (10-20) Glucose 94 (70-99) mg/dl Calcium 8.4 L (8.5-10.1) mg/dl Magnesium 2.2 (1.8-2.4) mg/dl Iron 33 L (35-175) mcg/dl Transferrin 172 L (200-360) mg/dl Transferrin % Sat 14 L (20-50) % Ferritin 107.5 (8-388) ng/ml PG Care Time/CCT Total # of Minutes Spent Total Time Spent with Patient: Total time spent is greater than 50% in coordination of care (as documented) at patient's floor/unit and/or counseling patient: Coding Level of Care Code 61928 Subseq Hosp Care Lvl 3 Diagnoses Acute on chronic heart failure with reduced ejection fraction and diastolic dysfunction I50.43 Ischemic cardiomyopathy I25.5 Hypoxia R09.02 COPD (chronic obstructive pulmonary disease) J44.9 COPD type: unspecified COPD CAD (coronary artery disease) I25.10 Associated angina: without angina Coronary Disease-Associated Artery/Lesion type: [place] artery [place] vs. transplanted heart: [place] heart Chronic kidney disease, stage V N18.5 S/P ICD (internal cardiac defibrillator) procedure Z95.810 Iron deficiency anemia D50.9 Iron deficiency anemia type: unspecified iron deficiency Hypertension I10 Hypertension type: essential hypertension Hyperlipidemia E78.5 Eosinophilia D72.10 DVT prophylaxis Z29.9 (1) CAD (coronary artery disease) Associated angina: without angina Coronary Disease-Associated Artery/Lesion type: [place] artery [place] vs. transplanted heart: [place] heart Qualified Code(s): I25.10 - Atherosclerotic heart disease of [place] coronary artery without angina pectoris (2) Iron deficiency anemia Iron deficiency anemia type: unspecified iron deficiency Qualified Code(s): D50.9 - Iron deficiency anemia, unspecified (3) COPD (chronic obstructive pulmonary disease) COPD type: unspecified COPD Qualified Code(s): J44.9 - Chronic obstructive pulmonary disease, unspecified (4) Hypertension Hypertension type: essential hypertension Qualified Code(s): I10 - Essential (primary) hypertension
[2021-03-17] MEDS: BUMETANIDE 4 MG in SYRINGE 0 ML IV SCH (17:40)
[2021-03-17] MEDS ORDERED: methylPREDNISolone 125 MG in SYRINGE 0 ML IV ONE (17:45)
[2021-03-17] MEDS ORDERED: ALBUT/IPRATROP 3MG/0.5MG NEB 3 ML VIAL NEB STA (18:27)
[2021-03-17] MEDS: ATORVASTATIN 40 MG TAB PO SCH (20:02)
[2021-03-17] MEDS: methylPREDNISolone 60 MG in SYRINGE 0 ML IV SCH (22:31)
[2021-03-18] MEDS: ALBUTEROL HFA 8 GM INHALER INH PRN ×2 (02:47→22:57)
[2021-03-18 06:33] LABS: Basophils # (auto) 0.01 K/uL (0-0.2); Basophils % (auto) 0.3 %; Eosinophils # (auto) 0.02 K/uL (0-0.5); Eosinophils % (auto) 0.5 %; Hematocrit (blood only) 32.9 % (42-52); Hemoglobin 10.8 g/dL (14.0-18.0); Immature Granulocytes # (auto) 0.01 K/uL (0.00-0.02); Immature Granulocytes % (auto) 0.3 %; Lymphocytes # (auto) 0.56 K/uL (1.2-3.4); Lymphocytes % (auto) 14.1 %; Mean Corpuscular Hemoglobin 31.1 pg (25-34); Mean Corpuscular Hgb Conc 32.8 g/dL (32-36); Mean Corpuscular Volume 94.8 fL (80-100); Mean Platelet Volume 9.7 fL (7.4-10.4); Monocytes # (auto) 0.05 K/uL (0.11-0.59); Monocytes % (auto) 1.3 %; Neutrophils # (auto) 3.33 K/uL (1.4-6.5); Neutrophils % (auto) 83.5 %; Platelet Count 254 K/uL (130-400); RDW Coefficient of Variation 14.9 % (11.5-14.5); RDW Standard Deviation 51.4 fL (36.4-46.3); Red Blood Count 3.47 M/uL (4.7-6.1); White Blood Count 3.98 K/uL (4.8-10.8)
[2021-03-18 07:01] LABS: Calcium 8.7 mg/dl (8.5-10.1); Creatinine Clr Calc Pharmacy 28.1 ml/min; Est GFR (African American) 29.9 ml/min; Est GFR (Non-African American) 25.8 ml/min; Magnesium 2.3 mg/dl (1.8-2.4); Potassium 3.7 mmol/L (3.5-5.1)
[2021-03-18] MEDS: CHOLECALCIFEROL 1,000 UNITS 25 MCG TAB PO SCH (07:45)
[2021-03-18] MEDS: PANTOprazole 40 MG TAB PO SCH (07:45)
[2021-03-18] MEDS: hydrALAZINE TAB 50 MG TAB PO SCH ×3 (07:45→20:00)
[2021-03-18] MEDS: ISOSORBIDE MONO EXTENDED REL 30 MG TABCR PO SCH ×2 (07:45→20:00)
[2021-03-18] MEDS: CEROVITE ADV FORMULA TAB PO SCH (07:46)
[2021-03-18] MEDS: carvediloL 6.25 MG TAB PO SCH ×2 (07:46→19:59)
[2021-03-18] MEDS: LOSARTAN POTASSIUM 25 MG TAB PO SCH (07:46)
[2021-03-18] MEDS: HEPARIN SOD 5,000 UNIT/0.5 ML VIAL SQ SCH ×3 (07:46→20:00)
[2021-03-18] MEDS: CLOPIDOGREL BISULFATE 75 MG TAB PO SCH (07:46)
[2021-03-18] MEDS: ASPIRIN 81 MG ECTAB PO SCH (07:46)
[2021-03-18] MEDS: FERROUS SULFATE 325 MG TAB PO SCH (07:47)
[2021-03-18] MEDS: UMECLIDINIUM/VILANTEROL 62.5/25MCG 7 PUFFS/INHALER INH SCH (07:47)
[2021-03-18] MEDS: methylPREDNISolone 60 MG in SYRINGE 0 ML IV SCH ×2 (07:47→20:00)
--- NOTE | 2021-03-18 09:02 | Nephrology Progress Note ---
Date of Service March 18, 2021 Assessment & Plan (1) Acute on chronic heart failure with reduced ejection fraction and diastolic dysfunction: Clinical improvement noted. Continue Bumex 4 mg twice daily today. Document strict I/O's and daily weight. (2) CKD (chronic kidney disease): Kidney function stable. Non-oliguric. Electrolytes acceptable. No emergent indication for dialysis at this time. Will continue to monitor. Potential indications for dialysis reviewed today. Plan to arrange TOPS education post discharge. [facility] to [facility]. Keron has expressed interest in home dialysis options. Medications appropriately dosed for kidney dysfunction. (3) Iron deficiency anemia: Chronic, stable. YONNY therapy deferred for now. Tsat low at 20%. IV Venofer 200 mg provided yesterday with additional 200 mg IV today. Admission and Anticipated Discharge Date Admission Date: March 15, 2021 Subjective No acute events overnight. Keron is feeling a lot better today. Breathing improved. Denies significant dyspnea at rest. He would like to try to ambulate more today. Feeling very deconditioned. Productive cough. Denies chest pain. No palpitations. No fevers or chills. Review of Systems Review of Systems: All systems reviewed & are unremarkable except as noted in HPI & below Physical Exam Constitutional: well developed; no acute distress Eyes: no scleral abnormality and no corneal abnormality ENMT: Mouth: no oral mucosal abnormality and oral mucous membranes not dry Neck: normal visual inspection and trachea midline Respiratory: normal respiratory effort Auscultation: lungs clear to auscultation bilaterally and + wheezes Cardiovascular: Rate/Rhythm: regular rate Heart Sounds: normal S1 and normal S2 Vessels: + JVD Extremities: + AV fistula; no edema Musculoskeletal: Extremities: no cyanosis and no clubbing Skin: normal turgor; no lesions Neurologic: Motor/Sensory: no tremor and no asterixis Psychiatric: Orientation: alert and oriented x 3 Results & Data ([facility]) Vital Signs (Past 12 Hours) Vital Signs Temp Pulse Pulse Resp BP Pulse Ox 03/18/21 08:00 79 03/18/21 07:46 36.8 C 88 20 117/66 93 03/18/21 02:46 36.5 C 93 H 20 128/71 95 03/17/21 23:54 92 H 03/17/21 22:50 36.6 C 87 18 121/65 90 03/17/21 21:36 36.6 C 100 H 21 139/74 90 Laboratory Results Laboratory Results - last 24 hr 03/18/21 03/18/21 05:59 05:59 WBC 3.98 L RBC 3.47 L Hgb 10.8 L Hct 32.9 L MCV 94.8 MCH 31.1 MCHC 32.8 RDW Std Deviation 51.4 H RDW Coeff of Monika 14.9 H Plt Count 254 MPV 9.7 Immature Gran % (Auto) 0.3 Neut % (Auto) 83.5 Lymph % (Auto) 14.1 [place] % (Auto) 1.3 Eos % (Auto) 0.5 Baso % (Auto) 0.3 Neut # (Auto) 3.33 Lymph # (Auto) 0.56 L [place] # (Auto) 0.05 L Eos # (Auto) 0.02 Baso # (Auto) 0.01 Immature Gran # (Auto) 0.01 Sodium 136 Potassium 3.7 Chloride 102 Carbon Dioxide 25 Anion Gap 9.0 BUN 46 H Creatinine 2.54 H Est Cr Clr Drug Dosing 28.1 Est GFR ( Amer) 29.9 Est GFR (Non-Af Amer) 25.8 BUN/Creatinine Ratio 18.0 Glucose 144 H Calcium 8.7 Magnesium 2.3 PG Care Time/CCT Total # of Minutes Spent Total Time Spent with Patient: Total time spent is greater than 50% in coordination of care (as documented) at patient's floor/unit and/or counseling patient: Coding Level of Care Code 54154 Subseq Hosp Care Lvl 3 Diagnoses Acute on chronic heart failure with reduced ejection fraction and diastolic dysfunction I50.43 CKD (chronic kidney disease) N18.9 Chronic kidney disease stage: unspecified stage Iron deficiency anemia D50.9 Iron deficiency anemia type: unspecified iron deficiency (1) CKD (chronic kidney disease) Chronic kidney disease stage: unspecified stage Qualified Code(s): N18.9 - Chronic kidney disease, unspecified (2) Iron deficiency anemia Iron deficiency anemia type: unspecified iron deficiency Qualified Code(s): D50.9 - Iron deficiency anemia, unspecified
[2021-03-18] MEDS ORDERED: POTASSIUM CHLORIDE 10 MEQ TABCR PO STA (09:10)
[2021-03-18] MEDS ORDERED: IRON SUCROSE 200 MG in 0.9 % SODIUM CHLORIDE 100 ML IV ONE (09:15)
[2021-03-18] MEDS: BUMETANIDE 4 MG in SYRINGE 0 ML IV SCH ×2 (09:39→17:45)
--- NOTE | 2021-03-18 10:26 | Cardiology Progress Note ---
Date of Service March 18, 2021 Assessment & Plan (1) Acute on chronic heart failure with reduced ejection fraction and diastolic dysfunction: (2) CKD (chronic kidney disease): -Cough is likely multifactorial and related to his recent COVID-19 pneumonia, underlying COPD and congestive heart failure. -Creatinine remains stable, actually marginally improved today at 2.58 mg/dL, continue Bumex 4 mg IV twice daily. -Supplement potassium, 10 mEq today for potassium 3.7. -Agree with course of corticosteroids given cough over the last few days that had not responded to diuretic therapy. Continue prior to hospital bronchodilator therapy. Nephrology input noted and appreciated with regards to iron replacement. Continue subcutaneous heparin for DVT prophylaxis. Remain in the hospital on telemetry for diuretic therapy. Dr Azam De La Cruz assuming rounds for service 03/19/2021. Admission and Anticipated Discharge Date Admission Date: March 15, 2021 Subjective Mr. Fall is seen in cardiology follow-up of his chief complaint of shortness of breath, orthopnea, cough. Corticosteroids started yesterday, and patient had significant diuretic effect, with 2.5 L of urine output in the last 24 hours. This morning is the first day I have examined him where he has not had a significant cough. He feels improved. Telemetry reveals sinus rhythm with ventricular pacing in the 80s as per his baseline. Physical Exam Physical Exam: Temp Pulse Resp BP Pulse Ox 36.8 C 79 20 117/66 93 03/18/21 07:46 03/18/21 08:00 03/18/21 07:46 03/18/21 07:46 03/18/21 07:46 Constitutional: WD/WN, vitals as above Respiratory: no cough and not tachypneic Auscultation: + rales (Mild rales limited to the bases); no wheezes Cardiovascular: RRR, no murmur, no edema Gastrointestinal (Abdomen): normal bowel sounds, soft, nontender, no hepatosplenomegaly Neurologic: PERRL, EOMI, accommodation nl, no face palsy, no dysarthria Results & Data ([facility]) Vital Signs (Past 12 Hours) Vital Signs Temp Pulse Pulse Resp BP Pulse Ox 03/18/21 08:00 79 03/18/21 07:46 36.8 C 88 20 117/66 93 03/18/21 02:46 36.5 C 93 H 20 128/71 95 03/17/21 23:54 92 H 03/17/21 22:50 36.6 C 87 18 121/65 90 Laboratory Results CBC 03/18/21 Range/Units 05:59 WBC 3.98 L (4.8-10.8) K/uL RBC 3.47 L (4.7-6.1) M/uL Hgb 10.8 L (14.0-18.0) g/dL Hct 32.9 L (42-52) % Plt Count 254 (130-400) K/uL Neut # (Auto) 3.33 (1.4-6.5) K/uL Lymph # (Auto) 0.56 L (1.2-3.4) K/uL [place] # (Auto) 0.05 L (0.11-0.59) K/uL Eos # (Auto) 0.02 (0-0.5) K/uL Baso # (Auto) 0.01 (0-0.2) K/uL Comprehensive Metabolic Panel 03/18/21 Range/Units 05:59 Sodium 136 (136-145) mmol/L Potassium 3.7 (3.5-5.1) mmol/L Chloride 102 (98-107) mmol/L Carbon Dioxide 25 (21-32) mmol/L BUN 46 H (7-18) mg/dl Creatinine 2.54 H (0.6-1.4) mg/dl Glucose 144 H (70-99) mg/dl Calcium 8.7 (8.5-10.1) mg/dl Intake and Output 03/17/21 03/18/21 03/18/21 22:59 06:59 14:59 Intake Total 500 / 1480 300 / 1480 110 / 110 Output Total 1075 / 2525 350 / 2525 Balance -575 / -1045 -50 / -1045 110 / 110 Intake: IV 110 / 110 Iron Sucrose 200 mg In 0.9 % 110 / 110 Sodium Chloride 100 ml @ 220 mls/hr IV TODAY ONE Rx#: [id number] Oral 500 / 1370 300 / 1370 Output: Urine 1075 / 2525 350 / 2525 Other: Weight 66.8 kg Weight Measurement Method Standing Scale (1) CKD (chronic kidney disease) Chronic kidney disease stage: unspecified stage Qualified Code(s): N18.9 - Chronic kidney disease, unspecified
--- NOTE | 2021-03-18 13:06 | Hospitalist Progress Note ---
Date of Service March 18, 2021 Assessment & Plan (1) Acute on chronic heart failure with reduced ejection fraction and diastolic dysfunction: Ischemic Cardiomyopathy (LVEF 30% to 34%) s/p Bi-V AICD. - Continue Coreg, losartan, Imdur, hydralazine - Was given 4 mg of IV Bumex on the evening of 03/16 and had improved UOP - Closely monitor I&O's, body weights, and renal function. - Weight down to 67 kg today which appears to be near baseline weight. (2) COPD (chronic obstructive pulmonary disease): With chronic cough since having Covid. - Continue daily Umeclidinium/Vilanterol - Add on prn Duonebs - Continue albuterol HFA prn - Continue SoluMedrol -> Will switch to prednisone tomorrow. - Continue Guaifenesin DM PRN - Consider PULM consult given eosinophilia and significant cough, wheezing -> Improving today. (3) Ischemic cardiomyopathy: Ischemic Cardiomyopathy (LVEF 30% to 34%) s/p [employer] MRI SOCIAL PSYCHOLOGIST-D Bi-V AICD. - Followed by Kendra Reddy[facility]. - [employer] MRI SOCIAL PSYCHOLOGIST-D BiV AICD -- last interrogated 02/23/21. (4) Hypoxia: With acute on chronic respiratory failure with hypoxia-he has been on 2 L nasal cannula since discharge with Covid-19 pneumonia 2 months ago. (5) CAD (coronary artery disease): S/p PCI of Proximal to mid-LAD (3 drug-eluting stents 11/06/19, Chronic RCA Occlusion, 40% OM2 stenosis), no acute issues. - Continue aspirin/Plavix - Continue carvedilol, isosorbide, atorvastatin (6) Chronic kidney disease, stage V: Creatinine baseline is a 2.5. S/p RUE AV fistula, though not presently requiring HD. - Shoe Sprayer today stable at 2.5 in setting of IV diuresis - Followed by Dr. Handy. Appreciate nephrology consultation. (7) S/P ICD (internal cardiac defibrillator) procedure: [employer] MRI SOCIAL PSYCHOLOGIST-D BiV AICD -- last interrogated 02/23/21. Has RA lead, RV lead, and LBB lead. (8) Iron deficiency anemia: Fe studies this admission with low transferrin sat 14%. IV Venofer given x 1 this admission. - Continue home ferrous sulfate - Follow CBC - hemoglobin today is 10.8 (9) Hypertension: Blood pressures are stable at 120/60 today. - Continue meds as above (10) Hyperlipidemia: - Continue statin (11) Eosinophilia: Eosinophilia was quite high peripherally at 2650 on admission. Suddenly back to normal on 03/18. - Does have persistent cough since having Covid-question hypersensitivity pneumonitis. - Prior provider discussed with hematology who did not feel was likely related to leukemia. (12) DVT prophylaxis: Heparin 5,000 units SQ Q12h Admission and Anticipated Discharge Date Admission Date: March 15, 2021 Subjective Feels his breathing is "slightly" better today. Less wheezing today. Reports no fevers/chills, chest pain, abdominal pain, nausea, or vomiting. Physical Exam Constitutional: WD/WN, vitals as above Eyes: EOM intact bilaterally; no conjunctival abnormality ENMT: external ear and nose normal, oropharynx normal Neck: trachea midline, no thyromegaly normal visual inspection Respiratory: normal respiratory effort; no respiratory distress Auscultation: + wheezes (Mild) Cardiovascular: RRR, no murmur, no edema Gastrointestinal (Abdomen): Inspection/Auscultation: abdomen normal to inspection; abdomen not distended Musculoskeletal: no cyanosis or clubbing, extremities motor strength 5/5 Skin: no rashes, warm and dry Neurologic: moves all extremities and awake Psychiatric: Orientation: alert, oriented to person and cooperative Results & Data Results & Data ([facility]) Vital Signs (Past 12 Hours) Vital Signs Temp Pulse Pulse Resp BP Pulse Ox 03/18/21 11:43 36.5 C 92 H 20 119/63 93 03/18/21 08:00 79 03/18/21 07:46 36.8 C 88 20 117/66 93 03/18/21 02:46 36.5 C 93 H 20 128/71 95 PG Care Time/CCT Total # of Minutes Spent Total Time Spent with Patient: Total time spent is greater than 50% in coordination of care (as documented) at patient's floor/unit and/or counseling patient: Coding Level of Care Code 64226 Subseq Hosp Care Lvl 3 Diagnoses Acute on chronic heart failure with reduced ejection fraction and diastolic dysfunction I50.43 COPD (chronic obstructive pulmonary disease) J44.9 COPD type: unspecified COPD Ischemic cardiomyopathy I25.5 Hypoxia R09.02 CAD (coronary artery disease) I25.10 Coronary Disease-Associated Artery/Lesion type: [place] artery [place] vs. transplanted heart: [place] heart Associated angina: without angina Chronic kidney disease, stage V N18.5 S/P ICD (internal cardiac defibrillator) procedure Z95.810 Iron deficiency anemia D50.9 Iron deficiency anemia type: unspecified iron deficiency Hypertension I10 Hypertension type: essential hypertension Hyperlipidemia E78.5 Eosinophilia D72.10 DVT prophylaxis Z29.9 (1) COPD (chronic obstructive pulmonary disease) COPD type: unspecified COPD Qualified Code(s): J44.9 - Chronic obstructive pulmonary disease, unspecified (2) CAD (coronary artery disease) Coronary Disease-Associated Artery/Lesion type: [place] artery [place] vs. transplanted heart: [place] heart Associated angina: without angina Qualified Code(s): I25.10 - Atherosclerotic heart disease of [place] coronary artery without angina pectoris (3) Iron deficiency anemia Iron deficiency anemia type: unspecified iron deficiency Qualified Code(s): D50.9 - Iron deficiency anemia, unspecified (4) Hypertension Hypertension type: essential hypertension Qualified Code(s): I10 - Essential (primary) hypertension
[2021-03-18] MEDS: ALBUT/IPRATROP 3MG/0.5MG NEB 3 ML VIAL NEB PRN (16:38)
[2021-03-18] MEDS: ATORVASTATIN 40 MG TAB PO SCH (19:58)
[2021-03-19] MEDS: ALBUT/IPRATROP 3MG/0.5MG NEB 3 ML VIAL NEB PRN (04:01)
[2021-03-19 05:40] LABS: Basophils # (auto) 0.01 K/uL (0-0.2); Basophils % (auto) 0.1 %; Eosinophils # (auto) 0.01 K/uL (0-0.5); Eosinophils % (auto) 0.1 %; Hematocrit (blood only) 30.9 % (42-52); Hemoglobin 10.3 g/dL (14.0-18.0); Immature Granulocytes # (auto) 0.02 K/uL (0.00-0.02); Immature Granulocytes % (auto) 0.2 %; Lymphocytes # (auto) 0.57 K/uL (1.2-3.4); Lymphocytes % (auto) 5.6 %; Mean Corpuscular Hemoglobin 31.5 pg (25-34); Mean Corpuscular Hgb Conc 33.3 g/dL (32-36); Mean Corpuscular Volume 94.5 fL (80-100); Mean Platelet Volume 10.1 fL (7.4-10.4); Monocytes # (auto) 0.41 K/uL (0.11-0.59); Platelet Count 266 K/uL (130-400); RDW Coefficient of Variation 15.1 % (11.5-14.5); RDW Standard Deviation 51.5 fL (36.4-46.3); Red Blood Count 3.27 M/uL (4.7-6.1); White Blood Count 10.22 K/uL (4.8-10.8)
[2021-03-19 06:13] LABS: Albumin Level 2.8 gm/dl (3.4-5.0); Calcium 9.2 mg/dl (8.5-10.1); Creatinine Clr Calc Pharmacy 27.4 ml/min; Est GFR (African American) 28.8 ml/min; Est GFR (Non-African American) 24.9 ml/min; Magnesium 2.2 mg/dl (1.8-2.4); Phosphorus 2.8 mg/dl (2.5-4.9); Potassium 3.6 mmol/L (3.5-5.1)
[2021-03-19] MEDS: methylPREDNISolone 60 MG in SYRINGE 0 ML IV SCH (08:41)
[2021-03-19] MEDS: HEPARIN SOD 5,000 UNIT/0.5 ML VIAL SQ SCH ×2 (08:41→20:11)
[2021-03-19] MEDS: LOSARTAN POTASSIUM 25 MG TAB PO SCH (08:41)
[2021-03-19] MEDS: carvediloL 6.25 MG TAB PO SCH ×2 (08:41→20:19)
[2021-03-19] MEDS: ALBUTEROL HFA 8 GM INHALER INH PRN ×2 (08:41→22:41)
[2021-03-19] MEDS: CHOLECALCIFEROL 1,000 UNITS 25 MCG TAB PO SCH (08:41)
[2021-03-19] MEDS: BUMETANIDE 4 MG in SYRINGE 0 ML IV SCH ×2 (08:41→17:11)
[2021-03-19] MEDS: hydrALAZINE TAB 50 MG TAB PO SCH ×3 (08:41→20:18)
[2021-03-19] MEDS: CEROVITE ADV FORMULA TAB PO SCH (08:41)
[2021-03-19] MEDS: PANTOprazole 40 MG TAB PO SCH (08:41)
[2021-03-19] MEDS: CLOPIDOGREL BISULFATE 75 MG TAB PO SCH (08:41)
[2021-03-19] MEDS: ISOSORBIDE MONO EXTENDED REL 30 MG TABCR PO SCH ×2 (08:41→20:19)
[2021-03-19] MEDS: UMECLIDINIUM/VILANTEROL 62.5/25MCG 7 PUFFS/INHALER INH SCH (08:41)
[2021-03-19] MEDS: ASPIRIN 81 MG ECTAB PO SCH (08:41)
--- NOTE | 2021-03-19 08:57 | Cardiology Progress Note ---
Date of Service March 19, 2021 Assessment & Plan (1) Acute on chronic heart failure with reduced ejection fraction and diastolic dysfunction: Continue Bumex 4 mg IV twice daily. Monitor daily weight, fluid balance, GFR, and electrolytes. Renal function remains stable. (2) Chronic kidney disease, stage 4 (severe): Continue IV diuresis. Daily BMP. (3) Hyponatremia: Monitor (4) Anemia in chronic kidney disease: Hemoglobin stable. Admission and Anticipated Discharge Date Admission Date: March 15, 2021 Subjective Patient seen and examined at the bedside. Fluid balance negative approximately 640 cc. Creatinine remains stable at 2.6. Tolerating IV Bumex 4 mg twice daily. Denies chest pain or shortness of breath. No palpitations, lightheadedness, or dizziness. Telemetry reveals atrial sensed, ventricular paced rhythm. No sustained dysrhythmias. Patient voices concern regarding mild weight gain. States "I do not want to go home until I am right". Review of Systems Review of Systems: All systems reviewed & are unremarkable except as noted in Subjective Physical Exam Constitutional: well developed and well nourished; no acute distress Respiratory: Auscultation: + crackles (Left base) and + rales; no rhonchi and no wheezes Cardiovascular: Rate/Rhythm: regular rate and regular rhythm Heart Sounds: normal S1, normal S2 and + murmur (2/6 systolic murmur heard best at the base.) Vessels: radial pulses present; no JVD and no carotid bruit Extremities: no edema Gastrointestinal (Abdomen): Inspection/Auscultation: abdomen normal to inspection and normal bowel sounds; abdomen not distended Percussion/Palpation: abdomen nontender and no guarding Neurologic: CN's II-XI intact bilaterally and moves all extremities; no focal motor deficits Motor/Sensory: no tremor Psychiatric: A+Ox3, euthymic affect Results & Data ([facility]) Vital Signs (Past 12 Hours) Vital Signs Temp Pulse Pulse Resp BP Pulse Ox 03/19/21 07:44 36.4 C L 94 H 21 111/64 97 03/19/21 07:02 89 03/19/21 04:01 89 22 92 03/19/21 03:06 36.4 C L 91 H 18 100/61 94 03/19/21 00:00 95 H 03/18/21 22:52 36.7 C 98 H 20 124/70 98
--- NOTE | 2021-03-19 08:59 | Nephrology Progress Note ---
Date of Service March 19, 2021 Assessment & Plan (1) Acute on chronic heart failure with reduced ejection fraction and diastolic dysfunction: * Mild improvement * Only 600 cc UO overnight. Pulmonary exam w/ rales * Continue Bumex 4 mg IV twice daily today * Will provide one dose Metolazone 2.5 mg po today * Document strict I/O's and daily weight * Recheck CXR in am (2) CKD (chronic kidney disease): * Nonoliguric, stable kidney function. Electrolytes acceptable. No acute indication for dialysis at this time (3) Iron deficiency anemia: * Iron saturation 14% w/ ferritin 107. Will provide 1g IV Venofer * Patient c/o dark stool. Will order FOBT Admission and Anticipated Discharge Date Admission Date: March 15, 2021 Subjective Mr. Fall was seen & examined in his hospital room this morning. He reports that his breathing is mildly improved and he has been weaned down to 2 L O2 via NC. He would like to taper off O2 completely if possible. Mr. Fall c/o weakness. He was only able to ambulate a short distance with assistance yesterday. He now reports dark stool. Review of Systems Constitutional: + weakness; no fever Eyes: no problem reported Ear, Nose, Mouth, Throat: no problem reported Respiratory: + cough and + dyspnea Cardiovascular: no chest pain, no palpitations and no edema Gastrointestinal: no abdominal pain, no nausea and no diarrhea/loose stools Genitourinary: no dysuria, no urinary hesitancy and no hematuria Musculoskeletal: no back pain Integumentary: no rash Neurologic: no falls, no dizziness and no confusion Physical Exam Constitutional: not in distress Eyes: PERRL, conjunctivae normal, anicteric sclerae ENMT: external ear and nose normal, oropharynx normal Neck: trachea midline, no thyromegaly Respiratory: normal respiratory effort Auscultation: + rales Cardiovascular: RRR, no murmur, no edema Gastrointestinal (Abdomen): normal bowel sounds, soft, nontender, no hepatosplenomegaly Musculoskeletal: Extremities: no cyanosis Skin: no rashes, warm and dry Neurologic: awake; not confused Results & Data ([facility]) Vital Signs (Past 12 Hours) Vital Signs Temp Pulse Pulse Resp BP Pulse Ox 03/19/21 07:44 36.4 C L 94 H 21 111/64 97 03/19/21 07:02 89 03/19/21 04:01 89 22 92 03/19/21 03:06 36.4 C L 91 H 18 100/61 94 03/19/21 00:00 95 H 03/18/21 22:52 36.7 C 98 H 20 124/70 98 Laboratory Tests 03/19/21 03/19/21 05:11 05:11 WBC 10.22 Hgb 10.3 L Plt Count 266 Sodium 135 L Potassium 3.6 Chloride 102 Carbon Dioxide 25 BUN 55 H Creatinine 2.62 H Glucose 132 H Calcium 9.2 Phosphorus 2.8 Magnesium 2.2 Albumin 2.8 L PG Care Time/CCT Total # of Minutes Spent Total Time Spent with Patient: Total time spent is greater than 50% in coordination of care (as documented) at patient's floor/unit and/or counseling patient: Coding Level of Care Code 96519 Subseq Hosp Care Lvl 3 Diagnoses Acute on chronic heart failure with reduced ejection fraction and diastolic dysfunction I50.43 CKD (chronic kidney disease) N18.9 Chronic kidney disease stage: unspecified stage Iron deficiency anemia D50.9 Iron deficiency anemia type: unspecified iron deficiency (1) CKD (chronic kidney disease) Chronic kidney disease stage: unspecified stage Qualified Code(s): N18.9 - Chronic kidney disease, unspecified (2) Iron deficiency anemia Iron deficiency anemia type: unspecified iron deficiency Qualified Code(s): D50.9 - Iron deficiency anemia, unspecified
[2021-03-19] MEDS ORDERED: IRON SUCROSE 200 MG in 0.9 % SODIUM CHLORIDE 100 ML IV SCH (09:00)
[2021-03-19] MEDS ORDERED: POTASSIUM CHLORIDE CRTAB 20 MEQ TABCR PO ONE ×2 (09:08→11:30)
[2021-03-19] MEDS ORDERED: metOLazone 2.5 MG TABLET PO ONE (09:08)
--- NOTE | 2021-03-19 16:18 | Hospitalist Progress Note ---
Date of Service March 19, 2021 Assessment & Plan (1) Acute on chronic heart failure with reduced ejection fraction and diastolic dysfunction: Ischemic Cardiomyopathy (LVEF 30% to 34%) s/p Bi-V AICD. - Continue Coreg, losartan, Imdur, hydralazine - Was given 4 mg of IV Bumex on the evening of 03/16 and had improved UOP - Closely monitor I&O's, body weights, and renal function. - Weight down to 67 kg today which appears to be near baseline weight, though UOP was only mildly net negative. Given metolazone by nephrology to encourage output. (2) COPD (chronic obstructive pulmonary disease): With chronic cough since having Covid. - Continue daily Umeclidinium/Vilanterol - Add on prn Duonebs - Continue albuterol HFA prn - Continue SoluMedrol -> Will switch to prednisone tomorrow. - Continue Guaifenesin DM PRN - Consider PULM consult given eosinophilia and significant cough, wheezing -> Eosinophilia resolved; monitor. (3) Ischemic cardiomyopathy: Ischemic Cardiomyopathy (LVEF 30% to 34%) s/p [employer] MRI SURVEILLANCE MANAGER-D Bi-V AICD. - Followed by Kendra Reddy's [facility]. - [employer] MRI SURVEILLANCE MANAGER-D BiV AICD -- last interrogated 02/23/21. (4) Hypoxia: With acute on chronic respiratory failure with hypoxia-he has been on 2 L nasal cannula since discharge with Covid-19 pneumonia 2 months ago. (5) CAD (coronary artery disease): S/p PCI of Proximal to mid-LAD (3 drug-eluting stents 11/06/19, Chronic RCA Occlusion, 40% OM2 stenosis), no acute issues. - Continue aspirin/Plavix - Continue carvedilol, isosorbide, atorvastatin (6) Chronic kidney disease, stage V: Creatinine baseline is a 2.5. S/p RUE AV fistula, though not presently requiring HD. - Scrum Coach today stable at 2.5 in setting of IV diuresis - Followed by Dr. Handy. Appreciate nephrology consultation. (7) S/P ICD (internal cardiac defibrillator) procedure: [employer] MRI SURVEILLANCE MANAGER-D BiV AICD -- last interrogated 02/23/21. Has RA lead, RV lead, and LBB lead. (8) Iron deficiency anemia: Fe studies this admission with low transferrin sat 14%. IV Venofer given x 2 this admission; most recently on 03/19. - Continue home ferrous sulfate - Follow CBC - hemoglobin lower today at 10.3 (9) Hypertension: Blood pressures are stable at 120/60 today. - Continue meds as above (10) Hyperlipidemia: - Continue statin (11) Eosinophilia: Eosinophilia was quite high peripherally at 2650 on admission. Suddenly back to normal on 03/18. - Does have persistent cough since having Covid-question hypersensitivity pneumonitis. - Prior provider discussed with hematology who did not feel was likely related to leukemia. (12) DVT prophylaxis: Heparin 5,000 units SQ Q12h Admission and Anticipated Discharge Date Admission Date: March 15, 2021 Subjective Not much change today with breathing. Still with cough and shortness of breath. Reports no fevers/chills, chest pain, abdominal pain, nausea, or vomiting. Physical Exam Constitutional: WD/WN, vitals as above Eyes: EOM intact bilaterally; no conjunctival abnormality ENMT: external ear and nose normal, oropharynx normal Neck: trachea midline, no thyromegaly normal visual inspection Respiratory: normal respiratory effort; no respiratory distress Auscultation: no wheezes Cardiovascular: RRR, no murmur, no edema Gastrointestinal (Abdomen): Inspection/Auscultation: abdomen normal to inspection; abdomen not distended Musculoskeletal: no cyanosis or clubbing, extremities motor strength 5/5 Skin: no rashes, warm and dry Neurologic: moves all extremities and awake Psychiatric: Orientation: alert, oriented to person and cooperative Results & Data Results & Data ([facility] [place]) Vital Signs (Past 12 Hours) Vital Signs Temp Pulse Pulse Resp BP Pulse Ox 03/19/21 15:42 36.6 C 94 H 19 118/62 95 03/19/21 14:47 89 03/19/21 13:20 36.3 C L 96 H 20 100/53 L 90 03/19/21 07:44 36.4 C L 94 H 21 111/64 97 03/19/21 07:02 89 PG Care Time/CCT Total # of Minutes Spent Total Time Spent with Patient: Total time spent is greater than 50% in coordination of care (as documented) at patient's floor/unit and/or counseling patient: Coding Level of Care Code 75555 Subseq Hosp Care Lvl 2 Diagnoses Acute on chronic heart failure with reduced ejection fraction and diastolic dysfunction I50.43 COPD (chronic obstructive pulmonary disease) J44.9 COPD type: unspecified COPD Ischemic cardiomyopathy I25.5 Hypoxia R09.02 CAD (coronary artery disease) I25.10 Coronary Disease-Associated Artery/Lesion type: [place] artery [place] vs. transplanted heart: [place] heart Associated angina: without angina Chronic kidney disease, stage V N18.5 S/P ICD (internal cardiac defibrillator) procedure Z95.810 Iron deficiency anemia D50.9 Iron deficiency anemia type: unspecified iron deficiency Hypertension I10 Hypertension type: essential hypertension Hyperlipidemia E78.5 Eosinophilia D72.10 DVT prophylaxis Z29.9 (1) COPD (chronic obstructive pulmonary disease) COPD type: unspecified COPD Qualified Code(s): J44.9 - Chronic obstructive pulmonary disease, unspecified (2) CAD (coronary artery disease) Coronary Disease-Associated Artery/Lesion type: [place] artery [place] vs. transplanted heart: [place] heart Associated angina: without angina Qualified Code(s): I25.10 - Atherosclerotic heart disease of [place] coronary artery without angina pectoris (3) Iron deficiency anemia Iron deficiency anemia type: unspecified iron deficiency Qualified Code(s): D50.9 - Iron deficiency anemia, unspecified (4) Hypertension Hypertension type: essential hypertension Qualified Code(s): I10 - Essential (primary) hypertension
[2021-03-19] MEDS: ATORVASTATIN 40 MG TAB PO SCH (20:18)
[2021-03-20 05:47] LABS: Hematocrit (blood only) 31.5 % (42-52); Hemoglobin 10.5 g/dL (14.0-18.0); Mean Corpuscular Hemoglobin 32.1 pg (25-34); Mean Corpuscular Hgb Conc 33.3 g/dL (32-36); Mean Corpuscular Volume 96.3 fL (80-100); Mean Platelet Volume 10.1 fL (7.4-10.4); Platelet Count 285 K/uL (130-400); RDW Coefficient of Variation 15.4 % (11.5-14.5); RDW Standard Deviation 53.8 fL (36.4-46.3); Red Blood Count 3.27 M/uL (4.7-6.1); White Blood Count 10.45 K/uL (4.8-10.8)
[2021-03-20 06:14] LABS: BUN Creatinine Ratio 26.6 (10-20); Calcium 8.5 mg/dl (8.5-10.1); Creatinine Clr Calc Pharmacy 27.6 ml/min; Est GFR (African American) 29.2 ml/min; Est GFR (Non-African American) 25.2 ml/min; Potassium 3.4 mmol/L (3.5-5.1)
--- NOTE | 2021-03-20 07:08 | XRay Report ---
XR chest 1V portable CLINICAL HISTORY: CHF COMPARISON STUDY: Chest CT T August 10, 2020. Chest radiograph March 14, 2021 FINDINGS: Left subclavian pacer/AICD is in place. Cardiomegaly is noted. There are small bilateral pl eural effusions. There is no pneumothorax. Interstitial thickening represents pulmonary edema. Right lung airspace opacities have progressed. IMPRESSION: 1. Persistent pulmonary edema and bilateral pleural effusions. 2. Increase in right lung airspace opacities which could reflect alveolar edema or superimposed pneum onia. Radiographic follow-up to ensure resolution is recommended. ACT 112: Negative or not required by law. Electronically signed by: aNldo Bermeo M.D. 03/20/2021 7:06 AM
[2021-03-20] MEDS: ISOSORBIDE MONO EXTENDED REL 30 MG TABCR PO SCH ×2 (08:42→20:01)
[2021-03-20] MEDS: hydrALAZINE TAB 50 MG TAB PO SCH ×3 (08:42→20:01)
[2021-03-20] MEDS: CHOLECALCIFEROL 1,000 UNITS 25 MCG TAB PO SCH (08:42)
[2021-03-20] MEDS: CEROVITE ADV FORMULA TAB PO SCH (08:42)
[2021-03-20] MEDS: CLOPIDOGREL BISULFATE 75 MG TAB PO SCH (08:42)
[2021-03-20] MEDS: BUMETANIDE 4 MG in SYRINGE 0 ML IV SCH ×2 (08:42→17:34)
[2021-03-20] MEDS: UMECLIDINIUM/VILANTEROL 62.5/25MCG 7 PUFFS/INHALER INH SCH (08:42)
[2021-03-20] MEDS: IRON SUCROSE 200 MG in 0.9 % SODIUM CHLORIDE 100 ML IV SCH (08:42)
[2021-03-20] MEDS: LOSARTAN POTASSIUM 25 MG TAB PO SCH (08:42)
[2021-03-20] MEDS: carvediloL 6.25 MG TAB PO SCH ×2 (08:42→20:01)
[2021-03-20] MEDS: ASPIRIN 81 MG ECTAB PO SCH (08:42)
[2021-03-20] MEDS: PANTOprazole 40 MG TAB PO SCH (08:42)
[2021-03-20] MEDS: HEPARIN SOD 5,000 UNIT/0.5 ML VIAL SQ SCH ×2 (08:43→19:43)
[2021-03-20] MEDS: ALBUTEROL HFA 8 GM INHALER INH PRN ×2 (08:49→20:01)
[2021-03-20] MEDS ORDERED: predniSONE 20 MG TAB PO SCH (09:00)
--- NOTE | 2021-03-20 09:05 | Nephrology Progress Note ---
Date of Service March 20, 2021 Assessment & Plan (1) Acute on chronic heart failure with reduced ejection fraction and diastolic dysfunction: * Mild improvement * ~1000 cc UO overnight. Pulmonary exam w/ rales * Continue Bumex 4 mg IV twice daily today * CXR show vascular congestion w/ increasing peripheral infiltrates - CHF vs infection * Will redose Metolazone this am * Document strict I/O's and daily weight * Obtain follow up CXR in am (2) CKD (chronic kidney disease): * Nonoliguric, stable kidney function. Electrolytes acceptable. No acute indication for dialysis at this time (3) Iron deficiency anemia: * Iron saturation 14% w/ ferritin 107. Will provide 1g IV Venofer * Patient c/o dark stool. Will order FOBT Admission and Anticipated Discharge Date Admission Date: March 15, 2021 Subjective Mr. Fall was seen & examined in his hospital room this morning. He reports brisk UO yesterday following addition of metolazone to bumetanide. Net 1L UO overnight. Mr. Fall c/o persistent nonproductive cough and DAVIS. He was not out of bed to ambulate yesterday Review of Systems Constitutional: + weakness; no fever Eyes: no problem reported Ear, Nose, Mouth, Throat: no problem reported Respiratory: + cough and + dyspnea Cardiovascular: no chest pain, no palpitations and no edema Gastrointestinal: no abdominal pain, no nausea and no diarrhea/loose stools Genitourinary: no dysuria, no urinary hesitancy and no hematuria Musculoskeletal: no back pain Integumentary: no rash Neurologic: no falls, no dizziness and no confusion Physical Exam Constitutional: not in distress Eyes: PERRL, conjunctivae normal, anicteric sclerae ENMT: external ear and nose normal, oropharynx normal Neck: trachea midline, no thyromegaly Respiratory: normal respiratory effort Auscultation: + rales Cardiovascular: RRR, no murmur, no edema Gastrointestinal (Abdomen): normal bowel sounds, soft, nontender, no hepatosplenomegaly Musculoskeletal: Extremities: no cyanosis Skin: no rashes, warm and dry Neurologic: awake; not confused Results & Data ([facility]) Vital Signs (Past 12 Hours) Vital Signs Temp Pulse Pulse Resp BP Pulse Ox 03/20/21 08:01 36.4 C L 79 19 113/61 98 03/20/21 07:21 73 03/20/21 03:32 36.7 C 86 18 113/66 94 03/20/21 00:33 83 03/19/21 22:40 36.6 C 88 18 119/67 92 Laboratory Tests 03/18/21 03/20/21 03/20/21 19:30 05:23 05:23 WBC 10.45 Hgb 10.5 L Hct 31.5 L Plt Count 285 Sodium 136 Potassium 3.4 L Chloride 102 Carbon Dioxide 26 BUN 69 H Creatinine 2.59 H Glucose 99 Stool Comments Pending PG Care Time/CCT Total # of Minutes Spent Total Time Spent with Patient: Total time spent is greater than 50% in coordination of care (as documented) at patient's floor/unit and/or counseling patient: Coding Level of Care Code 64463 Subseq Hosp Care Lvl 3 Diagnoses Acute on chronic heart failure with reduced ejection fraction and diastolic dysfunction I50.43 CKD (chronic kidney disease) N18.9 Chronic kidney disease stage: unspecified stage Iron deficiency anemia D50.9 Iron deficiency anemia type: unspecified iron deficiency (1) CKD (chronic kidney disease) Chronic kidney disease stage: unspecified stage Qualified Code(s): N18.9 - Chronic kidney disease, unspecified (2) Iron deficiency anemia Iron deficiency anemia type: unspecified iron deficiency Qualified Code(s): D50.9 - Iron deficiency anemia, unspecified
[2021-03-20] MEDS ORDERED: metOLazone 2.5 MG TABLET PO ONE (09:16)
[2021-03-20] MEDS ORDERED: POTASSIUM CHLORIDE CRTAB 20 MEQ TABCR PO ONE (09:17)
--- NOTE | 2021-03-20 11:03 | Cardiology Progress Note ---
Date of Service March 20, 2021 Assessment & Plan (1) Acute on chronic heart failure with reduced ejection fraction and diastolic dysfunction: Continue Bumex 4 mg IV twice daily. Monitor daily weight, fluid balance, GFR, and electrolytes. Renal function remains stable. Continue other evidence- based heart failure therapies including carvedilol, losartan, isosorbide, and hydralazine as previously ordered. (2) Chronic kidney disease, stage 4 (severe): Continue IV diuresis. Daily BMP. Nephrology following. (3) Hyponatremia: Serum sodium within normal limits today. Mild hypokalemia noted. Supplement as indicated. Continue to monitor. Nephrology input appreciated. (4) Anemia in chronic kidney disease: Hemoglobin stable. Admission and Anticipated Discharge Date Admission Date: March 15, 2021 Subjective Patient seen and examined the bedside. Feeling better from a cardiovascular perspective. Fluid balance negative approximately 1 L. Renal function remained stable. No orthopnea or PND. Notes mild cough without sputum production. No significant edema. Offers no new concerns/complaints. Telemetry reveals biventricular pacing. Review of Systems Review of Systems: All systems reviewed & are unremarkable except as noted in Subjective Physical Exam Constitutional: well developed and well nourished; no acute distress Respiratory: Auscultation: + crackles (Left base) and + rales; no rhonchi and no wheezes Cardiovascular: Rate/Rhythm: regular rate and regular rhythm Heart Sounds: normal S1, normal S2 and + murmur (2/6 systolic murmur heard best at the base.) Vessels: radial pulses present; no JVD and no carotid bruit Extremities: no edema Gastrointestinal (Abdomen): Inspection/Auscultation: abdomen normal to inspection and normal bowel sounds; abdomen not distended Percussion/Palpation: abdomen nontender and no guarding Neurologic: CN's II-XI intact bilaterally and moves all extremities; no focal motor deficits Motor/Sensory: no tremor Psychiatric: A+Ox3, euthymic affect Results & Data ([facility]) Vital Signs (Past 12 Hours) Vital Signs Temp Pulse Pulse Resp BP Pulse Ox 03/20/21 08:01 36.4 C L 79 19 113/61 98 03/20/21 07:21 73 03/20/21 03:32 36.7 C 86 18 113/66 94 03/20/21 00:33 83
--- NOTE | 2021-03-20 13:36 | Hospitalist Progress Note ---
Date of Service March 20, 2021 Assessment & Plan (1) Acute on chronic heart failure with reduced ejection fraction and diastolic dysfunction: Ischemic Cardiomyopathy (LVEF 30% to 34%) s/p Bi-V AICD. - Continue Coreg, losartan, Imdur, hydralazine - Was given 4 mg of IV Bumex on the evening of 03/16 and had improved UOP - Closely monitor I&O's, body weights, and renal function. - Weight down to 67 kg today which appears to be near baseline weight, though CXR today shows pneumonia vs pulmonary edema (personally reviewed by me). Metolazone per nephrology. Will get CT chest, BNP, procal to help differentiate. (2) COPD (chronic obstructive pulmonary disease): With chronic cough since having Covid. - Continue daily Umeclidinium/Vilanterol - Add on prn Duonebs - Continue albuterol HFA prn - Continue Guaifenesin DM PRN - Will drop prednisone tomorrow to help reduce BUN (discussed with nephrology today). (3) Ischemic cardiomyopathy: Ischemic Cardiomyopathy (LVEF 30% to 34%) s/p Medtronic Claria MRI TOOTH CUTTER CONTACT WHEEL-D Bi-V AICD. - Followed by Kendra Reddy[facility]. - Medtronic Claria MRI TOOTH CUTTER CONTACT WHEEL-D BiV AICD -- last interrogated 02/23/21. (4) Hypoxia: With acute on chronic respiratory failure with hypoxia-he has been on 2 L nasal cannula since discharge with Covid-19 pneumonia 2 months ago. (5) CAD (coronary artery disease): S/p PCI of Proximal to mid-LAD (3 drug-eluting stents 11/06/19, Chronic RCA Occlusion, 40% OM2 stenosis), no acute issues. - Continue aspirin/Plavix - Continue carvedilol, isosorbide, atorvastatin (6) Chronic kidney disease, stage V: Creatinine baseline is a 2.5. S/p RUE AV fistula, though not presently requiring HD. - Size Marker today stable at 2.5 in setting of IV diuresis - Followed by Dr. Handy. Appreciate nephrology consultation. (7) S/P ICD (internal cardiac defibrillator) procedure: Medtronic Claria MRI TOOTH CUTTER CONTACT WHEEL-D BiV AICD -- last interrogated 02/23/21. Has RA lead, RV lead, and LBB lead. (8) Iron deficiency anemia: Fe studies this admission with low transferrin sat 14%. IV Venofer given x 2 this admission; most recently on 03/19. - Continue home ferrous sulfate - Follow CBC - hemoglobin stable today at 10.5 (9) Hypertension: Blood pressures are stable at 105/60 today. - Continue meds as above (10) Hyperlipidemia: - Continue statin (11) Eosinophilia: Eosinophilia was quite high peripherally at 2650 on admission. Suddenly back to normal on 03/18. - Does have persistent cough since having Covid-question hypersensitivity pneumonitis. - Prior provider discussed with hematology who did not feel was likely related to leukemia. (12) DVT prophylaxis: Heparin 5,000 units SQ Q12h Admission and Anticipated Discharge Date Admission Date: March 15, 2021 Subjective Feels his breathing is better today. No major concerns otherwise. Does want to walk around more; feels he is sedentary in bed. Reports no fevers/chills, chest pain, abdominal pain, nausea, or vomiting. Physical Exam Constitutional: WD/WN, vitals as above Eyes: EOM intact bilaterally; no conjunctival abnormality ENMT: external ear and nose normal, oropharynx normal Neck: trachea midline, no thyromegaly normal visual inspection Respiratory: normal respiratory effort; no respiratory distress Auscultation: no wheezes Cardiovascular: RRR, no murmur, no edema Gastrointestinal (Abdomen): Inspection/Auscultation: abdomen normal to inspection; abdomen not distended Musculoskeletal: no cyanosis or clubbing, extremities motor strength 5/5 Skin: no rashes, warm and dry Neurologic: moves all extremities and awake Psychiatric: Orientation: alert, oriented to person and cooperative Results & Data Results & Data ([facility]) Vital Signs (Past 12 Hours) Vital Signs Temp Pulse Pulse Resp BP Pulse Ox 03/20/21 12:07 36.3 C L 79 20 106/54 L 96 03/20/21 08:01 36.4 C L 79 19 113/61 98 03/20/21 07:21 73 03/20/21 03:32 36.7 C 86 18 113/66 94 PG Care Time/CCT Total # of Minutes Spent Total Time Spent with Patient: Total time spent is greater than 50% in coordination of care (as documented) at patient's floor/unit and/or counseling patient: Coding Level of Care Code 28617 Subseq Hosp Care Lvl 3 Diagnoses Acute on chronic heart failure with reduced ejection fraction and diastolic dysfunction I50.43 COPD (chronic obstructive pulmonary disease) J44.9 COPD type: unspecified COPD Ischemic cardiomyopathy I25.5 Hypoxia R09.02 CAD (coronary artery disease) I25.10 Coronary Disease-Associated Artery/Lesion type: [place] artery [place] vs. transplanted heart: [place] heart Associated angina: without angina Chronic kidney disease, stage V N18.5 S/P ICD (internal cardiac defibrillator) procedure Z95.810 Iron deficiency anemia D50.9 Iron deficiency anemia type: unspecified iron deficiency Hypertension I10 Hypertension type: essential hypertension Hyperlipidemia E78.5 Eosinophilia D72.10 DVT prophylaxis Z29.9 (1) COPD (chronic obstructive pulmonary disease) COPD type: unspecified COPD Qualified Code(s): J44.9 - Chronic obstructive pulmonary disease, unspecified (2) CAD (coronary artery disease) Coronary Disease-Associated Artery/Lesion type: [place] artery [place] vs. transplanted heart: [place] heart Associated angina: without angina Qualified Code(s): I25.10 - Atherosclerotic heart disease of [place] coronary artery without angina pectoris (3) Iron deficiency anemia Iron deficiency anemia type: unspecified iron deficiency Qualified Code(s): D50.9 - Iron deficiency anemia, unspecified (4) Hypertension Hypertension type: essential hypertension Qualified Code(s): I10 - Essential (primary) hypertension
--- NOTE | 2021-03-20 14:20 | CT Scan Report ---
CT OF THE CHEST WITHOUT IV CONTRAST CLINICAL HISTORY: Hypoxemia; pneumonia vs. edema COMPARISON STUDY: Chest CT August 10, 2020. Chest radiograph performed earlier today. CT DOSE: 234.22 mGy.cm TECHNIQUE: Axial images of the chest were obtained without IV contrast. Images were reviewed in the axial, sagittal, and coronal planes. IV contrast was not administered for this examination. Automat ed exposure control was utilized for the study. A dose lowering technique was utilized adhering to t he principles of ALARA. FINDINGS: A left subclavian pacer/AICD is in place. Note is made of moderate cardiomegaly. There is no pericardial effusion. Extensive coronary artery calcification is noted. Note is made of several mi ldly enlarged mediastinal and right hilar lymph nodes. Index right suprahilar lymph node on image 108 measures 1.2 cm in short axis diameter. There is no pneumothorax. [id number] bilateral pleura l effusions are present. Emphysema is noted. Interlobular septal thickening is present. Several irreg ular nodular opacities within the right upper lobe are noted, including a 1.1 cm nodular opacity on i mage 50 of 286. Bilateral lower lobe opacities favor atelectasis. Mild left upper lobe airspace opaci ties are present. Central airways are patent. No acute fracture or suspicious lesion is identified wi thin visualized skeletal structures. Lobulated appearance of the spleen is unchanged. IMPRESSION: 1. Small to moderate bilateral pleural effusions with interstitial pulmonary edema. Associated bilate ral lower lobe opacities favor atelectasis. 2. A few nodular right upper lobe airspace opacities which favor a superimposed infectious process. A 1.1 cm right upper lobe nodular opacity is likely infectious however a follow up chest CT in 3 month s to ensure resolution is recommended. 3. Emphysema. 4. Cardiomegaly and extensive coronary artery calcification. 5. Mildly enlarged mediastinal and right hilar lymph nodes which are probably reactive. These can be assessed on follow-up chest CT. ACT 112: Negative or not required by law. Electronically signed by: Naldo Bermeo M.D. 03/20/2021 2:19 PM
[2021-03-20] MEDS: ATORVASTATIN 40 MG TAB PO SCH (20:01)
[2021-03-20] MEDS: ALBUT/IPRATROP 3MG/0.5MG NEB 3 ML VIAL NEB PRN (22:36)
[2021-03-21 06:11] LABS: Hematocrit (blood only) 33.3 % (42-52); Mean Corpuscular Hemoglobin 31.8 pg (25-34); Mean Corpuscular Volume 96.2 fL (80-100); Mean Platelet Volume 10.1 fL (7.4-10.4); Platelet Count 309 K/uL (130-400); RDW Coefficient of Variation 15.2 % (11.5-14.5); RDW Standard Deviation 52.6 fL (36.4-46.3); Red Blood Count 3.46 M/uL (4.7-6.1); White Blood Count 9.09 K/uL (4.8-10.8)
[2021-03-21 06:49] LABS: BUN Creatinine Ratio 26.1 (10-20); Calcium 8.6 mg/dl (8.5-10.1); Creatinine Clr Calc Pharmacy 25.4 ml/min; Est GFR (African American) 26.6 ml/min; Potassium 3.5 mmol/L (3.5-5.1)
--- NOTE | 2021-03-21 07:29 | XRay Report ---
XR chest 1V portable CLINICAL HISTORY: CHF COMPARISON STUDY: March 20, 2021 FINDINGS: No pneumothorax. Mild interval improvement of bilateral pleural effusion which now appear small. Possibly loculated pl eural effusion is seen at the lower left lateral hemithorax. Small atelectasis are seen in bilateral bases. There is mild interval improvement of diffuse reticula r opacities seen bilaterally. Peribronchial cuffing is again visualized. Cardiomediastinal silhouette are within upper limits of normal and unchanged since prior. Aorta is ca lcified. Mild interval improvement of pulmonary vascular congestion.. Osseous structures: Degenerative changes of the right acromioclavicular joint. Stable position of left-sided triple lead AICD with battery pack partially obscuring left lung parenc hyma. IMPRESSION: 1. Interval improvement of CHF pattern as detailed above. ACT 112: Positive. There are findings on this exam that require communication between the performing entity and the patient following Patient Test Result Information Act ([place] Act 112) guidelines. Electronically signed by: Char Tavares DO 03/21/2021 7:27 AM
[2021-03-21] MEDS: BUMETANIDE 4 MG in SYRINGE 0 ML IV SCH (08:30)
[2021-03-21] MEDS: IRON SUCROSE 200 MG in 0.9 % SODIUM CHLORIDE 100 ML IV SCH (08:30)
[2021-03-21] MEDS: CEROVITE ADV FORMULA TAB PO SCH (08:31)
[2021-03-21] MEDS: CLOPIDOGREL BISULFATE 75 MG TAB PO SCH (08:31)
[2021-03-21] MEDS: predniSONE 10 MG TABLET PO SCH (08:31)
[2021-03-21] MEDS: PANTOprazole 40 MG TAB PO SCH (08:31)
[2021-03-21] MEDS: UMECLIDINIUM/VILANTEROL 62.5/25MCG 7 PUFFS/INHALER INH SCH (08:31)
[2021-03-21] MEDS: ALBUTEROL HFA 8 GM INHALER INH PRN ×2 (08:31→22:12)
[2021-03-21] MEDS: carvediloL 6.25 MG TAB PO SCH ×2 (08:32→20:26)
[2021-03-21] MEDS: hydrALAZINE TAB 50 MG TAB PO SCH ×3 (08:32→20:28)
[2021-03-21] MEDS: ASPIRIN 81 MG ECTAB PO SCH (08:32)
[2021-03-21] MEDS: ISOSORBIDE MONO EXTENDED REL 30 MG TABCR PO SCH ×2 (08:32→20:29)
[2021-03-21] MEDS: CHOLECALCIFEROL 1,000 UNITS 25 MCG TAB PO SCH (08:32)
[2021-03-21] MEDS: LOSARTAN POTASSIUM 25 MG TAB PO SCH (08:32)
[2021-03-21] MEDS: HEPARIN SOD 5,000 UNIT/0.5 ML VIAL SQ SCH ×2 (08:32→20:27)
--- NOTE | 2021-03-21 08:41 | Nephrology Progress Note ---
Date of Service March 21, 2021 Assessment & Plan (1) Acute on chronic heart failure with reduced ejection fraction and diastolic dysfunction: * Continued gradual improvement * ~960cc UO overnight. Weight is down 3.2 kg since admission * Change Bumex to Torsemide 30 mg po daily (home dose) * CXR this am shows improved vascular congestion * Document strict I/O's and daily weight (2) CKD (chronic kidney disease): * Nonoliguric, Cr now trending up. Electrolytes acceptable * Patient has been rendered euvolemic * Will transition to oral diuretic * No acute indication for HD (3) Iron deficiency anemia: * Iron saturation 14% w/ ferritin 107 * Day #3 of 5 IV Venofer * FOBT 03/19 - negative Admission and Anticipated Discharge Date Admission Date: March 15, 2021 Subjective Mr. Fall was seen & examined in his hospital room this morning. He reports brisk UO yesterday with the combination of metolazone and bumetanide. Net 960cc UO overnight. Weight is down 3.2 kg since admission. Mr. Fall reports that his breathing is improved. He hopes to be weaned off O2 if possible Review of Systems Constitutional: + weakness; no fever Eyes: no problem reported Ear, Nose, Mouth, Throat: no problem reported Respiratory: + cough and + dyspnea Cardiovascular: no chest pain, no palpitations and no edema Gastrointestinal: no abdominal pain, no nausea and no diarrhea/loose stools Genitourinary: no dysuria, no urinary hesitancy and no hematuria Musculoskeletal: no back pain Integumentary: no rash Neurologic: no falls, no dizziness and no confusion Physical Exam Constitutional: not in distress Eyes: PERRL, conjunctivae normal, anicteric sclerae ENMT: external ear and nose normal, oropharynx normal Neck: trachea midline, no thyromegaly Respiratory: normal respiratory effort Auscultation: + rales Cardiovascular: RRR, no murmur, no edema Gastrointestinal (Abdomen): normal bowel sounds, soft, nontender, no hepatosplenomegaly Musculoskeletal: Extremities: no cyanosis Skin: no rashes, warm and dry Neurologic: awake; not confused Results & Data ([facility]) Vital Signs (Past 12 Hours) Vital Signs Temp Pulse Pulse Resp BP Pulse Ox 03/21/21 07:41 36.3 C L 90 18 124/68 93 03/21/21 03:26 36.5 C 74 18 101/46 L 95 03/20/21 23:10 82 03/20/21 22:38 78 20 96 03/20/21 22:27 36.4 C L 78 18 116/66 96 Laboratory Tests 03/21/21 03/21/21 05:43 05:43 WBC 9.09 Hgb 11.0 L Hct 33.3 L Plt Count 309 Sodium 135 L Potassium 3.5 Chloride 101 Carbon Dioxide 26 BUN 73 H Creatinine 2.80 H Glucose 101 H PG Care Time/CCT Total # of Minutes Spent Total Time Spent with Patient: Total time spent is greater than 50% in coordination of care (as documented) at patient's floor/unit and/or counseling patient: Coding Level of Care Code 92113 Subseq Hosp Care Lvl 3 Diagnoses Acute on chronic heart failure with reduced ejection fraction and diastolic dysfunction I50.43 CKD (chronic kidney disease) N18.9 Chronic kidney disease stage: unspecified stage Iron deficiency anemia D50.9 Iron deficiency anemia type: unspecified iron deficiency (1) CKD (chronic kidney disease) Chronic kidney disease stage: unspecified stage Qualified Code(s): N18.9 - Chronic kidney disease, unspecified (2) Iron deficiency anemia Iron deficiency anemia type: unspecified iron deficiency Qualified Code(s): D50.9 - Iron deficiency anemia, unspecified
--- NOTE | 2021-03-21 10:35 | Cardiology Progress Note ---
Date of Service March 21, 2021 Assessment & Plan (1) Acute on chronic heart failure with reduced ejection fraction and diastolic dysfunction: Continue Bumex 4 mg IV twice daily. Monitor daily weight, fluid balance, GFR, and electrolytes. Renal function remains stable. Continue other evidence- based heart failure therapies including carvedilol, losartan, isosorbide, and hydralazine as previously ordered. Transition to oral diuretic therapy in a.m. 03/22/21. Torsemide 30 mg twice daily. (2) Chronic kidney disease, stage 4 (severe): As above. Daily BMP. Nephrology following. (3) Hyponatremia: Continue to monitor. Nephrology input appreciated. (4) Anemia in chronic kidney disease: Hemoglobin stable. Admission and Anticipated Discharge Date Admission Date: March 15, 2021 Subjective Patient seen and examined at the bedside. Fluid balance negative 970cc. Creatinine trending upward to 2.80. Respiratory status improving. No orthopnea or PND. Telemetry reveals sinus rhythm in the 80s. Review of Systems Review of Systems: All systems reviewed & are unremarkable except as noted in Subjective Physical Exam Constitutional: well developed and well nourished; no acute distress Respiratory: Auscultation: no crackles, no rales, no rhonchi and no wheezes Cardiovascular: Rate/Rhythm: regular rate and regular rhythm Heart Sounds: normal S1, normal S2 and + murmur (2/6 systolic murmur heard best at the base.) Vessels: radial pulses present; no JVD and no carotid bruit Extremities: no edema Gastrointestinal (Abdomen): Inspection/Auscultation: abdomen normal to inspection and normal bowel sounds; abdomen not distended Percussion/Palpation: abdomen nontender and no guarding Neurologic: CN's II-XI intact bilaterally and moves all extremities; no focal motor deficits Motor/Sensory: no tremor Psychiatric: A+Ox3, euthymic affect Results & Data ([facility]) Vital Signs (Past 12 Hours) Vital Signs Temp Pulse Pulse Resp BP Pulse Ox 03/21/21 07:41 36.3 C L 90 18 124/68 93 03/21/21 03:26 36.5 C 74 18 101/46 L 95 03/20/21 23:10 82 03/20/21 22:38 78 20 96
--- NOTE | 2021-03-21 16:27 | Hospitalist Progress Note ---
Date of Service March 21, 2021 Assessment & Plan (1) Acute on chronic heart failure with reduced ejection fraction and diastolic dysfunction: Ischemic Cardiomyopathy (LVEF 30% to 34%) s/p Bi-V AICD. - Continue Coreg, losartan, Imdur, hydralazine - Was given 4 mg of IV Bumex on the evening of 03/16 and had improved UOP - Closely monitor I&O's, body weights, and renal function. - Weight down to 66.6 kg today which appears to be near baseline weight, though CT chest on 03/20 showed continued pulmonary edema (personally reviewed by me). Diuresis returned to baseline dosing. - CT also showed some areas of possible infection. Clearly could be related to prior Covid infection, but short CAP-aimed abx probably have relatively little risk and could prevent worse pneumonia. With renal function, decided on 5-day course of Keflex. (2) COPD (chronic obstructive pulmonary disease): With chronic cough since having Covid. - Continue daily Umeclidinium/Vilanterol - Add on prn Duonebs - Continue albuterol HFA prn - Continue Guaifenesin DM PRN - Will drop prednisone tomorrow to help reduce BUN (discussed with nephrology today). Will do a fairly rapid taper. (3) Ischemic cardiomyopathy: Ischemic Cardiomyopathy (LVEF 30% to 34%) s/p Medtronic Claria MRI VMWARE ENGINEER-D Bi-V AICD. - Followed by Kendra Reddy's [facility]iology. - Medtronic Claria MRI VMWARE ENGINEER-D BiV AICD -- last interrogated 02/23/21. (4) Hypoxia: With acute on chronic respiratory failure with hypoxia-he has been on 2 L nasal cannula since discharge with Covid-19 pneumonia 2 months ago. (5) CAD (coronary artery disease): S/p PCI of Proximal to mid-LAD (3 drug-eluting stents 11/06/19, Chronic RCA Occlusion, 40% OM2 stenosis), no acute issues. - Continue aspirin/Plavix - Continue carvedilol, isosorbide, atorvastatin (6) Chronic kidney disease, stage V: Creatinine baseline is a 2.5. S/p RUE AV fistula, though not presently requiring HD. - Quality Process Engineer today stable at 2.5 in setting of IV diuresis - Followed by Dr. Handy. Appreciate nephrology consultation. (7) S/P ICD (internal cardiac defibrillator) procedure: Medtronic Claria MRI VMWARE ENGINEER-D BiV AICD -- last interrogated 02/23/21. Has RA lead, RV lead, and LBB lead. (8) Iron deficiency anemia: Fe studies this admission with low transferrin sat 14%. IV Venofer given x 2 this admission; most recently on 03/19. - Continue home ferrous sulfate - Follow CBC - hemoglobin stable today at 11.0 (9) Hypertension: Blood pressures are stable at 105/60 today. - Continue meds as above (10) Hyperlipidemia: - Continue statin (11) Eosinophilia: Eosinophilia was quite high peripherally at 2650 on admission. Suddenly back to normal on 03/18. - Does have persistent cough since having Covid-question hypersensitivity pneumonitis. - Prior provider discussed with hematology who did not feel was likely related to leukemia. (12) DVT prophylaxis: Heparin 5,000 units SQ Q12h Admission and Anticipated Discharge Date Admission Date: March 15, 2021 Subjective Doing well today. Breathing improved. Reports no fevers/chills, chest pain, shortness of breath, abdominal pain, nausea, or vomiting. Physical Exam Constitutional: WD/WN, vitals as above Eyes: EOM intact bilaterally; no conjunctival abnormality ENMT: external ear and nose normal, oropharynx normal Neck: trachea midline, no thyromegaly normal visual inspection Respiratory: normal respiratory effort; no respiratory distress Auscultation: no wheezes Cardiovascular: RRR, no murmur, no edema Gastrointestinal (Abdomen): Inspection/Auscultation: abdomen normal to inspection; abdomen not distended Musculoskeletal: no cyanosis or clubbing, extremities motor strength 5/5 Skin: no rashes, warm and dry Neurologic: moves all extremities and awake Psychiatric: Orientation: alert, oriented to person and cooperative Results & Data Results & Data ([facility]) Vital Signs (Past 12 Hours) Vital Signs Temp Pulse Pulse Resp BP Pulse Ox Pulse Ox 03/21/21 12:00 36.6 C 80 18 122/67 96 03/21/21 10:44 93 03/21/21 07:41 36.3 C L 90 18 124/68 93 PG Care Time/CCT Total # of Minutes Spent Total Time Spent with Patient: Total time spent is greater than 50% in coordination of care (as documented) at patient's floor/unit and/or counseling patient: Coding Level of Care Code 93115 Subseq Hosp Care Lvl 2 Diagnoses Acute on chronic heart failure with reduced ejection fraction and diastolic dysfunction I50.43 COPD (chronic obstructive pulmonary disease) J44.9 COPD type: unspecified COPD Ischemic cardiomyopathy I25.5 Hypoxia R09.02 CAD (coronary artery disease) I25.10 Coronary Disease-Associated Artery/Lesion type: [place] artery [place] vs. transplanted heart: [place] heart Associated angina: without angina Chronic kidney disease, stage V N18.5 S/P ICD (internal cardiac defibrillator) procedure Z95.810 Iron deficiency anemia D50.9 Iron deficiency anemia type: unspecified iron deficiency Hypertension I10 Hypertension type: essential hypertension Hyperlipidemia E78.5 Eosinophilia D72.10 DVT prophylaxis Z29.9 (1) COPD (chronic obstructive pulmonary disease) COPD type: unspecified COPD Qualified Code(s): J44.9 - Chronic obstructive pulmonary disease, unspecified (2) CAD (coronary artery disease) Coronary Disease-Associated Artery/Lesion type: [place] artery [place] vs. transplanted heart: [place] heart Associated angina: without angina Qualified Code(s): I25.10 - Atherosclerotic heart disease of [place] coronary artery without angina pectoris (3) Iron deficiency anemia Iron deficiency anemia type: unspecified iron deficiency Qualified Code(s): D50.9 - Iron deficiency anemia, unspecified (4) Hypertension Hypertension type: essential hypertension Qualified Code(s): I10 - Essential (primary) hypertension
[2021-03-21] MEDS: cephALEXin 250 MG CAP PO SCH (20:26)
[2021-03-21] MEDS: ATORVASTATIN 40 MG TAB PO SCH (20:27)
[2021-03-22] MEDS: TORSEMIDE 10 MG TAB PO SCH ×2 (05:29→09:20)
[2021-03-22 05:43] LABS: Hemoglobin 11.1 g/dL (14.0-18.0); Mean Corpuscular Hemoglobin 32.1 pg (25-34); Mean Corpuscular Hgb Conc 33.6 g/dL (32-36); Mean Corpuscular Volume 95.4 fL (80-100); Mean Platelet Volume 10.2 fL (7.4-10.4); Platelet Count 295 K/uL (130-400); RDW Coefficient of Variation 15.2 % (11.5-14.5); RDW Standard Deviation 52.2 fL (36.4-46.3); Red Blood Count 3.46 M/uL (4.7-6.1); White Blood Count 8.59 K/uL (4.8-10.8)
[2021-03-22 06:04] LABS: BUN Creatinine Ratio 27.3 (10-20); Creatinine Clr Calc Pharmacy 23.8 ml/min; Est GFR (African American) 24.6 ml/min; Est GFR (Non-African American) 21.2 ml/min; Potassium 3.1 mmol/L (3.5-5.1)
[2021-03-22] MEDS: ISOSORBIDE MONO EXTENDED REL 30 MG TABCR PO SCH ×2 (09:18→21:33)
[2021-03-22] MEDS: cephALEXin 250 MG CAP PO SCH ×2 (09:18→21:32)
[2021-03-22] MEDS: carvediloL 6.25 MG TAB PO SCH ×2 (09:18→21:33)
[2021-03-22] MEDS: IRON SUCROSE 200 MG in 0.9 % SODIUM CHLORIDE 100 ML IV SCH (09:18)
[2021-03-22] MEDS: LOSARTAN POTASSIUM 25 MG TAB PO SCH (09:19)
[2021-03-22] MEDS: hydrALAZINE TAB 50 MG TAB PO SCH ×3 (09:19→21:33)
[2021-03-22] MEDS: CHOLECALCIFEROL 1,000 UNITS 25 MCG TAB PO SCH (09:19)
[2021-03-22] MEDS: ASPIRIN 81 MG ECTAB PO SCH (09:20)
[2021-03-22] MEDS: predniSONE 10 MG TABLET PO SCH (09:20)
[2021-03-22] MEDS: CEROVITE ADV FORMULA TAB PO SCH (09:20)
[2021-03-22] MEDS: UMECLIDINIUM/VILANTEROL 62.5/25MCG 7 PUFFS/INHALER INH SCH (09:21)
[2021-03-22] MEDS: PANTOprazole 40 MG TAB PO SCH (09:21)
[2021-03-22] MEDS: CLOPIDOGREL BISULFATE 75 MG TAB PO SCH (09:21)
[2021-03-22] MEDS: ALBUTEROL HFA 8 GM INHALER INH PRN (09:22)
[2021-03-22] MEDS ORDERED: POTASSIUM CHLORIDE CRTAB 20 MEQ TABCR PO STA (09:27)
--- NOTE | 2021-03-22 09:27 | Nephrology Progress Note ---
Date of Service March 22, 2021 Assessment & Plan (1) Acute on chronic heart failure with reduced ejection fraction and diastolic dysfunction: * Continued gradual improvement * ~1800 cc UO overnight. Weight is down 3 kg since admission * Change diuretic to Torsemide 30 mg po daily (home dose) this morning * Serum K 3.1. Will order supplement. Serum Mg was acceptable 03/19 * CXR 03/21 revealed improved vascular congestion * Document strict I/O's and daily weight * May need to accept Cr 2.9 - 3.0 to maintain euvolemic status. Discussed [employer] w/ patient today. He desires medical management and HD only as a last resort (2) CKD (chronic kidney disease): * Nonoliguric, electrolytes acceptable * Patient is clinically euvolemic * Change back to oral diuretic this am (IV has been stopped) (3) Iron deficiency anemia: * Iron saturation 14% w/ ferritin 107 * Day #4 of 5 IV Venofer * FOBT 03/19 - negative Admission and Anticipated Discharge Date Admission Date: March 15, 2021 Subjective Mr. Fall was seen & examined in his hospital room this morning. He reports brisk UO yesterday. Net 1775 cc UO overnight. Weight is down ~3 kg since admission. Mr. Fall reports that his breathing is improved. He hopes to be weaned off O2 if possible Review of Systems Constitutional: + weakness; no fever Eyes: no problem reported Ear, Nose, Mouth, Throat: no problem reported Respiratory: + dyspnea Cardiovascular: no chest pain, no palpitations and no edema Gastrointestinal: no abdominal pain, no nausea and no diarrhea/loose stools Genitourinary: no dysuria, no urinary hesitancy and no hematuria Musculoskeletal: no back pain Integumentary: no rash Neurologic: no falls, no dizziness and no confusion Physical Exam Constitutional: not in distress Eyes: PERRL, conjunctivae normal, anicteric sclerae ENMT: external ear and nose normal, oropharynx normal Neck: trachea midline, no thyromegaly Respiratory: normal respiratory effort Auscultation: + rales Cardiovascular: RRR, no murmur, no edema Gastrointestinal (Abdomen): normal bowel sounds, soft, nontender, no hepatosplenomegaly Musculoskeletal: Extremities: no cyanosis Skin: no rashes, warm and dry Neurologic: awake; not confused Results & Data ([facility]) Vital Signs (Past 12 Hours) Vital Signs Temp Pulse Pulse Resp BP Pulse Ox 03/22/21 07:11 68 03/22/21 07:07 36.6 C 70 22 112/55 L 97 03/22/21 04:00 36.4 C L 71 20 109/55 L 97 03/22/21 00:52 71 03/21/21 23:18 36.3 C L 77 20 126/66 96 Laboratory Tests 03/22/21 03/22/21 05:24 05:24 WBC 8.59 Hgb 11.1 L Hct 33.0 L Plt Count 295 Sodium 136 Potassium 3.1 L Chloride 102 Carbon Dioxide 26 BUN 82 H Creatinine 2.99 H Glucose 97 PG Care Time/CCT Total # of Minutes Spent Total Time Spent with Patient: Total time spent is greater than 50% in coordination of care (as documented) at patient's floor/unit and/or counseling patient: Coding Level of Care Code 80646 Subseq Hosp Care Lvl 3 Diagnoses Acute on chronic heart failure with reduced ejection fraction and diastolic dysfunction I50.43 CKD (chronic kidney disease) N18.9 Chronic kidney disease stage: unspecified stage Iron deficiency anemia D50.9 Iron deficiency anemia type: unspecified iron deficiency (1) CKD (chronic kidney disease) Chronic kidney disease stage: unspecified stage Qualified Code(s): N18.9 - Chronic kidney disease, unspecified (2) Iron deficiency anemia Iron deficiency anemia type: unspecified iron deficiency Qualified Code(s): D50.9 - Iron deficiency anemia, unspecified
[2021-03-22] MEDS: HEPARIN SOD 5,000 UNIT/0.5 ML VIAL SQ SCH ×3 (09:32→21:36)
--- NOTE | 2021-03-22 12:43 | Cardiology Progress Note ---
Date of Service March 22, 2021 Assessment & Plan (1) Acute on chronic heart failure with reduced ejection fraction and diastolic dysfunction: Discontinue IV diuretic therapy. Patient transition to torsemide 30 mg daily. I suspect he may ultimately require twice daily dosing, however, agree w ith once daily at this time due to elevated creatinine. Monitor daily weight, fluid balance, GFR, and electrolytes. Continue other evidence-based heart failure therapies including carvedilol, losartan, isosorbide, and hydralazine as previously ordered. Transition to oral diuretic therapy in a.m. 03/22/21. Torsemide 30 mg twice daily. (2) Chronic kidney disease, stage 4 (severe): Elevated creatinine today. Daily BMP. Nephrology following. (3) Hyponatremia: Continue to monitor. Nephrology input appreciated. (4) Anemia in chronic kidney disease: Hemoglobin stable. Admission and Anticipated Discharge Date Admission Date: March 15, 2021 Subjective Patient seen and examined the bedside. Feeling better from a cardiovascular perspective. Denies chest pain or unusual shortness of breath. Fluid balance - 1.1 L. Creatinine trending upward to 2.99. IV diuretic therapy discontinued. Telemetry reveals sinus rhythm with biventricular pacing. Note sustained dysrhythmias. Patient voices concern regarding elevated creatinine. Review of Systems Review of Systems: All systems reviewed & are unremarkable except as noted in Subjective Physical Exam Constitutional: well developed and well nourished; no acute distress Respiratory: Auscultation: no crackles, no rales, no rhonchi and no wheezes Cardiovascular: Rate/Rhythm: regular rate and regular rhythm Heart Sounds: normal S1, normal S2 and + murmur (2/6 systolic murmur heard best at the base.) Vessels: radial pulses present; no JVD and no carotid bruit Extremities: no edema Gastrointestinal (Abdomen): Inspection/Auscultation: abdomen normal to inspection and normal bowel sounds; abdomen not distended Percussion/Palpat[place] on: abdomen nontender and no guarding Neurologic: CN's II-XI intact bilaterally and moves all extremities; no focal motor deficits Motor/Sensory: no tremor Psychiatric: A+Ox3, euthymic affect Results & Data ([facility]) Vital Signs (Past 12 Hours) Vital Signs Temp Pulse Pulse Resp BP Pulse Ox 03/22/21 11:45 36.5 C 71 19 112/64 96 03/22/21 07:11 68 03/22/21 07:07 36.6 C 70 22 112/55 L 97 03/22/21 04:00 36.4 C L 71 20 109/55 L 97 03/22/21 00:52 71
--- NOTE | 2021-03-22 13:54 | Hospitalist Progress Note ---
Date of Service March 22, 2021 Assessment & Plan (1) Acute on chronic heart failure with reduced ejection fraction and diastolic dysfunction: Ischemic Cardiomyopathy (LVEF 30% to 34%) s/p Bi-V AICD. - Continue Coreg, losartan, Imdur, hydralazine - Was given Bumex 4 mg IV BID and had improved UOP -> Now back on home torsemide 30 mg PO daily. (May need to have further discussion of salt intake at home given he is doing well on home oral med while hospitalized.) - Closely monitor I&O's, body weights, and renal function. - Presently treating with home diuretic, lower dose prednisone 30 mg (to avoid uremia), and short CAP-oriented abx. Likely home tomorrow if kidney function stable. Short taper of prednisone and 3 more days of abx. (2) COPD (chronic obstructive pulmonary disease): With chronic cough since having Covid. - Continue daily Umeclidinium/Vilanterol (discussed with him, and he is using this as a proper maintenance inhaler). - Added on Duonebs PRN - Continue albuterol HFA PRN - Continue Guaifenesin DM PRN - Could lower prednisone on discharge to help reduce uremia. (3) Ischemic cardiomyopathy: Ischemic Cardiomyopathy (LVEF 30% to 34%) s/p [employer]-D Bi-V AICD. - Followed by [facility]. - [employer]-D BiV AICD -- last interrogated 02/23/21. (4) Hypoxia: With acute on chronic respiratory failure with hypoxia-he has been on 2 L nasal cannula since discharge with Covid-19 pneumonia 2 months ago. - Presently down to room air at rest; still using 2L with exertion. (5) CAD (coronary artery disease): S/p PCI of Proximal to mid-LAD (3 drug-eluting stents 11/06/19, Chronic RCA Occlusion, 40% OM2 stenosis), no acute issues. - Continue aspirin/Plavix - Continue carvedilol, isosorbide, atorvastatin (6) Chronic kidney disease, stage V: Creatinine baseline is a 2.5. S/p RUE AV fistula, though not presently requiring HD. - Cr up today to at 3.0 in setting of IV diuresis - Followed by Dr. Handy. Appreciate nephrology consultation. (7) S/P ICD (internal cardiac defibrillator) procedure: [employer]-D BiV AICD -- last interrogated 02/23/21. Has RA lead, RV lead, and LBB lead. (8) Iron deficiency anemia: Fe studies this admission with low transferrin sat 14%. IV Venofer given x 4 this admission; most recently on 03/22. - Continue home ferrous sulfate - Follow CBC - hemoglobin stable today at 11.1 (9) Hypertension: Blood pressures are stable at 110/65 today. - Continue meds as above (10) Hyperlipidemia: - Continue statin (11) Eosinophilia: Eosinophilia was quite high peripherally at 2650 on admission. Suddenly back to normal on 03/18. - Does have persistent cough since having Covid-question hypersensitivity pneumonitis. - Prior provider discussed with hematology who did not feel was likely related to leukemia. (12) DVT prophylaxis: Heparin 5,000 units SQ Q12h Admission and Anticipated Discharge Date Admission Date: March 15, 2021 Subjective Doing well today. Breathing is good. Reports no fevers/chills, chest pain, shortness of breath, abdominal pain, nausea, or vomiting. Physical Exam Constitutional: WD/WN, vitals as above Eyes: EOM intact bilaterally; no conjunctival abnormality ENMT: external ear and nose normal, oropharynx normal Neck: trachea midline, no thyromegaly normal visual inspection Respiratory: normal respiratory effort; no respiratory distress Auscultation: no wheezes Cardiovascular: RRR, no murmur, no edema Gastrointestinal (Abdomen): Inspection/Auscultation: abdomen normal to inspection; abdomen not distended Musculoskeletal: no cyanosis or clubbing, extremities motor strength 5/5 Skin: no rashes, warm and dry Neurologic: moves all extremities and awake Psychiatric: Orientation: alert, oriented to person and cooperative Results & Data Results & Data ([facility]) Vital Signs (Past 12 Hours) Vital Signs Temp Pulse Pulse Resp BP Pulse Ox 03/22/21 11:45 36.5 C 71 19 112/64 96 03/22/21 07:11 68 03/22/21 07:07 36.6 C 70 22 112/55 L 97 03/22/21 04:00 36.4 C L 71 20 109/55 L 97 PG Care Time/CCT Total # of Minutes Spent Total Time Spent with Patient: Total time spent is greater than 50% in coordination of care (as documented) at patient's floor/unit and/or counseling patient: Coding Level of Care Code 89848 Subseq Hosp Care Lvl 3 Diagnoses Acute on chronic heart failure with reduced ejection fraction and diastolic dysfunction I50.43 COPD (chronic obstructive pulmonary disease) J44.9 COPD type: unspecified COPD Ischemic cardiomyopathy I25.5 Hypoxia R09.02 CAD (coronary artery disease) I25.10 Coronary Disease-Associated Artery/Lesion type: [place] artery [place] vs. transplanted heart: [place] heart Associated angina: without angina Chronic kidney disease, stage V N18.5 S/P ICD (internal cardiac defibrillator) procedure Z95.810 Iron deficiency anemia D50.9 Iron deficiency anemia type: unspecified iron deficiency Hypertension I10 Hypertension type: essential hypertension Hyperlipidemia E78.5 Eosinophilia D72.10 DVT prophylaxis Z29.9 (1) COPD (chronic obstructive pulmonary disease) COPD type: unspecified COPD Qualified Code(s): J44.9 - Chronic obstructive pulmonary disease, unspecified (2) CAD (coronary artery disease) Coronary Disease-Associated Artery/Lesion type: [place] artery [place] vs. transplanted heart: [place] heart Associated angina: without angina Qualified Code(s): I25.10 - Atherosclerotic heart disease of [place] coronary artery without angina pectoris (3) Iron deficiency anemia Iron deficiency anemia type: unspecified iron deficiency Qualified Code(s): D50.9 - Iron deficiency anemia, unspecified (4) Hypertension Hypertension type: essential hypertension Qualified Code(s): I10 - Essential (primary) hypertension
[2021-03-22] MEDS: ATORVASTATIN 40 MG TAB PO SCH (21:33)
[2021-03-23 06:43] LABS: Basophils # (auto) 0.01 K/uL (0-0.2); Basophils % (auto) 0.1 %; Eosinophils # (auto) 0.16 K/uL (0-0.5); Eosinophils % (auto) 1.8 %; Hematocrit (blood only) 32.9 % (42-52); Hemoglobin 11.3 g/dL (14.0-18.0); Immature Granulocytes # (auto) 0.08 K/uL (0.00-0.02); Immature Granulocytes % (auto) 0.9 %; Lymphocytes # (auto) 1.86 K/uL (1.2-3.4); Mean Corpuscular Hgb Conc 34.3 g/dL (32-36); Mean Corpuscular Volume 93.2 fL (80-100); Mean Platelet Volume 10.3 fL (7.4-10.4); Monocytes # (auto) 1.11 K/uL (0.11-0.59); Monocytes % (auto) 12.6 %; Neutrophils # (auto) 5.62 K/uL (1.4-6.5); Neutrophils % (auto) 63.6 %; Platelet Count 292 K/uL (130-400); RDW Coefficient of Variation 15.3 % (11.5-14.5); RDW Standard Deviation 51.5 fL (36.4-46.3); Red Blood Count 3.53 M/uL (4.7-6.1); White Blood Count 8.84 K/uL (4.8-10.8)
[2021-03-23 07:14] LABS: BUN Creatinine Ratio 29.8 (10-20); Calcium 8.1 mg/dl (8.5-10.1); Creatinine Clr Calc Pharmacy 25.5 ml/min; Est GFR (African American) 26.7 ml/min; Est GFR (Non-African American) 23.1 ml/min; Magnesium 2.4 mg/dl (1.8-2.4)
[2021-03-23] MEDS: cephALEXin 250 MG CAP PO SCH (08:11)
[2021-03-23] MEDS: ISOSORBIDE MONO EXTENDED REL 30 MG TABCR PO SCH (08:11)
[2021-03-23] MEDS: carvediloL 6.25 MG TAB PO SCH (08:11)
[2021-03-23] MEDS: hydrALAZINE TAB 50 MG TAB PO SCH (08:11)
[2021-03-23] MEDS: HEPARIN SOD 5,000 UNIT/0.5 ML VIAL SQ SCH ×2 (08:12→08:17)
[2021-03-23] MEDS: CEROVITE ADV FORMULA TAB PO SCH (08:12)
[2021-03-23] MEDS: LOSARTAN POTASSIUM 25 MG TAB PO SCH (08:12)
[2021-03-23] MEDS: UMECLIDINIUM/VILANTEROL 62.5/25MCG 7 PUFFS/INHALER INH SCH (08:12)
[2021-03-23] MEDS: CHOLECALCIFEROL 1,000 UNITS 25 MCG TAB PO SCH (08:13)
[2021-03-23] MEDS: ASPIRIN 81 MG ECTAB PO SCH (08:13)
[2021-03-23] MEDS: PANTOprazole 40 MG TAB PO SCH (08:13)
[2021-03-23] MEDS: predniSONE 10 MG TABLET PO SCH (08:14)
[2021-03-23] MEDS: IRON SUCROSE 200 MG in 0.9 % SODIUM CHLORIDE 100 ML IV SCH (08:14)
[2021-03-23] MEDS: CLOPIDOGREL BISULFATE 75 MG TAB PO SCH (08:14)
[2021-03-23] MEDS: TORSEMIDE 10 MG TAB PO SCH (08:15)
[2021-03-23] MEDS ORDERED: POTASSIUM CHLORIDE CRTAB 20 MEQ TABCR PO STA (09:20)
--- NOTE | 2021-03-23 09:28 | Nephrology Progress Note ---
Date of Service March 23, 2021 Assessment & Plan (1) Acute on chronic heart failure with reduced ejection fraction and diastolic dysfunction: * Continued gradual improvement * ~1445 cc UO overnight. Weight is down 3 kg since admission * Diuretic changed to Torsemide 30 mg po daily (home dose) yesterday * Serum K 3.0. Will order supplement. Serum Mg was acceptable 03/19 * CXR 03/21 revealed improved vascular congestion * Document strict I/O's and daily weight * If discharge is anticipated, please continue current diuretic dose and have patient follow up w/ Dr. Handy within 2 weeks ([phone]) (2) CKD (chronic kidney disease): * Nonoliguric, electrolytes acceptable * Patient is clinically euvolemic (3) Iron deficiency anemia: * Iron saturation 14% w/ ferritin 107 * Day #5 of 5 IV Venofer * FOBT 03/19 - negative Admission and Anticipated Discharge Date Admission Date: March 15, 2021 Subjective Mr. Fall was seen & examined in his hospital room this morning. He reports brisk UO yesterday. Net 1445 cc UO overnight. Weight is down ~3 kg since admission. Mr. Fall reports that his breathing is improved. He has been weaned off oxygen while at rest. He was able to ambulate in the hallway without complication yesterday Review of Systems Constitutional: no fever and no weakness Eyes: no problem reported Ear, Nose, Mouth, Throat: no problem reported Respiratory: no dyspnea Cardiovascular: no chest pain, no palpitations and no edema Gastrointestinal: no abdominal pain, no nausea and no diarrhea/loose stools Genitourinary: no dysuria, no urinary hesitancy and no hematuria Musculoskeletal: no back pain Integumentary: no rash Neurologic: no falls, no dizziness and no confusion Physical Exam Constitutional: not in distress Eyes: PERRL, conjunctivae normal, anicteric sclerae ENMT: external ear and nose normal, oropharynx normal Neck: trachea midline, no thyromegaly Respiratory: normal respiratory effort Auscultation: + rales Cardiovascular: RRR, no murmur, no edema Gastrointestinal (Abdomen): normal bowel sounds, soft, nontender, no hepatosplenomegaly Musculoskeletal: Extremities: no cyanosis Skin: no rashes, warm and dry Neurologic: awake; not confused Results & Data ([facility]) Vital Signs (Past 12 Hours) Vital Signs Temp Pulse Pulse Resp BP Pulse Ox 03/23/21 07:20 36.4 C L 77 18 120/65 94 03/23/21 07:02 81 03/23/21 04:05 36.6 C 72 17 110/66 94 03/22/21 23:04 36.5 C 75 19 112/58 L 90 03/22/21 22:20 77 03/22/21 21:31 80 127/66 Laboratory Tests 03/23/21 03/23/21 06:16 06:16 WBC 8.84 Hgb 11.3 L Hct 32.9 L Plt Count 292 Sodium 135 L Potassium 3.0 L Chloride 100 Carbon Dioxide 24 BUN 83 H Creatinine 2.79 H Glucose 97 PG Care Time/CCT Total # of Minutes Spent Total Time Spent with Patient: Total time spent is greater than 50% in coordi [place] of care (as documented) at patient's floor/unit and/or counseling patient: Coding Level of Care Code 28255 Subseq Hosp Care Lvl 3 Diagnoses Acute on chronic heart failure with reduced ejection fraction and diastolic dysfunction I50.43 CKD (chronic kidney disease) N18.9 Chronic kidney disease stage: unspecified stage Iron deficiency anemia D50.9 Iron deficiency anemia type: unspecified iron deficiency (1) CKD (chronic kidney disease) Chronic kidney disease stage: unspecified stage Qualified Code(s): N18.9 - Chronic kidney disease, unspecified (2) Iron deficiency anemia Iron deficiency anemia type: unspecified iron deficiency Qualified Code(s): D50.9 - Iron deficiency anemia, unspecified
[2021-03-23] MEDS ORDERED: POTASSIUM CHLORIDE CRTAB 20 MEQ TABCR PO ONE (09:29)
--- NOTE | 2021-03-23 13:37 | Cardiology Progress Note ---
Date of Service March 23, 2021 Assessment & Plan (1) Acute on chronic heart failure with reduced ejection fraction and diastolic dysfunction: Patient transition to torsemide 30 mg daily 03/22/2021. Serum creatinine has returned to baseline. Instructed to monitor daily weight at home. He will take an additional 30 mg of oral torsemide if weight increases more than 2 pounds in a 48-hour period, or 5 pounds in 1 week. Sodium restriction advised. I suspect he may ultimately require twice daily dosing to maintain adequate fluid balance. Continue other evidence-based heart failure therapies including carvedilol, losartan, isosorbide, and hydralazine as previously ordered. Outpatient cardiology follow-up in 7-14 days. (2) Chronic kidney disease, stage 4 (severe): Creatinine has returned to baseline. No med changes. Nephrology followin g. (3) Hyponatremia: Stable. Continue to monitor. Nephrology input appreciated. (4) Anemia in chronic kidney disease: Hemoglobin stable. Admission and Anticipated Discharge Date Admission Date: March 15, 2021 Subjective Patient seen and examined the bedside. Denies chest pain or shortness of breath. Fluid balance negative approximately 1500 cc. Transition to oral diuretic therapy yesterday. Tolerating torsemide 30 mg daily (outpatient dose. Denies chest pain or shortness of breath. Telemetry reveals sinus rhythm with biventricular paced rhythm. Requesting discharge if possible. Review of Systems Review of Systems: All systems reviewed & are unremarkable except as noted in Subjective Physical Exam Constitutional: well developed and well nourished; no acute distress Respiratory: Auscultation: no crackles, no rales, no rhonchi and no wheezes Cardiovascular: Rate/Rhythm: regular rate and regular rhythm Heart Sounds: normal S1, normal S2 and + murmur (2/6 systolic murmur heard best at the base.) Vessels: radial pulses present; no JVD and no carotid bruit Extremities: no edema Gastrointestinal (Abdomen): Inspection/Auscultation: abdomen normal to inspection and normal bowel sounds; abdomen not distended Percussion/Palpation: abdomen nontender and no guarding Neurologic: CN's II-XI intact bilaterally and moves all extremities; no focal motor deficits Motor/Sensory: no tremor Psychiatric: A+Ox3, euthymic affect Results & Data ([facility]) Vital Signs (Past 12 Hours) Vital Signs Temp Pulse Pulse Resp BP BP Pulse Ox 05/19/21 11:26 36.5 C 61 18 94/55 L 93 03/23/21 07:20 36.4 C L 77 18 120/65 94 03/23/21 07:02 81 03/23/21 04:05 36.6 C 72 17 110/66 94
--- NOTE | 2021-03-23 14:04 | Discharge Summary ---
Date of Service March 23, 2021 Admission HPI Per Admitting Provider Mr. Fall is a 61-year-old male with a history of CAD s/p PCI of Proximal to Mid LAD (3 drug-eluting stents 11/06/19, Chronic RCA Occlusion, 40% OM2 stenosis), Ischemic Cardiomyopathy (LVEF 30% to 34%) s/p [employer] Claria MRI [employer] SUPERVISOR-D Bi-V AICD, Valvular Heart Disease, Hypertension, Dyslipidemia, PAD, Stage 4 CKD, Anemia, Chronic Intermittent Hyponatremia, BRYAN on CPAP, and Emphysema/COPD who was hospitalized in January 2021 with pneumonia complicated by acute kidney injury, dehydration, hyponatremia, and nonsustained ventricular tachycardia. Because of his renal injury and his metabolic disturbances, he was discharged from the hospital without Torsemide but he was prescribed sodium chloride 1 g a day along with sodium bicarbonate 650 mg t.i.d.. Following that hospitalization, he began to note gradual weight gain, progressive shortness of breath, and lower extremity edema -- so he restarted torsemide on his own. Unfortunately, he did not have the diuretic response that he was hoping for. He continued to feel poorly, short of breath, and he has been sleeping in his recliner for over a month now. He met with Erlin Duncan PA-C at [facility] on 03/11/21 and complained of these same symptoms along with t he significant leg edema. Patient received IV Lasix in the office and his Torsemide was increased to 60 mg b.i.d. -- and although his weight came down about 3 lb since then, he has still not reached his baseline dry weight or his baseline breathing status. Patient offers no other complaints. He denies any exertional chest pain or angina pectoris. He denies any exertional neck, jaw, back, or arm pain. He denies any palpitations, syncope, near-syncope, or any discharges from his defibrillator. Principal Diagnosis Acute on chronic combined systolic and diastolic CHF, Acute COPD exacerbation, Acute on chronic respiratory failure with hypoxia Discharge Exam Constitutional WD/WN, vitals as above Eyes + anicteric sclerae Neck trachea midline, no thyromegaly Respiratory normal respiratory effort, lungs clear to auscultation Auscultation: no wheezes Cardiovascular RRR, no murmur, no edema Chest (Breasts) Chest: normal inspection of chest Gastrointestinal (Abdomen) normal bowel sounds, soft, nontender, no hepatosplenomegaly Musculoskeletal Extremities: extremities normal to inspection; no cyanosis and no clubbing Skin no rashes, warm and dry Neurologic moves all extremities and awake; no focal motor deficits Psychiatric A+Ox3, euthymic affect Lymphatic no lymphedema Discharge Data Allergies Allergy/AdvReac Type Severity Reaction Status Date / Time No Known Allergies Allergy Unknown Verified 03/14/21 12:41 Consultations 03/14/21 12:25 ED Decision to Admit Stat 03/15/21 16:57 Consult Cardiology Routine 03/15/21 17:10 Consult Nephrology Routine Ordered Studies 03/20/21 13:38 CT chest diagnostic wo con Routine Chest X-Ray 03/14/21 09:37 XR chest 1V portable HISTORY: 61 years-old Male Chest Pain acute atypical chest pain COMPARISON: Chest radiograph 01/22/2021 TECHNIQUE: Portable AP view of the chest FINDINGS: Cardiac silhouette is enlarged. Left subclavian pacer/AICD. Pulmonary vascular congestion with interstitial coarsening. No pneumothorax. Left greater than right layering pleural effusions with bibasilar opacities. Degenerative changes of the shoulders and spine. IMPRESSION: 1. Cardiomegaly with pulmonary edema. 2. Layering pleural effusions with bibasilar opacities suggestive of atelectasis. Infectious or inflammatory pneumonitis could appear similarly. ACT 112: Negative or not required by law. The above report was generated using voice recognition software. It may contain grammatical, syntax or spelling errors. Electronically signed by: John Horton M.D. 03/14/2021 9:59 AM Chest X-Ray 03/20/21 06:00 XR chest 1V portable CLINICAL HISTORY: CHF COMPARISON STUDY: Chest CT T August 10, 2020. Chest radiograph March 14, 2021 FINDINGS: Left subclavian pacer/AICD is in place. Cardiomegaly is noted. There are small bilateral pleural effusions. There is no pneumothorax. Interstitial thickening represents pulmonary edema. Right lung airspace opacities have progressed. IMPRESSION: 1. Persistent pulmonary edema and bilateral pleural effusions. 2. Increase in right lung airspace opacities which could reflect alveolar edema or superimposed pneumonia. Radiographic follow-up to ensure resolution is recommended. ACT 112: Negative or not required by law. Electronically signed by: Naldo Bermeo M.D. 03/20/2021 7:[address] 03/20/21 13:38 CT OF THE CHEST WITHOUT IV CONTRAST CLINICAL HISTORY: Hypoxemia; pneumonia vs. edema COMPARISON STUDY: Chest CT August 10, 2020. Chest radiograph performed earlier today. CT DOSE: 234.22 mGy.cm TECHNIQUE: Axial images of the chest were obtained without IV contrast. Images were reviewed in the axial, sagittal, and coronal planes. IV contrast was not administered for this examination. Automated exposure control was utilized for the study. A dose lowering technique was utilized adhering to the principles of ALARA. FINDINGS: A left subclavian pacer/AICD is in place. Note is made of moderate cardiomegaly. There is no pericardial effusion. Extensive coronary artery calcification is noted. Note is made of several mildly enlarged mediastinal and right hilar lymph nodes. Index right suprahilar lymph node on image 108 measures 1.2 cm in short axis diameter. There is no pneumothorax. [place]hs-bmbs[place]ior bilateral pleural effusions are present. Emphysema is noted. Interlobular septal thickening is present. Several irregular nodular opacities within the right upper lobe are noted, including a 1.1 cm nodular opacity on image 50 of 286. Bilateral lower lobe opacities favor atelectasis. Mild left upper lobe airspace opacities are present. Central airways are patent. No acute fracture or suspicious lesion is identified within visualized skeletal structures. Lobulated appearance of the spleen is unchanged. IMPRESSION: 1. Small to moderate bilateral pleural effusions with interstitial pulmonary edema. Associated bilateral lower lobe opacities favor atelectasis. 2. A few nodular right upper lobe airspace opacities which favor a superimposed infectious process. A 1.1 cm right upper lobe nodular opacity is likely infectious however a follow up chest CT in 3 months to ensure resolution is recommended. 3. Emphysema. 4. Cardiomegaly and extensive coronary artery calcification. 5. Mildly enlarged mediastinal and right hilar lymph nodes which are probably reactive. These can be assessed on follow-up chest CT. ACT 112: Negative or not required by law. Electronically signed by: Naldo Bermeo M.D. 03/20/2021 2:19 PM Chest X-Ray 03/21/21 06:00 XR chest 1V portable CLINICAL HISTORY: CHF COMPARISON STUDY: March 20, 2021 FINDINGS: No pneumothorax. Mild interval improvement of bilateral pleural effusion which now appear small. Possibly loculated pleural effusion is seen at the lower left lateral hemithorax. Small atelectasis are seen in bilateral bases. There is mild interval improvement of diffuse reticular opacities seen bilaterally. Peribronchial cuffing is again visualized. Cardiomediastinal silhouette are within upper limits of normal and unchanged since prior. Aorta is calcified. Mild interval improvement of pulmonary vascular congestion.. Osseous structures: Degenerative changes of the right acromioclavicular joint. Stable position of left-sided triple lead AICD with battery pack partially obscuring left lung parenchyma. IMPRESSION: 1. Interval improvement of CHF pattern as detailed above. ACT 112: Positive. There are findings on this exam that require communication between the performing entity and the patient following Patient Test Result Information Act ([place] Act 112) guidelines. Electronically signed by: Char Tavares DO 03/21/2021 7:27 AM Hospital Course (1) Acute on chronic heart failure with reduced ejection fraction and diastolic dysfunction: Ischemic Cardiomyopathy (LVEF 30% to 34%) s/p Bi-V AICD. Much improved, weight down 3kg since admission - Continue Coreg, losartan, Imdur, hydralazine - Was given Bumex 4 mg IV BID and had improved UOP -> Now back on home torsemide 30 mg PO daily. (May need to have further discussion of salt intake at home given he is doing well on home oral med while hospitalized.) - Closely monitor I&O's, body weights, and renal function as outpt. -give KCL 10meq po once daily for hypokalemia and f/u BMP in 1 week (2) COPD (chronic obstructive pulmonary disease): With chronic cough since having Covid. had diffuse wheezing here and now much improved with treating with course of prednisone - Continue daily Umeclidinium/Vilanterol (discussed with him, and he is using this as a proper maintenance inhaler). - Continue albuterol HFA PRN finsih out prednisone taper f/u with PULM after discharge (3) Ischemic cardiomyopathy: Ischemic Cardiomyopathy (LVEF 30% to 34%) s/p [employer] Claria MRI [employer] SUPERVISOR-D Bi-V AICD. - [facility] - [employer] Claria MRI COMMISS[employer]ODUCTION SUPERVISOR-D BiV AICD -- last interrogated 02/23/21. (4) Hypoxia: With acute on chronic respiratory failure with hypoxia-he has been on 2 L nasal cannula since discharge with Covid-19 pneumonia 2 months ago. - Presently down to room air at rest; still using 2L with exertion. Much improved with using prednisone (5) CAD (coronary artery disease): S/p PCI of Proximal to mid-LAD (3 drug-eluting stents 11/06/19, Chronic RCA Occlusion, 40% OM2 stenosis), no acute issues. - Continue aspirin/Plavix - Continue carvedilol, isosorbide, atorvastatin (6) Chronic kidney disease, stage V: Creatinine baseline is a 2.5. S/p RUE AV fistula, though not presently requiring HD. - Cr up to at 3.0 in setting of IV diuresis, now improved to 2.6 on day of discharge - Followed by Dr. Handy. Appreciate nephrology consultation. f/u Nephro in 2 weeks check BMP in 1 week as outpt (7) S/P ICD (internal cardiac defibrillator) procedure: Medtronic LISNRia MRI [employer]ISS[employer]ODUCTION SUPERVISOR-D BiV AICD -- last interrogated 02/23/21. Has RA lead, RV lead, and LBB lead. (8) Iron deficiency anemia: Fe studies this admission with low transferrin sat 14%. IV Venofer given x 4 this admission; most recently on 03/22. - Continue home ferrous sulfate - Follow CBC - hemoglobin stable today at 11.3 (9) Hypertension: Blood pressures stable - Continue meds as above (10) Hyperlipidemia: - Continue statin (11) Eosinophilia: Eosinophilia was quite high peripherally at 2650 on admission. Then back to normal on 03/18 after starting prednisone burst - Does have persistent cough since having Covid-question hypersensitivity pneumonitis. Cough now resolved - Prior provider discussed with hematology who did not feel was likely related to leukemia. f/u with PULM after discharge (12) DVT prophylaxis: Heparin 5,000 units SQ Q12h Dispo-stable for dc to home Total Time Total Time Spent Total Time Spent (In Minutes): 40 min Total Time Includes: Examination of the Patient, Discharge Planning and Medication Reconciliation Discharge Plan Discharge Items Patient Disposition: Home - Self-Care Reason For Visit: CHF Discharge Diagnosis: Acute CHF exacerbation, COPD exacerbation, Hypoxia Condition on Discharge: Good Activity: Resume your previous activity Non-emergency contact: Primary Care Provider, Director Of Direct Marketing, Packager Hand and House Builder Call non-emergency contact if: you have any medication questions and your symptoms worsen Follow-up/Referrals: Heide Handy MD [Physician] - (Follow up within 2 weeks) Zaheer Grimm MD [Physician] - (Follow up within 2-3 weeks) Erlin Duncan [Physician [employer]ing Machine Operator] - (Follow up within 2 weeks.) Nixon Pollack MD [Primary Care Provider] - (Follow up within 1-2 weeks.) Diet: Heart Healthy and Low Sodium (2gm) Fluids: 1800ml (7 cups) Ambulatory Orders: Basic Metabolic Panel (Routine) Timeframe: 1 Week Location: Determined by Patient Ordered By: Kathryn Tamayo Attending Provider Instructions: You were admitted with fluid overload from congestive heart failure. You also had lower oxygen levels because of the CHF, but also from COPD and wheezing. Please finish out the prednisone taper and continue your rescue inhaler as needed. Continue on your torsemide 30mg once daily and take a low dose potassium pill along with it. Have your blood work checked in 1 week and follow up with the Packager Hand in 2 weeks. You should also follow up with the Director Of Direct Marketing and your PCP. Call your Primary Care doctor if any of the following symptoms or problems start or get worse: * Shortness of breath or difficulty breathing * Wake up at night short of breath * Chest pain * Cough * Swelling of your hands, feet, or legs * More fatigued or tired with your normal activity * Palpitations - sudden fast heart beats WEIGHT * Weigh yourself every morning after using the bathroom. * Use the same scale. * Wear the same amount of clothing. * Write your weight down on a chart. * Call your Primary Care doctor if you gain more than 2-3 pounds in 1-2 days. MEDICATIONS * Use this discharge instruction sheet for medication instructions. * Take your medications at the time your doctor ordered. * Do not skip a dose of your medicines. * If you miss a dose of medicine, take it as soon as possible, but DO NOT DOUBLE A DOSE. * Read your medicine information when you get home. * Know all of the side effects of your medicine. If in doubt, ask your pharmacist * Call your Primary Care doctor's office if you have any side effects. * Be sure all of your doctors know what medicine and herbs you take (including cold, flu, and herbal medicine). Take the following with you to your follow-up doctor appointments: * Weight Chart * Medication List * List of questions Do not drink excessive alcohol, beer or wine. Pending Studies at Discharge: No Stand-Alone Forms: My [facility], Smoking Cessation Medications and DC Order Prescriptions: New prednisone 10 mg Tablet 30 mg PO QAM Qty: 12 RF: 0 potassium chloride 10 mEq tablet extended release 10 meq PO DAILY Qty: 14 RF: 0 Continued Stiolto Respimat 2.5-2.5 mcg/actuation mist 2 puff inhalation DAILY Qty: 4 RF: 2 albuterol sulfate 90 mcg/actuation HFA aerosol inhaler 1 inh inhalation QID PRN (Reason: shortness of breath or wheezing) Qty: 18 RF: 3 carvedilol 6.25 mg tablet 6.25 mg PO BID RF: 0 hydralazine 50 mg tablet 50 mg PO TID RF: 0 pantoprazole 40 mg tablet,delayed release (DR/EC) 40 mg PO QAM RF: 0 aspirin 81 mg Tablet,Delayed Release (Dr/Ec) 81 mg PO QAM RF: 0 (DME) Spacer for Inhaler Misc See Rx Instructions .ROUTE .MEDSUPPLY Qty: 1 RF: 0 isosorbide mononitrate 30 mg tablet extended release 24 hr 30 mg PO BID Qty: 60 RF: 0 PreserVision AREDS-2 [phone] Capsule 1 tab PO BID RF: 0 losartan 25 mg tablet 25 mg PO QAM RF: 0 atorvastatin 80 mg Tablet 80 mg PO HS RF: 0 cholecalciferol (vitamin D3) 2,000 unit Tablet,Chewable 2,000 unit PO QAM RF: 0 ferrous sulfate [iron] 325 mg (65 mg iron) tablet 325 mg PO QAM RF: 0 torsemide 10 mg tablet 30 mg PO QAM RF: 0 acetaminophen [Tylenol] 325 mg Tablet 325 mg PO QID PRN (Reason: Pain) RF: 0 clopidogrel [Plavix] 75 mg Tablet 75 mg PO DAILY RF: 0 polyethylene glycol 3350 [Miralax] 17 gram Powder In Packet 17 g PO DAILY PRN (Reason: constipation) Qty: 30 RF: 0 albuterol sulfate 90 mcg/actuation HFA aerosol inhaler 2 puffs INH Q6H PRN (Reason: shortness of breath or wheezing) Qty: 18 RF: 0 Discontinued sodium bicarbonate 650 mg Tablet 650 mg PO TID Qty: 60 RF: 0 Discharge Orders: Discharge Order (Routine); Ordered 03/23/21 Ordered By: Kathryn Villalta Admission Data Admit Date/Time: 03/15/21 17:10 Attending Provider: Kathryn Villalta Admit Provider: Domingo Joyce Primary Care Provider: Nixon Pollack Other Providers: [facility] ; Tao Sosa Kevin C. Coding Level of Care Code D/C Day Management >30 mins Diagnoses Acute on chronic heart failure with reduced ejection fraction and diastolic dysfunction I50.43 COPD (chronic obstructive pulmonary disease) J44.9 COPD type: unspecified COPD Ischemic cardiomyopathy I25.5 Hypoxia R09.02 CAD (coronary artery disease) I25.10 Coronary Disease-Associated Artery/Lesion type: [place] artery [place] vs. transplanted heart: [place] heart Associated angina: without angina Chronic kidney disease, stage V N18.5 S/P ICD (internal cardiac defibrillator) procedure Z95.810 Iron deficiency anemia D50.9 Iron deficiency anemia type: unspecified iron deficiency Hypertension I10 Hypertension type: essential hypertension Hyperlipidemia E78.5 Eosinophilia D72.10 DVT prophylaxis Z29.9
== END 2021-03-23 14:45 | disposition home or self-care (01) | DRG 291 ==
LOC: ED 09:20 → 2N 09:20 → SUATTDRO 14:46 → 2N 16:09 → SUATTDRO 03-15 17:10

== ENCOUNTER 2021-06-23 10:53 | Inpatient (IN) ==
--- NOTE | 2021-06-23 11:47 | Emergency Department Note ---
Impression & Plan CHF (congestive heart failure), Chronic kidney disease, stage V, DAVIS (dyspnea on exertion) ED Provider Note Provider: Dago Dennis MD DATE OF SERVICE: 06/23/2021 CHIEF COMPLAINT: Short of breath, referred by slicing machine operator HISTORY OF PRESENT ILLNESS: Patient is a 61-year-old gentleman history of CHF/CAD, COPD, Covid, and CKD presenting here today referred by his slicing machine operator office due to worsening shortness of breath. Patient states that developed over the past week. He is gained the state pounds in weight. Some minimal leg swellings reported. Reports worsening shortness of breath with movement. Denies any chest pain or abdominal pain. Denies any nausea or vomiting. Denies any trauma or falls. Patient has been seen consistently last several days in the cardiology office and had received additional doses of Lasix. 80 mg via IV 2 days ago 100 mg IV yesterday and his weight continues to increase. Has been on torsemide at home as well. Patient states he is still urinating but has a history of chronic kidney disease. Given his worsening fluid status, was referred here by the cardiology office for probable admission. REVIEW OF SYSTEMS: A total of 10 review of systems was obtained and negative except as stated above in the HPI. PAST MEDICAL HISTORY: As noted above MEDICATIONS: Reviewed home medications include aspirin and Plavix SOCIAL HISTORY: Lives at home in his apartment by himself PHYSICAL EXAM: GENERAL: alert and oriented in no acute distress on stretcher Head: normocephalic and atraumatic EYES: No injection, discharge or icterus. NECK: Trachea midline. LUNGS: Airway patent. No retractions. Breath sounds with some crackles and diminished lung bases HEART: Regular rate and rhythm. No chest wall tenderness with a left upper chest AICD ABDOMEN: Soft and non-tender, without guarding or rebound. SKIN: Acyanotic, warm, dry, with scattered bruising on the left upper arm as well as in the right upper arm a fistula without significant tenderness. EXTREMITIES: Without tenderness with some trace bilateral pedal edema. NEUROLOGICAL: No focal deficits. No aphasia. No facial droop or slurred speech. EK bpm atrially sensed ventricularly paced rhythm without PVC. QTC 508. Paced intraventricular conduction delay is noted. Similar to previous and March of this year slightly decreased heart rate. CONTINUOUS CARDIAC MONITORING: was ordered and showed a heart rate of 60s to 80s bpm in ventricular paced rhythm Patient's laboratory studies and imaging reviewed. Differential includes Reactive airway disease, pneumonia, pneumothorax, COPD, CHF, infections, cardiac ischemia, pulmonary embolism, musculoskeletal, gastrointestinal, as well as other pathologies. IMPRESSION/MEDICAL DECISION MAKING: Patient received escalating doses of IV Lasix last several days in the [facility]. More shortness of breath particularly with exertion. Denies pain. Denies fever. Doubt this is infectious. X-ray with evidence of fluid overload. CKD stable compared to previous. Complains a little bit of neck discomfort given some Tylenol. I doubt meningitis. I doubt a significant neck infection. I doubt ACS and lower suspicion for PE. BNP significantly elevated but troponin is not elevated. Believe this is exacerbation underlying CHF. Given a dose of IV Bumex. Will consult the hospitalist for further monitored inpatient diuresis given his poor response thus far with aggressive outpatient management. Patient was in agreement with this plan. DIAGNOSIS: CHF exacerbation, dyspnea on exertion DISPOSITION: Hospitalist will evaluate Patient was agreeable with this plan. Past Med/Surg History Medical History AV fistula RIGHT UPPER ARM> NOT WORKING> REASON FOR PROCEDURE CAD (coronary artery disease) Chronic RCA occlusion; s/p three MARY 11/06/19 to LAD; residual 40% OM2 stenosis Chronic congestive heart failure 02/2020 [facility] - SOB and fluid around heart and lungs - had pacer placed. Chronic kidney disease, stage V no diaylsis currently. will see Dr Handy in August 2020. COPD with emphysema History of COVID-19 Hx of pulmonary edema "flash" during endo/colon 02/2020 [facility]. Hyperlipidemia Hypertension Hypokalemia Hyponatremia CHRONIC Iron deficiency anemia REASON FOR COLONOSCOPY/EGD 02/2020 Ischemic cardiomyopathy EJECTION FRACTION 30-34% Left bundle branch block Lung nodule monitoring Nocturnal hypoxemia due to emphysema placed on CPAP, no home oxygen currently. Pacemaker placed 02/2020 [facility]. last checked JUL 2020> FOLLOWS IRENE BUSBY Peripheral vascular disease WITH BL CAROTID BRUITS- RIGHT AND LEFT ICA 50-69% PER 08/2020 CAROTID DOPPLER SFA OCCLUSIONS SMA stenosis Surgical History Amputation of fifth toe of right foot 2014 H/O vascular surgery RIGHT FEM-POP BYBASS in 2014, AORTOBIFEMORAL BYPASS IN 2003, PRIOR RIGHT ILIOFEMORAL BYPASS IN 1999 (PATIENT STATE HE HAS HAD 4 VASCULAR SURGERIES) History of angioplasty Right LE approx 2014 History of cardiac cath S/P PCI TO THE PROXIMAL AND MID LAD WITH 3 DRUG-ELUTING STENTS NOVEMBER 06, 2019. RESIDUAL 40% 2ND OBTUSE MARGINAL STENOSIS. History of colonoscopy 02/2020 History of esophagogastroduodenoscopy (EGD) History of heart artery stent x3 Nov [address] [facility] Busby. S/P cardiac pacemaker procedure 02/2020 [facility] Family History Other No family history of adverse response to anesthesia Social History Smoking Status: Former smoker packs per day: 2; Years Smoked: 45; Cigarettes Per Day: 10-15; Second Hand Exposure: No; Do You Dip or Chew Tobacco: No; Tobacco Cessation Education Requested by Patient: No Hx Alcohol Use: Yes Alcohol type: beer Hx Substance Use: No Preferred Language: Swedish Communication Ability: Effective Access Liaison Required: No Beliefs That Will Affect Care: None marital status: Single Current Living Situation: Alone How many Children do You have: 0 Other Information That Helps Us Care for You: No Feels Safe at Home: Yes Safety Concerns: Feels Safe At This Time Assistive Devices: CPAP Assistive Devices Comment: Pt uses CPAP at night during sleep Allergies Allergies Allergy/AdvReac Type Severity Reaction Status Date / Time No Known Allergies Allergy Unknown Verified 06/23/21 13:20 Home Meds Home Medications Medication Instructions Recorded Confirmed aspirin 81 mg tablet,delayed 81 mg PO QAM 11/03/19 06/23/21 release atorvastatin 80 mg tablet 80 mg PO HS 11/30/19 06/23/21 cholecalciferol (vitamin D3) 50 2,000 unit PO QAM 12/24/19 06/23/21 mcg (2,000 unit) chewable tablet ferrous sulfate 325 mg (65 mg 325 mg PO QAM 02/16/20 06/23/21 iron) tablet (iron) hydralazine 50 mg tablet 50 mg PO TID 05/10/20 06/23/21 pantoprazole 40 mg tablet,delayed 40 mg PO QAM 05/10/20 06/23/21 release losartan 25 mg tablet 25 mg PO QAM 07/13/20 06/23/21 vit C 250 mg-vit E 90 mg-zinc 40 1 tab PO BID 07/13/20 06/23/21 mg-copper 1 [id number] capsule (PreserVision AREDS-2) acetaminophen 325 mg tablet 650 mg PO QID PRN 01/22/21 06/23/21 (Tylenol) clopidogrel 75 mg tablet (Plavix) 75 mg PO QAM 01/22/21 06/23/21 furosemide 10 mg/mL injection 80 mg IV ONCE 06/23/21 06/23/21 solution furosemide 10 mg/mL injection 100 mg IV ONCE 06/23/21 06/23/21 solution isosorbide mononitrate 30 mg 30 mg PO QAM 06/23/21 06/23/21 tablet,extended release 24 hr metoprolol succinate 50 mg 25 mg PO BID 06/23/21 06/23/21 tablet,extended release 24 hr potassium chloride 10 mEq 10 meq PO QAM 06/23/21 06/23/21 tablet,extended release tiotropium 2.5 mcg-olodaterol 2.5 2 puff INHALATION QAM 06/23/21 06/23/21 mcg/actuation mist for inhalation (Stiolto Respimat) torsemide 20 mg tablet 30 mg PO QAM PRN 06/23/21 06/23/21 Previous Rx's Medication Instructions Recorded Spacer for Inhaler #1 ea 02/21/20 albuterol sulfate 90 mcg/actuation 1 inh INHALATION QID PRN #18 g 02/22/21 aerosol inhaler Results & Data (ED) Vital Signs Vital Signs - 24 hr 06/23/21 11:06 06/23/21 11:45 06/23/21 12:00 Temperature 36.8 C Temperature Source Oral Pulse Rate 77 63 67 Pulse Rate from SpO2 Sensor 67 Pulse Rhythm Regular Respiratory Rate 21 24 24 Respiratory Effort / Characteristics Spontaneous Labored Respiratory Depth Normal Respiratory Pattern Regular Regular Blood Pressure 115/70 117/59 L Blood Pressure Mean 85 78 Pulse Oximetry 95 96 96 Oxygen Delivery Method Room Air Room Air Sepsis Recent Fever Within 48 Hours No Sepsis New/Unexplained Change in Mental Status No Sepsis Action Taken by Nursing No Action Required 06/23/21 12:30 06/23/21 13:00 Temperature Temperature Source Pulse Rate 64 64 Pulse Rate from SpO2 Sensor 64 64 Pulse Rhythm Respiratory Rate 22 21 Respiratory Effort / Characteristics Respiratory Depth Respiratory Pattern Blood Pressure 121/62 125/65 Blood Pressure Mean 81 85 Pulse Oximetry 95 95 Oxygen Delivery Method Sepsis Recent Fever Within 48 Hours Sepsis New/Unexplained Change in Mental Status Sepsis Action Taken by Nursing Laboratory Data Result diagrams: 06/23/21 11:40 06/23/21 11:40 Lab Results 06/23/21 06/23/21 06/23/21 Range/Units 11:40 11:40 11:40 WBC 7.44 (4.8-10.8) K/uL RBC 3.98 L (4.7-6.1) M/uL Hgb 13.3 L (14.0-18.0) g/dL Hct 38.9 L (42-52) % MCV 97.7 (80-100) fL MCH 33.4 (25-34) pg MCHC 34.2 (32-36) g/dL RDW Std Deviation 55.8 H (36.4-46.3) fL RDW Coeff of Monika 15.7 H (11.5-14.5) % Plt Count 237 (130-400) K/uL MPV 10.0 (7.4-10.4) fL Immature Gran % (Auto) 0.7 % Neut % (Auto) 57.0 % Lymph % (Auto) 25.5 % Burnet % (Auto) 9.7 % Eos % (Auto) 6.2 % Baso % (Auto) 0.9 % Neut # (Auto) 4.24 (1.4-6.5) K/uL Lymph # (Auto) 1.90 (1.2-3.4) K/uL Burnet # (Auto) 0.72 H (0.11-0.59) K/uL Eos # (Auto) 0.46 (0-0.5) K/uL Baso # (Auto) 0.07 (0-0.2) K/uL Immature Gran # (Auto) 0.05 H (0.00-0.02) K/uL PT 12.7 H (9.0-12.0) Seconds INR 1.3 H (0.9-1.1) APTT 28.8 (21.0-31.0) Seconds PTT Ratio 1.1 Sodium 131 L (136-145) mmol/L Potassium 4.3 (3.5-5.1) mmol/L Chloride 101 (98-107) mmol/L Carbon Dioxide 19 L (21-32) mmol/L Anion Gap 11.0 (3-11) BUN 56 H (7-18) mg/dl Creatinine 2.99 H (0.6-1.4) mg/dl Est Cr Clr Drug Dosing Not Reportable Est GFR ( Amer) 24.6 ml/min Est GFR (Non-Af Amer) 21.2 ml/min BUN/Creatinine Ratio 18.8 (10-20) Glucose 106 H (70-99) mg/dl Calcium 8.7 (8.5-10.1) mg/dl Magnesium 2.4 (1.8-2.4) mg/dl Total Bilirubin 0.7 (0.2-1) mg/dl AST 18 (15-37) U/L ALT 21 (12-78) U/L Alkaline Phosphatase 142 H (45-117) U/L Troponin I < 0.015 (0-0.045) ng/ml NT-Pro-B Natriuret Pep 18294 H (0-900) pg/ml Total Protein 7.4 (6.4-8.2) gm/dl Albumin 3.6 (3.4-5.0) gm/dl Globulin 3.8 (2.5-4.0) gm/dl Albumin/Globulin Ratio 0.9 (0.9-2) Specimen Hemolysis COVID-19 Eval Order SARS-CoV-2 (PCR) (Negative) 06/23/21 06/23/21 Range/Units 12:00 12:00 WBC (4.8-10.8) K/uL RBC (4.7-6.1) M/uL Hgb (14.0-18.0) g/dL Hct (42-52) % MCV (80-100) fL MCH (25-34) pg MCHC (32-36) g/dL RDW Std Deviation (36.4-46.3) fL RDW Coeff of Monika (11.5-14.5) % Plt Count (130-400) K/uL MPV (7.4-10.4) fL Immature Gran % (Auto) % Neut % (Auto) % Lymph % (Auto) % Burnet % (Auto) % Eos % (Auto) % Baso % (Auto) % Neut # (Auto) (1.4-6.5) K/uL Lymph # (Auto) (1.2-3.4) K/uL Burnet # (Auto) (0.11-0.59) K/uL Eos # (Auto) (0-0.5) K/uL Baso # (Auto) (0-0.2) K/uL Immature Gran # (Auto) (0.00-0.02) K/uL PT (9.0-12.0) Seconds INR (0.9-1.1) APTT (21.0-31.0) Seconds PTT Ratio Sodium (136-145) mmol/L Potassium (3.5-5.1) mmol/L Chloride (98-107) mmol/L Carbon Dioxide (21-32) mmol/L Anion Gap (3-11) BUN (7-18) mg/dl Creatinine (0.6-1.4) mg/dl Est Cr Clr Drug Dosing Est GFR ( Amer) ml/min Est GFR (Non-Af Amer) ml/min BUN/Creatinine Ratio (10-20) Glucose (70-99) mg/dl Calcium (8.5-10.1) mg/dl Magnesium (1.8-2.4) mg/dl Total Bilirubin (0.2-1) mg/dl AST (15-37) U/L ALT (12-78) U/L Alkaline Phosphatase (45-117) U/L Troponin I (0-0.045) ng/ml NT-Pro-B Natriuret Pep (0-900) pg/ml Total Protein (6.4-8.2) gm/dl Albumin (3.4-5.0) gm/dl Globulin (2.5-4.0) gm/dl Albumin/Globulin Ratio (0.9-2) Specimen Hemolysis COVID-19 Eval Order Covid19 at [facility] SARS-CoV-2 (PCR) NEGATIVE (Negative) Administered Medications Discontinued Medications Acetaminophen (Acetaminophen 325 Mg Tab) 650 mg PO NOW STA Stop: 06/23/21 12:20 Last Admin: 06/23/21 12:58 Dose: 650 mg Documented by: [id number] Bumetanide 1 mg/ Syringe 4 mls @ 4 mls/min IV ONE ONE Stop: 06/23/21 12:18 Last Admin: 06/23/21 12:59 Dose: 4 mls/min Documented by: [id number] Bumetanide 3 mg/ Syringe 12 mls @ 4 mls/min IV ONE STA Stop: 06/23/21 13:21 Last Admin: 06/23/21 13:31 Dose: 4 mls/min Documented by: [id number] Metolazone (Metolazone 5 Mg Tablet) 5 mg PO NOW ONE Stop: 06/23/21 16:16 Last Admin: 06/23/21 17:26 Dose: 5 mg Documented by: [id number] Imaging Data Radiologist's Impression: Chest X-Ray 06/23/21 11:31 SINGLE VIEW CHEST CLINICAL HISTORY: Dyspnea. FINDINGS: An AP, portable, upright chest radiograph is compared to study dated 03/21/2021 and correlated with chest CT dated 06/16/2021. A 3-lead cardiac AICD is unchanged in position and partially obscures the left mid chest. The heart is enlarged noting atherosclerotic calcification of the thoracic aorta. There is pulmonary vascular congestion. Emphysema and chronic interstitial thickening is similar to previous. There are small pleural effusions with bibasilar consolidation. No pneumothorax is seen. The skeletal structures are osteopenic. The bony thorax is grossly intact. IMPRESSION: 1. Cardiomegaly and AICD with evidence of congestive failure. 2. Emphysema. 3. Small pleural effusions with bibasilar consolidation. ACT 112: Negative or not required by law. Electronically signed by: Tyler Gresham M.D. 06/23/2021 12:03 PM Discharge Plan Visit Data Chief Complaint: Respiratory Problems Stated Complaint: GAINED 8LBS LAST WK,FLUID AROUND LUNGS,SOB ED Provider: Dago Dennis Discharge Problem: CHF (congestive heart failure), Chronic kidney disease, stage V, DAVIS (dyspnea on exertion) Patient Disposition: Admitted As Inpatient Discharge Instructions Interventions: ED Discharge Assessment Last Done: 06/23/21 14:24 Discharge Problem: CHF (congestive heart failure) Qualifiers: Heart failure type: unspecified Heart failure chronicity: acute on chronic Qualified Code(s): I50.9 - Heart failure, unspecified
[2021-06-23 11:51] LABS: Basophils # (auto) 0.07 K/uL (0-0.2); Basophils % (auto) 0.9 %; Eosinophils # (auto) 0.46 K/uL (0-0.5); Eosinophils % (auto) 6.2 %; Hematocrit (blood only) 38.9 % (42-52); Hemoglobin 13.3 g/dL (14.0-18.0); Immature Granulocytes # (auto) 0.05 K/uL (0.00-0.02); Immature Granulocytes % (auto) 0.7 %; Lymphocytes % (auto) 25.5 %; Mean Corpuscular Hemoglobin 33.4 pg (25-34); Mean Corpuscular Hgb Conc 34.2 g/dL (32-36); Mean Corpuscular Volume 97.7 fL (80-100); Monocytes # (auto) 0.72 K/uL (0.11-0.59); Monocytes % (auto) 9.7 %; Neutrophils # (auto) 4.24 K/uL (1.4-6.5); Platelet Count 237 K/uL (130-400); RDW Coefficient of Variation 15.7 % (11.5-14.5); RDW Standard Deviation 55.8 fL (36.4-46.3); Red Blood Count 3.98 M/uL (4.7-6.1); White Blood Count 7.44 K/uL (4.8-10.8)
--- NOTE | 2021-06-23 12:04 | XRay Report ---
SINGLE VIEW CHEST CLINICAL HISTORY: Dyspnea. FINDINGS: An AP, portable, upright chest radiograph is compared to study dated 03/21/2021 and correlat ed with chest CT dated 06/16/2021. A 3-lead cardiac AICD is unchanged in position and partially obscur es the left mid chest. The heart is enlarged noting atherosclerotic calcification of the thoracic aor ta. There is pulmonary vascular congestion. Emphysema and chronic interstitial thickening is similar to previous. There are small pleural effusions with bibasilar consolidation. No pneumothorax is seen. The skeletal structures are osteopenic. The bony thorax is grossly intact. IMPRESSION: 1. Cardiomegaly and AICD with evidence of congestive failure. 2. Emphysema. 3. Small pleural effusions with bibasilar consolidation. ACT 112: Negative or not required by law. Electronically signed by: Tyler Gresham M.D. 06/23/2021 12:03 PM
[2021-06-23 12:08] LABS: INR 1.3 (0.9-1.1); Partial Thromboplastin Ratio 1.1; Partial Thromboplastin Time 28.8 Seconds (21.0-31.0); Prothrombin Time 12.7 Seconds (9.0-12.0)
[2021-06-23 12:15] LABS: Alanine Aminotransferase 21 U/L (12-78); Albumin Globulin Ratio 0.9 (0.9-2); Albumin Level 3.6 gm/dl (3.4-5.0); Alkaline Phosphatase 142 U/L (45-117); Aspartate Aminotransferase 18 U/L (15-37); BUN Creatinine Ratio 18.8 (10-20); Bilirubin,Total 0.7 mg/dl (0.2-1); Blood Urea Nitrogen 56 mg/dl (7-18); Calcium 8.7 mg/dl (8.5-10.1); Carbon Dioxide 19 mmol/L (21-32); Chloride 101 mmol/L (98-107); Est GFR (African American) 24.6 ml/min; Est GFR (Non-African American) 21.2 ml/min; Globulin 3.8 gm/dl (2.5-4.0); Glucose 106 mg/dl (70-99); Magnesium 2.4 mg/dl (1.8-2.4); NT Pro B Type Natriuretic Pept 29055 pg/ml (0-900); Potassium 4.3 mmol/L (3.5-5.1); Sodium 131 mmol/L (136-145); Total Protein 7.4 gm/dl (6.4-8.2); Troponin I < 0.015 ng/ml (0-0.045)
[2021-06-23] MEDS ORDERED: BUMETANIDE 1 MG in SYRINGE 0 ML IV ONE (12:17)
[2021-06-23] MEDS ORDERED: ACETAMINOPHEN 325 MG TAB PO STA (12:19)
--- NOTE | 2021-06-23 13:13 | History & Physical Report ---
Date of Service June 23, 2021 Assessment & Plan (1) Hypervolemia associated with renal insufficiency: Plan: Previously diuresed well with Bumex 4mg IV on last admission however no significant response to 4mg IV given in ER so far Add metolazone 5mg PO daily (first dose now) US renal without urinary retention Strict I&Os Daily weights Fluid restrict 1500ml, low sodium, dialysis renal diet Given need for accurate urine output measurements will place kelley catheter Consult nephrology as low urine output without obstruction concerning he will need dialysis, restrict right arm (2) Acute on chronic HFrEF (heart failure with reduced ejection fraction): Plan: As above (3) Sleep apnea: Plan: CPAP HS (4) CAD (coronary artery disease): Plan: Continue ASA, clopidogrel, metoprolol succinate, losartan, ISMN, atorvastatin (5) Peripheral vascular disease: Plan: Continue ASA, Clopidogrel, atorvastatin (6) Hypertension: Plan: Continue outpatient anti-hypertensives and monitor BP with increased diuretics as above (7) Ischemic cardiomyopathy: Plan: Continue metoprolol succinate and losartan (8) Chronic kidney disease, stage V: Plan: Consult nephrology, close to baseline but with concerningly low output after 4mg IV bumex. (9) Anemia in chronic kidney disease: Plan: At baseline Plan: VTE Prophylaxis - heparin 5000 units SQ BID Disposition - admit to med/tele History of Present Illness Chief Complaint: Shortness of breath Primary Care Provider: Nixon Pollack MD Keron Fall is a 61 year old male with chronic kidney disease who presents to the ER on the advice of his feed adviser due to shortness of breath progressively getting worse over the last 2 weeks. 10 days ago he started taking twice his torsemide without significant effect. Two bishop ago he was given Lasix 80mg IV in his cardiologists office then yesterday Lasix 100mg IV. Due to lack of response he was referred to the ER for ongoing care. Associated weight gain 7-10lb. He denies any recent salt increase. Chronic orthopnea no worse than usual (uses 2 pillows at night), no paroxysmal nocturnal dyspnea, palpitations leg swelling or chest pain. He already has a right AV graft placed in September 2020 but is yet to have any hemodialysis. He also has chronic COPD. Taking inhalers as prescribed. No wheezing, cough, fever or chills. In the ER he was given Bumex 1mg IV without any urine output. Creatinine 2.99, baseline 2.5-3.0. Allergies Allergy/AdvReac Type Severity Reaction Status Date / Time No Known Allergies Allergy Unknown Verified 06/23/21 13:20 Home Medications Medication Instructions Recorded Confirmed Type aspirin 81 mg tablet,delayed 81 mg PO QAM 11/03/19 06/23/21 History release atorvastatin 80 mg tablet 80 mg PO HS 11/30/19 06/23/21 History cholecalciferol (vitamin D3) 50 2,000 unit PO QAM 12/24/19 06/23/21 History mcg (2,000 unit) chewable tablet ferrous sulfate 325 mg (65 mg 325 mg PO QAM 02/16/20 06/23/21 History iron) tablet (iron) Spacer for Inhaler #1 ea 02/21/20 06/09/21 Rx hydralazine 50 mg tablet 50 mg PO TID 05/10/20 06/23/21 History pantoprazole 40 mg tablet,delayed 40 mg PO QAM 05/10/20 06/23/21 History release losartan 25 mg tablet 25 mg PO QAM 07/13/20 06/23/21 History vit C 250 mg-vit E 90 mg-zinc 40 1 tab PO BID 07/13/20 06/23/21 History mg-copper 1 [id number] capsule (PreserVision AREDS-2) acetaminophen 325 mg tablet 650 mg PO QID PRN 01/22/21 06/23/21 History (Tylenol) clopidogrel 75 mg tablet (Plavix) 75 mg PO QAM 01/22/21 06/23/21 History albuterol sulfate 90 mcg/actuation 1 inh INHALATION QID PRN #18 g 02/22/21 06/23/21 Rx aerosol inhaler furosemide 10 mg/mL injection 80 mg IV ONCE 06/23/21 06/23/21 History solution furosemide 10 mg/mL injection 100 mg IV ONCE 06/23/21 06/23/21 History solution isosorbide mononitrate 30 mg 30 mg PO QAM 06/23/21 06/23/21 History tablet,extended release 24 hr metoprolol succinate 50 mg 25 mg PO BID 06/23/21 06/23/21 History tablet,extended release 24 hr potassium chloride 10 mEq 10 meq PO QAM 06/23/21 06/23/21 History tablet,extended release tiotropium 2.5 mcg-olodaterol 2.5 2 puff INHALATION QAM 06/23/21 06/23/21 History mcg/actuation mist for inhalation (Stiolto Respimat) torsemide 20 mg tablet 30 mg PO QAM PRN 06/23/21 06/23/21 History Past Med/Surg History Medical History AV fistula RIGHT UPPER ARM> NOT WORKING> REASON FOR PROCEDURE CAD (coronary artery disease) Chronic RCA occlusion; s/p three MARY 11/06/19 to LAD; residual 40% OM2 stenosis Chronic congestive heart failure 02/2020 [facility] - SOB and fluid around heart and lungs - had pacer placed. Chronic kidney disease, stage V no diaylsis currently. will see Dr Handy in August 2020. COPD with emphysema History of COVID-19 Hx of pulmonary edema "flash" during endo/colon 02/2020 [facility]. Hyperlipidemia Hypertension Hypokalemia Hyponatremia CHRONIC Iron deficiency anemia REASON FOR COLONOSCOPY/EGD 02/2020 Ischemic cardiomyopathy EJECTION FRACTION 30-34% Left bundle branch block Lung nodule monitoring Nocturnal hypoxemia due to emphysema placed on CPAP, no home oxygen currently. Pacemaker placed 02/2020 [facility]. last checked JUL 2020> FOLLOWS IRENE DUNCAN Peripheral vascular disease WITH BL CAROTID BRUITS- RIGHT AND LEFT ICA 50-69% PER 08/2020 CAROTID DOPPLER SFA OCCLUSIONS SMA stenosis Surgical History Amputation of fifth toe of right foot 2014 H/O vascular surgery RIGHT FEM-POP BYBASS in 2014, AORTOBIFEMORAL BYPASS IN 2003, PRIOR RIGHT ILIOFEMORAL BYPASS IN 1999 (PATIENT STATE HE HAS HAD 4 VASCULAR SURGERIES) History of angioplasty Right LE approx 2014 History of cardiac cath S/P PCI TO THE PROXIMAL AND MID LAD WITH 3 DRUG-ELUTING STENTS NOVEMBER 06, 2019. RESIDUAL 40% 2ND OBTUSE MARGINAL STENOSIS. History of colonoscopy 02/2020 History of esophagogastroduodenoscopy (EGD) History of heart artery stent x3 Nov [address] [facility] Duncan. S/P cardiac pacemaker procedure 02/2020 [facility] Family History Other No family history of adverse response to anesthesia Social History Smoking Status: Former smoker packs per day: 2; Years Smoked: 45; Cigarettes Per Day: 10-15; Second Hand Exposure: No; Do You Dip or Chew Tobacco: No; Tobacco Cessation Education Requested by Patient: No Hx Alcohol Use: Yes Alcohol type: beer Hx Substance Use: No Preferred Language: Latvian Communication Ability: Effective Upholstery Cleaner Required: No Beliefs That Will Affect Care: None marital status: Single Current Living Situation: Alone How many Children do You have: 0 Other Information That Helps Us Care for You: No Feels Safe at Home: Yes Safety Concerns: Feels Safe At This Time Assistive Devices: CPAP Assistive Devices Comment: Pt uses CPAP at night during sleep Review of Systems Review of Systems: All systems reviewed & are unremarkable except as noted in HPI & below Physical Exam Constitutional: WD/WN, vitals as above no acute distress Eyes: + anicteric sclerae; normal pupil size ENMT: external ear and nose normal, oropharynx normal Neck: trachea midline, no thyromegaly Respiratory: normal respiratory effort; no respiratory distress Auscult ation: + crackles (bibasal); no diminished lung sounds and no wheezes Cardiovascular: Rate/Rhythm: regular rate and regular rhythm Heart Sounds: + murmur (systoloc 2/6 LUSB) Vessels: no JVD Extremities: normal capillary refill and + pedal edema (trace pre-tibial); no calf tenderness Gastrointestinal (Abdomen): normal bowel sounds, soft, nontender, no hepatosplenomegaly Musculoskeletal: no cyanosis or clubbing, extremities motor strength 5/5 Skin: no rashes, warm and dry Neurologic: moves all extremities and awake; not confused Psychiatric: A+Ox3, euthymic affect Genitourinary: no CVA tenderness Results & Data Results & Data ([facility]) Vital Signs (Past 12 Hours) Vital Signs Temp Pulse Resp BP Pulse Ox 06/23/21 11:45 63 24 96 06/23/21 11:06 36.8 C 77 21 115/70 95 Diagnostic Findings SINGLE VIEW CHEST IMPRESSION: 1. Cardiomegaly and AICD with evidence of congestive failure. 2. Emphysema. 3. Small pleural effusions with bibasilar consolidation. Medications Administered ER Medications Given: Bumex 1mg IV Acetaminophen 650mg PO ECG Indication: SOB/dyspnea Rate (beats per minute): 73 Findings: + paced rhythm (atrial-sensed, ventricular paced) Comparison ECG Date: from (March 16, 2021) Change: no significant change Code Status & VTE Plan Code Status Full VTE Prophylaxis Plan VTE Prophylaxis will be ordered: Yes PG Care Time/CCT Total # of Minutes Spent Total Time Spent with Patient: Total time spent is greater than 50% in coordination of care (as documented) at patient's floor/unit and/or counseling patient: Coding Level of Care Code 28070 Initial Inpt Care Lvl 3 Diagnoses Hypervolemia associated with renal insufficiency E87.70; N28.9 Acute on chronic HFrEF (heart failure with reduced ejection fraction) I50.23 Sleep apnea G47.30 CAD (coronary artery disease) I25.10 Coronary Disease-Associated Artery/Lesion type: [place] artery [place] vs. transplanted heart: [place] heart Associated angina: without angina Peripheral vascular disease I73.9 Hypertension I10 Hypertension type: essential hypertension Ischemic cardiomyopathy I25.5 Chronic kidney disease, stage V N18.5 Anemia in chronic kidney disease N18.9; D63.1 (1) CAD (coronary artery disease) Coronary Disease-Associated Artery/Lesion type: [place] artery [place] vs. transplanted heart: [place] heart Associated angina: without angina Qualified Code(s): I25.10 - Atherosclerotic heart disease of [place] coronary artery without angina pectoris (2) Hypertension Hypertension type: essential hypertension Qualified Code(s): I10 - Essential (primary) hypertension
[2021-06-23] MEDS ORDERED: BUMETANIDE 3 MG in SYRINGE 0 ML IV STA (13:19)
--- NOTE | 2021-06-23 14:00 | Cardiology Consultation ---
Date of Consultation June 23, 2021 Assessment & Plan (1) Acute on chronic HFrEF (heart failure with reduced ejection fraction): (2) Hypervolemia associated with renal insufficiency: (3) DAVIS (dyspnea on exertion): (4) COPD with emphysema: (5) Chronic kidney disease, stage V: (6) Peripheral vascular disease: (7) Ischemic cardiomyopathy: (8) ICD (implantable cardioverter-defibrillator) in place: The patient has essentially failed outpatient treatment. He is complex because he has multiple organ failure including an ischemic cardiomyopathy with severe LV dysfunction, COPD from years of cigarette smoking and chronic stage IV kidney disease. He is not retaining much fluid in his lower extremities but he does have a fluid wave in his abdomen. I would recommend that we update his echocardiogram since he has had a change in his clinical status. I would also recommend an abdominal ultrasound to rule out ascites as an area third spacing and volume overload. He is followed by nephrology and I think it would be good to have their help in the management of diuretics. History of Present Illness History of Present Illness This is a complex 61-year-old male patient with the past history as outlined be low. This patient has been seen in our clinic acutely for decompensated systolic heart failure and has been given IV diuretics as an outpatient with out success. He found no improvement after additional IV diuretics given yesterday at our clinic and now is referred for inpatient hospital care. His last echocardiogram completed in December of this year revealed an estimated left ventricular ejection fraction of around 30 to 35% along with moderate aortic regurgitation and moderate secondary mitral regurgitation. The patient's last hospital admission appears to have been in March 2021 when he presented with decompensated heart failure which responded readily to IV Bumex. The patient also has stage IV chronic kidney disease and is followed by OR nephrology. Past Medical and Surgical History: 1.ASCVD, ischemic cardiomyopathy, ejection fraction 30-34% 1.Chronic RCA occlusion 2.Status post PCI to the proximal and mid LAD with 3 drug-eluting stents November 06, 2019. 3.Residual 40% 2nd obtuse marginal stenosis. 4.[place] Heart Association Class III dyspnea 5.Left bundle branch block 6.Status post March 02, 2020 His bundle rate responsive implantable defibrillator 2.Valvular heart disease, mixed aortic valve disease, mitral regurgitation 3.Chronic intermittent hyponatremia chronic alcohol use/abuse 4.Emphysema. Pulmonary nodule, followed by [facility] Pulmonary Medicine 5.BRYAN, CPAP therapy 6.Peripheral vascular disease. Moderate bilateral internal carotid artery stenosis. Bilateral SFA occlusions. Presumed right fem-pop bypass, right 5th toe amputation, aortobifemoral bypass in 2004, prior right iliofemoral bypass. Right renal artery stenosis. SMA stenosis 7.Stage 4 chronic kidney disease felt to be secondary to renovascular disease, malfunctioning right kidney, severe chronic hydronephrosis with ureteral stricture. 1.Status post right upper extremity cephalic vein antecubital arteriovenous fistula placement by Dr. Wilton Zayas 8.Iron deficiency anemia 1.EGD on February 19, 2020 revealed gastritis, a single nonbleeding angioectasia in the stomach that was treated with argon plasma coagulation clips (MR conditional), and a single duodenal polyp that was resected and retrieved. H pylori discovered and treated 2.Colonoscopy revealed nonbleeding internal hemorrhoids and polyps, two 6 mm polyps in the cecum and two 6 mm polyps in the descending colon that were resected in retrieved. 9.Hypertension 10.Dyslipidemia 11.History of Tobacco abuse, quitting on November 02, 2020 12.Impotence 13.Osteoarthritis Allergies Allergy/AdvReac Type Severity Reaction Status Date / Time No Known Allergies Allergy Unknown Verified 06/23/21 13:20 Home Medications Medication Instructions Recorded Confirmed Type aspirin 81 mg tablet,delayed 81 mg PO QAM 11/03/19 06/23/21 History release atorvastatin 80 mg tablet 80 mg PO HS 11/30/19 06/23/21 History cholecalciferol (vitamin D3) 50 2,000 unit PO QAM 12/24/19 06/23/21 History mcg (2,000 unit) chewable tablet ferrous sulfate 325 mg (65 mg 325 mg PO QAM 02/16/20 06/23/21 History iron) tablet (iron) Spacer for Inhaler #1 ea 02/21/20 06/09/21 Rx hydralazine 50 mg tablet 50 mg PO TID 05/10/20 06/23/21 History pantoprazole 40 mg tablet,delayed 40 mg PO QAM 05/10/20 06/23/21 History release losartan 25 mg tablet 25 mg PO QAM 07/13/20 06/23/21 History vit C 250 mg-vit E 90 mg-zinc 40 1 tab PO BID 07/13/20 06/23/21 History mg-copper 1 [id number] capsule (PreserVision AREDS-2) acetaminophen 325 mg tablet 650 mg PO QID PRN 01/22/21 06/23/21 History (Tylenol) clopidogrel 75 mg tablet (Plavix) 75 mg PO QAM 01/22/21 06/23/21 History albuterol sulfate 90 mcg/actuation 1 inh INHALATION QID PRN #18 g 02/22/21 06/23/21 Rx aerosol inhaler furosemide 10 mg/mL injection 80 mg IV ONCE 06/23/21 06/23/21 History solution furosemide 10 mg/mL injection 100 mg IV ONCE 06/23/21 06/23/21 History solution isosorbide mononitrate 30 mg 30 mg PO QAM 06/23/21 06/23/21 History tablet,extended release 24 hr metoprolol succinate 50 mg 25 mg PO BID 06/23/21 06/23/21 History tablet,extended release 24 hr potassium chloride 10 mEq 10 meq PO QAM 06/23/21 06/23/21 History tablet,extended release tiotropium 2.5 mcg-olodaterol 2.5 2 puff INHALATION QAM 06/23/21 06/23/21 History mcg/actuation mist for inhalation (Stiolto Respimat) torsemide 20 mg tablet 30 mg PO QAM PRN 06/23/21 06/23/21 History Patient History Medical History AV fistula RIGHT UPPER ARM> NOT WORKING> REASON FOR PROCEDURE CAD (coronary artery disease) Chronic RCA occlusion; s/p three MARY 11/06/19 to LAD; residual 40% OM2 stenosis Chronic congestive heart failure 02/2020 [facility] - SOB and fluid around heart and lungs - had pacer placed. Chronic kidney disease, stage V no diaylsis currently. will see Dr Handy in August 2020. COPD with emphysema History of COVID-19 Hx of pulmonary edema "flash" during endo/colon 02/2020 [facility]. Hyperlipidemia Hypertension Hypokalemia Hyponatremia CHRONIC Iron deficiency anemia REASON FOR COLONOSCOPY/EGD 02/2020 Ischemic cardiomyopathy EJECTION FRACTION 30-34% Left bundle branch block Lung nodule monitoring Nocturnal hypoxemia due to emphysema placed on CPAP, no home oxygen currently. Pacemaker placed 02/2020 [facility]. last checked JUL 2020> FOLLOWS IRENE QI Peripheral vascular disease WITH BL CAROTID BRUITS- RIGHT AND LEFT ICA 50-69% PER 08/2020 CAROTID DOPPLER SFA OCCLUSIONS SMA stenosis Surgical History Amputation of fifth toe of right foot 2014 H/O vascular surgery RIGHT FEM-POP BYBASS in 2014, AORTOBIFEMORAL BYPASS IN 2004, PRIOR RIGHT ILIOFEMORAL BYPASS IN 1999 (PATIENT STATE HE HAS HAD 4 VASCULAR SURGERIES) History of angioplasty Right LE approx 2014 History of cardiac cath S/P PCI TO THE PROXIMAL AND MID LAD WITH 3 DRUG-ELUTING STENTS NOVEMBER 06, 2019. RESIDUAL 40% 2ND OBTUSE MARGINAL STENOSIS. History of colonoscopy 02/2020 History of esophagogastroduodenoscopy (EGD) History of heart artery stent x3 Nov [address] [facility] Duncan. S/P cardiac pacemaker procedure 02/2020 [facility] Family History Other No family history of adverse response to anesthesia Social History Smoking Status: Former smoker packs per day: 2; Years Smoked: 45; Cigarettes Per Day: 10-15; Second Hand Exposure: No; Do You Dip or Chew Tobacco: No; Tobacco Cessation Education Requested by Patient: No Hx Alcohol Use: Yes Alcohol type: beer Hx Substance Use: No Preferred Language: Iranian Communication Ability: Effective Clinical Researcher Required: No Beliefs That Will Affect Care: None marital status: Single Current Living Situation: Alone How many Children do You have: 0 Other Information That Helps Us Care for You: No Feels Safe at Home: Yes Safety Concerns: Feels Safe At This Time Assistive Devices: CPAP Assistive Devices Comment: Pt uses CPAP at night during sleep Review of Systems Review of Systems: Review of Systems: See HPI for pertinent positives. All other 10 point review of systems are negative. Physical Exam Physical Exam: General: no acute distress and stated age Head: normocephalic, no masses, lesions, tenderness or abnormalities Eyes: conjunctiva are pink and non-injected, sclera clear Neck: supple, no adenopathy, no bruits, normal jugular venous pulse, no hepatojugular reflux Chest: normal shape and normal respiratory effort Lungs: clear to auscultation and percussion Cardiac Exam: - regular rate & rhythm, no murmurs gallops or rubs - normal S1, normal S2 Pulses: 2(+) throughout Abdomen: The abdomen is distended with a fluid wave. Musculoskeletal: no gait disturbance, no joint inflammation, no deforming arthritis Extremities: no edema and no cyanosis Neuro: grossly normal exam Results & Data ([facility]) Vital Signs (Past 12 Hours) Vital Signs Temp Pulse Resp BP Pulse Ox 06/23/21 11:45 63 24 96 06/23/21 11:06 36.8 C 77 21 115/70 95 Laboratory Results Laboratory Results - last 24 hr 06/23/21 06/23/21 06/23/21 11:40 11:40 11:40 WBC 7.44 RBC 3.98 L Hgb 13.3 L Hct 38.9 L MCV 97.7 MCH 33.4 MCHC 34.2 RDW Std Deviation 55.8 H RDW Coeff of Monika 15.7 H Plt Count 237 MPV 10.0 Immature Gran % (Auto) 0.7 Neut % (Auto) 57.0 Lymph % (Auto) 25.5 [place] % (Auto) 9.7 Eos % (Auto) 6.2 Baso % (Auto) 0.9 Neut # (Auto) 4.24 Lymph # (Auto) 1.90 [place] # (Auto) 0.72 H Eos # (Auto) 0.46 Baso # (Auto) 0.07 Immature Gran # (Auto) 0.05 H PT 12.7 H INR 1.3 H APTT 28.8 PTT Ratio 1.1 Sodium 131 L Potassium 4.3 Chloride 101 Carbon Dioxide 19 L Anion Gap 11.0 BUN 56 H Creatinine 2.99 H Est Cr Clr Drug Dosing Not Reportable Est GFR ( Amer) 24.6 Est GFR (Non-Af Amer) 21.2 BUN/Creatinine Ratio 18.8 Glucose 106 H Calcium 8.7 Magnesium 2.4 Total Bilirubin 0.7 AST 18 ALT 21 Alkaline Phosphatase 142 H Troponin I < 0.015 NT-Pro-B Natriuret Pep 06574 H Total Protein 7.4 Albumin 3.6 Globulin 3.8 Albumin/Globulin Ratio 0.9 Specimen Hemolysis COVID-19 Eval Order SARS-CoV-2 (PCR) 06/23/21 06/23/21 12:00 12:00 WBC RBC Hgb Hct MCV MCH MCHC RDW Std Deviation RDW Coeff of Monika Plt Count MPV Immature Gran % (Auto) Neut % (Auto) Lymph % (Auto) [place] % (Auto) Eos % (Auto) Baso % (Auto) Neut # (Auto) Lymph # (Auto) [place] # (Auto) Eos # (Auto) Baso # (Auto) Immature Gran # (Auto) PT INR APTT PTT Ratio Sodium Potassium Chloride Carbon Dioxide Anion Gap BUN Creatinine Est Cr Clr Drug Dosing Est GFR ( Amer) Est GFR (Non-Af Amer) BUN/Creatinine Ratio Glucose Calcium Magnesium Total Bilirubin AST ALT Alkaline Phosphatase Troponin I NT-Pro-B Natriuret Pep Total Protein Albumin Globulin Albumin/Globulin Ratio Specimen Hemolysis COVID-19 Eval Order Covid19 at [facility] SARS-CoV-2 (PCR) NEGATIVE Medications Administered Medications aspirin 81 mg tablet,delayed release 81 mg PO QAM 11/03/19 [History Confirmed 06/23/21] atorvastatin 80 mg tablet 80 mg PO HS 11/30/19 [History Confirmed 06/23/21] cholecalciferol (vitamin D3) 50 mcg (2,000 unit) chewable tablet 2,000 unit PO QAM 12/24/19 [History Confirmed 06/23/21] ferrous sulfate 325 mg (65 mg iron) tablet (iron) 325 mg PO QAM 02/16/20 [History Confirmed 06/23/21] Spacer for Inhaler #1 ea 02/21/20 [Rx Confirmed 06/09/21] hydralazine 50 mg tablet 50 mg PO TID 05/10/20 [History Confirmed 06/23/21] pantoprazole 40 mg tablet,delayed release 40 mg PO QAM 05/10/20 [History Confirmed 06/23/21] losartan 25 mg tablet 25 mg PO QAM 07/13/20 [History Confirmed 06/23/21] vit C 250 mg-vit E 90 mg-zinc 40 mg-copper 1 [id number] capsule (PreserVision AREDS-2) 1 tab PO BID 07/13/20 [History Confirmed 06/23/21] acetaminophen 325 mg tablet (Tylenol) 650 mg PO QID PRN 01/22/21 [History Confirmed 06/23/21] clopidogrel 75 mg tablet (Plavix) 75 mg PO QAM 01/22/21 [History Confirmed 06/23/21] albuterol sulfate 90 mcg/actuation aerosol inhaler 1 inh INHALATION QID PRN #18 g 02/22/21 [Rx Confirmed 06/23/21] furosemide 10 mg/mL injection solution 80 mg IV ONCE 06/23/21 [History Confirmed 06/23/21] furosemide 10 mg/mL injection solution 100 mg IV ONCE 06/23/21 [History Confirmed 06/23/21] isosorbide mononitrate 30 mg tablet,extended release 24 hr 30 mg PO QAM 06/23/21 [History Confirmed 06/23/21] metoprolol succinate 50 mg tablet,extended release 24 hr 25 mg PO BID 06/23/21 [History Confirmed 06/23/21] potassium chloride 10 mEq tablet,extended release 10 meq PO QAM 06/23/21 [History Confirmed 06/23/21] tiotropium 2.5 mcg-olodaterol 2.5 mcg/actuation mist for inhalation (Stiolto Respimat) 2 puff INHALATION QAM 06/23/21 [History Confirmed 06/23/21] torsemide 20 mg tablet 30 mg PO QAM PRN 06/23/21 [History Confirmed 06/23/21]
--- NOTE | 2021-06-23 15:08 | Ultrasound Report ---
ULTRASOUND KIDNEYS AND BLADDER CLINICAL HISTORY: Renal insufficiency. COMPARISON STUDY: KUB dated 11/03/2019. TECHNIQUE: Real-time, grayscale, and color flow sonography of the kidneys and bladder is performed. I mages are reviewed in the transverse and longitudinal planes. FINDINGS: Kidneys: The right kidney is atrophic and echogenic consistent with medical renal disease. The left k idfarutn is normal in size and echotexture. The right kidney measures 5.7 cm in length and the left kidn ey measures 10.5 cm in length. There is no hydronephrosis. No shadowing renal calculi are identified. There is no sonographic evidence of contour deforming renal mass lesion. No perinephric fluid is bowen ntified. Bladder: The bladder is largely decompressed. The bladder wall appears thickened and trabeculated sug gesting chronic outlet obstruction. Ureteral jets were not seen. There is trace pelvic ascites. IMPRESSION: 1. The right kidney is atrophic and echogenic. 2. The left kidney is normal in size and echotexture. 3. No hydronephrosis. 4. The appearance of the bladder suggests chronic outlet obstruction. 5. Small volume pelvic ascites. ACT 112: Negative or not required by law. Electronically signed by: Tyler Gresham M.D. 06/23/2021 3:07 PM
--- NOTE | 2021-06-23 15:27 | Ultrasound Report ---
US abdomen ltd ascites CLINICAL HISTORY: ascites COMPARISON STUDY: None. FINDINGS: Real-time sonographic images of the abdomen was performed with member services representative images. A few scattered small pockets of ascites identified which measure less than 100 cc total. There are bilate ral pleural effusions, left greater than right. IMPRESSION: 1. Small amount of scattered ascites. 2. Bilateral pleural effusions. ACT 112: Negative or not required by law. Electronically signed by: Uvaldo Bolaños M.D. 06/23/2021 3:26 PM
[2021-06-23] MEDS ORDERED: ALBUTEROL HFA 8 GM INHALER INH PRN (15:44)
[2021-06-23] MEDS ORDERED: ACETAMINOPHEN 325 MG TAB PO PRN ×2 (15:44)
[2021-06-23] MEDS ORDERED: metOLazone 5 MG TABLET PO ONE (16:15)
[2021-06-23 16:37] LABS: Appearance Urine Clear (Clear); Bilirubin Urine Negative (Negative); Blood Urine Negative (Negative); Color Urine Yellow; Glucose Urine UA Negative (Negative); Ketones Urine Negative (Negative); Leukocyte Esterase Urine Negative (Negative); Nitrite Urine Negative (Negative); Protein Urine Negative (Negative); Specific Gravity Urine 1.008 (1.000-1.030); Urobilinogen Urine Negative (Negative)
--- NOTE | 2021-06-23 18:20 | Nephrology Consultation ---
Date of Consultation June 23, 2021 Assessment & Plan (1) Chronic kidney disease, stage 4 (severe): Baseline creatinine ~2.5 mg/dL. Renovascular disease and CRS. Poor urine output. Keron has been diuretic resistant. Urine sodium requested. Goals of care reviewed. No emergent indication for dialysis but given diuretic resistance potential role has been discussed in detail today. If Keron does not start making urine in response to the Bumex and metolazone that have been given, I would suggest starting a gtt overnight. Medications appropriate for kidney dysfunction. Ding to gravity. Document strict I/O's. Repeat metabolic profile tomorrow AM. (2) Ischemic cardiomyopathy: Cardiology consultation reviewed. TTE pending. Low sodium diet and 1.5 L daily fluid restriction. (3) Hypervolemia associated with renal insufficiency: Trial of continuous diuretic infusion. No emergent indication for [employer]. Keron expressed interest in incremental start PD. (4) Anemia in chronic kidney disease: Chronic, stable. YONNY therapy held for Hgb >12. History of Present Illness Reason for Consultation: CKD, cardiorenal syndrome Requesting Physician: Zheng Woods MD Attending Physician: Zheng Woods MD History of Present Illness Mr. Keron Fall is a 89 year-old male with advanced chronic kidney disease. He follows in the nephrology clinic with Dr. Handy. CKD has been attributed to renovascular disease. A R BC AVG was placed in September 2020 after primary failure of an AVF attempt. Graft was placed by Dr. Zayas. Keron has an atrophic right kidney. He has chronic HFrEF related to an ischemic cardiomyopathy with LVEF ~30%. He was admitted to [facility] in March with decompesnated heart failure. Keron was admitted in January with COVID pneumonia and LINDSAY. The hospitalization was complicated by NSVT. Keron does have an AICD. Medical history also notable for hypertension, PAD, dyslipidemia, BRYAN on CPAP, chronic MILLER, and COPD. Volume status had been controlled with PO torsemide. Over the past 2 weeks, Keron has had fluid retention (weight increase of 7-10 lbs from baseline) with progressive DAVIS and orthopnea. Escalating doses of IV furosemide were provided in the cardiology clinic without response. Keron presented to [facility] today for failure of outpatient therapy. IV Bumex 4 mg and metolazone 5 mg have been provided. Ding placed. Unfortunately UOP has only been ~200 ml. I discussed potential indications for dialysis in detail with Keron today. He has been able to complete predialysis [facility] ed ucation through [employer] and has expressed interest in PD or in-center HD. Long smoking history. 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 Keron has CKD IV. Baseline creatinine 2.5 mg/dL. He has an atrophic right kidney. The kidney had been chronically hydronephrotic. This has been stented in the past without noted improvement. Nuclear renal scan in October 2019 showed right kidney to be minimally functional with less than 19% function. Split kidney function with >81% on the left. Right brachiocephalic AV fistula was placed on 07/20/[address] Zayas. Unfortunately there was primary failure resulting AV graft placement in September 2020. He is planning to do hemodialysis when needed. Allergies Allergy/AdvReac Type Severity Reaction Status Date / Time No Known Allergies Allergy Unknown Verified 06/23/21 13:20 Home Medications Medication Instructions Recorded Confirmed Type aspirin 81 mg tablet,delayed 81 mg PO QAM 11/03/19 06/23/21 History release atorvastatin 80 mg tablet 80 mg PO HS 11/30/19 06/23/21 History cholecalciferol (vitamin D3) 50 2,000 unit PO QAM 12/24/19 06/23/21 History mcg (2,000 unit) chewable tablet ferrous sulfate 325 mg (65 mg 325 mg PO QAM 02/16/20 06/23/21 History iron) tablet (iron) Spacer for Inhaler #1 ea 02/21/20 06/09/21 Rx hydralazine 50 mg tablet 50 mg PO TID 05/10/20 06/23/21 History pantoprazole 40 mg tablet,delayed 40 mg PO QAM 05/10/20 06/23/21 History release losartan 25 mg tablet 25 mg PO QAM 07/13/20 06/23/21 History vit C 250 mg-vit E 90 mg-zinc 40 1 tab PO BID 07/13/20 06/23/21 History mg-copper 1 [id number] capsule (PreserVision AREDS-2) acetaminophen 325 mg tablet 650 mg PO QID PRN 01/22/21 06/23/21 History (Tylenol) clopidogrel 75 mg tablet (Plavix) 75 mg PO QAM 01/22/21 06/23/21 History albuterol sulfate 90 mcg/actuation 1 inh INHALATION QID PRN #18 g 02/22/21 06/23/21 Rx aerosol inhaler furosemide 10 mg/mL injection 80 mg IV ONCE 06/23/21 06/23/21 History solution furosemide 10 mg/mL injection 100 mg IV ONCE 06/23/21 06/23/21 History solution isosorbide mononitrate 30 mg 30 mg PO QAM 06/23/21 06/23/21 History tablet,extended release 24 hr metoprolol succinate 50 mg 25 mg PO BID 06/23/21 06/23/21 History tablet,extended release 24 hr potassium chloride 10 mEq 10 meq PO QAM 06/23/21 06/23/21 History tablet,extended release tiotropium 2.5 mcg-olodaterol 2.5 2 puff INHALATION QAM 06/23/21 06/23/21 History mcg/actuation mist for inhalation (Stiolto Respimat) torsemide 20 mg tablet 30 mg PO QAM PRN 06/23/21 06/23/21 History Patient History Medical History AV fistula RIGHT UPPER ARM> NOT WORKING> REASON FOR PROCEDURE CAD (coronary artery disease) Chronic RCA occlusion; s/p three MARY 11/06/19 to LAD; residual 40% OM2 stenosis Chronic congestive heart failure 02/2020 [facility] - SOB and fluid around heart and lungs - had pacer placed. Chronic kidney disease, stage V no diaylsis currently. will see Dr Handy in August 2020. COPD with emphysema History of COVID-19 Hx of pulmonary edema "flash" during endo/colon 02/2020 [facility]. Hyperlipidemia Hypertension Hypokalemia Hyponatremia CHRONIC Iron deficiency anemia REASON FOR COLONOSCOPY/EGD 02/2020 Ischemic cardiomyopathy EJECTION FRACTION 30-34% Left bundle branch block Lung nodule monitoring Nocturnal hypoxemia due to emphysema placed on CPAP, no home oxygen currently. Pacemaker placed 02/2020 [facility]. last checked JUL 2020> FOLLOWS IRENE DUNCAN Peripheral vascular disease WITH BL CAROTID BRUITS- RIGHT AND LEFT ICA 50-69% PER 08/2020 CAROTID DOPPLER SFA OCCLUSIONS SMA stenosis Surgical History Amputation of fifth toe of right foot 2014 H/O vascular surgery RIGHT FEM-POP BYBASS in 2014, AORTOBIFEMORAL BYPASS IN 2003, PRIOR RIGHT ILIOFEMORAL BYPASS IN 1999 (PATIENT STATE HE HAS HAD 4 VASCULAR SURGERIES) History of angioplasty Right LE approx 2014 History of cardiac cath S/P PCI TO THE PROXIMAL AND MID LAD WITH 3 DRUG-ELUTING STENTS NOVEMBER 06, 2019. RESIDUAL 40% 2ND OBTUSE MARGINAL STENOSIS. History of colonoscopy 02/2020 History of esophagogastroduodenoscopy (EGD) History of heart artery stent x3 Nov 2019 [facility] [place] Duncan. S/P cardiac pacemaker procedure 02/2020 [facility] Family History Other No family history of adverse response to anesthesia Social History Smoking Status: Former smoker packs per day: 2; Years Smoked: 45; Cigarettes Per Day: 10-15; Second Hand Exposure: No; Do You Dip or Chew Tobacco: No; Tobacco Cessation Education Requested by Patient: No Hx Alcohol Use: Yes Alcohol type: beer Hx Substance Use: No Preferred Language: Honduran Communication Ability: Effective Legal Entity Controller Required: No Beliefs That Will Affect Care: None marital status: Single Current Living Situation: Alone How many Children do You have: 0 Other Information That Helps Us Care for You: No Feels Safe at Home: Yes Safety Concerns: Feels Safe At This Time Assistive Devices: CPAP Assistive Devices Comment: Pt uses CPAP at night during sleep Review of Systems Constitutional: + fatigue and + weight gain; no problem reported Eyes: no problem reported Ear, Nose, Mouth, Throat: no problem reported Respiratory: + dyspnea on exertion; no pain on inspiration Cardiovascular: + orthopnea and + edema; no chest pain and no palpitations Gastrointestinal: + bloating; no abdominal pain and no change in stools Musculoskeletal: no problem reported Integumentary: no problem reported Neurologic: no problem reported Psychiatric: no problem reported Endocrine: no problem reported Hematologic / Lymphatic: no problem reported Physical Exam Constitutional: well developed; no acute distress Eyes: no scleral abnormality and no corneal abnormality ENMT: Mouth: no oral mucosal abnormality and oral mucous membranes not dry Neck: normal visual inspection and trachea midline Respiratory: normal respiratory effort Auscultation: lungs clear to auscultation bilaterally and + rales (few at right base) Cardiovascular: Rate/Rhythm: regular rate Heart Sounds: normal S1 and normal S2 Extremities: + pedal edema, + varicosities and + AV fistula (RUE AVG) Musculoskeletal: Extremities: no cyanosis and no clubbing Skin: normal turgor; no lesions Neurologic: Motor/Sensory: no tremor and no asterixis Psychiatric: Orientation: alert and oriented x 3 Results & Data ([facility]) Vital Signs (Past 12 Hours) Vital Signs Temp Pulse Pulse Resp BP BP Pulse Ox 06/23/21 16:57 67 06/23/21 15:50 36.5 C 59 L 20 117/77 93 06/23/21 14:15 66 22 134/64 97 06/23/21 14:00 67 18 124/62 98 06/23/21 13:45 63 21 117/84 97 06/23/21 13:31 61 19 121/64 98 06/23/21 13:15 64 20 130/63 95 06/23/21 13:00 64 21 125/65 95 06/23/21 12:30 64 22 121/62 95 06/23/21 12:00 67 24 117/59 L 96 06/23/21 11:45 63 24 96 06/23/21 11:06 36.8 C 77 21 115/70 95 Laboratory Results Laboratory Results - last 24 hr 06/23/21 06/23/21 06/23/21 11:40 11:40 11:40 WBC 7.44 RBC 3.98 L Hgb 13.3 L Hct 38.9 L MCV 97.7 MCH 33.4 MCHC 34.2 RDW Std Deviation 55.8 H RDW Coeff of Monika 15.7 H Plt Count 237 MPV 10.0 Immature Gran % (Auto) 0.7 Neut % (Auto) 57.0 Lymph % (Auto) 25.5 [place] % (Auto) 9.7 Eos % (Auto) 6.2 Baso % (Auto) 0.9 Neut # (Auto) 4.24 Lymph # (Auto) 1.90 [place] # (Auto) 0.72 H Eos # (Auto) 0.46 Baso # (Auto) 0.07 Immature Gran # (Auto) 0.05 H PT 12.7 H INR 1.3 H APTT 28.8 PTT Ratio 1.1 Sodium 131 L Potassium 4.3 Chloride 101 Carbon Dioxide 19 L Anion Gap 11.0 BUN 56 H Creatinine 2.99 H Est Cr Clr Drug Dosing Not Reportable Est GFR ( Amer) 24.6 Est GFR (Non-Af Amer) 21.2 BUN/Creatinine Ratio 18.8 Glucose 106 H Calcium 8.7 Magnesium 2.4 Total Bilirubin 0.7 AST 18 ALT 21 Alkaline Phosphatase 142 H Troponin I < 0.015 NT-Pro-B Natriuret Pep 06535 H Total Protein 7.4 Albumin 3.6 Globulin 3.8 Albumin/Globulin Ratio 0.9 Specimen Hemolysis Urine Color Urine Appearance Urine pH Ur Specific [place] Urine Protein Urine Glucose (UA) Urine Ketones Urine Blood Urine Nitrite Urine Bilirubin Urine Urobilinogen Ur Leukocyte Esterase COVID-19 Eval Order SARS-CoV-2 (PCR) 06/23/21 06/23/21 06/23/21 12:00 12:00 16:12 WBC RBC Hgb Hct MCV MCH MCHC RDW Std Deviation RDW Coeff of Monika Plt Count MPV Immature Gran % (Auto) Neut % (Auto) Lymph % (Auto) [place] % (Auto) Eos % (Auto) Baso % (Auto) Neut # (Auto) Lymph # (Auto) [place] # (Auto) Eos # (Auto) Baso # (Auto) Immature Gran # (Auto) PT INR APTT PTT Ratio Sodium Potassium Chloride Carbon Dioxide Anion Gap BUN Creatinine Est Cr Clr Drug Dosing Est GFR ( Amer) Est GFR (Non-Af Amer) BUN/Creatinine Ratio Glucose Calcium Magnesium Total Bilirubin AST ALT Alkaline Phosphatase Troponin I NT-Pro-B Natriuret Pep Total Protein Albumin Globulin Albumin/Globulin Ratio Specimen Hemolysis Urine Color Yellow Urine Appearance Clear Urine pH 5.0 Ur Specific [place] 1.008 Urine Protein Negative Urine Glucose (UA) Negative Urine Ketones Negative Urine Blood Negative Urine Nitrite Negative Urine Bilirubin Negative Urine Urobilinogen Negative Ur Leukocyte Esterase Negative COVID-19 Eval Order Covid19 at [facility] SARS-CoV-2 (PCR) NEGATIVE PG Care Time/CCT Total # of Minutes Spent Total Time Spent with Patient: Total time spent is greater than 50% in coordination of care (as documented) at patient's floor/unit and/or counseling patient: Coding Level of Care Code 27066 Inpt Consult Level 4 Diagnoses Hypervolemia associated with renal insufficiency E87.70; N28.9 Anemia in chronic kidney disease N18.9; D63.1 Chronic kidney disease, stage 4 (severe) N18.4 Ischemic cardiomyopathy I25.5
[2021-06-23 18:35] LABS: Appearance Urine Clear (Clear); Bacteria Urine Automated Negative (Negative); Bilirubin Urine Negative (Negative); Blood Urine Negative (Negative); Color Urine Yellow; Epithelial Cell Urine Auto 20-30 /lpf (0-5); Glucose Urine UA Negative (Negative); Ketones Urine Negative (Negative); Leukocyte Esterase Urine Negative (Negative); Nitrite Urine Negative (Negative); Protein Urine Trace (Negative); RBC Urine Automated 0-4 /hpf (0-4); Specific Gravity Urine 1.008 (1.000-1.030); Urobilinogen Urine Negative (Negative)
[2021-06-23 19:26] LABS: Creatinine Urine Random 72.2 mg/dl; Protein Creatinine Ratio Urine 0.3 (0-0.2); Sodium Random Urine < 5 mmol/L; Urea Nitrogen, Urine Random 268 mg/dl
[2021-06-23] MEDS: CEROVITE ADV FORMULA TAB PO SCH (20:22)
[2021-06-23] MEDS: ATORVASTATIN 40 MG TAB PO SCH (20:23)
[2021-06-23] MEDS: METOPROLOL SUCC 25MG EXT REL TAB PO SCH (20:23)
[2021-06-23] MEDS: hydrALAZINE TAB 50 MG TAB PO SCH (20:23)
[2021-06-23] MEDS: BUMETANIDE 4 MG in SYRINGE 0 ML IV SCH (20:24)
--- NOTE | 2021-06-24 06:00 | Electrocardiogram Report ---
Test Reason : Blood Pressure : / mmHG Vent. Rate : 073 BPM Atrial Rate : 073 BPM P-R Int : 132 ms QRS Dur : 164 ms QT Int : 462 ms P-R-T Axes : 048 -39 089 degrees QTc Int : 508 ms Poor data quality, interpretation may be adversely affected Atrial-sensed ventricular-paced rhythm Abnormal ECG When compared with ECG of 16-MAR-2021 04:30, Vent. rate has decreased BY 15 BPM Confirmed by Jean-Claude Payton ([id number]) on 06/24/2021 6:00:15 AM Referred By: Erlin Duncan Confirmed By:Jean-Claude Payton
[2021-06-24 06:53] LABS: Hematocrit (blood only) 36.8 % (42-52); Hemoglobin 12.5 g/dL (14.0-18.0); Mean Corpuscular Hemoglobin 32.6 pg (25-34); Mean Corpuscular Volume 95.8 fL (80-100); Mean Platelet Volume 10.2 fL (7.4-10.4); Platelet Count 197 K/uL (130-400); RDW Standard Deviation 55.4 fL (36.4-46.3); Red Blood Count 3.84 M/uL (4.7-6.1); White Blood Count 5.45 K/uL (4.8-10.8)
[2021-06-24 07:31] LABS: BUN Creatinine Ratio 20.2 (10-20); Calcium 8.7 mg/dl (8.5-10.1); Creatinine Clr Calc Pharmacy 23.5 ml/min; Est GFR (African American) 23.4 ml/min; Est GFR (Non-African American) 20.2 ml/min; Potassium 3.5 mmol/L (3.5-5.1)
[2021-06-24] MEDS ORDERED: POTASSIUM CHLORIDE CRTAB 20 MEQ TABCR PO STA (08:24)
[2021-06-24] MEDS ORDERED: metOLazone 5 MG TABLET PO SCH (09:00)
[2021-06-24] MEDS: UMECLIDINIUM/VILANTEROL 62.5/25MCG 7 PUFFS/INHALER INH SCH (09:02)
[2021-06-24] MEDS: ISOSORBIDE MONO EXTENDED REL 30 MG TABCR PO SCH (09:03)
[2021-06-24] MEDS: ASPIRIN 81 MG ECTAB PO SCH (09:03)
[2021-06-24] MEDS: POTASSIUM CHLORIDE 10 MEQ TABCR PO SCH ×2 (09:03→09:10)
[2021-06-24] MEDS: CEROVITE ADV FORMULA TAB PO SCH ×2 (09:04→20:34)
[2021-06-24] MEDS: FERROUS SULFATE 325 MG TAB PO SCH (09:04)
[2021-06-24] MEDS: LOSARTAN POTASSIUM 25 MG TAB PO SCH (09:04)
[2021-06-24] MEDS: CHOLECALCIFEROL 1,000 UNITS 25 MCG TAB PO SCH (09:04)
[2021-06-24] MEDS: PANTOprazole 40 MG TAB PO SCH (09:04)
[2021-06-24] MEDS: CLOPIDOGREL BISULFATE 75 MG TAB PO SCH (09:04)
[2021-06-24] MEDS: hydrALAZINE TAB 50 MG TAB PO SCH ×3 (09:04→20:35)
[2021-06-24] MEDS: METOPROLOL SUCC 25MG EXT REL TAB PO SCH ×2 (09:05→20:35)
[2021-06-24] MEDS: BUMETANIDE 4 MG in SYRINGE 0 ML IV SCH (09:05)
--- NOTE | 2021-06-24 10:28 | Hospitalist Progress Note ---
Date of Service June 24, 2021 Assessment & Plan (1) Hypervolemia associated with renal insufficiency: Plan: Continue bumex 4mg IV BID, metolazone given today but will hold off further doses of this. Remove kelley catheter now urine output has been established US renal without urinary retention Strict I&Os Daily weights Fluid restrict 1500ml, low sodium, dialysis renal diet Appreciate ongoing nephrology recommendations (2) Acute on chronic HFrEF (heart failure with reduced ejection fraction): Plan: As above (3) Sleep apnea: Plan: CPAP HS (4) CAD (coronary artery disease): Plan: Continue ASA, clopidogrel, metoprolol succinate, losartan, ISMN, atorvastatin (5) Peripheral vascular disease: Plan: Continue ASA, Clopidogrel, atorvastatin (6) Hypertension: Plan: Continue outpatient anti-hypertensives and monitor BP with increased diuretics as above (7) Ischemic cardiomyopathy: Plan: Continue metoprolol succinate and losartan (8) Chronic kidney disease, stage V: Plan: Consult nephrology, close to baseline but with concerningly low output after 4mg IV bumex. (9) Anemia in chronic kidney disease: Plan: At baseline Plan: VTE Prophylaxis - heparin 5000 units SQ BID Disposition - continued admission med/tele Admission and Anticipated Discharge Date Admission Date: June 23, 2021 Subjective No significant change in symptoms over night. Kelley catheter in place. UO picked up considerably though with 2.4L out. Mild creatinine bump from 2.99 to 3.11. Review of Systems Review of Systems: All systems reviewed & are unremarkable except as noted in HPI & below Physical Exam Constitutional: WD/WN, vitals as above no acute distress Eyes: + anicteric sclerae; normal pupil size Respiratory: normal respiratory effort; no respiratory distress Auscultation: + diminished lung sounds (bibasal) and + crackles (bibasal); no wheezes Cardiovascular: Rate/Rhythm: regular rate and regular rhythm Heart Sounds: + murmur (systoloc 2/6 apex) Vessels: no JVD Extremities: normal capillary refill and + pedal edema (trace pre-tibial); no calf tenderness Gastrointestinal (Abdomen): normal bowel sounds, soft, nontender, no h epatosplenomegaly Skin: no rashes, warm and dry Neurologic: moves all extremities and awake; not confused Psychiatric: A+Ox3, euthymic affect Results & Data Results & Data ([place]) Vital Signs (Past 12 Hours) Vital Signs Temp Pulse Pulse Resp BP Pulse Ox 06/24/21 07:31 36.5 C 64 16 128/62 90 06/24/21 07:00 68 06/24/21 04:23 36.3 C L 66 18 131/72 92 06/24/21 03:39 64 20 93 06/24/21 00:13 65 06/23/21 23:09 36.6 C 64 18 124/69 92 06/23/21 22:28 66 18 92 PG Care Time/CCT Total # of Minutes Spent Total Time Spent with Patient: Total time spent is greater than 50% in coordination of care (as documented) at patient's floor/unit and/or counseling patient: Coding Level of Care Code 96635 Subseq Hosp Care Lvl 2 Diagnoses Hypervolemia associated with renal insufficiency E87.70; N28.9 Acute on chronic HFrEF (heart failure with reduced ejection fraction) I50.23 Sleep apnea G47.30 CAD (coronary artery disease) I25.10 Coronary Disease-Associated Artery/Lesion type: [place] artery [place] vs. transplanted heart: [place] heart Associated angina: without angina Peripheral vascular disease I73.9 Hypertension I10 Hypertension type: essential hypertension Ischemic cardiomyopathy I25.5 Chronic kidney disease, stage V N18.5 Anemia in chronic kidney disease N18.9; D63.1 (1) CAD (coronary artery disease) Coronary Disease-Associated Artery/Lesion type: [place] artery [place] vs. transplanted heart: [place] heart Associated angina: without angina Qualified Code(s): I25.10 - Atherosclerotic heart disease of [place] coronary artery without angina pectoris (2) Hypertension Hypertension type: essential hypertension Qualified Code(s): I10 - Essential (primary) hypertension
--- NOTE | 2021-06-24 10:38 | Nephrology Progress Note ---
Date of Service June 24, 2021 Assessment & Plan (1) Chronic kidney disease, stage 4 (severe): Plan: Baseline creatinine ~2.5 mg/dL. Renovascular disease and CRS. UOP improved. Arnaud notably low at <5 consistent with a significantly prerenal state. Diuretic resistance certainly associated. Thankfully, with improvement in urine output, there is no emergent indication for dialysis. Goals of care reviewed. Keron has expressed interest in PD. If we are able to temporize or control volume status now with diuretics, we may be able to consider incremental start PD in thee near future as an outpatient. Medications appropriate for kidney dysfunction. Ding to gravity. Document strict I/O's. Repeat metabolic profile tomorrow AM. KCl 40 mEq provided this AM. (2) Ischemic cardiomyopathy: Plan: Cardiology consultation. TTE pending. Low sodium diet and 1.5 L daily fluid restriction. (3) Hypervolemia associated with renal insufficiency: Plan: Notable CRS. Urine sodium consistent with this. May been to consider GASFITTER options in the near future. Conversation ongoing. (4) Anemia in chronic kidney disease: Plan: Chronic, stable. YONNY therapy held for Hgb >12. Admission and Anticipated Discharge Date Admission Date: June 23, 2021 Subjective No acute events overnight. Noted improvement in urine output. Keron has not noticed any change in symptoms. Activity tolerance remains limited due to dyspnea. Abdominal distention and orthopnea persist as well. Review of Systems Review of Systems: All systems reviewed & are unremarkable except as noted in HPI & below Physical Exam Constitutional: well developed; no acute distress Eyes: no scleral abnormality and no corneal abnormality ENMT: Mouth: no oral mucosal abnormality and oral mucous membranes not dry Neck: normal visual inspection and trachea midline Respiratory: normal respiratory effort Auscultation: lungs clear to auscultation bilaterally and + rales (few at right base) Cardiovascular: Rate/Rhythm: regular rate Heart Sounds: normal S1 and normal S2 Extremities: + pedal edema, + varicosities and + AV fistula (RUE AVG) Musculoskeletal: Extremities: no cyanosis and no clubbing Skin: normal turgor; no lesions Neurologic: Motor/Sensory: no tremor and no asterixis Psychiatric: Orientation: alert and oriented x 3 Results & Data ([facility]) Vital Signs (Past 12 Hours) Vital Signs Temp Pulse Pulse Resp BP Pulse Ox 08/20/21 07:31 36.5 C 64 16 128/62 90 06/24/21 07:00 68 06/24/21 04:23 36.3 C L 66 18 131/72 92 06/24/21 03:39 64 20 93 06/24/21 00:13 65 06/23/21 23:09 36.6 C 64 18 124/69 92 Laboratory Results Laboratory Results - last 24 hr 06/23/21 06/23/21 06/23/21 11:40 11:40 11:40 WBC 7.44 RBC 3.98 L Hgb 13.3 L Hct 38.9 L MCV 97.7 MCH 33.4 MCHC 34.2 RDW Std Deviation 55.8 H RDW Coeff of Monika 15.7 H Plt Count 237 MPV 10.0 Immature Gran % (Auto) 0.7 Neut % (Auto) 57.0 Lymph % (Auto) 25.5 Hyde % (Auto) 9.7 Eos % (Auto) 6.2 Baso % (Auto) 0.9 Neut # (Auto) 4.24 Lymph # (Auto) 1.90 Hyde # (Auto) 0.72 H Eos # (Auto) 0.46 Baso # (Auto) 0.07 Immature Gran # (Auto) 0.05 H PT 12.7 H INR 1.3 H APTT 28.8 PTT Ratio 1.1 Sodium 131 L Potassium 4.3 Chloride 101 Carbon Dioxide 19 L Anion Gap 11.0 BUN 56 H Creatinine 2.99 H Est Cr Clr Drug Dosing Not Reportable Est GFR ( Amer) 24.6 Est GFR (Non-Af Amer) 21.2 BUN/Creatinine Ratio 18.8 Glucose 106 H Calcium 8.7 Magnesium 2.4 Total Bilirubin 0.7 AST 18 ALT 21 Alkaline Phosphatase 142 H Troponin I < 0.015 NT-Pro-B Natriuret Pep 32305 H Total Protein 7.4 Albumin 3.6 Globulin 3.8 Albumin/Globulin Ratio 0.9 Specimen Hemolysis Urine Color Urine Appearance Urine pH Ur Specific [place] Urine Protein Urine Glucose (UA) Urine Ketones Urine Blood Urine Nitrite Urine Bilirubin Urine Urobilinogen Ur Leukocyte Esterase Urine WBC (Auto) Urine RBC (Auto) U Hyaline Cast (Auto) U Epithel Cells (Auto) Urine Bacteria (Auto) Ur Random Creatinine U Random Total Protein Ur Random Sodium Ur Random Urea Nitrogn Protein/Creatinin Ratio COVID-19 Eval Order SARS-CoV-2 (PCR) 06/23/21 06/23/21 06/23/21 12:00 12:00 16:12 WBC RBC Hgb Hct MCV MCH MCHC RDW Std Deviation RDW Coeff of Monika Plt Count MPV Immature Gran % (Auto) Neut % (Auto) Lymph % (Auto) Hyde % (Auto) Eos % (Auto) Baso % (Auto) Neut # (Auto) Lymph # (Auto) Hyde # (Auto) Eos # (Auto) Baso # (Auto) Immature Gran # (Auto) PT INR APTT PTT Ratio Sodium Potassium Chloride Carbon Dioxide Anion Gap BUN Creatinine Est Cr Clr Drug Dosing Est GFR ( Amer) Est GFR (Non-Af Amer) BUN/Creatinine Ratio Glucose Calcium Magnesium Total Bilirubin AST ALT Alkaline Phosphatase Troponin I NT-Pro-B Natriuret Pep Total Protein Albumin Globulin Albumin/Globulin Ratio Specimen Hemolysis Urine Color Yellow Urine Appearance Clear Urine pH 5.0 Ur Specific [place] 1.008 Urine Protein Negative Urine Glucose (UA) Negative Urine Ketones Negative Urine Blood Negative Urine Nitrite Negative Urine Bilirubin Negative Urine Urobilinogen Negative Ur Leukocyte Esterase Negative Urine WBC (Auto) Urine RBC (Auto) U Hyaline Cast (Auto) U Epithel Cells (Auto) Urine Bacteria (Auto) Ur Random Creatinine U Random Total Protein Ur Random Sodium Ur Random Urea Nitrogn Protein/Creatinin Ratio COVID-19 Eval Order Covid19 at [facility] SARS-CoV-2 (PCR) NEGATIVE 06/23/21 06/23/21 06/23/21 18:24 18:24 18:24 WBC RBC Hgb Hct MCV MCH MCHC RDW Std Deviation RDW Coeff of Monika Plt Count MPV Immature Gran % (Auto) Neut % (Auto) Lymph % (Auto) Hyde % (Auto) Eos % (Auto) Baso % (Auto) Neut # (Auto) Lymph # (Auto) Hyde # (Auto) Eos # (Auto) Baso # (Auto) Immature Gran # (Auto) PT INR APTT PTT Ratio Sodium Potassium Chloride Carbon Dioxide Anion Gap BUN Creatinine Est Cr Clr Drug Dosing Est GFR ( Amer) Est GFR (Non-Af Amer) BUN/Creatinine Ratio Glucose Calcium Magnesium Total Bilirubin AST ALT Alkaline Phosphatase Troponin I NT-Pro-B Natriuret Pep Total Protein Albumin Globulin Albumin/Globulin Ratio Specimen Hemolysis Urine Color Yellow Urine Appearance Clear Urine pH 5.0 Ur Specific [place] 1.008 Urine Protein Trace H Urine Glucose (UA) Negative Urine Ketones Negative Urine Blood Negative Urine Nitrite Negative Urine Bilirubin Negative Urine Urobilinogen Negative Ur Leukocyte Esterase Negative Urine WBC (Auto) 1-5 Urine RBC (Auto) 0-4 U Hyaline Cast (Auto) 1-5 U Epithel Cells (Auto) 20-30 H Urine Bacteria (Auto) Negative Ur Random Creatinine Cancelled 72.2 U Random Total Protein Cancelled 22.0 H Ur Random Sodium < 5 Ur Random Urea Nitrogn 268 Protein/Creatinin Ratio Cancelled 0.3 H COVID-19 Eval Order SARS-CoV-2 (PCR) 06/24/21 06/24/21 06:27 06:27 WBC 5.45 RBC 3.84 L Hgb 12.5 L Hct 36.8 L MCV 95.8 MCH 32.6 MCHC 34.0 RDW Std Deviation 55.4 H RDW Coeff of Monika 16.0 H Plt Count 197 MPV 10.2 Immature Gran % (Auto) Neut % (Auto) Lymph % (Auto) Hyde % (Auto) Eos % (Auto) Baso % (Auto) Neut # (Auto) Lymph # (Auto) Hyde # (Auto) Eos # (Auto) Baso # (Auto) Immature Gran # (Auto) PT INR APTT PTT Ratio Sodium 132 L Potassium 3.5 D Chloride 101 Carbon Dioxide 20 L Anion Gap 11.0 BUN 63 H Creatinine 3.11 H Est Cr Clr Drug Dosing 23.5 Est GFR ( Amer) 23.4 Est GFR (Non-Af Amer) 20.2 BUN/Creatinine Ratio 20.2 H Glucose 85 Calcium 8.7 Magnesium Total Bilirubin AST ALT Alkaline Phosphatase Troponin I NT-Pro-B Natriuret Pep Total Protein Albumin Globulin Albumin/Globulin Ratio Specimen Hemolysis Urine Color Urine Appearance Urine pH Ur Specific [place] Urine Protein Urine Glucose (UA) Urine Ketones Urine Blood Urine Nitrite Urine Bilirubin Urine Urobilinogen Ur Leukocyte Esterase Urine WBC (Auto) Urine RBC (Auto) U Hyaline Cast (Auto) U Epithel Cells (Auto) Urine Bacteria (Auto) Ur Random Creatinine U Random Total Protein Ur Random Sodium Ur Random Urea Nitrogn Protein/Creatinin Ratio COVID-19 Eval Order SARS-CoV-2 (PCR) PG Care Time/CCT Total # of Minutes Spent Total Time Spent with Patient: Total time spent is greater than 50% in coordination of care (as documented) at patient's floor/unit and/or counseling patient: Coding Level of Care Code 97042 Subseq Hosp Care Lvl 3 Diagnoses Chronic kidney disease, stage 4 (severe) N18.4 Ischemic cardiomyopathy I25.5 Hypervolemia associated with renal insufficiency E87.70; N28.9 Anemia in chronic kidney disease N18.9; D63.1
[2021-06-24] MEDS ORDERED: GI COCKTAIL ED USE PO ONE (15:11)
[2021-06-24] MEDS ORDERED: GI Cocktail Single dose PO ONE (15:30)
[2021-06-24 15:40] LABS: Lipase 146 U/L (73-393); Troponin I < 0.015 ng/ml (0-0.045)
--- NOTE | 2021-06-24 15:49 | Cardiology Progress Note ---
Date of Service June 24, 2021 Assessment & Plan (1) Acute on chronic HFrEF (heart failure with reduced ejection fraction): (2) Hypervolemia associated with renal insufficiency: (3) DAVIS (dyspnea on exertion): (4) COPD with emphysema: (5) Chronic kidney disease, stage V: (6) Peripheral vascular disease: (7) Ischemic cardiomyopathy: (8) ICD (implantable cardioverter-defibrillator) in place: Plan: Nephrology's help appreciated. The patient has had a large diuresis and feels better. The patient is still considering dialysis. Admission and Anticipated Discharge Date Admission Date: June 23, 2021 Subjective The patient had a large diuresis overnight and is feeling better. Review of Systems Review of Systems: Review of Systems: See HPI for pertinent positives. All other 10 point review of systems are negative. Physical Exam Physical Exam: General: no acute distress and stated age Head: normocephalic, no masses, lesions, tenderness or abnormalities Eyes: conjunctiva are pink and non-injected, sclera clear Neck: supple, no adenopathy, no bruits, normal jugular venous pulse, no hepatojugular reflux Chest: normal shape and normal respiratory effort Lungs: clear to auscultation and percussion Cardiac Exam: - regular rate & rhythm, no murmurs gallops or rubs - normal S1, normal S2 Pulses: 2(+) throughout Abdomen: The abdomen is distended with a fluid wave. Musculoskeletal: no gait disturbance, no joint inflammation, no deforming arthritis Extremities: no edema and no cyanosis Neuro: grossly normal exam Results & Data ([facility]) Vital Signs (Past 12 Hours) Vital Signs Temp Pulse Pulse Resp BP Pulse Ox 06/24/21 15:23 72 06/24/21 11:29 36.5 C 63 16 113/67 91 06/24/21 07:31 36.5 C 64 16 128/62 90 06/24/21 07:00 68 06/24/21 04:23 36.3 C L 66 18 131/72 92 Laboratory Results Laboratory Results - last 24 hr 06/23/21 06/23/21 06/23/21 16:12 18:24 18:24 WBC RBC Hgb Hct MCV MCH MCHC RDW Std Deviation RDW Coeff of Monika Plt Count MPV Sodium Potassium Chloride Carbon Dioxide Anion Gap BUN Creatinine Est Cr Clr Drug Dosing Est GFR ( Amer) Est GFR (Non-Af Amer) BUN/Creatinine Ratio Glucose Calcium Troponin I Lipase Urine Color Yellow Yellow Urine Appearance Clear Clear Urine pH 5.0 5.0 Ur Specific [place] 1.008 1.008 Urine Protein Negative Trace H Urine Glucose (UA) Negative Negative Urine Ketones Negative Negative Urine Blood Negative Negative Urine Nitrite Negative Negative Urine Bilirubin Negative Negative Urine Urobilinogen Negative Negative Ur Leukocyte Esterase Negative Negative Urine WBC (Auto) 1-5 Urine RBC (Auto) 0-4 U Hyaline Cast (Auto) 1-5 U Epithel Cells (Auto) 20-30 H Urine Bacteria (Auto) Negative Ur Random Creatinine Cancelled U Random Total Protein Cancelled Ur Random Sodium Ur Random Urea Nitrogn Protein/Creatinin Ratio Cancelled 06/23/21 06/24/21 06/24/21 18:24 06:27 06:27 WBC 5.45 RBC 3.84 L Hgb 12.5 L Hct 36.8 L MCV 95.8 MCH 32.6 MCHC 34.0 RDW Std Deviation 55.4 H RDW Coeff of Monika 16.0 H Plt Count 197 MPV 10.2 Sodium 132 L Potassium 3.5 D Chloride 101 Carbon Dioxide 20 L Anion Gap 11.0 BUN 63 H Creatinine 3.11 H Est Cr Clr Drug Dosing 23.5 Est GFR ( Amer) 23.4 Est GFR (Non-Af Amer) 20.2 BUN/Creatinine Ratio 20.2 H Glucose 85 Calcium 8.7 Troponin I Lipase Urine Color Urine Appearance Urine pH Ur Specific [place] Urine Protein Urine Glucose (UA) Urine Ketones Urine Blood Urine Nitrite Urine Bilirubin Urine Urobilinogen Ur Leukocyte Esterase Urine WBC (Auto) Urine RBC (Auto) U Hyaline Cast (Auto) U Epithel Cells (Auto) Urine Bacteria (Auto) Ur Random Creatinine 72.2 U Random Total Protein 22.0 H Ur Random Sodium < 5 Ur Random Urea Nitrogn 268 Protein/Creatinin Ratio 0.3 H 06/24/21 06:27 WBC RBC Hgb Hct MCV MCH MCHC RDW Std Deviation RDW Coeff of Monika Plt Count MPV Sodium Potassium Chloride Carbon Dioxide Anion Gap BUN Creatinine Est Cr Clr Drug Dosing Est GFR ( Amer) Est GFR (Non-Af Amer) BUN/Creatinine Ratio Glucose Calcium Troponin I < 0.015 Lipase 146 Urine Color Urine Appearance Urine pH Ur Specific [place] Urine Protein Urine Glucose (UA) Urine Ketones Urine Blood Urine Nitrite Urine Bilirubin Urine Urobilinogen Ur Leukocyte Esterase Urine WBC (Auto) Urine RBC (Auto) U Hyaline Cast (Auto) U Epithel Cells (Auto) Urine Bacteria (Auto) Ur Random Creatinine U Random Total Protein Ur Random Sodium Ur Random Urea Nitrogn Protein/Creatinin Ratio Diagnostic Findings Echo report on chart. Ultrasound reveals minimal ascites in the chest x-ray has small bilateral pleural effusions. Medications Administered Current Inpatient Medications Acetaminophen (Acetaminophen 325 Mg Tab) 650 mg PO Q4H PRN PRN Reason: Pain or Fever Stop: 07/23/21 15:43 Last Admin: 06/23/21 20:22 Dose: 650 mg Documented by: Albuterol (Albuterol Hfa 8 Gm Inhaler) 1 puffs INH QID PRN PRN Reason: shortness of breath or wheezing Stop: 07/23/21 15:43 Aspirin (Aspirin 81 Mg Ectab) 81 mg PO [facility] Stop: 07/24/21 08:59 Last Admin: 06/24/21 09:03 Dose: 81 mg Documented by: Atorvastatin Calcium (Atorvastatin 40 Mg Tab) 80 mg PO [facility] Stop: 07/23/21 20:59 Last Admin: 06/23/21 20:23 Dose: 80 mg Documented by: Clopidogrel Bisulfate (Clopidogrel Bisulfate 75 Mg Tab) 75 mg PO [facility] Stop: 07/24/21 08:59 Last Admin: 06/24/21 09:04 Dose: 75 mg Documented by: Ferrous Sulfate (Ferrous Sulfate 325 Mg Tab) 325 mg PO [facility] Stop: 07/24/21 08:59 Last Admin: 06/24/21 09:04 Dose: 325 mg Documented by: Hydralazine HCl (Hydralazine Tab 50 Mg Tab) 50 mg PO TID [facility] Stop: 07/23/21 20:59 Last Admin: 06/24/21 13:52 Dose: 50 mg Documented by: Bumetanide 4 mg/ Syringe 16 mls @ 4 mls/min IV DAILY [facility] Stop: 07/25/21 08:59 Isosorbide Mononitrate (Isosorbide [place] Extended Rel 30 Mg Tabcr) 30 mg PO [facility] Stop: 07/24/21 08:59 Last Admin: 06/24/21 09:03 Dose: 30 mg Documented by: Losartan Potassium (Losartan Potassium 25 Mg Tab) 25 mg PO [facility] Stop: 07/24/21 08:59 Last Admin: 06/24/21 09:04 Dose: 25 mg Documented by: Metoprolol Succinate (Metoprolol Succ 25mg Ext Rel Tab) 25 mg PO BID [facility] Stop: 07/23/21 20:59 Last Admin: 06/24/21 09:05 Dose: 25 mg Documented by: Multivitamins/Minerals (Cerovite Adv Formula Tab) 1 tab PO BID [facility] Stop: 07/23/21 20:59 Last Admin: 06/24/21 09:04 Dose: 1 tab Documented by: Pantoprazole Sodium (Pantoprazole 40 Mg Tab) 40 mg PO [facility] Stop: 07/24/21 08:59 Last Admin: 06/24/21 09:04 Dose: 40 mg Documented by: Potassium Chloride (Potassium Chloride Crtab 20 Meq Tabcr) 20 meq PO [facility] Stop: 07/25/21 08:59 Umeclidinium/Vilanterol (Umeclidinium/Vilanterol 62.5/25mcg 7 Puffs/Inhaler) 1 puffs INH [facility]; Protocol Stop: 07/24/21 08:59 Last Admin: 06/24/21 09:02 Dose: 1 puffs Documented by: Vitamin D (Cholecalciferol 1,000 Units 25 Mcg Tab) 2,000 units PO [facility] Stop: 07/24/21 08:59 Last Admin: 06/24/21 09:04 Dose: 2,000 units Documented by:
[2021-06-24] MEDS ORDERED: BUMETANIDE 4 MG in SYRINGE 0 ML IV SCH (17:00)
[2021-06-24] MEDS: ATORVASTATIN 40 MG TAB PO SCH (20:34)
[2021-06-25 06:44] LABS: BUN Creatinine Ratio 20.5 (10-20); Calcium 8.9 mg/dl (8.5-10.1); Creatinine Clr Calc Pharmacy 23.1 ml/min; Est GFR (African American) 22.9 ml/min; Est GFR (Non-African American) 19.8 ml/min; Potassium 3.4 mmol/L (3.5-5.1)
[2021-06-25] MEDS: CHOLECALCIFEROL 1,000 UNITS 25 MCG TAB PO SCH (08:44)
[2021-06-25] MEDS: LOSARTAN POTASSIUM 25 MG TAB PO SCH (08:44)
[2021-06-25] MEDS: ASPIRIN 81 MG ECTAB PO SCH (08:44)
[2021-06-25] MEDS: CEROVITE ADV FORMULA TAB PO SCH (08:44)
[2021-06-25] MEDS: PANTOprazole 40 MG TAB PO SCH (08:44)
[2021-06-25] MEDS: ISOSORBIDE MONO EXTENDED REL 30 MG TABCR PO SCH (08:44)
[2021-06-25] MEDS: CLOPIDOGREL BISULFATE 75 MG TAB PO SCH (08:44)
[2021-06-25] MEDS: FERROUS SULFATE 325 MG TAB PO SCH (08:45)
[2021-06-25] MEDS: UMECLIDINIUM/VILANTEROL 62.5/25MCG 7 PUFFS/INHALER INH SCH (08:45)
[2021-06-25] MEDS: METOPROLOL SUCC 25MG EXT REL TAB PO SCH (08:45)
[2021-06-25] MEDS: hydrALAZINE TAB 50 MG TAB PO SCH ×2 (08:45→14:03)
[2021-06-25] MEDS ORDERED: POTASSIUM CHLORIDE CRTAB 20 MEQ TABCR PO SCH (09:00)
[2021-06-25] MEDS ORDERED: BUMETANIDE 4 MG in SYRINGE 0 ML IV SCH (09:00)
[2021-06-25] MEDS ORDERED: HEPARIN SOD 5,000 UNIT/0.5 ML VIAL SQ SCH (11:00)
--- NOTE | 2021-06-25 11:40 | Nephrology Progress Note ---
Date of Service June 25, 2021 Assessment & Plan (1) Chronic kidney disease, stage 4 (severe): Plan: Attributed to vascular disease. Baseline creatinine ~2.5 mg/dL but this is unfortunately complicated by notable CRS. Thankfully UOP responded well to IV Bumex and metolazone. Keron continues to respond well to IV Lasix. Arnaud on admission notably low, <5 consistent with a significantly prerenal state. Diuretic resistance certainly associated. Thankfully, with improvement in urine output with IV combination diuretic therapy. There is no emergent indication for dialysis. However, FILM COATER in the near future may be necessary for volume management. Keron has expressed interest in PD. If we are able to reasonably control volume status now with diuretics, I would consider incremental start PD potentially as an outpatient. Medications appropriate for kidney dysfunction. KCl 20 mEq PO provided this AM for hypokalemia. AVF mature for use if needed. (2) Ischemic cardiomyopathy: Plan: I discussed the plan of care with Dr. Sosa this AM. TTE reviewed. LV moderately dilated. Normal LA. Moderate aortic regurgitation and moderate to severe MR. Severe TR. PASP 60. Low sodium diet and 1.5 L daily fluid restriction. (3) Hypervolemia associated with renal insufficiency: Plan: Notable CRS. Urine sodium consistent with this. May been to consider FILM COATER options in the near future. Conversation ongoing. Prior to admission, Keron had continued to experience fluid retention despite Torsemide 30 mg twice daily and IV furosemide provided in the outpatient cardiology clinic. A combination diuretic therapy option including metolazone may be a good option moving forward. (4) Anemia in chronic kidney disease: Plan: Chronic, stable. YONNY therapy held for Hgb >12. Admission and Anticipated Discharge Date Admission Date: June 23, 2021 Subjective Keron feels well this AM. Ding has been removed and he is voiding without difficulty. He is breathing comfortably. Orthopnea improved. Activity tolerance fair. He would really like to go home today. Review of Systems Review of Systems: All systems reviewed & are unremarkable except as noted in HPI & below Physical Exam Constitutional: well developed; no acute distress Eyes: no scleral abnormality and no corneal abnormality ENMT: Mouth: no oral mucosal abnormality and oral mucous membranes not dry Neck: normal visual inspection and trachea midline Respiratory: normal respiratory effort Auscultation: lungs clear to auscultation bilaterally and + rales (few at right base) Cardiovascular: Rate/Rhythm: regular rate Heart Sounds: normal S1, normal S2 and + murmur Extremities: + pedal edema, + varicosities and + AV fistula (RUE AVG) Musculoskeletal: Extremities: no cyanosis and no clubbing Skin: normal turgor; no lesions Neurologic: Motor/Sensory: no tremor and no asterixis Psychiatric: Orientation: alert and oriented x 3 Results & Data ([facility]) Vital Signs (Past 12 Hours) Vital Signs Temp Pulse Pulse Resp BP Pulse Ox 06/25/21 07:49 36.5 C 86 16 126/65 91 06/25/21 07:00 67 06/25/21 02:48 36.5 C 71 18 126/71 92 06/25/21 00:02 66 Laboratory Results Laboratory Results - last 24 hr 06/24/21 06/25/21 06:27 05:57 Sodium 134 L Potassium 3.4 L Chloride 102 Carbon Dioxide 22 Anion Gap 10.0 BUN 65 H Creatinine 3.17 H Est Cr Clr Drug Dosing 23.1 Est GFR ( Amer) 22.9 Est GFR (Non-Af Amer) 19.8 BUN/Creatinine Ratio 20.5 H Glucose 100 H Calcium 8.9 Troponin I < 0.015 Lipase 146 PG Care Time/CCT Total # of Minutes Spent Total Time Spent with Patient: Total time spent is greater than 50% in coordination of care (as documented) at patient's floor/unit and/or counseling patient: Coding Level of Care Code 69912 Subseq Hosp Care Lvl 3 Diagnoses Chronic kidney disease, stage 4 (severe) N18.4 Ischemic cardiomyopathy I25.5 Hypervolemia associated with renal insufficiency E87.70; N28.9 Anemia in chronic kidney disease N18.9; D63.1
--- NOTE | 2021-06-25 13:17 | Cardiology Progress Note ---
Date of Service June 25, 2021 Assessment & Plan (1) Acute on chronic HFrEF (heart failure with reduced ejection fraction): (2) Ischemic cardiomyopathy: Plan: 61-year-old male with complex multibed vascular disease, ischemic cardiomyopathy most recent cardiac revascularization procedure included 3 drug-eluting stents to the proximal and mid LAD November,, with left bundle branch block, severe biventricular systolic function, LVEF this admission 30 to 35%, unchanged compared to recent baseline with echo evidence of biventricular systolic dysfunction, elevated filling pressures, moderate to severe MR in the absence of structural heart valve disease once again likely due to high filling pressures. Has single functioning kidney with stage removal for CKD, recent outpatient creatinine 2.9, EGFR 22.5, sodium 130 on outpatient chemistry panel 06/22/2021. Patient presented to the ED with ongoing volume overload despite receiving IV furosemide 100 mg as outpatient on 06/22. Since presentation via the emergency room on 06/23/2021, he has improved clinical ly on Bumex 4 mg IV twice daily with dose administered this am. Pt is eager for discharge. Patient has history of biventricular pacemaker/AICD. Settings were adjusted on 06/22/2021 including change in LV amplitude from 4.25 V to 2.5 V and adaptive Bi- V and LV SECURITY SYSTEM INSTALLER setting initiated, in hopes to improve benefit of electrical/mechanical resynchronization. Plan: Complex history discussed with Dr. Tubbs of nephrology. Outpatient cardiology notes, medication history reviewed. Discharge of torsemide 50 mg p.o. twice daily (dose increased compared to previous of 30 mg. This would be a 20 mg tablet, 2.5 tablets twice per day). Plan for metolazone 2.5 mg PO one day per week, on Mondays along with the torsemide. Received supplemental potassium chloride 20 mEq this morning, but given degree of renal insufficiency, will hold off on potassium replacement as an outpatient for now pending further follow-up. Plan for nephrology follow up on 06/[address] Handy of nephrology , for discussion regarding referral for peritoneal dialysis access and home dialysis. Per review of records, patient does have the previously placed AV fistula. Already has 07/25/2021 cardiology visit, I have requested a sooner visit in addition to be performed within 1 to 2 weeks. Admission and Anticipated Discharge Date Admission Date: June 23, 2021 Subjective Patient seen in cardiology follow up of volume overload, severe biventricular systolic function. Review of Systems Review of Systems: All systems reviewed & are unremarkable except as noted in HPI & below Physical Exam Physical Exam: Temp Pulse Resp BP Pulse Ox 36.4 C L 66 16 107/67 93 06/25/21 11:35 06/25/21 11:35 06/25/21 11:35 06/25/21 11:35 06/25/21 11:35 Respiratory: Auscultation: + diminished lung sounds (mildly reduced BS at the bases ); no rales and no wheezes Gastrointestinal (Abdomen): normal bowel sounds, soft, nontender, no hepatosplenomegaly Neurologic: PERRL, EOMI, accommodation nl, no face palsy, no dysarthria Results & Data ([facility]) Vital Signs (Past 12 Hours) Vital Signs Temp Pulse Pulse Resp BP Pulse Ox 06/25/21 11:35 36.4 C L 66 16 107/67 93 06/25/21 07:49 36.5 C 86 16 126/65 91 06/25/21 07:00 67 06/25/21 02:48 36.5 C 71 18 126/71 92 Laboratory Results Cardiac Enzymes 06/24/21 Range/Units 06:27 Troponin I < 0.015 (0-0.045) ng/ml Comprehensive Metabolic Panel 06/25/21 Range/Units 05:57 Sodium 134 L (136-145) mmol/L Potassium 3.4 L (3.5-5.1) mmol/L Chloride 102 (98-107) mmol/L Carbon Dioxide 22 (21-32) mmol/L BUN 65 H (7-18) mg/dl Creatinine 3.17 H (0.6-1.4) mg/dl Glucose 100 H (70-99) mg/dl Calcium 8.9 (8.5-10.1) mg/dl Intake and Output 06/24/21 06/25/21 06/25/21 22:59 06:59 14:59 Intake Total 540 / 1475 300 / 1475 350 / 350 Output Total 875 / 1950 375 / 1950 1025 / 1025 Balance -335 / -475 -75 / -475 -675 / -675 Intake: Oral 540 / 1475 300 / 1475 350 / 350 Output: Urine 875 / 1550 375 / 1550 1025 / 1025 Other: Weight 68.7 kg
--- NOTE | 2021-06-25 13:26 | Hospitalist Progress Note ---
Date of Service June 25, 2021 Assessment & Plan (1) Hypervolemia associated with renal insufficiency: Plan: Continue bumex 4mg IV but switch to daily per nephrology recommendations, metolazone on hold today. US renal without urinary retention Strict I&Os - cumulative negative 2640ml Daily weights - 70.6 -> 68.7kg today Fluid restrict 1500ml, low sodium, dialysis renal diet Appreciate ongoing nephrology recommendations - will likely need dialysis to stop repeated hospitalizations given diuretic resistance (2) Acute on chronic HFrEF (heart failure with reduced ejection fraction): Plan: As above (3) Gastritis: Plan: Epigastric pain resolved with GI cocktail Currently on pantoprazole 40mg PO daily Will add famotidine if pain returns (4) Sleep apnea: Plan: CPAP HS (5) CAD (coronary artery disease): Plan: Continue ASA, clopidogrel, metoprolol succinate, losartan, ISMN, atorvastatin (6) Peripheral vascular disease: Plan: Continue ASA, Clopidogrel, atorvastatin (7) Hypertension: Plan: Continue outpatient anti-hypertensives and monitor BP with increased diuretics as above (8) Ischemic cardiomyopathy: Plan: Continue metoprolol succinate and losartan (9) Chronic kidney disease, stage V: Plan: Consult nephrology, close to baseline but with concerningly low output after 4mg IV bumex. (10) Anemia in chronic kidney disease: Plan: At baseline Plan: VTE Prophylaxis - heparin 5000 units SQ BID Disposition - continued admission med/tele Admission and Anticipated Discharge Date Admission Date: June 23, 2021 Subjective Epigastric pain from yesterday resolved with GI cocktail. Not yet returned. Lipase and repeat troponin were negative. Review of Systems Review of Systems: All systems reviewed & are unremarkable except as noted in HPI & below Physical Exam Constitutional: well developed; no acute distress Respiratory: normal respiratory effort Auscultation: lungs clear to auscultation bilaterally; no diminished lung sounds, no crackles and no wheezes Cardiovascular: Rate/Rhythm: regular rate Heart Sounds: normal S1 and normal S2 Extremities: + pedal edema (1+ pre-tibial equal b/l) and + AV fistula (RUE graft) Psychiatric: Orientation: alert and oriented x 3 Results & Data Results & Data ([facility]) Vital Signs (Past 12 Hours) Vital Signs Temp Pulse Pulse Resp BP Pulse Ox 06/25/21 11:35 36.4 C L 66 16 107/67 93 06/25/21 07:49 36.5 C 86 16 126/65 91 06/25/21 07:00 67 06/25/21 02:48 36.5 C 71 18 126/71 92 PG Care Time/CCT Total # of Minutes Spent Total Time Spent with Patient: Total time spent is greater than 50% in coordination of care (as documented) at patient's floor/unit and/or counseling patient: Coding Level of Care Code 44846 Subseq Hosp Care Lvl 2 Diagnoses Hypervolemia associated with renal insufficiency E87.70; N28.9 Acute on chronic HFrEF (heart failure with reduced ejection fraction) I50.23 Sleep apnea G47.30 CAD (coronary artery disease) I25.10 Coronary Disease-Associated Artery/Lesion type: [place] artery [place] vs. transplanted heart: [place] heart Associated angina: without angina Peripheral vascular disease I73.9 Hypertension I10 Hypertension type: essential hypertension Ischemic cardiomyopathy I25.5 Chronic kidney disease, stage V N18.5 Anemia in chronic kidney disease N18.9; D63.1 Gastritis K29.70 (1) CAD (coronary artery disease) Coronary Disease-Associated Artery/Lesion type: [place] artery [place] vs. transplanted heart: [place] heart Associated angina: without angina Qualified Code(s): I25.10 - Atherosclerotic heart disease of [place] coronary artery without angina pectoris (2) Hypertension Hypertension type: essential hypertension Qualified Code(s): I10 - Essential (primary) hypertension
--- NOTE | 2021-06-25 14:22 | Discharge Summary ---
Date of Service June 25, 2021 Admission HPI Per Admitting Provider Keron Fall is a 61 year old male with chronic kidney disease who presents to the ER on the advice of his quality improvement consultant due to shortness of breath progressively getting worse over the last 2 weeks. 10 days ago he started taking twice his torsemide without significant effect. Two days ago he was given Lasix 80mg IV in his cardiologists office then yesterday Lasix 100mg IV. Due to lack of response he was referred to the ER for ongoing care. Associated weight gain 7-10lb. He denies any recent salt increase. Chronic orthopnea no worse than usual (uses 2 pillows at night), no paroxysmal nocturnal dyspnea, palpitations leg swelling or chest pain. He already has a right AV graft placed in September 2020 but is yet to have any hemodialysis. He also has chronic COPD. Taking inhalers as prescribed. No wheezing, cough, fever or chills. In the ER he was given Bumex 1mg IV without any urine output. Creatinine 2.99, baseline 2.5-3.0. Principal Diagnosis Hypervolemia secondary to chronic kidney disease Discharge Exam Constitutional WD/WN, vitals as above well developed; no acute distress ENMT external ear and nose normal, oropharynx normal Respiratory normal respiratory effort; no respiratory distress Auscultation: lungs clear to auscultation bilaterally; no diminished lung sounds, no crackles and no wheezes Cardiovascular Rate/Rhythm: regular rate and regular rhythm Heart Sounds: normal S1, normal S2 and + murmur (systolic 2/6 apex) Vessels: no JVD Extremities: normal capillary refill, + pedal edema (1+ pre-tibial equal b/l) and + AV fistula (RUE graft); no calf tenderness Gastrointestinal (Abdomen) normal bowel sounds, soft, nontender, no hepatosplenomegaly Musculoskeletal no cyanosis or clubbing, extremities motor strength 5/5 Skin no rashes, warm and dry Neurologic moves all extremities and awake; not confused Psychiatric Orientation: alert and oriented x 3 Discharge Data Allergies Allergy/AdvReac Type Severity Reaction Status Date / Time No Known Allergies Allergy Unknown Verified 06/28/21 13:13 Consultations 06/23/21 12:27 ED Decision to Admit Stat 06/23/21 14:16 Consult Nephrology Stat 06/23/21 15:44 Consult Nephrology Routine Ordered Studies 06/23/21 14:15 US renal/blad retro comp Stat IMPRESSION: 1. The right kidney is atrophic and echogenic. 2. The left kidney is normal in size and echotexture. 3. No hydronephrosis. 4. The appearance of the bladder suggests chronic outlet obstruction. 5. Small volume pelvic ascites. 06/23/21 14:25 US abdomen ltd ascites Stat IMPRESSION: 1. Small amount of scattered ascites. 2. Bilateral pleural effusions. Hospital Course (1) Hypervolemia associated with renal insufficiency: (2) Acute on chronic HFrEF (heart failure with reduced ejection fraction): (3) Gastritis: (4) Sleep apnea: (5) CAD (coronary artery disease): (6) Peripheral vascular disease: (7) Hypertension: (8) Ischemic cardiomyopathy: (9) Chronic kidney disease, stage V: (10) Anemia in chronic kidney disease: Keron Fall is a 61 year old admitted to [facility] from June 23 - 2020 due to shortness of breath on exertion. He was diagnosed with hypervolemia secondary to chronic kidney disease. This improved with intravenous Bumex and oral metolazone. On discussion with cardiology and nephrology recommended increasing torsemide dose to 50mg PO twice daily and metolazone 2.5mg PO once weekly on a Sunday. Additionally he was started on potassium chloride 20 meq daily while on this increased dose of diuretics. He will continue to follow with nephrology for continued management of his fluid status and possible need for dialysis. 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 You were diagnosed with hypervolemia secondary to chronic kidney disease. This improved with intravenous Bumex and oral metolazone diuretics. On discussion with your cardiologists and nephrologists recommend increasing your torsemide dose to 50mg PO twice daily and metolazone 2.5mg PO once weekly on Sunday. You have been started on potassium chloride 20 meq daily while on this increased dose of diuretics. Please follow up with your academic adviser as previously planned on Sunday. You quality improvement consultant office has been contacted for sooner follow up, please call on Sunday to arrange this. Pending Studies at Discharge: No Stand-Alone Forms: My [facility], Smoking Cessation Medications and DC Order Prescriptions: New metolazone 2.5 mg tablet 2.5 mg PO .weekly Qty: 14 RF: 0 Continued albuterol sulfate 90 mcg/actuation HFA aerosol inhaler 1 inh inhalation QID PRN (Reason: shortness of breath or wheezing) Qty: 18 RF: 3 hydralazine 50 mg tablet 50 mg PO TID RF: 0 pantoprazole 40 mg tablet,delayed release (DR/EC) 40 mg PO QAM RF: 0 aspirin 81 mg Tablet,Delayed Release (Dr/Ec) 81 mg PO QAM RF: 0 (DME) Spacer for Inhaler Misc See Rx Instructions .ROUTE .MEDSUPPLY Qty: 1 RF: 0 PreserVision AREDS-2 [id number] Capsule 1 tab PO BID RF: 0 losartan 25 mg tablet 25 mg PO QAM RF: 0 atorvastatin 80 mg Tablet 80 mg PO HS RF: 0 cholecalciferol (vitamin D3) 2,000 unit Tablet,Chewable 2,000 unit PO QAM RF: 0 ferrous sulfate [iron] 325 mg (65 mg iron) tablet 325 mg PO QAM RF: 0 metoprolol succinate 50 mg tablet extended release 24 hr 25 mg PO BID RF: 0 isosorbide mononitrate 30 mg tablet extended release 24 hr 30 mg PO QAM RF: 0 Stiolto Respimat 2.5-2.5 mcg/actuation mist 2 puff inhalation QAM RF: 0 acetaminophen [Tylenol] 325 mg Tablet 650 mg PO QID PRN (Reason: Pain) RF: 0 clopidogrel [Plavix] 75 mg Tablet 75 mg PO QAM RF: 0 Changed torsemide 20 mg Tablet 50 mg PO BID Qty: 0 RF: 0 potassium chloride 10 mEq tablet extended release 20 meq PO QAM Qty: 0 RF: 0 Discontinued furosemide [Lasix] 10 mg/mL Solution 80 mg IV ONCE RF: 0 furosemide [Lasix] 10 mg/mL Solution 100 mg IV ONCE RF: 0 Discharge Orders: Discharge Order (Routine); Ordered 06/25/21 Ordered By: Zheng Woods Admission Data Admit Date/Time: 06/23/21 13:10 Attending Provider: Zheng Woods Admit Provider: Zheng Woods Primary Care Provider: Nixon Pollack Other Providers: Raulito Tubbs ; Nixon Gardner ; Tao Sosa Other Interventions: Discharge Summary Assessment (RN) Last Done: 06/25/21 14:32 Coding Level of Care Code D/C DAY MANAGEMENT >30 MINS Diagnoses Hypervolemia associated with renal insufficiency E87.70; N28.9 Acute on chronic HFrEF (heart failure with reduced ejection fraction) I50.23 Gastritis K29.70 Sleep apnea G47.30 CAD (coronary artery disease) I25.10 Associated angina: without angina Coronary Disease-Associated Artery/Lesion type: [place] artery [place] vs. transplanted heart: [place] heart Peripheral vascular disease I73.9 Hypertension I10 Hypertension type: essential hypertension Ischemic cardiomyopathy I25.5 Chronic kidney disease, stage V N18.5 Anemia in chronic kidney disease N18.9; D63.1
--- NOTE | 2021-06-27 09:19 | Electrocardiogram Report ---
Test Reason : Blood Pressure : / mmHG Vent. Rate : 073 BPM Atrial Rate : 073 BPM P-R Int : 124 ms QRS Dur : 178 ms QT Int : 468 ms P-R-T Axes : 038 -34 115 degrees QTc Int : 515 ms Poor data quality, interpretation may be adversely affected Atrial-sensed ventricular-paced rhythm Abnormal ECG When compared with ECG of 23-JUN-2021 11:31, No significant change was found Confirmed by Terry Sabillon ([id number]) on 06/27/2021 9:18:52 AM Referred By: Erlin Duncan Confirmed By:Terry Sabillon
--- NOTE | 2021-07-06 09:07 | Coding Query ---
CODING QUERY To promote full compliance with coding requirements relating to patient care, provider participation is requested in all cases of physician coder uncertainty. Please assist us with the question(s) below: Coding Question(s): Your documentation states CKD stage V while Nephrology states CKD stage IV. Please clarify below: ( ) CKD V (X) CKD IV ( ) Other Please Explain: Thank you Johnny Esparza Principal Diagnosis: "that condition established after study, to be chiefly responsible for occasioning the admission of the patient to the hospital for care." Co-Existing Principal Diagnosis: "when two or more diagnoses equally meet the criteria for principal diagnosis as determined by the circumstances of admission, diagnostic work up, and/or therapy provided, and the Alphabetic Index, Tabular List, or another coding guideline does not provide sequencing direction, any one of the diagnoses may be sequenced first." "When the physician has documented what appears to be a current diagnosis in the body of the record, but has not included the diagnosis in the final diagnostic statement, the physician should be asked whether the diagnosis should be added." (Source Coding [facility] 2 QTR90. p3-4) SELINA
== END 2021-06-25 15:05 | disposition home or self-care (01) | DRG 291 ==
LOC: ED 10:53 → 2N 13:10